=== PATIENT | male | born 1985 | race Caucasian/White ===

== ENCOUNTER 2021-02-24 09:01 | Inpatient (IN) | payer BC ==
[2021-02-24] MEDS ORDERED: ACETAMINOPHEN TAB 500 MG TAB PO STA (10:07)
[2021-02-24] MEDS ORDERED: IBUPROFEN 600 MG TAB PO STA (10:08)
[2021-02-24] MEDS ORDERED: DEXAMETHASONE SOD PHOSPHATE 10 MG/ML 1 ML VIAL IV STA (10:08)
[2021-02-24] MEDS ORDERED: SODIUM CHLORIDE 0.9% 1,000 ML IV ONE (10:08)
--- NOTE | 2021-02-24 10:33 | XR ---
EXAMINATION TYPE: XR chest 1V portable DATE OF EXAM: 02/24/2021 COMPARISON: 02/21/2015 HISTORY: Cough TECHNIQUE: Single frontal view of the chest is obtained. FINDINGS: Patchy bilateral infiltrates are seen. Limited inspiration. Heart size normal. No pneumoth orax. Osseous structures are stable. IMPRESSION: Patchy bilateral infiltrates correlate for multifocal pneumonia.
[2021-02-24 11:23] LABS: Basophils % (A) 0 %; Eosinophils % (A) 0 %; HGB 15.4 gm/dL (13.0-17.5); Lymphocytes # (A) 0.6 k/uL (1.0-4.8); Lymphocytes % (A) 14 %; MCH 30.1 pg (25.0-35.0); MCHC 35.9 g/dL (31.0-37.0); MCV 83.9 fL (80.0-100.0); Mean Platelet Volume 9.2; Monocytes # (A) 0.2 k/uL (0-1.0); Monocytes % (A) 5 %; Neutrophils # (A) 3.4 k/uL (1.3-7.7); Neutrophils % (A) 80 %; Platelet Count 161 k/uL (150-450); RBC 5.13 m/uL (4.30-5.90); RDW 12.3 % (11.5-15.5); WBC 4.2 k/uL (3.8-10.6)
[2021-02-24 11:37] LABS: ALT 57 U/L (4-49); AST 98 U/L (17-59); African American GFR (CKD) >90 (>60 ml/min/1.73 sqM); Albumin 3.8 g/dL (3.5-5.0); Alkaline Phosphatase 53 U/L (38-126); Anion Gap 11 mmol/L; Blood Urea Nitrogen 8 mg/dL (9-20); C Reactive Protein 41.1 mg/L (<10.0); Calcium 7.8 mg/dL (8.4-10.2); Carbon Dioxide 26 mmol/L (22-30); Chloride 88 mmol/L (98-107); Glucose 98 mg/dL (74-99); LDH 1623 U/L (313-618); Non-African American GFR(CKD) >90 (>60 ml/min/1.73 sqM); Potassium 3.9 mmol/L (3.5-5.1); Sodium 125 mmol/L (137-145); Total Bilirubin 0.6 mg/dL (0.2-1.3); Total Protein 6.8 g/dL (6.3-8.2)
--- NOTE | 2021-02-24 12:14 | ED ---
SOB HPI <Phu Hinojosa - Last Filed: 02/24/21 13:14> - General Source: EMS Mode of arrival: EMS <Sherry Hernandez - Last Filed: 02/24/21 14:01> - General Chief Complaint: Shortness of Breath Stated Complaint: Covid+/sob Time Seen by Provider: 02/24/21 09:16 - History of Present Illness Initial Comments: 35-year-old male patient presents to the emergency department today for evaluation of increased shortness of breath chest tightness. Started having symptoms 12 days ago. Denies being on any medication for symptoms. It the last 3 days he has become more short of breath. States he has persistent cough. States when he coughs his chest hurts. Denies any dizziness or weakness. Denies any nausea or vomiting. Denies diarrhea. States he does have decreased appetite. Reports intermittent fevers. Denies any history of medical problems. Patient denies any recent rash, fever, chills, cough, chest pain, abdominal pain , diarrhea, constipation, back pain, numbness, tingling, dizziness, weakness, hematuria, dysuria, urinary urgency, urinary frequency, headache, visual changes, or any other complaints. (Sherry Hernandez) - Related Data Home Medications Medication Instructions Recorded Confirmed No Known Home Medications 02/24/21 02/24/21 Allergies Allergy/AdvReac Type Severity Reaction Status Date / Time No Known Allergies Allergy Verified 02/24/21 10:11 Review of Systems ROS Other: All systems not noted in ROS Statement are negative. <AshishPhu - Last Filed: 02/24/21 13:14> ROS Other: All systems not noted in ROS Statement are negative. <Sherry Hernandez - Last Filed: 02/24/21 14:01> ROS Statement: Those systems with pertinent positive or pertinent negative responses have been documented in the HPI. Past Medical History Past Medical History: Asthma History of Any Multi-Drug Resistant Organisms: None Reported Past Surgical History: No Surgical Hx Reported Past Psychological History: No Psychological Hx Reported Smoking Status: Never smoker Past Alcohol Use History: None Reported Past Drug Use History: None Reported <Sherry Hernandez - Last Filed: 02/24/21 14:01> General Exam General appearance: alert, in no apparent distress, other (This is a well- developed, well-nourished adult male patient in mild respiratory distress. Vital signs upon presentation are temperature 103.0F, pulse 92, respirations 18, blood pressure 124/77, pulse ox 92%.) ENT exam: Present: normal exam, normal oropharynx, mucous membranes moist Respiratory exam: Present: normal lung sounds bilaterally, other (Tachypneic). Absent: respiratory distress, wheezes, rales, rhonchi, stridor Cardiovascular Exam: Present: regular rate, normal rhythm, normal heart sounds. Absent: systolic murmur, diastolic murmur, rubs, gallop, clicks GI/Abdominal exam: Present: soft, normal bowel sounds. Absent: distended, tenderness, guarding, rebound, rigid Neurological exam: Present: alert, oriented X3, CN II-XII intact Psychiatric exam: Present: normal affect, normal mood Skin exam: Present: warm, dry, intact, normal color. Absent: rash <Sherry Hernandez - Last Filed: 02/24/21 14:01> Course <Phu Hinojosa - Last Filed: 02/24/21 13:14> Vital Signs 02/24/21 02/24/21 02/24/21 09:06 12:18 12:21 Temperature 103 F H 101.4 F H Pulse Rate 92 80 Respiratory 18 24 Rate Blood Pressure 124/77 115/75 O2 Sat by Pulse 92 L 96 89 L Oximetry - Reevaluation(s) Reevaluation #1: 02/24/21 13:15 CURTAIN MENDER supervision I did evaluate this case I did discuss case Dr. Cowan. (Phu Hinojosa) Medical Decision Making - Lab Data Result diagrams: 02/24/21 10:11 02/24/21 10:11 <Phu Hinojosa - Last Filed: 02/24/21 13:14> - Lab Data Result diagrams: 02/24/21 10:11 02/24/21 10:11 - EKG Data -: EKG Interpreted by Me - Radiology Data Radiology results: report reviewed, image reviewed <Sherry Hernandez - Last Filed: 02/24/21 14:01> - Medical Decision Making 35-year-old male patient presents to the emergency department today for evaluation of increased shortness of breath and chest tightness. Symptoms of overt for the last 12 days. Physical examination did reveal tachypnea, clear lung sounds. Oxygen saturations were decreased. He was 89-90% with ambulation. Chest x-ray did show bilateral pneumonia. He will be admitted to the hospital and we will start vitamins, steroids, Lovenox. He will be ordered a Pro Air inhaler. He is agreeable with this plan. Dr. Cowan is accepting. Case discussed with my attending Dr. Hinojosa. (Sherry Hernandez) - Lab Data Lab Results 02/24/21 02/24/21 Range/Units 10:11 10:11 WBC 4.2 (3.8-10.6) k/uL RBC 5.13 (4.30-5.90) m/uL Hgb 15.4 (13.0-17.5) gm/dL Hct 43.0 (39.0-53.0) % MCV 83.9 (80.0-100.0) fL MCH 30.1 (25.0-35.0) pg MCHC 35.9 (31.0-37.0) g/dL RDW 12.3 (11.5-15.5) % Plt Count 161 (150-450) k/uL MPV 9.2 Neutrophils % 80 % Lymphocytes % 14 % Monocytes % 5 % Eosinophils % 0 % Basophils % 0 % Neutrophils # 3.4 (1.3-7.7) k/uL Lymphocytes # 0.6 L (1.0-4.8) k/uL Monocytes # 0.2 (0-1.0) k/uL Eosinophils # 0.0 (0-0.7) k/uL Basophils # 0.0 (0-0.2) k/uL Sodium 125 L (137-145) mmol/L Potassium 3.9 (3.5-5.1) mmol/L Chloride 88 L (98-107) mmol/L Carbon Dioxide 26 (22-30) mmol/L Anion Gap 11 mmol/L BUN 8 L (9-20) mg/dL Creatinine 0.94 (0.66-1.25) mg/dL Est GFR (CKD-EPI)AfAm >90 (>60 ml/min/1.73 sqM) Est GFR (CKD-EPI)NonAf >90 (>60 ml/min/1.73 sqM) Glucose 98 (74-99) mg/dL Calcium 7.8 L (8.4-10.2) mg/dL Total Bilirubin 0.6 (0.2-1.3) mg/dL AST 98 H (17-59) U/L ALT 57 H (4-49) U/L Alkaline Phosphatase 53 (38-126) U/L Lactate Dehydrogenase 1623 H (313-618) U/L C-Reactive Protein 41.1 H (<10.0) mg/L Total Protein 6.8 (6.3-8.2) g/dL Albumin 3.8 (3.5-5.0) g/dL - EKG Data EKG Comments: EKG obtained at 0905 shows normal sinus rhythm with a ventricular rate of 96, IN interval 160, QRS duration 98, QT 344, QTC 434. No evidence of ST elevation or depression. (Sherry Hernandez) - Radiology Data One view x-ray of the chest is obtained. Report is reviewed in its entirety. Impression by Dr. Saenz shows patchy bilateral infiltrates correlate for multifocal pneumonia. (Sherry Hernandez) Disposition <Phu Hinojosa - Last Filed: 02/24/21 13:14> Decision to Admit Reason: Admit from EC Decision Time: 13:19 <Sherry Hernandez - Last Filed: 02/24/21 14:01> Clinical Impression: COVID-19, Hypoxia Disposition: ADMITTED IP TO THIS [facility] Condition: Serious Referrals: Rosalia Hdz MD [Primary Care Provider] - 1-2 days
[2021-02-24] MEDS ORDERED: NALOXONE 0.4 MG/ML 1 ML VIAL IV PRN (13:15)
[2021-02-24] MEDS ORDERED: ONDANSETRON 4 MG/2 ML VIAL IVP PRN (13:15)
[2021-02-24] MEDS ORDERED: ENOXAPARIN 40 MG/0.4 ML SYRINGE SQ STA (13:17)
[2021-02-24] MEDS ORDERED: ALBUTEROL HFA INHALER INHALATION PRN (13:18)
[2021-02-24] MEDS: SODIUM CHLORIDE 0.9% 1,000 ML IV SCH (13:54)
[2021-02-24] MEDS: ALBUTEROL HFA INHALER INHALATION SCH ×2 (15:42→21:29)
--- NOTE | 2021-02-24 18:19 | P.CNPUL ---
History of Present Illness Consult date: 02/24/21 Reason for consult: dyspnea, pneumonia History of present illness: Morbidly obese 35-year-old male patient with a BMI of 42.1, Presenting to the emergency department with worsening shortness of breath. Symptoms started more than 10 days ago he thinks it started approximately 12 days ago. Over the past few days, he became more short of breath and he developed persistent cough and dyspnea for that reason he came into the emergency. No other symptoms of nausea vomiting or abdominal pain or diarrhea. No dizziness. No weakness. No headach es. He does have some diminished appetite. He wasn't having intermittent episodes of fever. The patient came into the emergency and the patient was febrile with a temperature of 103. He had a sodium level of 125, chloride of 88, and the white cell count was at 4.2 along with some lymphopenia. The patient had mild transaminitis with an AST of 98, ALT of 57, LDH was 1623, CRP was 41.1, normal renal function, potassium level was 3.9. EKG was showing a normal sinus rhythm. Chest x-ray showed patchy bilateral pulmonary infiltrates and multifocal pneumonia. For that reason, the patient was hospitalized. The patient is on 4 L about 2 by nasal cannula with a pulse ox of 96%. Room air pulse ox was around 88%. He was given steroids in the emergency department. The patient works at [employer] at [place] and there were lot of other individuals around them will were infected. Review of Systems Constitutional: Reports fatigue, Reports fever, Reports lethargy, Reports poor appetite Eyes: denies as per HPI, denies blurred vision, denies bulging eye, denies decreased vision, denies diplopia, denies discharge, denies dry eye, denies irritation, denies itching, denies pain, denies photophobia, denies loss of peripheral vision, denies loss of vision, denies tunnel vision/blind spots Ears: deny: decreased hearing, ear discharge, earache, tinnitus Ears, nose, mouth and throat: Denies headache, Denies sore throat Breasts: absent: as per HPI, gynecomastia Cardiovascular: Reports decreased exercise tolerance, Reports dyspnea on exertion Respiratory: Reports cough, Reports dyspnea Gastrointestinal: Reports as per HPI, Reports loss of appetite Genitourinary: Reports as per HPI, Reports flank pain Musculoskeletal: absent: ankle pain, ankle stiffness, ankle swelling, as per HPI, elbow pain, elbow stiffness, elbow swelling, foot pain, foot stiffness, foot swelling, hand pain, hand stiffness, hand swelling, hip pain, hip stiffness, hip swelling, knee pain, knee stiffness, knee swelling, shoulder pain, shoulder stiffness, shoulder swelling, wrist pain, wrist stiffness, wrist swelling Integumentary: Reports as per HPI Neurological: Reports as per HPI Psychiatric: Reports as per HPI Endocrine: Reports as per HPI, Reports fatigue Hematologic/Lymphatic: Reports as per HPI Allergic/Immunologic: Reports as per HPI Past Medical History Past Medical History: Asthma Additional Past Medical History / Comment(s): Pt tested covid + on 02/18/21 at [facility] on [address]. Other hx: Exertional asthma History of Any Multi-Drug Resistant Organisms: None Reported Past Surgical History: No Surgical Hx Reported Past Anesthesia/Blood Transfusion Reactions: Unable to Obtain Additional Past Anesthesia/Blood Transfusion Reaction / Comment(s): Pt has never had surgery Past Psychological History: No Psychological Hx Reported Smoking Status: Never smoker Past Alcohol Use History: None Reported Past Drug Use History: None Reported - Past Family History Father Family Medical History: Myocardial Infarction (VT) Additional Family Medical History / Comment(s): Father had MIs. Mother Family Medical History: Cancer Additional Family Medical History / Comment(s): Mother had breast cancer. Medications and Allergies Home Medications Medication Instructions Recorded Confirmed Type No Known Home Medications 02/24/21 02/24/21 History Allergies Allergy/AdvReac Type Severity Reaction Status Date / Time No Known Allergies Allergy Verified 02/24/21 10:11 Physical Exam Vitals: Vital Signs Temp Pulse Resp BP Pulse Ox 02/24/21 16:14 94 20 120/54 94 L 02/24/21 13:57 98.1 F 80 20 125/53 94 L 02/24/21 12:21 89 L 02/24/21 12:18 101.4 F H 80 24 115/75 96 02/24/21 09:06 103 F H 92 18 124/77 92 L Intake and Output 02/24/21 02/24/21 02/24/21 06:59 14:59 22:59 Other: Weight 129.274 kg Obese, comfortable, mildly labored breathing even at rest. BMI is 42.1. Not using accessory muscles of breathing. Head exam was generally normal. There was no scleral icterus or corneal arcus. Mucous membranes were moist. Neck was supple and without jugular venous distension, thyromegaly, or carotid bruits. Carotids were easily palpable bilaterally. There was no adenopathy. Lungs sounds are diminished in the patient's vessels are quite diminished bilaterally. Cardiac exam revealed the PMI to be normally situated and sized. The rhythm was regular and no extrasystoles were noted during several minutes of auscultation. The first and second heart sounds were normal and physiologic splitting of the second heart sound was noted. There were no murmurs, rubs, clicks, or gallops. Abdomen is soft. Organs cannot be accurately palpated as the patient is morbidl y obese. No direct tenderness but no rebound tenderness. No guarding. Examination of the extremities revealed easily palpable radial, femoral and pedal pulses. There was no cyanosis, clubbing or edema. Examination of the skin revealed no evidence of significant rashes, suspicious appearing nevi or other concerning lesions. Neurologically, the patient is awake and alert and the patient does not have any focal neurological deficit. Cranial nerves are essentially intact. Results - Laboratory Findings CBC and BMP: 02/24/21 10:11 02/24/21 10:11 Abnormal lab findings: Abnormal Labs 02/24/21 02/24/21 10:11 10:11 Lymphocytes # 0.6 L Sodium 125 L Chloride 88 L BUN 8 L Calcium 7.8 L AST 98 H ALT 57 H Lactate Dehydrogenase 1623 H C-Reactive Protein 41.1 H - Diagnostic Findings Chest x-ray: image reviewed Assessment and Plan Plan: 1 acute COVID-19 related to pneumonia. The patient developed bilateral pulmonary infiltrates consistent with COVID-19 related pneumonia. Blood work is consistent with COVID-19. LDH level is elevated. The patient has lymphopenia. D-dimer needs to be checked. Chest x-ray showing multifocal bilateral pneumonia. 2 acute hypoxic respiratory failure currently on 4 L of oxygen by nasal cannula 3 morbid obesity with a BMI 42 4 possible sleep breathing disorder/obstructive sleep apnea 5 lymphopenia 6 transaminitis secondary to COVID-19 7 hypochloremic hyponatremia Plan IV fluids with normal saline at the rate of 75 mL an hour Oxygen supplementation titrate the flow to maintain saturation above 90% Decadron 6 mg IV every 24 hours Lovenox 40 mg subcu every 24 hours Not a candidate for Remdesivir as the patient is outside the window We'll continue to follow. Monitor oxygenation. We'll continue to follow make further recommendations based on his progress
[2021-02-24] MEDS: ASCORBIC ACID 500 MG TAB PO SCH (21:12)
[2021-02-25] MEDS: ACETAMINOPHEN TAB 325 MG TAB PO PRN (04:41)
[2021-02-25] MEDS: SODIUM CHLORIDE 0.9% 1,000 ML IV SCH ×2 (05:32→17:39)
--- NOTE | 2021-02-25 09:48 | P.PN ---
Subjective Progress Note Date: 02/25/21 Osmar Drummond, is a 35-year-old male patient of Dr. Hdz, who presented to [facility] emergency room with a chief complaint of worsening shortness of breath and chest tightness. Patient was also having persistent cough his symptoms started 12 days ago however he had severe worsening of his symptoms in the last 3 days. He stated that last Saturday he was tested for COVID-19, results came back positive on Saturday. He was evaluated in the emergency room vital examination on presentation revealed a temperature of 103 pulse 92 respiration 18 blood pressure 124/77 pulse ox 92% on room air. White blood count was 4.2 hemoglobin 15.4 platelet count 161 sodium 125 potassium 3.9 chloride 88 calcium 7.8 BUN 8 creatinine 0.94 AST 98 ALT 57 LDH 1623 C-reactive protein 41.1 EKG done in the emergency room revealed normal sinus rhythm normal EKG, chest x-ray done in the emergency room revealed patchy bilateral infiltrates compatible with multifocal pneumonia no pneumothorax. Patient was admitted to medical floor pulmonary consultation was requested. On 02/25/2021 patient was seen and examined on the medical floor he is alert and oriented 3 in no distress, he is still complaining of cough and shortness of breath otherwise he denies any complaints there is no fever or chills no hea dache or dizziness no chest pain no nausea or vomiting no abdominal pain no diarrhea no blood in the stools no burning was urination no frequency or urgency and no hematuria Objective - Vital Signs Vital signs: Vital Signs Temp 101.8 F H 02/25/21 04:30 Pulse 113 H 02/25/21 04:30 Resp 34 H 02/25/21 04:30 BP 119/69 02/25/21 04:30 Pulse Ox 82 L 02/25/21 04:30 Intake & Output 02/24/21 02/25/21 02/25/21 18:59 06:59 18:59 Intake Total 1975 Output Total 1725 Balance 250 Weight 129.274 kg Intake: Intake, IV Titration 675 Amount Sodium Chloride 0.9% 1, 675 000 ml @ 75 mls/hr IV . [id number] TERI Rx#:[id number] Oral 1300 Output: Urine 1725 Other: # Bowel Movements 0 - Exam In general patient is alert and oriented 3 in no apparent distress HEENT head normocephalic and atraumatic Neck is supple no JVD no goiter no lymphadenopathy Chest exam reveals a few scattered crackles no wheezing Cardiac exam reveals regular heart sounds no gallops no murmurs Abdomen is soft nontender no organomegaly with normal bowel sounds Extremity exam reveals no edema no cyanosis or clubbing Neurological examination reveals no gross focal deficit - Labs CBC & Chem 7: 02/24/21 10:11 02/24/21 10:11 Labs: Abnormal Lab Results - Last 24 Hours (Table) 02/24/21 02/24/21 02/24/21 Range/Units 10:11 10:11 17:17 Lymphocytes # 0.6 L (1.0-4.8) k/uL D-Dimer 0.75 H (<0.60) mg/L FEU Sodium 125 L (137-145) mmol/L Chloride 88 L (98-107) mmol/L BUN 8 L (9-20) mg/dL Calcium 7.8 L (8.4-10.2) mg/dL Ferritin 2011.5 H (22.0-322.0) ng/mL AST 98 H (17-59) U/L ALT 57 H (4-49) U/L Lactate Dehydrogenase 1623 H (313-618) U/L C-Reactive Protein 41.1 H (<10.0) mg/L Assessment and Plan Plan: 1. Acute COVID-19 pneumonia patient started on IV Decadron and subcu Lovenox pulmonary consultation was requested 2. Underlying history of asthma 3. Underlying history of morbid obesity 4. Hyponatremia, patient started on IV normal months leading 5. Elevated liver enzymes, will monitor closely At this time patient was seen and examined in the emergency room he was started on subcu Lovenox and IV dexamethasone, vitamin C and vitamin D and zinc supplements he was also started on inhaled bronchodilators patient will be admitted to medical floor pulmonary consultation was requested. Patient was seen by pulmonary he is maintained on oxygen supplements, IV Decadron, subcu Lovenox, patient has improved since yesterday
--- NOTE | 2021-02-25 09:49 | P.PN ---
Subjective Progress Note Date: 02/25/21 Morbidly obese 35-year-old male patient with a BMI of 42.1, Presenting to the emergency department with worsening shortness of breath. Symptoms started more than 10 days ago he thinks it started approximately 12 days ago. Over the past few days, he became more short of breath and he developed persistent cough and dyspnea for that reason he came into the emergency. No other symptoms of nausea vomiting or abdominal pain or diarrhea. No dizziness. No weakness. No headaches. He does have some diminished appetite. He wasn't having intermittent episodes of fever. The patient came into the emergency and the patient was febrile with a temperature of 103. He had a sodium level of 125, chloride of 88, and the white cell count was at 4.2 along with some lymphopenia. The patient had mild transaminitis with an AST of 98, ALT of 57, LDH was 1623, CRP was 41.1, normal renal function, potassium level was 3.9. EKG was showing a normal sinus rhythm. Chest x-ray showed patchy bilateral pulmonary infiltrates and multifocal pneumonia. For that reason, the patient was hospitalized. The patient is on 4 L about 2 by nasal cannula with a pulse ox of 96%. Room air pulse ox was around 88%. He was given steroids in the emergency department. The patient works at [employer] at [place] and there were lot of other individuals around them will were infected. On today's evaluation of , the patient remains on 4 L of oxygen by nasal cannula with a pulse ox of low 90s. Still having a fever. His T-max was 101.4 which she is taking Tylenol. He is currently on Decadron 6 mg IV every 24 hours and the patient is also on Lovenox for DVT prophylaxis. Blood work from today is pending. D-dimer is still low.. Is hard for him to swallow and the patient is having a diminished appetite. He remains on IV fluids. His appetite remains quite diminished. Breathing is comfortable. Oxygenation has remained the same Objective - Vital Signs Vital signs: Vital Signs Temp 101.4 F H 02/25/21 08:00 Pulse 98 02/25/21 08:00 Resp 18 02/25/21 08:00 BP 134/81 02/25/21 08:00 Pulse Ox 90 L 02/25/21 08:00 Intake & Output 02/24/21 02/25/21 02/25/21 18:59 06:59 18:59 Intake Total 1974 Output Total 1725 Balance 250 Weight 129.274 kg Intake: Intake, IV Titration 675 Amount Sodium Chloride 0.9% 1, 675 000 ml @ 75 mls/hr IV . [id number] TERI Rx#:[id number] Oral 1300 Output: Urine 1725 Other: # Bowel Movements 0 - Exam Obese, comfortable, mildly labored breathing even at rest. BMI is 42.1. Not using accessory muscles of breathing. Head exam was generally normal. There was no scleral icterus or corneal arcus. Mucous membranes were moist. Neck was supple and without jugular venous distension, thyromegaly, or carotid bruits. Carotids were easily palpable bilaterally. There was no adenopathy. Lungs sounds are diminished in the patient's vessels are quite diminished bilaterally. Cardiac exam revealed the PMI to be normally situated and sized. The rhythm was regular and no extrasystoles were noted during several minutes of auscultation. The first and second heart sounds were normal and physiologic splitting of the second heart sound was noted. There were no murmurs, rubs, clicks, or gallops. Abdomen is soft. Organs cannot be accurately palpated as the patient is morbidl y obese. No direct tenderness but no rebound tenderness. No guarding. Examination of the extremities revealed easily palpable radial, femoral and pedal pulses. There was no cyanosis, clubbing or edema. Examination of the skin revealed no evidence of significant rashes, suspicious appearing nevi or other concerning lesions. Neurologically, the patient is awake and alert and the patient does not have any focal neurological deficit. Cranial nerves are essentially intact. - Labs CBC & Chem 7: 02/24/21 10:11 02/24/21 10:11 Labs: Abnormal Lab Results - Last 24 Hours (Table) 02/24/21 02/24/21 02/24/21 Range/Units 10:11 10:11 17:17 Lymphocytes # 0.6 L (1.0-4.8) k/uL D-Dimer 0.75 H (<0.60) mg/L FEU Sodium 125 L (137-145) mmol/L Chloride 88 L (98-107) mmol/L BUN 8 L (9-20) mg/dL Calcium 7.8 L (8.4-10.2) mg/dL Ferritin 2011.5 H (22.0-322.0) ng/mL AST 98 H (17-59) U/L ALT 57 H (4-49) U/L Lactate Dehydrogenase 1623 H (313-618) U/L C-Reactive Protein 41.1 H (<10.0) mg/L Assessment and Plan Plan: 1 acute COVID-19 related to pneumonia. The patient developed bilateral pulmonary infiltrates consistent with COVID-19 related pneumonia. Blood work is consistent with COVID-19. LDH level is elevated. The patient has lymphopenia. D-dimer needs to be checked. Chest x-ray showing multifocal bilateral pneumonia.. The patient continues to have fever on today's evaluation and he remains on oxygen at 4 L per minute nasal cannula. No decompensation and his respiratory status. He remains on IV fluids, Decadron and Lovenox. 2 acute hypoxic respiratory failure currently on 4 L of oxygen by nasal cannula 3 morbid obesity with a BMI 42 4 possible sleep breathing disorder/obstructive sleep apnea 5 lymphopenia 6 transaminitis secondary to COVID-19 7 hypochloremic hyponatremia Plan IV fluids with normal saline at the rate of 75 mL an hour Oxygen supplementation titrate the flow to maintain saturation above 90%, currently still on 4 L Decadron 6 mg IV every 24 hours Lovenox 40 mg subcu every 24 hours Not a candidate for Remdesivir as the patient is outside the window We'll continue to follow. Monitor oxygenation. We'll continue to follow make further recommendations based on his progress
[2021-02-25] MEDS: ALBUTEROL HFA INHALER INHALATION SCH ×4 (09:50→20:45)
[2021-02-25] MEDS: ZINC SULFATE 220 MG CAP PO SCH (10:00)
[2021-02-25] MEDS: DEXAMETHASONE SOD PHOSPHATE 10 MG/ML 1 ML VIAL IV SCH (10:01)
[2021-02-25] MEDS: ASCORBIC ACID 500 MG TAB PO SCH ×2 (10:01→21:10)
[2021-02-25] MEDS: ENOXAPARIN 40 MG/0.4 ML SYRINGE SQ SCH (10:01)
[2021-02-25] MEDS: CHOLECALCIFEROL 25 MCG (1000 IU) TABLET PO SCH (10:01)
[2021-02-25 11:10] LABS: Basophils % (A) 0 %; Eosinophils % (A) 0 %; HCT 42.8 % (39.0-53.0); HGB 14.6 gm/dL (13.0-17.5); Lymphocytes # (A) 0.6 k/uL (1.0-4.8); Lymphocytes % (A) 11 %; MCH 29.2 pg (25.0-35.0); MCHC 34.2 g/dL (31.0-37.0); MCV 85.2 fL (80.0-100.0); Mean Platelet Volume 8.2; Monocytes # (A) 0.2 k/uL (0-1.0); Monocytes % (A) 4 %; Neutrophils # (A) 4.8 k/uL (1.3-7.7); Neutrophils % (A) 85 %; Platelet Count 177 k/uL (150-450); RBC 5.02 m/uL (4.30-5.90); RDW 12.4 % (11.5-15.5); WBC 5.7 k/uL (3.8-10.6)
[2021-02-25 11:27] LABS: ALT 46 U/L (4-49); AST 77 U/L (17-59); African American GFR (CKD) >90 (>60 ml/min/1.73 sqM); Albumin 3.4 g/dL (3.5-5.0); Alkaline Phosphatase 48 U/L (38-126); Anion Gap 6 mmol/L; Blood Urea Nitrogen 13 mg/dL (9-20); Carbon Dioxide 29 mmol/L (22-30); Chloride 94 mmol/L (98-107); Glucose 124 mg/dL (74-99); LDH 1440 U/L (313-618); Non-African American GFR(CKD) >90 (>60 ml/min/1.73 sqM); Potassium 4.4 mmol/L (3.5-5.1); Sodium 129 mmol/L (137-145); Total Bilirubin 0.6 mg/dL (0.2-1.3); Total Protein 6.2 g/dL (6.3-8.2)
[2021-02-26] MEDS: SODIUM CHLORIDE 0.9% 1,000 ML IV SCH ×2 (05:45→20:50)
[2021-02-26] MEDS: ALBUTEROL HFA INHALER INHALATION SCH ×4 (07:38→19:47)
[2021-02-26] MEDS: DEXAMETHASONE SOD PHOSPHATE 10 MG/ML 1 ML VIAL IV SCH (09:15)
[2021-02-26] MEDS: ASCORBIC ACID 500 MG TAB PO SCH ×2 (09:15→20:49)
[2021-02-26] MEDS: CHOLECALCIFEROL 25 MCG (1000 IU) TABLET PO SCH (09:15)
[2021-02-26] MEDS: ENOXAPARIN 40 MG/0.4 ML SYRINGE SQ SCH (09:16)
[2021-02-26] MEDS: ZINC SULFATE 220 MG CAP PO SCH (09:16)
--- NOTE | 2021-02-26 10:02 | P.PN ---
Subjective Progress Note Date: 02/26/21 Morbidly obese 35-year-old male patient with a BMI of 42.1, Presenting to the emergency department with worsening shortness of breath. Symptoms started more than 10 days ago he thinks it started approximately 12 days ago. Over the past few days, he became more short of breath and he developed persistent cough and dyspnea for that reason he came into the emergency. No other symptoms of nausea vomiting or abdominal pain or diarrhea. No dizziness. No weakness. No headaches. He does have some diminished appetite. He wasn't having intermittent episodes of fever. The patient came into the emergency and the patient was febrile with a temperature of 103. He had a sodium level of 125, chloride of 88, and the white cell count was at 4.2 along with some lymphopenia. The patient had mild transaminitis with an AST of 98, ALT of 57, LDH was 1623, CRP was 41.1, normal renal function, potassium level was 3.9. EKG was showing a normal sinus rhythm. Chest x-ray showed patchy bilateral pulmonary infiltrates and multifocal pneumonia. For that reason, the patient was hospitalized. The patient is on 4 L about 2 by nasal cannula with a pulse ox of 96%. Room air pulse ox was around 88%. He was given steroids in the emergency department. The patient works at [employer] and there were lot of other individuals around them will were infected. On today's evaluation of , the patient remains on 4 L of oxygen by nasal cannula with a pulse ox of low 90s. Still having a fever. His T-max was 101.4 which she is taking Tylenol. He is currently on Decadron 6 mg IV every 24 hours and the patient is also on Lovenox for DVT prophylaxis. Blood work from today is pending. D-dimer is still low.. Is hard for him to swallow and the patient is having a diminished appetite. He remains on IV fluids. His appetite remains quite diminished. Breathing is comfortable. Oxygenation has remained the same 02/26/2021, the patient remains on oxygen at 4 L per minute and he is able to maintain his pulse ox above 90%. He was having persistent fever and currently he is afebrile. His last temperature spike was yesterday at 8:00 where he had a temperature of 101.4. Since then, the patient has not spiked any temperature. He also has been taking Tylenol on an as-needed basis for fever. He remains on Decadron 16 g IV every 24 hours. He is on multivitamin supplements. His d- dimer was low and the patient was given Lovenox for DVT prophylaxis and his d- dimer today's at 0.7 and his LDH level is down to 1440 and his CRP level is down to 6.0. Clinically is doing well. His IV fluids. Sodium level is improving it's up to 129. Objective - Vital Signs Vital signs: Vital Signs Temp 98.5 F 02/26/21 08:00 Pulse 100 02/26/21 08:00 Resp 18 02/26/21 08:00 BP 132/83 02/26/21 08:00 Pulse Ox 87 L 02/26/21 08:00 Intake & Output 02/25/21 02/26/21 02/26/21 18:59 06:59 18:59 Intake Total 240 3180 Output Total 1350 2450 Balance -1110 730 Weight 129.274 kg Intake: Intake, IV Titration 900 Amount Sodium Chloride 0.9% 1, 900 000 ml @ 75 mls/hr IV . [id number] [facility] Rx#:[id number] Oral 240 2280 Output: Urine 1350 2450 Other: # Voids 3 # Bowel Movements 0 - Exam Obese, comfortable, mildly labored breathing even at rest. BMI is 42.1. Not using accessory muscles of breathing. Head exam was generally normal. There was no scleral icterus or corneal arcus. Mucous membranes were moist. Neck was supple and without jugular venous distension, thyromegaly, or carotid bruits. Carotids were easily palpable bilaterally. There was no adenopathy. Lungs sounds are diminished in the patient's vessels are quite diminished bilaterally. Cardiac exam revealed the PMI to be normally situated and sized. The rhythm was regular and no extrasystoles were noted during several minutes of auscultation. The first and second heart sounds were normal and physiologic splitting of the second heart sound was noted. There were no murmurs, rubs, clicks, or gallops. Abdomen is soft. Organs cannot be accurately palpated as the patient is morbidly obese. No direct tenderness but no rebound tenderness. No guarding. Examination of the extremities revealed easily palpable radial, femoral and pedal pulses. There was no cyanosis, clubbing or edema. Examination of the skin revealed no evidence of significant rashes, suspicious appearing nevi or other concerning lesions. Neurologically, the patient is awake and alert and the patient does not have any focal neurological deficit. Cranial nerves are essentially intact. - Labs CBC & Chem 7: 02/25/21 10:10 02/25/21 10:10 Labs: Abnormal Lab Results - Last 24 Hours (Table) 02/25/21 02/25/21 02/25/21 Range/Units 10:10 10:10 10:10 Lymphocytes # 0.6 L (1.0-4.8) k/uL D-Dimer 0.77 H (<0.60) mg/L FEU Sodium 129 L (137-145) mmol/L Chloride 94 L (98-107) mmol/L Glucose 124 H (74-99) mg/dL Calcium 8.0 L (8.4-10.2) mg/dL AST 77 H (17-59) U/L Lactate Dehydrogenase 1440 H (313-618) U/L C-Reactive Protein 6.0 H (<1.0) mg/dL Total Protein 6.2 L (6.3-8.2) g/dL Albumin 3.4 L (3.5-5.0) g/dL Assessment and Plan Plan: 1 acute COVID-19 related to pneumonia. The patient developed bilateral pulmonary infiltrates consistent with COVID-19 related pneumonia. Blood work is consistent with COVID-19. LDH level is elevated. The patient has lymphopenia. . Chest x-ray showing multifocal bilateral pneumonia.. The patient is afebrile and he on oxygen at 4 L per minute nasal cannula. No decompensation and his respiratory status. He remains on IV fluids, Decadron and Lovenox. 2 acute hypoxic respiratory failure currently on 4 L of oxygen by nasal cannula 3 morbid obesity with a BMI 42 4 possible sleep breathing disorder/obstructive sleep apnea 5 lymphopenia 6 transaminitis secondary to COVID-19 7 hypochloremic hyponatremia improving and his sodium level is up to 129 Plan IV fluids with normal saline at the rate of 75 mL an hour Oxygen supplementation titrate the flow to maintain saturation above 90%, currently still on 4 L Decadron 6 mg IV every 24 hours Lovenox 40 mg subcu every 24 hours Not a candidate for Remdesivir as the patient is outside the window Significant interval worsening or improvement and the patient continues to be somewhat short of breath and he wants to go home. I think at this is possible after we confirm that the patient does not demonstrate any worsening in his oxygenation over the next 24-48 hours. A repeat chest x-ray will be done today. We'll continue to follow. Subsequently, during her evaluation, the patient was found to have lower pulse ox the right titrated flow up to maintain a saturation above 90% and the patient will be given a immediate chest x-ray. I personally feel that the patient has progressed and his oxygenation is worse and his breathing is more labored. I would not send this patient home at any point in time for now pending further workup and monitoring. We'll continue to follow. Monitor oxygenation. We'll continue to follow make further recommendations based on his progress
[2021-02-26] MEDS: ALPRAZolam 0.5 MG TAB PO PRN (10:12)
--- NOTE | 2021-02-26 10:31 | XR ---
EXAMINATION TYPE: XR chest 1V portable DATE OF EXAM: 02/26/2021 CLINICAL HISTORY: Difficulty breathing and cough progress study. TECHNIQUE: Single AP portable upright view of the chest is obtained. COMPARISON: Chest x-ray from 2 days earlier FINDINGS: Persistent low lung volumes with mid to lower lung increased opacities bilaterally. Stable mild cardiomegaly. Osseous structures remain intact. IMPRESSION: Low lung volumes with persistent mid to lower lungs multifocal and confluent opacities co nsistent with covid-19 infection, no significant change from most recent x-ray.
[2021-02-26 11:37] LABS: Basophils % (A) 0 %; Eosinophils % (A) 0 %; HCT 40.7 % (39.0-53.0); HGB 14.2 gm/dL (13.0-17.5); Lymphocytes # (A) 0.5 k/uL (1.0-4.8); Lymphocytes % (A) 7 %; MCH 29.5 pg (25.0-35.0); MCHC 34.8 g/dL (31.0-37.0); MCV 84.7 fL (80.0-100.0); Mean Platelet Volume 8.1; Monocytes # (A) 0.3 k/uL (0-1.0); Monocytes % (A) 4 %; Neutrophils # (A) 6.1 k/uL (1.3-7.7); Neutrophils % (A) 88 %; Platelet Count 230 k/uL (150-450); RBC 4.81 m/uL (4.30-5.90); RDW 12.7 % (11.5-15.5); WBC 6.9 k/uL (3.8-10.6)
[2021-02-26 11:51] LABS: ALT 46 U/L (4-49); AST 76 U/L (17-59); African American GFR (CKD) >90 (>60 ml/min/1.73 sqM); Albumin 3.3 g/dL (3.5-5.0); Alkaline Phosphatase 50 U/L (38-126); Anion Gap 7 mmol/L; Blood Urea Nitrogen 16 mg/dL (9-20); C Reactive Protein 7.2 mg/dL (<1.0); Carbon Dioxide 26 mmol/L (22-30); Chloride 93 mmol/L (98-107); Glucose 113 mg/dL (74-99); LDH 1735 U/L (313-618); Non-African American GFR(CKD) >90 (>60 ml/min/1.73 sqM); Potassium 4.7 mmol/L (3.5-5.1); Sodium 126 mmol/L (137-145); Total Bilirubin 0.7 mg/dL (0.2-1.3); Total Protein 6.2 g/dL (6.3-8.2)
--- NOTE | 2021-02-26 13:37 | P.PN ---
Subjective Progress Note Date: 02/26/21 Osmar Drummond, is a 35-year-old male patient of Dr. Hdz, who presented to [facility] emergency room with a chief complaint of worsening shortness of breath and chest tightness. Patient was also having persistent cough his symptoms started 12 days ago however he had severe worsening of his symptoms in the last 3 days. He stated that last Saturday he was tested for COVID-19, results came back positive on Saturday. He was evaluated in the emergency room vital examination on presentation revealed a temperature of 103 pulse 92 respiration 18 blood pressure 124/77 pulse ox 92% on room air. White blood count was 4.2 hemoglobin 15.4 platelet count 161 sodium 125 potassium 3.9 chloride 88 calcium 7.8 BUN 8 creatinine 0.94 AST 98 ALT 57 LDH 1623 C-reactive protein 41.1 EKG done in the emergency room revealed normal sinus rhythm normal EKG, chest x-ray done in the emergency room revealed patchy bilateral infiltrates compatible with multifocal pneumonia no pneumothorax. Patient was admitted to medical floor pulmonary consultation was requested. On 02/25/2021 patient was seen and examined on the medical floor he is alert and oriented 3 in no distress, he is still complaining of cough and shortness of breath otherwise he denies any complaints there is no fever or chills no hea dache or dizziness no chest pain no nausea or vomiting no abdominal pain no diarrhea no blood in the stools no burning was urination no frequency or urgency and no hematuria. On 02/26/2021 patient was seen and examined on the medical floor he is alert and oriented 3 in no distress he seems to be worse today he is having more tachycardia and tachypnea, his temperature is 99.8 pulse ox is down to 82% on 15 L high flow cannula inflammatory markers are up his LDH is 1735 up from 1440 yesterday C-reactive protein is up to 7.2 up from 6 yesterday d-dimer is up to 1.21 up from 0.77 yesterday, at this time patient is maintained on inhaled bronchodilators, IV Decadron, subcu Lovenox,, repeat chest x-ray done today reveals by basilar infiltrates and opacities consistent with COVID-19 infection without any significant change from previous x-ray. Objective - Vital Signs Vital signs: Vital Signs Temp 98.5 F 02/26/21 08:00 Pulse 100 02/26/21 08:00 Resp 18 02/26/21 08:00 BP 132/83 02/26/21 08:00 Pulse Ox 87 L 02/26/21 08:00 Intake & Output 02/25/21 02/26/21 02/26/21 18:59 06:59 18:59 Intake Total 240 3180 Output Total 1350 2450 Balance -1110 730 Weight 129.274 kg Intake: Intake, IV Titration 900 Amount Sodium Chloride 0.9% 1, 900 000 ml @ 75 mls/hr IV . [id number] [facility] Rx#:[id number] Oral 240 2280 Output: Urine 1350 2450 Other: Voiding Method Urinal # Voids 3 # Bowel Movements 0 - Exam In general patient is alert and oriented 3 in no apparent distress HEENT head normocephalic and atraumatic Neck is supple no JVD no goiter no lymphadenopathy Chest exam reveals a few scattered crackles no wheezing Cardiac exam reveals regular heart sounds no gallops no murmurs Abdomen is soft nontender no organomegaly with normal bowel sounds Extremity exam reveals no edema no cyanosis or clubbing Neurological examination reveals no gross focal deficit - Labs CBC & Chem 7: 02/26/21 10:58 02/26/21 10:58 Labs: Abnormal Lab Results - Last 24 Hours (Table) 02/25/21 02/25/21 02/25/21 Range/Units 10:10 10:10 10:10 Lymphocytes # 0.6 L (1.0-4.8) k/uL D-Dimer 0.77 H (<0.60) mg/L FEU Sodium 129 L (137-145) mmol/L Chloride 94 L (98-107) mmol/L Glucose 124 H (74-99) mg/dL Calcium 8.0 L (8.4-10.2) mg/dL AST 77 H (17-59) U/L Lactate Dehydrogenase 1440 H (313-618) U/L C-Reactive Protein 6.0 H (<1.0) mg/dL Total Protein 6.2 L (6.3-8.2) g/dL Albumin 3.4 L (3.5-5.0) g/dL Assessment and Plan Plan: 1. Acute COVID-19 pneumonia patient started on IV Decadron and subcu Lovenox pulmonary consultation was requested 2. Underlying history of asthma 3. Underlying history of morbid obesity 4. Hyponatremia, patient started on IV normal months leading 5. Elevated liver enzymes, will monitor closely At this time patient was seen and examined in the emergency room he was started on subcu Lovenox and IV dexamethasone, vitamin C and vitamin D and zinc supplements he was also started on inhaled bronchodilators patient will be admitted to medical floor pulmonary consultation was requested. Patient was seen by pulmonary he is maintained on oxygen supplements, IV Decadron, subcu Lovenox, patient has improved since yesterday
[2021-02-27 08:16] LABS: Basophils % (A) 0 %; Eosinophils % (A) 0 %; HGB 13.8 gm/dL (13.0-17.5); Lymphocytes # (A) 0.6 k/uL (1.0-4.8); Lymphocytes % (A) 9 %; MCH 30.1 pg (25.0-35.0); MCHC 35.5 g/dL (31.0-37.0); MCV 84.8 fL (80.0-100.0); Monocytes # (A) 0.3 k/uL (0-1.0); Monocytes % (A) 4 %; Neutrophils # (A) 5.3 k/uL (1.3-7.7); Neutrophils % (A) 85 %; Platelet Count 262 k/uL (150-450); RBC 4.59 m/uL (4.30-5.90); RDW 12.9 % (11.5-15.5); WBC 6.2 k/uL (3.8-10.6)
--- NOTE | 2021-02-27 08:20 | XR ---
EXAMINATION TYPE: XR chest 1V portable DATE OF EXAM: 02/27/2021 COMPARISON: Chest x-ray 02/26/2021 HISTORY: Covid pneumonia, abnormal chest x-ray TECHNIQUE: Single frontal view of the chest is obtained. FINDINGS: Bilateral airspace disease is present. Density somewhat more confluent, exam is expiratory and rotated. No evident pneumothorax or pleural effusion. Cardiomediastinal silhouette thought likel y to be stable accounting for differences in technique. IMPRESSION: Correlate for pneumonia.
[2021-02-27] MEDS: ALBUTEROL HFA INHALER INHALATION SCH ×4 (08:21→21:17)
[2021-02-27 08:29] LABS: ALT 43 U/L (4-49); AST 69 U/L (17-59); African American GFR (CKD) >90 (>60 ml/min/1.73 sqM); Albumin 3.1 g/dL (3.5-5.0); Alkaline Phosphatase 46 U/L (38-126); Anion Gap 8 mmol/L; Blood Urea Nitrogen 13 mg/dL (9-20); C Reactive Protein 8.9 mg/dL (<1.0); Calcium 7.8 mg/dL (8.4-10.2); Carbon Dioxide 25 mmol/L (22-30); Chloride 94 mmol/L (98-107); Glucose 106 mg/dL (74-99); LDH 1969 U/L (313-618); Non-African American GFR(CKD) >90 (>60 ml/min/1.73 sqM); Sodium 127 mmol/L (137-145); Total Bilirubin 0.7 mg/dL (0.2-1.3); Total Protein 5.9 g/dL (6.3-8.2)
[2021-02-27] MEDS: SODIUM CHLORIDE 0.9% 1,000 ML IV SCH ×2 (09:10→21:28)
[2021-02-27] MEDS: DEXAMETHASONE SOD PHOSPHATE 10 MG/ML 1 ML VIAL IV SCH (09:11)
[2021-02-27] MEDS: ASCORBIC ACID 500 MG TAB PO SCH ×2 (09:11→21:28)
[2021-02-27] MEDS: CHOLECALCIFEROL 25 MCG (1000 IU) TABLET PO SCH (09:11)
[2021-02-27] MEDS: ZINC SULFATE 220 MG CAP PO SCH (09:11)
[2021-02-27] MEDS: ENOXAPARIN 40 MG/0.4 ML SYRINGE SQ SCH (09:12)
--- NOTE | 2021-02-27 13:05 | P.PN ---
Subjective Progress Note Date: 02/27/21 Principal diagnosis: Shortness of breath. Progress note dated 02/27/2021. 35-year-old male admitted with a diagnosis of acute hypoxemic respiratory failure secondary to COVID 19 pneumonia. Chest x-ray showed multifocal bilateral infiltrates. In addition, the patient is morbidly obese, likely has sleep apnea syndrome, has lymphopenia, hyponatremia, and elevated liver function tests, all secondary to COVID 19. Currently, the patient's on saline at 75 mL an hour, and high flow nasal O2 at 15 L/m. White count 6.2, hemoglobin 13.8, hematocrit 39.0, and platelet count 262,000. D-dimer is 1.51. Sodium 127, potassium 4, chlorides 94, CO2 25, anion gap 8, BUN 13, creatinine 0.81. LDH is 1969, and C-reactive protein is 8.9. Chest x-ray shows bilateral infiltrates. Objective - Vital Signs Vital signs: Vital Signs Temp 99.1 F 02/27/21 08:35 Pulse 100 02/27/21 08:35 Resp 20 02/27/21 08:35 BP 121/84 02/27/21 08:35 Pulse Ox 87 L 02/27/21 08:35 Intake & Output 02/26/21 02/27/21 02/27/21 18:59 06:59 18:59 Intake Total 600 Output Total 1300 500 Balance -1300 100 Intake: Intake, IV Titration 600 Amount Sodium Chloride 0.9% 1, 600 000 ml @ 75 mls/hr IV . [id number] [facility] Rx#:[id number] Output: Urine 1300 500 Other: Voiding Method Urinal Urinal # Voids 1 # Bowel Movements 1 1 - Exam No acute distress, oriented 3. Currently on 15 L high flow nasal O2. HEENT examination is grossly unremarkable. Neck supple. Full range of motion. No adenopathy thyromegaly or neck vein distention. Cardiovascular examination reveals regular rhythm rate. S1-S2 normal. No S3 or S4. No discernible murmur noted. Heart sounds are distant. Lungs reveal diffuse bilateral rhonchi. No wheezes. Breath sounds equal bilaterally. Some bibasilar crackles are noted. Abdomen soft bowel sounds are heard. No masses or tenderness. Extremities are intact. No cyanosis clubbing or edema. Skin is without rash or lesion. Neurologic examination is brief but nonfocal. - Labs CBC & Chem 7: 02/27/21 07:48 02/27/21 07:48 Labs: Abnormal Lab Results - Last 24 Hours (Table) 02/27/21 02/27/21 02/27/21 Range/Units 07:48 07:48 07:48 Lymphocytes # 0.6 L (1.0-4.8) k/uL D-Dimer 1.51 H (<0.60) mg/L FEU Sodium 127 L (137-145) mmol/L Chloride 94 L (98-107) mmol/L Glucose 106 H (74-99) mg/dL Calcium 7.8 L (8.4-10.2) mg/dL AST 69 H (17-59) U/L Lactate Dehydrogenase 1969 H (313-618) U/L C-Reactive Protein 8.9 H (<1.0) mg/dL Total Protein 5.9 L (6.3-8.2) g/dL Albumin 3.1 L (3.5-5.0) g/dL Assessment and Plan Assessment: Acute hypoxemic respiratory failure, secondary to COVID 19 pneumonia/pneumonitis. Morbid obesity. Possible sleep apnea syndrome. Lymphopenia. Elevated liver function tests, secondary to coronavirus infection. Hyponatremia, improved. Plan: Plan dated 02/27/2021. The patient remains on saline 75 mL an hour, and nasal O2, high flow, and 15 L/m. The patient remains on Decadron and Lovenox. The patient was outside the window for REM. We will continue to follow. Prognosis is guarded. No additi onal recommendations are made. Time with Patient: Less than 30
--- NOTE | 2021-02-27 16:41 | P.PN ---
Subjective Progress Note Date: 02/27/21 Osmar Drummond, is a 35-year-old male patient of Dr. Hdz, who presented to [facility] emergency room with a chief complaint of worsening shortness of breath and chest tightness. Patient was also having persistent cough his symptoms started 12 days ago however he had severe worsening of his symptoms in the last 3 days. He stated that last Saturday he was tested for COVID-19, results came back positive on Saturday. He was evaluated in the emergency room vital examination on presentation revealed a temperature of 103 pulse 92 respiration 18 blood pressure 124/77 pulse ox 92% on room air. White blood count was 4.2 hemoglobin 15.4 platelet count 161 sodium 125 potassium 3.9 chloride 88 calcium 7.8 BUN 8 creatinine 0.94 AST 98 ALT 57 LDH 1623 C-reactive protein 41.1 EKG done in the emergency room revealed normal sinus rhythm normal EKG, chest x-ray done in the emergency room revealed patchy bilateral infiltrates compatible with multifocal pneumonia no pneumothorax. Patient was admitted to medical floor pulmonary consultation was requested. On 02/25/2021 patient was seen and examined on the medical floor he is alert and oriented 3 in no distress, he is still complaining of cough and shortness of breath otherwise he denies any complaints there is no fever or chills no hea dache or dizziness no chest pain no nausea or vomiting no abdominal pain no diarrhea no blood in the stools no burning was urination no frequency or urgency and no hematuria. On 02/26/2021 patient was seen and examined on the medical floor he is alert and oriented 3 in no distress he seems to be worse today he is having more tachycardia and tachypnea, his temperature is 99.8 pulse ox is down to 82% on 15 L high flow cannula inflammatory markers are up his LDH is 1735 up from 1440 yesterday C-reactive protein is up to 7.2 up from 6 yesterday d-dimer is up to 1.21 up from 0.77 yesterday, at this time patient is maintained on inhaled bronchodilators, IV Decadron, subcu Lovenox,, repeat chest x-ray done today reveals by basilar infiltrates and opacities consistent with COVID-19 infection without any significant change from previous x-ray on 02/27/2021 patient was seen and examined on the medical floor, he is alert and oriented 3 in no apparent distress he is reporting some improvement in his shortness of breath, vital exam reveals a temperature of 99.1 pulse 102 respiration 20 blood pressure 121/84 pulse ox 87% on 15 L high flow cannula, white blood count is 6.2 hemoglobin 13.8 platelet count 262 d-dimer 1.51 sodium 127 potassium 4.0 chloride 94 CO2 25 BUN 13 creatinine 0.81 LDH 1969 C-reactive protein up to 8.9, patient is complaining of cough and shortness of breath otherwise he denies any complaints there is no fever or chills no headache or dizziness no chest pain no nausea or vomiting no abdominal pain no diarrhea no blood in the stools no burning with urination no frequency or urgency and no hematuria Objective - Vital Signs Vital signs: Vital Signs Temp 99.1 F 02/27/21 08:35 Pulse 100 02/27/21 08:35 Resp 20 02/27/21 08:35 BP 121/84 02/27/21 08:35 Pulse Ox 87 L 02/27/21 08:35 Intake & Output 02/26/21 02/27/21 02/27/21 18:59 06:59 18:59 Intake Total 600 Output Total 1300 500 Balance -1300 100 Intake: Intake, IV Titration 600 Amount Sodium Chloride 0.9% 1, 600 000 ml @ 75 mls/hr IV . [id number] [facility] Rx#:[id number] Output: Urine 1300 500 Other: Voiding Method Urinal Urinal # Voids 1 # Bowel Movements 1 1 - Exam In general patient is alert and oriented 3 in no apparent distress HEENT head normocephalic and atraumatic Neck is supple no JVD no goiter no lymphadenopathy Chest exam reveals a few scattered crackles no wheezing Cardiac exam reveals regular heart sounds no gallops no murmurs Abdomen is soft nontender no organomegaly with normal bowel sounds Extremity exam reveals no edema no cyanosis or clubbing Neurological examination reveals no gross focal deficit - Labs CBC & Chem 7: 02/27/21 07:48 02/27/21 07:48 Labs: Abnormal Lab Results - Last 24 Hours (Table) 02/26/21 02/26/21 02/26/21 Range/Units 10:58 10:58 10:58 Lymphocytes # 0.5 L (1.0-4.8) k/uL D-Dimer 1.21 H (<0.60) mg/L FEU Sodium 126 L (137-145) mmol/L Chloride 93 L (98-107) mmol/L Glucose 113 H (74-99) mg/dL Calcium 8.0 L (8.4-10.2) mg/dL AST 76 H (17-59) U/L Lactate Dehydrogenase 1735 H (313-618) U/L C-Reactive Protein 7.2 H (<1.0) mg/dL Total Protein 6.2 L (6.3-8.2) g/dL Albumin 3.3 L (3.5-5.0) g/dL 02/27/21 02/27/21 02/27/21 Range/Units 07:48 07:48 07:48 Lymphocytes # 0.6 L (1.0-4.8) k/uL D-Dimer 1.51 H (<0.60) mg/L FEU Sodium 127 L (137-145) mmol/L Chloride 94 L (98-107) mmol/L Glucose 106 H (74-99) mg/dL Calcium 7.8 L (8.4-10.2) mg/dL AST 69 H (17-59) U/L Lactate Dehydrogenase 1969 H (313-618) U/L C-Reactive Protein 8.9 H (<1.0) mg/dL Total Protein 5.9 L (6.3-8.2) g/dL Albumin 3.1 L (3.5-5.0) g/dL Assessment and Plan Plan: 1. Acute COVID-19 pneumonia patient started on IV Decadron and subcu Lovenox pulmonary consultation was requested 2. Underlying history of asthma 3. Underlying history of morbid obesity 4. Hyponatremia, patient started on IV normal months leading 5. Elevated liver enzymes, will monitor closely At this time patient was seen and examined in the emergency room he was started on subcu Lovenox and IV dexamethasone, vitamin C and vitamin D and zinc supplements he was also started on inhaled bronchodilators patient will be admitted to medical floor pulmonary consultation was requested. Patient was seen by pulmonary he is maintained on oxygen supplements, IV Decadron, subcu Lovenox, patient has improved since yesterday
[2021-02-28] MEDS: CHOLECALCIFEROL 25 MCG (1000 IU) TABLET PO SCH (07:16)
[2021-02-28] MEDS: ZINC SULFATE 220 MG CAP PO SCH (07:16)
[2021-02-28] MEDS: ASCORBIC ACID 500 MG TAB PO SCH ×2 (07:17→20:50)
[2021-02-28] MEDS: SODIUM CHLORIDE 0.9% 1,000 ML IV SCH (07:17)
[2021-02-28] MEDS: DEXAMETHASONE SOD PHOSPHATE 10 MG/ML 1 ML VIAL IV SCH (07:17)
[2021-02-28] MEDS: ENOXAPARIN 40 MG/0.4 ML SYRINGE SQ SCH (07:18)
[2021-02-28] MEDS: ALBUTEROL HFA INHALER INHALATION SCH ×4 (08:19→20:28)
[2021-02-28] MEDS: ALPRAZolam 0.5 MG TAB PO PRN ×2 (08:22→16:54)
--- NOTE | 2021-02-28 13:01 | P.PN ---
Subjective Progress Note Date: 02/28/21 Principal diagnosis: Shortness of breath. Progress note dated 02/27/2021. 35-year-old male admitted with a diagnosis of acute hypoxemic respiratory failure secondary to COVID 19 pneumonia. Chest x-ray showed multifocal bilateral infiltrates. In addition, the patient is morbidly obese, likely has sleep apnea syndrome, has lymphopenia, hyponatremia, and elevated liver function tests, all secondary to COVID 19. Currently, the patient's on saline at 75 mL an hour, and high flow nasal O2 at 15 L/m. White count 6.2, hemoglobin 13.8, hematocrit 39.0, and platelet count 262,000. D-dimer is 1.51. Sodium 127, potassium 4, chlorides 94, CO2 25, anion gap 8, BUN 13, creatinine 0.81. LDH is 1969, and C-reactive protein is 8.9. Chest x-ray shows bilateral infiltrates. Progress note dated 02/28/2021. 35-year-old male with a diagnosis of acute hypoxemic respiratory failure secondary to COVID 19 pneumonia. Chest x-ray showed multifocal bilateral infiltrates. The patient also has obesity, sleep apnea syndrome, lymphopenia, hyponatremic, and liver function abnormalities, all consistent with coronavirus infection. Yesterday, the patient was on high flow nasal O2, and nonrebreather mask. This morning, the respiratory therapist switch him over to AIRVO, at 60 L/m and 90% FiO2. The patient is not receiving any IV fluids. D-dimer is 4.62. Objective - Vital Signs Vital signs: Vital Signs Temp 98.7 F 02/28/21 07:18 Pulse 114 H 02/28/21 10:10 Resp 26 H 02/28/21 10:10 BP 178/101 02/28/21 07:18 Pulse Ox 93 L 02/28/21 11:23 Intake & Output 02/27/21 02/28/21 02/28/21 18:59 06:59 18:59 Other: Voiding Method Urinal Urinal # Voids 0 - Exam No acute distress, oriented 3. Currently on AIRVO, at 60 L/m, and 90%. Saturations are 93%. HEENT examination is grossly unremarkable. Neck supple. Full range of motion. No adenopathy thyromegaly or neck vein distention. Cardiovascular examination reveals regular rhythm rate. S1-S2 normal. No S3 or S4. No discernible murmur noted. Heart sounds are distant. Heart rate is 114 bpm. Lungs reveal diffuse bilateral rhonchi. No wheezes. Breath sounds equal bilaterally. Some bibasilar crackles are noted. Abdomen soft bowel sounds are heard. No masses or tenderness. Extremities are intact. No cyanosis clubbing or edema. Skin is without rash or lesion. Neurologic examination is brief but nonfocal. - Labs CBC & Chem 7: 02/27/21 07:48 02/27/21 07:48 Labs: Abnormal Lab Results - Last 24 Hours (Table) 02/28/21 Range/Units 08:26 D-Dimer 4.62 H (<0.60) mg/L FEU Assessment and Plan Assessment: Acute hypoxemic respiratory failure, secondary to COVID 19 pneumonia/pneumonitis. Morbid obesity. Possible sleep apnea syndrome. Lymphopenia. Elevated liver function tests, secondary to coronavirus infection. Hyponatremia, improved. Plan: Plan dated 02/27/2021. The patient remains on saline 75 mL an hour, and nasal O2, high flow, and 15 L/m. The patient remains on Decadron and Lovenox. The patient was outside the window for REM. We will continue to follow. Prognosis is guarded. No additional recommendations are made. Plan dated 02/28/2021. The patient was placed on AIRVO. He seems to be more comfortable on this modality of providing him oxygen therapy. The patient is not receiving any IV fluids. Currently his medications appear to be appropriate including albuterol inhaler, vitamin C, vitamin D3, Decadron, Lovenox, and zinc. Additional recommendations and suggestions are forthcoming. We will continue to follow. The patient was outside the window for REM. Time with Patient: Less than 30
--- NOTE | 2021-02-28 17:46 | P.PN ---
Subjective Progress Note Date: 02/28/21 Osmar Drummond, is a 35-year-old male patient of Dr. Hdz, who presented to [facility] emergency room with a chief complaint of worsening shortness of breath and chest tightness. Patient was also having persistent cough his symptoms started 12 days ago however he had severe worsening of his symptoms in the last 3 days. He stated that last Saturday he was tested for COVID-19, results came back positive on Saturday. He was evaluated in the emergency room vital examination on presentation revealed a temperature of 103 pulse 92 respiration 18 blood pressure 124/77 pulse ox 92% on room air. White blood count was 4.2 hemoglobin 15.4 platelet count 161 sodium 125 potassium 3.9 chloride 88 calcium 7.8 BUN 8 creatinine 0.94 AST 98 ALT 57 LDH 1623 C-reactive protein 41.1 EKG done in the emergency room revealed normal sinus rhythm normal EKG, chest x-ray done in the emergency room revealed patchy bilateral infiltrates compatible with multifocal pneumonia no pneumothorax. Patient was admitted to medical floor pulmonary consultation was requested. On 02/25/2021 patient was seen and examined on the medical floor he is alert and oriented 3 in no distress, he is still complaining of cough and shortness of breath otherwise he denies any complaints there is no fever or chills no hea dache or dizziness no chest pain no nausea or vomiting no abdominal pain no diarrhea no blood in the stools no burning was urination no frequency or urgency and no hematuria. On 02/26/2021 patient was seen and examined on the medical floor he is alert and oriented 3 in no distress he seems to be worse today he is having more tachycardia and tachypnea, his temperature is 99.8 pulse ox is down to 82% on 15 L high flow cannula inflammatory markers are up his LDH is 1735 up from 1440 yesterday C-reactive protein is up to 7.2 up from 6 yesterday d-dimer is up to 1.21 up from 0.77 yesterday, at this time patient is maintained on inhaled bronchodilators, IV Decadron, subcu Lovenox,, repeat chest x-ray done today reveals by basilar infiltrates and opacities consistent with COVID-19 infection without any significant change from previous x-ray on 02/27/2021 patient was seen and examined on the medical floor, he is alert and oriented 3 in no apparent distress he is reporting some improvement in his shortness of breath, vital exam reveals a temperature of 99.1 pulse 102 respiration 20 blood pressure 121/84 pulse ox 87% on 15 L high flow cannula, white blood count is 6.2 hemoglobin 13.8 platelet count 262 d-dimer 1.51 sodium 127 potassium 4.0 chloride 94 CO2 25 BUN 13 creatinine 0.81 LDH 1969 C-reactive protein up to 8.9, patient is complaining of cough and shortness of breath otherwise he denies any complaints there is no fever or chills no headache or dizziness no chest pain no nausea or vomiting no abdominal pain no diarrhea no blood in the stools no burning with urination no frequency or urgency and no hematuria On 02/28/2021 patient was seen and examined on the medical floor he is alert and oriented 3 in no apparent distress, he is still maintained on Airvo with FiO2 of 90% his temperature is 98.7 pulse 116 respiration 28 blood pressure 145/81 pulse ox 93% he is complaining of shortness of breath and occasional cough otherwise he denies any complaints there is no fever or chills no headache or dizziness no chest pain no nausea or vomiting no abdominal pain no diarrhea no blood in the stools no burning with urination no frequency or urgency and no hematuria Objective - Vital Signs Vital signs: Vital Signs Temp 97.3 F L 02/28/21 15:23 Pulse 99 02/28/21 16:28 Resp 20 02/28/21 16:28 BP 131/89 02/28/21 15:23 Pulse Ox 96 02/28/21 16:28 Intake & Output 02/27/21 02/28/21 02/28/21 18:59 06:59 18:59 Intake Total 330 Balance 330 Intake: Oral 330 Other: Voiding Method Urinal Urinal # Voids 0 - Exam In general patient is alert and oriented 3 in no apparent distress HEENT head normocephalic and atraumatic Neck is supple no JVD no goiter no lymphadenopathy Chest exam reveals a few scattered crackles no wheezing Cardiac exam reveals regular heart sounds no gallops no murmurs Abdomen is soft nontender no organomegaly with normal bowel sounds Extremity exam reveals no edema no cyanosis or clubbing Neurological examination reveals no gross focal deficit - Labs CBC & Chem 7: 02/27/21 07:48 02/27/21 07:48 Labs: Abnormal Lab Results - Last 24 Hours (Table) 02/28/21 Range/Units 08:26 D-Dimer 4.62 H (<0.60) mg/L FEU Assessment and Plan Plan: 1. Acute COVID-19 pneumonia patient started on IV Decadron and subcu Lovenox pulmonary consultation was requested 2. Underlying history of asthma 3. Underlying history of morbid obesity 4. Hyponatremia, patient started on IV normal months leading 5. Elevated liver enzymes, will monitor closely At this time patient was seen and examined in the emergency room he was started on subcu Lovenox and IV dexamethasone, vitamin C and vitamin D and zinc supplements he was also started on inhaled bronchodilators patient will be a dmitted to medical floor pulmonary consultation was requested. Patient was seen by pulmonary he is maintained on oxygen supplements, IV Decadron, subcu Lovenox, patient has improved since yesterday
[2021-03-01] MEDS: SODIUM CHLORIDE 0.9% 1,000 ML IV SCH ×2 (06:18→08:30)
[2021-03-01] MEDS: ALBUTEROL HFA INHALER INHALATION SCH ×4 (07:01→21:37)
[2021-03-01] MEDS ORDERED: MORPHINE SULFATE 4 MG/ML SYRINGE IVP STA (07:06)
[2021-03-01] MEDS ORDERED: MORPHINE SULFATE 4 MG/ML SYRINGE IVP PRN (07:08)
[2021-03-01] MEDS ORDERED: MORPHINE SULFATE 4 MG/ML SYRINGE ONE (07:09)
--- NOTE | 2021-03-01 07:52 | XR ---
EXAMINATION TYPE: XR chest 1V portable DATE OF EXAM: 03/01/2021 CLINICAL HISTORY: Difficulty breathing and covid progress study. TECHNIQUE: Single AP portable upright view of the chest is obtained. COMPARISON: Chest x-ray from 2 days earlier and older studies FINDINGS: Persistent low lung volumes with mid to lower lung multifocal and confluent opacities bila terally redemonstrated. Stable cardiomegaly. Osseous structures remain intact. IMPRESSION: Low lung volumes and cardiomegaly with persistent bilateral mid to lower lungs multifocal and confluent opacities consistent with covid-19 infection, no significant change from most recent x -ray.
[2021-03-01] MEDS: ENOXAPARIN 60 MG/0.6 ML SYRINGE SQ SCH ×2 (08:11→20:38)
[2021-03-01] MEDS: ZINC SULFATE 220 MG CAP PO SCH ×2 (08:13→08:31)
[2021-03-01] MEDS: CHOLECALCIFEROL 25 MCG (1000 IU) TABLET PO SCH ×2 (08:14→08:31)
[2021-03-01] MEDS: ASCORBIC ACID 500 MG TAB PO SCH ×3 (08:14→20:38)
[2021-03-01] MEDS: DEXAMETHASONE SOD PHOSPHATE 10 MG/ML 1 ML VIAL IV SCH ×2 (08:14→20:38)
[2021-03-01] MEDS ORDERED: TOCILIZUMAB 800 MG in SODIUM CHLORIDE 0.9% 60 ML IV ONE (08:15)
[2021-03-01 08:16] LABS: Basophils # (A) 0.1 k/uL (0-0.2); Basophils % (A) 1 %; Eosinophils % (A) 0 %; HGB 15.5 gm/dL (13.0-17.5); Lymphocytes # (A) 1.2 k/uL (1.0-4.8); Lymphocytes % (A) 6 %; MCH 29.7 pg (25.0-35.0); MCHC 34.4 g/dL (31.0-37.0); MCV 86.2 fL (80.0-100.0); Mean Platelet Volume 8.7; Monocytes # (A) 0.9 k/uL (0-1.0); Monocytes % (A) 4 %; Neutrophils # (A) 17.4 k/uL (1.3-7.7); Neutrophils % (A) 87 %; Platelet Count 515 k/uL (150-450); RBC 5.22 m/uL (4.30-5.90); RDW 13.2 % (11.5-15.5); WBC 19.9 k/uL (3.8-10.6)
[2021-03-01 08:19] LABS: ALT 38 U/L (4-49); AST 48 U/L (17-59); African American GFR (CKD) >90 (>60 ml/min/1.73 sqM); Albumin 3.4 g/dL (3.5-5.0); Alkaline Phosphatase 65 U/L (38-126); Anion Gap 10 mmol/L; Blood Urea Nitrogen 23 mg/dL (9-20); C Reactive Protein 4.5 mg/dL (<1.0); Calcium 8.2 mg/dL (8.4-10.2); Carbon Dioxide 22 mmol/L (22-30); Chloride 95 mmol/L (98-107); Glucose 149 mg/dL (74-99); LDH 2035 U/L (313-618); Non-African American GFR(CKD) >90 (>60 ml/min/1.73 sqM); Sodium 127 mmol/L (137-145); Total Protein 6.5 g/dL (6.3-8.2)
[2021-03-01 08:29] LABS: ABG Base Excess -4.4 mmol/L; ABG HCO3 23 mmol/L (21-25); ABG Oxygen Saturation 91.5 % (94-97); ABG PCO2 55 mmHg (35-45); ABG PH 7.24 (7.35-7.45); ABG PO2 78 mmHg (83-108); ABG TCO2 25 mmol/L (19-24); Allen Test Performed? Yes
[2021-03-01] MEDS: ALPRAZolam 0.5 MG TAB PO PRN (08:32)
[2021-03-01 11:09] LABS: Glucose,Whole Blood 147 mg/dL (75-99)
[2021-03-01] MEDS ORDERED: propofoL 100 ML IV ONE (11:09)
--- NOTE | 2021-03-01 11:28 | P.PN ---
Subjective Progress Note Date: 03/01/21 Principal diagnosis: Acute hypoxic respiratory failure secondary to COVID-19 pneumonia. 35-year-old male admitted with a diagnosis of acute hypoxemic respiratory failure secondary to COVID 19 pneumonia. Chest x-ray showed multifocal bilateral infiltrates. In addition, the patient is morbidly obese, likely has sleep apnea syndrome, has lymphopenia, hyponatremia, and elevated liver function tests, all secondary to COVID 19. Currently, the patient's on saline at 75 mL an hour, and high flow nasal O2 at 15 L/m. White count 6.2, hemoglobin 13.8, hematocrit 39.0, and platelet count 262,000. D-dimer is 1.51. Sodium 127, potassium 4, chlorides 94, CO2 25, anion gap 8, BUN 13, creatinine 0.81. LDH is 1969, and C-reactive protein is 8.9. Chest x-ray shows bilateral infiltrates. Progress note dated 02/28/2021. 35-year-old male with a diagnosis of acute hypoxemic respiratory failure secondary to COVID 19 pneumonia. Chest x-ray showed multifocal bilateral infiltrates. The patient also has obesity, sleep apnea syndrome, lymphopenia, hyponatremic, and liver function abnormalities, all consistent with coronavirus infection. Yesterday, the patient was on high flow nasal O2, and nonrebreather mask. This morning, the respiratory therapist switch him over to AIRVO, at 60 L/m and 90% FiO2. The patient is not receiving any IV fluids. D-dimer is 4.62. Patient was reevaluated today on 03/01/2021, patient remains on selective, however I was called to see the patient. He seems to be in severe respiratory distress. Patient is on BiPAP, his respiratory rate is 16 times per minute, patient is anxious, and his O2 saturation is 92%. Clearly the patient is in severe respiratory distress, chest x-ray showed bilateral patchy infiltrates, and a dilated stomach, and some dilated bowel loops. Could not place a nasogastric tube because the patient was on BiPAP, and noted to be desaturating easily. As soon as I evaluated the patient, I recommended immediate transfer to the ICU, intubation mechanical ventilation. Patient will be placed on tidal volume is 400, assist control rate of 30, 100% FiO2, and PEEP of 10. Follow-up chest x-ray will be done post intubation, and a nasogastric tube will also be placed as soon as the patient is intubated. We are in the process of transferring the patient now to the ICU for intubation mechanical ventilation, as his pulmonary status seems to be deteriorating quite fast. ABG from earlier today showed a pO2 of 78 pCO2 of 55 pH of 7.24, and this was on BiPAP 100% FiO2. This ABG was done at 8:15 AM. Inflammatory markers noted to be on the rise, LDH is 2035, and C-reactive protein is 4.5. The CBC count is 19.9 hemoglobin is 15.5. D-dimer is 4.62. Sodium is low at 127 potassium is 5.0. Renal profile is normal. Objective - Vital Signs Vital signs: Vital Signs Temp 98.7 F 03/01/21 08:34 Pulse 136 H 03/01/21 08:34 Resp 60 H 03/01/21 08:34 BP 131/91 03/01/21 08:34 Pulse Ox 92 L 03/01/21 08:34 Intake & Output 02/28/21 03/01/21 03/01/21 18:59 06:59 18:59 Intake Total 330 Balance 330 Weight 129.274 kg Intake: Oral 330 Other: Voiding Method Urinal Incontinent # Voids 400 - Exam Physical Exam: Revealed 55-year-old white male anxious, in severe respiratory distress. Tachypneic tachycardic and anxious. Head: Atraumatic, normocephalic. HEENT:[Neck is supple.] [No neck masses.] [No thyromegaly.] [No JVD.] Dry mucous membranes noted. Chest: [Cold and rhonchi noted bilaterally. Symmetrical chest expansion. Cardiac Exam: [Normal S1 and S2, no S3 gallop, no murmur.] Abdomen: Slightly distended, , nontender, no megaly, no rebound, no guarding, diminished bowel sounds. Extremities: [No clubbing, no edema, no cyanosis.] Neurological Exam: [No focal neurologic deficit.] Alert oriented 3. Psychiatric: Anxious mood, lung affect, normal mental status examination. Skin: Multiple tattoos all over, otherwise unremarkable. Lymphatics: No lymphadenopathy. - Labs CBC & Chem 7: 03/01/21 07:40 03/01/21 07:40 Labs: Abnormal Lab Results - Last 24 Hours (Table) 03/01/21 03/01/21 03/01/21 Range/Units 07:40 07:40 08:18 WBC 19.9 H (3.8-10.6) k/uL Plt Count 515 H (150-450) k/uL Neutrophils # 17.4 H (1.3-7.7) k/uL ABG pH 7.24 L (7.35-7.45) ABG pCO2 55 H (35-45) mmHg ABG pO2 78 L (83-108) mmHg ABG Total CO2 25 H (19-24) mmol/L ABG O2 Saturation 91.5 L (94-97) % Sodium 127 L (137-145) mmol/L Chloride 95 L (98-107) mmol/L BUN 23 H (9-20) mg/dL Glucose 149 H (74-99) mg/dL POC Glucose (mg/dL) (75-99) mg/dL Calcium 8.2 L (8.4-10.2) mg/dL Lactate Dehydrogenase 2035 H (313-618) U/L C-Reactive Protein 4.5 H (<1.0) mg/dL Albumin 3.4 L (3.5-5.0) g/dL 03/01/21 Range/Units 11:08 WBC (3.8-10.6) k/uL Plt Count (150-450) k/uL Neutrophils # (1.3-7.7) k/uL ABG pH (7.35-7.45) ABG pCO2 (35-45) mmHg ABG pO2 (83-108) mmHg ABG Total CO2 (19-24) mmol/L ABG O2 Saturation (94-97) % Sodium (137-145) mmol/L Chloride (98-107) mmol/L BUN (9-20) mg/dL Glucose (74-99) mg/dL POC Glucose (mg/dL) 147 H (75-99) mg/dL Calcium (8.4-10.2) mg/dL Lactate Dehydrogenase (313-618) U/L C-Reactive Protein (<1.0) mg/dL Albumin (3.5-5.0) g/dL Assessment and Plan Assessment: Impression: Acute hypoxic respiratory failure secondary to COVID-19 pneumonia, requiring intubation mechanical ventilation. Suspect ileus and dilated bowel loops as well as dilated stomach patient will require a nasogastric tube placement. Elevated inflammatory markers secondary to above. Lymphopenia secondary to above. Elevated liver enzymes secondary to above. 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 Recommendation: Immediate transfer to the ICU. Immediate intubation mechanical ventilation. Nasogastric tube placement to decompress his stomach and placed on low suction. Continue Decadron and Lovenox. Patient is out of the window for REM. Continue COVID-19 cocktail including Lovenox and zinc vitamin D and Decadron. Continue albuterol and vitamin C. toci was ordered and to be given today. Prognosis is guarded, We'll continue to follow. Critical care time is over 30 minutes. Time with Patient: Greater than 30
[2021-03-01] MEDS ORDERED: IPRATROPIUM-ALBUTEROL 3 ML NEB INHALATION PRN (11:33)
[2021-03-01] MEDS ORDERED: CISATRACURIUM 2 MG/ML 5 ML VIAL IV ONE (11:46)
[2021-03-01] MEDS ORDERED: IPRATROPIUM-ALBUTEROL 3 ML NEB INHALATION SCH (12:00)
[2021-03-01] MEDS: CISATRACURIUM 200 MG in SODIUM CHLORIDE 0.9% 180 ML IV SCH ×2 (12:07→23:54)
[2021-03-01] MEDS: CISATRACURIUM 2 MG/ML 5 ML VIAL IV ONE (12:25)
--- NOTE | 2021-03-01 12:32 | XR ---
EXAMINATION TYPE: XR chest 1V portable DATE OF EXAM: 03/01/2021 COMPARISON: 03/01/2021 HISTORY: SOB, Follow Up FINDINGS: Endotracheal tube is well-positioned. The NG tube is seen coiled within the stomach. Diminished lung volumes. Bilateral airspace infiltrates persist. Stable appearance of the cardio-mediastinal structures at this time. IMPRESSION: 1. Stable portable chest. Indwelling tubes and catheters as noted. Clinical correlation and follow up until resolution is recommended.
[2021-03-01 12:51] LABS: ABG Base Excess -2.3 mmol/L; ABG HCO3 25 mmol/L (21-25); ABG Oxygen Saturation 87.2 % (94-97); ABG PCO2 60 mmHg (35-45); ABG PH 7.23 (7.35-7.45); ABG PO2 66 mmHg (83-108); ABG TCO2 27 mmol/L (19-24)
[2021-03-01 12:52] LABS: Allen Test Performed? yes
[2021-03-01] MEDS ORDERED: LIDOCAINE 1% INJ 10MG/ML (20 ML MDV) SQ ONE (15:31)
--- NOTE | 2021-03-01 15:53 | XR ---
EXAMINATION TYPE: XR chest 1V confirm line [facility] DATE OF EXAM: 03/01/2021 COMPARISON: Prior chest x-ray 03/01/2021 HISTORY: Status post PICC line placement TECHNIQUE: Single frontal view of the chest is obtained. FINDINGS: Right-sided PICC line is been placed in the interval, distal tip is in the right atrium. N o other interval change. IMPRESSION: No evident complication status post PICC line placement
--- NOTE | 2021-03-01 16:16 | IR ---
EXAMINATION TYPE: IR cvc insert >=5 years DATE OF EXAM: 03/01/2021 COMPARISON: NONE HISTORY: Needs long-term intravenous access for therapy, Covid infection FINDINGS: Maximal barrier technique was utilized. Hand hygiene obtained with soap and water and alco hol-based hand rub. The skin overlying the left basilic vein was localized with ultrasound and noted to be compressible and patent by ultrasound. An ultrasound image [facility] Sterile technique utilized with the ultrasound machine. The skin overlying was prepped an d draped and Lidocaine used for local anesthesia. A skin benito was made with a scalpel. Access was g ained to the vein under direct ultrasound guidance with a 21-gauge needle and a 0.018 inch wire was a dvanced. Access site was dilated with a peel-away sheath and the catheter tailored to length. Kim ter advanced centrally and a post procedure chest x-ray verified placement with tip at the right atri um, catheter was withdrawn 2 cm. Catheter was fixed to the skin and a sterile dressing placed. Hemo stasis achieved and the catheter was aspirated and flushed with sterile saline. The patient remained in stable condition. IMPRESSION: STATUS POST ULTRASOUND GUIDED PICC LINE PLACEMENT, READY FOR USE. THIS PROCEDURE WAS PER FORMED BY THE UNDERSIGNED.
[2021-03-01 18:04] LABS: Glucose,Whole Blood 137 mg/dL (75-99)
--- NOTE | 2021-03-01 18:45 | P.PN ---
Subjective Progress Note Date: 03/01/21 Osmar Drummond, is a 35-year-old male patient of Dr. Hdz, who presented to [facility] emergency room with a chief complaint of worsening shortness of breath and chest tightness. Patient was also having persistent cough his symptoms started 12 days ago however he had severe worsening of his symptoms in the last 3 days. He stated that last Saturday he was tested for COVID-19, results came back positive on Saturday. He was evaluated in the emergency room vital examination on presentation revealed a temperature of 103 pulse 92 respiration 18 blood pressure 124/77 pulse ox 92% on room air. White blood count was 4.2 hemoglobin 15.4 platelet count 161 sodium 125 potassium 3.9 chloride 88 calcium 7.8 BUN 8 creatinine 0.94 AST 98 ALT 57 LDH 1623 C-reactive protein 41.1 EKG done in the emergency room revealed normal sinus rhythm normal EKG, chest x-ray done in the emergency room revealed patchy bilateral infiltrates compatible with multifocal pneumonia no pneumothorax. Patient was admitted to medical floor pulmonary consultation was requested. On 02/25/2021 patient was seen and examined on the medical floor he is alert and oriented 3 in no distress, he is still complaining of cough and shortness of breath otherwise he denies any complaints there is no fever or chills no hea dache or dizziness no chest pain no nausea or vomiting no abdominal pain no diarrhea no blood in the stools no burning was urination no frequency or urgency and no hematuria. On 02/26/2021 patient was seen and examined on the medical floor he is alert and oriented 3 in no distress he seems to be worse today he is having more tachycardia and tachypnea, his temperature is 99.8 pulse ox is down to 82% on 15 L high flow cannula inflammatory markers are up his LDH is 1735 up from 1440 yesterday C-reactive protein is up to 7.2 up from 6 yesterday d-dimer is up to 1.21 up from 0.77 yesterday, at this time patient is maintained on inhaled bronchodilators, IV Decadron, subcu Lovenox,, repeat chest x-ray done today reveals by basilar infiltrates and opacities consistent with COVID-19 infection without any significant change from previous x-ray on 02/27/2021 patient was seen and examined on the medical floor, he is alert and oriented 3 in no apparent distress he is reporting some improvement in his shortness of breath, vital exam reveals a temperature of 99.1 pulse 102 respiration 20 blood pressure 121/84 pulse ox 87% on 15 L high flow cannula, white blood count is 6.2 hemoglobin 13.8 platelet count 262 d-dimer 1.51 sodium 127 potassium 4.0 chloride 94 CO2 25 BUN 13 creatinine 0.81 LDH 1969 C-reactive protein up to 8.9, patient is complaining of cough and shortness of breath otherwise he denies any complaints there is no fever or chills no headache or dizziness no chest pain no nausea or vomiting no abdominal pain no diarrhea no blood in the stools no burning with urination no frequency or urgency and no hematuria On 02/28/2021 patient was seen and examined on the medical floor he is alert and oriented 3 in no apparent distress, he is still maintained on Airvo with FiO2 of 90% his temperature is 98.7 pulse 116 respiration 28 blood pressure 145/81 pulse ox 93% he is complaining of shortness of breath and occasional cough otherwise he denies any complaints there is no fever or chills no headache or dizziness no chest pain no nausea or vomiting no abdominal pain no diarrhea no blood in the stools no burning with urination no frequency or urgency and no hematuria. On 03/01/2021 patient was seen and examined in the ICU he is intubated sedated maintained on mechanical ventilation air this morning patient was having worsening shortness of breath and decreased O2 sat duration despite Airvo, he was transferred to ICU and was intubated. Currently patient is on assist c ontrol tidal volume of 400 rate of 30 FiO2 100% and PEEP of 10 arterial blood gas reveals a pH of 7.24 pCO2 55 PO2 78 sodium is 127 LDH 2034 C-reactive protein 4.5 pulmonary are following closely Objective - Vital Signs Vital signs: Vital Signs Temp 99.3 F 03/01/21 14:40 Pulse 104 H 03/01/21 15:00 Resp 34 H 03/01/21 15:00 BP 117/75 03/01/21 15:00 Pulse Ox 88 L 03/01/21 15:00 Intake & Output 02/28/21 03/01/21 03/01/21 18:59 06:59 18:59 Intake Total 330 475 Output Total 700 Balance 330 -225 Weight 129.274 kg Intake: Intake, IV Titration 475 Amount Sodium Chloride 0.9% 1, 375 000 ml @ 75 mls/hr IV . [id number] TERI Rx#:[id number] propofoL 1,000 mg In 100 Empty Bag 1 bag @ Titrate IV .Q0M TERI Rx#: [id number] Oral 330 Output: Urine 700 Other: Voiding Method Urinal Indwelling Catheter # Voids 400 - Exam In general patient is intubated sedated maintained on mechanical ventilation HEENT head normocephalic and atraumatic Neck is supple no JVD no goiter no lymphadenopathy Chest exam reveals a few scattered crackles no wheezing Cardiac exam reveals regular heart sounds no gallops no murmurs Abdomen is soft nontender no organomegaly with normal bowel sounds Extremity exam reveals no edema no cyanosis or clubbing Neurological examination reveals no gross focal deficit - Labs CBC & Chem 7: 03/01/21 07:40 03/01/21 07:40 Labs: Abnormal Lab Results - Last 24 Hours (Table) 03/01/21 03/01/21 03/01/21 Range/Units 07:40 07:40 08:18 WBC 19.9 H (3.8-10.6) k/uL Plt Count 515 H (150-450) k/uL Neutrophils # 17.4 H (1.3-7.7) k/uL ABG pH 7.24 L (7.35-7.45) ABG pCO2 55 H (35-45) mmHg ABG pO2 78 L (83-108) mmHg ABG Total CO2 25 H (19-24) mmol/L ABG O2 Saturation 91.5 L (94-97) % Sodium 127 L (137-145) mmol/L Chloride 95 L (98-107) mmol/L BUN 23 H (9-20) mg/dL Glucose 149 H (74-99) mg/dL POC Glucose (mg/dL) (75-99) mg/dL Calcium 8.2 L (8.4-10.2) mg/dL Lactate Dehydrogenase 2035 H (313-618) U/L C-Reactive Protein 4.5 H (<1.0) mg/dL Albumin 3.4 L (3.5-5.0) g/dL 03/01/21 03/01/21 Range/Units 11:08 12:48 WBC (3.8-10.6) k/uL Plt Count (150-450) k/uL Neutrophils # (1.3-7.7) k/uL ABG pH 7.23 L (7.35-7.45) ABG pCO2 60 H (35-45) mmHg ABG pO2 66 L (83-108) mmHg ABG Total CO2 27 H (19-24) mmol/L ABG O2 Saturation 87.2 L (94-97) % Sodium (137-145) mmol/L Chloride (98-107) mmol/L BUN (9-20) mg/dL Glucose (74-99) mg/dL POC Glucose (mg/dL) 147 H (75-99) mg/dL Calcium (8.4-10.2) mg/dL Lactate Dehydrogenase (313-618) U/L C-Reactive Protein (<1.0) mg/dL Albumin (3.5-5.0) g/dL Assessment and Plan Plan: 1. Acute COVID-19 pneumonia patient started on IV Decadron and subcu Lovenox pulmonary consultation was requested, patient developed acute hypoxic respiratory failure requiring intubation and mechanical ventilation 2. Underlying history of asthma 3. Underlying history of morbid obesity 4. Hyponatremia, patient started on IV normal months leading 5. Elevated liver enzymes, will monitor closely At this time patient was seen and examined in the emergency room he was started on subcu Lovenox and IV dexamethasone, vitamin C and vitamin D and zinc supplements he was also started on inhaled bronchodilators patient will be admitted to medical floor pulmonary consultation was requested. Patient was seen by pulmonary he is maintained on oxygen supplements, IV Decadron, subcu Lovenox, patient has improved since yesterday
[2021-03-01 19:49] LABS: ABG Base Excess 1.2 mmol/L; ABG HCO3 27 mmol/L (21-25); ABG Oxygen Saturation 87.6 % (94-97); ABG PCO2 52 mmHg (35-45); ABG PH 7.33 (7.35-7.45); ABG TCO2 29 mmol/L (19-24); Allen Test Performed? Yes
[2021-03-01 19:52] LABS: ABG PO2 59 mmHg (83-108)
[2021-03-01] MEDS: CHLORHEXIDINE GLUCONATE 15 ML CUP MUCOUS MEM SCH (20:38)
[2021-03-02 00:29] LABS: Glucose,Whole Blood 150 mg/dL (75-99)
[2021-03-02] MEDS: ACETAMINOPHEN TAB 325 MG TAB PO PRN (04:36)
[2021-03-02 05:04] LABS: HCT 39.7 % (39.0-53.0); HGB 13.7 gm/dL (13.0-17.5); MCH 30.1 pg (25.0-35.0); MCHC 34.5 g/dL (31.0-37.0); MCV 87.4 fL (80.0-100.0); Mean Platelet Volume 7.8; Platelet Count 338 k/uL (150-450); RBC 4.54 m/uL (4.30-5.90); RDW 13.2 % (11.5-15.5)
[2021-03-02] MEDS: SODIUM CHLORIDE 0.9% 1,000 ML IV SCH ×2 (05:15→16:31)
[2021-03-02 05:43] LABS: ALT 33 U/L (4-49); AST 33 U/L (17-59); African American GFR (CKD) >90 (>60 ml/min/1.73 sqM); Albumin 2.6 g/dL (3.5-5.0); Alkaline Phosphatase 52 U/L (38-126); Anion Gap 4 mmol/L; Blood Urea Nitrogen 14 mg/dL (9-20); C Reactive Protein 5.4 mg/dL (<1.0); Calcium 7.7 mg/dL (8.4-10.2); Carbon Dioxide 29 mmol/L (22-30); Chloride 98 mmol/L (98-107); Glucose 153 mg/dL (74-99); LDH 1221 U/L (313-618); Magnesium 2.7 mg/dL (1.6-2.3); Non-African American GFR(CKD) >90 (>60 ml/min/1.73 sqM); Sodium 131 mmol/L (137-145); Total Protein 5.2 g/dL (6.3-8.2)
[2021-03-02 05:46] LABS: Glucose,Whole Blood 155 mg/dL (75-99)
[2021-03-02 05:57] LABS: ABG Base Excess 3.4 mmol/L; ABG HCO3 30 mmol/L (21-25); ABG Oxygen Saturation 95.9 % (94-97); ABG PCO2 59 mmHg (35-45); ABG PH 7.31 (7.35-7.45); ABG PO2 87 mmHg (83-108); ABG TCO2 32 mmol/L (19-24); Allen Test Performed? Yes
[2021-03-02 07:12] LABS: Band Neutrophils % 13 %; Metamyelocytes # (M) 0.15 k/uL (0); Metamyelocytes % 1 %; Monocytes # (M) 0.45 k/uL (0-1.0); Neutrophils % (M) 82 %; Nucleated Red Blood Cells 0 /100 WBC (0-0); Total Cells Counted 200; Toxic Granulation Present
[2021-03-02] MEDS: ALBUTEROL HFA INHALER INHALATION SCH ×4 (07:36→19:25)
[2021-03-02 08:05] LABS: Glucose,Whole Blood 150 mg/dL (75-99)
--- NOTE | 2021-03-02 08:19 | XR ---
EXAMINATION TYPE: XR chest 1V portable DATE OF EXAM: 03/02/2021 COMPARISON: Chest x-ray 03/01/2021 HISTORY: Intubated TECHNIQUE: Single frontal view of the chest is obtained. FINDINGS: Endotracheal tube and orogastric tube are stable overlying appropriate positions. Patchy b ilateral airspace disease is again seen. Left-sided PICC line is present, distal tip is overlying the cavoatrial junction. There is no evident pneumothorax or pleural effusion. Cardiomediastinal silhoue tte is stable. There are overlying artifacts. IMPRESSION: Findings consistent with Covid pneumonia.
[2021-03-02] MEDS: PANTOPRAZOLE 40 MG/10 ML VIAL IV SCH (08:32)
[2021-03-02] MEDS: CHLORHEXIDINE GLUCONATE 15 ML CUP MUCOUS MEM SCH ×2 (08:32→20:36)
[2021-03-02] MEDS: DEXAMETHASONE SOD PHOSPHATE 10 MG/ML 1 ML VIAL IV SCH ×2 (08:32→20:36)
[2021-03-02] MEDS: ARTIFICIAL TEARS-HYPROMELLOSE DROPS 15 ML BTL BOTH EYES PRN ×2 (08:54→15:04)
[2021-03-02] MEDS: ZINC SULFATE 220 MG CAP PO SCH (09:23)
[2021-03-02] MEDS: ASCORBIC ACID 500 MG TAB PO SCH (09:23)
[2021-03-02] MEDS: CHOLECALCIFEROL 25 MCG (1000 IU) TABLET PO SCH (09:23)
[2021-03-02] MEDS ORDERED: ACETAMINOPHEN IV (For NPO) 1,000 MG in EMPTY BAG 1 BAG IVPB PRN (09:24)
[2021-03-02] MEDS: ENOXAPARIN 60 MG/0.6 ML SYRINGE SQ SCH ×2 (09:27→20:36)
[2021-03-02] MEDS: PIPERACILLIN-TAZOBACTAM 3.375 GM in SODIUM CHLORIDE 0.9% 100 ML IVPB SCH ×3 (09:27→23:30)
[2021-03-02] MEDS: fentaNYL (PF). 1,000 MCG in SODIUM CHLORIDE 0.9% 80 ML IV SCH ×2 (09:45→18:13)
--- NOTE | 2021-03-02 10:42 | PCN ---
PROCEDURE NOTE OPERATIVE REPORT: Placement of left radial arterial line. PREOPERATIVE DIAGNOSIS: Acute hypoxic respiratory failure and COVID-19 pneumonia. POSTOPERATIVE DIAGNOSIS: Acute hypoxic respiratory failure and COVID-19 pneumonia. ANESTHESIA USED: None deployed. DESCRIPTION OF PROCEDURE: The patient was placed in the supine position, the left wrist was prepared in a sterile fashion, drapes were applied. The left radial artery was palpated, cannulated. A guidewire was placed. A Cook catheter was inserted over the guidewire, and the guidewire was removed. Good blood flow, good waveform noted. No evidence of any complications. The line was secured using 3.0 silk sutures. MMODL / IJN: [id number] /
[2021-03-02] MEDS: CISATRACURIUM 200 MG in SODIUM CHLORIDE 0.9% 180 ML IV SCH (11:16)
[2021-03-02 11:37] LABS: Appearance,Urine Turbid (Clear); Bilirubin,Urine Negative (Negative); Blood,Urine Small (Negative); Color,Urine Yellow; Glucose,Urine (UA) Negative (Negative); Ketones,Urine Trace (Negative); Leukocyte Esterase,Urine Negative (Negative); Mucus,Urine Rare /hpf; Nitrite,Urine Negative (Negative); Protein,Urine Trace (Negative); RBC,Urine 148 /hpf (0-5); Specific Gravity,Urine 1.036 (1.001-1.035); WBC,Urine 8 /hpf (0-5)
[2021-03-02 11:50] LABS: Glucose,Whole Blood 150 mg/dL (75-99)
--- NOTE | 2021-03-02 11:57 | P.PN ---
Subjective Progress Note Date: 03/02/21 Principal diagnosis: Acute hypoxic respiratory failure secondary to COVID-19 pneumonia. 35-year-old male admitted with a diagnosis of acute hypoxemic respiratory failure secondary to COVID 19 pneumonia. Chest x-ray showed multifocal bilateral infiltrates. In addition, the patient is morbidly obese, likely has sleep apnea syndrome, has lymphopenia, hyponatremia, and elevated liver function tests, all secondary to COVID 19. Currently, the patient's on saline at 75 mL an hour, and high flow nasal O2 at 15 L/m. White count 6.2, hemoglobin 13.8, hematocrit 39.0, and platelet count 262,000. D-dimer is 1.51. Sodium 127, potassium 4, chlorides 94, CO2 25, anion gap 8, BUN 13, creatinine 0.81. LDH is 1969, and C-reactive protein is 8.9. Chest x-ray shows bilateral infiltrates. Progress note dated 02/28/2021. 35-year-old male with a diagnosis of acute hypoxemic respiratory failure secondary to COVID 19 pneumonia. Chest x-ray showed multifocal bilateral infiltrates. The patient also has obesity, sleep apnea syndrome, lymphopenia, hyponatremic, and liver function abnormalities, all consistent with coronavirus infection. Yesterday, the patient was on high flow nasal O2, and nonrebreather mask. This morning, the respiratory therapist switch him over to AIRVO, at 60 L/m and 90% FiO2. The patient is not receiving any IV fluids. D-dimer is 4.62. Patient was reevaluated today on 03/01/2021, patient remains on selective, however I was called to see the patient. He seems to be in severe respiratory distress. Patient is on BiPAP, his respiratory rate is 16 times per minute, patient is anxious, and his O2 saturation is 92%. Clearly the patient is in severe respiratory distress, chest x-ray showed bilateral patchy infiltrates, and a dilated stomach, and some dilated bowel loops. Could not place a nasogastric tube because the patient was on BiPAP, and noted to be desaturating easily. As soon as I evaluated the patient, I recommended immediate transfer to the ICU, intubation mechanical ventilation. Patient will be placed on tidal volume is 400, assist control rate of 30, 100% FiO2, and PEEP of 10. Follow-up chest x-ray will be done post intubation, and a nasogastric tube will also be placed as soon as the patient is intubated. We are in the process of transferring the patient now to the ICU for intubation mechanical ventilation, as his pulmonary status seems to be deteriorating quite fast. ABG from earlier today showed a pO2 of 78 pCO2 of 55 pH of 7.24, and this was on BiPAP 100% FiO2. This ABG was done at 8:15 AM. Inflammatory markers noted to be on the rise, LDH is 2035, and C-reactive protein is 4.5. The CBC count is 19.9 hemoglobin is 15.5. D-dimer is 4.62. Sodium is low at 127 potassium is 5.0. Renal profile is normal. Patient was reevaluated today on 03/02/2021, remains in the ICU, patient had to be intubated yesterday. His pulmonary status deteriorated in spite of being maximized on BiPAP. Hence I recommended intubation and mechanical ventilation. He is now on assist control rate of 3 to tidal volume is 420 FiO2 is 95% and PEEP of 16. ABG showed a pO2 of 87 pCO2 of 59 pH of 7.31. Peak airway pressure is 34, static pressure is 32. Patient is on propofol at 60 Nimbex at 1.5, I recommended adding fentany propofol and Nimbex. Patient was intubated on 03/01. He has a low-grade fever, I would place the patient empirically on Zosyn, patient will be pancultured today. Including blood cultures, sputum cultures, and urine cultures. We'll also order a pro calcitonin on this patient. D-dimer today is 1.81. Blood sugar is 150. WBC count is 15 hemoglobin is 13.7. LDH is coming down to 1221, and C-reactive protein is a bit elevated at 5.4. Chest x- ray continues to show bilateral patchy infiltrates, slightly improved, but that is mostly because of high PEEP Objective - Vital Signs Vital signs: Vital Signs Temp 100.6 F H 03/02/21 08:00 Pulse 104 H 03/02/21 11:00 Resp 32 H 03/02/21 11:00 BP 131/67 03/02/21 05:00 Pulse Ox 93 L 03/02/21 11:00 Intake & Output 03/01/21 03/02/21 03/02/21 18:59 06:59 18:59 Intake Total 800 1557.998 580.344 Output Total 1600 1750 210 Balance -800 -192.002 370.344 Weight 129.274 kg 129.6 kg Intake: IV 825 225 Sodium Chloride 0.9% 1, 825 225 000 ml @ 75 mls/hr IV . [id number] TERI Rx#:[id number] Intake, IV Titration 800 732.998 355.344 Amount Cisatracurium 200 mg In 265.014 70.586 Sodium Chloride 0.9% 180 ml @ 1 MCG/KG/MIN 7.756 mls/hr IV .Q24H TERI Rx#: [id number] Piperacillin-Tazobactam 3 100 .375 gm In Sodium Chloride 0.9% 100 ml @ 25 mls/hr IVPB Q8HR TERI Rx# :[id number] Sodium Chloride 0.9% 1, 600 000 ml @ 75 mls/hr IV . [id number] TERI Rx#:[id number] propofoL 1,000 mg In 200 467.984 184.758 Empty Bag 1 bag @ Titrate IV .Q0M TERI Rx#: [id number] Output: Gastric Drainage 500 Urine 1600 1250 210 Other: Voiding Method Indwelling Catheter Indwelling Catheter Indwelling Catheter # Bowel Movements 1 ABP, PAP, CO, CI - Last Documented Arterial Blood Pressure 113/71 - Exam Physical Exam: Revealed 55-year-old white male sedated, paralyzed, and mechanically ventilated.. Head: Atraumatic, normocephalic. Endotracheal tube and orogastric tube are intact. HEENT:[Neck is supple.] [No neck masses.] [No thyromegaly.] [No JVD.] Dry mucous membranes noted. Chest: [Symmetrical chest expansion, crackles on the rhonchi noted at the bases. Cardiac Exam: [Normal S1 and S2, no S3 gallop, no murmur.] Abdomen: Slightly distended, , nontender, no megaly, no rebound, no guarding, diminished bowel sounds. Extremities: [No clubbing, no edema, no cyanosis.] Neurological Exam: Could not assess, patient is sedated and paralyzed. Psychiatric: Could not assess.. Skin: Multiple tattoos all over, otherwise unremarkable. Lymphatics: No lymphadenopathy. - Labs CBC & Chem 7: 03/02/21 04:40 03/02/21 04:40 Labs: Abnormal Lab Results - Last 24 Hours (Table) 03/01/21 03/01/21 03/01/21 Range/Units 09:42 12:48 18:02 WBC (3.8-10.6) k/uL Neutrophils # (Manual) (1.3-7.7) k/uL Lymphocytes # (Manual) (1.0-4.8) k/uL Metamyelocytes # (Man) (0) k/uL D-Dimer (<0.60) mg/L FEU ABG pH 7.33 L 7.23 L (7.35-7.45) ABG pCO2 52 H 60 H (35-45) mmHg ABG pO2 59 L* 66 L (83-108) mmHg ABG HCO3 27 H (21-25) mmol/L ABG Total CO2 29 H 27 H (19-24) mmol/L ABG O2 Saturation 87.6 L 87.2 L (94-97) % Sodium (137-145) mmol/L Glucose (74-99) mg/dL POC Glucose (mg/dL) 137 H (75-99) mg/dL Calcium (8.4-10.2) mg/dL Magnesium (1.6-2.3) mg/dL Lactate Dehydrogenase (313-618) U/L C-Reactive Protein (<1.0) mg/dL Total Protein (6.3-8.2) g/dL Albumin (3.5-5.0) g/dL Ur Specific [place] (1.001-1.035) Urine Protein (Negative) Urine Ketones (Negative) Urine Blood (Negative) Urine RBC (0-5) /hpf Urine WBC (0-5) /hpf Urine Mucus (None) /hpf 03/02/21 03/02/21 03/02/21 Range/Units 00:27 04:40 04:40 WBC 15.0 H (3.8-10.6) k/uL Neutrophils # (Manual) 14.20 H (1.3-7.7) k/uL Lymphocytes # (Manual) 0.30 L (1.0-4.8) k/uL Metamyelocytes # (Man) 0.15 H (0) k/uL D-Dimer (<0.60) mg/L FEU ABG pH (7.35-7.45) ABG pCO2 (35-45) mmHg ABG pO2 (83-108) mmHg ABG HCO3 (21-25) mmol/L ABG Total CO2 (19-24) mmol/L ABG O2 Saturation (94-97) % Sodium 131 L (137-145) mmol/L Glucose 153 H (74-99) mg/dL POC Glucose (mg/dL) 150 H (75-99) mg/dL Calcium 7.7 L (8.4-10.2) mg/dL Magnesium 2.7 H (1.6-2.3) mg/dL Lactate Dehydrogenase 1221 H (313-618) U/L C-Reactive Protein 5.4 H (<1.0) mg/dL Total Protein 5.2 L (6.3-8.2) g/dL Albumin 2.6 L (3.5-5.0) g/dL Ur Specific [place] (1.001-1.035) Urine Protein (Negative) Urine Ketones (Negative) Urine Blood (Negative) Urine RBC (0-5) /hpf Urine WBC (0-5) /hpf Urine Mucus (None) /hpf 03/02/21 03/02/21 03/02/21 Range/Units 05:45 05:50 08:04 WBC (3.8-10.6) k/uL Neutrophils # (Manual) (1.3-7.7) k/uL Lymphocytes # (Manual) (1.0-4.8) k/uL Metamyelocytes # (Man) (0) k/uL D-Dimer (<0.60) mg/L FEU ABG pH 7.31 L (7.35-7.45) ABG pCO2 59 H (35-45) mmHg ABG pO2 (83-108) mmHg ABG HCO3 30 H (21-25) mmol/L ABG Total CO2 32 H (19-24) mmol/L ABG O2 Saturation (94-97) % Sodium (137-145) mmol/L Glucose (74-99) mg/dL POC Glucose (mg/dL) 155 H 150 H (75-99) mg/dL Calcium (8.4-10.2) mg/dL Magnesium (1.6-2.3) mg/dL Lactate Dehydrogenase (313-618) U/L C-Reactive Protein (<1.0) mg/dL Total Protein (6.3-8.2) g/dL Albumin (3.5-5.0) g/dL Ur Specific [place] (1.001-1.035) Urine Protein (Negative) Urine Ketones (Negative) Urine Blood (Negative) Urine RBC (0-5) /hpf Urine WBC (0-5) /hpf Urine Mucus (None) /hpf 03/02/21 03/02/21 03/02/21 Range/Units 09:45 11:05 11:48 WBC (3.8-10.6) k/uL Neutrophils # (Manual) (1.3-7.7) k/uL Lymphocytes # (Manual) (1.0-4.8) k/uL Metamyelocytes # (Man) (0) k/uL D-Dimer 1.81 H (<0.60) mg/L FEU ABG pH (7.35-7.45) ABG pCO2 (35-45) mmHg ABG pO2 (83-108) mmHg ABG HCO3 (21-25) mmol/L ABG Total CO2 (19-24) mmol/L ABG O2 Saturation (94-97) % Sodium (137-145) mmol/L Glucose (74-99) mg/dL POC Glucose (mg/dL) 150 H (75-99) mg/dL Calcium (8.4-10.2) mg/dL Magnesium (1.6-2.3) mg/dL Lactate Dehydrogenase (313-618) U/L C-Reactive Protein (<1.0) mg/dL Total Protein (6.3-8.2) g/dL Albumin (3.5-5.0) g/dL Ur Specific [place] 1.036 H (1.001-1.035) Urine Protein Trace H (Negative) Urine Ketones Trace H (Negative) Urine Blood Small H (Negative) Urine RBC 148 H (0-5) /hpf Urine WBC 8 H (0-5) /hpf Urine Mucus Rare H (None) /hpf Microbiology - Last 24 Hours (Table) 03/01/21 22:11 Gram Stain - Preliminary Sputum Sputum Culture - Preliminary Assessment and Plan Assessment: Impression: Acute hypoxic respiratory failure secondary to COVID-19 pneumonia, requiring intubation mechanical ventilation. On 03/01/2021. Acute ileus requiring decompression with nasogastric tube, continues to have a significant drainage from his nasogastric tube. And he he is to be evaluated by Dr. dutton/general surgery. Elevated inflammatory markers secondary to above. Lymphopenia secondary to above. Elevated liver enzymes secondary to above. 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 Recommendation: Continue ventilatory support. Consider TPN, assuming the patient is now going to be fed over the next 24 hours. Continue nasogastric tube to suction. Continue the COVID-19 cocktail including Decadron and Lovenox. Patient was on of the window for REM. Continue albuterol. Empiric antibiotics will be given mostly because the patient had a bit of a fever, and slight increase in his WBC count. Ordered blood cultures, pancultures, and Procrit started level. But in the meantime the patient will receive Zosyn. Patient did receive toci before he was transferred to the ICU. Prognosis is guarded, We'll continue to follow. Critical care time is over 30 minutes. Time with Patient: Greater than 30
--- NOTE | 2021-03-02 16:00 | P.GSHP ---
History of Present Illness H&P Date: 03/02/21 Chief Complaint: Ileus 35-year-old male admitted to the hospital because of Covid. He had respiratory decompensation yesterday. Prior to intubation patient had a chest x-ray which demonstrated gastric distention in addition to colonic distention. After intubation a oral gastric tube was placed with 6-700 mL of bilious fluid. There has not been much output since then. Patient apparently had no discomfort. He was on BiPAP which may have contributed to his air-filled stomach. Patient is stable on the ventilator however oxygen requirements and ventilatory requirement s are still fairly high. - Review of Systems ROS unobtainable: Reports: due to endotracheal tube Past Medical History Past Medical History: Asthma Additional Past Medical History / Comment(s): Pt tested covid + on 02/18/21 at [facility] on [address]. Other hx: Exertional asthma History of Any Multi-Drug Resistant Organisms: None Reported Past Surgical History: No Surgical Hx Reported Past Anesthesia/Blood Transfusion Reactions: Unable to Obtain Additional Past Anesthesia/Blood Transfusion Reaction / Comment(s): Pt has never had surgery Past Psychological History: No Psychological Hx Reported Smoking Status: Never smoker Past Alcohol Use History: None Reported Past Drug Use History: None Reported - Past Family History Father Family Medical History: Myocardial Infarction ([place]) Additional Family Medical History / Comment(s): Father had MIs. Mother Family Medical History: Cancer Additional Family Medical History / Comment(s): Mother had breast cancer. Medications and Allergies Home Medications Medication Instructions Recorded Confirmed Type No Known Home Medications 02/24/21 02/24/21 History Allergies Allergy/AdvReac Type Severity Reaction Status Date / Time No Known Allergies Allergy Verified 02/24/21 10:11 Surgical - Exam Vital Signs Temp Pulse Resp BP Pulse Ox 103 F H 92 18 124/77 92 L 02/24/21 09:06 02/24/21 09:06 02/24/21 09:06 02/24/21 09:06 02/24/21 09:06 Physical exam: General: Well-developed, well-nourished HEENT: Normocephalic, sclerae nonicteric, endotracheal tube and oral gastric tube in place Abdomen: Nontender, mild distention Extremities: Mild lower extremity edema Neuro: Sedated on ventilator Results - Labs 03/02/21 04:40 03/02/21 04:40 Abnormal Lab Results - Last 24 Hours (Table) 03/01/21 03/01/21 03/02/21 Range/Units 09:42 18:02 00:27 WBC (3.8-10.6) k/uL Neutrophils # (Manual) (1.3-7.7) k/uL Lymphocytes # (Manual) (1.0-4.8) k/uL Metamyelocytes # (Man) (0) k/uL D-Dimer (<0.60) mg/L FEU ABG pH 7.33 L (7.35-7.45) ABG pCO2 52 H (35-45) mmHg ABG pO2 59 L* (83-108) mmHg ABG HCO3 27 H (21-25) mmol/L ABG Total CO2 29 H (19-24) mmol/L ABG O2 Saturation 87.6 L (94-97) % Sodium (137-145) mmol/L Glucose (74-99) mg/dL POC Glucose (mg/dL) 137 H 150 H (75-99) mg/dL Calcium (8.4-10.2) mg/dL Magnesium (1.6-2.3) mg/dL Lactate Dehydrogenase (313-618) U/L C-Reactive Protein (<1.0) mg/dL Total Protein (6.3-8.2) g/dL Albumin (3.5-5.0) g/dL Ur Specific [place] (1.001-1.035) Urine Protein (Negative) Urine Ketones (Negative) Urine Blood (Negative) Urine RBC (0-5) /hpf Urine WBC (0-5) /hpf Urine Mucus (None) /hpf 03/02/21 03/02/21 03/02/21 Range/Units 04:40 04:40 05:45 WBC 15.0 H (3.8-10.6) k/uL Neutrophils # (Manual) 14.20 H (1.3-7.7) k/uL Lymphocytes # (Manual) 0.30 L (1.0-4.8) k/uL Metamyelocytes # (Man) 0.15 H (0) k/uL D-Dimer (<0.60) mg/L FEU ABG pH (7.35-7.45) ABG pCO2 (35-45) mmHg ABG pO2 (83-108) mmHg ABG HCO3 (21-25) mmol/L ABG Total CO2 (19-24) mmol/L ABG O2 Saturation (94-97) % Sodium 131 L (137-145) mmol/L Glucose 153 H (74-99) mg/dL POC Glucose (mg/dL) 155 H (75-99) mg/dL Calcium 7.7 L (8.4-10.2) mg/dL Magnesium 2.7 H (1.6-2.3) mg/dL Lactate Dehydrogenase 1221 H (313-618) U/L C-Reactive Protein 5.4 H (<1.0) mg/dL Total Protein 5.2 L (6.3-8.2) g/dL Albumin 2.6 L (3.5-5.0) g/dL Ur Specific [place] (1.001-1.035) Urine Protein (Negative) Urine Ketones (Negative) Urine Blood (Negative) Urine RBC (0-5) /hpf Urine WBC (0-5) /hpf Urine Mucus (None) /hpf 03/02/21 03/02/21 03/02/21 Range/Units 05:50 08:04 09:45 WBC (3.8-10.6) k/uL Neutrophils # (Manual) (1.3-7.7) k/uL Lymphocytes # (Manual) (1.0-4.8) k/uL Metamyelocytes # (Man) (0) k/uL D-Dimer 1.81 H (<0.60) mg/L FEU ABG pH 7.31 L (7.35-7.45) ABG pCO2 59 H (35-45) mmHg ABG pO2 (83-108) mmHg ABG HCO3 30 H (21-25) mmol/L ABG Total CO2 32 H (19-24) mmol/L ABG O2 Saturation (94-97) % Sodium (137-145) mmol/L Glucose (74-99) mg/dL POC Glucose (mg/dL) 150 H (75-99) mg/dL Calcium (8.4-10.2) mg/dL Magnesium (1.6-2.3) mg/dL Lactate Dehydrogenase (313-618) U/L C-Reactive Protein (<1.0) mg/dL Total Protein (6.3-8.2) g/dL Albumin (3.5-5.0) g/dL Ur Specific [place] (1.001-1.035) Urine Protein (Negative) Urine Ketones (Negative) Urine Blood (Negative) Urine RBC (0-5) /hpf Urine WBC (0-5) /hpf Urine Mucus (None) /hpf 03/02/21 03/02/21 Range/Units 11:05 11:48 WBC (3.8-10.6) k/uL Neutrophils # (Manual) (1.3-7.7) k/uL Lymphocytes # (Manual) (1.0-4.8) k/uL Metamyelocytes # (Man) (0) k/uL D-Dimer (<0.60) mg/L FEU ABG pH (7.35-7.45) ABG pCO2 (35-45) mmHg ABG pO2 (83-108) mmHg ABG HCO3 (21-25) mmol/L ABG Total CO2 (19-24) mmol/L ABG O2 Saturation (94-97) % Sodium (137-145) mmol/L Glucose (74-99) mg/dL POC Glucose (mg/dL) 150 H (75-99) mg/dL Calcium (8.4-10.2) mg/dL Magnesium (1.6-2.3) mg/dL Lactate Dehydrogenase (313-618) U/L C-Reactive Protein (<1.0) mg/dL Total Protein (6.3-8.2) g/dL Albumin (3.5-5.0) g/dL Ur Specific [place] 1.036 H (1.001-1.035) Urine Protein Trace H (Negative) Urine Ketones Trace H (Negative) Urine Blood Small H (Negative) Urine RBC 148 H (0-5) /hpf Urine WBC 8 H (0-5) /hpf Urine Mucus Rare H (None) /hpf Microbiology - Last 24 Hours (Table) 03/01/21 22:11 Gram Stain - Preliminary Sputum Sputum Culture - Preliminary Diabetes panel 03/02/21 Range/Units 04:40 Sodium 131 L (137-145) mmol/L Potassium 5.0 (3.5-5.1) mmol/L Chloride 98 (98-107) mmol/L Carbon Dioxide 29 (22-30) mmol/L BUN 14 (9-20) mg/dL Creatinine 0.69 (0.66-1.25) mg/dL Glucose 153 H (74-99) mg/dL Calcium 7.7 L (8.4-10.2) mg/dL AST 33 (17-59) U/L ALT 33 (4-49) U/L Alkaline Phosphatase 52 (38-126) U/L Total Protein 5.2 L (6.3-8.2) g/dL Albumin 2.6 L (3.5-5.0) g/dL Calcium panel 03/02/21 Range/Units 04:40 Calcium 7.7 L (8.4-10.2) mg/dL Albumin 2.6 L (3.5-5.0) g/dL Pituitary panel 03/02/21 Range/Units 04:40 Sodium 131 L (137-145) mmol/L Potassium 5.0 (3.5-5.1) mmol/L Chloride 98 (98-107) mmol/L Carbon Dioxide 29 (22-30) mmol/L BUN 14 (9-20) mg/dL Creatinine 0.69 (0.66-1.25) mg/dL Glucose 153 H (74-99) mg/dL Calcium 7.7 L (8.4-10.2) mg/dL Adrenal panel 03/02/21 Range/Units 04:40 Sodium 131 L (137-145) mmol/L Potassium 5.0 (3.5-5.1) mmol/L Chloride 98 (98-107) mmol/L Carbon Dioxide 29 (22-30) mmol/L BUN 14 (9-20) mg/dL Creatinine 0.69 (0.66-1.25) mg/dL Glucose 153 H (74-99) mg/dL Calcium 7.7 L (8.4-10.2) mg/dL Total Bilirubin 1.0 (0.2-1.3) mg/dL AST 33 (17-59) U/L ALT 33 (4-49) U/L Alkaline Phosphatase 52 (38-126) U/L Total Protein 5.2 L (6.3-8.2) g/dL Albumin 2.6 L (3.5-5.0) g/dL Assessment and Plan (1) Ileus Narrative/Plan: 35-year-old male with ileus by x-ray yesterday. Patient's white blood cell count is improved today however bandemia is present. No pressor requirements. We'll order abdominal x-rays tomorrow morning. Add Reglan and Dulcolax suppositories daily. Continue oral gastric tube to suction for now. We'll follow closely. Current Visit: Yes Status: Acute Code(s): K56.7 - ILEUS, UNSPECIFIED SNOMED Code(s): 216674654
[2021-03-02] MEDS: bisacodyL 10 MG SUPP RECTAL SCH (16:26)
[2021-03-02 17:48] LABS: Glucose,Whole Blood 123 mg/dL (75-99)
--- NOTE | 2021-03-02 17:50 | P.PN ---
Subjective Progress Note Date: 03/02/21 Osmar Drummond, is a 35-year-old male patient of Dr. Hdz, who presented to [facility] emergency room with a chief complaint of worsening shortness of breath and chest tightness. Patient was also having persistent cough his symptoms started 12 days ago however he had severe worsening of his symptoms in the last 3 days. He stated that last Saturday he was tested for COVID-19, results came back positive on Saturday. He was evaluated in the emergency room vital examination on presentation revealed a temperature of 103 pulse 92 respiration 18 blood pressure 124/77 pulse ox 92% on room air. White blood count was 4.2 hemoglobin 15.4 platelet count 161 sodium 125 potassium 3.9 chloride 88 calcium 7.8 BUN 8 creatinine 0.94 AST 98 ALT 57 LDH 1623 C-reactive protein 41.1 EKG done in the emergency room revealed normal sinus rhythm normal EKG, chest x-ray done in the emergency room revealed patchy bilateral infiltrates compatible with multifocal pneumonia no pneumothorax. Patient was admitted to medical floor pulmonary consultation was requested. On 02/25/2021 patient was seen and examined on the medical floor he is alert and oriented 3 in no distress, he is still complaining of cough and shortness of breath otherwise he denies any complaints there is no fever or chills no hea dache or dizziness no chest pain no nausea or vomiting no abdominal pain no diarrhea no blood in the stools no burning was urination no frequency or urgency and no hematuria. On 02/26/2021 patient was seen and examined on the medical floor he is alert and oriented 3 in no distress he seems to be worse today he is having more tachycardia and tachypnea, his temperature is 99.8 pulse ox is down to 82% on 15 L high flow cannula inflammatory markers are up his LDH is 1735 up from 1440 yesterday C-reactive protein is up to 7.2 up from 6 yesterday d-dimer is up to 1.21 up from 0.77 yesterday, at this time patient is maintained on inhaled bronchodilators, IV Decadron, subcu Lovenox,, repeat chest x-ray done today reveals by basilar infiltrates and opacities consistent with COVID-19 infection without any significant change from previous x-ray on 02/27/2021 patient was seen and examined on the medical floor, he is alert and oriented 3 in no apparent distress he is reporting some improvement in his shortness of breath, vital exam reveals a temperature of 99.1 pulse 102 respiration 20 blood pressure 121/84 pulse ox 87% on 15 L high flow cannula, white blood count is 6.2 hemoglobin 13.8 platelet count 262 d-dimer 1.51 sodium 127 potassium 4.0 chloride 94 CO2 25 BUN 13 creatinine 0.81 LDH 1969 C-reactive protein up to 8.9, patient is complaining of cough and shortness of breath otherwise he denies any complaints there is no fever or chills no headache or dizziness no chest pain no nausea or vomiting no abdominal pain no diarrhea no blood in the stools no burning with urination no frequency or urgency and no hematuria On 02/28/2021 patient was seen and examined on the medical floor he is alert and oriented 3 in no apparent distress, he is still maintained on Airvo with FiO2 of 90% his temperature is 98.7 pulse 116 respiration 28 blood pressure 145/81 pulse ox 93% he is complaining of shortness of breath and occasional cough otherwise he denies any complaints there is no fever or chills no headache or dizziness no chest pain no nausea or vomiting no abdominal pain no diarrhea no blood in the stools no burning with urination no frequency or urgency and no hematuria. On 03/01/2021 patient was seen and examined in the ICU he is intubated sedated maintained on mechanical ventilation air this morning patient was having worsening shortness of breath and decreased O2 sat duration despite Airvo, he was transferred to ICU and was intubated. Currently patient is on assist c ontrol tidal volume of 400 rate of 30 FiO2 100% and PEEP of 10 arterial blood gas reveals a pH of 7.24 pCO2 55 PO2 78 sodium is 127 LDH 2034 C-reactive protein 4.5 pulmonary are following closely On 03/02/2021 patient was seen and examined in the ICU he is intubated sedated maintained on mechanical ventilation air this morning patient was having worsening shortness of breath and decreased O2 sat duration despite Airvo, he was transferred to ICU and was intubated. Currently patient is on assist control tidal volume of 400 rate of 30 FiO2 100% and PEEP of 10 arterial blood gas reveals a pH of 7.24 pCO2 55 PO2 78 sodium is 127 LDH 203 C-reactive protein 4.5 pulmonary are following closely. Patient has evidence of ileus, he is maintained on NG tube to suction, surgical consultation was requested. Objective - Vital Signs Vital signs: Vital Signs Temp 100.6 F H 03/02/21 16:00 Pulse 102 H 03/02/21 17:00 Resp 32 H 03/02/21 17:00 BP 131/67 03/02/21 05:00 Pulse Ox 94 L 03/02/21 17:00 Intake & Output 03/01/21 03/02/21 03/02/21 18:59 06:59 18:59 Intake Total 800 0516.206 1813.140 Output Total 1600 1750 1050 Balance -800 -192.002 572.140 Weight 129.274 kg 129.6 kg Intake: IV 825 825 Sodium Chloride 0.9% 1, 825 825 000 ml @ 75 mls/hr IV . [id number] TERI Rx#:[id number] Intake, IV Titration 800 732.998 797.140 Amount ACETAMINOPHEN IV (For NPO 100 ) 1,000 mg In Empty Bag 1 bag @ 400 mls/hr IVPB Q6HR PRN Rx#:[id number] Cisatracurium 200 mg In 265.014 70.586 Sodium Chloride 0.9% 180 ml @ 1 MCG/KG/MIN 7.756 mls/hr IV .Q24H TERI Rx#: [id number] Piperacillin-Tazobactam 3 200 .375 gm In Sodium Chloride 0.9% 100 ml @ 25 mls/hr IVPB Q8HR TERI Rx# :[id number] Sodium Chloride 0.9% 1, 600 000 ml @ 75 mls/hr IV . [id number] TERI Rx#:[id number] fentaNYL (PF). 1,000 mcg 41.796 In Sodium Chloride 0.9% 80 ml @ Per Protocol IV . Q0M TERI Rx#:[id number] propofoL 1,000 mg In 200 467.984 384.758 Empty Bag 1 bag @ Titrate IV .Q0M TERI Rx#: [id number] Output: Gastric Drainage 500 Urine 1600 1250 1050 Other: Voiding Method Indwelling Catheter Indwelling Catheter Indwelling Catheter # Bowel Movements 1 ABP, PAP, CO, CI - Last Documented Arterial Blood Pressure 120/67 - Exam In general patient is intubated sedated maintained on mechanical ventilation HEENT head normocephalic and atraumatic Neck is supple no JVD no goiter no lymphadenopathy Chest exam reveals a few scattered crackles no wheezing Cardiac exam reveals regular heart sounds no gallops no murmurs Abdomen is soft nontender no organomegaly with normal bowel sounds Extremity exam reveals no edema no cyanosis or clubbing Neurological examination reveals no gross focal deficit - Labs CBC & Chem 7: 03/02/21 04:40 03/02/21 04:40 Labs: Abnormal Lab Results - Last 24 Hours (Table) 03/01/21 03/01/21 03/02/21 Range/Units 09:42 18:02 00:27 WBC (3.8-10.6) k/uL Neutrophils # (Manual) (1.3-7.7) k/uL Lymphocytes # (Manual) (1.0-4.8) k/uL Metamyelocytes # (Man) (0) k/uL D-Dimer (<0.60) mg/L FEU ABG pH 7.33 L (7.35-7.45) ABG pCO2 52 H (35-45) mmHg ABG pO2 59 L* (83-108) mmHg ABG HCO3 27 H (21-25) mmol/L ABG Total CO2 29 H (19-24) mmol/L ABG O2 Saturation 87.6 L (94-97) % Sodium (137-145) mmol/L Glucose (74-99) mg/dL POC Glucose (mg/dL) 137 H 150 H (75-99) mg/dL Calcium (8.4-10.2) mg/dL Magnesium (1.6-2.3) mg/dL Lactate Dehydrogenase (313-618) U/L C-Reactive Protein (<1.0) mg/dL Total Protein (6.3-8.2) g/dL Albumin (3.5-5.0) g/dL Ur Specific [place] (1.001-1.035) Urine Protein (Negative) Urine Ketones (Negative) Urine Blood (Negative) Urine RBC (0-5) /hpf Urine WBC (0-5) /hpf Urine Mucus (None) /hpf 03/02/21 03/02/21 03/02/21 Range/Units 04:40 04:40 05:45 WBC 15.0 H (3.8-10.6) k/uL Neutrophils # (Manual) 14.20 H (1.3-7.7) k/uL Lymphocytes # (Manual) 0.30 L (1.0-4.8) k/uL Metamyelocytes # (Man) 0.15 H (0) k/uL D-Dimer (<0.60) mg/L FEU ABG pH (7.35-7.45) ABG pCO2 (35-45) mmHg ABG pO2 (83-108) mmHg ABG HCO3 (21-25) mmol/L ABG Total CO2 (19-24) mmol/L ABG O2 Saturation (94-97) % Sodium 131 L (137-145) mmol/L Glucose 153 H (74-99) mg/dL POC Glucose (mg/dL) 155 H (75-99) mg/dL Calcium 7.7 L (8.4-10.2) mg/dL Magnesium 2.7 H (1.6-2.3) mg/dL Lactate Dehydrogenase 1221 H (313-618) U/L C-Reactive Protein 5.4 H (<1.0) mg/dL Total Protein 5.2 L (6.3-8.2) g/dL Albumin 2.6 L (3.5-5.0) g/dL Ur Specific [place] (1.001-1.035) Urine Protein (Negative) Urine Ketones (Negative) Urine Blood (Negative) Urine RBC (0-5) /hpf Urine WBC (0-5) /hpf Urine Mucus (None) /hpf 03/02/21 03/02/21 03/02/21 Range/Units 05:50 08:04 09:45 WBC (3.8-10.6) k/uL Neutrophils # (Manual) (1.3-7.7) k/uL Lymphocytes # (Manual) (1.0-4.8) k/uL Metamyelocytes # (Man) (0) k/uL D-Dimer 1.81 H (<0.60) mg/L FEU ABG pH 7.31 L (7.35-7.45) ABG pCO2 59 H (35-45) mmHg ABG pO2 (83-108) mmHg ABG HCO3 30 H (21-25) mmol/L ABG Total CO2 32 H (19-24) mmol/L ABG O2 Saturation (94-97) % Sodium (137-145) mmol/L Glucose (74-99) mg/dL POC Glucose (mg/dL) 150 H (75-99) mg/dL Calcium (8.4-10.2) mg/dL Magnesium (1.6-2.3) mg/dL Lactate Dehydrogenase (313-618) U/L C-Reactive Protein (<1.0) mg/dL Total Protein (6.3-8.2) g/dL Albumin (3.5-5.0) g/dL Ur Specific [place] (1.001-1.035) Urine Protein (Negative) Urine Ketones (Negative) Urine Blood (Negative) Urine RBC (0-5) /hpf Urine WBC (0-5) /hpf Urine Mucus (None) /hpf 03/02/21 03/02/21 Range/Units 11:05 11:48 WBC (3.8-10.6) k/uL Neutrophils # (Manual) (1.3-7.7) k/uL Lymphocytes # (Manual) (1.0-4.8) k/uL Metamyelocytes # (Man) (0) k/uL D-Dimer (<0.60) mg/L FEU ABG pH (7.35-7.45) ABG pCO2 (35-45) mmHg ABG pO2 (83-108) mmHg ABG HCO3 (21-25) mmol/L ABG Total CO2 (19-24) mmol/L ABG O2 Saturation (94-97) % Sodium (137-145) mmol/L Glucose (74-99) mg/dL POC Glucose (mg/dL) 150 H (75-99) mg/dL Calcium (8.4-10.2) mg/dL Magnesium (1.6-2.3) mg/dL Lactate Dehydrogenase (313-618) U/L C-Reactive Protein (<1.0) mg/dL Total Protein (6.3-8.2) g/dL Albumin (3.5-5.0) g/dL Ur Specific [place] 1.036 H (1.001-1.035) Urine Protein Trace H (Negative) Urine Ketones Trace H (Negative) Urine Blood Small H (Negative) Urine RBC 148 H (0-5) /hpf Urine WBC 8 H (0-5) /hpf Urine Mucus Rare H (None) /hpf Microbiology - Last 24 Hours (Table) 03/01/21 22:11 Gram Stain - Preliminary Sputum Sputum Culture - Preliminary Assessment and Plan Plan: 1. Acute COVID-19 pneumonia patient started on IV Decadron and subcu Lovenox pulmonary consultation was requested, patient developed acute hypoxic respiratory failure requiring intubation and mechanical ventilation 2. Underlying history of asthma 3. Underlying history of morbid obesity 4. Hyponatremia, patient started on IV normal months leading 5. Elevated liver enzymes, will monitor closely 6. Evidence of ileus patient is maintained on NG tube to suction, surgical consultation following At this time patient was seen and examined in the emergency room he was started on subcu Lovenox and IV dexamethasone, vitamin C and vitamin D and zinc supplements he was also started on inhaled bronchodilators patient will be admitted to medical floor pulmonary consultation was requested. Patient was seen by pulmonary he is maintained on oxygen supplements, IV Decadron, subcu Lovenox, patient has improved since yesterday
[2021-03-02] MEDS: METOCLOPRAMIDE 5 MG/ML 2 ML VIAL IVP SCH ×2 (18:13→23:30)
[2021-03-02] MEDS ORDERED: SODIUM CHLORIDE 0.9% 1,000 ML IV ONE (21:39)
[2021-03-03 01:11] LABS: Glucose,Whole Blood 126 mg/dL (75-99)
[2021-03-03] MEDS: fentaNYL (PF). 1,000 MCG in SODIUM CHLORIDE 0.9% 80 ML IV SCH ×3 (01:56→18:32)
[2021-03-03] MEDS: CISATRACURIUM 200 MG in SODIUM CHLORIDE 0.9% 180 ML IV SCH ×2 (02:43→20:33)
[2021-03-03 04:34] LABS: Basophils % (A) 0 %; Eosinophils # (A) 0.1 k/uL (0-0.7); Eosinophils % (A) 1 %; HCT 38.2 % (39.0-53.0); HGB 12.2 gm/dL (13.0-17.5); Lymphocytes # (A) 0.6 k/uL (1.0-4.8); Lymphocytes % (A) 4 %; MCH 28.6 pg (25.0-35.0); MCV 89.4 fL (80.0-100.0); Mean Platelet Volume 7.8; Monocytes # (A) 0.2 k/uL (0-1.0); Monocytes % (A) 1 %; Neutrophils # (A) 14.3 k/uL (1.3-7.7); Neutrophils % (A) 93 %; Platelet Count 391 k/uL (150-450); RBC 4.28 m/uL (4.30-5.90); RDW 13.6 % (11.5-15.5); WBC 15.3 k/uL (3.8-10.6)
[2021-03-03 05:01] LABS: ALT 32 U/L (4-49); AST 34 U/L (17-59); African American GFR (CKD) >90 (>60 ml/min/1.73 sqM); Albumin 2.6 g/dL (3.5-5.0); Alkaline Phosphatase 61 U/L (38-126); Anion Gap 2 mmol/L; Blood Urea Nitrogen 16 mg/dL (9-20); C Reactive Protein 2.8 mg/dL (<1.0); Calcium 7.4 mg/dL (8.4-10.2); Carbon Dioxide 31 mmol/L (22-30); Chloride 101 mmol/L (98-107); Glucose 113 mg/dL (74-99); LDH 1034 U/L (313-618); Non-African American GFR(CKD) >90 (>60 ml/min/1.73 sqM); Potassium 4.8 mmol/L (3.5-5.1); Sodium 134 mmol/L (137-145); Total Bilirubin 0.5 mg/dL (0.2-1.3)
[2021-03-03] MEDS: SODIUM CHLORIDE 0.9% 1,000 ML IV SCH ×2 (05:24→18:50)
[2021-03-03] MEDS: METOCLOPRAMIDE 5 MG/ML 2 ML VIAL IVP SCH ×3 (05:34→18:50)
[2021-03-03 05:40] LABS: Glucose,Whole Blood 113 mg/dL (75-99)
[2021-03-03 05:41] LABS: ABG Base Excess 8.1 mmol/L; ABG HCO3 33 mmol/L (21-25); ABG Oxygen Saturation 93.2 % (94-97); ABG PCO2 55 mmHg (35-45); ABG PH 7.39 (7.35-7.45); ABG PO2 66 mmHg (83-108); ABG TCO2 35 mmol/L (19-24); Allen Test Performed? Yes
[2021-03-03] MEDS: ALBUTEROL HFA INHALER INHALATION SCH ×4 (07:54→19:08)
[2021-03-03] MEDS: ENOXAPARIN 60 MG/0.6 ML SYRINGE SQ SCH ×2 (08:46→20:21)
[2021-03-03] MEDS: bisacodyL 10 MG SUPP RECTAL SCH (08:46)
[2021-03-03] MEDS: PANTOPRAZOLE 40 MG/10 ML VIAL IV SCH (08:46)
[2021-03-03] MEDS: CHLORHEXIDINE GLUCONATE 15 ML CUP MUCOUS MEM SCH ×2 (08:46→20:22)
[2021-03-03] MEDS: PIPERACILLIN-TAZOBACTAM 3.375 GM in SODIUM CHLORIDE 0.9% 100 ML IVPB SCH ×2 (08:47→18:50)
[2021-03-03] MEDS: DEXAMETHASONE SOD PHOSPHATE 10 MG/ML 1 ML VIAL IV SCH ×2 (08:47→20:22)
--- NOTE | 2021-03-03 09:05 | XR ---
EXAMINATION TYPE: XR chest 1V portable DATE OF EXAM: 03/03/2021 COMPARISON: Chest x-ray 03/02/2021 HISTORY: Intubated TECHNIQUE: Single frontal view of the chest is obtained. FINDINGS: Endotracheal tube, orogastric tube, left-sided PICC line are overlying appropriate positio ns. Bilateral airspace disease is again noted similar to prior exam. No evident pneumothorax or sizab le effusion. Cardiac mediastinal silhouette is unchanged. IMPRESSION: Findings are similar, correlate for pneumonia
--- NOTE | 2021-03-03 09:13 | XR ---
Abdomen HISTORY: Follow-up ileus 2 views the abdomen on 3 images document comparison There are gas filled loops of colon present. Orogastric tube is overlying appropriate position. There is no evident pneumoperitoneum. Roach catheter is in place. Bone mineralization is normal. There are overlying leads. IMPRESSION: Findings consistent with ileus, follow-up as indicated.
[2021-03-03 12:09] LABS: Glucose,Whole Blood 112 mg/dL (75-99)
--- NOTE | 2021-03-03 12:12 | P.PN ---
<Virginia Virk - Last Filed: 03/03/21 12:04> Subjective Progress Note Date: 03/03/21 CHIEF COMPLAINT: Covid pneumonia HISTORY OF PRESENT ILLNESS: Surgical service is following regards to patient's ileus. Patient remains in the ICU and intubated. Patient did have loose stools last night. His abdomen is softer. OG tube output was 700 mL. Patient did have low-grade fevers yesterday. He did have a temp of 100.2 this morning. WBC 15.3 hemoglobin 12.2 platelets 391 creatinine 0.68 abdominal x-ray findings consistent with ileus PHYSICAL EXAM: VITAL SIGNS: Reviewed. GENERAL: Well-developed in no acute distress. HEENT: No sclera icterus. Extraocular movements grossly intact. Moist buccal mucosa. Head is atraumatic, normocephalic. ABDOMEN: Abdomen is softer NEUROLOGIC: Intubated and sedated ASSESSMENT: 1. Ileus 2. Acute hypoxic respiratory failure secondary to COVID-19 pneumonia PLAN: -Continue Reglan and Dulcolax suppositories daily -Continue oral gastric tube to suction -Okay to start low dose of tube feedings -Continue ICU management -Continue supportive care Physician Pet Care Technician note has been reviewed by physician. Signing provider agrees with the documented findings, assessment, and plan of care. Objective - Vital Signs Vital signs: Vital Signs Temp 98.8 F 03/03/21 08:00 Pulse 115 H 03/03/21 11:00 Resp 13 03/03/21 11:00 BP 110/72 03/02/21 20:00 Pulse Ox 91 L 03/03/21 11:00 Intake & Output 03/02/21 03/03/21 03/03/21 18:59 06:59 18:59 Intake Total 4659.819 8210.630 300 Output Total 1325 385 240 Balance 214.659 5247.630 60 Weight 129.4 kg 129.4 kg Intake: IV 975 1825 300 Sodium Chloride 0.9% 1, 975 1825 300 000 ml @ 75 mls/hr IV . [id number] [facility] Rx#:[id number] Intake, IV Titration 909.590 767.630 Amount ACETAMINOPHEN IV (For NPO 100 ) 1,000 mg In Empty Bag 1 bag @ 400 mls/hr IVPB Q6HR PRN Rx#:[id number] Cisatracurium 200 mg In 70.586 179.761 Sodium Chloride 0.9% 180 ml @ 1 MCG/KG/MIN 7.756 mls/hr IV .Q24H [facility] Rx#: [id number] Piperacillin-Tazobactam 3 200 .375 gm In Sodium Chloride 0.9% 100 ml @ 25 mls/hr IVPB Q8HR [facility] Rx# :[id number] fentaNYL (PF). 1,000 mcg 67.932 100 In Sodium Chloride 0.9% 80 ml @ Per Protocol IV . Q0M [facility] Rx#:[id number] propofoL 1,000 mg In 471.072 487.869 Empty Bag 1 bag @ Titrate IV .Q0M [facility] Rx#: [id number] Output: Gastric Drainage 150 Urine 1175 385 240 Other: Voiding Method Indwelling Catheter Indwelling Catheter Indwelling Catheter # Bowel Movements 1 ABP, PAP, CO, CI - Last Documented Arterial Blood Pressure 181/77 - Labs CBC & Chem 7: 03/03/21 04:15 03/03/21 04:15 Labs: Abnormal Lab Results - Last 24 Hours (Table) 03/02/21 03/02/21 03/03/21 Range/Units 09:45 17:47 01:10 WBC (3.8-10.6) k/uL RBC (4.30-5.90) m/uL Hgb (13.0-17.5) gm/dL Hct (39.0-53.0) % Neutrophils # (1.3-7.7) k/uL Lymphocytes # (1.0-4.8) k/uL ABG pCO2 (35-45) mmHg ABG pO2 (83-108) mmHg ABG HCO3 (21-25) mmol/L ABG Total CO2 (19-24) mmol/L ABG O2 Saturation (94-97) % Sodium (137-145) mmol/L Carbon Dioxide (22-30) mmol/L Glucose (74-99) mg/dL POC Glucose (mg/dL) 123 H 126 H (75-99) mg/dL Calcium (8.4-10.2) mg/dL Lactate Dehydrogenase (313-618) U/L C-Reactive Protein (<1.0) mg/dL Total Protein (6.3-8.2) g/dL Albumin (3.5-5.0) g/dL Procalcitonin 1.34 H (0.02-0.09) ng/mL 03/03/21 03/03/21 03/03/21 Range/Units 04:15 04:15 05:37 WBC 15.3 H (3.8-10.6) k/uL RBC 4.28 L (4.30-5.90) m/uL Hgb 12.2 L (13.0-17.5) gm/dL Hct 38.2 L (39.0-53.0) % Neutrophils # 14.3 H (1.3-7.7) k/uL Lymphocytes # 0.6 L (1.0-4.8) k/uL ABG pCO2 55 H (35-45) mmHg ABG pO2 66 L (83-108) mmHg ABG HCO3 33 H (21-25) mmol/L ABG Total CO2 35 H (19-24) mmol/L ABG O2 Saturation 93.2 L (94-97) % Sodium 134 L (137-145) mmol/L Carbon Dioxide 31 H (22-30) mmol/L Glucose 113 H (74-99) mg/dL POC Glucose (mg/dL) (75-99) mg/dL Calcium 7.4 L (8.4-10.2) mg/dL Lactate Dehydrogenase 1034 H (313-618) U/L C-Reactive Protein 2.8 H (<1.0) mg/dL Total Protein 5.0 L (6.3-8.2) g/dL Albumin 2.6 L (3.5-5.0) g/dL Procalcitonin (0.02-0.09) ng/mL 03/03/21 Range/Units 05:39 WBC (3.8-10.6) k/uL RBC (4.30-5.90) m/uL Hgb (13.0-17.5) gm/dL Hct (39.0-53.0) % Neutrophils # (1.3-7.7) k/uL Lymphocytes # (1.0-4.8) k/uL ABG pCO2 (35-45) mmHg ABG pO2 (83-108) mmHg ABG HCO3 (21-25) mmol/L ABG Total CO2 (19-24) mmol/L ABG O2 Saturation (94-97) % Sodium (137-145) mmol/L Carbon Dioxide (22-30) mmol/L Glucose (74-99) mg/dL POC Glucose (mg/dL) 113 H (75-99) mg/dL Calcium (8.4-10.2) mg/dL Lactate Dehydrogenase (313-618) U/L C-Reactive Protein (<1.0) mg/dL Total Protein (6.3-8.2) g/dL Albumin (3.5-5.0) g/dL Procalcitonin (0.02-0.09) ng/mL Microbiology - Last 24 Hours (Table) 03/01/21 22:11 Gram Stain - Preliminary Sputum Sputum Culture - Preliminary <Rk Vargas - Last Filed: 03/03/21 16:42> Subjective As above. Patient is having some bowel movements. Abdominal x-rays slightly improved with decreased colonic gas. May begin low-dose tube feeds. Will follow. Objective - Vital Signs Vital signs: Vital Signs Temp 97.9 F 03/03/21 12:00 Pulse 89 03/03/21 15:00 Resp 32 H 03/03/21 15:00 BP 110/72 03/02/21 20:00 Pulse Ox 95 03/03/21 15:00 Intake & Output 03/02/21 03/03/21 03/03/21 18:59 06:59 18:59 Intake Total 8310.060 2453.630 800 Output Total 1325 385 340 Balance 044.212 0713.630 460 Weight 129.4 kg 129.4 kg Intake: IV 975 1825 600 Sodium Chloride 0.9% 1, 975 1825 600 000 ml @ 75 mls/hr IV . [id number] [facility] Rx#:[id number] Intake, IV Titration 909.590 767.630 200 Amount ACETAMINOPHEN IV (For NPO 100 ) 1,000 mg In Empty Bag 1 bag @ 400 mls/hr IVPB Q6HR [facility] Rx#:[id number] Cisatracurium 200 mg In 70.586 179.761 Sodium Chloride 0.9% 180 ml @ 1 MCG/KG/MIN 7.756 mls/hr IV .Q24H [facility] Rx#: [id number] Piperacillin-Tazobactam 3 200 .375 gm In Sodium Chloride 0.9% 100 ml @ 25 mls/hr IVPB Q8HR [facility] Rx# :[id number] fentaNYL (PF). 1,000 mcg 67.932 100 100 In Sodium Chloride 0.9% 80 ml @ Per Protocol IV . Q0M [facility] Rx#:[id number] propofoL 1,000 mg In 471.072 487.869 100 Empty Bag 1 bag @ Titrate IV .Q0M [facility] Rx#: [id number] Output: Gastric Drainage 150 Urine 1175 385 340 Other: Voiding Method Indwelling Catheter Indwelling Catheter Indwelling Catheter # Bowel Movements 1 ABP, PAP, CO, CI - Last Documented Arterial Blood Pressure 116/55 - Labs CBC & Chem 7: 03/03/21 04:15 03/03/21 04:15 Labs: Abnormal Lab Results - Last 24 Hours (Table) 03/02/21 03/02/21 03/03/21 Range/Units 09:45 17:47 01:10 WBC (3.8-10.6) k/uL RBC (4.30-5.90) m/uL Hgb (13.0-17.5) gm/dL Hct (39.0-53.0) % Neutrophils # (1.3-7.7) k/uL Lymphocytes # (1.0-4.8) k/uL ABG pCO2 (35-45) mmHg ABG pO2 (83-108) mmHg ABG HCO3 (21-25) mmol/L ABG Total CO2 (19-24) mmol/L ABG O2 Saturation (94-97) % Sodium (137-145) mmol/L Carbon Dioxide (22-30) mmol/L Glucose (74-99) mg/dL POC Glucose (mg/dL) 123 H 126 H (75-99) mg/dL Calcium (8.4-10.2) mg/dL Lactate Dehydrogenase (313-618) U/L C-Reactive Protein (<1.0) mg/dL Total Protein (6.3-8.2) g/dL Albumin (3.5-5.0) g/dL Procalcitonin 1.34 H (0.02-0.09) ng/mL 03/03/21 03/03/21 03/03/21 Range/Units 04:15 04:15 05:37 WBC 15.3 H (3.8-10.6) k/uL RBC 4.28 L (4.30-5.90) m/uL Hgb 12.2 L (13.0-17.5) gm/dL Hct 38.2 L (39.0-53.0) % Neutrophils # 14.3 H (1.3-7.7) k/uL Lymphocytes # 0.6 L (1.0-4.8) k/uL ABG pCO2 55 H (35-45) mmHg ABG pO2 66 L (83-108) mmHg ABG HCO3 33 H (21-25) mmol/L ABG Total CO2 35 H (19-24) mmol/L ABG O2 Saturation 93.2 L (94-97) % Sodium 134 L (137-145) mmol/L Carbon Dioxide 31 H (22-30) mmol/L Glucose 113 H (74-99) mg/dL POC Glucose (mg/dL) (75-99) mg/dL Calcium 7.4 L (8.4-10.2) mg/dL Lactate Dehydrogenase 1034 H (313-618) U/L C-Reactive Protein 2.8 H (<1.0) mg/dL Total Protein 5.0 L (6.3-8.2) g/dL Albumin 2.6 L (3.5-5.0) g/dL Procalcitonin (0.02-0.09) ng/mL 03/03/21 03/03/21 Range/Units 05:39 12:08 WBC (3.8-10.6) k/uL RBC (4.30-5.90) m/uL Hgb (13.0-17.5) gm/dL Hct (39.0-53.0) % Neutrophils # (1.3-7.7) k/uL Lymphocytes # (1.0-4.8) k/uL ABG pCO2 (35-45) mmHg ABG pO2 (83-108) mmHg ABG HCO3 (21-25) mmol/L ABG Total CO2 (19-24) mmol/L ABG O2 Saturation (94-97) % Sodium (137-145) mmol/L Carbon Dioxide (22-30) mmol/L Glucose (74-99) mg/dL POC Glucose (mg/dL) 113 H 112 H (75-99) mg/dL Calcium (8.4-10.2) mg/dL Lactate Dehydrogenase (313-618) U/L C-Reactive Protein (<1.0) mg/dL Total Protein (6.3-8.2) g/dL Albumin (3.5-5.0) g/dL Procalcitonin (0.02-0.09) ng/mL Microbiology - Last 24 Hours (Table) 03/01/21 22:11 Gram Stain - Preliminary Sputum Sputum Culture - Preliminary Presumptive Staph aureus Moraxella(branhamella) catarra 03/02/21 09:53 Blood Culture - Preliminary Blood No Growth after 24 hours 03/02/21 09:45 Blood Culture - Preliminary Blood No Growth after 24 hours Assessment and Plan (1) Ileus Current Visit: Yes Status: Acute Code(s): K56.7 - ILEUS, UNSPECIFIED SNOMED Code(s): 438508879
--- NOTE | 2021-03-03 13:02 | P.PN ---
Subjective Progress Note Date: 03/03/21 Principal diagnosis: Acute hypoxic respiratory failure secondary to COVID-19 pneumonia. 35-year-old male admitted with a diagnosis of acute hypoxemic respiratory failure secondary to COVID 19 pneumonia. Chest x-ray showed multifocal bilateral infiltrates. In addition, the patient is morbidly obese, likely has sleep apnea syndrome, has lymphopenia, hyponatremia, and elevated liver function tests, all secondary to COVID 19. Currently, the patient's on saline at 75 mL an hour, and high flow nasal O2 at 15 L/m. White count 6.2, hemoglobin 13.8, hematocrit 39.0, and platelet count 262,000. D-dimer is 1.51. Sodium 127, potassium 4, chlorides 94, CO2 25, anion gap 8, BUN 13, creatinine 0.81. LDH is 1969, and C-reactive protein is 8.9. Chest x-ray shows bilateral infiltrates. Progress note dated 02/28/2021. 35-year-old male with a diagnosis of acute hypoxemic respiratory failure secondary to COVID 19 pneumonia. Chest x-ray showed multifocal bilateral infiltrates. The patient also has obesity, sleep apnea syndrome, lymphopenia, hyponatremic, and liver function abnormalities, all consistent with coronavirus infection. Yesterday, the patient was on high flow nasal O2, and nonrebreather mask. This morning, the respiratory therapist switch him over to AIRVO, at 60 L/m and 90% FiO2. The patient is not receiving any IV fluids. D-dimer is 4.62. Patient was reevaluated today on 03/01/2021, patient remains on selective, however I was called to see the patient. He seems to be in severe respiratory distress. Patient is on BiPAP, his respiratory rate is 16 times per minute, patient is anxious, and his O2 saturation is 92%. Clearly the patient is in severe respiratory distress, chest x-ray showed bilateral patchy infiltrates, and a dilated stomach, and some dilated bowel loops. Could not place a nasogastric tube because the patient was on BiPAP, and noted to be desaturating easily. As soon as I evaluated the patient, I recommended immediate transfer to the ICU, intubation mechanical ventilation. Patient will be placed on tidal volume is 400, assist control rate of 30, 100% FiO2, and PEEP of 10. Follow-up chest x-ray will be done post intubation, and a nasogastric tube will also be placed as soon as the patient is intubated. We are in the process of transferring the patient now to the ICU for intubation mechanical ventilation, as his pulmonary status seems to be deteriorating quite fast. ABG from earlier today showed a pO2 of 78 pCO2 of 55 pH of 7.24, and this was on BiPAP 100% FiO2. This ABG was done at 8:15 AM. Inflammatory markers noted to be on the rise, LDH is 2035, and C-reactive protein is 4.5. The CBC count is 19.9 hemoglobin is 15.5. D-dimer is 4.62. Sodium is low at 127 potassium is 5.0. Renal profile is normal. Patient was reevaluated today on 03/02/2021, remains in the ICU, patient had to be intubated yesterday. His pulmonary status deteriorated in spite of being maximized on BiPAP. Hence I recommended intubation and mechanical ventilation. He is now on assist control rate of 3 to tidal volume is 420 FiO2 is 95% and PEEP of 16. ABG showed a pO2 of 87 pCO2 of 59 pH of 7.31. Peak airway pressure is 34, static pressure is 32. Patient is on propofol at 60 Nimbex at 1.5, I recommended adding fentany propofol and Nimbex. Patient was intubated on 03/01. He has a low-grade fever, I would place the patient empirically on Zosyn, patient will be pancultured today. Including blood cultures, sputum cultures, and urine cultures. We'll also order a pro calcitonin on this patient. D-dimer today is 1.81. Blood sugar is 150. WBC count is 15 hemoglobin is 13.7. LDH is coming down to 1221, and C-reactive protein is a bit elevated at 5.4. Chest x- ray continues to show bilateral patchy infiltrates, slightly improved, but that is mostly because of high PEEP Patient was reevaluated today on 03/03/2021, remains in the ICU, intubated and mechanically ventilated. Sedated and paralyzed with Nimbex. He is on assist control rate of 3 to tidal volume 420 FiO2 85% and PEEP of 16 his ABG showed a pO2 of 66 pCO2 of 55 pH of 7.39. Patient is noted to have some minimal air leak from the endotracheal tube, and respiratory will adjust endotracheal tube and possibly put somewhere in the cough. His ileus seems to be improving. Patient had 2 bowel movements last night. And he will be restarted today on trickle feeding. A shunt remains on IV fluid at 75 mL per hour in the formal 0.9 normal saline. Propofol at 70% and all at one except 1.5. Chest x-ray is showing minimal improvement in his bilateral patchy infiltrates. WBC count is 15.3 hemoglobin is 12.2 hematocrit is 38.2 electrolytes are normal, renal profile is normal LDH is 1034. C-reactive protein is 2.8. Objective - Vital Signs Vital signs: Vital Signs Temp 97.9 F 03/03/21 12:00 Pulse 96 03/03/21 12:00 Resp 32 H 03/03/21 12:00 BP 110/72 03/02/21 20:00 Pulse Ox 91 L 03/03/21 12:00 Intake & Output 03/02/21 03/03/21 03/03/21 18:59 06:59 18:59 Intake Total 7939.581 0038.630 375 Output Total 1325 385 290 Balance 749.632 2755.630 85 Weight 129.4 kg 129.4 kg Intake: IV 975 1825 375 Sodium Chloride 0.9% 1, 975 1825 375 000 ml @ 75 mls/hr IV . [id number] Rx#:[id number] Intake, IV Titration 909.590 767.630 Amount ACETAMINOPHEN IV (For NPO 100 ) 1,000 mg In Empty Bag 1 bag @ 400 mls/hr IVPB Q6HR [facility] Rx#:[id number] Cisatracurium 200 mg In 70.586 179.761 Sodium Chloride 0.9% 180 ml @ 1 MCG/KG/MIN 7.756 mls/hr IV .Q24H [facility] Rx#: [id number] Piperacillin-Tazobactam 3 200 .375 gm In Sodium Chloride 0.9% 100 ml @ 25 mls/hr IVPB Q8HR [facility] Rx# :[id number] fentaNYL (PF). 1,000 mcg 67.932 100 In Sodium Chloride 0.9% 80 ml @ Per Protocol IV . Q0M [facility] Rx#:[id number] propofoL 1,000 mg In 471.072 487.869 Empty Bag 1 bag @ Titrate IV .Q0M [facility] Rx#: [id number] Output: Gastric Drainage 150 Urine 1175 385 290 Other: Voiding Method Indwelling Catheter Indwelling Catheter Indwelling Catheter # Bowel Movements 1 ABP, PAP, CO, CI - Last Documented Arterial Blood Pressure 134/60 - Exam Physical Exam: Revealed 55-year-old white male sedated, paralyzed, and mechanically ventilated.. Head: Atraumatic, normocephalic. Endotracheal tube and orogastric tube are intact. HEENT:[Neck is supple.] [No neck masses.] [No thyromegaly.] [No JVD.] Dry mucous membranes noted. Chest: [Symmetrical chest expansion, crackles on the rhonchi noted at the bases. Cardiac Exam: [Normal S1 and S2, no S3 gallop, no murmur.] Abdomen: Slightly distended, , nontender, no megaly, no rebound, no guarding, diminished bowel sounds. Extremities: [No clubbing, no edema, no cyanosis.] Neurological Exam: Could not assess, patient is sedated and paralyzed. Psychiatric: Could not assess.. Skin: Multiple tattoos all over, otherwise unremarkable. Lymphatics: No lymphadenopathy. - Labs CBC & Chem 7: 03/03/21 04:15 03/03/21 04:15 Labs: Abnormal Lab Results - Last 24 Hours (Table) 03/02/21 03/02/21 03/03/21 Range/Units 09:45 17:47 01:10 WBC (3.8-10.6) k/uL RBC (4.30-5.90) m/uL Hgb (13.0-17.5) gm/dL Hct (39.0-53.0) % Neutrophils # (1.3-7.7) k/uL Lymphocytes # (1.0-4.8) k/uL ABG pCO2 (35-45) mmHg ABG pO2 (83-108) mmHg ABG HCO3 (21-25) mmol/L ABG Total CO2 (19-24) mmol/L ABG O2 Saturation (94-97) % Sodium (137-145) mmol/L Carbon Dioxide (22-30) mmol/L Glucose (74-99) mg/dL POC Glucose (mg/dL) 123 H 126 H (75-99) mg/dL Calcium (8.4-10.2) mg/dL Lactate Dehydrogenase (313-618) U/L C-Reactive Protein (<1.0) mg/dL Total Protein (6.3-8.2) g/dL Albumin (3.5-5.0) g/dL Procalcitonin 1.34 H (0.02-0.09) ng/mL 03/03/21 03/03/21 03/03/21 Range/Units 04:15 04:15 05:37 WBC 15.3 H (3.8-10.6) k/uL RBC 4.28 L (4.30-5.90) m/uL Hgb 12.2 L (13.0-17.5) gm/dL Hct 38.2 L (39.0-53.0) % Neutrophils # 14.3 H (1.3-7.7) k/uL Lymphocytes # 0.6 L (1.0-4.8) k/uL ABG pCO2 55 H (35-45) mmHg ABG pO2 66 L (83-108) mmHg ABG HCO3 33 H (21-25) mmol/L ABG Total CO2 35 H (19-24) mmol/L ABG O2 Saturation 93.2 L (94-97) % Sodium 134 L (137-145) mmol/L Carbon Dioxide 31 H (22-30) mmol/L Glucose 113 H (74-99) mg/dL POC Glucose (mg/dL) (75-99) mg/dL Calcium 7.4 L (8.4-10.2) mg/dL Lactate Dehydrogenase 1034 H (313-618) U/L C-Reactive Protein 2.8 H (<1.0) mg/dL Total Protein 5.0 L (6.3-8.2) g/dL Albumin 2.6 L (3.5-5.0) g/dL Procalcitonin (0.02-0.09) ng/mL 03/03/21 03/03/21 Range/Units 05:39 12:08 WBC (3.8-10.6) k/uL RBC (4.30-5.90) m/uL Hgb (13.0-17.5) gm/dL Hct (39.0-53.0) % Neutrophils # (1.3-7.7) k/uL Lymphocytes # (1.0-4.8) k/uL ABG pCO2 (35-45) mmHg ABG pO2 (83-108) mmHg ABG HCO3 (21-25) mmol/L ABG Total CO2 (19-24) mmol/L ABG O2 Saturation (94-97) % Sodium (137-145) mmol/L Carbon Dioxide (22-30) mmol/L Glucose (74-99) mg/dL POC Glucose (mg/dL) 113 H 112 H (75-99) mg/dL Calcium (8.4-10.2) mg/dL Lactate Dehydrogenase (313-618) U/L C-Reactive Protein (<1.0) mg/dL Total Protein (6.3-8.2) g/dL Albumin (3.5-5.0) g/dL Procalcitonin (0.02-0.09) ng/mL Microbiology - Last 24 Hours (Table) 03/02/21 09:53 Blood Culture - Preliminary Blood No Growth after 24 hours 03/02/21 09:45 Blood Culture - Preliminary Blood No Growth after 24 hours 03/01/21 22:11 Gram Stain - Preliminary Sputum Sputum Culture - Preliminary Assessment and Plan Assessment: Impression: Acute hypoxic respiratory failure secondary to COVID-19 pneumonia, requiring intubation mechanical ventilation. On 03/01/2021. Acute ileus requiring decompression with nasogastric tube, improving today, had bowel movements yesterday, and we will plan trickie feeds. Elevated inflammatory markers secondary to above. Lymphopenia secondary to above. Elevated liver enzymes secondary to above. Resolved. Hyponatremia resolved Recommendation: Continue ventilatory support. Decrease FiO2 to 80% and titrate accordingly but leave PEEP alone the same to day. At 16. Enteral feeding to be started today. Continue the COVID-19 cocktail including Decadron and Lovenox. Patient was on of the window for REM. Continue albuterol. Continue Zosyn. Blood cultures and sputum cultures are nondiagnostic so far, remain negative. Patient did receive toci before he was transferred to the ICU. Prognosis is guarded, We'll continue to follow. Critical care time is over 30 minutes. Time with Patient: Greater than 30
--- NOTE | 2021-03-03 15:35 | P.PN ---
Subjective Progress Note Date: 03/03/21 Osmar Drummond, is a 35-year-old male patient of Dr. Hdz, who presented to [facility] emergency room with a chief complaint of worsening shortness of breath and chest tightness. Patient was also having persistent cough his symptoms started 12 days ago however he had severe worsening of his symptoms in the last 3 days. He stated that last Saturday he was tested for COVID-19, results came back positive on Saturday. He was evaluated in the emergency room vital examination on presentation revealed a temperature of 103 pulse 92 respiration 18 blood pressure 124/77 pulse ox 92% on room air. White blood count was 4.2 hemoglobin 15.4 platelet count 161 sodium 125 potassium 3.9 chloride 88 calcium 7.8 BUN 8 creatinine 0.94 AST 98 ALT 57 LDH 1623 C-reactive protein 41.1 EKG done in the emergency room revealed normal sinus rhythm normal EKG, chest x-ray done in the emergency room revealed patchy bilateral infiltrates compatible with multifocal pneumonia no pneumothorax. Patient was admitted to medical floor pulmonary consultation was requested. On 02/25/2021 patient was seen and examined on the medical floor he is alert and oriented 3 in no distress, he is still complaining of cough and shortness of breath otherwise he denies any complaints there is no fever or chills no hea dache or dizziness no chest pain no nausea or vomiting no abdominal pain no diarrhea no blood in the stools no burning was urination no frequency or urgency and no hematuria. On 02/26/2021 patient was seen and examined on the medical floor he is alert and oriented 3 in no distress he seems to be worse today he is having more tachycardia and tachypnea, his temperature is 99.8 pulse ox is down to 82% on 15 L high flow cannula inflammatory markers are up his LDH is 1735 up from 1440 yesterday C-reactive protein is up to 7.2 up from 6 yesterday d-dimer is up to 1.21 up from 0.77 yesterday, at this time patient is maintained on inhaled bronchodilators, IV Decadron, subcu Lovenox,, repeat chest x-ray done today reveals by basilar infiltrates and opacities consistent with COVID-19 infection without any significant change from previous x-ray on 02/27/2021 patient was seen and examined on the medical floor, he is alert and oriented 3 in no apparent distress he is reporting some improvement in his shortness of breath, vital exam reveals a temperature of 99.1 pulse 102 respiration 20 blood pressure 121/84 pulse ox 87% on 15 L high flow cannula, white blood count is 6.2 hemoglobin 13.8 platelet count 262 d-dimer 1.51 sodium 127 potassium 4.0 chloride 94 CO2 25 BUN 13 creatinine 0.81 LDH 1969 C-reactive protein up to 8.9, patient is complaining of cough and shortness of breath otherwise he denies any complaints there is no fever or chills no headache or dizziness no chest pain no nausea or vomiting no abdominal pain no diarrhea no blood in the stools no burning with urination no frequency or urgency and no hematuria On 02/28/2021 patient was seen and examined on the medical floor he is alert and oriented 3 in no apparent distress, he is still maintained on Airvo with FiO2 of 90% his temperature is 98.7 pulse 116 respiration 28 blood pressure 145/81 pulse ox 93% he is complaining of shortness of breath and occasional cough otherwise he denies any complaints there is no fever or chills no headache or dizziness no chest pain no nausea or vomiting no abdominal pain no diarrhea no blood in the stools no burning with urination no frequency or urgency and no hematuria. On 03/01/2021 patient was seen and examined in the ICU he is intubated sedated maintained on mechanical ventilation air this morning patient was having worsening shortness of breath and decreased O2 sat duration despite Airvo, he was transferred to ICU and was intubated. Currently patient is on assist c ontrol tidal volume of 400 rate of 30 FiO2 100% and PEEP of 10 arterial blood gas reveals a pH of 7.24 pCO2 55 PO2 78 sodium is 127 LDH 2034 C-reactive protein 4.5 pulmonary are following closely On 03/02/2021 patient was seen and examined in the ICU he is intubated sedated maintained on mechanical ventilation air this morning patient was having worsening shortness of breath and decreased O2 sat duration despite Airvo, he was transferred to ICU and was intubated. Currently patient is on assist control tidal volume of 400 rate of 30 FiO2 100% and PEEP of 10 arterial blood gas reveals a pH of 7.24 pCO2 55 PO2 78 sodium is 127 LDH 203 C-reactive protein 4.5 pulmonary are following closely. Patient has evidence of ileus, he is maintained on NG tube to suction, surgical consultation was requested. On 03/03/2021 patient was seen and examined in the ICU he is intubated sedated maintained on mechanical ventilation air this morning patient was having worsening shortness of breath and decreased O2 sat duration despite Airvo, he was transferred to ICU and was intubated. Currently patient is on assist control tidal volume of 420 rate of 30 FiO2 85 % and PEEP of 16 arterial blood gas reveals a pH of 7.39 pCO2 55 PO2 66 sodium is 134 LDH 2035 C-reactive protein 4.5 pulmonary are following closely. Patient has evidence of ileus, he is maintained on NG tube to suction, surgical consultation was requested. Objective - Vital Signs Vital signs: Vital Signs Temp 97.9 F 03/03/21 12:00 Pulse 102 H 03/03/21 13:00 Resp 32 H 03/03/21 13:00 BP 110/72 03/02/21 20:00 Pulse Ox 95 03/03/21 13:00 Intake & Output 03/02/21 03/03/21 03/03/21 18:59 06:59 18:59 Intake Total 9665.581 6093.630 450 Output Total 1325 385 290 Balance 165.841 6474.630 160 Weight 129.4 kg 129.4 kg Intake: IV 975 1825 450 Sodium Chloride 0.9% 1, 975 1825 450 000 ml @ 75 mls/hr IV . [id number] [facility] Rx#:[id number] Intake, IV Titration 909.590 767.630 Amount ACETAMINOPHEN IV (For NPO 100 ) 1,000 mg In Empty Bag 1 bag @ 400 mls/hr IVPB Q6HR PRN Rx#:[id number] Cisatracurium 200 mg In 70.586 179.761 Sodium Chloride 0.9% 180 ml @ 1 MCG/KG/MIN 7.756 mls/hr IV .Q24H [facility] Rx#: [id number] Piperacillin-Tazobactam 3 200 .375 gm In Sodium Chloride 0.9% 100 ml @ 25 mls/hr IVPB Q8HR [facility] Rx# :[id number] fentaNYL (PF). 1,000 mcg 67.932 100 In Sodium Chloride 0.9% 80 ml @ Per Protocol IV . Q0M [facility] Rx#:[id number] propofoL 1,000 mg In 471.072 487.869 Empty Bag 1 bag @ Titrate IV .Q0M [facility] Rx#: [id number] Output: Gastric Drainage 150 Urine 1175 385 290 Other: Voiding Method Indwelling Catheter Indwelling Catheter Indwelling Catheter # Bowel Movements 1 ABP, PAP, CO, CI - Last Documented Arterial Blood Pressure 145/65 - Exam In general patient is intubated sedated maintained on mechanical ventilation HEENT head normocephalic and atraumatic Neck is supple no JVD no goiter no lymphadenopathy Chest exam reveals a few scattered crackles no wheezing Cardiac exam reveals regular heart sounds no gallops no murmurs Abdomen is soft nontender no organomegaly with normal bowel sounds Extremity exam reveals no edema no cyanosis or clubbing Neurological examination reveals no gross focal deficit - Labs CBC & Chem 7: 03/03/21 04:15 03/03/21 04:15 Labs: Abnormal Lab Results - Last 24 Hours (Table) 03/02/21 03/02/21 03/03/21 Range/Units 09:45 17:47 01:10 WBC (3.8-10.6) k/uL RBC (4.30-5.90) m/uL Hgb (13.0-17.5) gm/dL Hct (39.0-53.0) % Neutrophils # (1.3-7.7) k/uL Lymphocytes # (1.0-4.8) k/uL ABG pCO2 (35-45) mmHg ABG pO2 (83-108) mmHg ABG HCO3 (21-25) mmol/L ABG Total CO2 (19-24) mmol/L ABG O2 Saturation (94-97) % Sodium (137-145) mmol/L Carbon Dioxide (22-30) mmol/L Glucose (74-99) mg/dL POC Glucose (mg/dL) 123 H 126 H (75-99) mg/dL Calcium (8.4-10.2) mg/dL Lactate Dehydrogenase (313-618) U/L C-Reactive Protein (<1.0) mg/dL Total Protein (6.3-8.2) g/dL Albumin (3.5-5.0) g/dL Procalcitonin 1.34 H (0.02-0.09) ng/mL 03/03/21 03/03/2121 Range/Units 04:15 04:15 05:37 WBC 15.3 H (3.8-10.6) k/uL RBC 4.28 L (4.30-5.90) m/uL Hgb 12.2 L (13.0-17.5) gm/dL Hct 38.2 L (39.0-53.0) % Neutrophils # 14.3 H (1.3-7.7) k/uL Lymphocytes # 0.6 L (1.0-4.8) k/uL ABG pCO2 55 H (35-45) mmHg ABG pO2 66 L (83-108) mmHg ABG HCO3 33 H (21-25) mmol/L ABG Total CO2 35 H (19-24) mmol/L ABG O2 Saturation 93.2 L (94-97) % Sodium 134 L (137-145) mmol/L Carbon Dioxide 31 H (22-30) mmol/L Glucose 113 H (74-99) mg/dL POC Glucose (mg/dL) (75-99) mg/dL Calcium 7.4 L (8.4-10.2) mg/dL Lactate Dehydrogenase 1034 H (313-618) U/L C-Reactive Protein 2.8 H (<1.0) mg/dL Total Protein 5.0 L (6.3-8.2) g/dL Albumin 2.6 L (3.5-5.0) g/dL Procalcitonin (0.02-0.09) ng/mL 03/03/21 03/03/21 Range/Units 05:39 12:08 WBC (3.8-10.6) k/uL RBC (4.30-5.90) m/uL Hgb (13.0-17.5) gm/dL Hct (39.0-53.0) % Neutrophils # (1.3-7.7) k/uL Lymphocytes # (1.0-4.8) k/uL ABG pCO2 (35-45) mmHg ABG pO2 (83-108) mmHg ABG HCO3 (21-25) mmol/L ABG Total CO2 (19-24) mmol/L ABG O2 Saturation (94-97) % Sodium (137-145) mmol/L Carbon Dioxide (22-30) mmol/L Glucose (74-99) mg/dL POC Glucose (mg/dL) 113 H 112 H (75-99) mg/dL Calcium (8.4-10.2) mg/dL Lactate Dehydrogenase (313-618) U/L C-Reactive Protein (<1.0) mg/dL Total Protein (6.3-8.2) g/dL Albumin (3.5-5.0) g/dL Procalcitonin (0.02-0.09) ng/mL Microbiology - Last 24 Hours (Table) 03/02/21 09:53 Blood Culture - Preliminary Blood No Growth after 24 hours 03/02/21 09:45 Blood Culture - Preliminary Blood No Growth after 24 hours Assessment and Plan Plan: 1. Acute COVID-19 pneumonia patient started on IV Decadron and subcu Lovenox pulmonary consultation was requested, patient developed acute hypoxic respiratory failure requiring intubation and mechanical ventilation 2. Underlying history of asthma 3. Underlying history of morbid obesity 4. Hyponatremia, patient started on IV normal months leading 5. Elevated liver enzymes, will monitor closely 6. Evidence of ileus patient is maintained on NG tube to suction, surgical consultation following At this time patient was seen and examined in the emergency room he was started on subcu Lovenox and IV dexamethasone, vitamin C and vitamin D and zinc supplements he was also started on inhaled bronchodilators patient will be admitted to medical floor pulmonary consultation was requested. Patient was seen by pulmonary he is maintained on oxygen supplements, IV Decadron, subcu Lovenox, patient has improved since yesterday
[2021-03-04 00:04] LABS: Glucose,Whole Blood 109 mg/dL (75-99)
[2021-03-04] MEDS: PIPERACILLIN-TAZOBACTAM 3.375 GM in SODIUM CHLORIDE 0.9% 100 ML IVPB SCH ×2 (00:14→08:21)
[2021-03-04] MEDS: METOCLOPRAMIDE 5 MG/ML 2 ML VIAL IVP SCH ×4 (00:14→18:42)
[2021-03-04] MEDS: fentaNYL (PF). 1,000 MCG in SODIUM CHLORIDE 0.9% 80 ML IV SCH ×3 (00:54→21:05)
[2021-03-04 05:26] LABS: Glucose,Whole Blood 88 mg/dL (75-99)
[2021-03-04 05:39] LABS: ABG Base Excess 9.2 mmol/L; ABG HCO3 34 mmol/L (21-25); ABG Oxygen Saturation 97.3 % (94-97); ABG PCO2 53 mmHg (35-45); ABG PH 7.41 (7.35-7.45); ABG PO2 89 mmHg (83-108); ABG TCO2 35 mmol/L (19-24); Allen Test Performed? Yes
[2021-03-04 05:42] LABS: Basophils % (A) 0 %; Eosinophils # (A) 0.1 k/uL (0-0.7); Eosinophils % (A) 1 %; HCT 34.2 % (39.0-53.0); HGB 11.7 gm/dL (13.0-17.5); Lymphocytes # (A) 0.8 k/uL (1.0-4.8); Lymphocytes % (A) 7 %; MCH 30.4 pg (25.0-35.0); MCHC 34.2 g/dL (31.0-37.0); MCV 88.7 fL (80.0-100.0); Mean Platelet Volume 7.9; Monocytes # (A) 0.3 k/uL (0-1.0); Monocytes % (A) 2 %; Neutrophils # (A) 10.5 k/uL (1.3-7.7); Neutrophils % (A) 89 %; Platelet Count 348 k/uL (150-450); RBC 3.85 m/uL (4.30-5.90); RDW 13.1 % (11.5-15.5); WBC 11.9 k/uL (3.8-10.6)
[2021-03-04 05:55] LABS: ALT 37 U/L (4-49); AST 44 U/L (17-59); African American GFR (CKD) >90 (>60 ml/min/1.73 sqM); Albumin 2.5 g/dL (3.5-5.0); Alkaline Phosphatase 64 U/L (38-126); Anion Gap -1 mmol/L; Blood Urea Nitrogen 20 mg/dL (9-20); Calcium 7.4 mg/dL (8.4-10.2); Carbon Dioxide 34 mmol/L (22-30); Chloride 103 mmol/L (98-107); Glucose 89 mg/dL (74-99); Non-African American GFR(CKD) >90 (>60 ml/min/1.73 sqM); Potassium 4.9 mmol/L (3.5-5.1); Sodium 136 mmol/L (137-145); Total Bilirubin 0.5 mg/dL (0.2-1.3); Total Protein 4.9 g/dL (6.3-8.2)
[2021-03-04 05:57] LABS: C Reactive Protein 1.6 mg/dL (<1.0)
--- NOTE | 2021-03-04 07:10 | XR ---
EXAMINATION TYPE: XR chest 1V portable DATE OF EXAM: 03/04/2021 COMPARISON: Prior chest x-ray 03/03/2021 HISTORY: Intubated TECHNIQUE: Single frontal view of the chest is obtained. FINDINGS: Endotracheal tube, orogastric tube, left-sided PICC line are all again noted and are overl bhavin appropriate positions. There is no evident pneumothorax or pleural effusion. Bilateral airspace disease is present, cardiac mediastinal silhouette is stable. IMPRESSION: Findings similar to prior exam, correlate for pneumonia.
[2021-03-04] MEDS: SODIUM CHLORIDE 0.9% 1,000 ML IV SCH ×2 (07:37→20:45)
[2021-03-04] MEDS: ALBUTEROL HFA INHALER INHALATION SCH ×4 (07:40→19:58)
[2021-03-04] MEDS: CHLORHEXIDINE GLUCONATE 15 ML CUP MUCOUS MEM SCH ×2 (08:20→20:41)
[2021-03-04] MEDS: bisacodyL 10 MG SUPP RECTAL SCH (08:21)
[2021-03-04] MEDS: ENOXAPARIN 60 MG/0.6 ML SYRINGE SQ SCH ×2 (08:21→22:04)
[2021-03-04] MEDS: DEXAMETHASONE SOD PHOSPHATE 10 MG/ML 1 ML VIAL IV SCH ×2 (08:21→20:41)
[2021-03-04] MEDS: PANTOPRAZOLE 40 MG/10 ML VIAL IV SCH (08:22)
--- NOTE | 2021-03-04 10:34 | P.PN ---
Subjective Progress Note Date: 03/04/21 Principal diagnosis: Acute hypoxic respiratory failure secondary to COVID-19 pneumonia. 35-year-old male admitted with a diagnosis of acute hypoxemic respiratory failure secondary to COVID 19 pneumonia. Chest x-ray showed multifocal bilateral infiltrates. In addition, the patient is morbidly obese, likely has sleep apnea syndrome, has lymphopenia, hyponatremia, and elevated liver function tests, all secondary to COVID 19. Currently, the patient's on saline at 75 mL an hour, and high flow nasal O2 at 15 L/m. White count 6.2, hemoglobin 13.8, hematocrit 39.0, and platelet count 262,000. D-dimer is 1.51. Sodium 127, potassium 4, chlorides 94, CO2 25, anion gap 8, BUN 13, creatinine 0.81. LDH is 1969, and C-reactive protein is 8.9. Chest x-ray shows bilateral infiltrates. Progress note dated 02/28/2021. 35-year-old male with a diagnosis of acute hypoxemic respiratory failure secondary to COVID 19 pneumonia. Chest x-ray showed multifocal bilateral infiltrates. The patient also has obesity, sleep apnea syndrome, lymphopenia, hyponatremic, and liver function abnormalities, all consistent with coronavirus infection. Yesterday, the patient was on high flow nasal O2, and nonrebreather mask. This morning, the respiratory therapist switch him over to AIRVO, at 60 L/m and 90% FiO2. The patient is not receiving any IV fluids. D-dimer is 4.62. Patient was reevaluated today on 03/01/2021, patient remains on selective, however I was called to see the patient. He seems to be in severe respiratory distress. Patient is on BiPAP, his respiratory rate is 16 times per minute, patient is anxious, and his O2 saturation is 92%. Clearly the patient is in severe respiratory distress, chest x-ray showed bilateral patchy infiltrates, and a dilated stomach, and some dilated bowel loops. Could not place a nasogastric tube because the patient was on BiPAP, and noted to be desaturating easily. As soon as I evaluated the patient, I recommended immediate transfer to the ICU, intubation mechanical ventilation. Patient will be placed on tidal volume is 400, assist control rate of 30, 100% FiO2, and PEEP of 10. Follow-up chest x-ray will be done post intubation, and a nasogastric tube will also be placed as soon as the patient is intubated. We are in the process of transferring the patient now to the ICU for intubation mechanical ventilation, as his pulmonary status seems to be deteriorating quite fast. ABG from earlier today showed a pO2 of 78 pCO2 of 55 pH of 7.24, and this was on BiPAP 100% FiO2. This ABG was done at 8:15 AM. Inflammatory markers noted to be on the rise, LDH is 2035, and C-reactive protein is 4.5. The CBC count is 19.9 hemoglobin is 15.5. D-dimer is 4.62. Sodium is low at 127 potassium is 5.0. Renal profile is normal. Patient was reevaluated today on 03/02/2021, remains in the ICU, patient had to be intubated yesterday. His pulmonary status deteriorated in spite of being maximized on BiPAP. Hence I recommended intubation and mechanical ventilation. He is now on assist control rate of 3 to tidal volume is 420 FiO2 is 95% and PEEP of 16. ABG showed a pO2 of 87 pCO2 of 59 pH of 7.31. Peak airway pressure is 34, static pressure is 32. Patient is on propofol at 60 Nimbex at 1.5, I recommended adding fentany propofol and Nimbex. Patient was intubated on 03/01. He has a low-grade fever, I would place the patient empirically on Zosyn, patient will be pancultured today. Including blood cultures, sputum cultures, and urine cultures. We'll also order a pro calcitonin on this patient. D-dimer today is 1.81. Blood sugar is 150. WBC count is 15 hemoglobin is 13.7. LDH is coming down to 1221, and C-reactive protein is a bit elevated at 5.4. Chest x- ray continues to show bilateral patchy infiltrates, slightly improved, but that is mostly because of high PEEP Patient was reevaluated today on 03/03/2021, remains in the ICU, intubated and mechanically ventilated. Sedated and paralyzed with Nimbex. He is on assist control rate of 3 to tidal volume 420 FiO2 85% and PEEP of 16 his ABG showed a pO2 of 66 pCO2 of 55 pH of 7.39. Patient is noted to have some minimal air leak from the endotracheal tube, and respiratory will adjust endotracheal tube and possibly put somewhere in the cough. His ileus seems to be improving. Patient had 2 bowel movements last night. And he will be restarted today on trickle feeding. A shunt remains on IV fluid at 75 mL per hour in the formal 0.9 normal saline. Propofol at 70% and all at one except 1.5. Chest x-ray is showing minimal improvement in his bilateral patchy infiltrates. WBC count is 15.3 hemoglobin is 12.2 hematocrit is 38.2 electrolytes are normal, renal profile is normal LDH is 1034. C-reactive protein is 2.8. Patient was reevaluated today on 03/04/2021, patient remains in the ICU, intubated and mechanically ventilated. He is on assist control rate of 3 to tidal volume is 420 FiO2 85% PEEP of 6 however I cut down his FiO2 and I plan to maintain O2 saturation just at 90% if possible. I did cut down his FiO2 to 75%. The PEEP the same at 16. Patient remains on propofol 70 Nimbex 1.5 fentanyl and 0.9 normal saline at 75 mL per hour. WBC count is 11.9 hemoglobin is 11.7. ABG showed a pO2 of 89 pCO2 53 pH of 7.41. Electrodes are normal bicarb is 34, renal profile is normal. X-ray continues to show bilateral bibasilar interst itial infiltrates consistent with COVID-19 pneumonia. LDH is down to 951. C- reactive protein is 1.6. Liver enzymes are relatively normal. D-dimer is 2.0. Objective - Vital Signs Vital signs: Vital Signs Temp 98.9 F 03/04/21 08:00 Pulse 93 03/04/21 10:00 Resp 32 H 03/04/21 10:00 BP 110/72 03/02/21 20:00 Pulse Ox 92 L 03/04/21 10:00 Intake & Output 03/03/21 03/04/21 03/04/21 18:59 06:59 18:59 Intake Total 5656.377 9220.933 310 Output Total 470 665 275 Balance 752.632 986.933 35 Weight 129.4 kg 130 kg Intake: IV 825 900 300 Sodium Chloride 0.9% 1, 825 900 300 000 ml @ 75 mls/hr IV . [id number] [facility] Rx#:[id number] Intake, IV Titration 397.632 641.933 Amount Cisatracurium 200 mg In 200 Sodium Chloride 0.9% 180 ml @ 1 MCG/KG/MIN 7.756 mls/hr IV .Q24H [facility] Rx#: [id number] fentaNYL (PF). 1,000 mcg 197.632 82.512 In Sodium Chloride 0.9% 80 ml @ Per Protocol IV . Q0M [facility] Rx#:[id number] propofoL 1,000 mg In 200 359.421 Empty Bag 1 bag @ Titrate IV .Q0M [facility] Rx#: [id number] Tube Feeding 110 10 Output: Urine 470 665 275 Other: Voiding Method Indwelling Catheter Indwelling Catheter Indwelling Catheter ABP, PAP, CO, CI - Last Documented Arterial Blood Pressure 150/70 - Exam Physical Exam: Revealed 55-year-old white male sedated, paralyzed, and mechanically ventilated.. Head: Atraumatic, normocephalic. Endotracheal tube and orogastric tube are intact. HEENT:[Neck is supple.] [No neck masses.] [No thyromegaly.] [No JVD.] Dry mucous membranes noted. Chest: [Symmetrical chest expansion, crackles on the rhonchi noted at the bases. Cardiac Exam: [Normal S1 and S2, no S3 gallop, no murmur.] Abdomen: Slightly distended, , nontender, no megaly, no rebound, no guarding, diminished bowel sounds. Extremities: [No clubbing, no edema, no cyanosis.] Neurological Exam: Could not assess, patient is sedated and paralyzed. Psychiatric: Could not assess.. Skin: Multiple tattoos all over, otherwise unremarkable. Lymphatics: No lymphadenopathy. - Labs CBC & Chem 7: 03/04/21 05:30 03/04/21 05:30 Labs: Abnormal Lab Results - Last 24 Hours (Table) 03/03/21 03/03/21 03/04/21 Range/Units 04:15 12:08 00:02 WBC (3.8-10.6) k/uL RBC (4.30-5.90) m/uL Hgb (13.0-17.5) gm/dL Hct (39.0-53.0) % Neutrophils # (1.3-7.7) k/uL Lymphocytes # (1.0-4.8) k/uL D-Dimer (<0.60) mg/L FEU ABG pCO2 (35-45) mmHg ABG HCO3 (21-25) mmol/L ABG Total CO2 (19-24) mmol/L ABG O2 Saturation (94-97) % Sodium (137-145) mmol/L Carbon Dioxide (22-30) mmol/L POC Glucose (mg/dL) 112 H 109 H (75-99) mg/dL Calcium (8.4-10.2) mg/dL Ferritin 850.0 H (22.0-322.0) ng/mL Lactate Dehydrogenase (313-618) U/L C-Reactive Protein (<1.0) mg/dL Total Protein (6.3-8.2) g/dL Albumin (3.5-5.0) g/dL 03/04/21 03/04/21 03/04/21 Range/Units 05:30 05:30 05:30 WBC 11.9 H (3.8-10.6) k/uL RBC 3.85 L (4.30-5.90) m/uL Hgb 11.7 L (13.0-17.5) gm/dL Hct 34.2 L (39.0-53.0) % Neutrophils # 10.5 H (1.3-7.7) k/uL Lymphocytes # 0.8 L (1.0-4.8) k/uL D-Dimer 2.00 H (<0.60) mg/L FEU ABG pCO2 (35-45) mmHg ABG HCO3 (21-25) mmol/L ABG Total CO2 (19-24) mmol/L ABG O2 Saturation (94-97) % Sodium 136 L (137-145) mmol/L Carbon Dioxide 34 H (22-30) mmol/L POC Glucose (mg/dL) (75-99) mg/dL Calcium 7.4 L (8.4-10.2) mg/dL Ferritin (22.0-322.0) ng/mL Lactate Dehydrogenase (313-618) U/L C-Reactive Protein (<1.0) mg/dL Total Protein 4.9 L (6.3-8.2) g/dL Albumin 2.5 L (3.5-5.0) g/dL 03/04/21 03/04/21 Range/Units 05:30 05:30 WBC (3.8-10.6) k/uL RBC (4.30-5.90) m/uL Hgb (13.0-17.5) gm/dL Hct (39.0-53.0) % Neutrophils # (1.3-7.7) k/uL Lymphocytes # (1.0-4.8) k/uL D-Dimer (<0.60) mg/L FEU ABG pCO2 53 H (35-45) mmHg ABG HCO3 34 H (21-25) mmol/L ABG Total CO2 35 H (19-24) mmol/L ABG O2 Saturation 97.3 H (94-97) % Sodium (137-145) mmol/L Carbon Dioxide (22-30) mmol/L POC Glucose (mg/dL) (75-99) mg/dL Calcium (8.4-10.2) mg/dL Ferritin (22.0-322.0) ng/mL Lactate Dehydrogenase 951 H (313-618) U/L C-Reactive Protein 1.6 H (<1.0) mg/dL Total Protein (6.3-8.2) g/dL Albumin (3.5-5.0) g/dL Microbiology - Last 24 Hours (Table) 03/01/21 22:11 Gram Stain - Preliminary Sputum Sputum Culture - Preliminary Presumptive Staph aureus Moraxella(branhamella) catarra 03/02/21 09:53 Blood Culture - Preliminary Blood No Growth after 24 hours 03/02/21 09:45 Blood Culture - Preliminary Blood No Growth after 24 hours Assessment and Plan Assessment: Impression: Acute hypoxic respiratory failure secondary to COVID-19 pneumonia, requiring intubation mechanical ventilation. On 03/01/2021. Acute ileus requiring decompression with nasogastric continues to improve, on enteral feeding. elevated liver enzymes secondary to above., improved. Hyponatremia resolved sputum Gram stain is positive for presumptive staph aureus and Moraxella catarrhalis. Recommendation: Continue ventilatory support. Decrease FiO2 to 75%, continue to titrate accordingly, will not titrate PEEP at this point yet. Continue enteral feeding. Continue COVID-19 cocktail including Decadron and Lovenox. Patient was on of the window for REM. Continue albuterol. Patient did receive toci before he was transferred to the ICU. change antibiotics to vancomycin and cefepime mostly to cover both including staph and Moraxella. We'll continue to follow. Critical care time is over 30 minutes. Time with Patient: Greater than 30
[2021-03-04] MEDS ORDERED: VANCOMYCIN IV PER PHARMACY 1 EACH MISC MISCELLANE PRN (10:35)
[2021-03-04] MEDS ORDERED: VANCOMYCIN 2,500 MG in SODIUM CHLORIDE 0.9% 500 ML 500 ML IVPB ONE (12:00)
--- NOTE | 2021-03-04 12:39 | P.PN ---
Progress Note - Text Progress Note Date: 03/04/21 Patient remains on ventilator on the ICU. He has tube feeds going at 10 mL an hour. Abdomen is soft without tenderness.. Slowly resolving ileus. Patient will continue to receive supportive care.
--- NOTE | 2021-03-04 13:10 | P.PN ---
Subjective Progress Note Date: 03/04/21 Osmar Drummond, is a 35-year-old male patient of Dr. Hdz, who presented to [facility] emergency room with a chief complaint of worsening shortness of breath and chest tightness. Patient was also having persistent cough his symptoms started 12 days ago however he had severe worsening of his symptoms in the last 3 days. He stated that last Saturday he was tested for COVID-19, results came back positive on Saturday. He was evaluated in the emergency room vital examination on presentation revealed a temperature of 103 pulse 92 respiration 18 blood pressure 124/77 pulse ox 92% on room air. White blood count was 4.2 hemoglobin 15.4 platelet count 161 sodium 125 potassium 3.9 chloride 88 calcium 7.8 BUN 8 creatinine 0.94 AST 98 ALT 57 LDH 1623 C-reactive protein 41.1 EKG done in the emergency room revealed normal sinus rhythm normal EKG, chest x-ray done in the emergency room revealed patchy bilateral infiltrates compatible with multifocal pneumonia no pneumothorax. Patient was admitted to medical floor pulmonary consultation was requested. On 02/25/2021 patient was seen and examined on the medical floor he is alert and oriented 3 in no distress, he is still complaining of cough and shortness of breath otherwise he denies any complaints there is no fever or chills no hea dache or dizziness no chest pain no nausea or vomiting no abdominal pain no diarrhea no blood in the stools no burning was urination no frequency or urgency and no hematuria. On 02/26/2021 patient was seen and examined on the medical floor he is alert and oriented 3 in no distress he seems to be worse today he is having more tachycardia and tachypnea, his temperature is 99.8 pulse ox is down to 82% on 15 L high flow cannula inflammatory markers are up his LDH is 1735 up from 1440 yesterday C-reactive protein is up to 7.2 up from 6 yesterday d-dimer is up to 1.21 up from 0.77 yesterday, at this time patient is maintained on inhaled bronchodilators, IV Decadron, subcu Lovenox,, repeat chest x-ray done today reveals by basilar infiltrates and opacities consistent with COVID-19 infection without any significant change from previous x-ray on 02/27/2021 patient was seen and examined on the medical floor, he is alert and oriented 3 in no apparent distress he is reporting some improvement in his shortness of breath, vital exam reveals a temperature of 99.1 pulse 102 respiration 20 blood pressure 121/84 pulse ox 87% on 15 L high flow cannula, white blood count is 6.2 hemoglobin 13.8 platelet count 262 d-dimer 1.51 sodium 127 potassium 4.0 chloride 94 CO2 25 BUN 13 creatinine 0.81 LDH 1969 C-reactive protein up to 8.9, patient is complaining of cough and shortness of breath otherwise he denies any complaints there is no fever or chills no headache or dizziness no chest pain no nausea or vomiting no abdominal pain no diarrhea no blood in the stools no burning with urination no frequency or urgency and no hematuria On 02/28/2021 patient was seen and examined on the medical floor he is alert and oriented 3 in no apparent distress, he is still maintained on Airvo with FiO2 of 90% his temperature is 98.7 pulse 116 respiration 28 blood pressure 145/81 pulse ox 93% he is complaining of shortness of breath and occasional cough otherwise he denies any complaints there is no fever or chills no headache or dizziness no chest pain no nausea or vomiting no abdominal pain no diarrhea no blood in the stools no burning with urination no frequency or urgency and no hematuria. On 03/01/2021 patient was seen and examined in the ICU he is intubated sedated maintained on mechanical ventilation air this morning patient was having worsening shortness of breath and decreased O2 sat duration despite Airvo, he was transferred to ICU and was intubated. Currently patient is on assist c ontrol tidal volume of 400 rate of 30 FiO2 100% and PEEP of 10 arterial blood gas reveals a pH of 7.24 pCO2 55 PO2 78 sodium is 127 LDH 2034 C-reactive protein 4.5 pulmonary are following closely On 03/02/2021 patient was seen and examined in the ICU he is intubated sedated maintained on mechanical ventilation air this morning patient was having worsening shortness of breath and decreased O2 sat duration despite Airvo, he was transferred to ICU and was intubated. Currently patient is on assist control tidal volume of 400 rate of 30 FiO2 100% and PEEP of 10 arterial blood gas reveals a pH of 7.24 pCO2 55 PO2 78 sodium is 127 LDH 203 C-reactive protein 4.5 pulmonary are following closely. Patient has evidence of ileus, he is maintained on NG tube to suction, surgical consultation was requested. On 03/03/2021 patient was seen and examined in the ICU he is intubated sedated maintained on mechanical ventilation air this morning patient was having worsening shortness of breath and decreased O2 sat duration despite Airvo, he was transferred to ICU and was intubated. Currently patient is on assist control tidal volume of 420 rate of 30 FiO2 85 % and PEEP of 16 arterial blood gas reveals a pH of 7.39 pCO2 55 PO2 66 sodium is 134 LDH 2034 C-reactive protein 4.5 pulmonary are following closely. Patient has evidence of ileus, he is maintained on NG tube to suction, surgical consultation was requested. On 03/04/2021 patient was seen and examined in the ICU he is intubated sedated maintained on mechanical ventilation air this morning patient was having worsening shortness of breath and decreased O2 sat duration despite Airvo, he was transferred to ICU and was intubated. Currently patient is on assist control tidal volume of 420 rate of 30 FiO2 85 % and PEEP of 16 arterial blood gas reveals a pH of 7.41 pCO2 53 PO2 89 sodium is 136 D-Dimer 2.0 pulmonary are following closely. Objective - Vital Signs Vital signs: Vital Signs Temp 97.0 F L 03/04/21 04:00 Pulse 86 03/04/21 07:00 Resp 32 H 03/04/21 07:00 BP 110/72 03/02/21 20:00 Pulse Ox 93 L 03/04/21 07:00 Intake & Output 03/03/21 03/04/21 03/04/21 18:59 06:59 18:59 Intake Total 1646.579 3835.933 85 Output Total 470 665 150 Balance 752.632 986.933 -65 Weight 129.4 kg 130 kg Intake: IV 825 900 75 Sodium Chloride 0.9% 1, 825 900 75 000 ml @ 75 mls/hr IV . [id number] [facility]I Rx#:[id number] Intake, IV Titration 397.632 641.933 Amount Cisatracurium 200 mg In 200 Sodium Chloride 0.9% 180 ml @ 1 MCG/KG/MIN 7.756 mls/hr IV .Q24H [facility]I Rx#: [id number] fentaNYL (PF). 1,000 mcg 197.632 82.512 In Sodium Chloride 0.9% 80 ml @ Per Protocol IV . Q0M [facility]I Rx#:[id number] propofoL 1,000 mg In 200 359.421 Empty Bag 1 bag @ Titrate IV .Q0M [facility] Rx#: [id number] Tube Feeding 110 10 Output: Urine 470 665 150 Other: Voiding Method Indwelling Catheter Indwelling Catheter ABP, PAP, CO, CI - Last Documented Arterial Blood Pressure 111/56 - Exam In general patient is intubated sedated maintained on mechanical ventilation HEENT head normocephalic and atraumatic Neck is supple no JVD no goiter no lymphadenopathy Chest exam reveals a few scattered crackles no wheezing Cardiac exam reveals regular heart sounds no gallops no murmurs Abdomen is soft nontender no organomegaly with normal bowel sounds Extremity exam reveals no edema no cyanosis or clubbing Neurological examination reveals no gross focal deficit - Labs CBC & Chem 7: 03/04/21 05:30 03/04/21 05:30 Labs: Abnormal Lab Results - Last 24 Hours (Table) 03/03/21 03/03/21 03/04/21 Range/Units 04:15 12:08 00:02 WBC (3.8-10.6) k/uL RBC (4.30-5.90) m/uL Hgb (13.0-17.5) gm/dL Hct (39.0-53.0) % Neutrophils # (1.3-7.7) k/uL Lymphocytes # (1.0-4.8) k/uL D-Dimer (<0.60) mg/L FEU ABG pCO2 (35-45) mmHg ABG HCO3 (21-25) mmol/L ABG Total CO2 (19-24) mmol/L ABG O2 Saturation (94-97) % Sodium (137-145) mmol/L Carbon Dioxide (22-30) mmol/L POC Glucose (mg/dL) 112 H 109 H (75-99) mg/dL Calcium (8.4-10.2) mg/dL Ferritin 850.0 H (22.0-322.0) ng/mL Lactate Dehydrogenase (313-618) U/L C-Reactive Protein (<1.0) mg/dL Total Protein (6.3-8.2) g/dL Albumin (3.5-5.0) g/dL 03/04/21 03/04/21 03/04/21 Range/Units 05:30 05:30 05:30 WBC 11.9 H (3.8-10.6) k/uL RBC 3.85 L (4.30-5.90) m/uL Hgb 11.7 L (13.0-17.5) gm/dL Hct 34.2 L (39.0-53.0) % Neutrophils # 10.5 H (1.3-7.7) k/uL Lymphocytes # 0.8 L (1.0-4.8) k/uL D-Dimer 2.00 H (<0.60) mg/L FEU ABG pCO2 (35-45) mmHg ABG HCO3 (21-25) mmol/L ABG Total CO2 (19-24) mmol/L ABG O2 Saturation (94-97) % Sodium 136 L (137-145) mmol/L Carbon Dioxide 34 H (22-30) mmol/L POC Glucose (mg/dL) (75-99) mg/dL Calcium 7.4 L (8.4-10.2) mg/dL Ferritin (22.0-322.0) ng/mL Lactate Dehydrogenase (313-618) U/L C-Reactive Protein (<1.0) mg/dL Total Protein 4.9 L (6.3-8.2) g/dL Albumin 2.5 L (3.5-5.0) g/dL 03/04/21 03/04/21 Range/Units 05:30 05:30 WBC (3.8-10.6) k/uL RBC (4.30-5.90) m/uL Hgb (13.0-17.5) gm/dL Hct (39.0-53.0) % Neutrophils # (1.3-7.7) k/uL Lymphocytes # (1.0-4.8) k/uL D-Dimer (<0.60) mg/L FEU ABG pCO2 53 H (35-45) mmHg ABG HCO3 34 H (21-25) mmol/L ABG Total CO2 35 H (19-24) mmol/L ABG O2 Saturation 97.3 H (94-97) % Sodium (137-145) mmol/L Carbon Dioxide (22-30) mmol/L POC Glucose (mg/dL) (75-99) mg/dL Calcium (8.4-10.2) mg/dL Ferritin (22.0-322.0) ng/mL Lactate Dehydrogenase 951 H (313-618) U/L C-Reactive Protein 1.6 H (<1.0) mg/dL Total Protein (6.3-8.2) g/dL Albumin (3.5-5.0) g/dL Microbiology - Last 24 Hours (Table) 03/01/21 22:11 Gram Stain - Preliminary Sputum Sputum Culture - Preliminary Presumptive Staph aureus Moraxella(branhamella) catarra 03/02/21 09:53 Blood Culture - Preliminary Blood No Growth after 24 hours 03/02/21 09:45 Blood Culture - Preliminary Blood No Growth after 24 hours Assessment and Plan Plan: 1. Acute COVID-19 pneumonia patient started on IV Decadron and subcu Lovenox pulmonary consultation was requested, patient developed acute hypoxic respiratory failure requiring intubation and mechanical ventilation 2. Underlying history of asthma 3. Underlying history of morbid obesity 4. Hyponatremia, patient started on IV normal months leading 5. Elevated liver enzymes, will monitor closely 6. Evidence of ileus patient is maintained on NG tube to suction, surgical consultation following At this time patient was seen and examined in the emergency room he was started on subcu Lovenox and IV dexamethasone, vitamin C and vitamin D and zinc supplements he was also started on inhaled bronchodilators patient will be admitted to medical floor pulmonary consultation was requested. Patient was seen by pulmonary he is maintained on oxygen supplements, IV Decadron, subcu Lovenox, patient has improved since yesterday
[2021-03-04] MEDS: CISATRACURIUM 200 MG in SODIUM CHLORIDE 0.9% 180 ML IV SCH (14:36)
[2021-03-04] MEDS ORDERED: VANCOMYCIN 2,250 MG in SODIUM CHLORIDE 0.9% 500 ML 500 ML IVPB SCH (20:00)
[2021-03-05] MEDS: METOCLOPRAMIDE 5 MG/ML 2 ML VIAL IVP SCH ×5 (00:05→23:49)
[2021-03-05 00:16] LABS: Glucose,Whole Blood 99 mg/dL (75-99)
[2021-03-05] MEDS ORDERED: VANCOMYCIN 2,250 MG in SODIUM CHLORIDE 0.9% 500 ML 500 ML IVPB SCH (02:00)
[2021-03-05] MEDS: fentaNYL (PF). 1,000 MCG in SODIUM CHLORIDE 0.9% 80 ML IV SCH ×2 (02:47→18:36)
[2021-03-05 04:36] LABS: Potassium 4.9 mmol/L (3.5-5.1)
[2021-03-05 04:40] LABS: African American GFR (CKD) >90 (>60 ml/min/1.73 sqM); Anion Gap 2 mmol/L; Blood Urea Nitrogen 20 mg/dL (9-20); C Reactive Protein 1.2 mg/dL (<1.0); Calcium 7.5 mg/dL (8.4-10.2); Carbon Dioxide 31 mmol/L (22-30); Chloride 101 mmol/L (98-107); Glucose 91 mg/dL (74-99); LDH 1034 U/L (313-618); Non-African American GFR(CKD) >90 (>60 ml/min/1.73 sqM); Sodium 134 mmol/L (137-145)
[2021-03-05 04:46] LABS: Basophils % (A) 0 %; Eosinophils # (A) 0.1 k/uL (0-0.7); Eosinophils % (A) 1 %; HCT 34.6 % (39.0-53.0); HGB 11.3 gm/dL (13.0-17.5); Lymphocytes % (A) 9 %; MCHC 32.5 g/dL (31.0-37.0); MCV 89.2 fL (80.0-100.0); Mean Platelet Volume 7.9; Monocytes # (A) 0.2 k/uL (0-1.0); Monocytes % (A) 2 %; Neutrophils # (A) 10.2 k/uL (1.3-7.7); Neutrophils % (A) 88 %; Platelet Count 305 k/uL (150-450); RBC 3.88 m/uL (4.30-5.90); RDW 13.6 % (11.5-15.5); WBC 11.6 k/uL (3.8-10.6)
[2021-03-05] MEDS: CISATRACURIUM 200 MG in SODIUM CHLORIDE 0.9% 180 ML IV SCH (04:46)
[2021-03-05 05:33] LABS: Glucose,Whole Blood 83 mg/dL (75-99)
[2021-03-05 06:07] LABS: ABG Base Excess 7.6 mmol/L; ABG HCO3 32 mmol/L (21-25); ABG Oxygen Saturation 96.7 % (94-97); ABG PCO2 48 mmHg (35-45); ABG PH 7.43 (7.35-7.45); ABG PO2 82 mmHg (83-108); ABG TCO2 33 mmol/L (19-24); Allen Test Performed? Yes
--- NOTE | 2021-03-05 07:25 | XR ---
EXAMINATION TYPE: XR chest 1V portable DATE OF EXAM: 03/05/2021 COMPARISON: Chest x-ray 03/04/2021 HISTORY: Intubated TECHNIQUE: Single frontal view of the chest is obtained. FINDINGS: Endotracheal tube, orogastric tube, left-sided PICC line are overlying appropriate positio ns. Bilateral airspace disease shows a similar appearance. There is no evident pneumothorax or pleura l effusion. Cardiac mediastinal silhouette is stable. There are overlying artifacts. IMPRESSION: Similar to prior exam, correlate for pneumonia.
[2021-03-05] MEDS: ALBUTEROL HFA INHALER INHALATION SCH ×4 (07:35→20:36)
[2021-03-05] MEDS: CHLORHEXIDINE GLUCONATE 15 ML CUP MUCOUS MEM SCH ×2 (09:28→20:40)
[2021-03-05] MEDS: PANTOPRAZOLE 40 MG/10 ML VIAL IV SCH (09:28)
[2021-03-05] MEDS: DEXAMETHASONE SOD PHOSPHATE 10 MG/ML 1 ML VIAL IV SCH ×2 (09:28→20:41)
[2021-03-05] MEDS: bisacodyL 10 MG SUPP RECTAL SCH (09:28)
[2021-03-05] MEDS: ENOXAPARIN 60 MG/0.6 ML SYRINGE SQ SCH ×2 (10:06→20:40)
[2021-03-05 11:30] LABS: Glucose,Whole Blood 97 mg/dL (75-99)
--- NOTE | 2021-03-05 11:56 | P.PN ---
Subjective Progress Note Date: 03/05/21 Principal diagnosis: Acute hypoxic respiratory failure secondary to COVID-19 pneumonia. 35-year-old male admitted with a diagnosis of acute hypoxemic respiratory failure secondary to COVID 19 pneumonia. Chest x-ray showed multifocal bilateral infiltrates. In addition, the patient is morbidly obese, likely has sleep apnea syndrome, has lymphopenia, hyponatremia, and elevated liver function tests, all secondary to COVID 19. Currently, the patient's on saline at 75 mL an hour, and high flow nasal O2 at 15 L/m. White count 6.2, hemoglobin 13.8, hematocrit 39.0, and platelet count 262,000. D-dimer is 1.51. Sodium 127, potassium 4, chlorides 94, CO2 25, anion gap 8, BUN 13, creatinine 0.81. LDH is 1969, and C-reactive protein is 8.9. Chest x-ray shows bilateral infiltrates. Progress note dated 02/28/2021. 35-year-old male with a diagnosis of acute hypoxemic respiratory failure secondary to COVID 19 pneumonia. Chest x-ray showed multifocal bilateral infiltrates. The patient also has obesity, sleep apnea syndrome, lymphopenia, hyponatremic, and liver function abnormalities, all consistent with coronavirus infection. Yesterday, the patient was on high flow nasal O2, and nonrebreather mask. This morning, the respiratory therapist switch him over to AIRVO, at 60 L/m and 90% FiO2. The patient is not receiving any IV fluids. D-dimer is 4.62. Patient was reevaluated today on 03/01/2021, patient remains on selective, however I was called to see the patient. He seems to be in severe respiratory distress. Patient is on BiPAP, his respiratory rate is 16 times per minute, patient is anxious, and his O2 saturation is 92%. Clearly the patient is in severe respiratory distress, chest x-ray showed bilateral patchy infiltrates, and a dilated stomach, and some dilated bowel loops. Could not place a nasogastric tube because the patient was on BiPAP, and noted to be desaturating easily. As soon as I evaluated the patient, I recommended immediate transfer to the ICU, intubation mechanical ventilation. Patient will be placed on tidal volume is 400, assist control rate of 30, 100% FiO2, and PEEP of 10. Follow-up chest x-ray will be done post intubation, and a nasogastric tube will also be placed as soon as the patient is intubated. We are in the process of transferring the patient now to the ICU for intubation mechanical ventilation, as his pulmonary status seems to be deteriorating quite fast. ABG from earlier today showed a pO2 of 78 pCO2 of 55 pH of 7.24, and this was on BiPAP 100% FiO2. This ABG was done at 8:15 AM. Inflammatory markers noted to be on the rise, LDH is 2035, and C-reactive protein is 4.5. The CBC count is 19.9 hemoglobin is 15.5. D-dimer is 4.62. Sodium is low at 127 potassium is 5.0. Renal profile is normal. Patient was reevaluated today on 03/02/2021, remains in the ICU, patient had to be intubated yesterday. His pulmonary status deteriorated in spite of being maximized on BiPAP. Hence I recommended intubation and mechanical ventilation. He is now on assist control rate of 3 to tidal volume is 420 FiO2 is 95% and PEEP of 16. ABG showed a pO2 of 87 pCO2 of 59 pH of 7.31. Peak airway pressure is 34, static pressure is 32. Patient is on propofol at 60 Nimbex at 1.5, I recommended adding fentany propofol and Nimbex. Patient was intubated on 03/01. He has a low-grade fever, I would place the patient empirically on Zosyn, patient will be pancultured today. Including blood cultures, sputum cultures, and urine cultures. We'll also order a pro calcitonin on this patient. D-dimer today is 1.81. Blood sugar is 150. WBC count is 15 hemoglobin is 13.7. LDH is coming down to 1221, and C-reactive protein is a bit elevated at 5.4. Chest x- ray continues to show bilateral patchy infiltrates, slightly improved, but that is mostly because of high PEEP Patient was reevaluated today on 03/03/2021, remains in the ICU, intubated and mechanically ventilated. Sedated and paralyzed with Nimbex. He is on assist control rate of 3 to tidal volume 420 FiO2 85% and PEEP of 16 his ABG showed a pO2 of 66 pCO2 of 55 pH of 7.39. Patient is noted to have some minimal air leak from the endotracheal tube, and respiratory will adjust endotracheal tube and possibly put somewhere in the cough. His ileus seems to be improving. Patient had 2 bowel movements last night. And he will be restarted today on trickle feeding. A shunt remains on IV fluid at 75 mL per hour in the formal 0.9 normal saline. Propofol at 70% and all at one except 1.5. Chest x-ray is showing minimal improvement in his bilateral patchy infiltrates. WBC count is 15.3 hemoglobin is 12.2 hematocrit is 38.2 electrolytes are normal, renal profile is normal LDH is 1034. C-reactive protein is 2.8. Patient was reevaluated today on 03/04/2021, patient remains in the ICU, intubated and mechanically ventilated. He is on assist control rate of 3 to tidal volume is 420 FiO2 85% PEEP of 6 however I cut down his FiO2 and I plan to maintain O2 saturation just at 90% if possible. I did cut down his FiO2 to 75%. The PEEP the same at 16. Patient remains on propofol 70 Nimbex 1.5 fentanyl and 0.9 normal saline at 75 mL per hour. WBC count is 11.9 hemoglobin is 11.7. ABG showed a pO2 of 89 pCO2 53 pH of 7.41. Electrodes are normal bicarb is 34, renal profile is normal. X-ray continues to show bilateral bibasilar interst itial infiltrates consistent with COVID-19 pneumonia. LDH is down to 951. C- reactive protein is 1.6. Liver enzymes are relatively normal. D-dimer is 2.0. Patient was reevaluated today on 03/05/2021, patient remains in the ICU intubated, mechanically ventilated, sedated and paralyzed. He is on assist control rate of 3 to tidal volume is 420 FiO2 was 75% and I cut it down to 65% and PEEP at 16. ABG this morning showed a pO2 of 82 pCO2 of 48 pH of 7.43. Patient remains on enteral feeding/trickle feeding vital H3 at 10 mL per hour. His also on propofol at 50 mcg/kg/m, Nimbex at 2 mcg/kg/m, fentanyl 20 mcg/kg/h, and IV fluid at 85 ML per hour 0.9 normal saline. Chest x-ray continues to show by basilar rates consistent with COVID-19 pneumonia, slightly improving, could be because of relatively high PEEP. His inflammatory markers are also improving, LDH is 1034, C-reactive protein is 1.2. D-dimer is down to 1.85. CBC is relatively normal. Sputum cultures have been positive for Moraxella catarrhalis and MSSA. This will be treated with cefazolin and doxycycline. Objective - Vital Signs Vital signs: Vital Signs Temp 100.2 F H 03/05/21 04:00 Pulse 78 03/05/21 07:00 Resp 34 H 03/05/21 07:00 BP 110/72 03/02/21 20:00 Pulse Ox 92 L 03/05/21 07:00 Intake & Output 03/04/21 03/05/21 03/05/21 18:59 06:59 18:59 Intake Total 1410 2918.679 85 Output Total 655 570 45 Balance 755 2348.679 40 Weight 133.7 kg Intake: IV 900 1900 75 Sodium Chloride 0.9% 1, 900 900 75 000 ml @ 75 mls/hr IV . [id number] Rx#:[id number] Vancomycin 2,250 mg In 1000 Sodium Chloride 0.9% 500 ml 500 ml @ 167 mls/hr IVPB Q8H [facility]I Rx#: [id number] Intake, IV Titration 500 718.679 Amount Cisatracurium 200 mg In 200 189.002 Sodium Chloride 0.9% 180 ml @ 1 MCG/KG/MIN 7.756 mls/hr IV .Q24H [facility] Rx#: [id number] fentaNYL (PF). 1,000 mcg 200 73.872 In Sodium Chloride 0.9% 80 ml @ Per Protocol IV . Q0M [facility] Rx#:[id number] propofoL 1,000 mg In 100 455.805 Empty Bag 1 bag @ Titrate IV .Q0M [facility] Rx#: [id number] Oral 90 Tube Feeding 10 120 10 Other 90 Output: Urine 655 570 45 Other: Voiding Method Indwelling Catheter Indwelling Catheter # Bowel Movements 1 ABP, PAP, CO, CI - Last Documented Arterial Blood Pressure 108/53 - Exam Physical Exam: Revealed 35-year-old white male sedated, paralyzed, and mechanically ventilated.. Head: Atraumatic, normocephalic. Endotracheal tube and orogastric tube are intact. HEENT:[Neck is supple.] [No neck masses.] [No thyromegaly.] [No JVD.] Moist mucous membranes.. Chest: [Symmetrical chest expansion minimal crackles at the bases. No rhonchi, no wheezes. Cardiac Exam: [Normal S1 and S2, no S3 gallop, no murmur.] Abdomen: Slightly distended, , nontender, no megaly, no rebound, no guarding, diminished bowel sounds. Extremities: [No clubbing, no edema, no cyanosis.] Neurological Exam: Could not assess, patient is sedated and paralyzed. Psychiatric: Could not assess.. Skin: Multiple tattoos all over, otherwise unremarkable. Lymphatics: No lymphadenopathy. - Labs CBC & Chem 7: 03/05/21 04:00 03/05/21 04:00 Labs: Abnormal Lab Results - Last 24 Hours (Table) 03/05/21 03/05/21 03/05/21 Range/Units 04:00 04:00 04:00 WBC 11.6 H (3.8-10.6) k/uL RBC 3.88 L (4.30-5.90) m/uL Hgb 11.3 L (13.0-17.5) gm/dL Hct 34.6 L (39.0-53.0) % Neutrophils # 10.2 H (1.3-7.7) k/uL D-Dimer 1.85 H (<0.60) mg/L FEU ABG pCO2 (35-45) mmHg ABG pO2 (83-108) mmHg ABG HCO3 (21-25) mmol/L ABG Total CO2 (19-24) mmol/L Sodium 134 L (137-145) mmol/L Carbon Dioxide 31 H (22-30) mmol/L Calcium 7.5 L (8.4-10.2) mg/dL Lactate Dehydrogenase 1034 H (313-618) U/L C-Reactive Protein 1.2 H (<1.0) mg/dL 03/05/21 Range/Units 05:55 WBC (3.8-10.6) k/uL RBC (4.30-5.90) m/uL Hgb (13.0-17.5) gm/dL Hct (39.0-53.0) % Neutrophils # (1.3-7.7) k/uL D-Dimer (<0.60) mg/L FEU ABG pCO2 48 H (35-45) mmHg ABG pO2 82 L (83-108) mmHg ABG HCO3 32 H (21-25) mmol/L ABG Total CO2 33 H (19-24) mmol/L Sodium (137-145) mmol/L Carbon Dioxide (22-30) mmol/L Calcium (8.4-10.2) mg/dL Lactate Dehydrogenase (313-618) U/L C-Reactive Protein (<1.0) mg/dL Microbiology - Last 24 Hours (Table) 03/01/21 22:11 Gram Stain - Final Sputum Sputum Culture - Final Staphylococcus aureus Moraxella(branhamella) catarra 03/02/21 09:53 Blood Culture - Preliminary Blood No Growth after 48 hours 03/02/21 09:45 Blood Culture - Preliminary Blood No Growth after 48 hours Assessment and Plan Assessment: Impression: Acute hypoxic respiratory failure secondary to COVID-19 pneumonia, requiring intubation mechanical ventilation. On 03/01/2021. Acute ileus requiring decompression with nasogastric continues to improve, on enteral feeding. elevated liver enzymes secondary to above., improved. Hyponatremia resolved sputum Gram stain is positive for presumptive staph aureus and Moraxella catarrhalis. Remains on antibiotics. Patient is on Rocephin. His staph aureus is MSSA Recommendation: Continue ventilatory support. Decrease FiO2 to 65%. Keep the PEEP at 16 for now. Continue enteral feeding. Continue COVID-19 cocktail including Decadron and Lovenox. Patient was beyond the window for REM Continue albuterol. Patient did receive toci before he was transferred to the ICU. Discontinue vancomycin. Discontinue Rocephin. We'll place the patient on cefazolin and on doxycycline. We'll continue to follow. Critical care time is over 30 minutes. Time with Patient: Greater than 30
--- NOTE | 2021-03-05 15:27 | P.PN ---
Progress Note - Text Progress Note Date: 03/05/21 Patient remains clinically unchanged. He has had a bowel movement per nursing staff. On exam her lesser stable. Abdomen soft. Resolving ileus. Patient will have his tube feeds advanced to goal.
[2021-03-05] MEDS: SODIUM CHLORIDE 0.9% 1,000 ML IV SCH (16:00)
[2021-03-05] MEDS ORDERED: PIPERACILLIN-TAZOBACTAM 3.375 GM in SODIUM CHLORIDE 0.9% 100 ML IVPB SCH (16:00)
[2021-03-05 17:16] LABS: Glucose,Whole Blood 116 mg/dL (75-99)
[2021-03-05] MEDS: AMPICILLIN-SULBACTAM 1.5 GM in SODIUM CHLORIDE 0.9% 50 ML IVPB SCH ×3 (18:28→23:49)
[2021-03-05 23:58] LABS: Glucose,Whole Blood 99 mg/dL (75-99)
[2021-03-06] MEDS: fentaNYL (PF). 1,000 MCG in SODIUM CHLORIDE 0.9% 80 ML IV SCH ×4 (01:24→22:22)
[2021-03-06 05:10] LABS: African American GFR (CKD) >90 (>60 ml/min/1.73 sqM); Anion Gap 2 mmol/L; Blood Urea Nitrogen 21 mg/dL (9-20); Calcium 7.6 mg/dL (8.4-10.2); Carbon Dioxide 31 mmol/L (22-30); Chloride 100 mmol/L (98-107); Glucose 105 mg/dL (74-99); LDH 938 U/L (313-618); Non-African American GFR(CKD) >90 (>60 ml/min/1.73 sqM); Potassium 4.8 mmol/L (3.5-5.1); Sodium 133 mmol/L (137-145)
[2021-03-06 05:12] LABS: Basophils % (A) 0 %; Eosinophils % (A) 0 %; HGB 11.4 gm/dL (13.0-17.5); Lymphocytes % (A) 8 %; MCH 28.1 pg (25.0-35.0); MCHC 31.6 g/dL (31.0-37.0); MCV 89.1 fL (80.0-100.0); Mean Platelet Volume 7.9; Monocytes # (A) 0.3 k/uL (0-1.0); Monocytes % (A) 3 %; Neutrophils # (A) 10.5 k/uL (1.3-7.7); Neutrophils % (A) 88 %; Platelet Count 265 k/uL (150-450); RBC 4.04 m/uL (4.30-5.90); RDW 13.5 % (11.5-15.5); WBC 11.9 k/uL (3.8-10.6)
[2021-03-06 05:29] LABS: ABG Base Excess 8.1 mmol/L; ABG HCO3 32 mmol/L (21-25); ABG Oxygen Saturation 96.9 % (94-97); ABG PCO2 49 mmHg (35-45); ABG PH 7.43 (7.35-7.45); ABG PO2 88 mmHg (83-108); ABG TCO2 34 mmol/L (19-24); Allen Test Performed? Yes
[2021-03-06 05:50] LABS: C Reactive Protein 0.8 mg/dL (<1.0)
[2021-03-06] MEDS: SODIUM CHLORIDE 0.9% 1,000 ML IV SCH ×2 (05:50→13:03)
[2021-03-06] MEDS: AMPICILLIN-SULBACTAM 1.5 GM in SODIUM CHLORIDE 0.9% 50 ML IVPB SCH ×3 (05:52→18:24)
[2021-03-06] MEDS: METOCLOPRAMIDE 5 MG/ML 2 ML VIAL IVP SCH ×3 (05:55→18:25)
[2021-03-06] MEDS: CISATRACURIUM 200 MG in SODIUM CHLORIDE 0.9% 180 ML IV SCH ×2 (06:41→20:45)
[2021-03-06] MEDS: ALBUTEROL HFA INHALER INHALATION SCH ×4 (07:26→19:12)
[2021-03-06] MEDS: DEXAMETHASONE SOD PHOSPHATE 10 MG/ML 1 ML VIAL IV SCH ×2 (07:49→20:02)
[2021-03-06] MEDS: bisacodyL 10 MG SUPP RECTAL SCH (07:49)
[2021-03-06] MEDS: CHLORHEXIDINE GLUCONATE 15 ML CUP MUCOUS MEM SCH ×2 (07:49→20:02)
[2021-03-06] MEDS: ENOXAPARIN 60 MG/0.6 ML SYRINGE SQ SCH (07:50)
[2021-03-06] MEDS: PANTOPRAZOLE 40 MG/10 ML VIAL IV SCH (07:50)
[2021-03-06] MEDS ORDERED: VANCOMYCIN TROUGH DUE 1 EACH MISC MISCELLANE ONE (09:00)
--- NOTE | 2021-03-06 09:04 | XR ---
EXAMINATION TYPE: XR chest 1V portable DATE OF EXAM: 03/06/2021 COMPARISON: Chest x-ray 03/05/2021 HISTORY: Intubated TECHNIQUE: Single frontal view of the chest is obtained. FINDINGS: Endotracheal tube, orogastric tube, left-sided PICC line are overlying appropriate positio ns as on prior exam. There is no evident pneumothorax or pleural effusion. Bilateral airspace disease appears somewhat less confluent. Cardiac mediastinal silhouette is stable. IMPRESSION: There may be some slight interval improvement in aeration.
[2021-03-06] MEDS: ENOXAPARIN 40 MG/0.4 ML SYRINGE SQ SCH (09:16)
--- NOTE | 2021-03-06 11:09 | P.PN ---
<Virginia Virk - Last Filed: 03/06/21 11:02> Subjective Progress Note Date: 03/06/21 CHIEF COMPLAINT: Covid pneumonia HISTORY OF PRESENT ILLNESS: Surgical service is following regards to patient's ileus. Patient remains in the ICU and intubated. Per nursing patient did have a bowel movement yesterday and it was soft in consistency. He is receiving tube feedings. He is currently at 30 mL per hour. Patient did have a temp of 100.2 last night this morning 99.8 WBC 11.9 hemoglobin 11.4 PHYSICAL EXAM: VITAL SIGNS: Reviewed. GENERAL: Well-developed in no acute distress. HEENT: No sclera icterus. Extraocular movements grossly intact. Moist buccal mucosa. Head is atraumatic, normocephalic. ABDOMEN: Abdomen is softer NEUROLOGIC: Intubated and sedated ASSESSMENT: 1. Ileus resolving 2. Acute hypoxic respiratory failure secondary to COVID-19 pneumonia PLAN: -Continue Reglan and Dulcolax suppositories daily -Continue titration of tube feedings to goal -Continue ICU management -Continue supportive care Physician Ampoule Sealer note has been reviewed by physician. Signing provider agrees with the documented findings, assessment, and plan of care. Objective - Vital Signs Vital signs: Vital Signs Temp 98.9 F 03/06/21 08:00 Pulse 83 03/06/21 10:00 Resp 19 03/06/21 10:00 BP 110/72 03/02/21 20:00 Pulse Ox 86 L 03/06/21 10:00 Intake & Output 03/05/21 03/06/21 03/06/21 18:59 06:59 18:59 Intake Total 7156.841 8657.685 393.888 Output Total 860 1145 60 Balance 482.075 434.685 333.888 Weight 132.6 kg Intake: IV 900 900 75 Sodium Chloride 0.9% 1, 900 900 75 000 ml @ 75 mls/hr IV . [id number] [facility] Rx#:[id number] Intake, IV Titration 432.075 369.685 288.888 Amount Cisatracurium 200 mg In 200 45.570 Sodium Chloride 0.9% 180 ml @ 1 MCG/KG/MIN 7.756 mls/hr IV .Q24H [facility] Rx#: [id number] fentaNYL (PF). 1,000 mcg 100 88.128 101.952 In Sodium Chloride 0.9% 80 ml @ Per Protocol IV . Q0M [facility] Rx#:[id number] propofoL 1,000 mg In 132.075 281.557 141.366 Empty Bag 1 bag @ Titrate IV .Q0M [facility] Rx#: [id number] Tube Feeding 10 220 30 Other 90 Output: Urine 860 1145 60 Other: Voiding Method Indwelling Catheter Indwelling Catheter # Voids 400 ABP, PAP, CO, CI - Last Documented Arterial Blood Pressure 139/58 - Labs CBC & Chem 7: 03/06/21 04:30 03/06/21 04:30 Labs: Abnormal Lab Results - Last 24 Hours (Table) 03/05/21 03/06/21 03/06/21 Range/Units 17:15 04:30 04:30 WBC 11.9 H (3.8-10.6) k/uL RBC 4.04 L (4.30-5.90) m/uL Hgb 11.4 L (13.0-17.5) gm/dL Hct 36.0 L (39.0-53.0) % Neutrophils # 10.5 H (1.3-7.7) k/uL D-Dimer (<0.60) mg/L FEU ABG pCO2 (35-45) mmHg ABG HCO3 (21-25) mmol/L ABG Total CO2 (19-24) mmol/L Sodium 133 L (137-145) mmol/L Carbon Dioxide 31 H (22-30) mmol/L BUN 21 H (9-20) mg/dL Creatinine 0.63 L (0.66-1.25) mg/dL Glucose 105 H (74-99) mg/dL POC Glucose (mg/dL) 116 H (75-99) mg/dL Calcium 7.6 L (8.4-10.2) mg/dL Lactate Dehydrogenase 938 H (313-618) U/L 03/06/21 03/06/21 Range/Units 04:30 05:23 WBC (3.8-10.6) k/uL RBC (4.30-5.90) m/uL Hgb (13.0-17.5) gm/dL Hct (39.0-53.0) % Neutrophils # (1.3-7.7) k/uL D-Dimer 1.70 H (<0.60) mg/L FEU ABG pCO2 49 H (35-45) mmHg ABG HCO3 32 H (21-25) mmol/L ABG Total CO2 34 H (19-24) mmol/L Sodium (137-145) mmol/L Carbon Dioxide (22-30) mmol/L BUN (9-20) mg/dL Creatinine (0.66-1.25) mg/dL Glucose (74-99) mg/dL POC Glucose (mg/dL) (75-99) mg/dL Calcium (8.4-10.2) mg/dL Lactate Dehydrogenase (313-618) U/L Microbiology - Last 24 Hours (Table) 03/02/21 09:53 Blood Culture - Preliminary Blood No Growth after 72 hours 03/02/21 09:45 Blood Culture - Preliminary Blood No Growth after 72 hours 03/01/21 22:11 Gram Stain - Final Sputum Sputum Culture - Final Staphylococcus aureus Moraxella(branhamella) catarra <Rk Vargas - Last Filed: 03/06/21 14:44> Subjective As above. Patient tolerating tube feeds at 40 mL per hour. Less distended on examination. We'll check repeat abdominal x-rays and if ileus radiographically resolved we'll sign off. Objective - Vital Signs Vital signs: Vital Signs Temp 99.3 F 03/06/21 12:00 Pulse 75 03/06/21 14:00 Resp 32 H 03/06/21 14:00 BP 110/72 03/02/21 20:00 Pulse Ox 95 03/06/21 14:00 Intake & Output 03/05/21 03/06/21 03/06/21 18:59 06:59 18:59 Intake Total 2885.035 8801.685 1117.076 Output Total 860 1145 705 Balance 482.075 434.685 412.076 Weight 132.6 kg Intake: IV 900 900 525 Sodium Chloride 0.9% 1, 900 900 525 000 ml @ 75 mls/hr IV . [id number] [facility] Rx#:[id number] Intake, IV Titration 432.075 369.685 382.076 Amount Cisatracurium 200 mg In 200 97.765 Sodium Chloride 0.9% 180 ml @ 1 MCG/KG/MIN 7.756 mls/hr IV .Q24H [facility] Rx#: [id number] fentaNYL (PF). 1,000 mcg 100 88.128 101.952 In Sodium Chloride 0.9% 80 ml @ Per Protocol IV . Q0M [facility] Rx#:[id number] propofoL 1,000 mg In 132.075 281.557 182.359 Empty Bag 1 bag @ Titrate IV .Q0M [facility] Rx#: [id number] Tube Feeding 10 220 210 Other 90 Output: Urine 860 1145 705 Other: Voiding Method Indwelling Catheter Indwelling Catheter Indwelling Catheter # Voids 400 ABP, PAP, CO, CI - Last Documented Arterial Blood Pressure 109/46 - Labs CBC & Chem 7: 03/06/21 04:30 03/06/21 04:30 Labs: Abnormal Lab Results - Last 24 Hours (Table) 03/05/21 03/06/21 03/06/21 Range/Units 17:15 04:30 04:30 WBC 11.9 H (3.8-10.6) k/uL RBC 4.04 L (4.30-5.90) m/uL Hgb 11.4 L (13.0-17.5) gm/dL Hct 36.0 L (39.0-53.0) % Neutrophils # 10.5 H (1.3-7.7) k/uL D-Dimer (<0.60) mg/L FEU ABG pCO2 (35-45) mmHg ABG HCO3 (21-25) mmol/L ABG Total CO2 (19-24) mmol/L Sodium 133 L (137-145) mmol/L Carbon Dioxide 31 H (22-30) mmol/L BUN 21 H (9-20) mg/dL Creatinine 0.63 L (0.66-1.25) mg/dL Glucose 105 H (74-99) mg/dL POC Glucose (mg/dL) 116 H (75-99) mg/dL Calcium 7.6 L (8.4-10.2) mg/dL Lactate Dehydrogenase 938 H (313-618) U/L 03/06/21 03/06/21 03/06/21 Range/Units 04:30 05:23 12:09 WBC (3.8-10.6) k/uL RBC (4.30-5.90) m/uL Hgb (13.0-17.5) gm/dL Hct (39.0-53.0) % Neutrophils # (1.3-7.7) k/uL D-Dimer 1.70 H (<0.60) mg/L FEU ABG pCO2 49 H (35-45) mmHg ABG HCO3 32 H (21-25) mmol/L ABG Total CO2 34 H (19-24) mmol/L Sodium (137-145) mmol/L Carbon Dioxide (22-30) mmol/L BUN (9-20) mg/dL Creatinine (0.66-1.25) mg/dL Glucose (74-99) mg/dL POC Glucose (mg/dL) 129 H (75-99) mg/dL Calcium (8.4-10.2) mg/dL Lactate Dehydrogenase (313-618) U/L Microbiology - Last 24 Hours (Table) 03/02/21 09:45 Blood Culture - Preliminary Blood No Growth after 96 hours 03/02/21 09:53 Blood Culture - Preliminary Blood No Growth after 96 hours Assessment and Plan (1) Ileus Current Visit: Yes Status: Acute Code(s): K56.7 - ILEUS, UNSPECIFIED SNOMED Code(s): 423750865
--- NOTE | 2021-03-06 11:24 | P.PN ---
Subjective Progress Note Date: 03/06/21 Principal diagnosis: Shortness of breath. Progress note dated 02/27/2021. 35-year-old male admitted with a diagnosis of acute hypoxemic respiratory failure secondary to COVID 19 pneumonia. Chest x-ray showed multifocal bilateral infiltrates. In addition, the patient is morbidly obese, likely has sleep apnea syndrome, has lymphopenia, hyponatremia, and elevated liver function tests, all secondary to COVID 19. Currently, the patient's on saline at 75 mL an hour, and high flow nasal O2 at 15 L/m. White count 6.2, hemoglobin 13.8, hematocrit 39.0, and platelet count 262,000. D-dimer is 1.51. Sodium 127, potassium 4, chlorides 94, CO2 25, anion gap 8, BUN 13, creatinine 0.81. LDH is 1969, and C-reactive protein is 8.9. Chest x-ray shows bilateral infiltrates. Progress note dated 02/28/2021. 35-year-old male with a diagnosis of acute hypoxemic respiratory failure secondary to COVID 19 pneumonia. Chest x-ray showed multifocal bilateral infiltrates. The patient also has obesity, sleep apnea syndrome, lymphopenia, hyponatremic, and liver function abnormalities, all consistent with coronavirus infection. Yesterday, the patient was on high flow nasal O2, and nonrebreather mask. This morning, the respiratory therapist switch him over to AIRVO, at 60 L/m and 90% FiO2. The patient is not receiving any IV fluids. D-dimer is 4.62. Progress note dated 03/06/2021. 35-year-old male that I saw last on February 28. The patient was admitted on the , and was intubated on the . I saw him last on February 28. He was admitted with a diagnosis of COVID 19 pneumonia. Currently, the patient's on the volume assist control mode, rate 32, tidal volume 420, FiO2 55% to be dropped down to 80%, and PEEP 16. Blood gases show a PaO2 of 88, PaCO2 49, pH is 7.42. The patient's currently on Nimbex at 2 mcg/kg/m, propofol at 40 mcg/kg/m, fentanyl at 1 mcg/kg/h, saline at 75 mL an hour, and vital high protein at 30 mL an hour, with a goal of 52. The patient will get a daily interruption of sedation today. He may benefit from a spontaneous breathing trial, we'll have to see. Currently, his PEEP values still quite high. White count 11.9, hemoglobin 11.4, hematocrit 36, and platelet count 265,000. D-dimer is 1.7. Sodium 133, potassium 4.8, chlorides 100, CO2 31, anion gap 2, BUN 21, and creatinine 0.63. LDH is 938, and C-reactive protein is 0.8. Chest x-ray shows diffuse bilateral infiltrates, which may be a bit improved. Objective - Vital Signs Vital signs: Vital Signs Temp 98.9 F 03/06/21 08:00 Pulse 83 03/06/21 10:00 Resp 19 03/06/21 10:00 BP 110/72 03/02/21 20:00 Pulse Ox 86 L 03/06/21 10:00 Intake & Output 03/05/21 03/06/21 03/06/21 18:59 06:59 18:59 Intake Total 7202.125 9079.685 393.888 Output Total 860 1145 60 Balance 482.075 434.685 333.888 Weight 132.6 kg Intake: IV 900 900 75 Sodium Chloride 0.9% 1, 900 900 75 000 ml @ 75 mls/hr IV . [id number] [facility] Rx#:[id number] Intake, IV Titration 432.075 369.685 288.888 Amount Cisatracurium 200 mg In 200 45.570 Sodium Chloride 0.9% 180 ml @ 1 MCG/KG/MIN 7.756 mls/hr IV .Q24H [facility] Rx#: [id number] fentaNYL (PF). 1,000 mcg 100 88.128 101.952 In Sodium Chloride 0.9% 80 ml @ Per Protocol IV . Q0M [facility] Rx#:[id number] propofoL 1,000 mg In 132.075 281.557 141.366 Empty Bag 1 bag @ Titrate IV .Q0M [facility] Rx#: [id number] Tube Feeding 10 220 30 Other 90 Output: Urine 860 1145 60 Other: Voiding Method Indwelling Catheter Indwelling Catheter # Voids 400 ABP, PAP, CO, CI - Last Documented Arterial Blood Pressure 139/58 - Exam Sedated, and paralyzed, with an orally placed endotracheal tube. Saturations are in the high 80s and low 90s. HEENT examination is grossly unremarkable. Neck supple. Full range of motion. No adenopathy thyromegaly or neck vein distention. Cardiovascular examination reveals regular rhythm rate. S1-S2 normal. No S3 or S4. No discernible murmur noted. Heart sounds are distant. Heart rate is 83 bpm. Lungs reveal diffuse bilateral rhonchi. No wheezes. Breath sounds equal bilaterally. Some bibasilar crackles are noted. Abdomen soft bowel sounds are heard. No masses or tenderness. Extremities are intact. No cyanosis clubbing or edema. Skin is without rash or lesion. Neurologic examination cannot be adequately assessed as the patient's currently sedated and paralyzed. - Labs CBC & Chem 7: 03/06/21 04:30 03/06/21 04:30 Labs: Abnormal Lab Results - Last 24 Hours (Table) 03/05/21 03/06/21 03/06/21 Range/Units 17:15 04:30 04:30 WBC 11.9 H (3.8-10.6) k/uL RBC 4.04 L (4.30-5.90) m/uL Hgb 11.4 L (13.0-17.5) gm/dL Hct 36.0 L (39.0-53.0) % Neutrophils # 10.5 H (1.3-7.7) k/uL D-Dimer (<0.60) mg/L FEU ABG pCO2 (35-45) mmHg ABG HCO3 (21-25) mmol/L ABG Total CO2 (19-24) mmol/L Sodium 133 L (137-145) mmol/L Carbon Dioxide 31 H (22-30) mmol/L BUN 21 H (9-20) mg/dL Creatinine 0.63 L (0.66-1.25) mg/dL Glucose 105 H (74-99) mg/dL POC Glucose (mg/dL) 116 H (75-99) mg/dL Calcium 7.6 L (8.4-10.2) mg/dL Lactate Dehydrogenase 938 H (313-618) U/L 03/06/21 03/06/21 Range/Units 04:30 05:23 WBC (3.8-10.6) k/uL RBC (4.30-5.90) m/uL Hgb (13.0-17.5) gm/dL Hct (39.0-53.0) % Neutrophils # (1.3-7.7) k/uL D-Dimer 1.70 H (<0.60) mg/L FEU ABG pCO2 49 H (35-45) mmHg ABG HCO3 32 H (21-25) mmol/L ABG Total CO2 34 H (19-24) mmol/L Sodium (137-145) mmol/L Carbon Dioxide (22-30) mmol/L BUN (9-20) mg/dL Creatinine (0.66-1.25) mg/dL Glucose (74-99) mg/dL POC Glucose (mg/dL) (75-99) mg/dL Calcium (8.4-10.2) mg/dL Lactate Dehydrogenase (313-618) U/L Microbiology - Last 24 Hours (Table) 03/02/21 09:53 Blood Culture - Preliminary Blood No Growth after 72 hours 03/02/21 09:45 Blood Culture - Preliminary Blood No Growth after 72 hours 03/01/21 22:11 Gram Stain - Final Sputum Sputum Culture - Final Staphylococcus aureus Moraxella(branhamella) catarra Assessment and Plan Assessment: Acute hypoxemic respiratory failure, secondary to COVID 19 pneumonia/pneumonitis, requiring intubation and mechanical ventilation on 03/01/2021. Acute ileus, requiring decompression with nasogastric tube. Methicillin sensitive staph aureus and Moraxella catarrhalis tracheobronchitis/bronchopneumonia, currently on Unasyn. Morbid obesity. Possible sleep apnea syndrome. Lymphopenia. Elevated liver function tests, secondary to coronavirus infection. Hyponatremia, improved. Plan: Plan dated 02/27/2021. The patient remains on saline 75 mL an hour, and nasal O2, high flow, and 15 L/m. The patient remains on Decadron and Lovenox. The patient was outside the window for REM. We will continue to follow. Prognosis is guarded. No additional recommendations are made. Plan dated 02/28/2021. The patient was placed on AIRVO. He seems to be more comfortable on this modality of providing him oxygen therapy. The patient is not receiving any IV fluids. Currently his medications appear to be appropriate including albuterol inhaler, vitamin C, vitamin D3, Decadron, Lovenox, and zinc. Additional recomme ndations and suggestions are forthcoming. We will continue to follow. The patient was outside the window for REM. Plan dated 03/06/2021. Unfortunately, the patient required intubation and mechanical ventilation on March 01. The patient currently remains on the mechanical ventilator. It's too soon to consider tracheostomy and PEG tube placement. We will attempt a daily interruption of sedation. In addition, we'll attempt to reduce the PEEP levels. The patient remains on propofol, Nimbex, and fentanyl. We'll attempt to get him off the Nimbex first. We will continue to follow make recommendations were appropriate. Prognosis is guarded. The patient may end up requiring a tracheostomy tube and PEG tube Time with Patient: Greater than 30
[2021-03-06 12:10] LABS: Glucose,Whole Blood 129 mg/dL (75-99)
--- NOTE | 2021-03-06 12:18 | P.PN ---
Subjective Progress Note Date: 03/05/21 Osmar Drummond, is a 35-year-old male patient of Dr. Hdz, who presented to [facility] emergency room with a chief complaint of worsening shortness of breath and chest tightness. Patient was also having persistent cough his symptoms started 12 days ago however he had severe worsening of his symptoms in the last 3 days. He stated that last Saturday he was tested for COVID-19, results came back positive on Saturday. He was evaluated in the emergency room vital examination on presentation revealed a temperature of 103 pulse 92 respiration 18 blood pressure 124/77 pulse ox 92% on room air. White blood count was 4.2 hemoglobin 15.4 platelet count 161 sodium 125 potassium 3.9 chloride 88 calcium 7.8 BUN 8 creatinine 0.94 AST 98 ALT 57 LDH 1623 C-reactive protein 41.1 EKG done in the emergency room revealed normal sinus rhythm normal EKG, chest x-ray done in the emergency room revealed patchy bilateral infiltrates compatible with multifocal pneumonia no pneumothorax. Patient was admitted to medical floor pulmonary consultation was requested. On 02/25/2021 patient was seen and examined on the medical floor he is alert and oriented 3 in no distress, he is still complaining of cough and shortness of breath otherwise he denies any complaints there is no fever or chills no hea dache or dizziness no chest pain no nausea or vomiting no abdominal pain no diarrhea no blood in the stools no burning was urination no frequency or urgency and no hematuria. On 02/26/2021 patient was seen and examined on the medical floor he is alert and oriented 3 in no distress he seems to be worse today he is having more tachycardia and tachypnea, his temperature is 99.8 pulse ox is down to 82% on 15 L high flow cannula inflammatory markers are up his LDH is 1735 up from 1440 yesterday C-reactive protein is up to 7.2 up from 6 yesterday d-dimer is up to 1.21 up from 0.77 yesterday, at this time patient is maintained on inhaled bronchodilators, IV Decadron, subcu Lovenox,, repeat chest x-ray done today reveals by basilar infiltrates and opacities consistent with COVID-19 infection without any significant change from previous x-ray on 02/27/2021 patient was seen and examined on the medical floor, he is alert and oriented 3 in no apparent distress he is reporting some improvement in his shortness of breath, vital exam reveals a temperature of 99.1 pulse 102 respiration 20 blood pressure 121/84 pulse ox 87% on 15 L high flow cannula, white blood count is 6.2 hemoglobin 13.8 platelet count 262 d-dimer 1.51 sodium 127 potassium 4.0 chloride 94 CO2 25 BUN 13 creatinine 0.81 LDH 1969 C-reactive protein up to 8.9, patient is complaining of cough and shortness of breath otherwise he denies any complaints there is no fever or chills no headache or dizziness no chest pain no nausea or vomiting no abdominal pain no diarrhea no blood in the stools no burning with urination no frequency or urgency and no hematuria On 02/28/2021 patient was seen and examined on the medical floor he is alert and oriented 3 in no apparent distress, he is still maintained on Airvo with FiO2 of 90% his temperature is 98.7 pulse 116 respiration 28 blood pressure 145/81 pulse ox 93% he is complaining of shortness of breath and occasional cough otherwise he denies any complaints there is no fever or chills no headache or dizziness no chest pain no nausea or vomiting no abdominal pain no diarrhea no blood in the stools no burning with urination no frequency or urgency and no hematuria. On 03/01/2021 patient was seen and examined in the ICU he is intubated sedated maintained on mechanical ventilation air this morning patient was having worsening shortness of breath and decreased O2 sat duration despite Airvo, he was transferred to ICU and was intubated. Currently patient is on assist c ontrol tidal volume of 400 rate of 30 FiO2 100% and PEEP of 10 arterial blood gas reveals a pH of 7.24 pCO2 55 PO2 78 sodium is 127 LDH 2034 C-reactive protein 4.5 pulmonary are following closely On 03/02/2021 patient was seen and examined in the ICU he is intubated sedated maintained on mechanical ventilation air this morning patient was having worsening shortness of breath and decreased O2 sat duration despite Airvo, he was transferred to ICU and was intubated. Currently patient is on assist control tidal volume of 400 rate of 30 FiO2 100% and PEEP of 10 arterial blood gas reveals a pH of 7.24 pCO2 55 PO2 78 sodium is 127 LDH 203 C-reactive protein 4.5 pulmonary are following closely. Patient has evidence of ileus, he is maintained on NG tube to suction, surgical consultation was requested. On 03/03/2021 patient was seen and examined in the ICU he is intubated sedated maintained on mechanical ventilation air this morning patient was having worsening shortness of breath and decreased O2 sat duration despite Airvo, he was transferred to ICU and was intubated. Currently patient is on assist control tidal volume of 420 rate of 30 FiO2 85 % and PEEP of 16 arterial blood gas reveals a pH of 7.39 pCO2 55 PO2 66 sodium is 134 LDH 2034 C-reactive protein 4.5 pulmonary are following closely. Patient has evidence of ileus, he is maintained on NG tube to suction, surgical consultation was requested. On 03/04/2021 patient was seen and examined in the ICU he is intubated sedated maintained on mechanical ventilation air this morning patient was having worsening shortness of breath and decreased O2 sat duration despite Airvo, he was transferred to ICU and was intubated. Currently patient is on assist control tidal volume of 420 rate of 30 FiO2 85 % and PEEP of 16 arterial blood gas reveals a pH of 7.41 pCO2 53 PO2 89 sodium is 136 D-Dimer 2.0 pulmonary are following closely.\\ On 03/05/2021 patient was seen and examined in the ICU he is intubated sedated maintained on mechanical ventilation, patient is maintained on assist control tidal volume 42 rate of 30 FiO2 75% and PEEP at 16 arterial blood gas reveals a pH of 7.43 pCO2 48 and PO2 84 white blood count is 11.6 hemoglobin 11.3 platelet count 305 d-dimer 1.85 Objective - Vital Signs Vital signs: Vital Signs Temp 100.2 F H 03/05/21 04:00 Pulse 78 03/05/21 07:00 Resp 34 H 03/05/21 07:00 BP 110/72 03/02/21 20:00 Pulse Ox 92 L 03/05/21 07:00 Intake & Output 03/04/21 03/05/21 03/05/21 18:59 06:59 18:59 Intake Total 1410 2918.679 85 Output Total 655 570 45 Balance 755 2348.679 40 Weight 133.7 kg Intake: IV 900 1900 75 Sodium Chloride 0.9% 1, 900 900 75 000 ml @ 75 mls/hr IV . [id number] [facility] Rx#:[id number] Vancomycin 2,250 mg In 1000 Sodium Chloride 0.9% 500 ml 500 ml @ 167 mls/hr IVPB Q8H [facility] Rx#: [id number] Intake, IV Titration 500 718.679 Amount Cisatracurium 200 mg In 200 189.002 Sodium Chloride 0.9% 180 ml @ 1 MCG/KG/MIN 7.756 mls/hr IV .Q24H [facility] Rx#: [id number] fentaNYL (PF). 1,000 mcg 200 73.872 In Sodium Chloride 0.9% 80 ml @ Per Protocol IV . Q0M [facility] Rx#:[id number] propofoL 1,000 mg In 100 455.805 Empty Bag 1 bag @ Titrate IV .Q0M [facility] Rx#: [id number] Oral 90 Tube Feeding 10 120 10 Other 90 Output: Urine 655 570 45 Other: Voiding Method Indwelling Catheter Indwelling Catheter # Bowel Movements 1 ABP, PAP, CO, CI - Last Documented Arterial Blood Pressure 108/53 - Exam In general patient is intubated sedated maintained on mechanical ventilation HEENT head normocephalic and atraumatic Neck is supple no JVD no goiter no lymphadenopathy Chest exam reveals a few scattered crackles no wheezing Cardiac exam reveals regular heart sounds no gallops no murmurs Abdomen is soft nontender no organomegaly with normal bowel sounds Extremity exam reveals no edema no cyanosis or clubbing Neurological examination reveals no gross focal deficit - Labs CBC & Chem 7: 03/05/21 04:00 03/05/21 04:00 Labs: Abnormal Lab Results - Last 24 Hours (Table) 03/05/21 03/05/21 03/05/21 Range/Units 04:00 04:00 04:00 WBC 11.6 H (3.8-10.6) k/uL RBC 3.88 L (4.30-5.90) m/uL Hgb 11.3 L (13.0-17.5) gm/dL Hct 34.6 L (39.0-53.0) % Neutrophils # 10.2 H (1.3-7.7) k/uL D-Dimer 1.85 H (<0.60) mg/L FEU ABG pCO2 (35-45) mmHg ABG pO2 (83-108) mmHg ABG HCO3 (21-25) mmol/L ABG Total CO2 (19-24) mmol/L Sodium 134 L (137-145) mmol/L Carbon Dioxide 31 H (22-30) mmol/L Calcium 7.5 L (8.4-10.2) mg/dL Lactate Dehydrogenase 1034 H (313-618) U/L C-Reactive Protein 1.2 H (<1.0) mg/dL 03/05/21 Range/Units 05:55 WBC (3.8-10.6) k/uL RBC (4.30-5.90) m/uL Hgb (13.0-17.5) gm/dL Hct (39.0-53.0) % Neutrophils # (1.3-7.7) k/uL D-Dimer (<0.60) mg/L FEU ABG pCO2 48 H (35-45) mmHg ABG pO2 82 L (83-108) mmHg ABG HCO3 32 H (21-25) mmol/L ABG Total CO2 33 H (19-24) mmol/L Sodium (137-145) mmol/L Carbon Dioxide (22-30) mmol/L Calcium (8.4-10.2) mg/dL Lactate Dehydrogenase (313-618) U/L C-Reactive Protein (<1.0) mg/dL Microbiology - Last 24 Hours (Table) 03/01/21 22:11 Gram Stain - Final Sputum Sputum Culture - Final Staphylococcus aureus Moraxella(branhamella) catarra 03/02/21 09:53 Blood Culture - Preliminary Blood No Growth after 48 hours 03/02/21 09:45 Blood Culture - Preliminary Blood No Growth after 48 hours Assessment and Plan Plan: 1. Acute COVID-19 pneumonia patient started on IV Decadron and subcu Lovenox p ulmonary consultation was requested, patient developed acute hypoxic respiratory failure requiring intubation and mechanical ventilation 2. Underlying history of asthma 3. Underlying history of morbid obesity 4. Hyponatremia, patient started on IV normal months leading 5. Elevated liver enzymes, will monitor closely 6. Evidence of ileus patient is maintained on NG tube to suction, surgical c onsultation following At this time patient was seen and examined in the emergency room he was started on subcu Lovenox and IV dexamethasone, vitamin C and vitamin D and zinc supplements he was also started on inhaled bronchodilators patient will be admitted to medical floor pulmonary consultation was requested. Patient was seen by pulmonary he is maintained on oxygen supplements, IV Decadron, subcu Lovenox, patient has improved since yesterday
--- NOTE | 2021-03-06 18:50 | P.PN ---
Subjective Progress Note Date: 03/06/21 Osmar Drummond, is a 35-year-old male patient of Dr. Hdz, who presented to [facility] emergency room with a chief complaint of worsening shortness of breath and chest tightness. Patient was also having persistent cough his symptoms started 12 days ago however he had severe worsening of his symptoms in the last 3 days. He stated that last Saturday he was tested for COVID-19, results came back positive on Saturday. He was evaluated in the emergency room vital examination on presentation revealed a temperature of 103 pulse 92 respiration 18 blood pressure 124/77 pulse ox 92% on room air. White blood count was 4.2 hemoglobin 15.4 platelet count 161 sodium 125 potassium 3.9 chloride 88 calcium 7.8 BUN 8 creatinine 0.94 AST 98 ALT 57 LDH 1623 C-reactive protein 41.1 EKG done in the emergency room revealed normal sinus rhythm normal EKG, chest x-ray done in the emergency room revealed patchy bilateral infiltrates compatible with multifocal pneumonia no pneumothorax. Patient was admitted to medical floor pulmonary consultation was requested. On 02/25/2021 patient was seen and examined on the medical floor he is alert and oriented 3 in no distress, he is still complaining of cough and shortness of breath otherwise he denies any complaints there is no fever or chills no hea dache or dizziness no chest pain no nausea or vomiting no abdominal pain no diarrhea no blood in the stools no burning was urination no frequency or urgency and no hematuria. On 02/26/2021 patient was seen and examined on the medical floor he is alert and oriented 3 in no distress he seems to be worse today he is having more tachycardia and tachypnea, his temperature is 99.8 pulse ox is down to 82% on 15 L high flow cannula inflammatory markers are up his LDH is 1735 up from 1440 yesterday C-reactive protein is up to 7.2 up from 6 yesterday d-dimer is up to 1.21 up from 0.77 yesterday, at this time patient is maintained on inhaled bronchodilators, IV Decadron, subcu Lovenox,, repeat chest x-ray done today reveals by basilar infiltrates and opacities consistent with COVID-19 infection without any significant change from previous x-ray on 02/27/2021 patient was seen and examined on the medical floor, he is alert and oriented 3 in no apparent distress he is reporting some improvement in his shortness of breath, vital exam reveals a temperature of 99.1 pulse 102 respiration 20 blood pressure 121/84 pulse ox 87% on 15 L high flow cannula, white blood count is 6.2 hemoglobin 13.8 platelet count 262 d-dimer 1.51 sodium 127 potassium 4.0 chloride 94 CO2 25 BUN 13 creatinine 0.81 LDH 1969 C-reactive protein up to 8.9, patient is complaining of cough and shortness of breath otherwise he denies any complaints there is no fever or chills no headache or dizziness no chest pain no nausea or vomiting no abdominal pain no diarrhea no blood in the stools no burning with urination no frequency or urgency and no hematuria On 02/28/2021 patient was seen and examined on the medical floor he is alert and oriented 3 in no apparent distress, he is still maintained on Airvo with FiO2 of 90% his temperature is 98.7 pulse 116 respiration 28 blood pressure 145/81 pulse ox 93% he is complaining of shortness of breath and occasional cough otherwise he denies any complaints there is no fever or chills no headache or dizziness no chest pain no nausea or vomiting no abdominal pain no diarrhea no blood in the stools no burning with urination no frequency or urgency and no hematuria. On 03/01/2021 patient was seen and examined in the ICU he is intubated sedated maintained on mechanical ventilation air this morning patient was having worsening shortness of breath and decreased O2 sat duration despite Airvo, he was transferred to ICU and was intubated. Currently patient is on assist c ontrol tidal volume of 400 rate of 30 FiO2 100% and PEEP of 10 arterial blood gas reveals a pH of 7.24 pCO2 55 PO2 78 sodium is 127 LDH 2034 C-reactive protein 4.5 pulmonary are following closely On 03/02/2021 patient was seen and examined in the ICU he is intubated sedated maintained on mechanical ventilation air this morning patient was having worsening shortness of breath and decreased O2 sat duration despite Airvo, he was transferred to ICU and was intubated. Currently patient is on assist control tidal volume of 400 rate of 30 FiO2 100% and PEEP of 10 arterial blood gas reveals a pH of 7.24 pCO2 55 PO2 78 sodium is 127 LDH 203 C-reactive protein 4.5 pulmonary are following closely. Patient has evidence of ileus, he is maintained on NG tube to suction, surgical consultation was requested. On 03/03/2021 patient was seen and examined in the ICU he is intubated sedated maintained on mechanical ventilation air this morning patient was having worsening shortness of breath and decreased O2 sat duration despite Airvo, he was transferred to ICU and was intubated. Currently patient is on assist control tidal volume of 420 rate of 30 FiO2 85 % and PEEP of 16 arterial blood gas reveals a pH of 7.39 pCO2 55 PO2 66 sodium is 134 LDH 2034 C-reactive protein 4.5 pulmonary are following closely. Patient has evidence of ileus, he is maintained on NG tube to suction, surgical consultation was requested. On 03/04/2021 patient was seen and examined in the ICU he is intubated sedated maintained on mechanical ventilation air this morning patient was having worsening shortness of breath and decreased O2 sat duration despite Airvo, he was transferred to ICU and was intubated. Currently patient is on assist control tidal volume of 420 rate of 30 FiO2 85 % and PEEP of 16 arterial blood gas reveals a pH of 7.41 pCO2 53 PO2 89 sodium is 136 D-Dimer 2.0 pulmonary are following closely.\\ On 03/05/2021 patient was seen and examined in the ICU he is intubated sedated maintained on mechanical ventilation, patient is maintained on assist control tidal volume 42 rate of 30 FiO2 75% and PEEP at 16 arterial blood gas reveals a pH of 7.43 pCO2 48 and PO2 84 white blood count is 11.6 hemoglobin 11.3 platelet count 305 d-dimer 1.85 On 03/06/2021 patient was seen and examined in the ICU he is intubated sedated maintained on mechanical ventilation, patient is maintained on assist control tidal volume 420 rate of 30 FiO2 55% and PEEP at 12 arterial blood gas reveals a pH of 7.43 pCO2 49 and PO2 88 white blood count is 11.6 hemoglobin 11.9 platelet count 305 d-dimer 1.7 patient had a sedation holiday today he did well he was alert and following commands Objective - Vital Signs Vital signs: Vital Signs Temp 98.9 F 03/06/21 08:00 Pulse 83 03/06/21 10:00 Resp 19 03/06/21 10:00 BP 110/72 03/02/21 20:00 Pulse Ox 86 L 03/06/21 10:00 Intake & Output 03/05/21 03/06/21 03/06/21 18:59 06:59 18:59 Intake Total 2409.829 9032.685 393.888 Output Total 860 1145 60 Balance 482.075 434.685 333.888 Weight 132.6 kg Intake: IV 900 900 75 Sodium Chloride 0.9% 1, 900 900 75 000 ml @ 75 mls/hr IV . [id number] [facility] Rx#:[id number] Intake, IV Titration 432.075 369.685 288.888 Amount Cisatracurium 200 mg In 200 45.570 Sodium Chloride 0.9% 180 ml @ 1 MCG/KG/MIN 7.756 mls/hr IV .Q24H [facility] Rx#: [id number] fentaNYL (PF). 1,000 mcg 100 88.128 101.952 In Sodium Chloride 0.9% 80 ml @ Per Protocol IV . Q0M [facility] Rx#:[id number] propofoL 1,000 mg In 132.075 281.557 141.366 Empty Bag 1 bag @ Titrate IV .Q0M [facility] Rx#: [id number] Tube Feeding 10 220 30 Other 90 Output: Urine 860 1145 60 Other: Voiding Method Indwelling Catheter Indwelling Catheter # Voids 400 ABP, PAP, CO, CI - Last Documented Arterial Blood Pressure 139/58 - Exam In general patient is intubated sedated maintained on mechanical ventilation HEENT head normocephalic and atraumatic Neck is supple no JVD no goiter no lymphadenopathy Chest exam reveals a few scattered crackles no wheezing Cardiac exam reveals regular heart sounds no gallops no murmurs Abdomen is soft nontender no organomegaly with normal bowel sounds Extremity exam reveals no edema no cyanosis or clubbing Neurological examination reveals no gross focal deficit - Labs CBC & Chem 7: 03/06/21 04:30 03/06/21 04:30 Labs: Abnormal Lab Results - Last 24 Hours (Table) 03/05/21 03/06/21 03/06/21 Range/Units 17:15 04:30 04:30 WBC 11.9 H (3.8-10.6) k/uL RBC 4.04 L (4.30-5.90) m/uL Hgb 11.4 L (13.0-17.5) gm/dL Hct 36.0 L (39.0-53.0) % Neutrophils # 10.5 H (1.3-7.7) k/uL D-Dimer (<0.60) mg/L FEU ABG pCO2 (35-45) mmHg ABG HCO3 (21-25) mmol/L ABG Total CO2 (19-24) mmol/L Sodium 133 L (137-145) mmol/L Carbon Dioxide 31 H (22-30) mmol/L BUN 21 H (9-20) mg/dL Creatinine 0.63 L (0.66-1.25) mg/dL Glucose 105 H (74-99) mg/dL POC Glucose (mg/dL) 116 H (75-99) mg/dL Calcium 7.6 L (8.4-10.2) mg/dL Lactate Dehydrogenase 938 H (313-618) U/L 03/06/21 03/06/21 03/06/21 Range/Units 04:30 05:23 12:09 WBC (3.8-10.6) k/uL RBC (4.30-5.90) m/uL Hgb (13.0-17.5) gm/dL Hct (39.0-53.0) % Neutrophils # (1.3-7.7) k/uL D-Dimer 1.70 H (<0.60) mg/L FEU ABG pCO2 49 H (35-45) mmHg ABG HCO3 32 H (21-25) mmol/L ABG Total CO2 34 H (19-24) mmol/L Sodium (137-145) mmol/L Carbon Dioxide (22-30) mmol/L BUN (9-20) mg/dL Creatinine (0.66-1.25) mg/dL Glucose (74-99) mg/dL POC Glucose (mg/dL) 129 H (75-99) mg/dL Calcium (8.4-10.2) mg/dL Lactate Dehydrogenase (313-618) U/L Microbiology - Last 24 Hours (Table) 03/02/21 09:53 Blood Culture - Preliminary Blood No Growth after 72 hours 03/02/21 09:45 Blood Culture - Preliminary Blood No Growth after 72 hours 03/01/21 22:11 Gram Stain - Final Sputum Sputum Culture - Final Staphylococcus aureus Moraxella(branhamella) catarra Assessment and Plan Plan: 1. Acute COVID-19 pneumonia patient started on IV Decadron and subcu Lovenox pulmonary consultation was requested, patient developed acute hypoxic respiratory failure requiring intubation and mechanical ventilation 2. Underlying history of asthma 3. Underlying history of morbid obesity 4. Hyponatremia, patient started on IV normal months leading 5. Elevated liver enzymes, will monitor closely 6. Evidence of ileus patient is maintained on NG tube to suction, surgical consultation following At this time patient was seen and examined in the emergency room he was started on subcu Lovenox and IV dexamethasone, vitamin C and vitamin D and zinc supplements he was also started on inhaled bronchodilators patient will be admitted to medical floor pulmonary consultation was requested. Patient was seen by pulmonary he is maintained on oxygen supplements, IV Decadron, subcu Lovenox, patient has improved since yesterday
[2021-03-06 23:49] LABS: Glucose,Whole Blood 114 mg/dL (75-99)
[2021-03-07] MEDS: METOCLOPRAMIDE 5 MG/ML 2 ML VIAL IVP SCH ×5 (00:09→23:37)
[2021-03-07] MEDS: AMPICILLIN-SULBACTAM 1.5 GM in SODIUM CHLORIDE 0.9% 50 ML IVPB SCH ×5 (00:09→23:36)
[2021-03-07] MEDS: SODIUM CHLORIDE 0.9% 1,000 ML IV SCH ×2 (02:24→13:10)
[2021-03-07 05:00] LABS: ABG Base Excess 6.8 mmol/L; ABG HCO3 31 mmol/L (21-25); ABG Oxygen Saturation 94.4 % (94-97); ABG PCO2 45 mmHg (35-45); ABG PH 7.44 (7.35-7.45); ABG PO2 71 mmHg (83-108); ABG TCO2 32 mmol/L (19-24); Allen Test Performed? Yes
[2021-03-07 05:16] LABS: Basophils % (A) 0 %; Eosinophils # (A) 0.1 k/uL (0-0.7); Eosinophils % (A) 1 %; HCT 33.1 % (39.0-53.0); HGB 11.4 gm/dL (13.0-17.5); Lymphocytes # (A) 0.8 k/uL (1.0-4.8); Lymphocytes % (A) 9 %; MCH 30.4 pg (25.0-35.0); MCHC 34.4 g/dL (31.0-37.0); MCV 88.5 fL (80.0-100.0); Mean Platelet Volume 8.3; Monocytes # (A) 0.4 k/uL (0-1.0); Monocytes % (A) 4 %; Neutrophils # (A) 8.4 k/uL (1.3-7.7); Neutrophils % (A) 86 %; Platelet Count 234 k/uL (150-450); RBC 3.74 m/uL (4.30-5.90); RDW 13.2 % (11.5-15.5); WBC 9.8 k/uL (3.8-10.6)
[2021-03-07] MEDS: fentaNYL (PF). 1,000 MCG in SODIUM CHLORIDE 0.9% 80 ML IV SCH ×4 (05:21→21:08)
[2021-03-07 05:32] LABS: African American GFR (CKD) >90 (>60 ml/min/1.73 sqM); Anion Gap 0 mmol/L; Blood Urea Nitrogen 20 mg/dL (9-20); C Reactive Protein 0.7 mg/dL (<1.0); Calcium 7.8 mg/dL (8.4-10.2); Carbon Dioxide 30 mmol/L (22-30); Chloride 101 mmol/L (98-107); Glucose 109 mg/dL (74-99); LDH 895 U/L (313-618); Non-African American GFR(CKD) >90 (>60 ml/min/1.73 sqM); Potassium 4.6 mmol/L (3.5-5.1); Sodium 131 mmol/L (137-145)
--- NOTE | 2021-03-07 06:50 | XR ---
EXAMINATION TYPE: XR abdomen 2V DATE OF EXAM: 03/07/2021 COMPARISON: 03/03/2020 HISTORY: Follow-up abnormal x-ray TECHNIQUE: One view abdominal series FINDINGS: NG tube noted. Basilar consolidation and small effusion noted greater on the left. There is interval reduction in size of the dilated bowel loops. Osseous structures stable overall bowel gas pattern non specific. IMPRESSION: 1. Interval reduction in amount of dilated bowel loops. NG tube is noted in position. 2. Bibasilar infiltrate small effusion.
--- NOTE | 2021-03-07 06:54 | XR ---
EXAMINATION TYPE: XR chest 1V portable DATE OF EXAM: 03/07/2021 COMPARISON: 03/06/2021 HISTORY: Difficulty breathing [ TECHNIQUE: Single frontal view of the chest is obtained. FINDINGS: ET and NG tube noted. Central line stable. Bilateral areas of diffuse infiltrate and pleur al effusion are stable. Large. No pneumothorax. IMPRESSION: Stable diffuse pleural-parenchymal changes correlate with diffuse pneumonia or CHF.
[2021-03-07] MEDS: ALBUTEROL HFA INHALER INHALATION SCH ×4 (07:44→20:34)
[2021-03-07] MEDS: bisacodyL 10 MG SUPP RECTAL SCH (07:49)
[2021-03-07] MEDS: CHLORHEXIDINE GLUCONATE 15 ML CUP MUCOUS MEM SCH ×2 (07:49→20:00)
[2021-03-07] MEDS: DEXAMETHASONE SOD PHOSPHATE 10 MG/ML 1 ML VIAL IV SCH ×2 (07:49→20:00)
[2021-03-07] MEDS: PANTOPRAZOLE 40 MG/10 ML VIAL IV SCH (07:50)
[2021-03-07] MEDS: ENOXAPARIN 40 MG/0.4 ML SYRINGE SQ SCH (07:50)
[2021-03-07 08:17] LABS: Glucose,Whole Blood 130 mg/dL (75-99)
--- NOTE | 2021-03-07 10:20 | P.PN ---
Subjective Progress Note Date: 03/07/21 Principal diagnosis: Shortness of breath. Progress note dated 02/27/2021. 35-year-old male admitted with a diagnosis of acute hypoxemic respiratory failure secondary to COVID 19 pneumonia. Chest x-ray showed multifocal bilateral infiltrates. In addition, the patient is morbidly obese, likely has sleep apnea syndrome, has lymphopenia, hyponatremia, and elevated liver function tests, all secondary to COVID 19. Currently, the patient's on saline at 75 mL an hour, and high flow nasal O2 at 15 L/m. White count 6.2, hemoglobin 13.8, hematocrit 39.0, and platelet count 262,000. D-dimer is 1.51. Sodium 127, potassium 4, chlorides 94, CO2 25, anion gap 8, BUN 13, creatinine 0.81. LDH is 1969, and C-reactive protein is 8.9. Chest x-ray shows bilateral infiltrates. Progress note dated 02/28/2021. 35-year-old male with a diagnosis of acute hypoxemic respiratory failure secondary to COVID 19 pneumonia. Chest x-ray showed multifocal bilateral infiltrates. The patient also has obesity, sleep apnea syndrome, lymphopenia, hyponatremic, and liver function abnormalities, all consistent with coronavirus infection. Yesterday, the patient was on high flow nasal O2, and nonrebreather mask. This morning, the respiratory therapist switch him over to AIRVO, at 60 L/m and 90% FiO2. The patient is not receiving any IV fluids. D-dimer is 4.62. Progress note dated 03/06/2021. 35-year-old male that I saw last on February 28. The patient was admitted on the , and was intubated on the . I saw him last on February 28. He was admitted with a diagnosis of COVID 19 pneumonia. Currently, the patient's on the volume assist control mode, rate 32, tidal volume 420, FiO2 55% to be dropped down to 80%, and PEEP 16. Blood gases show a PaO2 of 88, PaCO2 49, pH is 7.42. The patient's currently on Nimbex at 2 mcg/kg/m, propofol at 40 mcg/kg/m, fentanyl at 1 mcg/kg/h, saline at 75 mL an hour, and vital high protein at 30 mL an hour, with a goal of 52. The patient will get a daily interruption of sedation today. He may benefit from a spontaneous breathing trial, we'll have to see. Currently, his PEEP values still quite high. White count 11.9, hemoglobin 11.4, hematocrit 36, and platelet count 265,000. D-dimer is 1.7. Sodium 133, potassium 4.8, chlorides 100, CO2 31, anion gap 2, BUN 21, and creatinine 0.63. LDH is 938, and C-reactive protein is 0.8. Chest x-ray shows diffuse bilateral infiltrates, which may be a bit improved. Progress note dated 03/07/2021. 35-year-old male, who is again seen in room 255. The patient remains on the mechanical ventilator. The patient was initially admitted on February 24, and was intubated on March 01. Ventilator settings include the volume assist control mode, rate 32, tidal volume 420, FiO2 50%, PEEP of 12. Arterial blood gases show a PaO2 of 71, pCO2 45, and pH is 7.44. The patient's currently on Nimbex at 1 mcg/kg/m, propofol at 40 mcg/kg/m, and fentanyl at 1 mcg/kg/h. Patient's getting saline at 75 mL an hour, and vital high protein at 52 mL an hour, which is goal. White count 9.8, hemoglobin 11.4, hematocrit 33.1, and platelet count is 234,000. D-dimer 1.73. Sodium 131, potassium 4.6, chlorides 101, CO2 30, anion gap is 0. BUN 20, creatinine 0.56. LDH is 895. Chest x-ray shows stable diffuse bilateral infiltrates. Objective - Vital Signs Vital signs: Vital Signs Temp 99 F 03/07/21 04:00 Pulse 63 03/07/21 07:00 Resp 32 H 03/07/21 07:00 BP 122/62 03/07/21 07:00 Pulse Ox 91 L 03/07/21 07:00 Intake & Output 03/06/21 03/07/21 03/07/21 18:59 06:59 18:59 Intake Total 4322.491 1212.878 202.100 Output Total 1170 1085 75 Balance 658.810 2527.878 127.100 Weight 132.6 kg 133.356 kg Intake: IV 950 900 75 Ampicillin-Sulbactam 1.5 50 gm In Sodium Chloride 0.9 % 50 ml @ 100 mls/hr IVPB Q6HR [facility] Rx#:[id number] Sodium Chloride 0.9% 1, 900 900 75 000 ml @ 75 mls/hr IV . [id number] [facility]I Rx#:[id number] Intake, IV Titration 619.577 660.878 75.100 Amount Cisatracurium 200 mg In 97.765 178.790 23.044 Sodium Chloride 0.9% 180 ml @ 1 MCG/KG/MIN 7.756 mls/hr IV .Q24H [facility] Rx#: [id number] fentaNYL (PF). 1,000 mcg 174.744 182.088 52.056 In Sodium Chloride 0.9% 80 ml @ Per Protocol IV . Q0M [facility] Rx#:[id number] propofoL 1,000 mg In 347.068 300 Empty Bag 1 bag @ Titrate IV .Q0M [facility]I Rx#: [id number] Tube Feeding 410 588 52 Other 260 Output: Urine 1170 1085 75 Other: Voiding Method Indwelling Catheter Indwelling Catheter ABP, PAP, CO, CI - Last Documented Arterial Blood Pressure 101/60 - Exam Sedated, and paralyzed, with an orally placed endotracheal tube. Saturations are in the low 90s. HEENT examination is grossly unremarkable. Neck supple. Full range of motion. No adenopathy thyromegaly or neck vein distention. Cardiovascular examination reveals regular rhythm rate. S1-S2 normal. No S3 or S4. No discernible murmur noted. Heart sounds are distant. Heart rate is 63 bpm. Lungs reveal diffuse bilateral rhonchi. No wheezes. Breath sounds equal bilaterally. Some bibasilar crackles are noted. Abdomen soft bowel sounds are heard. No masses or tenderness. Extremities are intact. No cyanosis clubbing or edema. Skin is without rash or lesion. Neurologic examination cannot be adequately assessed as the patient's currently sedated and paralyzed. - Labs CBC & Chem 7: 03/07/21 04:25 03/07/21 04:25 Labs: Abnormal Lab Results - Last 24 Hours (Table) 03/06/21 03/06/21 03/07/21 Range/Units 12:09 23:48 04:25 RBC (4.30-5.90) m/uL Hgb (13.0-17.5) gm/dL Hct (39.0-53.0) % Neutrophils # (1.3-7.7) k/uL Lymphocytes # (1.0-4.8) k/uL D-Dimer (<0.60) mg/L FEU ABG pO2 (83-108) mmHg ABG HCO3 (21-25) mmol/L ABG Total CO2 (19-24) mmol/L Sodium 131 L (137-145) mmol/L Creatinine 0.56 L (0.66-1.25) mg/dL Glucose 109 H (74-99) mg/dL POC Glucose (mg/dL) 129 H 114 H (75-99) mg/dL Calcium 7.8 L (8.4-10.2) mg/dL Lactate Dehydrogenase 895 H (313-618) U/L 03/07/21 03/07/21 03/07/21 Range/Units 04:25 04:25 04:52 RBC 3.74 L (4.30-5.90) m/uL Hgb 11.4 L (13.0-17.5) gm/dL Hct 33.1 L (39.0-53.0) % Neutrophils # 8.4 H (1.3-7.7) k/uL Lymphocytes # 0.8 L (1.0-4.8) k/uL D-Dimer 1.73 H (<0.60) mg/L FEU ABG pO2 71 L (83-108) mmHg ABG HCO3 31 H (21-25) mmol/L ABG Total CO2 32 H (19-24) mmol/L Sodium (137-145) mmol/L Creatinine (0.66-1.25) mg/dL Glucose (74-99) mg/dL POC Glucose (mg/dL) (75-99) mg/dL Calcium (8.4-10.2) mg/dL Lactate Dehydrogenase (313-618) U/L 03/07/21 Range/Units 05:26 RBC (4.30-5.90) m/uL Hgb (13.0-17.5) gm/dL Hct (39.0-53.0) % Neutrophils # (1.3-7.7) k/uL Lymphocytes # (1.0-4.8) k/uL D-Dimer (<0.60) mg/L FEU ABG pO2 (83-108) mmHg ABG HCO3 (21-25) mmol/L ABG Total CO2 (19-24) mmol/L Sodium (137-145) mmol/L Creatinine (0.66-1.25) mg/dL Glucose (74-99) mg/dL POC Glucose (mg/dL) 130 H (75-99) mg/dL Calcium (8.4-10.2) mg/dL Lactate Dehydrogenase (313-618) U/L Microbiology - Last 24 Hours (Table) 03/02/21 09:45 Blood Culture - Preliminary Blood No Growth after 96 hours 03/02/21 09:53 Blood Culture - Preliminary Blood No Growth after 96 hours Assessment and Plan Assessment: Acute hypoxemic respiratory failure, secondary to COVID 19 pneumonia/pneumonitis, requiring intubation and mechanical ventilation on 03/01/2021. Acute ileus, requiring decompression with nasogastric tube. Methicillin sensitive staph aureus and Moraxella catarrhalis tracheobronchitis/bronchopneumonia, currently on Unasyn. Morbid obesity. Possible sleep apnea syndrome. Lymphopenia. Elevated liver function tests, secondary to coronavirus infection. Hyponatremia, improved. Plan: Plan dated 02/27/2021. The patient remains on saline 75 mL an hour, and nasal O2, high flow, and 15 L/m. The patient remains on Decadron and Lovenox. The patient was outside the window for REM. We will continue to follow. Prognosis is guarded. No chrystal tional recommendations are made. Plan dated 02/28/2021. The patient was placed on AIRVO. He seems to be more comfortable on this modality of providing him oxygen therapy. The patient is not receiving any IV fluids. Currently his medications appear to be appropriate including albuterol inhaler, vitamin C, vitamin D3, Decadron, Lovenox, and zinc. Additional recommendations and suggestions are forthcoming. We will continue to follow. The patient was outside the window for REM. Plan dated 03/06/2021. Unfortunately, the patient required intubation and mechanical ventilation on March 01. The patient currently remains on the mechanical ventilator. It's too soon to consider tracheostomy and PEG tube placement. We will attempt a daily interruption of sedation. In addition, we'll attempt to reduce the PEEP levels. The patient remains on propofol, Nimbex, and fentanyl. We'll attempt to get him off the Nimbex first. We will continue to follow make recommendations were appropriate. Prognosis is guarded. The patient may end up requiring a tracheostomy tube and PEG tube Plan dated 03/07/2021. The patient remains on Nimbex, propofol, and fentanyl. The patient is getting appropriate nutrition with vital high protein running at goal, which is 52 mL an hour. The patient may end up with a tracheostomy tube and PEG tube, should he not improve further as the week progresses. We will continue to follow the patient and make recommendations were appropriate. We will also do a daily interruption of sedation. He did reasonably well with his yesterday, although he did get agitated, started biting his endotracheal tube, and high pressuring the ventilator. Prognosis is guarded. Additional recommendations and suggestions are forthcoming. Time with Patient: Greater than 30
[2021-03-07 11:37] LABS: Glucose,Whole Blood 127 mg/dL (75-99)
[2021-03-07] MEDS: CLEVIDIPINE BUTYRATE 25 MG in EMPTY BAG 1 BAG IV SCH ×3 (15:34→18:50)
--- NOTE | 2021-03-07 15:40 | P.PN ---
Subjective Progress Note Date: 03/07/21 Principal diagnosis: Ileus Patient stable on the ventilator. Following commands and denies pain when there is a sedation holiday. Oxygen requirements improved. Tolerating tube feeds at goal. Today's abdominal x-rays shows no residual colonic dilation. Objective - Vital Signs Vital signs: Vital Signs Temp 99.0 F 03/07/21 12:00 Pulse 84 03/07/21 13:00 Resp 27 H 03/07/21 13:00 BP 169/97 03/07/21 13:00 Pulse Ox 90 L 03/07/21 13:00 Intake & Output 03/06/21 03/07/21 03/07/21 18:59 06:59 18:59 Intake Total 2576.955 3190.878 1300.738 Output Total 1170 1085 992 Balance 241.456 4025.878 308.738 Weight 132.6 kg 133.356 kg 133.356 kg Intake: IV 950 900 525 Ampicillin-Sulbactam 1.5 50 gm In Sodium Chloride 0.9 % 50 ml @ 100 mls/hr IVPB Q6HR [facility] Rx#:[id number] Sodium Chloride 0.9% 1, 900 900 525 000 ml @ 75 mls/hr IV . [id number] [facility] Rx#:[id number] Intake, IV Titration 619.577 660.878 411.738 Amount Cisatracurium 200 mg In 97.765 178.790 57.849 Sodium Chloride 0.9% 180 ml @ 1 MCG/KG/MIN 7.756 mls/hr IV .Q24H [facility] Rx#: [id number] Clevidipine Butyrate 25 0.033 mg In Empty Bag 1 bag @ 1 MG/HR 2 mls/hr IV .Q24H [facility] Rx#:[id number] fentaNYL (PF). 1,000 mcg 174.744 182.088 101.682 In Sodium Chloride 0.9% 80 ml @ Per Protocol IV . Q0M [facility] Rx#:[id number] propofoL 1,000 mg In 347.068 300 252.174 Empty Bag 1 bag @ Titrate IV .Q0M [facility] Rx#: [id number] Tube Feeding 410 588 364 Other 260 Output: Urine 1170 1085 992 Other: Voiding Method Indwelling Catheter Indwelling Catheter Indwelling Catheter ABP, PAP, CO, CI - Last Documented Arterial Blood Pressure 177/85 - Exam Abdomen: Soft, nontender, nondistended - Labs CBC & Chem 7: 03/07/21 04:25 03/07/21 04:25 Labs: Abnormal Lab Results - Last 24 Hours (Table) 03/06/21 03/07/21 03/07/21 Range/Units 23:48 04:25 04:25 RBC 3.74 L (4.30-5.90) m/uL Hgb 11.4 L (13.0-17.5) gm/dL Hct 33.1 L (39.0-53.0) % Neutrophils # 8.4 H (1.3-7.7) k/uL Lymphocytes # 0.8 L (1.0-4.8) k/uL D-Dimer (<0.60) mg/L FEU ABG pO2 (83-108) mmHg ABG HCO3 (21-25) mmol/L ABG Total CO2 (19-24) mmol/L Sodium 131 L (137-145) mmol/L Creatinine 0.56 L (0.66-1.25) mg/dL Glucose 109 H (74-99) mg/dL POC Glucose (mg/dL) 114 H (75-99) mg/dL Calcium 7.8 L (8.4-10.2) mg/dL Lactate Dehydrogenase 895 H (313-618) U/L 03/07/21 03/07/21 03/07/21 Range/Units 04:25 04:52 05:26 RBC (4.30-5.90) m/uL Hgb (13.0-17.5) gm/dL Hct (39.0-53.0) % Neutrophils # (1.3-7.7) k/uL Lymphocytes # (1.0-4.8) k/uL D-Dimer 1.73 H (<0.60) mg/L FEU ABG pO2 71 L (83-108) mmHg ABG HCO3 31 H (21-25) mmol/L ABG Total CO2 32 H (19-24) mmol/L Sodium (137-145) mmol/L Creatinine (0.66-1.25) mg/dL Glucose (74-99) mg/dL POC Glucose (mg/dL) 130 H (75-99) mg/dL Calcium (8.4-10.2) mg/dL Lactate Dehydrogenase (313-618) U/L 03/07/21 Range/Units 11:36 RBC (4.30-5.90) m/uL Hgb (13.0-17.5) gm/dL Hct (39.0-53.0) % Neutrophils # (1.3-7.7) k/uL Lymphocytes # (1.0-4.8) k/uL D-Dimer (<0.60) mg/L FEU ABG pO2 (83-108) mmHg ABG HCO3 (21-25) mmol/L ABG Total CO2 (19-24) mmol/L Sodium (137-145) mmol/L Creatinine (0.66-1.25) mg/dL Glucose (74-99) mg/dL POC Glucose (mg/dL) 127 H (75-99) mg/dL Calcium (8.4-10.2) mg/dL Lactate Dehydrogenase (313-618) U/L Microbiology - Last 24 Hours (Table) 03/02/21 09:53 Blood Culture - Preliminary Blood No Growth after 120 hours 03/02/21 09:45 Blood Culture - Preliminary Blood No Growth after 120 hours Assessment and Plan (1) Ileus Narrative/Plan: Overall patient improving. Ileus seems to have resolved. No tenderness or significant distention. We'll sign off. Call if needed. Current Visit: Yes Status: Acute Code(s): K56.7 - ILEUS, UNSPECIFIED SNOMED Code(s): 519140723
[2021-03-07 17:41] LABS: Glucose,Whole Blood 130 mg/dL (75-99)
[2021-03-08] MEDS: fentaNYL (PF). 1,000 MCG in SODIUM CHLORIDE 0.9% 80 ML IV SCH ×7 (01:10→23:00)
[2021-03-08] MEDS: SODIUM CHLORIDE 0.9% 1,000 ML IV SCH ×2 (01:45→21:08)
[2021-03-08] MEDS: CISATRACURIUM 200 MG in SODIUM CHLORIDE 0.9% 180 ML IV SCH (03:26)
[2021-03-08 04:46] LABS: HCT 33.1 % (39.0-53.0); HGB 11.5 gm/dL (13.0-17.5); MCH 30.6 pg (25.0-35.0); MCHC 34.7 g/dL (31.0-37.0); MCV 88.3 fL (80.0-100.0); Mean Platelet Volume 8.8; Platelet Count 227 k/uL (150-450); RBC 3.75 m/uL (4.30-5.90); RDW 13.1 % (11.5-15.5)
[2021-03-08 04:51] LABS: Potassium 4.5 mmol/L (3.5-5.1)
[2021-03-08 04:54] LABS: African American GFR (CKD) >90 (>60 ml/min/1.73 sqM); Anion Gap 1 mmol/L; Blood Urea Nitrogen 16 mg/dL (9-20); C Reactive Protein <0.5 mg/dL (<1.0); Calcium 7.9 mg/dL (8.4-10.2); Carbon Dioxide 31 mmol/L (22-30); Chloride 104 mmol/L (98-107); Glucose 115 mg/dL (74-99); LDH 902 U/L (313-618); Non-African American GFR(CKD) >90 (>60 ml/min/1.73 sqM); Sodium 136 mmol/L (137-145)
[2021-03-08 05:18] LABS: ABG Base Excess 6.2 mmol/L; ABG HCO3 30 mmol/L (21-25); ABG Oxygen Saturation 95.5 % (94-97); ABG PCO2 44 mmHg (35-45); ABG PH 7.45 (7.35-7.45); ABG PO2 78 mmHg (83-108); ABG TCO2 32 mmol/L (19-24)
[2021-03-08] MEDS: AMPICILLIN-SULBACTAM 1.5 GM in SODIUM CHLORIDE 0.9% 50 ML IVPB SCH ×3 (05:44→18:22)
[2021-03-08] MEDS: METOCLOPRAMIDE 5 MG/ML 2 ML VIAL IVP SCH ×3 (05:44→18:22)
[2021-03-08] MEDS: CHLORHEXIDINE GLUCONATE 15 ML CUP MUCOUS MEM SCH ×2 (08:40→21:07)
[2021-03-08] MEDS: DEXAMETHASONE SOD PHOSPHATE 10 MG/ML 1 ML VIAL IV SCH ×2 (08:40→21:07)
[2021-03-08] MEDS: ENOXAPARIN 40 MG/0.4 ML SYRINGE SQ SCH (08:40)
[2021-03-08] MEDS: PANTOPRAZOLE 40 MG/10 ML VIAL IV SCH (08:40)
[2021-03-08] MEDS: ALBUTEROL HFA INHALER INHALATION SCH ×4 (09:22→20:38)
--- NOTE | 2021-03-08 10:06 | P.PN ---
Subjective Progress Note Date: 03/08/21 Principal diagnosis: Shortness of breath. Progress note dated 02/27/2021. 35-year-old male admitted with a diagnosis of acute hypoxemic respiratory failure secondary to COVID 19 pneumonia. Chest x-ray showed multifocal bilateral infiltrates. In addition, the patient is morbidly obese, likely has sleep apnea syndrome, has lymphopenia, hyponatremia, and elevated liver function tests, all secondary to COVID 19. Currently, the patient's on saline at 75 mL an hour, and high flow nasal O2 at 15 L/m. White count 6.2, hemoglobin 13.8, hematocrit 39.0, and platelet count 262,000. D-dimer is 1.51. Sodium 127, potassium 4, chlorides 94, CO2 25, anion gap 8, BUN 13, creatinine 0.81. LDH is 1969, and C-reactive protein is 8.9. Chest x-ray shows bilateral infiltrates. Progress note dated 02/28/2021. 35-year-old male with a diagnosis of acute hypoxemic respiratory failure secondary to COVID 19 pneumonia. Chest x-ray showed multifocal bilateral infiltrates. The patient also has obesity, sleep apnea syndrome, lymphopenia, hyponatremic, and liver function abnormalities, all consistent with coronavirus infection. Yesterday, the patient was on high flow nasal O2, and nonrebreather mask. This morning, the respiratory therapist switch him over to AIRVO, at 60 L/m and 90% FiO2. The patient is not receiving any IV fluids. D-dimer is 4.62. Progress note dated 03/06/2021. 35-year-old male that I saw last on February 28. The patient was admitted on the , and was intubated on the . I saw him last on February 28. He was admitted with a diagnosis of COVID 19 pneumonia. Currently, the patient's on the volume assist control mode, rate 32, tidal volume 420, FiO2 55% to be dropped down to 80%, and PEEP 16. Blood gases show a PaO2 of 88, PaCO2 49, pH is 7.42. The patient's currently on Nimbex at 2 mcg/kg/m, propofol at 40 mcg/kg/m, fentanyl at 1 mcg/kg/h, saline at 75 mL an hour, and vital high protein at 30 mL an hour, with a goal of 52. The patient will get a daily interruption of sedation today. He may benefit from a spontaneous breathing trial, we'll have to see. Currently, his PEEP values still quite high. White count 11.9, hemoglobin 11.4, hematocrit 36, and platelet count 265,000. D-dimer is 1.7. Sodium 133, potassium 4.8, chlorides 100, CO2 31, anion gap 2, BUN 21, and creatinine 0.63. LDH is 938, and C-reactive protein is 0.8. Chest x-ray shows diffuse bilateral infiltrates, which may be a bit improved. Progress note dated 03/07/2021. 35-year-old male, who is again seen in room 255. The patient remains on the mechanical ventilator. The patient was initially admitted on February 24, and was intubated on March 01. Ventilator settings include the volume assist control mode, rate 32, tidal volume 420, FiO2 50%, PEEP of 12. Arterial blood gases show a PaO2 of 71, pCO2 45, and pH is 7.44. The patient's currently on Nimbex at 1 mcg/kg/m, propofol at 40 mcg/kg/m, and fentanyl at 1 mcg/kg/h. Patient's getting saline at 75 mL an hour, and vital high protein at 52 mL an hour, which is goal. White count 9.8, hemoglobin 11.4, hematocrit 33.1, and platelet count is 234,000. D-dimer 1.73. Sodium 131, potassium 4.6, chlorides 101, CO2 30, anion gap is 0. BUN 20, creatinine 0.56. LDH is 895. Chest x-ray shows stable diffuse bilateral infiltrates. Progress note dated 03/08/2021. 35-year-old male, seen again in room 255. The patient remains on the mechanical ventilator. The patient is on the volume assist control mode, rate 32, tidal volume 420, FiO2 50%, PEEP of 12. Blood gases show pO2 78, pCO2 44, pH 7.45. The patient is currently on fentanyl 1.4 mcg/kg/h, propofol, at 50 mcg/kg/m, Nimbex at 1.5 mcg/kg/m, saline at 75 mL an hour, Cleveprex, currently on hold, and vital high protein at 44 mL an hour, which is goal. The PEEP will be dropped from 12 to 10. In addition, we've asked surgery to consider doing a tracheostomy tube and PEG tube placement. Current labs include a white count 9, hemoglobin 11.5, hematocrit 33.1, and platelet count 227,000. D-dimer is 1.84. Sodium 136, potassium 4.5, chlorides 104, CO2 31, anion gap 1, BUN 16, creatinine 0.5 to, C-reactive protein less than 0.5, and LDH 902. No chest x- ray today. The chest x-ray yesterday showed diffuse bilateral stable infiltrat es. Objective - Vital Signs Vital signs: Vital Signs Temp 98.4 F 03/08/21 04:00 Pulse 61 03/08/21 07:00 Resp 32 H 03/08/21 07:00 BP 108/64 03/08/21 07:00 Pulse Ox 93 L 03/08/21 07:00 Intake & Output 03/07/21 03/08/21 03/08/21 18:59 06:59 18:59 Intake Total 2142.195 2400.889 254.964 Output Total 2482 1900 125 Balance -339.805 500.889 129.964 Weight 133.356 kg 133.2 kg Intake: IV 900 900 75 Sodium Chloride 0.9% 1, 900 900 75 000 ml @ 75 mls/hr IV . [id number] [facility] Rx#:[id number] Intake, IV Titration 634.195 882.889 135.964 Amount Cisatracurium 200 mg In 84.836 56.278 Sodium Chloride 0.9% 180 ml @ 1 MCG/KG/MIN 7.756 mls/hr IV .Q24H [facility]I Rx#: [id number] Clevidipine Butyrate 25 70.900 9.400 mg In Empty Bag 1 bag @ 1 MG/HR 2 mls/hr IV .Q24H [facility] Rx#:[id number] fentaNYL (PF). 1,000 mcg 150.606 344.064 35.964 In Sodium Chloride 0.9% 80 ml @ Per Protocol IV . Q0M [facility] Rx#:[id number] propofoL 1,000 mg In 327.853 473.147 100 Empty Bag 1 bag @ Titrate IV .Q0M TERI Rx#: [id number] Tube Feeding 608 528 44 Other 90 Output: Urine 2482 1900 125 Other: Voiding Method Indwelling Catheter Indwelling Catheter ABP, PAP, CO, CI - Last Documented Arterial Blood Pressure 103/49 - Exam Sedated, and paralyzed, with an orally placed endotracheal tube. Saturation is 93%. HEENT examination is grossly unremarkable. Neck supple. Full range of motion. No adenopathy thyromegaly or neck vein distention. Cardiovascular examination reveals regular rhythm rate. S1-S2 normal. No S3 or S4. No discernible murmur noted. Heart sounds are distant. Heart rate is 66 bpm. Lungs reveal diffuse bilateral rhonchi. No wheezes. Breath sounds equal bilaterally. Some bibasilar crackles are noted. Abdomen soft bowel sounds are heard. No masses or tenderness. Extremities are intact. No cyanosis clubbing or edema. Skin is without rash or lesion. Neurologic examination cannot be adequately assessed as the patient's currently sedated and paralyzed. - Labs CBC & Chem 7: 03/08/21 04:00 03/08/21 04:00 Labs: Abnormal Lab Results - Last 24 Hours (Table) 03/07/21 03/07/21 03/08/21 Range/Units 11:36 17:40 04:00 RBC 3.75 L (4.30-5.90) m/uL Hgb 11.5 L (13.0-17.5) gm/dL Hct 33.1 L (39.0-53.0) % D-Dimer (<0.60) mg/L FEU ABG pO2 (83-108) mmHg ABG HCO3 (21-25) mmol/L ABG Total CO2 (19-24) mmol/L Sodium (137-145) mmol/L Carbon Dioxide (22-30) mmol/L Creatinine (0.66-1.25) mg/dL Glucose (74-99) mg/dL POC Glucose (mg/dL) 127 H 130 H (75-99) mg/dL Calcium (8.4-10.2) mg/dL Lactate Dehydrogenase (313-618) U/L 03/08/21 03/08/21 03/08/21 Range/Units 04:00 04:00 05:13 RBC (4.30-5.90) m/uL Hgb (13.0-17.5) gm/dL Hct (39.0-53.0) % D-Dimer 1.84 H (<0.60) mg/L FEU ABG pO2 78 L (83-108) mmHg ABG HCO3 30 H (21-25) mmol/L ABG Total CO2 32 H (19-24) mmol/L Sodium 136 L (137-145) mmol/L Carbon Dioxide 31 H (22-30) mmol/L Creatinine 0.52 L (0.66-1.25) mg/dL Glucose 115 H (74-99) mg/dL POC Glucose (mg/dL) (75-99) mg/dL Calcium 7.9 L (8.4-10.2) mg/dL Lactate Dehydrogenase 902 H (313-618) U/L Microbiology - Last 24 Hours (Table) 03/02/21 09:53 Blood Culture - Preliminary Blood No Growth after 120 hours 03/02/21 09:45 Blood Culture - Preliminary Blood No Growth after 120 hours Assessment and Plan Assessment: Acute hypoxemic respiratory failure, secondary to COVID 19 pneumonia/pneumo nitis, requiring intubation and mechanical ventilation on 03/01/2021. Failure to progress on mechanical ventilation, with anticipated tracheostomy tube placement and PEG tube placement. Acute ileus, requiring decompression with nasogastric tube. Methicillin sensitive staph aureus and Moraxella catarrhalis tracheobronchitis/bronchopneumonia, currently on Unasyn. Morbid obesity. Possible sleep apnea syndrome. Lymphopenia. Elevated liver function tests, secondary to coronavirus infection. Hyponatremia, resolved. Plan: Plan dated 02/27/2021. The patient remains on saline 75 mL an hour, and nasal O2, high flow, and 15 L/m. The patient remains on Decadron and Lovenox. The patient was outside the window for REM. We will continue to follow. Prognosis is guarded. No chrystal tional recommendations are made. Plan dated 02/28/2021. The patient was placed on AIRVO. He seems to be more comfortable on this modality of providing him oxygen therapy. The patient is not receiving any IV fluids. Currently his medications appear to be appropriate including albuterol inhaler, vitamin C, vitamin D3, Decadron, Lovenox, and zinc. Additional recommendations and suggestions are forthcoming. We will continue to follow. The patient was outside the window for REM. Plan dated 03/06/2021. Unfortunately, the patient required intubation and mechanical ventilation on March 01. The patient currently remains on the mechanical ventilator. It's too soon to consider tracheostomy and PEG tube placement. We will attempt a daily interruption of sedation. In addition, we'll attempt to reduce the PEEP levels. The patient remains on propofol, Nimbex, and fentanyl. We'll attempt to get him off the Nimbex first. We will continue to follow make recommendations were appropriate. Prognosis is guarded. The patient may end up requiring a tracheostomy tube and PEG tube Plan dated 03/07/2021. The patient remains on Nimbex, propofol, and fentanyl. The patient is getting appropriate nutrition with vital high protein running at goal, which is 52 mL an hour. The patient may end up with a tracheostomy tube and PEG tube, should he not improve further as the week progresses. We will continue to follow the patient and make recommendations were appropriate. We will also do a daily interruption of sedation. He did reasonably well with his yesterday, although he did get agitated, started biting his endotracheal tube, and high pressuring the ventilator. Prognosis is guarded. Additional recommendations and suggestions are forthcoming. Plan dated 03/08/2021. Currently, the patient remains on fentanyl, propofol, and Nimbex. We'll ask surgery to this evaluate the patient for possible tracheostomy and PEG tube placement. We'll also make a PEEP change from 12 cm water, down to 10 cm water. The patient has not made much progress in the process of weaning and liberation from mechanical ventilation. Additional recommendations and suggestions are forthcoming. The patient becomes very agitated and started biting the endotracheal tube with daily interruption of sedation. We will continue to follow make recommendations were appropriate. Prognosis is very guarded. Time with Patient: Greater than 30
[2021-03-08] MEDS: bisacodyL 10 MG SUPP RECTAL SCH (10:57)
--- NOTE | 2021-03-08 11:05 | P.PN ---
Subjective Progress Note Date: 03/07/21 Osmar Drummond, is a 35-year-old male patient of Dr. Hdz, who presented to [facility] emergency room with a chief complaint of worsening shortness of breath and chest tightness. Patient was also having persistent cough his symptoms started 12 days ago however he had severe worsening of his symptoms in the last 3 days. He stated that last Saturday he was tested for COVID-19, results came back positive on Saturday. He was evaluated in the emergency room vital examination on presentation revealed a temperature of 103 pulse 92 respiration 18 blood pressure 124/77 pulse ox 92% on room air. White blood count was 4.2 hemoglobin 15.4 platelet count 161 sodium 125 potassium 3.9 chloride 88 calcium 7.8 BUN 8 creatinine 0.94 AST 98 ALT 57 LDH 1623 C-reactive protein 41.1 EKG done in the emergency room revealed normal sinus rhythm normal EKG, chest x-ray done in the emergency room revealed patchy bilateral infiltrates compatible with multifocal pneumonia no pneumothorax. Patient was admitted to medical floor pulmonary consultation was requested. On 02/25/2021 patient was seen and examined on the medical floor he is alert and oriented 3 in no distress, he is still complaining of cough and shortness of breath otherwise he denies any complaints there is no fever or chills no hea dache or dizziness no chest pain no nausea or vomiting no abdominal pain no diarrhea no blood in the stools no burning was urination no frequency or urgency and no hematuria. On 02/26/2021 patient was seen and examined on the medical floor he is alert and oriented 3 in no distress he seems to be worse today he is having more tachycardia and tachypnea, his temperature is 99.8 pulse ox is down to 82% on 15 L high flow cannula inflammatory markers are up his LDH is 1735 up from 1440 yesterday C-reactive protein is up to 7.2 up from 6 yesterday d-dimer is up to 1.21 up from 0.77 yesterday, at this time patient is maintained on inhaled bronchodilators, IV Decadron, subcu Lovenox,, repeat chest x-ray done today reveals by basilar infiltrates and opacities consistent with COVID-19 infection without any significant change from previous x-ray on 02/27/2021 patient was seen and examined on the medical floor, he is alert and oriented 3 in no apparent distress he is reporting some improvement in his shortness of breath, vital exam reveals a temperature of 99.1 pulse 102 respiration 20 blood pressure 121/84 pulse ox 87% on 15 L high flow cannula, white blood count is 6.2 hemoglobin 13.8 platelet count 262 d-dimer 1.51 sodium 127 potassium 4.0 chloride 94 CO2 25 BUN 13 creatinine 0.81 LDH 1969 C-reactive protein up to 8.9, patient is complaining of cough and shortness of breath otherwise he denies any complaints there is no fever or chills no headache or dizziness no chest pain no nausea or vomiting no abdominal pain no diarrhea no blood in the stools no burning with urination no frequency or urgency and no hematuria On 02/28/2021 patient was seen and examined on the medical floor he is alert and oriented 3 in no apparent distress, he is still maintained on Airvo with FiO2 of 90% his temperature is 98.7 pulse 116 respiration 28 blood pressure 145/81 pulse ox 93% he is complaining of shortness of breath and occasional cough otherwise he denies any complaints there is no fever or chills no headache or dizziness no chest pain no nausea or vomiting no abdominal pain no diarrhea no blood in the stools no burning with urination no frequency or urgency and no hematuria. On 03/01/2021 patient was seen and examined in the ICU he is intubated sedated maintained on mechanical ventilation air this morning patient was having worsening shortness of breath and decreased O2 sat duration despite Airvo, he was transferred to ICU and was intubated. Currently patient is on assist c ontrol tidal volume of 400 rate of 30 FiO2 100% and PEEP of 10 arterial blood gas reveals a pH of 7.24 pCO2 55 PO2 78 sodium is 127 LDH 2034 C-reactive protein 4.5 pulmonary are following closely On 03/02/2021 patient was seen and examined in the ICU he is intubated sedated maintained on mechanical ventilation air this morning patient was having worsening shortness of breath and decreased O2 sat duration despite Airvo, he was transferred to ICU and was intubated. Currently patient is on assist control tidal volume of 400 rate of 30 FiO2 100% and PEEP of 10 arterial blood gas reveals a pH of 7.24 pCO2 55 PO2 78 sodium is 127 LDH 203 C-reactive protein 4.5 pulmonary are following closely. Patient has evidence of ileus, he is maintained on NG tube to suction, surgical consultation was requested. On 03/03/2021 patient was seen and examined in the ICU he is intubated sedated maintained on mechanical ventilation air this morning patient was having worsening shortness of breath and decreased O2 sat duration despite Airvo, he was transferred to ICU and was intubated. Currently patient is on assist control tidal volume of 420 rate of 30 FiO2 85 % and PEEP of 16 arterial blood gas reveals a pH of 7.39 pCO2 55 PO2 66 sodium is 134 LDH 2034 C-reactive protein 4.5 pulmonary are following closely. Patient has evidence of ileus, he is maintained on NG tube to suction, surgical consultation was requested. On 03/04/2021 patient was seen and examined in the ICU he is intubated sedated maintained on mechanical ventilation air this morning patient was having worsening shortness of breath and decreased O2 sat duration despite Airvo, he was transferred to ICU and was intubated. Currently patient is on assist control tidal volume of 420 rate of 30 FiO2 85 % and PEEP of 16 arterial blood gas reveals a pH of 7.41 pCO2 53 PO2 89 sodium is 136 D-Dimer 2.0 pulmonary are following closely.\\ On 03/05/2021 patient was seen and examined in the ICU he is intubated sedated maintained on mechanical ventilation, patient is maintained on assist control tidal volume 42 rate of 30 FiO2 75% and PEEP at 16 arterial blood gas reveals a pH of 7.43 pCO2 48 and PO2 84 white blood count is 11.6 hemoglobin 11.3 platelet count 305 d-dimer 1.85 On 03/06/2021 patient was seen and examined in the ICU he is intubated sedated maintained on mechanical ventilation, patient is maintained on assist control tidal volume 420 rate of 30 FiO2 55% and PEEP at 12 arterial blood gas reveals a pH of 7.43 pCO2 49 and PO2 88 white blood count is 11.6 hemoglobin 11.9 platelet count 305 d-dimer 1.7 patient had a sedation holiday today he did well he was alert and following commands On 03/07/2021 patient was seen and examined in the ICU he is intubated sedated maintained on mechanical ventilation patient is maintained on assist control tidal volume 420 rate 32 FiO2 50% with a PEEP of 12 arterial blood gas reveals a pH of 7.44 pCO2 45 and PaO2 of 71 patient is having sedation holidays and is responding well at that time Objective - Vital Signs Vital signs: Vital Signs Temp 98.9 F 03/07/21 16:00 Pulse 109 H 03/07/21 18:00 Resp 34 H 03/07/21 18:00 BP 155/83 03/07/21 18:00 Pulse Ox 89 L 03/07/21 18:00 Intake & Output 03/07/21 03/07/21 03/08/21 06:59 18:59 06:59 Intake Total 2408.878 2142.195 Output Total 1085 2482 Balance 1323.878 -339.805 Weight 133.356 kg 133.356 kg Intake: IV 900 900 Sodium Chloride 0.9% 1, 900 900 000 ml @ 75 mls/hr IV . [id number] [facility] Rx#:[id number] Intake, IV Titration 660.878 634.195 Amount Cisatracurium 200 mg In 178.790 84.836 Sodium Chloride 0.9% 180 ml @ 1 MCG/KG/MIN 7.756 mls/hr IV .Q24H [facility] Rx#: [id number] Clevidipine Butyrate 25 70.900 mg In Empty Bag 1 bag @ 1 MG/HR 2 mls/hr IV .Q24H [facility] Rx#:[id number] fentaNYL (PF). 1,000 mcg 182.088 150.606 In Sodium Chloride 0.9% 80 ml @ Per Protocol IV . Q0M [facility] Rx#:[id number] propofoL 1,000 mg In 300 327.853 Empty Bag 1 bag @ Titrate IV .Q0M [facility] Rx#: [id number] Tube Feeding 588 608 Other 260 Output: Urine 1085 2482 Other: Voiding Method Indwelling Catheter Indwelling Catheter ABP, PAP, CO, CI - Last Documented Arterial Blood Pressure 115/79 - Exam In general patient is intubated sedated maintained on mechanical ventilation HEENT head normocephalic and atraumatic Neck is supple no JVD no goiter no lymphadenopathy Chest exam reveals a few scattered crackles no wheezing Cardiac exam reveals regular heart sounds no gallops no murmurs Abdomen is soft nontender no organomegaly with normal bowel sounds Extremity exam reveals no edema no cyanosis or clubbing Neurological examination reveals no gross focal deficit - Labs CBC & Chem 7: 03/07/21 04:25 03/07/21 04:25 Labs: Abnormal Lab Results - Last 24 Hours (Table) 03/06/21 03/07/21 03/07/21 Range/Units 23:48 04:25 04:25 RBC 3.74 L (4.30-5.90) m/uL Hgb 11.4 L (13.0-17.5) gm/dL Hct 33.1 L (39.0-53.0) % Neutrophils # 8.4 H (1.3-7.7) k/uL Lymphocytes # 0.8 L (1.0-4.8) k/uL D-Dimer (<0.60) mg/L FEU ABG pO2 (83-108) mmHg ABG HCO3 (21-25) mmol/L ABG Total CO2 (19-24) mmol/L Sodium 131 L (137-145) mmol/L Creatinine 0.56 L (0.66-1.25) mg/dL Glucose 109 H (74-99) mg/dL POC Glucose (mg/dL) 114 H (75-99) mg/dL Calcium 7.8 L (8.4-10.2) mg/dL Lactate Dehydrogenase 895 H (313-618) U/L 03/07/21 03/07/21 03/07/21 Range/Units 04:25 04:52 05:26 RBC (4.30-5.90) m/uL Hgb (13.0-17.5) gm/dL Hct (39.0-53.0) % Neutrophils # (1.3-7.7) k/uL Lymphocytes # (1.0-4.8) k/uL D-Dimer 1.73 H (<0.60) mg/L FEU ABG pO2 71 L (83-108) mmHg ABG HCO3 31 H (21-25) mmol/L ABG Total CO2 32 H (19-24) mmol/L Sodium (137-145) mmol/L Creatinine (0.66-1.25) mg/dL Glucose (74-99) mg/dL POC Glucose (mg/dL) 130 H (75-99) mg/dL Calcium (8.4-10.2) mg/dL Lactate Dehydrogenase (313-618) U/L 03/07/21 03/07/21 Range/Units 11:36 17:40 RBC (4.30-5.90) m/uL Hgb (13.0-17.5) gm/dL Hct (39.0-53.0) % Neutrophils # (1.3-7.7) k/uL Lymphocytes # (1.0-4.8) k/uL D-Dimer (<0.60) mg/L FEU ABG pO2 (83-108) mmHg ABG HCO3 (21-25) mmol/L ABG Total CO2 (19-24) mmol/L Sodium (137-145) mmol/L Creatinine (0.66-1.25) mg/dL Glucose (74-99) mg/dL POC Glucose (mg/dL) 127 H 130 H (75-99) mg/dL Calcium (8.4-10.2) mg/dL Lactate Dehydrogenase (313-618) U/L Microbiology - Last 24 Hours (Table) 03/02/21 09:53 Blood Culture - Preliminary Blood No Growth after 120 hours 03/02/21 09:45 Blood Culture - Preliminary Blood No Growth after 120 hours Assessment and Plan Plan: 1. Acute COVID-19 pneumonia patient started on IV Decadron and subcu Lovenox pulmonary consultation was requested, patient developed acute hypoxic respiratory failure requiring intubation and mechanical ventilation 2. Underlying history of asthma 3. Underlying history of morbid obesity 4. Hyponatremia, patient started on IV normal months leading 5. Elevated liver enzymes, will monitor closely 6. Evidence of ileus patient is maintained on NG tube to suction, surgical consultation following At this time patient was seen and examined in the emergency room he was started on subcu Lovenox and IV dexamethasone, vitamin C and vitamin D and zinc supplements he was also started on inhaled bronchodilators patient will be admitted to medical floor pulmonary consultation was requested. Patient was seen by pulmonary he is maintained on oxygen supplements, IV Decadron, subcu Lovenox, patient has improved since yesterday
--- NOTE | 2021-03-08 11:09 | P.PN ---
<Virginia Virk - Last Filed: 03/08/21 11:01> Subjective Progress Note Date: 03/08/21 CHIEF COMPLAINT: Covid pneumonia HISTORY OF PRESENT ILLNESS: Surgical service is following regards to patient's ileus and abdominal x-ray from yesterday shows no residual colonic dilation. Patient's ileus appears to have resolved. Surgical service was requested for tracheostomy and PEG tube placement due to patient's continuing respiratory failure and not being able to wean from the vent. Patient remains in the ICU and intubated. He remains on fentanyl, propofol and Nimbex. He is tolerating tube feeds. Patient did have a bowel movement today. Nursing staff did hold his suppository. Afebrile. WBC 9 hemoglobin 11.5 d-dimer 1.84. Albumin 2.5 PHYSICAL EXAM: VITAL SIGNS: Reviewed. GENERAL: Well-developed in no acute distress. HEENT: No sclera icterus. Extraocular movements grossly intact. Moist buccal mucosa. Head is atraumatic, normocephalic. ABDOMEN: Soft. Nondistended NEUROLOGIC: Intubated and sedated ASSESSMENT: 1. Acute hypoxic respiratory failure secondary to COVID-19 pneumonia with prolonged mechanical ventilation 2. Severe protein calorie malnutrition 3. Ileus resolved PLAN: -Further recommendations forthcoming regarding tracheostomy and PEG tube placement per surgeon -Continue ICU management -Continue supportive care Physician Chemical Production Machine Operator note has been reviewed by physician. Signing provider agrees with the documented findings, assessment, and plan of care. Objective - Vital Signs Vital signs: Vital Signs Temp 98.6 F 03/08/21 08:00 Pulse 64 03/08/21 10:00 Resp 32 H 03/08/21 10:00 BP 122/67 03/08/21 10:00 Pulse Ox 91 L 03/08/21 10:00 Intake & Output 03/07/21 03/08/21 03/08/21 18:59 06:59 18:59 Intake Total 2142.195 2400.889 641.964 Output Total 2482 1900 375 Balance -339.805 500.889 266.964 Weight 133.356 kg 133.2 kg Intake: IV 900 900 300 Sodium Chloride 0.9% 1, 900 900 300 000 ml @ 75 mls/hr IV . [id number] [facility] Rx#:[id number] Intake, IV Titration 634.195 882.889 135.964 Amount Cisatracurium 200 mg In 84.836 56.278 Sodium Chloride 0.9% 180 ml @ 1 MCG/KG/MIN 7.756 mls/hr IV .Q24H [facility] Rx#: [id number] Clevidipine Butyrate 25 70.900 9.400 mg In Empty Bag 1 bag @ 1 MG/HR 2 mls/hr IV .Q24H [facility] Rx#:[id number] fentaNYL (PF). 1,000 mcg 150.606 344.064 35.964 In Sodium Chloride 0.9% 80 ml @ Per Protocol IV . Q0M [facility] Rx#:[id number] propofoL 1,000 mg In 327.853 473.147 100 Empty Bag 1 bag @ Titrate IV .Q0M [facility] Rx#: [id number] Tube Feeding 608 528 176 Other 90 30 Output: Urine 2482 1900 375 Other: Voiding Method Indwelling Catheter Indwelling Catheter Indwelling Catheter ABP, PAP, CO, CI - Last Documented Arterial Blood Pressure 89/50 - Labs CBC & Chem 7: 03/08/21 04:00 03/08/21 04:00 Labs: Abnormal Lab Results - Last 24 Hours (Table) 03/07/21 03/07/21 03/08/21 Range/Units 11:36 17:40 04:00 RBC 3.75 L (4.30-5.90) m/uL Hgb 11.5 L (13.0-17.5) gm/dL Hct 33.1 L (39.0-53.0) % D-Dimer (<0.60) mg/L FEU ABG pO2 (83-108) mmHg ABG HCO3 (21-25) mmol/L ABG Total CO2 (19-24) mmol/L Sodium (137-145) mmol/L Carbon Dioxide (22-30) mmol/L Creatinine (0.66-1.25) mg/dL Glucose (74-99) mg/dL POC Glucose (mg/dL) 127 H 130 H (75-99) mg/dL Calcium (8.4-10.2) mg/dL Lactate Dehydrogenase (313-618) U/L 03/08/21 03/08/21 03/08/21 Range/Units 04:00 04:00 05:13 RBC (4.30-5.90) m/uL Hgb (13.0-17.5) gm/dL Hct (39.0-53.0) % D-Dimer 1.84 H (<0.60) mg/L FEU ABG pO2 78 L (83-108) mmHg ABG HCO3 30 H (21-25) mmol/L ABG Total CO2 32 H (19-24) mmol/L Sodium 136 L (137-145) mmol/L Carbon Dioxide 31 H (22-30) mmol/L Creatinine 0.52 L (0.66-1.25) mg/dL Glucose 115 H (74-99) mg/dL POC Glucose (mg/dL) (75-99) mg/dL Calcium 7.9 L (8.4-10.2) mg/dL Lactate Dehydrogenase 902 H (313-618) U/L Microbiology - Last 24 Hours (Table) 03/02/21 09:53 Blood Culture - Preliminary Blood No Growth after 120 hours 03/02/21 09:45 Blood Culture - Preliminary Blood No Growth after 120 hours <Rk Vargas - Last Filed: 03/09/21 10:27> Subjective As above. Case discussed with pulmonary. We'll tentatively plan tracheostomy and PEG tube placement Saturday. Objective - Vital Signs Vital signs: Vital Signs Temp 98.2 F 03/09/21 08:00 Pulse 60 03/09/21 10:00 Resp 32 H 03/09/21 10:00 BP 110/63 03/09/21 10:00 Pulse Ox 94 L 03/09/21 10:00 Intake & Output 03/08/21 03/09/21 03/09/21 18:59 06:59 18:59 Intake Total 2398.841 2378.611 656.373 Output Total 8235 6545 880 Balance -626.159 -856.389 -223.627 Weight 132.3 kg Intake: IV 975 868 197 A line Flush 33 12 Ampicillin-Sulbactam 1.5 50 gm In Sodium Chloride 0.9 % 50 ml @ 100 mls/hr IVPB Q6HR [facility] Rx#:[id number] Sodium Chloride 0.9% 1, 975 785 185 000 ml @ 10 mls/hr IV . Q24H [facility] Rx#:[id number] Intake, IV Titration 761.841 999.611 253.373 Amount Ampicillin-Sulbactam 1.5 50 gm In Sodium Chloride 0.9 % 50 ml @ 100 mls/hr IVPB Q6HR [facility] Rx#:[id number] Cisatracurium 200 mg In 95.794 110.927 54.877 Sodium Chloride 0.9% 180 ml @ 1 MCG/KG/MIN 7.756 mls/hr IV .Q24H [facility] Rx#: [id number] fentaNYL (PF). 1,000 mcg 230.032 488.684 98.496 In Sodium Chloride 0.9% 80 ml @ Per Protocol IV . Q0M [facility] Rx#:[id number] propofoL 1,000 mg In 386.015 400 100 Empty Bag 1 bag @ Titrate IV .Q0M [facility] Rx#: [id number] Tube Feeding 572 451 176 Other 90 60 30 Output: Urine 3025 3235 880 Other: Voiding Method Indwelling Catheter Indwelling Catheter # Bowel Movements 1 ABP, PAP, CO, CI - Last Documented Arterial Blood Pressure 111/56 - Labs CBC & Chem 7: 03/09/21 05:25 03/09/21 05:25 Labs: Abnormal Lab Results - Last 24 Hours (Table) 03/08/21 03/08/21 03/08/21 Range/Units 11:48 12:07 17:37 RBC (4.30-5.90) m/uL Hgb (13.0-17.5) gm/dL Hct (39.0-53.0) % Neutrophils # (1.3-7.7) k/uL D-Dimer (<0.60) mg/L FEU ABG pCO2 (35-45) mmHg ABG pO2 (83-108) mmHg ABG HCO3 (21-25) mmol/L ABG Total CO2 (19-24) mmol/L Carbon Dioxide (22-30) mmol/L Creatinine (0.66-1.25) mg/dL Glucose (74-99) mg/dL POC Glucose (mg/dL) 128 H 132 H 129 H (75-99) mg/dL Calcium (8.4-10.2) mg/dL Ferritin (22.0-322.0) ng/mL AST (17-59) U/L ALT (4-49) U/L Total Protein (6.3-8.2) g/dL Albumin (3.5-5.0) g/dL 03/08/21 03/09/21 03/09/21 Range/Units 23:44 04:57 05:25 RBC 4.05 L (4.30-5.90) m/uL Hgb 11.6 L (13.0-17.5) gm/dL Hct 36.2 L (39.0-53.0) % Neutrophils # 8.2 H (1.3-7.7) k/uL D-Dimer (<0.60) mg/L FEU ABG pCO2 48 H (35-45) mmHg ABG pO2 73 L (83-108) mmHg ABG HCO3 31 H (21-25) mmol/L ABG Total CO2 32 H (19-24) mmol/L Carbon Dioxide (22-30) mmol/L Creatinine (0.66-1.25) mg/dL Glucose (74-99) mg/dL POC Glucose (mg/dL) 123 H (75-99) mg/dL Calcium (8.4-10.2) mg/dL Ferritin (22.0-322.0) ng/mL AST (17-59) U/L ALT (4-49) U/L Total Protein (6.3-8.2) g/dL Albumin (3.5-5.0) g/dL 03/09/21 03/09/21 03/09/21 Range/Units 05:25 05:25 06:13 RBC (4.30-5.90) m/uL Hgb (13.0-17.5) gm/dL Hct (39.0-53.0) % Neutrophils # (1.3-7.7) k/uL D-Dimer 3.40 H (<0.60) mg/L FEU ABG pCO2 (35-45) mmHg ABG pO2 (83-108) mmHg ABG HCO3 (21-25) mmol/L ABG Total CO2 (19-24) mmol/L Carbon Dioxide 31 H (22-30) mmol/L Creatinine 0.49 L (0.66-1.25) mg/dL Glucose 112 H (74-99) mg/dL POC Glucose (mg/dL) 105 H (75-99) mg/dL Calcium 8.2 L (8.4-10.2) mg/dL Ferritin 1351.1 H (22.0-322.0) ng/mL AST 84 H (17-59) U/L ALT 230 H (4-49) U/L Total Protein 4.9 L (6.3-8.2) g/dL Albumin 2.7 L (3.5-5.0) g/dL Microbiology - Last 24 Hours (Table) 03/02/21 09:45 Blood Culture - Final Blood No Growth after 144 hours 03/02/21 09:53 Blood Culture - Final Blood No Growth after 144 hours Assessment and Plan (1) Ileus Current Visit: Yes Status: Acute Code(s): K56.7 - ILEUS, UNSPECIFIED S NOMED Code(s): 094195819
[2021-03-08 11:49] LABS: Glucose,Whole Blood 128 mg/dL (75-99)
[2021-03-08 12:08] LABS: Glucose,Whole Blood 132 mg/dL (75-99)
--- NOTE | 2021-03-08 17:29 | P.PN ---
Subjective Progress Note Date: 03/08/21 Osmar Drummond, is a 35-year-old male patient of Dr. Hdz, who presented to [facility] emergency room with a chief complaint of worsening shortness of breath and chest tightness. Patient was also having persistent cough his symptoms started 12 days ago however he had severe worsening of his symptoms in the last 3 days. He stated that last Saturday he was tested for COVID-19, results came back positive on Saturday. He was evaluated in the emergency room vital examination on presentation revealed a temperature of 103 pulse 92 respiration 18 blood pressure 124/77 pulse ox 92% on room air. White blood count was 4.2 hemoglobin 15.4 platelet count 161 sodium 125 potassium 3.9 chloride 88 calcium 7.8 BUN 8 creatinine 0.94 AST 98 ALT 57 LDH 1623 C-reactive protein 41.1 EKG done in the emergency room revealed normal sinus rhythm normal EKG, chest x-ray done in the emergency room revealed patchy bilateral infiltrates compatible with multifocal pneumonia no pneumothorax. Patient was admitted to medical floor pulmonary consultation was requested. On 02/25/2021 patient was seen and examined on the medical floor he is alert and oriented 3 in no distress, he is still complaining of cough and shortness of breath otherwise he denies any complaints there is no fever or chills no hea dache or dizziness no chest pain no nausea or vomiting no abdominal pain no diarrhea no blood in the stools no burning was urination no frequency or urgency and no hematuria. On 02/26/2021 patient was seen and examined on the medical floor he is alert and oriented 3 in no distress he seems to be worse today he is having more tachycardia and tachypnea, his temperature is 99.8 pulse ox is down to 82% on 15 L high flow cannula inflammatory markers are up his LDH is 1735 up from 1440 yesterday C-reactive protein is up to 7.2 up from 6 yesterday d-dimer is up to 1.21 up from 0.77 yesterday, at this time patient is maintained on inhaled bronchodilators, IV Decadron, subcu Lovenox,, repeat chest x-ray done today reveals by basilar infiltrates and opacities consistent with COVID-19 infection without any significant change from previous x-ray on 02/27/2021 patient was seen and examined on the medical floor, he is alert and oriented 3 in no apparent distress he is reporting some improvement in his shortness of breath, vital exam reveals a temperature of 99.1 pulse 102 respiration 20 blood pressure 121/84 pulse ox 87% on 15 L high flow cannula, white blood count is 6.2 hemoglobin 13.8 platelet count 262 d-dimer 1.51 sodium 127 potassium 4.0 chloride 94 CO2 25 BUN 13 creatinine 0.81 LDH 1969 C-reactive protein up to 8.9, patient is complaining of cough and shortness of breath otherwise he denies any complaints there is no fever or chills no headache or dizziness no chest pain no nausea or vomiting no abdominal pain no diarrhea no blood in the stools no burning with urination no frequency or urgency and no hematuria On 02/28/2021 patient was seen and examined on the medical floor he is alert and oriented 3 in no apparent distress, he is still maintained on Airvo with FiO2 of 90% his temperature is 98.7 pulse 116 respiration 28 blood pressure 145/81 pulse ox 93% he is complaining of shortness of breath and occasional cough otherwise he denies any complaints there is no fever or chills no headache or dizziness no chest pain no nausea or vomiting no abdominal pain no diarrhea no blood in the stools no burning with urination no frequency or urgency and no hematuria. On 03/01/2021 patient was seen and examined in the ICU he is intubated sedated maintained on mechanical ventilation air this morning patient was having worsening shortness of breath and decreased O2 sat duration despite Airvo, he was transferred to ICU and was intubated. Currently patient is on assist c ontrol tidal volume of 400 rate of 30 FiO2 100% and PEEP of 10 arterial blood gas reveals a pH of 7.24 pCO2 55 PO2 78 sodium is 127 LDH 2034 C-reactive protein 4.5 pulmonary are following closely On 03/02/2021 patient was seen and examined in the ICU he is intubated sedated maintained on mechanical ventilation air this morning patient was having worsening shortness of breath and decreased O2 sat duration despite Airvo, he was transferred to ICU and was intubated. Currently patient is on assist control tidal volume of 400 rate of 30 FiO2 100% and PEEP of 10 arterial blood gas reveals a pH of 7.24 pCO2 55 PO2 78 sodium is 127 LDH 203 C-reactive protein 4.5 pulmonary are following closely. Patient has evidence of ileus, he is maintained on NG tube to suction, surgical consultation was requested. On 03/03/2021 patient was seen and examined in the ICU he is intubated sedated maintained on mechanical ventilation air this morning patient was having worsening shortness of breath and decreased O2 sat duration despite Airvo, he was transferred to ICU and was intubated. Currently patient is on assist control tidal volume of 420 rate of 30 FiO2 85 % and PEEP of 16 arterial blood gas reveals a pH of 7.39 pCO2 55 PO2 66 sodium is 134 LDH 2034 C-reactive protein 4.5 pulmonary are following closely. Patient has evidence of ileus, he is maintained on NG tube to suction, surgical consultation was requested. On 03/04/2021 patient was seen and examined in the ICU he is intubated sedated maintained on mechanical ventilation air this morning patient was having worsening shortness of breath and decreased O2 sat duration despite Airvo, he was transferred to ICU and was intubated. Currently patient is on assist control tidal volume of 420 rate of 30 FiO2 85 % and PEEP of 16 arterial blood gas reveals a pH of 7.41 pCO2 53 PO2 89 sodium is 136 D-Dimer 2.0 pulmonary are following closely.\\ On 03/05/2021 patient was seen and examined in the ICU he is intubated sedated maintained on mechanical ventilation, patient is maintained on assist control tidal volume 42 rate of 30 FiO2 75% and PEEP at 16 arterial blood gas reveals a pH of 7.43 pCO2 48 and PO2 84 white blood count is 11.6 hemoglobin 11.3 platelet count 305 d-dimer 1.85 On 03/06/2021 patient was seen and examined in the ICU he is intubated sedated maintained on mechanical ventilation, patient is maintained on assist control tidal volume 420 rate of 30 FiO2 55% and PEEP at 12 arterial blood gas reveals a pH of 7.43 pCO2 49 and PO2 88 white blood count is 11.6 hemoglobin 11.9 platelet count 305 d-dimer 1.7 patient had a sedation holiday today he did well he was alert and following commands On 03/07/2021 patient was seen and examined in the ICU he is intubated sedated maintained on mechanical ventilation patient is maintained on assist control tidal volume 420 rate 32 FiO2 50% with a PEEP of 12 arterial blood gas reveals a pH of 7.44 pCO2 45 and PaO2 of 71 patient is having sedation holidays and is responding well at that time. On 03/08/2021, patient was seen and examined in the ICU he is intubated sedated maintained on mechanical ventilation, arterial blood gas Reveals a pH of 7.45 pCO2 44 PaO2 78 d-dimer 1.84, patient is maintained on assist control rate 32 tidal folium 420 FiO2 50% and a PEEP of 12 Objective - Vital Signs Vital signs: Vital Signs Temp 98.6 F 03/08/21 08:00 Pulse 64 03/08/21 10:00 Resp 32 H 03/08/21 10:00 BP 122/67 03/08/21 10:00 Pulse Ox 91 L 03/08/21 10:00 Intake & Output 03/07/21 03/08/21 03/08/21 18:59 06:59 18:59 Intake Total 2142.195 2400.889 641.964 Output Total 2482 1900 375 Balance -339.805 500.889 266.964 Weight 133.356 kg 133.2 kg Intake: IV 900 900 300 Sodium Chloride 0.9% 1, 900 900 300 000 ml @ 75 mls/hr IV . [id number] TERI Rx#:[id number] Intake, IV Titration 634.195 882.889 135.964 Amount Cisatracurium 200 mg In 84.836 56.278 Sodium Chloride 0.9% 180 ml @ 1 MCG/KG/MIN 7.756 mls/hr IV .Q24H TERI Rx#: [id number] Clevidipine Butyrate 25 70.900 9.400 mg In Empty Bag 1 bag @ 1 MG/HR 2 mls/hr IV .Q24H TERI Rx#:[id number] fentaNYL (PF). 1,000 mcg 150.606 344.064 35.964 In Sodium Chloride 0.9% 80 ml @ Per Protocol IV . Q0M TERI Rx#:[id number] propofoL 1,000 mg In 327.853 473.147 100 Empty Bag 1 bag @ Titrate IV .Q0M TERI Rx#: [id number] Tube Feeding 608 528 176 Other 90 30 Output: Urine 2482 1900 375 Other: Voiding Method Indwelling Catheter Indwelling Catheter Indwelling Catheter ABP, PAP, CO, CI - Last Documented Arterial Blood Pressure 89/50 - Exam In general patient is intubated sedated maintained on mechanical ventilation HEENT head normocephalic and atraumatic Neck is supple no JVD no goiter no lymphadenopathy Chest exam reveals a few scattered crackles no wheezing Cardiac exam reveals regular heart sounds no gallops no murmurs Abdomen is soft nontender no organomegaly with normal bowel sounds Extremity exam reveals no edema no cyanosis or clubbing Neurological examination reveals no gross focal deficit - Labs CBC & Chem 7: 03/08/21 04:00 03/08/21 04:00 Labs: Abnormal Lab Results - Last 24 Hours (Table) 03/07/21 03/07/21 03/08/21 Range/Units 11:36 17:40 04:00 RBC 3.75 L (4.30-5.90) m/uL Hgb 11.5 L (13.0-17.5) gm/dL Hct 33.1 L (39.0-53.0) % D-Dimer (<0.60) mg/L FEU ABG pO2 (83-108) mmHg ABG HCO3 (21-25) mmol/L ABG Total CO2 (19-24) mmol/L Sodium (137-145) mmol/L Carbon Dioxide (22-30) mmol/L Creatinine (0.66-1.25) mg/dL Glucose (74-99) mg/dL POC Glucose (mg/dL) 127 H 130 H (75-99) mg/dL Calcium (8.4-10.2) mg/dL Lactate Dehydrogenase (313-618) U/L 03/08/21 03/08/21 03/08/21 Range/Units 04:00 04:00 05:13 RBC (4.30-5.90) m/uL Hgb (13.0-17.5) gm/dL Hct (39.0-53.0) % D-Dimer 1.84 H (<0.60) mg/L FEU ABG pO2 78 L (83-108) mmHg ABG HCO3 30 H (21-25) mmol/L ABG Total CO2 32 H (19-24) mmol/L Sodium 136 L (137-145) mmol/L Carbon Dioxide 31 H (22-30) mmol/L Creatinine 0.52 L (0.66-1.25) mg/dL Glucose 115 H (74-99) mg/dL POC Glucose (mg/dL) (75-99) mg/dL Calcium 7.9 L (8.4-10.2) mg/dL Lactate Dehydrogenase 902 H (313-618) U/L Microbiology - Last 24 Hours (Table) 03/02/21 09:53 Blood Culture - Preliminary Blood No Growth after 120 hours 03/02/21 09:45 Blood Culture - Preliminary Blood No Growth after 120 hours Assessment and Plan Plan: 1. Acute COVID-19 pneumonia patient started on IV Decadron and subcu Lovenox pulmonary consultation was requested, patient developed acute hypoxic respiratory failure requiring intubation and mechanical ventilation 2. Underlying history of asthma 3. Underlying history of morbid obesity 4. Hyponatremia, patient started on IV normal months leading 5. Elevated liver enzymes, will monitor closely 6. Evidence of ileus patient is maintained on NG tube to suction, surgical consultation following At this time patient was seen and examined in the emergency room he was started on subcu Lovenox and IV dexamethasone, vitamin C and vitamin D and zinc supplements he was also started on inhaled bronchodilators patient will be admitted to medical floor pulmonary consultation was requested. Patient was see n by pulmonary he is maintained on oxygen supplements, IV Decadron, subcu Lovenox, patient has improved since yesterday
[2021-03-08 17:39] LABS: Glucose,Whole Blood 129 mg/dL (75-99)
[2021-03-08 23:45] LABS: Glucose,Whole Blood 123 mg/dL (75-99)
[2021-03-09] MEDS: METOCLOPRAMIDE 5 MG/ML 2 ML VIAL IVP SCH ×4 (00:13→18:28)
[2021-03-09] MEDS: AMPICILLIN-SULBACTAM 1.5 GM in SODIUM CHLORIDE 0.9% 50 ML IVPB SCH ×5 (00:13→23:54)
[2021-03-09] MEDS: fentaNYL (PF). 1,000 MCG in SODIUM CHLORIDE 0.9% 80 ML IV SCH ×9 (01:48→22:41)
[2021-03-09] MEDS: SODIUM CHLORIDE 0.9% 1,000 ML IV SCH ×2 (02:54→22:29)
[2021-03-09] MEDS: CISATRACURIUM 200 MG in SODIUM CHLORIDE 0.9% 180 ML IV SCH (04:12)
[2021-03-09 04:58] LABS: ABG Base Excess 6.4 mmol/L; ABG HCO3 31 mmol/L (21-25); ABG Oxygen Saturation 94.2 % (94-97); ABG PCO2 48 mmHg (35-45); ABG PH 7.42 (7.35-7.45); ABG PO2 73 mmHg (83-108); ABG TCO2 32 mmol/L (19-24)
[2021-03-09 05:45] LABS: Basophils % (A) 0 %; Eosinophils # (A) 0.1 k/uL (0-0.7); Eosinophils % (A) 1 %; HCT 36.2 % (39.0-53.0); HGB 11.6 gm/dL (13.0-17.5); Lymphocytes # (A) 1.1 k/uL (1.0-4.8); Lymphocytes % (A) 11 %; MCH 28.6 pg (25.0-35.0); MCV 89.3 fL (80.0-100.0); Mean Platelet Volume 9.1; Monocytes # (A) 0.3 k/uL (0-1.0); Monocytes % (A) 4 %; Neutrophils # (A) 8.2 k/uL (1.3-7.7); Neutrophils % (A) 83 %; Platelet Count 212 k/uL (150-450); RBC 4.05 m/uL (4.30-5.90); RDW 14.1 % (11.5-15.5); WBC 9.9 k/uL (3.8-10.6)
[2021-03-09 06:00] LABS: D-Dimer 3.4 mg/L FEU (<0.60)
[2021-03-09 06:09] LABS: Allen Test Performed? no
[2021-03-09 06:15] LABS: Glucose,Whole Blood 105 mg/dL (75-99)
[2021-03-09 06:23] LABS: ALT 230 U/L (4-49); AST 84 U/L (17-59); African American GFR (CKD) >90 (>60 ml/min/1.73 sqM); Albumin 2.7 g/dL (3.5-5.0); Alkaline Phosphatase 46 U/L (38-126); Anion Gap 2 mmol/L; Blood Urea Nitrogen 17 mg/dL (9-20); C Reactive Protein 0.5 mg/dL (<1.0); Calcium 8.2 mg/dL (8.4-10.2); Carbon Dioxide 31 mmol/L (22-30); Chloride 106 mmol/L (98-107); Glucose 112 mg/dL (74-99); Non-African American GFR(CKD) >90 (>60 ml/min/1.73 sqM); Potassium 4.3 mmol/L (3.5-5.1); Sodium 139 mmol/L (137-145); Total Bilirubin 0.5 mg/dL (0.2-1.3); Total Protein 4.9 g/dL (6.3-8.2)
[2021-03-09] MEDS: ALBUTEROL HFA INHALER INHALATION SCH ×4 (07:43→19:33)
[2021-03-09] MEDS: bisacodyL 10 MG SUPP RECTAL SCH (07:53)
--- NOTE | 2021-03-09 08:49 | XR ---
EXAMINATION TYPE: XR chest 1V DATE OF EXAM: 03/09/2021 COMPARISON: Chest x-ray 03/07/2021 HISTORY: Shortness of breath TECHNIQUE: Single frontal view of the chest is obtained. FINDINGS: Endotracheal tube, NG tube, left-sided PICC line are stable and overlying appropriate posi tions. There is no evident pneumothorax or pleural effusion. Bilateral airspace disease is present, i nterval improved visualization of the left hemidiaphragm. Cardiac mediastinal silhouette is stable. IMPRESSION: There is improvement in aeration in the left lower lobe.
[2021-03-09] MEDS: DEXAMETHASONE SOD PHOSPHATE 10 MG/ML 1 ML VIAL IV SCH ×2 (09:29→20:55)
[2021-03-09] MEDS: PANTOPRAZOLE 40 MG/10 ML VIAL IV SCH (09:29)
[2021-03-09] MEDS: ENOXAPARIN 40 MG/0.4 ML SYRINGE SQ SCH (09:29)
[2021-03-09] MEDS: CHLORHEXIDINE GLUCONATE 15 ML CUP MUCOUS MEM SCH ×2 (09:30→20:55)
[2021-03-09 09:31] LABS: Ferritin 1351.1 ng/mL (22.0-322.0)
--- NOTE | 2021-03-09 10:59 | P.PN ---
Subjective Progress Note Date: 03/09/21 Principal diagnosis: Shortness of breath. Progress note dated 02/27/2021. 35-year-old male admitted with a diagnosis of acute hypoxemic respiratory failure secondary to COVID 19 pneumonia. Chest x-ray showed multifocal bilateral infiltrates. In addition, the patient is morbidly obese, likely has sleep apnea syndrome, has lymphopenia, hyponatremia, and elevated liver function tests, all secondary to COVID 19. Currently, the patient's on saline at 75 mL an hour, and high flow nasal O2 at 15 L/m. White count 6.2, hemoglobin 13.8, hematocrit 39.0, and platelet count 262,000. D-dimer is 1.51. Sodium 127, potassium 4, chlorides 94, CO2 25, anion gap 8, BUN 13, creatinine 0.81. LDH is 1969, and C-reactive protein is 8.9. Chest x-ray shows bilateral infiltrates. Progress note dated 02/28/2021. 35-year-old male with a diagnosis of acute hypoxemic respiratory failure secondary to COVID 19 pneumonia. Chest x-ray showed multifocal bilateral infiltrates. The patient also has obesity, sleep apnea syndrome, lymphopenia, hyponatremic, and liver function abnormalities, all consistent with coronavirus infection. Yesterday, the patient was on high flow nasal O2, and nonrebreather mask. This morning, the respiratory therapist switch him over to AIRVO, at 60 L/m and 90% FiO2. The patient is not receiving any IV fluids. D-dimer is 4.62. Progress note dated 03/06/2021. 35-year-old male that I saw last on February 28. The patient was admitted on the , and was intubated on the . I saw him last on February 28. He was admitted with a diagnosis of COVID 19 pneumonia. Currently, the patient's on the volume assist control mode, rate 32, tidal volume 420, FiO2 55% to be dropped down to 80%, and PEEP 16. Blood gases show a PaO2 of 88, PaCO2 49, pH is 7.42. The patient's currently on Nimbex at 2 mcg/kg/m, propofol at 40 mcg/kg/m, fentanyl at 1 mcg/kg/h, saline at 75 mL an hour, and vital high protein at 30 mL an hour, with a goal of 52. The patient will get a daily interruption of sedation today. He may benefit from a spontaneous breathing trial, we'll have to see. Currently, his PEEP values still quite high. White count 11.9, hemoglobin 11.4, hematocrit 36, and platelet count 265,000. D-dimer is 1.7. Sodium 133, potassium 4.8, chlorides 100, CO2 31, anion gap 2, BUN 21, and creatinine 0.63. LDH is 938, and C-reactive protein is 0.8. Chest x-ray shows diffuse bilateral infiltrates, which may be a bit improved. Progress note dated 03/07/2021. 35-year-old male, who is again seen in room 255. The patient remains on the mechanical ventilator. The patient was initially admitted on February 24, and was intubated on March 01. Ventilator settings include the volume assist control mode, rate 32, tidal volume 420, FiO2 50%, PEEP of 12. Arterial blood gases show a PaO2 of 71, pCO2 45, and pH is 7.44. The patient's currently on Nimbex at 1 mcg/kg/m, propofol at 40 mcg/kg/m, and fentanyl at 1 mcg/kg/h. Patient's getting saline at 75 mL an hour, and vital high protein at 52 mL an hour, which is goal. White count 9.8, hemoglobin 11.4, hematocrit 33.1, and platelet count is 234,000. D-dimer 1.73. Sodium 131, potassium 4.6, chlorides 101, CO2 30, anion gap is 0. BUN 20, creatinine 0.56. LDH is 895. Chest x-ray shows stable diffuse bilateral infiltrates. Progress note dated 03/08/2021. 35-year-old male, seen again in room 255. The patient remains on the mechanical ventilator. The patient is on the volume assist control mode, rate 32, tidal volume 420, FiO2 50%, PEEP of 12. Blood gases show pO2 78, pCO2 44, pH 7.45. The patient is currently on fentanyl 1.4 mcg/kg/h, propofol, at 50 mcg/kg/m, Nimbex at 1.5 mcg/kg/m, saline at 75 mL an hour, Cleveprex, currently on hold, and vital high protein at 44 mL an hour, which is goal. The PEEP will be dropped from 12 to 10. In addition, we've asked surgery to consider doing a tracheostomy tube and PEG tube placement. Current labs include a white count 9, hemoglobin 11.5, hematocrit 33.1, and platelet count 227,000. D-dimer is 1.84. Sodium 136, potassium 4.5, chlorides 104, CO2 31, anion gap 1, BUN 16, creatinine 0.5 to, C-reactive protein less than 0.5, and LDH 902. No chest x- ray today. The chest x-ray yesterday showed diffuse bilateral stable infiltrat es. Progress note dated 03/09/2021. 35-year-old male, again seen, and room 255. In the hospital now for 13 days, admitted on 02/24/2021. The patient remains on the mechanical ventilator. The patient is scheduled for tracheostomy and PEG tube placement on Saturday. The patient is on a volume assist control mode, rate 32, tidal volume 420, FiO2 50%, and PEEP of 10. Blood gases show a PaO2 of 73, pCO2 48, and a pH is 7.42. The patient's currently on Nimbex at 2 mcg/kg/m, propofol at 50 mcg/kg/m, fentanyl at 3 mcg/kg/h, saline at 10 mL an hour, and vital high 13 at goal, which is 44 mL an hour. We will attempt to discontinue the Nimbex today. Previous attempts of daily interruption of sedation have not been beneficial. White count 9.9, hemoglobin 11.6, hematocrit 36.2, platelet count 312,000. D-dimer 3.4, sodium 139, potassium 4.3, chlorides 106, CO2 31, anion gap 2, BUN and creatinine were 17, and 0.49 respectively. Chest x-ray show some improvement in aeration in the left lower lobe. Objective - Vital Signs Vital signs: Vital Signs Temp 98.2 F 03/09/21 08:00 Pulse 60 03/09/21 10:00 Resp 32 H 03/09/21 10:00 BP 110/63 03/09/21 10:00 Pulse Ox 94 L 03/09/21 10:00 Intake & Output 03/08/21 03/09/21 03/09/21 18:59 06:59 18:59 Intake Total 2398.841 2378.611 658.571 Output Total 3025 3235 880 Balance -626.159 -856.389 -221.429 Weight 132.3 kg Intake: IV 975 868 197 A line Flush 33 12 Ampicillin-Sulbactam 1.5 50 gm In Sodium Chloride 0.9 % 50 ml @ 100 mls/hr IVPB Q6HR [facility] Rx#:[id number] Sodium Chloride 0.9% 1, 975 785 185 000 ml @ 10 mls/hr IV . Q24H [facility] Rx#:[id number] Intake, IV Titration 761.841 999.611 255.571 Amount Ampicillin-Sulbactam 1.5 50 gm In Sodium Chloride 0.9 % 50 ml @ 100 mls/hr IVPB Q6HR TERI Rx#:[id number] Cisatracurium 200 mg In 95.794 110.927 57.075 Sodium Chloride 0.9% 180 ml @ 1 MCG/KG/MIN 7.756 mls/hr IV .Q24H [facility] Rx#: [id number] fentaNYL (PF). 1,000 mcg 230.032 488.684 98.496 In Sodium Chloride 0.9% 80 ml @ Per Protocol IV . Q0M [facility] Rx#:[id number] propofoL 1,000 mg In 386.015 400 100 Empty Bag 1 bag @ Titrate IV .Q0M TERI Rx#: [id number] Tube Feeding 572 451 176 Other 90 60 30 Output: Urine 3025 3235 880 Other: Voiding Method Indwelling Catheter Indwelling Catheter Indwelling Catheter # Bowel Movements 1 ABP, PAP, CO, CI - Last Documented Arterial Blood Pressure 111/56 - Exam Sedated, and paralyzed, with an orally placed endotracheal tube. Saturation is 94%. HEENT examination is grossly unremarkable. Neck supple. Full range of motion. No adenopathy thyromegaly or neck vein distention. Cardiovascular examination reveals regular rhythm rate. S1-S2 normal. No S3 or S4. No discernible murmur noted. Heart sounds are distant. Heart rate is 60 bpm. Lungs reveal diffuse bilateral rhonchi. No wheezes. Breath sounds equal bilaterally. Some bibasilar crackles are noted. Abdomen soft bowel sounds are heard. No masses or tenderness. Extremities are intact. No cyanosis clubbing or edema. Skin is without rash or lesion. Neurologic examination cannot be adequately assessed as the patient's currently sedated and paralyzed. - Labs CBC & Chem 7: 03/09/21 05:25 03/09/21 05:25 Labs: Abnormal Lab Results - Last 24 Hours (Table) 03/08/21 03/08/21 03/08/21 Range/Units 11:48 12:07 17:37 RBC (4.30-5.90) m/uL Hgb (13.0-17.5) gm/dL Hct (39.0-53.0) % Neutrophils # (1.3-7.7) k/uL D-Dimer (<0.60) mg/L FEU ABG pCO2 (35-45) mmHg ABG pO2 (83-108) mmHg ABG HCO3 (21-25) mmol/L ABG Total CO2 (19-24) mmol/L Carbon Dioxide (22-30) mmol/L Creatinine (0.66-1.25) mg/dL Glucose (74-99) mg/dL POC Glucose (mg/dL) 128 H 132 H 129 H (75-99) mg/dL Calcium (8.4-10.2) mg/dL Ferritin (22.0-322.0) ng/mL AST (17-59) U/L ALT (4-49) U/L Total Protein (6.3-8.2) g/dL Albumin (3.5-5.0) g/dL 03/08/21 03/09/21 03/09/21 Range/Units 23:44 04:57 05:25 RBC 4.05 L (4.30-5.90) m/uL Hgb 11.6 L (13.0-17.5) gm/dL Hct 36.2 L (39.0-53.0) % Neutrophils # 8.2 H (1.3-7.7) k/uL D-Dimer (<0.60) mg/L FEU ABG pCO2 48 H (35-45) mmHg ABG pO2 73 L (83-108) mmHg ABG HCO3 31 H (21-25) mmol/L ABG Total CO2 32 H (19-24) mmol/L Carbon Dioxide (22-30) mmol/L Creatinine (0.66-1.25) mg/dL Glucose (74-99) mg/dL POC Glucose (mg/dL) 123 H (75-99) mg/dL Calcium (8.4-10.2) mg/dL Ferritin (22.0-322.0) ng/mL AST (17-59) U/L ALT (4-49) U/L Total Protein (6.3-8.2) g/dL Albumin (3.5-5.0) g/dL 03/09/21 03/09/21 03/09/21 Range/Units 05:25 05:25 06:13 RBC (4.30-5.90) m/uL Hgb (13.0-17.5) gm/dL Hct (39.0-53.0) % Neutrophils # (1.3-7.7) k/uL D-Dimer 3.40 H (<0.60) mg/L FEU ABG pCO2 (35-45) mmHg ABG pO2 (83-108) mmHg ABG HCO3 (21-25) mmol/L ABG Total CO2 (19-24) mmol/L Carbon Dioxide 31 H (22-30) mmol/L Creatinine 0.49 L (0.66-1.25) mg/dL Glucose 112 H (74-99) mg/dL POC Glucose (mg/dL) 105 H (75-99) mg/dL Calcium 8.2 L (8.4-10.2) mg/dL Ferritin 1351.1 H (22.0-322.0) ng/mL AST 84 H (17-59) U/L ALT 230 H (4-49) U/L Total Protein 4.9 L (6.3-8.2) g/dL Albumin 2.7 L (3.5-5.0) g/dL Microbiology - Last 24 Hours (Table) 03/02/21 09:45 Blood Culture - Final Blood No Growth after 144 hours 03/02/21 09:53 Blood Culture - Final Blood No Growth after 144 hours Assessment and Plan Assessment: Acute hypoxemic respiratory failure, secondary to COVID 19 pneumonia/pneumonitis, requiring intubation and mechanical ventilation on 03/01/2021. Failure to progress on mechanical ventilation, with anticipated tracheostomy tube placement and PEG tube placement. Acute ileus, requiring decompression with nasogastric tube. Methicillin sensitive staph aureus and Moraxella catarrhalis tracheob ronchitis/bronchopneumonia, currently on Unasyn. Morbid obesity. Possible sleep apnea syndrome. Lymphopenia. Elevated liver function tests, secondary to coronavirus infection. Hyponatremia, resolved. Plan: Plan dated 02/27/2021. The patient remains on saline 75 mL an hour, and nasal O2, high flow, and 15 L/m. The patient remains on Decadron and Lovenox. The patient was outside the window for REM. We will continue to follow. Prognosis is guarded. No additional recommendations are made. Plan dated 02/28/2021. The patient was placed on AIRVO. He seems to be more comfortable on this modality of providing him oxygen therapy. The patient is not receiving any IV fluids. Currently his medications appear to be appropriate including albuterol inhaler, vitamin C, vitamin D3, Decadron, Lovenox, and zinc. Additional recommendations and suggestions are forthcoming. We will continue to follow. The patient was outside the window for REM. Plan dated 03/06/2021. Unfortunately, the patient required intubation and mechanical ventilation on March 01. The patient currently remains on the mechanical ventilator. It's too soon to consider tracheostomy and PEG tube placement. We will attempt a daily interruption of sedation. In addition, we'll attempt to reduce the PEEP levels. The patient remains on propofol, Nimbex, and fentanyl. We'll attempt to get him off the Nimbex first. We will continue to follow make recommendations were appropriate. Prognosis is guarded. The patient may end up requiring a tracheostomy tube and PEG tube Plan dated 03/07/2021. The patient remains on Nimbex, propofol, and fentanyl. The patient is getting appropriate nutrition with vital high protein running at goal, which is 52 mL an hour. The patient may end up with a tracheostomy tube and PEG tube, should he not improve further as the week progresses. We will continue to follow the patient and make recommendations were appropriate. We will also do a daily interruption of sedation. He did reasonably well with his yesterday, although he did get agitated, started biting his endotracheal tube, and high pressuring the ventilator. Prognosis is guarded. Additional recommendations and suggestions are forthcoming. Plan dated 03/08/2021. Currently, the patient remains on fentanyl, propofol, and Nimbex. We'll ask surgery to this evaluate the patient for possible tracheostomy and PEG tube placement. We'll also make a PEEP change from 12 cm water, down to 10 cm water. The patient has not made much progress in the process of weaning and liberation from mechanical ventilation. Additional recommendations and suggestions are forthcoming. The patient becomes very agitated and started biting the endotracheal tube with daily interruption of sedation. We will continue to follow make recommendations were appropriate. Prognosis is very guarded. Plan dated 03/09/2021. The patient is on scheduled for a tracheostomy and PEG tube placement tomorrow. Currently, he remains on Nimbex, propofol, and fentanyl. We'll attempt again to get him off the Nimbex. Prior attempts at daily interruption of sedation, has not gone well. The patient is getting nutrition with vital high protein at goal. Additional recommendations and suggestions are forthcoming. Prognosis is guarded. We will continue to follow the patient closely and make recommendations where appropriate. Time with Patient: Greater than 30
[2021-03-09 11:53] LABS: Glucose,Whole Blood 125 mg/dL (75-99)
--- NOTE | 2021-03-09 17:25 | P.PN ---
Subjective Progress Note Date: 03/09/21 Osmar Drummond, is a 35-year-old male patient of Dr. Hdz, who presented to [facility] emergency room with a chief complaint of worsening shortness of breath and chest tightness. Patient was also having persistent cough his symptoms started 12 days ago however he had severe worsening of his symptoms in the last 3 days. He stated that last Saturday he was tested for COVID-19, results came back positive on Saturday. He was evaluated in the emergency room vital examination on presentation revealed a temperature of 103 pulse 92 respiration 18 blood pressure 124/77 pulse ox 92% on room air. White blood count was 4.2 hemoglobin 15.4 platelet count 161 sodium 125 potassium 3.9 chloride 88 calcium 7.8 BUN 8 creatinine 0.94 AST 98 ALT 57 LDH 1623 C-reactive protein 41.1 EKG done in the emergency room revealed normal sinus rhythm normal EKG, chest x-ray done in the emergency room revealed patchy bilateral infiltrates compatible with multifocal pneumonia no pneumothorax. Patient was admitted to medical floor pulmonary consultation was requested. On 02/25/2021 patient was seen and examined on the medical floor he is alert and oriented 3 in no distress, he is still complaining of cough and shortness of breath otherwise he denies any complaints there is no fever or chills no hea dache or dizziness no chest pain no nausea or vomiting no abdominal pain no diarrhea no blood in the stools no burning was urination no frequency or urgency and no hematuria. On 02/26/2021 patient was seen and examined on the medical floor he is alert and oriented 3 in no distress he seems to be worse today he is having more tachycardia and tachypnea, his temperature is 99.8 pulse ox is down to 82% on 15 L high flow cannula inflammatory markers are up his LDH is 1735 up from 1440 yesterday C-reactive protein is up to 7.2 up from 6 yesterday d-dimer is up to 1.21 up from 0.77 yesterday, at this time patient is maintained on inhaled bronchodilators, IV Decadron, subcu Lovenox,, repeat chest x-ray done today reveals by basilar infiltrates and opacities consistent with COVID-19 infection without any significant change from previous x-ray on 02/27/2021 patient was seen and examined on the medical floor, he is alert and oriented 3 in no apparent distress he is reporting some improvement in his shortness of breath, vital exam reveals a temperature of 99.1 pulse 102 respiration 20 blood pressure 121/84 pulse ox 87% on 15 L high flow cannula, white blood count is 6.2 hemoglobin 13.8 platelet count 262 d-dimer 1.51 sodium 127 potassium 4.0 chloride 94 CO2 25 BUN 13 creatinine 0.81 LDH 1969 C-reactive protein up to 8.9, patient is complaining of cough and shortness of breath otherwise he denies any complaints there is no fever or chills no headache or dizziness no chest pain no nausea or vomiting no abdominal pain no diarrhea no blood in the stools no burning with urination no frequency or urgency and no hematuria On 02/28/2021 patient was seen and examined on the medical floor he is alert and oriented 3 in no apparent distress, he is still maintained on Airvo with FiO2 of 90% his temperature is 98.7 pulse 116 respiration 28 blood pressure 145/81 pulse ox 93% he is complaining of shortness of breath and occasional cough otherwise he denies any complaints there is no fever or chills no headache or dizziness no chest pain no nausea or vomiting no abdominal pain no diarrhea no blood in the stools no burning with urination no frequency or urgency and no hematuria. On 03/01/2021 patient was seen and examined in the ICU he is intubated sedated maintained on mechanical ventilation air this morning patient was having worsening shortness of breath and decreased O2 sat duration despite Airvo, he was transferred to ICU and was intubated. Currently patient is on assist c ontrol tidal volume of 400 rate of 30 FiO2 100% and PEEP of 10 arterial blood gas reveals a pH of 7.24 pCO2 55 PO2 78 sodium is 127 LDH 2034 C-reactive protein 4.5 pulmonary are following closely On 03/02/2021 patient was seen and examined in the ICU he is intubated sedated maintained on mechanical ventilation air this morning patient was having worsening shortness of breath and decreased O2 sat duration despite Airvo, he was transferred to ICU and was intubated. Currently patient is on assist control tidal volume of 400 rate of 30 FiO2 100% and PEEP of 10 arterial blood gas reveals a pH of 7.24 pCO2 55 PO2 78 sodium is 127 LDH 203 C-reactive protein 4.5 pulmonary are following closely. Patient has evidence of ileus, he is maintained on NG tube to suction, surgical consultation was requested. On 03/03/2021 patient was seen and examined in the ICU he is intubated sedated maintained on mechanical ventilation air this morning patient was having worsening shortness of breath and decreased O2 sat duration despite Airvo, he was transferred to ICU and was intubated. Currently patient is on assist control tidal volume of 420 rate of 30 FiO2 85 % and PEEP of 16 arterial blood gas reveals a pH of 7.39 pCO2 55 PO2 66 sodium is 134 LDH 2034 C-reactive protein 4.5 pulmonary are following closely. Patient has evidence of ileus, he is maintained on NG tube to suction, surgical consultation was requested. On 03/04/2021 patient was seen and examined in the ICU he is intubated sedated maintained on mechanical ventilation air this morning patient was having worsening shortness of breath and decreased O2 sat duration despite Airvo, he was transferred to ICU and was intubated. Currently patient is on assist control tidal volume of 420 rate of 30 FiO2 85 % and PEEP of 16 arterial blood gas reveals a pH of 7.41 pCO2 53 PO2 89 sodium is 136 D-Dimer 2.0 pulmonary are following closely.\\ On 03/05/2021 patient was seen and examined in the ICU he is intubated sedated maintained on mechanical ventilation, patient is maintained on assist control tidal volume 42 rate of 30 FiO2 75% and PEEP at 16 arterial blood gas reveals a pH of 7.43 pCO2 48 and PO2 84 white blood count is 11.6 hemoglobin 11.3 platelet count 305 d-dimer 1.85 On 03/06/2021 patient was seen and examined in the ICU he is intubated sedated maintained on mechanical ventilation, patient is maintained on assist control tidal volume 420 rate of 30 FiO2 55% and PEEP at 12 arterial blood gas reveals a pH of 7.43 pCO2 49 and PO2 88 white blood count is 11.6 hemoglobin 11.9 platelet count 305 d-dimer 1.7 patient had a sedation holiday today he did well he was alert and following commands On 03/07/2021 patient was seen and examined in the ICU he is intubated sedated maintained on mechanical ventilation patient is maintained on assist control tidal volume 420 rate 32 FiO2 50% with a PEEP of 12 arterial blood gas reveals a pH of 7.44 pCO2 45 and PaO2 of 71 patient is having sedation holidays and is responding well at that time. On 03/08/2021, patient was seen and examined in the ICU he is intubated sedated maintained on mechanical ventilation, arterial blood gas Reveals a pH of 7.45 pCO2 44 PaO2 78 d-dimer 1.84, patient is maintained on assist control rate 32 tidal folium 420 FiO2 50% and a PEEP of 12 On 03/09/2021 patient was seen and examined in the ICU he is intubated sedated maintained on mechanical ventilation, he is scheduled for tracheostomy and PEG tube placement tomorrow, arterial blood gas reveals a pH of 7.4 to pCO2 48 PaO2 73 white blood count is 9.9 hemoglobin 11.6 platelet count 212 d-dimer is elevated at 3.4 Objective - Vital Signs Vital signs: Vital Signs Temp 98.2 F 03/09/21 08:00 Pulse 57 L 03/09/21 08:00 Resp 32 H 03/09/21 08:00 BP 115/64 03/09/21 08:00 Pulse Ox 94 L 03/09/21 08:00 Intake & Output 03/08/21 03/09/21 03/09/21 18:59 06:59 18:59 Intake Total 2398.841 2378.611 313.817 Output Total 3025 3235 510 Balance -626.159 -856.389 -196.183 Weight 132.3 kg Intake: IV 975 868 156 A line Flush 33 6 Ampicillin-Sulbactam 1.5 50 gm In Sodium Chloride 0.9 % 50 ml @ 100 mls/hr IVPB Q6HR TERI Rx#:[id number] Sodium Chloride 0.9% 1, 975 785 150 000 ml @ 10 mls/hr IV . Q24H TERI Rx#:[id number] Intake, IV Titration 761.841 999.611 39.817 Amount Ampicillin-Sulbactam 1.5 50 gm In Sodium Chloride 0.9 % 50 ml @ 100 mls/hr IVPB Q6HR TERI Rx#:[id number] Cisatracurium 200 mg In 95.794 110.927 39.817 Sodium Chloride 0.9% 180 ml @ 1 MCG/KG/MIN 7.756 mls/hr IV .Q24H TERI Rx#: [id number] fentaNYL (PF). 1,000 mcg 230.032 488.684 In Sodium Chloride 0.9% 80 ml @ Per Protocol IV . Q0M TERI Rx#:[id number] propofoL 1,000 mg In 386.015 400 Empty Bag 1 bag @ Titrate IV .Q0M TERI Rx#: [id number] Tube Feeding 572 451 88 Other 90 60 30 Output: Urine 3025 3235 510 Other: Voiding Method Indwelling Catheter Indwelling Catheter # Bowel Movements 1 ABP, PAP, CO, CI - Last Documented Arterial Blood Pressure 103/58 - Exam In general patient is intubated sedated maintained on mechanical ventilation HEENT head normocephalic and atraumatic Neck is supple no JVD no goiter no lymphadenopathy Chest exam reveals a few scattered crackles no wheezing Cardiac exam reveals regular heart sounds no gallops no murmurs Abdomen is soft nontender no organomegaly with normal bowel sounds Extremity exam reveals no edema no cyanosis or clubbing Neurological examination reveals no gross focal deficit - Labs CBC & Chem 7: 03/09/21 05:25 03/09/21 05:25 Labs: Abnormal Lab Results - Last 24 Hours (Table) 03/08/21 03/08/21 03/08/21 Range/Units 11:48 12:07 17:37 RBC (4.30-5.90) m/uL Hgb (13.0-17.5) gm/dL Hct (39.0-53.0) % Neutrophils # (1.3-7.7) k/uL D-Dimer (<0.60) mg/L FEU ABG pCO2 (35-45) mmHg ABG pO2 (83-108) mmHg ABG HCO3 (21-25) mmol/L ABG Total CO2 (19-24) mmol/L Carbon Dioxide (22-30) mmol/L Creatinine (0.66-1.25) mg/dL Glucose (74-99) mg/dL POC Glucose (mg/dL) 128 H 132 H 129 H (75-99) mg/dL Calcium (8.4-10.2) mg/dL AST (17-59) U/L ALT (4-49) U/L Total Protein (6.3-8.2) g/dL Albumin (3.5-5.0) g/dL 03/08/21 03/09/21 03/09/21 Range/Units 23:44 04:57 05:25 RBC 4.05 L (4.30-5.90) m/uL Hgb 11.6 L (13.0-17.5) gm/dL Hct 36.2 L (39.0-53.0) % Neutrophils # 8.2 H (1.3-7.7) k/uL D-Dimer (<0.60) mg/L FEU ABG pCO2 48 H (35-45) mmHg ABG pO2 73 L (83-108) mmHg ABG HCO3 31 H (21-25) mmol/L ABG Total CO2 32 H (19-24) mmol/L Carbon Dioxide (22-30) mmol/L Creatinine (0.66-1.25) mg/dL Glucose (74-99) mg/dL POC Glucose (mg/dL) 123 H (75-99) mg/dL Calcium (8.4-10.2) mg/dL AST (17-59) U/L ALT (4-49) U/L Total Protein (6.3-8.2) g/dL Albumin (3.5-5.0) g/dL 03/09/21 03/09/21 03/09/21 Range/Units 05:25 05:25 06:13 RBC (4.30-5.90) m/uL Hgb (13.0-17.5) gm/dL Hct (39.0-53.0) % Neutrophils # (1.3-7.7) k/uL D-Dimer 3.40 H (<0.60) mg/L FEU ABG pCO2 (35-45) mmHg ABG pO2 (83-108) mmHg ABG HCO3 (21-25) mmol/L ABG Total CO2 (19-24) mmol/L Carbon Dioxide 31 H (22-30) mmol/L Creatinine 0.49 L (0.66-1.25) mg/dL Glucose 112 H (74-99) mg/dL POC Glucose (mg/dL) 105 H (75-99) mg/dL Calcium 8.2 L (8.4-10.2) mg/dL AST 84 H (17-59) U/L ALT 230 H (4-49) U/L Total Protein 4.9 L (6.3-8.2) g/dL Albumin 2.7 L (3.5-5.0) g/dL Microbiology - Last 24 Hours (Table) 03/02/21 09:45 Blood Culture - Final Blood No Growth after 144 hours 03/02/21 09:53 Blood Culture - Final Blood No Growth after 144 hours Assessment and Plan Plan: 1. Acute COVID-19 pneumonia patient started on IV Decadron and subcu Lovenox pulmonary consultation was requested, patient developed acute hypoxic respiratory failure requiring intubation and mechanical ventilation 2. Underlying history of asthma 3. Underlying history of morbid obesity 4. Hyponatremia, patient started on IV normal months leading 5. Elevated liver enzymes, will monitor closely 6. Evidence of ileus patient is maintained on NG tube to suction, surgical consultation following At this time patient was seen and examined in the emergency room he was started on subcu Lovenox and IV dexamethasone, vitamin C and vitamin D and zinc supplements he was also started on inhaled bronchodilators patient will be admitted to medical floor pulmonary consultation was requested. Patient was seen by pulmonary he is maintained on oxygen supplements, IV Decadron, subcu Lovenox, patient has improved since yesterday
--- NOTE | 2021-03-09 17:28 | P.BASOAP ---
Subjective Progress Note Date: 03/09/21 Principal diagnosis: Ileus Patient remains on the ventilator. His Nimbex has been discontinued. Pulmonary requirements slightly improved. Aeration on chest x-ray improved. Patient still felt to require tracheostomy and PEG tube placement by platform loader. Currently scheduled for tomorrow. Otherwise tolerating tube feeds and having bowel function. Objective - Vital Signs Vital signs: Vital Signs Temp 98.2 F 03/09/21 16:00 Pulse 50 L 03/09/21 17:00 Resp 32 H 03/09/21 17:00 BP 104/64 03/09/21 17:00 Pulse Ox 98 03/09/21 17:00 Intake & Output 03/08/21 03/09/21 03/09/21 18:59 06:59 18:59 Intake Total 2398.841 2378.611 1697.619 Output Total 3025 3235 2255 Balance -626.159 -856.389 -557.381 Weight 132.3 kg Intake: IV 975 868 373 A line Flush 33 33 Ampicillin-Sulbactam 1.5 50 50 gm In Sodium Chloride 0.9 % 50 ml @ 100 mls/hr IVPB Q6HR TERI Rx#:[id number] Sodium Chloride 0.9% 1, 975 785 290 000 ml @ 10 mls/hr IV . Q24H TERI Rx#:[id number] Intake, IV Titration 761.841 999.611 750.619 Amount Ampicillin-Sulbactam 1.5 50 gm In Sodium Chloride 0.9 % 50 ml @ 100 mls/hr IVPB Q6HR TERI Rx#:[id number] Cisatracurium 200 mg In 95.794 110.927 57.075 Sodium Chloride 0.9% 180 ml @ 1 MCG/KG/MIN 7.756 mls/hr IV .Q24H TERI Rx#: [id number] fentaNYL (PF). 1,000 mcg 230.032 488.684 393.544 In Sodium Chloride 0.9% 80 ml @ Per Protocol IV . Q0M TERI Rx#:[id number] propofoL 1,000 mg In 386.015 400 300.000 Empty Bag 1 bag @ Titrate IV .Q0M TERI Rx#: [id number] Tube Feeding 572 451 484 Other 90 60 90 Output: Urine 3025 3235 2255 Other: Voiding Method Indwelling Catheter Indwelling Catheter Indwelling Catheter # Bowel Movements 1 ABP, PAP, CO, CI - Last Documented Arterial Blood Pressure 92/56 - Exam Abdomen: Soft, nontender, nondistended - Labs CBC & Chem 7: 03/09/21 05:25 03/09/21 05:25 Labs: Abnormal Lab Results - Last 24 Hours (Table) 03/08/21 03/08/21 03/09/21 Range/Units 17:37 23:44 04:57 RBC (4.30-5.90) m/uL Hgb (13.0-17.5) gm/dL Hct (39.0-53.0) % Neutrophils # (1.3-7.7) k/uL D-Dimer (<0.60) mg/L FEU ABG pCO2 48 H (35-45) mmHg ABG pO2 73 L (83-108) mmHg ABG HCO3 31 H (21-25) mmol/L ABG Total CO2 32 H (19-24) mmol/L Carbon Dioxide (22-30) mmol/L Creatinine (0.66-1.25) mg/dL Glucose (74-99) mg/dL POC Glucose (mg/dL) 129 H 123 H (75-99) mg/dL Calcium (8.4-10.2) mg/dL Ferritin (22.0-322.0) ng/mL AST (17-59) U/L ALT (4-49) U/L Total Protein (6.3-8.2) g/dL Albumin (3.5-5.0) g/dL 03/09/21 03/09/21 03/09/21 Range/Units 05:25 05:25 05:25 RBC 4.05 L (4.30-5.90) m/uL Hgb 11.6 L (13.0-17.5) gm/dL Hct 36.2 L (39.0-53.0) % Neutrophils # 8.2 H (1.3-7.7) k/uL D-Dimer 3.40 H (<0.60) mg/L FEU ABG pCO2 (35-45) mmHg ABG pO2 (83-108) mmHg ABG HCO3 (21-25) mmol/L ABG Total CO2 (19-24) mmol/L Carbon Dioxide 31 H (22-30) mmol/L Creatinine 0.49 L (0.66-1.25) mg/dL Glucose 112 H (74-99) mg/dL POC Glucose (mg/dL) (75-99) mg/dL Calcium 8.2 L (8.4-10.2) mg/dL Ferritin 1351.1 H (22.0-322.0) ng/mL AST 84 H (17-59) U/L ALT 230 H (4-49) U/L Total Protein 4.9 L (6.3-8.2) g/dL Albumin 2.7 L (3.5-5.0) g/dL 03/09/21 03/09/21 Range/Units 06:13 11:51 RBC (4.30-5.90) m/uL Hgb (13.0-17.5) gm/dL Hct (39.0-53.0) % Neutrophils # (1.3-7.7) k/uL D-Dimer (<0.60) mg/L FEU ABG pCO2 (35-45) mmHg ABG pO2 (83-108) mmHg ABG HCO3 (21-25) mmol/L ABG Total CO2 (19-24) mmol/L Carbon Dioxide (22-30) mmol/L Creatinine (0.66-1.25) mg/dL Glucose (74-99) mg/dL POC Glucose (mg/dL) 105 H 125 H (75-99) mg/dL Calcium (8.4-10.2) mg/dL Ferritin (22.0-322.0) ng/mL AST (17-59) U/L ALT (4-49) U/L Total Protein (6.3-8.2) g/dL Albumin (3.5-5.0) g/dL Assessment/Plan (1) Ileus Narrative/Plan: Respiratory failure. We'll proceed with tracheostomy and PEG tube placement tomorrow. I called the patient's mother to speak with her by phone and left a message. I will continue trying. Plan: Date: 02/24/21 Initial Weight: Initial BMI: Current Weight: 132.3 kg Current BMI: 43.4 Type of Surgery: Total Volume in Band: Previous Volume: Volume Removed: Volume Added: Band Size:
[2021-03-09 18:05] LABS: Glucose,Whole Blood 111 mg/dL (75-99)
[2021-03-10] MEDS: METOCLOPRAMIDE 5 MG/ML 2 ML VIAL IVP SCH ×5 (00:08→23:14)
[2021-03-10 00:28] LABS: Glucose,Whole Blood 113 mg/dL (75-99)
[2021-03-10] MEDS: fentaNYL (PF). 1,000 MCG in SODIUM CHLORIDE 0.9% 80 ML IV SCH ×10 (00:55→23:45)
[2021-03-10 05:09] LABS: ABG Base Excess 6.6 mmol/L; ABG HCO3 31 mmol/L (21-25); ABG Oxygen Saturation 93.2 % (94-97); ABG PCO2 43 mmHg (35-45); ABG PH 7.46 (7.35-7.45); ABG PO2 66 mmHg (83-108); ABG TCO2 32 mmol/L (19-24)
[2021-03-10 05:33] LABS: Basophils % (A) 0 %; Eosinophils # (A) 0.1 k/uL (0-0.7); Eosinophils % (A) 1 %; HCT 33.7 % (39.0-53.0); HGB 11.5 gm/dL (13.0-17.5); Lymphocytes # (A) 1.2 k/uL (1.0-4.8); Lymphocytes % (A) 12 %; MCH 30.3 pg (25.0-35.0); MCHC 34.3 g/dL (31.0-37.0); MCV 88.4 fL (80.0-100.0); Mean Platelet Volume 9.5; Monocytes # (A) 0.4 k/uL (0-1.0); Monocytes % (A) 3 %; Neutrophils # (A) 8.5 k/uL (1.3-7.7); Neutrophils % (A) 83 %; Platelet Count 196 k/uL (150-450); RBC 3.81 m/uL (4.30-5.90); RDW 13.9 % (11.5-15.5); WBC 10.2 k/uL (3.8-10.6)
[2021-03-10 05:41] LABS: Allen Test Performed? no
[2021-03-10 05:48] LABS: ALT 263 U/L (4-49); AST 77 U/L (17-59); African American GFR (CKD) >90 (>60 ml/min/1.73 sqM); Albumin 2.8 g/dL (3.5-5.0); Alkaline Phosphatase 47 U/L (38-126); Anion Gap 2 mmol/L; Blood Urea Nitrogen 16 mg/dL (9-20); C Reactive Protein <0.5 mg/dL (<1.0); Calcium 8.4 mg/dL (8.4-10.2); Carbon Dioxide 30 mmol/L (22-30); Chloride 105 mmol/L (98-107); Glucose 107 mg/dL (74-99); Non-African American GFR(CKD) >90 (>60 ml/min/1.73 sqM); Potassium 4.3 mmol/L (3.5-5.1); Sodium 137 mmol/L (137-145); Total Bilirubin 0.5 mg/dL (0.2-1.3)
[2021-03-10 06:07] LABS: Glucose,Whole Blood 108 mg/dL (75-99)
[2021-03-10] MEDS: AMPICILLIN-SULBACTAM 1.5 GM in SODIUM CHLORIDE 0.9% 50 ML IVPB SCH ×4 (06:17→23:14)
[2021-03-10 06:28] LABS: D-Dimer 4.93 mg/L FEU (<0.60); INR 1.1 (<1.2); Prothrombin Time 11.4 sec (9.0-12.0)
[2021-03-10 06:34] LABS: Partial Thromboplastin Time 19.2 sec (22.0-30.0)
[2021-03-10] MEDS: bisacodyL 10 MG SUPP RECTAL SCH (07:26)
[2021-03-10] MEDS: ENOXAPARIN 40 MG/0.4 ML SYRINGE SQ SCH (07:31)
[2021-03-10] MEDS: DEXAMETHASONE SOD PHOSPHATE 10 MG/ML 1 ML VIAL IV SCH ×2 (07:32→20:58)
[2021-03-10] MEDS: PANTOPRAZOLE 40 MG/10 ML VIAL IV SCH (07:33)
[2021-03-10] MEDS: CHLORHEXIDINE GLUCONATE 15 ML CUP MUCOUS MEM SCH ×2 (07:33→20:58)
[2021-03-10] MEDS: ALBUTEROL HFA INHALER INHALATION SCH ×4 (07:36→21:20)
--- NOTE | 2021-03-10 10:07 | P.PN ---
Subjective Progress Note Date: 03/10/21 Principal diagnosis: Shortness of breath. Progress note dated 02/27/2021. 35-year-old male admitted with a diagnosis of acute hypoxemic respiratory failure secondary to COVID 19 pneumonia. Chest x-ray showed multifocal bilateral infiltrates. In addition, the patient is morbidly obese, likely has sleep apnea syndrome, has lymphopenia, hyponatremia, and elevated liver function tests, all secondary to COVID 19. Currently, the patient's on saline at 75 mL an hour, and high flow nasal O2 at 15 L/m. White count 6.2, hemoglobin 13.8, hematocrit 39.0, and platelet count 262,000. D-dimer is 1.51. Sodium 127, potassium 4, chlorides 94, CO2 25, anion gap 8, BUN 13, creatinine 0.81. LDH is 1969, and C-reactive protein is 8.9. Chest x-ray shows bilateral infiltrates. Progress note dated 02/28/2021. 35-year-old male with a diagnosis of acute hypoxemic respiratory failure secondary to COVID 19 pneumonia. Chest x-ray showed multifocal bilateral infiltrates. The patient also has obesity, sleep apnea syndrome, lymphopenia, hyponatremic, and liver function abnormalities, all consistent with coronavirus infection. Yesterday, the patient was on high flow nasal O2, and nonrebreather mask. This morning, the respiratory therapist switch him over to AIRVO, at 60 L/m and 90% FiO2. The patient is not receiving any IV fluids. D-dimer is 4.62. Progress note dated 03/06/2021. 35-year-old male that I saw last on February 28. The patient was admitted on the , and was intubated on the . I saw him last on February 28. He was admitted with a diagnosis of COVID 19 pneumonia. Currently, the patient's on the volume assist control mode, rate 32, tidal volume 420, FiO2 55% to be dropped down to 80%, and PEEP 16. Blood gases show a PaO2 of 88, PaCO2 49, pH is 7.42. The patient's currently on Nimbex at 2 mcg/kg/m, propofol at 40 mcg/kg/m, fentanyl at 1 mcg/kg/h, saline at 75 mL an hour, and vital high protein at 30 mL an hour, with a goal of 52. The patient will get a daily interruption of sedation today. He may benefit from a spontaneous breathing trial, we'll have to see. Currently, his PEEP values still quite high. White count 11.9, hemoglobin 11.4, hematocrit 36, and platelet count 265,000. D-dimer is 1.7. Sodium 133, potassium 4.8, chlorides 100, CO2 31, anion gap 2, BUN 21, and creatinine 0.63. LDH is 938, and C-reactive protein is 0.8. Chest x-ray shows diffuse bilateral infiltrates, which may be a bit improved. Progress note dated 03/07/2021. 35-year-old male, who is again seen in room 255. The patient remains on the mechanical ventilator. The patient was initially admitted on February 24, and was intubated on March 01. Ventilator settings include the volume assist control mode, rate 32, tidal volume 420, FiO2 50%, PEEP of 12. Arterial blood gases show a PaO2 of 71, pCO2 45, and pH is 7.44. The patient's currently on Nimbex at 1 mcg/kg/m, propofol at 40 mcg/kg/m, and fentanyl at 1 mcg/kg/h. Patient's getting saline at 75 mL an hour, and vital high protein at 52 mL an hour, which is goal. White count 9.8, hemoglobin 11.4, hematocrit 33.1, and platelet count is 234,000. D-dimer 1.73. Sodium 131, potassium 4.6, chlorides 101, CO2 30, anion gap is 0. BUN 20, creatinine 0.56. LDH is 895. Chest x-ray shows stable diffuse bilateral infiltrates. Progress note dated 03/08/2021. 35-year-old male, seen again in room 255. The patient remains on the mechanical ventilator. The patient is on the volume assist control mode, rate 32, tidal volume 420, FiO2 50%, PEEP of 12. Blood gases show pO2 78, pCO2 44, pH 7.45. The patient is currently on fentanyl 1.4 mcg/kg/h, propofol, at 50 mcg/kg/m, Nimbex at 1.5 mcg/kg/m, saline at 75 mL an hour, Cleveprex, currently on hold, and vital high protein at 44 mL an hour, which is goal. The PEEP will be dropped from 12 to 10. In addition, we've asked surgery to consider doing a tracheostomy tube and PEG tube placement. Current labs include a white count 9, hemoglobin 11.5, hematocrit 33.1, and platelet count 227,000. D-dimer is 1.84. Sodium 136, potassium 4.5, chlorides 104, CO2 31, anion gap 1, BUN 16, creatinine 0.5 to, C-reactive protein less than 0.5, and LDH 902. No chest x- ray today. The chest x-ray yesterday showed diffuse bilateral stable infiltrat es. Progress note dated 03/09/2021. 35-year-old male, again seen, and room 255. In the hospital now for 13 days, admitted on 02/24/2021. The patient remains on the mechanical ventilator. The patient is scheduled for tracheostomy and PEG tube placement on Saturday. The patient is on a volume assist control mode, rate 32, tidal volume 420, FiO2 50%, and PEEP of 10. Blood gases show a PaO2 of 73, pCO2 48, and a pH is 7.42. The patient's currently on Nimbex at 2 mcg/kg/m, propofol at 50 mcg/kg/m, fentanyl at 3 mcg/kg/h, saline at 10 mL an hour, and vital high 13 at goal, which is 44 mL an hour. We will attempt to discontinue the Nimbex today. Previous attempts of daily interruption of sedation have not been beneficial. White count 9.9, hemoglobin 11.6, hematocrit 36.2, platelet count 312,000. D-dimer 3.4, sodium 139, potassium 4.3, chlorides 106, CO2 31, anion gap 2, BUN and creatinine were 17, and 0.49 respectively. Chest x-ray show some improvement in aeration in the left lower lobe. Progress note dated 03/10/2021. 35-year-old white male, who is going to have a tracheostomy and PEG tube placed today. The surgery was done by Dr. Vargas. The patient is again seen today in room 255. He's been in the hospital now for 14 days. The patient remains on mechanical ventilator. He is on the volume assist control mode, rate 32, tidal volume 420, FiO2 50%, PEEP of 10. Blood gases show pO2 66, pCO2 43, pH 7.46. The patient's on propofol at 35 mcg/kg/m, and fentanyl at 3 mcg/kg per hour. Nimbex has been discontinued. He is getting saline at 25 mL an hour. Tube feedings are currently on hold. White count 10.2, hemoglobin 11.5, hematocrit 33.7, platelet count 196,000. D-dimer 4.93. Fibrinogen 156. Sodium 137, potassium 4.3, chlorides 105, CO2 30, anion gap 2, BUN 16, creatinine 0.57. Chest x-ray continues to show bilateral infiltrates. Objective - Vital Signs Vital signs: Vital Signs Temp 98.8 F 03/10/21 08:00 Pulse 51 L 03/10/21 08:00 Resp 32 H 03/10/21 08:00 BP 110/59 03/10/21 08:00 Pulse Ox 98 03/10/21 08:00 Intake & Output 03/09/21 03/10/21 03/10/21 18:59 06:59 18:59 Intake Total 7406.175 2882.729 240.030 Output Total 2430 1745 175 Balance -583.657 -285.271 65.030 Weight 131.3 kg Intake: IV 391 256 81 A line Flush 36 36 6 Ampicillin-Sulbactam 1.5 50 110 50 gm In Sodium Chloride 0.9 % 50 ml @ 100 mls/hr IVPB Q6HR TERI Rx#:[id number] Sodium Chloride 0.9% 1, 305 110 25 000 ml @ 10 mls/hr IV . Q24H TERI Rx#:[id number] Intake, IV Titration 837.343 879.729 159.030 Amount Cisatracurium 200 mg In 57.075 Sodium Chloride 0.9% 180 ml @ 1 MCG/KG/MIN 7.756 mls/hr IV .Q24H TERI Rx#: [id number] fentaNYL (PF). 1,000 mcg 443.224 417.944 88.128 In Sodium Chloride 0.9% 80 ml @ Per Protocol IV . Q0M [facility]I Rx#:[id number] propofoL 1,000 mg In 337.044 461.785 70.902 Empty Bag 1 bag @ Titrate IV .Q0M TERI Rx#: [id number] Tube Feeding 528 264 Other 90 60 Output: Urine 2430 1745 175 Other: Voiding Method Indwelling Catheter Indwelling Catheter Indwelling Catheter # Bowel Movements 1 ABP, PAP, CO, CI - Last Documented Arterial Blood Pressure 88/52 - Exam Sedated, and paralyzed, with an orally placed endotracheal tube. Saturation is 98%. HEENT examination is grossly unremarkable. Neck supple. Full range of motion. No adenopathy thyromegaly or neck vein distention. Cardiovascular examination reveals regular rhythm rate. S1-S2 normal. No S3 or S4. No discernible murmur noted. Heart sounds are distant. Heart rate is 51 bpm. Lungs reveal bilateral diffuse coarse rhonchi and wheezes. Breath sounds equal bilaterally. There are no crackles. Abdomen soft bowel sounds are heard. No masses or tenderness. Extremities are intact. No cyanosis clubbing or edema. Skin is without rash or lesion. Neurologic examination cannot be adequately assessed as the patient's currently sedated and paralyzed. - Labs CBC & Chem 7: 03/10/21 05:10 03/10/21 05:10 Labs: Abnormal Lab Results - Last 24 Hours (Table) 03/09/21 03/09/21 03/10/21 Range/Units 11:51 18:04 00:27 RBC (4.30-5.90) m/uL Hgb (13.0-17.5) gm/dL Hct (39.0-53.0) % Neutrophils # (1.3-7.7) k/uL APTT (22.0-30.0) sec Fibrinogen (200-500) mg/dL D-Dimer (<0.60) mg/L FEU ABG pH (7.35-7.45) ABG pO2 (83-108) mmHg ABG HCO3 (21-25) mmol/L ABG Total CO2 (19-24) mmol/L ABG O2 Saturation (94-97) % Creatinine (0.66-1.25) mg/dL Glucose (74-99) mg/dL POC Glucose (mg/dL) 125 H 111 H 113 H (75-99) mg/dL AST (17-59) U/L ALT (4-49) U/L Total Protein (6.3-8.2) g/dL Albumin (3.5-5.0) g/dL 03/10/21 03/10/21 03/10/21 Range/Units 05:07 05:10 05:10 RBC 3.81 L (4.30-5.90) m/uL Hgb 11.5 L (13.0-17.5) gm/dL Hct 33.7 L (39.0-53.0) % Neutrophils # 8.5 H (1.3-7.7) k/uL APTT (22.0-30.0) sec Fibrinogen (200-500) mg/dL D-Dimer (<0.60) mg/L FEU ABG pH 7.46 H (7.35-7.45) ABG pO2 66 L (83-108) mmHg ABG HCO3 31 H (21-25) mmol/L ABG Total CO2 32 H (19-24) mmol/L ABG O2 Saturation 93.2 L (94-97) % Creatinine 0.57 L (0.66-1.25) mg/dL Glucose 107 H (74-99) mg/dL POC Glucose (mg/dL) (75-99) mg/dL AST 77 H (17-59) U/L ALT 263 H (4-49) U/L Total Protein 5.0 L (6.3-8.2) g/dL Albumin 2.8 L (3.5-5.0) g/dL 03/10/21 03/10/21 Range/Units 05:10 06:05 RBC (4.30-5.90) m/uL Hgb (13.0-17.5) gm/dL Hct (39.0-53.0) % Neutrophils # (1.3-7.7) k/uL APTT 19.2 L (22.0-30.0) sec Fibrinogen 156 L (200-500) mg/dL D-Dimer 4.93 H (<0.60) mg/L FEU ABG pH (7.35-7.45) ABG pO2 (83-108) mmHg ABG HCO3 (21-25) mmol/L ABG Total CO2 (19-24) mmol/L ABG O2 Saturation (94-97) % Creatinine (0.66-1.25) mg/dL Glucose (74-99) mg/dL POC Glucose (mg/dL) 108 H (75-99) mg/dL AST (17-59) U/L ALT (4-49) U/L Total Protein (6.3-8.2) g/dL Albumin (3.5-5.0) g/dL Assessment and Plan Assessment: Acute hypoxemic respiratory failure, secondary to COVID 19 pn eumonia/pneumonitis, requiring intubation and mechanical ventilation on 03/01/2021. Failure to progress on mechanical ventilation, with anticipated tracheostomy tube placement and PEG tube placement, on 03/10/2021. Acute ileus, requiring decompression with nasogastric tube. Methicillin sensitive staph aureus and Moraxella catarrhalis tracheobronchitis/bronchopneumonia, currently on Unasyn. Morbid obesity. Possible sleep apnea syndrome. Lymphopenia. Elevated liver function tests, secondary to coronavirus infection. Hyponatremia, resolved. Plan: Plan dated 02/27/2021. The patient remains on saline 75 mL an hour, and nasal O2, high flow, and 15 L/m. The patient remains on Decadron and Lovenox. The patient was outside the window for REM. We will continue to follow. Prognosis is guarded. No additional recommendations are made. Plan dated 02/28/2021. The patient was placed on AIRVO. He seems to be more comfortable on this modality of providing him oxygen therapy. The patient is not receiving any IV fluids. Currently his medications appear to be appropriate including albuterol inhaler, vitamin C, vitamin D3, Decadron, Lovenox, and zinc. Additional recomme ndations and suggestions are forthcoming. We will continue to follow. The patient was outside the window for REM. Plan dated 03/06/2021. Unfortunately, the patient required intubation and mechanical ventilation on March 01. The patient currently remains on the mechanical ventilator. It's too soon to consider tracheostomy and PEG tube placement. We will attempt a daily interruption of sedation. In addition, we'll attempt to reduce the PEEP levels. The patient remains on propofol, Nimbex, and fentanyl. We'll attempt to get him off the Nimbex first. We will continue to follow make recommendations were appropriate. Prognosis is guarded. The patient may end up requiring a tracheostomy tube and PEG tube Plan dated 03/07/2021. The patient remains on Nimbex, propofol, and fentanyl. The patient is getting appropriate nutrition with vital high protein running at goal, which is 52 mL an hour. The patient may end up with a tracheostomy tube and PEG tube, should he not improve further as the week progresses. We will continue to follow the patient and make recommendations were appropriate. We will also do a daily interruption of sedation. He did reasonably well with his yesterday, although he did get agitated, started biting his endotracheal tube, and high pressuring the ventilator. Prognosis is guarded. Additional recommendations and suggestions are forthcoming. Plan dated 03/08/2021. Currently, the patient remains on fentanyl, propofol, and Nimbex. We'll ask surgery to this evaluate the patient for possible tracheostomy and PEG tube placement. We'll also make a PEEP change from 12 cm water, down to 10 cm water. The patient has not made much progress in the process of weaning and liberation from mechanical ventilation. Additional recommendations and suggestions are forthcoming. The patient becomes very agitated and started biting the endotracheal tube with daily interruption of sedation. We will continue to follow make recommendations were appropriate. Prognosis is very guarded. Plan dated 03/09/2021. The patient is on scheduled for a tracheostomy and PEG tube placement tomorrow. Currently, he remains on Nimbex, propofol, and fentanyl. We'll attempt again to get him off the Nimbex. Prior attempts at daily interruption of sedation, has not gone well. The patient is getting nutrition with vital high protein at goal. Additional recommendations and suggestions are forthcoming. Prognosis is guarded. We will continue to follow the patient closely and make recommendations where appropriate. Plan dated 03/10/2021. Currently, the patient will have a tracheostomy and PEG tube placed today. The surgeon is Dr. Vargas. The patient remains on propofol, and fentanyl. Nimbex has been weaned off. Tube feeds are on hold. Labs, x-rays, and medications are reviewed. Prognosis is guarded. I believe tracheostomy would be the best way to get the patient eventually weaned off mechanical ventilation. We will continue to follow along, and make recommendations were appropriate. Time with Patient: Greater than 30
--- NOTE | 2021-03-10 10:42 | XR ---
EXAMINATION TYPE: XR chest 1V DATE OF EXAM: 03/10/2021 COMPARISON: Chest x-ray 03/09/2021 HISTORY: Shortness of breath, intubated TECHNIQUE: Single frontal view of the chest is obtained. FINDINGS: Endotracheal tube, orogastric tube, left-sided PICC line are overlying appropriate positio ns. There is bilateral airspace disease, left hemidiaphragm is obscured. Cardiomediastinal silhouette is stable. There is no evident pneumothorax or sizable pleural effusion. There are overlying artifac ts. Exam is expiratory. Patient is rotated. IMPRESSION: Similar findings, correlate for pneumonia. Expiratory rotated exam.
[2021-03-10 12:14] LABS: Glucose,Whole Blood 109 mg/dL (75-99)
[2021-03-10 13:32] LABS: Ferritin 1230.7 ng/mL (22.0-322.0)
[2021-03-10] MEDS ORDERED: KETAMINE 10 MG/ML 20 ML VIAL ONE (14:08)
[2021-03-10] MEDS ORDERED: ROCURONIUM 10 MG/ML (5 ML VIAL) IV ONE (14:08)
[2021-03-10] MEDS ORDERED: fentaNYL (PF) 50 MCG/ML 2 ML AMP ONE (14:08)
[2021-03-10] MEDS ORDERED: MIDAZOLAM 2 MG/2 ML VIAL ONE (14:08)
[2021-03-10] MEDS ORDERED: IV FLUID CONTINUATION 1,000 ML IV ONE (14:16)
--- NOTE | 2021-03-10 15:48 | P.OP ---
Date of Procedure: 03/10/21 Procedure(s) Performed: PREOPERATIVE DIAGNOSIS: Respiratory failure, malnutrition POSTOPERATIVE DIAGNOSIS: Same PROCEDURE: Tracheostomy, EGD with PEG tube placement SURGEON: Alicia EBL: Minimal ANESTHESIA: General COMPLICATIONS: None OPERATIVE PROCEDURE: Patient was placed in the operative table in the supine position. A shoulder roll was utilized. The neck was prepped and draped in usual sterile fashion. The skin was infiltrated with local anesthesia. A small cervical incision was created using the scalpel. Dissection through the subcutaneous fat and platysma layer took place using electrocautery. The underlying strap muscles were divided in the midline. The thyroid isthmus was divided using electrocautery as well. No bleeding was seen. The trachea was easily identified at this time. The endotracheal tube was advanced and the balloon was reinflated. The patient was preoxygenated with 100% FiO2. The FiO2 was then brought down to room air. Once the end title oxygen level was less than 35 a vertical tracheostomy was created using the electrocautery. This went through the second and third tracheal ring. The patient was again preoxygenated with 100% FiO2. The media senior recruiter was utilized. Carefully the endotracheal tube was withdrawn just proximal to our tracheostomy. The 8-Cameroonian Shiley nonfenestrated tracheostomy catheter was advanced under direct visualization into the trachea. This was then connected to the ventilator. Positive end tidal CO2 was confirmed. The tracheal ties were utilized. The trach was sutured to the skin superiorly using 2 separate 0 silk sutures. The skin was closed using 3-0 Vicryl sutures. A dressing was applied. The patient was kept in the supine position on the operating room table. The Olympus gastroscope was inserted into the oropharynx and passed under direct visualization to the region of the duodenum. No obstruction was seen. The pylorus was widely patent. The stomach was carefully inspected. The stomach was fully insufflated with air. The abdominal wall was inspected. The light was seen shining through the abdominal wall in the left upper quadrant. This site was chosen for PEG tube placement. The area was prepped in the usual sterile fashion. A small vertical incision was made using the scalpel. 3 separate stay sutures were placed in a triangular fashion around the anticipated PEG tube site. Following that the needle was advanced into the lumen of the stomach. It should be noted that the needle was first advanced and under suction no air was encountered until the stomach was reached. The wire was then advanced through the needle. The needle was withdrawn. The sequential dilators were utilized. This was a 24-Cameroonian dilator eventually reached. The 20-Cameroonian balloon gastrostomy replacement tube was then advanced through the 24-Cameroonian sheath and the sheath was removed. The balloon was inflated with 8 mL of water. This was pulled to the anterior abdominal wall with the bolster was tightened. All of the stay sutures were secured down prior to doing so and locked as well. There was no evidence of any bleeding and there was appropriate tightness on the bolster. DISPOSITION: Stable to ICU
[2021-03-10] MEDS: CLEVIDIPINE BUTYRATE 25 MG in EMPTY BAG 1 BAG IV SCH (16:14)
[2021-03-10 17:34] LABS: Glucose,Whole Blood 95 mg/dL (75-99)
[2021-03-10] MEDS: SODIUM CHLORIDE 0.9% 1,000 ML IV SCH (21:03)
[2021-03-10 23:24] LABS: Glucose,Whole Blood 100 mg/dL (75-99)
[2021-03-11] MEDS: fentaNYL (PF). 1,000 MCG in SODIUM CHLORIDE 0.9% 80 ML IV SCH ×7 (02:18→21:13)
[2021-03-11 04:23] LABS: HCT 34.3 % (39.0-53.0); HGB 11.3 gm/dL (13.0-17.5); MCH 29.5 pg (25.0-35.0); MCHC 32.9 g/dL (31.0-37.0); MCV 89.6 fL (80.0-100.0); Mean Platelet Volume 9.9; Platelet Count 201 k/uL (150-450); RBC 3.83 m/uL (4.30-5.90); RDW 14.9 % (11.5-15.5); WBC 12.7 k/uL (3.8-10.6)
[2021-03-11 05:00] LABS: ALT 265 U/L (4-49); AST 78 U/L (17-59); African American GFR (CKD) >90 (>60 ml/min/1.73 sqM); Albumin 2.8 g/dL (3.5-5.0); Alkaline Phosphatase 44 U/L (38-126); Anion Gap 1 mmol/L; Blood Urea Nitrogen 17 mg/dL (9-20); C Reactive Protein 0.6 mg/dL (<1.0); Calcium 8.3 mg/dL (8.4-10.2); Carbon Dioxide 29 mmol/L (22-30); Chloride 106 mmol/L (98-107); Glucose 103 mg/dL (74-99); LDH 775 U/L (313-618); Non-African American GFR(CKD) >90 (>60 ml/min/1.73 sqM); Potassium 4.2 mmol/L (3.5-5.1); Sodium 136 mmol/L (137-145); Total Bilirubin 0.6 mg/dL (0.2-1.3)
[2021-03-11 05:29] LABS: ABG Base Excess 5.7 mmol/L; ABG HCO3 30 mmol/L (21-25); ABG Oxygen Saturation 96.1 % (94-97); ABG PCO2 41 mmHg (35-45); ABG PH 7.46 (7.35-7.45); ABG PO2 81 mmHg (83-108); ABG TCO2 31 mmol/L (19-24); Allen Test Performed? Yes
[2021-03-11] MEDS: METOCLOPRAMIDE 5 MG/ML 2 ML VIAL IVP SCH ×4 (05:51→23:13)
[2021-03-11] MEDS: AMPICILLIN-SULBACTAM 1.5 GM in SODIUM CHLORIDE 0.9% 50 ML IVPB SCH ×2 (05:51→11:31)
--- NOTE | 2021-03-11 07:13 | XR ---
EXAMINATION TYPE: XR chest 1V portable DATE OF EXAM: 03/11/2021 COMPARISON: 03/10/2021 HISTORY: Shortness of breath TECHNIQUE: Single frontal view of the chest is obtained. FINDINGS: There are partially consolidative opacities in the lower lung zones and to a lesser extent in the right upper lobe. There is no large pleural effusion. There is no pneumothorax. There is a le ft arm PICC line terminating in the SVC/RA junction. There is been interval removal of the ET tube an d placement of a tracheostomy tube. The heart size is normal and the pulmonary vasculature is not congested. The osseous structures are i ntact. IMPRESSION: No change in the appearance of the lungs. Interval removal of the ET tube and placement of a tracheostomy tube.
[2021-03-11] MEDS: ALBUTEROL HFA INHALER INHALATION SCH ×4 (08:12→20:55)
[2021-03-11] MEDS: DEXAMETHASONE SOD PHOSPHATE 10 MG/ML 1 ML VIAL IV SCH ×2 (08:31→20:32)
[2021-03-11] MEDS: PANTOPRAZOLE 40 MG/10 ML VIAL IV SCH (08:31)
[2021-03-11] MEDS: ENOXAPARIN 40 MG/0.4 ML SYRINGE SQ SCH (08:31)
[2021-03-11] MEDS: bisacodyL 10 MG SUPP RECTAL SCH (08:31)
[2021-03-11] MEDS: CHLORHEXIDINE GLUCONATE 15 ML CUP MUCOUS MEM SCH ×2 (08:31→20:32)
--- NOTE | 2021-03-11 09:07 | P.PN ---
Subjective Progress Note Date: 03/10/21 Osmar Drummond, is a 35-year-old male patient of Dr. Hdz, who presented to [facility] emergency room with a chief complaint of worsening shortness of breath and chest tightness. Patient was also having persistent cough his symptoms started 12 days ago however he had severe worsening of his symptoms in the last 3 days. He stated that last Saturday he was tested for COVID-19, results came back positive on Saturday. He was evaluated in the emergency room vital examination on presentation revealed a temperature of 103 pulse 92 respiration 18 blood pressure 124/77 pulse ox 92% on room air. White blood count was 4.2 hemoglobin 15.4 platelet count 161 sodium 125 potassium 3.9 chloride 88 calcium 7.8 BUN 8 creatinine 0.94 AST 98 ALT 57 LDH 1623 C-reactive protein 41.1 EKG done in the emergency room revealed normal sinus rhythm normal EKG, chest x-ray done in the emergency room revealed patchy bilateral infiltrates compatible with multifocal pneumonia no pneumothorax. Patient was admitted to medical floor pulmonary consultation was requested. On 02/25/2021 patient was seen and examined on the medical floor he is alert and oriented 3 in no distress, he is still complaining of cough and shortness of breath otherwise he denies any complaints there is no fever or chills no hea dache or dizziness no chest pain no nausea or vomiting no abdominal pain no diarrhea no blood in the stools no burning was urination no frequency or urgency and no hematuria. On 02/26/2021 patient was seen and examined on the medical floor he is alert and oriented 3 in no distress he seems to be worse today he is having more tachycardia and tachypnea, his temperature is 99.8 pulse ox is down to 82% on 15 L high flow cannula inflammatory markers are up his LDH is 1735 up from 1440 yesterday C-reactive protein is up to 7.2 up from 6 yesterday d-dimer is up to 1.21 up from 0.77 yesterday, at this time patient is maintained on inhaled bronchodilators, IV Decadron, subcu Lovenox,, repeat chest x-ray done today reveals by basilar infiltrates and opacities consistent with COVID-19 infection without any significant change from previous x-ray on 02/27/2021 patient was seen and examined on the medical floor, he is alert and oriented 3 in no apparent distress he is reporting some improvement in his shortness of breath, vital exam reveals a temperature of 99.1 pulse 102 respiration 20 blood pressure 121/84 pulse ox 87% on 15 L high flow cannula, white blood count is 6.2 hemoglobin 13.8 platelet count 262 d-dimer 1.51 sodium 127 potassium 4.0 chloride 94 CO2 25 BUN 13 creatinine 0.81 LDH 1969 C-reactive protein up to 8.9, patient is complaining of cough and shortness of breath otherwise he denies any complaints there is no fever or chills no headache or dizziness no chest pain no nausea or vomiting no abdominal pain no diarrhea no blood in the stools no burning with urination no frequency or urgency and no hematuria On 02/28/2021 patient was seen and examined on the medical floor he is alert and oriented 3 in no apparent distress, he is still maintained on Airvo with FiO2 of 90% his temperature is 98.7 pulse 116 respiration 28 blood pressure 145/81 pulse ox 93% he is complaining of shortness of breath and occasional cough otherwise he denies any complaints there is no fever or chills no headache or dizziness no chest pain no nausea or vomiting no abdominal pain no diarrhea no blood in the stools no burning with urination no frequency or urgency and no hematuria. On 03/01/2021 patient was seen and examined in the ICU he is intubated sedated maintained on mechanical ventilation air this morning patient was having worsening shortness of breath and decreased O2 sat duration despite Airvo, he was transferred to ICU and was intubated. Currently patient is on assist c ontrol tidal volume of 400 rate of 30 FiO2 100% and PEEP of 10 arterial blood gas reveals a pH of 7.24 pCO2 55 PO2 78 sodium is 127 LDH 2034 C-reactive protein 4.5 pulmonary are following closely On 03/02/2021 patient was seen and examined in the ICU he is intubated sedated maintained on mechanical ventilation air this morning patient was having worsening shortness of breath and decreased O2 sat duration despite Airvo, he was transferred to ICU and was intubated. Currently patient is on assist control tidal volume of 400 rate of 30 FiO2 100% and PEEP of 10 arterial blood gas reveals a pH of 7.24 pCO2 55 PO2 78 sodium is 127 LDH 203 C-reactive protein 4.5 pulmonary are following closely. Patient has evidence of ileus, he is maintained on NG tube to suction, surgical consultation was requested. On 03/03/2021 patient was seen and examined in the ICU he is intubated sedated maintained on mechanical ventilation air this morning patient was having worsening shortness of breath and decreased O2 sat duration despite Airvo, he was transferred to ICU and was intubated. Currently patient is on assist control tidal volume of 420 rate of 30 FiO2 85 % and PEEP of 16 arterial blood gas reveals a pH of 7.39 pCO2 55 PO2 66 sodium is 134 LDH 2034 C-reactive protein 4.5 pulmonary are following closely. Patient has evidence of ileus, he is maintained on NG tube to suction, surgical consultation was requested. On 03/04/2021 patient was seen and examined in the ICU he is intubated sedated maintained on mechanical ventilation air this morning patient was having worsening shortness of breath and decreased O2 sat duration despite Airvo, he was transferred to ICU and was intubated. Currently patient is on assist control tidal volume of 420 rate of 30 FiO2 85 % and PEEP of 16 arterial blood gas reveals a pH of 7.41 pCO2 53 PO2 89 sodium is 136 D-Dimer 2.0 pulmonary are following closely.\\ On 03/05/2021 patient was seen and examined in the ICU he is intubated sedated maintained on mechanical ventilation, patient is maintained on assist control tidal volume 42 rate of 30 FiO2 75% and PEEP at 16 arterial blood gas reveals a pH of 7.43 pCO2 48 and PO2 84 white blood count is 11.6 hemoglobin 11.3 platelet count 305 d-dimer 1.85 On 03/06/2021 patient was seen and examined in the ICU he is intubated sedated maintained on mechanical ventilation, patient is maintained on assist control tidal volume 420 rate of 30 FiO2 55% and PEEP at 12 arterial blood gas reveals a pH of 7.43 pCO2 49 and PO2 88 white blood count is 11.6 hemoglobin 11.9 platelet count 305 d-dimer 1.7 patient had a sedation holiday today he did well he was alert and following commands On 03/07/2021 patient was seen and examined in the ICU he is intubated sedated maintained on mechanical ventilation patient is maintained on assist control tidal volume 420 rate 32 FiO2 50% with a PEEP of 12 arterial blood gas reveals a pH of 7.44 pCO2 45 and PaO2 of 71 patient is having sedation holidays and is responding well at that time. On 03/08/2021, patient was seen and examined in the ICU he is intubated sedated maintained on mechanical ventilation, arterial blood gas Reveals a pH of 7.45 pCO2 44 PaO2 78 d-dimer 1.84, patient is maintained on assist control rate 32 tidal folium 420 FiO2 50% and a PEEP of 12 On 03/09/2021 patient was seen and examined in the ICU he is intubated sedated maintained on mechanical ventilation, he is scheduled for tracheostomy and PEG tube placement tomorrow, arterial blood gas reveals a pH of 7.4 to pCO2 48 PaO2 73 white blood count is 9.9 hemoglobin 11.6 platelet count 212 d-dimer is elevated at 3.4 On 03/10/2021, patient was seen and examined in the ICU he is intubated sedated maintained on mechanical ventilation, arterial blood gas Reveals a pH of 7.45 pCO2 44 PaO2 78 d-dimer 1.84, patient is maintained on assist control rate 32 tidal folium 420 FiO2 50% and a PEEP of 12 Patient is scheduled for tracheostomy and PEG tube placement today. Objective - Vital Signs Vital signs: Vital Signs Temp 98.8 F 03/10/21 08:00 Pulse 54 L 03/10/21 11:00 Resp 32 H 03/10/21 11:00 BP 113/75 03/10/21 11:00 Pulse Ox 97 03/10/21 11:00 Intake & Output 03/09/21 03/10/21 03/10/21 18:59 06:59 18:59 Intake Total 0474.290 0600.729 379.030 Output Total 2430 1745 625 Balance -583.657 -285.271 -245.970 Weight 131.3 kg Intake: IV 391 256 120 A line Flush 36 36 15 Ampicillin-Sulbactam 1.5 50 110 50 gm In Sodium Chloride 0.9 % 50 ml @ 100 mls/hr IVPB Q6HR TERI Rx#:[id number] Sodium Chloride 0.9% 1, 305 110 55 000 ml @ 10 mls/hr IV . Q24H TERI Rx#:[id number] Intake, IV Titration 837.343 879.729 259.030 Amount Cisatracurium 200 mg In 57.075 Sodium Chloride 0.9% 180 ml @ 1 MCG/KG/MIN 7.756 mls/hr IV .Q24H TERI Rx#: [id number] fentaNYL (PF). 1,000 mcg 443.224 417.944 188.128 In Sodium Chloride 0.9% 80 ml @ Per Protocol IV . Q0M TERI Rx#:[id number] propofoL 1,000 mg In 337.044 461.785 70.902 Empty Bag 1 bag @ Titrate IV .Q0M TERI Rx#: [id number] Tube Feeding 528 264 Other 90 60 Output: Urine 2430 1745 625 Other: Voiding Method Indwelling Catheter Indwelling Catheter Indwelling Catheter # Bowel Movements 1 ABP, PAP, CO, CI - Last Documented Arterial Blood Pressure 111/63 - Exam In general patient is intubated sedated maintained on mechanical ventilation HEENT head normocephalic and atraumatic Neck is supple no JVD no goiter no lymphadenopathy Chest exam reveals a few scattered crackles no wheezing Cardiac exam reveals regular heart sounds no gallops no murmurs Abdomen is soft nontender no organomegaly with normal bowel sounds Extremity exam reveals no edema no cyanosis or clubbing Neurological examination reveals no gross focal deficit - Labs CBC & Chem 7: 03/11/21 04:05 03/11/21 04:05 Labs: Abnormal Lab Results - Last 24 Hours (Table) 03/09/21 03/10/21 03/10/21 Range/Units 18:04 00:27 05:07 RBC (4.30-5.90) m/uL Hgb (13.0-17.5) gm/dL Hct (39.0-53.0) % Neutrophils # (1.3-7.7) k/uL APTT (22.0-30.0) sec Fibrinogen (200-500) mg/dL D-Dimer (<0.60) mg/L FEU ABG pH 7.46 H (7.35-7.45) ABG pO2 66 L (83-108) mmHg ABG HCO3 31 H (21-25) mmol/L ABG Total CO2 32 H (19-24) mmol/L ABG O2 Saturation 93.2 L (94-97) % Creatinine (0.66-1.25) mg/dL Glucose (74-99) mg/dL POC Glucose (mg/dL) 111 H 113 H (75-99) mg/dL AST (17-59) U/L ALT (4-49) U/L Total Protein (6.3-8.2) g/dL Albumin (3.5-5.0) g/dL 03/10/21 03/10/21 03/10/21 Range/Units 05:10 05:10 05:10 RBC 3.81 L (4.30-5.90) m/uL Hgb 11.5 L (13.0-17.5) gm/dL Hct 33.7 L (39.0-53.0) % Neutrophils # 8.5 H (1.3-7.7) k/uL APTT 19.2 L (22.0-30.0) sec Fibrinogen 156 L (200-500) mg/dL D-Dimer 4.93 H (<0.60) mg/L FEU ABG pH (7.35-7.45) ABG pO2 (83-108) mmHg ABG HCO3 (21-25) mmol/L ABG Total CO2 (19-24) mmol/L ABG O2 Saturation (94-97) % Creatinine 0.57 L (0.66-1.25) mg/dL Glucose 107 H (74-99) mg/dL POC Glucose (mg/dL) (75-99) mg/dL AST 77 H (17-59) U/L ALT 263 H (4-49) U/L Total Protein 5.0 L (6.3-8.2) g/dL Albumin 2.8 L (3.5-5.0) g/dL 03/10/21 03/10/21 Range/Units 06:05 12:12 RBC (4.30-5.90) m/uL Hgb (13.0-17.5) gm/dL Hct (39.0-53.0) % Neutrophils # (1.3-7.7) k/uL APTT (22.0-30.0) sec Fibrinogen (200-500) mg/dL D-Dimer (<0.60) mg/L FEU ABG pH (7.35-7.45) ABG pO2 (83-108) mmHg ABG HCO3 (21-25) mmol/L ABG Total CO2 (19-24) mmol/L ABG O2 Saturation (94-97) % Creatinine (0.66-1.25) mg/dL Glucose (74-99) mg/dL POC Glucose (mg/dL) 108 H 109 H (75-99) mg/dL AST (17-59) U/L ALT (4-49) U/L Total Protein (6.3-8.2) g/dL Albumin (3.5-5.0) g/dL Assessment and Plan Plan: 1. Acute COVID-19 pneumonia patient started on IV Decadron and subcu Lovenox pulmonary consultation was requested, patient developed acute hypoxic respiratory failure requiring intubation and mechanical ventilation 2. Underlying history of asthma 3. Underlying history of morbid obesity 4. Hyponatremia, patient started on IV normal months leading 5. Elevated liver enzymes, will monitor closely 6. Evidence of ileus patient is maintained on NG tube to suction, surgical consultation following At this time patient was seen and examined in the emergency room he was started on subcu Lovenox and IV dexamethasone, vitamin C and vitamin D and zinc supplements he was also started on inhaled bronchodilators patient will be admitted to medical floor pulmonary consultation was requested. Patient was seen by pulmonary he is maintained on oxygen supplements, IV Decadron, subcu Lovenox, patient has improved since yesterday
--- NOTE | 2021-03-11 11:26 | P.PN ---
Subjective Progress Note Date: 03/11/21 Progress note dated 02/27/2021. 35-year-old male admitted with a diagnosis of acute hypoxemic respiratory failure secondary to COVID 19 pneumonia. Chest x-ray showed multifocal bilateral infiltrates. In addition, the patient is morbidly obese, likely has sleep apnea syndrome, has lymphopenia, hyponatremia, and elevated liver function tests, all secondary to COVID 19. Currently, the patient's on saline at 75 mL an hour, and high flow nasal O2 at 15 L/m. White count 6.2, hemoglobin 13.8, hematocrit 39.0, and platelet count 262,000. D-dimer is 1.51. Sodium 127, potassium 4, chlorides 94, CO2 25, anion gap 8, BUN 13, creatinine 0.81. LDH is 1969, and C-reactive protein is 8.9. Chest x-ray shows bilateral infiltrates. Progress note dated 02/28/2021. 35-year-old male with a diagnosis of acute hypoxemic respiratory failure secondary to COVID 19 pneumonia. Chest x-ray showed multifocal bilateral infiltrates. The patient also has obesity, sleep apnea syndrome, lymphopenia, hyponatremic, and liver function abnormalities, all consistent with coronavirus infection. Yesterday, the patient was on high flow nasal O2, and nonrebreather mask. This morning, the respiratory therapist switch him over to AIRVO, at 60 L/m and 90% FiO2. The patient is not receiving any IV fluids. D-dimer is 4.62. Progress note dated 03/06/2021. 35-year-old male that I saw last on February 28. The patient was admitted on the , and was intubated on the . I saw him last on February 28. He was admitted with a diagnosis of COVID 19 pneumonia. Currently, the patient's on the volume assist control mode, rate 32, tidal volume 420, FiO2 55% to be dropped down to 80%, and PEEP 16. Blood gases show a PaO2 of 88, PaCO2 49, pH is 7.42. The patient's currently on Nimbex at 2 mcg/kg/m, propofol at 40 mc g/kg/m, fentanyl at 1 mcg/kg/h, saline at 75 mL an hour, and vital high protein at 30 mL an hour, with a goal of 52. The patient will get a daily interruption of sedation today. He may benefit from a spontaneous breathing trial, we'll have to see. Currently, his PEEP values still quite high. White count 11.9, hemoglobin 11.4, hematocrit 36, and platelet count 265,000. D-dimer is 1.7. Sodium 133, potassium 4.8, chlorides 100, CO2 31, anion gap 2, BUN 21, and creatinine 0.63. LDH is 938, and C-reactive protein is 0.8. Chest x-ray shows diffuse bilateral infiltrates, which may be a bit improved. Progress note dated 03/07/2021. 35-year-old male, who is again seen in room 255. The patient remains on the mechanical ventilator. The patient was initially admitted on February 24, and was intubated on March 01. Ventilator settings include the volume assist control mode, rate 32, tidal volume 420, FiO2 50%, PEEP of 12. Arterial blood gases show a PaO2 of 71, pCO2 45, and pH is 7.44. The patient's currently on Nimbex at 1 mcg/kg/m, propofol at 40 mcg/kg/m, and fentanyl at 1 mcg/kg/h. Patient's getting saline at 75 mL an hour, and vital high protein at 52 mL an hour, which is goal. White count 9.8, hemoglobin 11.4, hematocrit 33.1, and platelet count is 234,000. D-dimer 1.73. Sodium 131, potassium 4.6, chlorides 101, CO2 30, anion gap is 0. BUN 20, creatinine 0.56. LDH is 895. Chest x-ray shows stable diffuse bilateral infiltrates. Progress note dated 03/08/2021. 35-year-old male, seen again in room 255. The patient remains on the mechanical ventilator. The patient is on the volume assist control mode, rate 32, tidal volume 420, FiO2 50%, PEEP of 12. Blood gases show pO2 78, pCO2 44, pH 7.45. The patient is currently on fentanyl 1.4 mcg/kg/h, propofol, at 50 mcg/kg/m, Nimbex at 1.5 mcg/kg/m, saline at 75 mL an hour, Cleveprex, currently on hold, and vital high protein at 44 mL an hour, which is goal. The PEEP will be dropped from 12 to 10. In addition, we've asked surgery to consider doing a tracheostomy tube and PEG tube placement. Current labs include a white count 9, hemoglobin 11.5, hematocrit 33.1, and platelet count 227,000. D-dimer is 1.84. Sodium 136, potassium 4.5, chlorides 104, CO2 31, anion gap 1, BUN 16, creatinine 0.5 to, C-reactive protein less than 0.5, and LDH 902. No chest x- ray today. The chest x-ray yesterday showed diffuse bilateral stable infiltrates. Progress note dated 03/09/2021. 35-year-old male, again seen, and room 255. In the hospital now for 13 days, admitted on 02/24/2021. The patient remains on the mechanical ventilator. The patient is scheduled for tracheostomy and PEG tube placement on Saturday. The patient is on a volume assist control mode, rate 32, tidal volume 420, FiO2 50%, and PEEP of 10. Blood gases show a PaO2 of 73, pCO2 48, and a pH is 7.42. The patient's currently on Nimbex at 2 mcg/kg/m, propofol at 50 mcg/kg/m, fentanyl at 3 mcg/kg/h, saline at 10 mL an hour, and vital high 13 at goal, which is 44 mL an hour. We will attempt to discontinue the Nimbex today. Previous attempts of daily interruption of sedation have not been beneficial. White count 9.9, hemoglobin 11.6, hematocrit 36.2, platelet count 312,000. D-dimer 3.4, sodium 139, potassium 4.3, chlorides 106, CO2 31, anion gap 2, BUN and creatinine were 17, and 0.49 respectively. Chest x-ray show some improvement in aeration in the left lower lobe. Progress note dated 03/10/2021. 35-year-old white male, who is going to have a tracheostomy and PEG tube placed today. The surgery was done by Dr. Vargas. The patient is again seen today in room 255. He's been in the hospital now for 14 days. The patient remains on mechanical ventilator. He is on the volume assist control mode, rate 32, tidal volume 420, FiO2 50%, PEEP of 10. Blood gases show pO2 66, pCO2 43, pH 7.46. The patient's on propofol at 35 mcg/kg/m, and fentanyl at 3 mcg/kg per hour. Nimbex has been discontinued. He is getting saline at 25 mL an hour. Tube feedings are currently on hold. White count 10.2, hemoglobin 11.5, hematocrit 33.7, platelet count 196,000. D-dimer 4.93. Fibrinogen 156. Sodium 137, potassium 4.3, chlorides 105, CO2 30, anion gap 2, BUN 16, creatinine 0.57. Chest x-ray continues to show bilateral infiltrates. The patient is seen today for the first 2020 in follow-up in the intensive care unit. He did undergo trach D ostomy tube and PEG tube placement on 03/10/2021. He remains on mechanical ventilator at assist control with a rate of 32. Tidal volume 420. FiO2 50% and a PEEP of 10. Morning blood gases reveal pO2 of 81, pCO2 41, pH 7.46. He is currently sedated on propofol at 45 mcg/kg/m. Fentanyl at 3 mcg/kg per hour. 0.9 normal saline at 10 O's per hour. Tube feedings remain on hold until later today. He was receiving vital HPI 44 ML's per hour which is goal. Chest x-ray continues to show bilateral patchy opacities more so on the lower lung sylvester lesser extent in the right upper lobe. Blood cultures reveal no growth. Initial sputum culture revealed sinus a with Moraxella catarra. White count 12.7. Hemoglobin 11.3. Sodium 136. Potassium 4.2. Creatinine 0.64. AST 78. ALT 265. LDH 775. C-reactive protein 0.6. He is currently on Unasyn. Remains on dexamethasone, Lovenox. Objective - Vital Signs Vital signs: Vital Signs Temp 98 F 03/11/21 08:00 Pulse 62 03/11/21 11:00 Resp 31 H 03/11/21 11:00 BP 128/71 03/11/21 11:00 Pulse Ox 95 03/11/21 11:00 Intake & Output 03/10/21 03/11/21 03/11/21 18:59 06:59 18:59 Intake Total 2489.066 5665.826 354.155 Output Total 1529 1260 420 Balance -290.682 -151.174 -65.845 Weight 131.3 kg 131.7 kg Intake: IV 611 243 65 A line Flush 36 33 15 Ampicillin-Sulbactam 1.5 100 100 gm In Sodium Chloride 0.9 % 50 ml @ 100 mls/hr IVPB Q6HR TERI Rx#:[id number] Sodium Chloride 0.9% 1, 125 110 50 000 ml @ 10 mls/hr IV . Q24H TERI Rx#:[id number] Intake, IV Titration 627.318 865.826 289.155 Amount fentaNYL (PF). 1,000 mcg 481.232 392.688 191.368 In Sodium Chloride 0.9% 80 ml @ Per Protocol IV . Q0M TERI Rx#:[id number] propofoL 1,000 mg In 146.086 473.138 97.787 Empty Bag 1 bag @ Titrate IV .Q0M TERI Rx#: [id number] Output: Urine 1525 1260 420 Estimated Blood Loss 4 Other: Voiding Method Indwelling Catheter Indwelling Catheter Indwelling Catheter ABP, PAP, CO, CI - Last Documented Arterial Blood Pressure 129/63 - Exam GENERAL EXAM: Sedated, 35-year-old gentleman, on mechanical ventilator, comfortable in no apparent distress. HEAD: Normocephalic. EYES: Normal reaction of pupils, equal size. NOSE: Clear with pink turbinates. THROAT: No erythema or exudates. NECK: Tracheostomy tube secured in place. No masses, no JVD. CHEST: No chest wall deformity. LUNGS: Equal air entry with bilateral coarse crackles. CVS: S1 and S2 normal with no audible murmur, regular rhythm. ABDOMEN: PEG tube exit site clean and dry. No hepatosplenomegaly, normal bowel sounds, no guarding or rigidity. SPINE: No scoliosis or deformity SKIN: No rashes CENTRAL NERVOUS SYSTEM: Sedated, tone is normal in all 4 extremities. EXTREMITIES: There is no peripheral edema. No clubbing, no cyanosis. Peripheral pulses are intact. - Labs CBC & Chem 7: 03/11/21 04:05 03/11/21 04:05 Labs: Abnormal Lab Results - Last 24 Hours (Table) 03/10/21 03/10/21 03/10/21 Range/Units 05:10 12:12 23:22 WBC (3.8-10.6) k/uL RBC (4.30-5.90) m/uL Hgb (13.0-17.5) gm/dL Hct (39.0-53.0) % ABG pH (7.35-7.45) ABG pO2 (83-108) mmHg ABG HCO3 (21-25) mmol/L ABG Total CO2 (19-24) mmol/L Sodium (137-145) mmol/L Creatinine (0.66-1.25) mg/dL Glucose (74-99) mg/dL POC Glucose (mg/dL) 109 H 100 H (75-99) mg/dL Calcium (8.4-10.2) mg/dL Ferritin 1230.7 H (22.0-322.0) ng/mL AST (17-59) U/L ALT (4-49) U/L Lactate Dehydrogenase (313-618) U/L Total Protein (6.3-8.2) g/dL Albumin (3.5-5.0) g/dL 03/11/21 03/11/21 03/11/21 Range/Units 04:05 04:05 05:25 WBC 12.7 H (3.8-10.6) k/uL RBC 3.83 L (4.30-5.90) m/uL Hgb 11.3 L (13.0-17.5) gm/dL Hct 34.3 L (39.0-53.0) % ABG pH 7.46 H (7.35-7.45) ABG pO2 81 L (83-108) mmHg ABG HCO3 30 H (21-25) mmol/L ABG Total CO2 31 H (19-24) mmol/L Sodium 136 L (137-145) mmol/L Creatinine 0.64 L (0.66-1.25) mg/dL Glucose 103 H (74-99) mg/dL POC Glucose (mg/dL) (75-99) mg/dL Calcium 8.3 L (8.4-10.2) mg/dL Ferritin (22.0-322.0) ng/mL AST 78 H (17-59) U/L ALT 265 H (4-49) U/L Lactate Dehydrogenase 775 H (313-618) U/L Total Protein 5.0 L (6.3-8.2) g/dL Albumin 2.8 L (3.5-5.0) g/dL Assessment and Plan Assessment: 1 Acute hypoxemic respiratory failure, secondary to COVID 19 pneumonia/pneumonitis, requiring intubation and mechanical ventilation on 03/01/2021. 2 Failure to progress on mechanical ventilation, tracheostomy tube placement and PEG tube placed on 03/10/2021. 3 Acute ileus, requiring decompression with nasogastric tube. 4 Methicillin sensitive staph aureus and Moraxella catarrhalis tracheobronchitis/bronchopneumonia, currently on Unasyn. 5 Morbid obesity. 6 Possible sleep apnea syndrome. 7 Lymphopenia. 8 Elevated liver function tests, secondary to coronavirus infection. 9 Hyponatremia, resolved. Plan: The patient was seen and evaluated by Dr. Joyner Chest x-ray, ABGs and labs reviewed Continue with daily interruption of sedation Continue with a spontaneous breathing trial Discontinue Unasyn Continue current treatment plan We will continue to follow make further recommendations based on his clinical status Critical care time 38 minutes I, the cosigning physician, performed a history & physical examination of the md tient. Lungs sounds echoes in the bilateral posterior bases. Maintaining good O2 saturations in the 90s on 50% FiO2 and a PEEP of 10 via mechanical ventilator. I discussed the assessment and plan of care with my nurse practitioner, Melanie Hall. I attest to the above note as dictated by her.
[2021-03-11 11:47] LABS: Glucose,Whole Blood 101 mg/dL (75-99)
[2021-03-11 12:03] LABS: Ferritin 1355.4 ng/mL (22.0-322.0)
[2021-03-11] MEDS: CLEVIDIPINE BUTYRATE 25 MG in EMPTY BAG 1 BAG IV SCH (15:54)
--- NOTE | 2021-03-11 16:40 | P.PN ---
Subjective Progress Note Date: 03/11/21 CHIEF COMPLAINT: COVID pneumonia HISTORY OF PRESENT ILLNESS: The patient is a 35 year old male with Covid pneumonia status post trach and PEG. No new issues. The patient remains in the ICU ventilated. He is pending tube feeds. REVIEW OF ORGAN SYSTEMS: On mechanical ventillation. No new chest pain. Patient's BMI of 40 with morbid obesity PHYSICAL EXAM: VITALS: Reviewed CONSTITUTIONAL: Well developed and in no acute distress. EYES: Conjuctivae without sclera icterus. HEAD, EARS, NOSE, THROAT: Head is atraumatic, normocephalic. Trachea intact. RESPIRATORY: Non-labored respirations and equal bilateral excursions. No gross wheezes. Mechanical ventilation CARDIOVASCULAR: Palpable 2+ radial pulses. ABDOMEN: No peritonitis. G-tube intact. NEUROLOGIC: No focal or lateralizing signs PSYCH: Sedated SKIN: Well perfused with good skin turgor. CLINCAL LABS: Reviewed. WBC elevated over 14,000. STUDIES: Chest x-ray independently reviewed demonstrating no pneumothorax. No pulmonary vascular congestion. This is my independent interpretation. ASSESSMENT: 1. COVID pneumonia 2. Status post trach and PEG 3. Morbid obesity due to excess calories, BMI 43.4 PLAN: 1. May start tube feeds tomorrow. 2. Continue supportive care Objective - Vital Signs Vital signs: Vital Signs Temp 98.6 F 03/11/21 16:00 Pulse 50 L 03/11/21 16:00 Resp 32 H 03/11/21 16:00 BP 113/67 03/11/21 16:00 Pulse Ox 97 03/11/21 16:00 Intake & Output 03/10/21 03/11/21 03/11/21 18:59 06:59 18:59 Intake Total 8817.946 7247.826 632.155 Output Total 1529 1260 930 Balance -290.682 -151.174 -297.845 Weight 131.3 kg 131.7 kg 131.7 kg Intake: IV 611 243 180 A line Flush 36 33 30 Ampicillin-Sulbactam 1.5 100 100 50 gm In Sodium Chloride 0.9 % 50 ml @ 100 mls/hr IVPB Q6HR TERI Rx#:[id number] Sodium Chloride 0.9% 1, 125 110 100 000 ml @ 10 mls/hr IV . Q24H TERI Rx#:[id number] Intake, IV Titration 627.318 865.826 389.155 Amount fentaNYL (PF). 1,000 mcg 481.232 392.688 291.368 In Sodium Chloride 0.9% 80 ml @ Per Protocol IV . Q0M TERI Rx#:[id number] propofoL 1,000 mg In 146.086 473.138 97.787 Empty Bag 1 bag @ Titrate IV .Q0M TERI Rx#: [id number] Tube Feeding 33 Other 30 Output: Urine 1525 1260 930 Estimated Blood Loss 4 Other: Voiding Method Indwelling Catheter Indwelling Catheter Indwelling Catheter ABP, PAP, CO, CI - Last Documented Arterial Blood Pressure 104/52 - Labs CBC & Chem 7: 03/12/21 04:15 03/12/21 04:15 Labs: Abnormal Lab Results - Last 24 Hours (Table) 03/10/21 03/11/21 03/11/21 Range/Units 23:22 04:05 04:05 WBC 12.7 H (3.8-10.6) k/uL RBC 3.83 L (4.30-5.90) m/uL Hgb 11.3 L (13.0-17.5) gm/dL Hct 34.3 L (39.0-53.0) % ABG pH (7.35-7.45) ABG pO2 (83-108) mmHg ABG HCO3 (21-25) mmol/L ABG Total CO2 (19-24) mmol/L Sodium 136 L (137-145) mmol/L Creatinine 0.64 L (0.66-1.25) mg/dL Glucose 103 H (74-99) mg/dL POC Glucose (mg/dL) 100 H (75-99) mg/dL Calcium 8.3 L (8.4-10.2) mg/dL Ferritin 1355.4 H (22.0-322.0) ng/mL AST 78 H (17-59) U/L ALT 265 H (4-49) U/L Lactate Dehydrogenase 775 H (313-618) U/L Total Protein 5.0 L (6.3-8.2) g/dL Albumin 2.8 L (3.5-5.0) g/dL 05/01/21 05/01/21 Range/Units 05:25 11:46 WBC (3.8-10.6) k/uL RBC (4.30-5.90) m/uL Hgb (13.0-17.5) gm/dL Hct (39.0-53.0) % ABG pH 7.46 H (7.35-7.45) ABG pO2 81 L (83-108) mmHg ABG HCO3 30 H (21-25) mmol/L ABG Total CO2 31 H (19-24) mmol/L Sodium (137-145) mmol/L Creatinine (0.66-1.25) mg/dL Glucose (74-99) mg/dL POC Glucose (mg/dL) 101 H (75-99) mg/dL Calcium (8.4-10.2) mg/dL Ferritin (22.0-322.0) ng/mL AST (17-59) U/L ALT (4-49) U/L Lactate Dehydrogenase (313-618) U/L Total Protein (6.3-8.2) g/dL Albumin (3.5-5.0) g/dL
[2021-03-11 17:56] LABS: Glucose,Whole Blood 91 mg/dL (75-99)
[2021-03-11 19:42] LABS: LD Isoenzymes 1 15 % (19-38); LD Isoenzymes 2 34 % (30-43); LD Isoenzymes 3 21 % (16-26); LD Isoenzymes 4 13 % (3-12); LD Isoenzymes 5 17 % (3-14); Lactacte Dehydrogenase(LD) ISO 307 U/L (100-220)
[2021-03-11] MEDS: SODIUM CHLORIDE 0.9% 1,000 ML IV SCH (22:35)
[2021-03-11 23:48] LABS: Glucose,Whole Blood 107 mg/dL (75-99)
[2021-03-12] MEDS: fentaNYL (PF). 1,000 MCG in SODIUM CHLORIDE 0.9% 80 ML IV SCH ×5 (01:03→15:39)
[2021-03-12 04:29] LABS: HCT 34.4 % (39.0-53.0); HGB 11.7 gm/dL (13.0-17.5); MCH 30.3 pg (25.0-35.0); MCV 88.9 fL (80.0-100.0); Mean Platelet Volume 9.7; Platelet Count 169 k/uL (150-450); RBC 3.87 m/uL (4.30-5.90); RDW 14.9 % (11.5-15.5); WBC 14.7 k/uL (3.8-10.6)
[2021-03-12 04:38] LABS: Potassium 4.2 mmol/L (3.5-5.1)
[2021-03-12 04:55] LABS: African American GFR (CKD) >90 (>60 ml/min/1.73 sqM); Anion Gap 4 mmol/L; Blood Urea Nitrogen 17 mg/dL (9-20); C Reactive Protein 0.5 mg/dL (<1.0); Calcium 8.5 mg/dL (8.4-10.2); Carbon Dioxide 28 mmol/L (22-30); Chloride 103 mmol/L (98-107); Glucose 103 mg/dL (74-99); LDH 775 U/L (313-618); Non-African American GFR(CKD) >90 (>60 ml/min/1.73 sqM); Sodium 135 mmol/L (137-145)
[2021-03-12 05:55] LABS: Glucose,Whole Blood 100 mg/dL (75-99)
[2021-03-12 06:04] LABS: ABG Base Excess 5.4 mmol/L; ABG HCO3 29 mmol/L (21-25); ABG Oxygen Saturation 96.8 % (94-97); ABG PCO2 39 mmHg (35-45); ABG PH 7.48 (7.35-7.45); ABG PO2 84 mmHg (83-108); ABG TCO2 30 mmol/L (19-24); Allen Test Performed? Yes
[2021-03-12] MEDS: METOCLOPRAMIDE 5 MG/ML 2 ML VIAL IVP SCH ×4 (06:21→23:52)
--- NOTE | 2021-03-12 07:09 | XR ---
EXAMINATION TYPE: XR chest 1V portable DATE OF EXAM: 03/12/2021 COMPARISON: 03/11/2020 HISTORY: Shortness of breath TECHNIQUE: Single frontal view of the chest is obtained. FINDINGS: Tracheostomy tube noted. Diffuse bilateral infiltrates with pleural effusion. Heart size i s prominent. PICC line noted. No pneumothorax. Prominence of the hilum noted bilaterally correlate wi th CT scan IMPRESSION: Bilateral diffuse infiltrates
[2021-03-12] MEDS: ALBUTEROL HFA INHALER INHALATION SCH ×4 (08:15→20:36)
[2021-03-12] MEDS: bisacodyL 10 MG SUPP RECTAL SCH (08:38)
[2021-03-12] MEDS: DEXAMETHASONE SOD PHOSPHATE 10 MG/ML 1 ML VIAL IV SCH ×2 (08:38→20:20)
[2021-03-12] MEDS: ENOXAPARIN 40 MG/0.4 ML SYRINGE SQ SCH (08:38)
[2021-03-12] MEDS: PANTOPRAZOLE 40 MG/10 ML VIAL IV SCH (08:38)
[2021-03-12] MEDS: CHLORHEXIDINE GLUCONATE 15 ML CUP MUCOUS MEM SCH ×2 (08:38→20:20)
--- NOTE | 2021-03-12 10:19 | P.PN ---
Subjective Progress Note Date: 03/11/21 Osmar Drummond, is a 35-year-old male patient of Dr. Hdz, who presented to [facility] emergency room with a chief complaint of worsening shortness of breath and chest tightness. Patient was also having persistent cough his symptoms started 12 days ago however he had severe worsening of his symptoms in the last 3 days. He stated that last Saturday he was tested for COVID-19, results came back positive on Saturday. He was evaluated in the emergency room vital examination on presentation revealed a temperature of 103 pulse 92 respiration 18 blood pressure 124/77 pulse ox 92% on room air. White blood count was 4.2 hemoglobin 15.4 platelet count 161 sodium 125 potassium 3.9 chloride 88 calcium 7.8 BUN 8 creatinine 0.94 AST 98 ALT 57 LDH 1623 C-reactive protein 41.1 EKG done in the emergency room revealed normal sinus rhythm normal EKG, chest x-ray done in the emergency room revealed patchy bilateral infiltrates compatible with multifocal pneumonia no pneumothorax. Patient was admitted to medical floor pulmonary consultation was requested. On 02/25/2021 patient was seen and examined on the medical floor he is alert and oriented 3 in no distress, he is still complaining of cough and shortness of breath otherwise he denies any complaints there is no fever or chills no hea dache or dizziness no chest pain no nausea or vomiting no abdominal pain no diarrhea no blood in the stools no burning was urination no frequency or urgency and no hematuria. On 02/26/2021 patient was seen and examined on the medical floor he is alert and oriented 3 in no distress he seems to be worse today he is having more tachycardia and tachypnea, his temperature is 99.8 pulse ox is down to 82% on 15 L high flow cannula inflammatory markers are up his LDH is 1735 up from 1440 yesterday C-reactive protein is up to 7.2 up from 6 yesterday d-dimer is up to 1.21 up from 0.77 yesterday, at this time patient is maintained on inhaled bronchodilators, IV Decadron, subcu Lovenox,, repeat chest x-ray done today reveals by basilar infiltrates and opacities consistent with COVID-19 infection without any significant change from previous x-ray on 02/27/2021 patient was seen and examined on the medical floor, he is alert and oriented 3 in no apparent distress he is reporting some improvement in his shortness of breath, vital exam reveals a temperature of 99.1 pulse 102 respiration 20 blood pressure 121/84 pulse ox 87% on 15 L high flow cannula, white blood count is 6.2 hemoglobin 13.8 platelet count 262 d-dimer 1.51 sodium 127 potassium 4.0 chloride 94 CO2 25 BUN 13 creatinine 0.81 LDH 1969 C-reactive protein up to 8.9, patient is complaining of cough and shortness of breath otherwise he denies any complaints there is no fever or chills no headache or dizziness no chest pain no nausea or vomiting no abdominal pain no diarrhea no blood in the stools no burning with urination no frequency or urgency and no hematuria On 02/28/2021 patient was seen and examined on the medical floor he is alert and oriented 3 in no apparent distress, he is still maintained on Airvo with FiO2 of 90% his temperature is 98.7 pulse 116 respiration 28 blood pressure 145/81 pulse ox 93% he is complaining of shortness of breath and occasional cough otherwise he denies any complaints there is no fever or chills no headache or dizziness no chest pain no nausea or vomiting no abdominal pain no diarrhea no blood in the stools no burning with urination no frequency or urgency and no hematuria. On 03/01/2021 patient was seen and examined in the ICU he is intubated sedated maintained on mechanical ventilation air this morning patient was having worsening shortness of breath and decreased O2 sat duration despite Airvo, he was transferred to ICU and was intubated. Currently patient is on assist c ontrol tidal volume of 400 rate of 30 FiO2 100% and PEEP of 10 arterial blood gas reveals a pH of 7.24 pCO2 55 PO2 78 sodium is 127 LDH 2034 C-reactive protein 4.5 pulmonary are following closely On 03/02/2021 patient was seen and examined in the ICU he is intubated sedated maintained on mechanical ventilation air this morning patient was having worsening shortness of breath and decreased O2 sat duration despite Airvo, he was transferred to ICU and was intubated. Currently patient is on assist control tidal volume of 400 rate of 30 FiO2 100% and PEEP of 10 arterial blood gas reveals a pH of 7.24 pCO2 55 PO2 78 sodium is 127 LDH 203 C-reactive protein 4.5 pulmonary are following closely. Patient has evidence of ileus, he is maintained on NG tube to suction, surgical consultation was requested. On 03/03/2021 patient was seen and examined in the ICU he is intubated sedated maintained on mechanical ventilation air this morning patient was having worsening shortness of breath and decreased O2 sat duration despite Airvo, he was transferred to ICU and was intubated. Currently patient is on assist control tidal volume of 420 rate of 30 FiO2 85 % and PEEP of 16 arterial blood gas reveals a pH of 7.39 pCO2 55 PO2 66 sodium is 134 LDH 2034 C-reactive protein 4.5 pulmonary are following closely. Patient has evidence of ileus, he is maintained on NG tube to suction, surgical consultation was requested. On 03/04/2021 patient was seen and examined in the ICU he is intubated sedated maintained on mechanical ventilation air this morning patient was having worsening shortness of breath and decreased O2 sat duration despite Airvo, he was transferred to ICU and was intubated. Currently patient is on assist control tidal volume of 420 rate of 30 FiO2 85 % and PEEP of 16 arterial blood gas reveals a pH of 7.41 pCO2 53 PO2 89 sodium is 136 D-Dimer 2.0 pulmonary are following closely.\\ On 03/05/2021 patient was seen and examined in the ICU he is intubated sedated maintained on mechanical ventilation, patient is maintained on assist control tidal volume 42 rate of 30 FiO2 75% and PEEP at 16 arterial blood gas reveals a pH of 7.43 pCO2 48 and PO2 84 white blood count is 11.6 hemoglobin 11.3 platelet count 305 d-dimer 1.85 On 03/06/2021 patient was seen and examined in the ICU he is intubated sedated maintained on mechanical ventilation, patient is maintained on assist control tidal volume 420 rate of 30 FiO2 55% and PEEP at 12 arterial blood gas reveals a pH of 7.43 pCO2 49 and PO2 88 white blood count is 11.6 hemoglobin 11.9 platelet count 305 d-dimer 1.7 patient had a sedation holiday today he did well he was alert and following commands On 03/07/2021 patient was seen and examined in the ICU he is intubated sedated maintained on mechanical ventilation patient is maintained on assist control tidal volume 420 rate 32 FiO2 50% with a PEEP of 12 arterial blood gas reveals a pH of 7.44 pCO2 45 and PaO2 of 71 patient is having sedation holidays and is responding well at that time. On 03/08/2021, patient was seen and examined in the ICU he is intubated sedated maintained on mechanical ventilation, arterial blood gas Reveals a pH of 7.45 pCO2 44 PaO2 78 d-dimer 1.84, patient is maintained on assist control rate 32 tidal folium 420 FiO2 50% and a PEEP of 12 On 03/09/2021 patient was seen and examined in the ICU he is intubated sedated maintained on mechanical ventilation, he is scheduled for tracheostomy and PEG tube placement tomorrow, arterial blood gas reveals a pH of 7.4 to pCO2 48 PaO2 73 white blood count is 9.9 hemoglobin 11.6 platelet count 212 d-dimer is elevated at 3.4 On 03/10/2021, patient was seen and examined in the ICU he is intubated sedated maintained on mechanical ventilation, arterial blood gas Reveals a pH of 7.45 pCO2 44 PaO2 78 d-dimer 1.84, patient is maintained on assist control rate 32 tidal folium 420 FiO2 50% and a PEEP of 12 Patient is scheduled for tracheostomy and PEG tube placement today. On 03/11/2021 patient was seen and examined in the ICU he is intubated, sedated and maintained on mechanical ventilation, he underwent racheostomy and PEG tube placement yesterday, his vent setting patient is maintained on assist control rate of 32 tidal volume 420 FiO2 50% and PEEP of 10 ABG reveals pH 7.46 pCO2 41 PaO2 81 liver enzymes are slightly elevated was AST at 78 ALT at 265 Objective - Vital Signs Vital signs: Vital Signs Temp 98 F 03/11/21 08:00 Pulse 62 03/11/21 08:00 Resp 26 H 03/11/21 08:00 BP 101/59 03/11/21 08:00 Pulse Ox 95 03/11/21 08:00 Intake & Output 03/10/21 03/11/21 03/11/21 18:59 06:59 18:59 Intake Total 7096.124 7509.826 107.368 Output Total 1529 1260 250 Balance -290.682 -151.174 -142.632 Weight 131.3 kg 131.7 kg Intake: IV 611 243 16 A line Flush 36 33 6 Ampicillin-Sulbactam 1.5 100 100 gm In Sodium Chloride 0.9 % 50 ml @ 100 mls/hr IVPB Q6HR TERI Rx#:[id number] Sodium Chloride 0.9% 1, 125 110 10 000 ml @ 10 mls/hr IV . Q24H TERI Rx#:[id number] Intake, IV Titration 627.318 865.826 91.368 Amount fentaNYL (PF). 1,000 mcg 481.232 392.688 91.368 In Sodium Chloride 0.9% 80 ml @ Per Protocol IV . Q0M TERI Rx#:[id number] propofoL 1,000 mg In 146.086 473.138 Empty Bag 1 bag @ Titrate IV .Q0M TERI Rx#: [id number] Output: Urine 1525 1260 250 Estimated Blood Loss 4 Other: Voiding Method Indwelling Catheter Indwelling Catheter Indwelling Catheter ABP, PAP, CO, CI - Last Documented Arterial Blood Pressure 106/59 - Exam In general patient is intubated sedated maintained on mechanical ventilation HEENT head normocephalic and atraumatic Neck is supple no JVD no goiter no lymphadenopathy Chest exam reveals a few scattered crackles no wheezing Cardiac exam reveals regular heart sounds no gallops no murmurs Abdomen is soft nontender no organomegaly with normal bowel sounds Extremity exam reveals no edema no cyanosis or clubbing Neurological examination reveals no gross focal deficit - Labs CBC & Chem 7: 03/11/21 04:05 03/11/21 04:05 Labs: Abnormal Lab Results - Last 24 Hours (Table) 03/10/21 03/10/21 03/10/21 Range/Units 05:10 12:12 23:22 WBC (3.8-10.6) k/uL RBC (4.30-5.90) m/uL Hgb (13.0-17.5) gm/dL Hct (39.0-53.0) % ABG pH (7.35-7.45) ABG pO2 (83-108) mmHg ABG HCO3 (21-25) mmol/L ABG Total CO2 (19-24) mmol/L Sodium (137-145) mmol/L Creatinine (0.66-1.25) mg/dL Glucose (74-99) mg/dL POC Glucose (mg/dL) 109 H 100 H (75-99) mg/dL Calcium (8.4-10.2) mg/dL Ferritin 1230.7 H (22.0-322.0) ng/mL AST (17-59) U/L ALT (4-49) U/L Lactate Dehydrogenase (313-618) U/L Total Protein (6.3-8.2) g/dL Albumin (3.5-5.0) g/dL 03/11/21 03/11/21 03/11/21 Range/Units 04:05 04:05 05:25 WBC 12.7 H (3.8-10.6) k/uL RBC 3.83 L (4.30-5.90) m/uL Hgb 11.3 L (13.0-17.5) gm/dL Hct 34.3 L (39.0-53.0) % ABG pH 7.46 H (7.35-7.45) ABG pO2 81 L (83-108) mmHg ABG HCO3 30 H (21-25) mmol/L ABG Total CO2 31 H (19-24) mmol/L Sodium 136 L (137-145) mmol/L Creatinine 0.64 L (0.66-1.25) mg/dL Glucose 103 H (74-99) mg/dL POC Glucose (mg/dL) (75-99) mg/dL Calcium 8.3 L (8.4-10.2) mg/dL Ferritin (22.0-322.0) ng/mL AST 78 H (17-59) U/L ALT 265 H (4-49) U/L Lactate Dehydrogenase 775 H (313-618) U/L Total Protein 5.0 L (6.3-8.2) g/dL Albumin 2.8 L (3.5-5.0) g/dL Assessment and Plan Plan: 1. Acute COVID-19 pneumonia patient started on IV Decadron and subcu Lovenox pulmonary consultation was requested, patient developed acute hypoxic respiratory failure requiring intubation and mechanical ventilation 2. Underlying history of asthma 3. Underlying history of morbid obesity 4. Hyponatremia, patient started on IV normal months leading 5. Elevated liver enzymes, will monitor closely 6. Evidence of ileus patient is maintained on NG tube to suction, surgical consultation following At this time patient was seen and examined in the emergency room he was started on subcu Lovenox and IV dexamethasone, vitamin C and vitamin D and zinc supplements he was also started on inhaled bronchodilators patient will be admitted to medical floor pulmonary consultation was requested. Patient was seen by pulmonary he is maintained on oxygen supplements, IV Decadron, subcu Lovenox, patient has improved since yesterday
--- NOTE | 2021-03-12 10:35 | P.PN ---
Subjective Progress Note Date: 03/12/21 Progress note dated 02/27/2021. 35-year-old male admitted with a diagnosis of acute hypoxemic respiratory failure secondary to COVID 19 pneumonia. Chest x-ray showed multifocal bilateral infiltrates. In addition, the patient is morbidly obese, likely has sleep apnea syndrome, has lymphopenia, hyponatremia, and elevated liver function tests, all secondary to COVID 19. Currently, the patient's on saline at 75 mL an hour, and high flow nasal O2 at 15 L/m. White count 6.2, hemoglobin 13.8, hematocrit 39.0, and platelet count 262,000. D-dimer is 1.51. Sodium 127, potassium 4, chlorides 94, CO2 25, anion gap 8, BUN 13, creatinine 0.81. LDH is 1969, and C-reactive protein is 8.9. Chest x-ray shows bilateral infiltrates. Progress note dated 02/28/2021. 35-year-old male with a diagnosis of acute hypoxemic respiratory failure secondary to COVID 19 pneumonia. Chest x-ray showed multifocal bilateral infiltrates. The patient also has obesity, sleep apnea syndrome, lymphopenia, hyponatremic, and liver function abnormalities, all consistent with coronavirus infection. Yesterday, the patient was on high flow nasal O2, and nonrebreather mask. This morning, the respiratory therapist switch him over to AIRVO, at 60 L/m and 90% FiO2. The patient is not receiving any IV fluids. D-dimer is 4.62. Progress note dated 03/06/2021. 35-year-old male that I saw last on February 28. The patient was admitted on the , and was intubated on the . I saw him last on February 28. He was admitted with a diagnosis of COVID 19 pneumonia. Currently, the patient's on the volume assist control mode, rate 32, tidal volume 420, FiO2 55% to be dropped down to 80%, and PEEP 16. Blood gases show a PaO2 of 88, PaCO2 49, pH is 7.42. The patient's currently on Nimbex at 2 mcg/kg/m, propofol at 40 mc g/kg/m, fentanyl at 1 mcg/kg/h, saline at 75 mL an hour, and vital high protein at 30 mL an hour, with a goal of 52. The patient will get a daily interruption of sedation today. He may benefit from a spontaneous breathing trial, we'll have to see. Currently, his PEEP values still quite high. White count 11.9, hemoglobin 11.4, hematocrit 36, and platelet count 265,000. D-dimer is 1.7. Sodium 133, potassium 4.8, chlorides 100, CO2 31, anion gap 2, BUN 21, and creatinine 0.63. LDH is 938, and C-reactive protein is 0.8. Chest x-ray shows diffuse bilateral infiltrates, which may be a bit improved. Progress note dated 03/07/2021. 35-year-old male, who is again seen in room 255. The patient remains on the mechanical ventilator. The patient was initially admitted on February 24, and was intubated on March 01. Ventilator settings include the volume assist control mode, rate 32, tidal volume 420, FiO2 50%, PEEP of 12. Arterial blood gases show a PaO2 of 71, pCO2 45, and pH is 7.44. The patient's currently on Nimbex at 1 mcg/kg/m, propofol at 40 mcg/kg/m, and fentanyl at 1 mcg/kg/h. Patient's getting saline at 75 mL an hour, and vital high protein at 52 mL an hour, which is goal. White count 9.8, hemoglobin 11.4, hematocrit 33.1, and platelet count is 234,000. D-dimer 1.73. Sodium 131, potassium 4.6, chlorides 101, CO2 30, anion gap is 0. BUN 20, creatinine 0.56. LDH is 895. Chest x-ray shows stable diffuse bilateral infiltrates. Progress note dated 03/08/2021. 35-year-old male, seen again in room 255. The patient remains on the mechanical ventilator. The patient is on the volume assist control mode, rate 32, tidal volume 420, FiO2 50%, PEEP of 12. Blood gases show pO2 78, pCO2 44, pH 7.45. The patient is currently on fentanyl 1.4 mcg/kg/h, propofol, at 50 mcg/kg/m, Nimbex at 1.5 mcg/kg/m, saline at 75 mL an hour, Cleveprex, currently on hold, and vital high protein at 44 mL an hour, which is goal. The PEEP will be dropped from 12 to 10. In addition, we've asked surgery to consider doing a tracheostomy tube and PEG tube placement. Current labs include a white count 9, hemoglobin 11.5, hematocrit 33.1, and platelet count 227,000. D-dimer is 1.84. Sodium 136, potassium 4.5, chlorides 104, CO2 31, anion gap 1, BUN 16, creatinine 0.5 to, C-reactive protein less than 0.5, and LDH 902. No chest x- ray today. The chest x-ray yesterday showed diffuse bilateral stable infiltrates. Progress note dated 03/09/2021. 35-year-old male, again seen, and room 255. In the hospital now for 13 days, admitted on 02/24/2021. The patient remains on the mechanical ventilator. The patient is scheduled for tracheostomy and PEG tube placement on Saturday. The patient is on a volume assist control mode, rate 32, tidal volume 420, FiO2 50%, and PEEP of 10. Blood gases show a PaO2 of 73, pCO2 48, and a pH is 7.42. The patient's currently on Nimbex at 2 mcg/kg/m, propofol at 50 mcg/kg/m, fentanyl at 3 mcg/kg/h, saline at 10 mL an hour, and vital high 13 at goal, which is 44 mL an hour. We will attempt to discontinue the Nimbex today. Previous attempts of daily interruption of sedation have not been beneficial. White count 9.9, hemoglobin 11.6, hematocrit 36.2, platelet count 312,000. D-dimer 3.4, sodium 139, potassium 4.3, chlorides 106, CO2 31, anion gap 2, BUN and creatinine were 17, and 0.49 respectively. Chest x-ray show some improvement in aeration in the left lower lobe. Progress note dated 03/10/2021. 35-year-old white male, who is going to have a tracheostomy and PEG tube placed today. The surgery was done by Dr. Vargas. The patient is again seen today in room 255. He's been in the hospital now for 14 days. The patient remains on mechanical ventilator. He is on the volume assist control mode, rate 32, tidal volume 420, FiO2 50%, PEEP of 10. Blood gases show pO2 66, pCO2 43, pH 7.46. The patient's on propofol at 35 mcg/kg/m, and fentanyl at 3 mcg/kg per hour. Nimbex has been discontinued. He is getting saline at 25 mL an hour. Tube feedings are currently on hold. White count 10.2, hemoglobin 11.5, hematocrit 33.7, platelet count 196,000. D-dimer 4.93. Fibrinogen 156. Sodium 137, potassium 4.3, chlorides 105, CO2 30, anion gap 2, BUN 16, creatinine 0.57. Chest x-ray continues to show bilateral infiltrates. The patient is seen today for the first 2020 in follow-up in the intensive care unit. He did undergo trach D ostomy tube and PEG tube placement on 03/10/2021. He remains on mechanical ventilator at assist control with a rate of 32. Tidal volume 420. FiO2 50% and a PEEP of 10. Morning blood gases reveal pO2 of 81, pCO2 41, pH 7.46. He is currently sedated on propofol at 45 mcg/kg/m. Fentanyl at 3 mcg/kg per hour. 0.9 normal saline at 10 O's per hour. Tube feedings remain on hold until later today. He was receiving vital HPI 44 ML's per hour which is goal. Chest x-ray continues to show bilateral patchy opacities more so on the lower lung sylvester lesser extent in the right upper lobe. Blood cultures reveal no growth. Initial sputum culture revealed sinus a with Moraxella catarra. White count 12.7. Hemoglobin 11.3. Sodium 136. Potassium 4.2. Creatinine 0.64. AST 78. ALT 265. LDH 775. C-reactive protein 0.6. He is currently on Unasyn. Remains on dexamethasone, Lovenox. The patient is seen today 03/12/2021 follow-up in the intensive care unit. He was admitted on 02/24/2021 for hypoxemic respiratory failure secondary to COVID- 19 pneumonia. Requiring subsequent intubation on 03/01/2021. He has since undergone tracheostomy and PEG tube placements on 03/10/2021. His undergone daily interruption of sedation. Yesterday he was on pressure support of 10 and a PEEP of 5 for approximate 2-1/2 hours. He developed increased respiratory rate in the 40s and was complaining of shortness of breath. While off sedation he is alert and appropriate. Texting in on his phone. This morning vent settings are assist control at a rate of 32, tidal volume 420, FiO2 50% and a PEEP of 5. Blood gases reveal a pO2 of 84, pCO2 39, pH 7.47. He is lightly sedated on propofol at 20 mcg/kg/m. Fentanyl at 2 g/kg per hour. 0.9 normal saline at KVO. He is being nourished with vital HPI 33 ML's per hour which is goal. Currently off the ampicillin. Chest x-ray continues to show stable bilateral diffuse infiltrates. White count 14.7. Hemoglobin 11.7. D-dimer 7 .59. Sodium 135. Potassium 4.2. Creatinine 0.59. LDH 775. C-reactive protein 0.5. He is currently on Lovenox, Decadron, bronchodilators, vitamin supplements. Objective - Vital Signs Vital signs: Vital Signs Temp 98.6 F 03/12/21 08:00 Pulse 49 L 03/12/21 10:00 Resp 17 03/12/21 10:00 BP 118/69 03/12/21 10:00 Pulse Ox 96 03/12/21 10:00 Intake & Output 03/11/21 03/12/21 03/12/21 18:59 06:59 18:59 Intake Total 186.193 0151.387 283.487 Output Total 1355 1075 230 Balance -465.909 71.387 53.487 Weight 131.7 kg 133.2 kg Intake: IV 206 156 39 A line Flush 36 36 9 Ampicillin-Sulbactam 1.5 50 gm In Sodium Chloride 0.9 % 50 ml @ 100 mls/hr IVPB Q6HR TERI Rx#:[id number] Sodium Chloride 0.9% 1, 120 120 30 000 ml @ 10 mls/hr IV . Q24H TERI Rx#:[id number] Intake, IV Titration 554.091 504.387 115.487 Amount fentaNYL (PF). 1,000 mcg 385.976 337.392 41.472 In Sodium Chloride 0.9% 80 ml @ Per Protocol IV . Q0M TERI Rx#:[id number] propofoL 1,000 mg In 168.115 166.995 74.015 Empty Bag 1 bag @ Titrate IV .Q0M TERI Rx#: [id number] Tube Feeding 99 396 99 Other 30 90 30 Output: Urine 1355 1075 230 Other: Voiding Method Indwelling Catheter Indwelling Catheter Indwelling Catheter ABP, PAP, CO, CI - Last Documented Arterial Blood Pressure 110/54 - Exam GENERAL EXAM: Sedated, 35-year-old gentleman, on mechanical ventilator, comfortable in no apparent distress. HEAD: Normocephalic. EYES: Normal reaction of pupils, equal size. NOSE: Clear with pink turbinates. THROAT: No erythema or exudates. NECK: Tracheostomy tube secured in place. No masses, no JVD. CHEST: No chest wall deformity. LUNGS: Equal air entry with bilateral coarse crackles. CVS: S1 and S2 normal with no audible murmur, regular rhythm. ABDOMEN: PEG tube exit site clean and dry. No hepatosplenomegaly, normal bowel sounds, no guarding or rigidity. SPINE: No scoliosis or deformity SKIN: No rashes CENTRAL NERVOUS SYSTEM: Sedated, tone is normal in all 4 extremities. EXTREMITIES: There is no peripheral edema. No clubbing, no cyanosis. Peripheral pulses are intact. - Labs CBC & Chem 7: 03/12/21 04:15 03/12/21 04:15 Labs: Abnormal Lab Results - Last 24 Hours (Table) 03/09/21 03/11/21 03/11/21 Range/Units 05:25 04:05 11:46 WBC (3.8-10.6) k/uL RBC (4.30-5.90) m/uL Hgb (13.0-17.5) gm/dL Hct (39.0-53.0) % D-Dimer (<0.60) mg/L FEU ABG pH (7.35-7.45) ABG HCO3 (21-25) mmol/L ABG Total CO2 (19-24) mmol/L Sodium (137-145) mmol/L Creatinine (0.66-1.25) mg/dL Glucose (74-99) mg/dL POC Glucose (mg/dL) 101 H (75-99) mg/dL Ferritin 1355.4 H (22.0-322.0) ng/mL Lactate Dehydrogenase (313-618) U/L LD Isoenzymes 307 H (100-220) U/L LD 1 15 L (19-38) % LD 4 13 H (3-12) % LD 5 17 H (3-14) % 03/11/21 03/12/21 03/12/21 Range/Units 23:46 04:15 04:15 WBC 14.7 H (3.8-10.6) k/uL RBC 3.87 L (4.30-5.90) m/uL Hgb 11.7 L (13.0-17.5) gm/dL Hct 34.4 L (39.0-53.0) % D-Dimer 7.59 H (<0.60) mg/L FEU ABG pH (7.35-7.45) ABG HCO3 (21-25) mmol/L ABG Total CO2 (19-24) mmol/L Sodium (137-145) mmol/L Creatinine (0.66-1.25) mg/dL Glucose (74-99) mg/dL POC Glucose (mg/dL) 107 H (75-99) mg/dL Ferritin (22.0-322.0) ng/mL Lactate Dehydrogenase (313-618) U/L LD Isoenzymes (100-220) U/L LD 1 (19-38) % LD 4 (3-12) % LD 5 (3-14) % 03/12/21 03/12/21 03/12/21 Range/Units 04:15 05:53 06:00 WBC (3.8-10.6) k/uL RBC (4.30-5.90) m/uL Hgb (13.0-17.5) gm/dL Hct (39.0-53.0) % D-Dimer (<0.60) mg/L FEU ABG pH 7.48 H (7.35-7.45) ABG HCO3 29 H (21-25) mmol/L ABG Total CO2 30 H (19-24) mmol/L Sodium 135 L (137-145) mmol/L Creatinine 0.59 L (0.66-1.25) mg/dL Glucose 103 H (74-99) mg/dL POC Glucose (mg/dL) 100 H (75-99) mg/dL Ferritin (22.0-322.0) ng/mL Lactate Dehydrogenase 775 H (313-618) U/L LD Isoenzymes (100-220) U/L LD 1 (19-38) % LD 4 (3-12) % LD 5 (3-14) % Assessment and Plan Assessment: 1 Acute hypoxemic respiratory failure, secondary to COVID 19 pneumonia/pneumonitis, requiring intubation and mechanical ventilation on 03/01/2021. 2 Failure to progress on mechanical ventilation, tracheostomy tube placement and PEG tube placed on 03/10/2021. 3 Acute ileus, requiring decompression with nasogastric tube. 4 Methicillin sensitive staph aureus and Moraxella catarrhalis tracheobronchitis/bronchopneumonia, treated with Unasyn. 5 Morbid obesity. 6 Possible sleep apnea syndrome. 7 Lymphopenia. 8 Elevated liver function tests, secondary to coronavirus infection. 9 Hyponatremia, resolved. Plan: The patient was seen and evaluated by Dr. Joyner Chest x-ray, ABGs and labs reviewed Increase Lovenox to 60 mg twice a day Continue with daily interruption of sedation Continue with a spontaneous breathing trial May require discharge to select specialty We will continue to follow and make further recommendations based on his clinical status Critical care time 36 minutes I, the cosigning physician, performed a history & physical examination of the patient. Lungs sounds echoes in the bilateral posterior bases. Maintaining good O2 saturations in the 90s on 50% FiO2 and a PEEP of 5 via mechanical ventilator. I discussed the assessment and plan of care with my nurse practitioner, Melanie Hall. I attest to the above note as dictated by her.
--- NOTE | 2021-03-12 11:14 | P.PN ---
Subjective Progress Note Date: 03/12/21 Osmar Drummond, is a 35-year-old male patient of Dr. Hdz, who presented to [facility] emergency room with a chief complaint of worsening shortness of breath and chest tightness. Patient was also having persistent cough his symptoms started 12 days ago however he had severe worsening of his symptoms in the last 3 days. He stated that last Saturday he was tested for COVID-19, results came back positive on Saturday. He was evaluated in the emergency room vital examination on presentation revealed a temperature of 103 pulse 92 respiration 18 blood pressure 124/77 pulse ox 92% on room air. White blood count was 4.2 hemoglobin 15.4 platelet count 161 sodium 125 potassium 3.9 chloride 88 calcium 7.8 BUN 8 creatinine 0.94 AST 98 ALT 57 LDH 1623 C-reactive protein 41.1 EKG done in the emergency room revealed normal sinus rhythm normal EKG, chest x-ray done in the emergency room revealed patchy bilateral infiltrates compatible with multifocal pneumonia no pneumothorax. Patient was admitted to medical floor pulmonary consultation was requested. On 02/25/2021 patient was seen and examined on the medical floor he is alert and oriented 3 in no distress, he is still complaining of cough and shortness of breath otherwise he denies any complaints there is no fever or chills no hea dache or dizziness no chest pain no nausea or vomiting no abdominal pain no diarrhea no blood in the stools no burning was urination no frequency or urgency and no hematuria. On 02/26/2021 patient was seen and examined on the medical floor he is alert and oriented 3 in no distress he seems to be worse today he is having more tachycardia and tachypnea, his temperature is 99.8 pulse ox is down to 82% on 15 L high flow cannula inflammatory markers are up his LDH is 1735 up from 1440 yesterday C-reactive protein is up to 7.2 up from 6 yesterday d-dimer is up to 1.21 up from 0.77 yesterday, at this time patient is maintained on inhaled bronchodilators, IV Decadron, subcu Lovenox,, repeat chest x-ray done today reveals by basilar infiltrates and opacities consistent with COVID-19 infection without any significant change from previous x-ray on 02/27/2021 patient was seen and examined on the medical floor, he is alert and oriented 3 in no apparent distress he is reporting some improvement in his shortness of breath, vital exam reveals a temperature of 99.1 pulse 102 respiration 20 blood pressure 121/84 pulse ox 87% on 15 L high flow cannula, white blood count is 6.2 hemoglobin 13.8 platelet count 262 d-dimer 1.51 sodium 127 potassium 4.0 chloride 94 CO2 25 BUN 13 creatinine 0.81 LDH 1969 C-reactive protein up to 8.9, patient is complaining of cough and shortness of breath otherwise he denies any complaints there is no fever or chills no headache or dizziness no chest pain no nausea or vomiting no abdominal pain no diarrhea no blood in the stools no burning with urination no frequency or urgency and no hematuria On 02/28/2021 patient was seen and examined on the medical floor he is alert and oriented 3 in no apparent distress, he is still maintained on Airvo with FiO2 of 90% his temperature is 98.7 pulse 116 respiration 28 blood pressure 145/81 pulse ox 93% he is complaining of shortness of breath and occasional cough otherwise he denies any complaints there is no fever or chills no headache or dizziness no chest pain no nausea or vomiting no abdominal pain no diarrhea no blood in the stools no burning with urination no frequency or urgency and no hematuria. On 03/01/2021 patient was seen and examined in the ICU he is intubated sedated maintained on mechanical ventilation air this morning patient was having worsening shortness of breath and decreased O2 sat duration despite Airvo, he was transferred to ICU and was intubated. Currently patient is on assist c ontrol tidal volume of 400 rate of 30 FiO2 100% and PEEP of 10 arterial blood gas reveals a pH of 7.24 pCO2 55 PO2 78 sodium is 127 LDH 2034 C-reactive protein 4.5 pulmonary are following closely On 03/02/2021 patient was seen and examined in the ICU he is intubated sedated maintained on mechanical ventilation air this morning patient was having worsening shortness of breath and decreased O2 sat duration despite Airvo, he was transferred to ICU and was intubated. Currently patient is on assist control tidal volume of 400 rate of 30 FiO2 100% and PEEP of 10 arterial blood gas reveals a pH of 7.24 pCO2 55 PO2 78 sodium is 127 LDH 203 C-reactive protein 4.5 pulmonary are following closely. Patient has evidence of ileus, he is maintained on NG tube to suction, surgical consultation was requested. On 03/03/2021 patient was seen and examined in the ICU he is intubated sedated maintained on mechanical ventilation air this morning patient was having worsening shortness of breath and decreased O2 sat duration despite Airvo, he was transferred to ICU and was intubated. Currently patient is on assist control tidal volume of 420 rate of 30 FiO2 85 % and PEEP of 16 arterial blood gas reveals a pH of 7.39 pCO2 55 PO2 66 sodium is 134 LDH 2034 C-reactive protein 4.5 pulmonary are following closely. Patient has evidence of ileus, he is maintained on NG tube to suction, surgical consultation was requested. On 03/04/2021 patient was seen and examined in the ICU he is intubated sedated maintained on mechanical ventilation air this morning patient was having worsening shortness of breath and decreased O2 sat duration despite Airvo, he was transferred to ICU and was intubated. Currently patient is on assist control tidal volume of 420 rate of 30 FiO2 85 % and PEEP of 16 arterial blood gas reveals a pH of 7.41 pCO2 53 PO2 89 sodium is 136 D-Dimer 2.0 pulmonary are following closely.\\ On 03/05/2021 patient was seen and examined in the ICU he is intubated sedated maintained on mechanical ventilation, patient is maintained on assist control tidal volume 42 rate of 30 FiO2 75% and PEEP at 16 arterial blood gas reveals a pH of 7.43 pCO2 48 and PO2 84 white blood count is 11.6 hemoglobin 11.3 platelet count 305 d-dimer 1.85 On 03/06/2021 patient was seen and examined in the ICU he is intubated sedated maintained on mechanical ventilation, patient is maintained on assist control tidal volume 420 rate of 30 FiO2 55% and PEEP at 12 arterial blood gas reveals a pH of 7.43 pCO2 49 and PO2 88 white blood count is 11.6 hemoglobin 11.9 platelet count 305 d-dimer 1.7 patient had a sedation holiday today he did well he was alert and following commands On 03/07/2021 patient was seen and examined in the ICU he is intubated sedated maintained on mechanical ventilation patient is maintained on assist control tidal volume 420 rate 32 FiO2 50% with a PEEP of 12 arterial blood gas reveals a pH of 7.44 pCO2 45 and PaO2 of 71 patient is having sedation holidays and is responding well at that time. On 03/08/2021, patient was seen and examined in the ICU he is intubated sedated maintained on mechanical ventilation, arterial blood gas Reveals a pH of 7.45 pCO2 44 PaO2 78 d-dimer 1.84, patient is maintained on assist control rate 32 tidal folium 420 FiO2 50% and a PEEP of 12 On 03/09/2021 patient was seen and examined in the ICU he is intubated sedated maintained on mechanical ventilation, he is scheduled for tracheostomy and PEG tube placement tomorrow, arterial blood gas reveals a pH of 7.4 to pCO2 48 PaO2 73 white blood count is 9.9 hemoglobin 11.6 platelet count 212 d-dimer is elevated at 3.4 On 03/10/2021, patient was seen and examined in the ICU he is intubated sedated maintained on mechanical ventilation, arterial blood gas Reveals a pH of 7.45 pCO2 44 PaO2 78 d-dimer 1.84, patient is maintained on assist control rate 32 tidal folium 420 FiO2 50% and a PEEP of 12 Patient is scheduled for tracheostomy and PEG tube placement today. On 03/11/2021 patient was seen and examined in the ICU he is intubated, sedated and maintained on mechanical ventilation, he underwent racheostomy and PEG tube placement yesterday, his vent setting patient is maintained on assist control rate of 32 tidal volume 420 FiO2 50% and PEEP of 10 ABG reveals pH 7.46 pCO2 41 PaO2 81 liver enzymes are slightly elevated was AST at 78 ALT at 265 On 03/12/2021 patient was seen and examined in the ICU he is intubated through tracheostom, he is alert responsive trying to answer questions, he is maintained on BiPAP, there is no fever or chills no headache or dizziness no chest pain no shortness of breath no palpitation no cough no nausea or vomiting no abdominal pain no diarrhea no blood in the stools no burning with urination no frequency or urgency and no hematuria, patient is improving gradually. Objective - Vital Signs Vital signs: Vital Signs Temp 98.6 F 03/12/21 08:00 Pulse 55 L 03/12/21 09:00 Resp 14 03/12/21 09:00 BP 101/59 03/12/21 09:00 Pulse Ox 98 03/12/21 09:00 Intake & Output 03/11/21 03/12/21 03/12/21 18:59 06:59 18:59 Intake Total 101.284 4996.387 270.487 Output Total 1355 1075 170 Balance -465.909 71.387 100.487 Weight 131.7 kg 133.2 kg Intake: IV 206 156 26 A line Flush 36 36 6 Ampicillin-Sulbactam 1.5 50 gm In Sodium Chloride 0.9 % 50 ml @ 100 mls/hr IVPB Q6HR TERI Rx#:[id number] Sodium Chloride 0.9% 1, 120 120 20 000 ml @ 10 mls/hr IV . Q24H TERI Rx#:[id number] Intake, IV Titration 554.091 504.387 115.487 Amount fentaNYL (PF). 1,000 mcg 385.976 337.392 41.472 In Sodium Chloride 0.9% 80 ml @ Per Protocol IV . Q0M TERI Rx#:[id number] propofoL 1,000 mg In 168.115 166.995 74.015 Empty Bag 1 bag @ Titrate IV .Q0M TERI Rx#: [id number] Tube Feeding 99 396 99 Other 30 90 30 Output: Urine 1355 1075 170 Other: Voiding Method Indwelling Catheter Indwelling Catheter Indwelling Catheter ABP, PAP, CO, CI - Last Documented Arterial Blood Pressure 115/55 - Exam In general patient is intubated through tracheostomy, he is alert off sedation HEENT head normocephalic and atraumatic Neck is supple no JVD no goiter no lymphadenopathy Chest exam reveals a few scattered crackles no wheezing Cardiac exam reveals regular heart sounds no gallops no murmurs Abdomen is soft nontender no organomegaly with normal bowel sounds Extremity exam reveals no edema no cyanosis or clubbing Neurological examination reveals no gross focal deficit - Labs CBC & Chem 7: 03/12/21 04:15 03/12/21 04:15 Labs: Abnormal Lab Results - Last 24 Hours (Table) 03/09/21 03/11/21 03/11/21 Range/Units 05:25 04:05 11:46 WBC (3.8-10.6) k/uL RBC (4.30-5.90) m/uL Hgb (13.0-17.5) gm/dL Hct (39.0-53.0) % D-Dimer (<0.60) mg/L FEU ABG pH (7.35-7.45) ABG HCO3 (21-25) mmol/L ABG Total CO2 (19-24) mmol/L Sodium (137-145) mmol/L Creatinine (0.66-1.25) mg/dL Glucose (74-99) mg/dL POC Glucose (mg/dL) 101 H (75-99) mg/dL Ferritin 1355.4 H (22.0-322.0) ng/mL Lactate Dehydrogenase (313-618) U/L LD Isoenzymes 307 H (100-220) U/L LD 1 15 L (19-38) % LD 4 13 H (3-12) % LD 5 17 H (3-14) % 03/11/21 03/12/21 03/12/21 Range/Units 23:46 04:15 04:15 WBC 14.7 H (3.8-10.6) k/uL RBC 3.87 L (4.30-5.90) m/uL Hgb 11.7 L (13.0-17.5) gm/dL Hct 34.4 L (39.0-53.0) % D-Dimer 7.59 H (<0.60) mg/L FEU ABG pH (7.35-7.45) ABG HCO3 (21-25) mmol/L ABG Total CO2 (19-24) mmol/L Sodium (137-145) mmol/L Creatinine (0.66-1.25) mg/dL Glucose (74-99) mg/dL POC Glucose (mg/dL) 107 H (75-99) mg/dL Ferritin (22.0-322.0) ng/mL Lactate Dehydrogenase (313-618) U/L LD Isoenzymes (100-220) U/L LD 1 (19-38) % LD 4 (3-12) % LD 5 (3-14) % 03/12/21 03/12/21 03/12/21 Range/Units 04:15 05:53 06:00 WBC (3.8-10.6) k/uL RBC (4.30-5.90) m/uL Hgb (13.0-17.5) gm/dL Hct (39.0-53.0) % D-Dimer (<0.60) mg/L FEU ABG pH 7.48 H (7.35-7.45) ABG HCO3 29 H (21-25) mmol/L ABG Total CO2 30 H (19-24) mmol/L Sodium 135 L (137-145) mmol/L Creatinine 0.59 L (0.66-1.25) mg/dL Glucose 103 H (74-99) mg/dL POC Glucose (mg/dL) 100 H (75-99) mg/dL Ferritin (22.0-322.0) ng/mL Lactate Dehydrogenase 775 H (313-618) U/L LD Isoenzymes (100-220) U/L LD 1 (19-38) % LD 4 (3-12) % LD 5 (3-14) % Assessment and Plan Plan: 1. Acute COVID-19 pneumonia patient started on IV Decadron and subcu Lovenox pulmonary consultation was requested, patient developed acute hypoxic respiratory failure requiring intubation and mechanical ventilation 2. Underlying history of asthma 3. Underlying history of morbid obesity 4. Hyponatremia, patient started on IV normal months leading 5. Elevated liver enzymes, will monitor closely 6. Evidence of ileus patient is maintained on NG tube to suction, surgical consultation following At this time patient was seen and examined in the emergency room he was started on subcu Lovenox and IV dexamethasone, vitamin C and vitamin D and zinc supplements he was also started on inhaled bronchodilators patient will be admitted to medical floor pulmonary consultation was requested. Patient was seen by pulmonary he is maintained on oxygen supplements, IV Decadron, subcu Lovenox, patient has improved since yesterday
[2021-03-12 11:58] LABS: Glucose,Whole Blood 133 mg/dL (75-99)
[2021-03-12] MEDS: CLEVIDIPINE BUTYRATE 25 MG in EMPTY BAG 1 BAG IV SCH (15:35)
--- NOTE | 2021-03-12 16:20 | P.PN ---
Subjective Progress Note Date: 03/12/21 CHIEF COMPLAINT: COVID pneumonia HISTORY OF PRESENT ILLNESS: The patient is a 35 year old male with Covid pneumonia status post trach and PEG. The patient remains in the ICU ventilated. He is awake and alert and comfortable. He has been started on tube feeds. REVIEW OF ORGAN SYSTEMS: On mechanical ventillation. No new chest pain. Patient's BMI of 40 with morbid obesity PHYSICAL EXAM: VITALS: Reviewed CONSTITUTIONAL: Well developed and in no acute distress. EYES: Conjuctivae without sclera icterus. HEAD, EARS, NOSE, THROAT: Head is atraumatic, normocephalic. Trachea intact. RESPIRATORY: Non-labored respirations and equal bilateral excursions. No gross wheezes. Mechanical ventilation CARDIOVASCULAR: Palpable 2+ radial pulses. ABDOMEN: No peritonitis. G-tube intact. NEUROLOGIC: No focal or lateralizing signs PSYCH: Awake and alert. Appropriate affect. SKIN: Well perfused with good skin turgor. CLINCAL LABS: Reviewed. WBC elevated over 14,000 from 12,000 yesterday. STUDIES: Chest x-ray independently without pneumothorax. This is my independent interpretation. ASSESSMENT: 1. COVID pneumonia 2. Status post trach and PEG 3. Morbid obesity due to excess calories, BMI 43.4 PLAN: 1. Tube feeds per direction of dietitian to goal 2. Continue supportive care Objective - Vital Signs Vital signs: Vital Signs Temp 98.6 F 03/12/21 12:00 Pulse 49 L 03/12/21 16:00 Resp 17 03/12/21 16:00 BP 122/84 03/12/21 16:00 Pulse Ox 95 03/12/21 16:00 Intake & Output 03/11/21 03/12/21 03/12/21 18:59 06:59 18:59 Intake Total 743.396 6121.387 718.307 Output Total 1355 1075 915 Balance -465.909 71.387 -196.693 Weight 131.7 kg 133.2 kg Intake: IV 206 156 117 A line Flush 36 36 27 Ampicillin-Sulbactam 1.5 50 gm In Sodium Chloride 0.9 % 50 ml @ 100 mls/hr IVPB Q6HR TERI Rx#:[id number] Sodium Chloride 0.9% 1, 120 120 90 000 ml @ 10 mls/hr IV . Q24H TERI Rx#:[id number] Intake, IV Titration 554.091 504.387 214.307 Amount fentaNYL (PF). 1,000 mcg 385.976 337.392 140.292 In Sodium Chloride 0.9% 80 ml @ Per Protocol IV . Q0M TERI Rx#:[id number] propofoL 1,000 mg In 168.115 166.995 74.015 Empty Bag 1 bag @ Titrate IV .Q0M TERI Rx#: [id number] Tube Feeding 99 396 297 Other 30 90 90 Output: Urine 1355 1075 915 Other: Voiding Method Indwelling Catheter Indwelling Catheter Indwelling Catheter ABP, PAP, CO, CI - Last Documented Arterial Blood Pressure 114/60 - Labs CBC & Chem 7: 03/12/21 04:15 03/12/21 04:15 Labs: Abnormal Lab Results - Last 24 Hours (Table) 03/09/21 03/11/21 03/12/21 Range/Units 05:25 23:46 04:15 WBC 14.7 H (3.8-10.6) k/uL RBC 3.87 L (4.30-5.90) m/uL Hgb 11.7 L (13.0-17.5) gm/dL Hct 34.4 L (39.0-53.0) % D-Dimer (<0.60) mg/L FEU ABG pH (7.35-7.45) ABG HCO3 (21-25) mmol/L ABG Total CO2 (19-24) mmol/L Sodium (137-145) mmol/L Creatinine (0.66-1.25) mg/dL Glucose (74-99) mg/dL POC Glucose (mg/dL) 107 H (75-99) mg/dL Lactate Dehydrogenase (313-618) U/L LD Isoenzymes 307 H (100-220) U/L LD 1 15 L (19-38) % LD 4 13 H (3-12) % LD 5 17 H (3-14) % 03/12/21 03/12/21 03/12/21 Range/Units 04:15 04:15 05:53 WBC (3.8-10.6) k/uL RBC (4.30-5.90) m/uL Hgb (13.0-17.5) gm/dL Hct (39.0-53.0) % D-Dimer 7.59 H (<0.60) mg/L FEU ABG pH (7.35-7.45) ABG HCO3 (21-25) mmol/L ABG Total CO2 (19-24) mmol/L Sodium 135 L (137-145) mmol/L Creatinine 0.59 L (0.66-1.25) mg/dL Glucose 103 H (74-99) mg/dL POC Glucose (mg/dL) 100 H (75-99) mg/dL Lactate Dehydrogenase 775 H (313-618) U/L LD Isoenzymes (100-220) U/L LD 1 (19-38) % LD 4 (3-12) % LD 5 (3-14) % 03/12/21 03/12/21 Range/Units 06:00 11:55 WBC (3.8-10.6) k/uL RBC (4.30-5.90) m/uL Hgb (13.0-17.5) gm/dL Hct (39.0-53.0) % D-Dimer (<0.60) mg/L FEU ABG pH 7.48 H (7.35-7.45) ABG HCO3 29 H (21-25) mmol/L ABG Total CO2 30 H (19-24) mmol/L Sodium (137-145) mmol/L Creatinine (0.66-1.25) mg/dL Glucose (74-99) mg/dL POC Glucose (mg/dL) 133 H (75-99) mg/dL Lactate Dehydrogenase (313-618) U/L LD Isoenzymes (100-220) U/L LD 1 (19-38) % LD 4 (3-12) % LD 5 (3-14) %
[2021-03-12 18:03] LABS: Glucose,Whole Blood 105 mg/dL (75-99)
[2021-03-12] MEDS: ENOXAPARIN 60 MG/0.6 ML SYRINGE SQ SCH (20:20)
[2021-03-12 23:46] LABS: Glucose,Whole Blood 99 mg/dL (75-99)
[2021-03-12] MEDS: SODIUM CHLORIDE 0.9% 1,000 ML IV SCH (23:49)
[2021-03-13 04:08] LABS: Basophils % (A) 0 %; Eosinophils % (A) 0 %; HGB 12.1 gm/dL (13.0-17.5); Lymphocytes # (A) 0.7 k/uL (1.0-4.8); Lymphocytes % (A) 6 %; MCH 30.7 pg (25.0-35.0); MCHC 34.6 g/dL (31.0-37.0); MCV 88.8 fL (80.0-100.0); Mean Platelet Volume 9.7; Monocytes # (A) 0.4 k/uL (0-1.0); Monocytes % (A) 3 %; Neutrophils # (A) 10.7 k/uL (1.3-7.7); Neutrophils % (A) 90 %; Platelet Count 171 k/uL (150-450); RBC 3.94 m/uL (4.30-5.90); RDW 14.8 % (11.5-15.5); WBC 11.9 k/uL (3.8-10.6)
[2021-03-13 04:25] LABS: ALT 203 U/L (4-49); AST 48 U/L (17-59); African American GFR (CKD) >90 (>60 ml/min/1.73 sqM); Albumin 3.1 g/dL (3.5-5.0); Alkaline Phosphatase 47 U/L (38-126); Anion Gap 5 mmol/L; Blood Urea Nitrogen 18 mg/dL (9-20); C Reactive Protein 0.6 mg/dL (<1.0); Calcium 8.5 mg/dL (8.4-10.2); Carbon Dioxide 27 mmol/L (22-30); Chloride 101 mmol/L (98-107); Glucose 121 mg/dL (74-99); LDH 686 U/L (313-618); Non-African American GFR(CKD) >90 (>60 ml/min/1.73 sqM); Sodium 133 mmol/L (137-145); Total Bilirubin 0.9 mg/dL (0.2-1.3); Total Protein 5.5 g/dL (6.3-8.2)
[2021-03-13] MEDS: METOCLOPRAMIDE 5 MG/ML 2 ML VIAL IVP SCH ×3 (05:30→19:15)
--- NOTE | 2021-03-13 06:47 | P.PN ---
Subjective Progress Note Date: 03/12/21 On 04/09/2021, I'm seeing this patient for a follow-up. This is a 35-year-old male patient was in the intensive care unit for respiratory failure due to COVID-19 related pneumonia. The patient intubated and mechanically ventilated on 03/01/2021 and subsequently the patient failed to wean and failed to recover and the patient required tracheostomy tube insertion and a PEG tube insertion for long-term ventilator care and enteral feeding for nutritional support and this was done on 03/10/2021. The patient is currently off sedation and his been off sedation for the past 24 hours. This morning, the patient patient is on a trach shield at 50% FiO2. He is calm and comfortable. He was taken off th e mechanical ventilator 3 am and his been off the mechanical ventilator since. During the course of the treatment, the patient was also cultured to have MSSA and Moraxella catarrhalis in his sputum. He was treated with antibiotics and currently is off antibiotics. Patient is hemodynamically stable on no pressors. He requires Cleviprex on and off for blood pressure control. He is receiving enteral feeding for dentures support with vital high protein at the rate of 33 mL an hour. Chest x-ray still showing diffuse but the pulmonary infiltrates. Inflammatory markers including LDH from is 686 with a CRP of 0.6. His d-dimer level was is still elevated 7.38 the patient was receiving Lovenox 60 mg subcu every 12 hours. Patient otherwise is tolerating enteral feeding for dentures support. The patient has been afebrile and hemodynamically stable. He remains on Decadron 6 mg IV every 12 hours. He is also on Lovenox for deep prophylaxis. Afebrile.Chest x-ray still showing diffuse bilateral interstitial infiltrates most on the right lower lobe and the patient has a PICC line in left upper extremity. Tracheostomy tube is in a good location. Objective - Vital Signs Vital signs: Vital Signs Temp 98.6 F 03/12/21 12:00 Pulse 59 L 03/12/21 19:00 Resp 21 03/12/21 19:00 BP 118/68 03/12/21 19:00 Pulse Ox 97 03/12/21 19:00 Intake & Output 03/12/21 03/12/21 03/13/21 06:59 18:59 06:59 Intake Total 1146.387 777.307 46 Output Total 1075 1015 60 Balance 71.387 -237.693 -14 Weight 133.2 kg Intake: IV 156 143 13 A line Flush 36 33 3 Sodium Chloride 0.9% 1, 120 110 10 000 ml @ 10 mls/hr IV . Q24H TERI Rx#:[id number] Intake, IV Titration 504.387 214.307 Amount fentaNYL (PF). 1,000 mcg 337.392 140.292 In Sodium Chloride 0.9% 80 ml @ Per Protocol IV . Q0M TERI Rx#:[id number] propofoL 1,000 mg In 166.995 74.015 Empty Bag 1 bag @ Titrate IV .Q0M TERI Rx#: [id number] Tube Feeding 396 330 33 Other 90 90 Output: Urine 1075 1015 60 Other: Voiding Method Indwelling Catheter Indwelling Catheter ABP, PAP, CO, CI - Last Documented Arterial Blood Pressure 114/57 - Exam GENERAL EXAM: Sedated, 35-year-old gentleman, on mechanical ventilator, comfortable in no apparent distress. Tracheostomy tube is in place, and the patient has a Shiley #[address] HEAD: Normocephalic. EYES: Normal reaction of pupils, equal size. NOSE: Clear with pink turbinates. THROAT: No erythema or exudates. NECK: Tracheostomy tube secured in place. No masses, no JVD. CHEST: No chest wall deformity. LUNGS: Equal air entry with bilateral coarse crackles. CVS: S1 and S2 normal with no audible murmur, regular rhythm. ABDOMEN: PEG tube exit site clean and dry. No hepatosplenomegaly, normal bowel sounds, no guarding or rigidity. SPINE: No scoliosis or deformity SKIN: No rashes CENTRAL NERVOUS SYSTEM: Awake and alert and responsive EXTREMITIES: There is no peripheral edema. No clubbing, no cyanosis. Peripheral pulses are intact. - Labs CBC & Chem 7: 03/13/21 03:50 03/13/21 03:50 Labs: Abnormal Lab Results - Last 24 Hours (Table) 03/09/21 03/11/21 03/12/21 Range/Units 05:25 23:46 04:15 WBC 14.7 H (3.8-10.6) k/uL RBC 3.87 L (4.30-5.90) m/uL Hgb 11.7 L (13.0-17.5) gm/dL Hct 34.4 L (39.0-53.0) % D-Dimer (<0.60) mg/L FEU ABG pH (7.35-7.45) ABG HCO3 (21-25) mmol/L ABG Total CO2 (19-24) mmol/L Sodium (137-145) mmol/L Creatinine (0.66-1.25) mg/dL Glucose (74-99) mg/dL POC Glucose (mg/dL) 107 H (75-99) mg/dL Lactate Dehydrogenase (313-618) U/L LD Isoenzymes 307 H (100-220) U/L LD 1 15 L (19-38) % LD 4 13 H (3-12) % LD 5 17 H (3-14) % 03/12/21 03/12/21 03/12/21 Range/Units 04:15 04:15 05:53 WBC (3.8-10.6) k/uL RBC (4.30-5.90) m/uL Hgb (13.0-17.5) gm/dL Hct (39.0-53.0) % D-Dimer 7.59 H (<0.60) mg/L FEU ABG pH (7.35-7.45) ABG HCO3 (21-25) mmol/L ABG Total CO2 (19-24) mmol/L Sodium 135 L (137-145) mmol/L Creatinine 0.59 L (0.66-1.25) mg/dL Glucose 103 H (74-99) mg/dL POC Glucose (mg/dL) 100 H (75-99) mg/dL Lactate Dehydrogenase 775 H (313-618) U/L LD Isoenzymes (100-220) U/L LD 1 (19-38) % LD 4 (3-12) % LD 5 (3-14) % 03/12/21 03/12/21 03/12/21 Range/Units 06:00 11:55 18:01 WBC (3.8-10.6) k/uL RBC (4.30-5.90) m/uL Hgb (13.0-17.5) gm/dL Hct (39.0-53.0) % D-Dimer (<0.60) mg/L FEU ABG pH 7.48 H (7.35-7.45) ABG HCO3 29 H (21-25) mmol/L ABG Total CO2 30 H (19-24) mmol/L Sodium (137-145) mmol/L Creatinine (0.66-1.25) mg/dL Glucose (74-99) mg/dL POC Glucose (mg/dL) 133 H 105 H (75-99) mg/dL Lactate Dehydrogenase (313-618) U/L LD Isoenzymes (100-220) U/L LD 1 (19-38) % LD 4 (3-12) % LD 5 (3-14) % Assessment and Plan Plan: 1 Acute hypoxemic respiratory failure, secondary to COVID 19 pneumon ia/pneumonitis, requiring intubation and mechanical ventilation on 03/01/2021. The patient remains on and off on the ventilator dependent. This morning, the patient is off sedation. He was switched to a trach collar earlier this morning and currently is on a 50% FiO2. His chest x-ray shows smaller lung volumes and some elevation of the right hemidiaphragm. There is some limited infiltration b ilaterally. For all findings are essentially stable and a tracheostomy tube is in a good location. The patient is awake and alert and is following simple commands and moving all 4 extremities without any limitation. He is profoundly weak. The patient remains on Decadron. 2 Failure to progress on mechanical ventilation, tracheostomy tube placement and PEG tube placed on 03/10/2021. 3 Acute ileus, requiring decompression with nasogastric tube, resolved and the patient is having regular bowel movements 4 Methicillin sensitive staph aureus and Moraxella catarrhalis tracheobronchitis/bronchopneumonia, treated with Unasyn. Currently on no antibiotics 5 Morbid obesity. 6 Possible sleep apnea syndrome. 7 Lymphopenia, secondary to above 8 Elevated liver function tests, secondary to coronavirus infection, recovered 9 Hyponatremia, resolved. Plan: Keep the patient off sedation We'll stop the Decadron 6 mg every 24 hours Chest x-ray findings are stable Keep the patient on a trach collar with 50% FiO2 Aggressive physical therapy Anticoagulation with Lovenox at a dose of 60 mg subcu every 12 hours Enteral feeding for nutritional support Currently off Cleviprex We'll continue to follow. May transfer to select specialty for further rehabilitation. Critically care evaluation, more than 30 minutes Time with Patient: Greater than 30
[2021-03-13] MEDS: ALBUTEROL HFA INHALER INHALATION SCH ×4 (07:31→19:45)
--- NOTE | 2021-03-13 07:36 | P.PN ---
Subjective Progress Note Date: 03/13/21 On 04/09/2021, I'm seeing this patient for a follow-up. This is a 35-year-old male patient was in the intensive care unit for respiratory failure due to COVID-19 related pneumonia. The patient intubated and mechanically ventilated on 03/01/2021 and subsequently the patient failed to wean and failed to recover and the patient required tracheostomy tube insertion and a PEG tube insertion for long-term ventilator care and enteral feeding for nutritional support and this was done on 03/10/2021. The patient is currently off sedation and his been off sedation for the past 24 hours. This morning, the patient patient is on a trach shield at 50% FiO2. He is calm and comfortable. He was taken off th e mechanical ventilator 3 am and his been off the mechanical ventilator since. During the course of the treatment, the patient was also cultured to have MSSA and Moraxella catarrhalis in his sputum. He was treated with antibiotics and currently is off antibiotics. Patient is hemodynamically stable on no pressors. He requires Cleviprex on and off for blood pressure control. He is receiving enteral feeding for dentures support with vital high protein at the rate of 33 mL an hour. Chest x-ray still showing diffuse but the pulmonary infiltrates. Inflammatory markers including LDH from is 686 with a CRP of 0.6. His d-dimer level was is still elevated 7.38 the patient was receiving Lovenox 60 mg subcu every 12 hours. Patient otherwise is tolerating enteral feeding for dentures support. The patient has been afebrile and hemodynamically stable. He remains on Decadron 6 mg IV every 12 hours. He is also on Lovenox for deep prophylaxis. Afebrile.Chest x-ray still showing diffuse bilateral interstitial infiltrates most on the right lower lobe and the patient has a PICC line in left upper extremity. Tracheostomy tube is in a good location. Objective - Vital Signs Vital signs: Vital Signs Temp 98.4 F 03/13/21 00:00 Pulse 63 03/13/21 07:00 Resp 62 H 03/13/21 07:00 BP 122/61 03/13/21 07:00 Pulse Ox 94 L 03/13/21 07:00 Intake & Output 03/12/21 03/13/21 03/13/21 18:59 06:59 18:59 Intake Total 777.307 642 46 Output Total 1015 1110 100 Balance -237.693 -468 -54 Weight 130.2 kg Intake: IV 143 156 13 A line Flush 33 36 3 Sodium Chloride 0.9% 1, 110 120 10 000 ml @ 10 mls/hr IV . Q24H TERI Rx#:[id number] Intake, IV Titration 214.307 Amount fentaNYL (PF). 1,000 mcg 140.292 In Sodium Chloride 0.9% 80 ml @ Per Protocol IV . Q0M TERI Rx#:[id number] propofoL 1,000 mg In 74.015 Empty Bag 1 bag @ Titrate IV .Q0M TERI Rx#: [id number] Tube Feeding 330 396 33 Other 90 90 Output: Urine 1015 1110 100 Other: Voiding Method Indwelling Catheter Indwelling Catheter ABP, PAP, CO, CI - Last Documented Arterial Blood Pressure 104/53 - Exam GENERAL EXAM: Sedated, 35-year-old gentleman, on mechanical ventilator, comfortable in no apparent distress. Tracheostomy tube is in place, and the patient has a Shiley #[address] HEAD: Normocephalic. EYES: Normal reaction of pupils, equal size. NOSE: Clear with pink turbinates. THROAT: No erythema or exudates. NECK: Tracheostomy tube secured in place. No masses, no JVD. CHEST: No chest wall deformity. LUNGS: Equal air entry with bilateral coarse crackles. CVS: S1 and S2 normal with no audible murmur, regular rhythm. ABDOMEN: PEG tube exit site clean and dry. No hepatosplenomegaly, normal bowel sounds, no guarding or rigidity. SPINE: No scoliosis or deformity SKIN: No rashes CENTRAL NERVOUS SYSTEM: Awake and alert and responsive EXTREMITIES: There is no peripheral edema. No clubbing, no cyanosis. Peripheral pulses are intact. - Labs CBC & Chem 7: 03/13/21 03:50 03/13/21 03:50 Labs: Abnormal Lab Results - Last 24 Hours (Table) 03/12/21 03/12/21 03/13/21 Range/Units 11:55 18:01 03:50 WBC 11.9 H (3.8-10.6) k/uL RBC 3.94 L (4.30-5.90) m/uL Hgb 12.1 L (13.0-17.5) gm/dL Hct 35.0 L (39.0-53.0) % Neutrophils # 10.7 H (1.3-7.7) k/uL Lymphocytes # 0.7 L (1.0-4.8) k/uL D-Dimer (<0.60) mg/L FEU Sodium (137-145) mmol/L Creatinine (0.66-1.25) mg/dL Glucose (74-99) mg/dL POC Glucose (mg/dL) 133 H 105 H (75-99) mg/dL ALT (4-49) U/L Lactate Dehydrogenase (313-618) U/L Total Protein (6.3-8.2) g/dL Albumin (3.5-5.0) g/dL 03/13/21 03/13/21 Range/Units 03:50 03:50 WBC (3.8-10.6) k/uL RBC (4.30-5.90) m/uL Hgb (13.0-17.5) gm/dL Hct (39.0-53.0) % Neutrophils # (1.3-7.7) k/uL Lymphocytes # (1.0-4.8) k/uL D-Dimer 7.38 H (<0.60) mg/L FEU Sodium 133 L (137-145) mmol/L Creatinine 0.48 L (0.66-1.25) mg/dL Glucose 121 H (74-99) mg/dL POC Glucose (mg/dL) (75-99) mg/dL ALT 203 H (4-49) U/L Lactate Dehydrogenase 686 H (313-618) U/L Total Protein 5.5 L (6.3-8.2) g/dL Albumin 3.1 L (3.5-5.0) g/dL Assessment and Plan Plan: 1 Acute hypoxemic respiratory failure, secondary to COVID 19 pneumonia/pneumonitis, requiring intubation and mechanical ventilation on 03/01/2021. The patient remains on and off on the ventilator dependent. This morning, the patient is off sedation. He was switched to a trach collar earlier this morning and currently is on a 50% FiO2. His chest x-ray shows smaller lung volumes and some elevation of the right hemidiaphragm. There is some limited infiltration bilaterally. For all findings are essentially stable and a tracheostomy tube is in a good location. The patient is awake and alert and is following simple commands and moving all 4 extremities without any limitation. He is profoundly weak. The patient remains on Decadron. 2 Failure to progress on mechanical ventilation, tracheostomy tube placement and PEG tube placed on 03/10/2021. 3 Acute ileus, requiring decompression with nasogastric tube, resolved and the patient is having regular bowel movements 4 Methicillin sensitive staph aureus and Moraxella catarrhalis tracheobronchitis/bronchopneumonia, treated with Unasyn. Currently on no antibiotics 5 Morbid obesity. 6 Possible sleep apnea syndrome. 7 Lymphopenia, secondary to above 8 Elevated liver function tests, secondary to coronavirus infection, recovered 9 Hyponatremia, resolved. Plan: Keep the patient off sedation We'll stop the Decadron 6 mg every 24 hours Chest x-ray findings are stable Keep the patient on a trach collar with 50% FiO2 Aggressive physical therapy Anticoagulation with Lovenox at a dose of 60 mg subcu every 12 hours Enteral feeding for nutritional support Currently off Cleviprex We'll continue to follow. May transfer to select specialty for further rehabilitation. Critically care evaluation, more than 30 minutes Time with Patient: Greater than 30
[2021-03-13] MEDS ORDERED: DEXAMETHASONE SOD PHOSPHATE 10 MG/ML 1 ML VIAL IV SCH (09:00)
[2021-03-13 09:26] LABS: Ferritin 1066.7 ng/mL (22.0-322.0)
[2021-03-13] MEDS: CHLORHEXIDINE GLUCONATE 15 ML CUP MUCOUS MEM SCH ×2 (09:53→21:05)
[2021-03-13] MEDS: PANTOPRAZOLE 40 MG/10 ML VIAL IV SCH (09:54)
[2021-03-13] MEDS: ENOXAPARIN 60 MG/0.6 ML SYRINGE SQ SCH ×2 (09:54→21:05)
[2021-03-13] MEDS: bisacodyL 10 MG SUPP RECTAL SCH (09:54)
--- NOTE | 2021-03-13 10:11 | XR ---
EXAMINATION TYPE: XR chest 1V portable DATE OF EXAM: 03/13/2021 CLINICAL HISTORY: covid. TECHNIQUE: Portable frontal view of the chest. COMPARISON: 03/12/2021 FINDINGS: Tracheostomy tube. Low lung volumes accentuates the lung markings. Mild to moderate diffus e bilateral opacities with small right pleural effusion. There is mildly improved aeration of the rig ht lung base. The cardiomediastinal silhouette is within normal limits for size. No pneumothorax. IMPRESSION: Mildly improved aeration at the right lung base.
--- NOTE | 2021-03-13 12:14 | P.PN ---
<Virginia Virk - Last Filed: 03/13/21 12:11> Subjective Progress Note Date: 03/13/21 CHIEF COMPLAINT: Covid pneumonia HISTORY OF PRESENT ILLNESS: he patient is a 35 year old male with Covid pneumonia status post trach and PEG. The patient remains in the ICU ventilated. He is awake and off sedation. He is tolerating tube feeds. His last bowel movement was on 03/10/2021. Afebrile. WBC 1.9 hemoglobin 12 point PHYSICAL EXAM: VITAL SIGNS: Reviewed. GENERAL: Well-developed in no acute distress. HEENT: No sclera icterus. Extraocular movements grossly intact. Moist buccal mucosa. Head is atraumatic, normocephalic. Trach aspirate site clean dry and intact ABDOMEN: Soft. Nondistended nontender. PEG tube site clean dry and intact NEUROLOGIC: Intubated ASSESSMENT: 1. Acute hypoxic respiratory failure secondary to COVID-19 pneumonia with prolonged mechanical ventilation status post tracheostomy placement 2. Severe protein calorie malnutrition status post PEG tube placement 3. Ileus resolved PLAN: -Continue ICU management -Continue supportive care -Continue tube feed Physician Child Specialist note has been reviewed by physician. Signing provider agrees with the documented findings, assessment, and plan of care. Objective - Vital Signs Vital signs: Vital Signs Temp 98.4 F 03/13/21 00:00 Pulse 63 03/13/21 07:00 Resp 62 H 03/13/21 07:00 BP 122/61 03/13/21 07:00 Pulse Ox 94 L 03/13/21 07:00 Intake & Output 03/12/21 03/13/21 03/13/21 18:59 06:59 18:59 Intake Total 777.307 642 46 Output Total 1015 1110 100 Balance -237.693 -468 -54 Weight 130.2 kg Intake: IV 143 156 13 A line Flush 33 36 3 Sodium Chloride 0.9% 1, 110 120 10 000 ml @ 10 mls/hr IV . Q24H [facility] Rx#:[id number] Intake, IV Titration 214.307 Amount fentaNYL (PF). 1,000 mcg 140.292 In Sodium Chloride 0.9% 80 ml @ Per Protocol IV . Q0M [facility]I Rx#:[id number] propofoL 1,000 mg In 74.015 Empty Bag 1 bag @ Titrate IV .Q0M TERI Rx#: [id number] Tube Feeding 330 396 33 Other 90 90 Output: Urine 1015 1110 100 Other: Voiding Method Indwelling Catheter Indwelling Catheter ABP, PAP, CO, CI - Last Documented Arterial Blood Pressure 104/53 - Labs CBC & Chem 7: 03/13/21 03:50 03/13/21 03:50 Labs: Abnormal Lab Results - Last 24 Hours (Table) 03/12/21 03/13/21 03/13/21 Range/Units 18:01 03:50 03:50 WBC 11.9 H (3.8-10.6) k/uL RBC 3.94 L (4.30-5.90) m/uL Hgb 12.1 L (13.0-17.5) gm/dL Hct 35.0 L (39.0-53.0) % Neutrophils # 10.7 H (1.3-7.7) k/uL Lymphocytes # 0.7 L (1.0-4.8) k/uL D-Dimer (<0.60) mg/L FEU Sodium 133 L (137-145) mmol/L Creatinine 0.48 L (0.66-1.25) mg/dL Glucose 121 H (74-99) mg/dL POC Glucose (mg/dL) 105 H (75-99) mg/dL Ferritin 1066.7 H (22.0-322.0) ng/mL ALT 203 H (4-49) U/L Lactate Dehydrogenase 686 H (313-618) U/L Total Protein 5.5 L (6.3-8.2) g/dL Albumin 3.1 L (3.5-5.0) g/dL 03/13/21 Range/Units 03:50 WBC (3.8-10.6) k/uL RBC (4.30-5.90) m/uL Hgb (13.0-17.5) gm/dL Hct (39.0-53.0) % Neutrophils # (1.3-7.7) k/uL Lymphocytes # (1.0-4.8) k/uL D-Dimer 7.38 H (<0.60) mg/L FEU Sodium (137-145) mmol/L Creatinine (0.66-1.25) mg/dL Glucose (74-99) mg/dL POC Glucose (mg/dL) (75-99) mg/dL Ferritin (22.0-322.0) ng/mL ALT (4-49) U/L Lactate Dehydrogenase (313-618) U/L Total Protein (6.3-8.2) g/dL Albumin (3.5-5.0) g/dL <Rk Vargas - Last Filed: 03/13/21 13:34> Subjective As above. Patient doing well today. He is alert and tolerating tube feeds. He is on trach collar. PEG tube loosened slightly. Objective - Vital Signs Vital signs: Vital Signs Temp 98.4 F 03/13/21 00:00 Pulse 63 03/13/21 07:00 Resp 62 H 03/13/21 07:00 BP 122/61 03/13/21 07:00 Pulse Ox 94 L 03/13/21 07:00 Intake & Output 03/12/21 03/13/21 03/13/21 18:59 06:59 18:59 Intake Total 777.307 642 46 Output Total 1015 1110 100 Balance -237.693 -468 -54 Weight 130.2 kg Intake: IV 143 156 13 A line Flush 33 36 3 Sodium Chloride 0.9% 1, 110 120 10 000 ml @ 10 mls/hr IV . Q24H [facility]I Rx#:[id number] Intake, IV Titration 214.307 Amount fentaNYL (PF). 1,000 mcg 140.292 In Sodium Chloride 0.9% 80 ml @ Per Protocol IV . Q0M [facility] Rx#:[id number] propofoL 1,000 mg In 74.015 Empty Bag 1 bag @ Titrate IV .Q0M TERI Rx#: [id number] Tube Feeding 330 396 33 Other 90 90 Output: Urine 1015 1110 100 Other: Voiding Method Indwelling Catheter Indwelling Catheter ABP, PAP, CO, CI - Last Documented Arterial Blood Pressure 104/53 - Labs CBC & Chem 7: 03/13/21 03:50 03/13/21 03:50 Labs: Abnormal Lab Results - Last 24 Hours (Table) 03/12/21 03/13/21 03/13/21 Range/Units 18:01 03:50 03:50 WBC 11.9 H (3.8-10.6) k/uL RBC 3.94 L (4.30-5.90) m/uL Hgb 12.1 L (13.0-17.5) gm/dL Hct 35.0 L (39.0-53.0) % Neutrophils # 10.7 H (1.3-7.7) k/uL Lymphocytes # 0.7 L (1.0-4.8) k/uL D-Dimer (<0.60) mg/L FEU Sodium 133 L (137-145) mmol/L Creatinine 0.48 L (0.66-1.25) mg/dL Glucose 121 H (74-99) mg/dL POC Glucose (mg/dL) 105 H (75-99) mg/dL Ferritin 1066.7 H (22.0-322.0) ng/mL ALT 203 H (4-49) U/L Lactate Dehydrogenase 686 H (313-618) U/L Total Protein 5.5 L (6.3-8.2) g/dL Albumin 3.1 L (3.5-5.0) g/dL 03/13/21 Range/Units 03:50 WBC (3.8-10.6) k/uL RBC (4.30-5.90) m/uL Hgb (13.0-17.5) gm/dL Hct (39.0-53.0) % Neutrophils # (1.3-7.7) k/uL Lymphocytes # (1.0-4.8) k/uL D-Dimer 7.38 H (<0.60) mg/L FEU Sodium (137-145) mmol/L Creatinine (0.66-1.25) mg/dL Glucose (74-99) mg/dL POC Glucose (mg/dL) (75-99) mg/dL Ferritin (22.0-322.0) ng/mL ALT (4-49) U/L Lactate Dehydrogenase (313-618) U/L Total Protein (6.3-8.2) g/dL Albumin (3.5-5.0) g/dL Assessment and Plan (1) Ileus Current Visit: Yes Status: Acute Code(s): K56.7 - ILEUS, UNSPECIFIED SNOMED Code(s): 582081095
[2021-03-13 17:48] LABS: Glucose,Whole Blood 107 mg/dL (75-99)
[2021-03-13] MEDS: CLEVIDIPINE BUTYRATE 25 MG in EMPTY BAG 1 BAG IV SCH (19:12)
--- NOTE | 2021-03-13 19:13 | P.PN ---
Subjective Progress Note Date: 03/13/21 Osmar Drummond, is a 35-year-old male patient of Dr. Hdz, who presented to [facility] emergency room with a chief complaint of worsening shortness of breath and chest tightness. Patient was also having persistent cough his symptoms started 12 days ago however he had severe worsening of his symptoms in the last 3 days. He stated that last Saturday he was tested for COVID-19, results came back positive on Saturday. He was evaluated in the emergency room vital examination on presentation revealed a temperature of 103 pulse 92 respiration 18 blood pressure 124/77 pulse ox 92% on room air. White blood count was 4.2 hemoglobin 15.4 platelet count 161 sodium 125 potassium 3.9 chloride 88 calcium 7.8 BUN 8 creatinine 0.94 AST 98 ALT 57 LDH 1623 C-reactive protein 41.1 EKG done in the emergency room revealed normal sinus rhythm normal EKG, chest x-ray done in the emergency room revealed patchy bilateral infiltrates compatible with multifocal pneumonia no pneumothorax. Patient was admitted to medical floor pulmonary consultation was requested. On 02/25/2021 patient was seen and examined on the medical floor he is alert and oriented 3 in no distress, he is still complaining of cough and shortness of breath otherwise he denies any complaints there is no fever or chills no hea dache or dizziness no chest pain no nausea or vomiting no abdominal pain no diarrhea no blood in the stools no burning was urination no frequency or urgency and no hematuria. On 02/26/2021 patient was seen and examined on the medical floor he is alert and oriented 3 in no distress he seems to be worse today he is having more tachycardia and tachypnea, his temperature is 99.8 pulse ox is down to 82% on 15 L high flow cannula inflammatory markers are up his LDH is 1735 up from 1440 yesterday C-reactive protein is up to 7.2 up from 6 yesterday d-dimer is up to 1.21 up from 0.77 yesterday, at this time patient is maintained on inhaled bronchodilators, IV Decadron, subcu Lovenox,, repeat chest x-ray done today reveals by basilar infiltrates and opacities consistent with COVID-19 infection without any significant change from previous x-ray on 02/27/2021 patient was seen and examined on the medical floor, he is alert and oriented 3 in no apparent distress he is reporting some improvement in his shortness of breath, vital exam reveals a temperature of 99.1 pulse 102 respiration 20 blood pressure 121/84 pulse ox 87% on 15 L high flow cannula, white blood count is 6.2 hemoglobin 13.8 platelet count 262 d-dimer 1.51 sodium 127 potassium 4.0 chloride 94 CO2 25 BUN 13 creatinine 0.81 LDH 1969 C-reactive protein up to 8.9, patient is complaining of cough and shortness of breath otherwise he denies any complaints there is no fever or chills no headache or dizziness no chest pain no nausea or vomiting no abdominal pain no diarrhea no blood in the stools no burning with urination no frequency or urgency and no hematuria On 02/28/2021 patient was seen and examined on the medical floor he is alert and oriented 3 in no apparent distress, he is still maintained on Airvo with FiO2 of 90% his temperature is 98.7 pulse 116 respiration 28 blood pressure 145/81 pulse ox 93% he is complaining of shortness of breath and occasional cough otherwise he denies any complaints there is no fever or chills no headache or dizziness no chest pain no nausea or vomiting no abdominal pain no diarrhea no blood in the stools no burning with urination no frequency or urgency and no hematuria. On 03/01/2021 patient was seen and examined in the ICU he is intubated sedated maintained on mechanical ventilation air this morning patient was having worsening shortness of breath and decreased O2 sat duration despite Airvo, he was transferred to ICU and was intubated. Currently patient is on assist c ontrol tidal volume of 400 rate of 30 FiO2 100% and PEEP of 10 arterial blood gas reveals a pH of 7.24 pCO2 55 PO2 78 sodium is 127 LDH 2034 C-reactive protein 4.5 pulmonary are following closely On 03/02/2021 patient was seen and examined in the ICU he is intubated sedated maintained on mechanical ventilation air this morning patient was having worsening shortness of breath and decreased O2 sat duration despite Airvo, he was transferred to ICU and was intubated. Currently patient is on assist control tidal volume of 400 rate of 30 FiO2 100% and PEEP of 10 arterial blood gas reveals a pH of 7.24 pCO2 55 PO2 78 sodium is 127 LDH 203 C-reactive protein 4.5 pulmonary are following closely. Patient has evidence of ileus, he is maintained on NG tube to suction, surgical consultation was requested. On 03/03/2021 patient was seen and examined in the ICU he is intubated sedated maintained on mechanical ventilation air this morning patient was having worsening shortness of breath and decreased O2 sat duration despite Airvo, he was transferred to ICU and was intubated. Currently patient is on assist control tidal volume of 420 rate of 30 FiO2 85 % and PEEP of 16 arterial blood gas reveals a pH of 7.39 pCO2 55 PO2 66 sodium is 134 LDH 2034 C-reactive protein 4.5 pulmonary are following closely. Patient has evidence of ileus, he is maintained on NG tube to suction, surgical consultation was requested. On 03/04/2021 patient was seen and examined in the ICU he is intubated sedated maintained on mechanical ventilation air this morning patient was having worsening shortness of breath and decreased O2 sat duration despite Airvo, he was transferred to ICU and was intubated. Currently patient is on assist control tidal volume of 420 rate of 30 FiO2 85 % and PEEP of 16 arterial blood gas reveals a pH of 7.41 pCO2 53 PO2 89 sodium is 136 D-Dimer 2.0 pulmonary are following closely.\\ On 03/05/2021 patient was seen and examined in the ICU he is intubated sedated maintained on mechanical ventilation, patient is maintained on assist control tidal volume 42 rate of 30 FiO2 75% and PEEP at 16 arterial blood gas reveals a pH of 7.43 pCO2 48 and PO2 84 white blood count is 11.6 hemoglobin 11.3 platelet count 305 d-dimer 1.85 On 03/06/2021 patient was seen and examined in the ICU he is intubated sedated maintained on mechanical ventilation, patient is maintained on assist control tidal volume 420 rate of 30 FiO2 55% and PEEP at 12 arterial blood gas reveals a pH of 7.43 pCO2 49 and PO2 88 white blood count is 11.6 hemoglobin 11.9 platelet count 305 d-dimer 1.7 patient had a sedation holiday today he did well he was alert and following commands On 03/07/2021 patient was seen and examined in the ICU he is intubated sedated maintained on mechanical ventilation patient is maintained on assist control tidal volume 420 rate 32 FiO2 50% with a PEEP of 12 arterial blood gas reveals a pH of 7.44 pCO2 45 and PaO2 of 71 patient is having sedation holidays and is responding well at that time. On 03/08/2021, patient was seen and examined in the ICU he is intubated sedated maintained on mechanical ventilation, arterial blood gas Reveals a pH of 7.45 pCO2 44 PaO2 78 d-dimer 1.84, patient is maintained on assist control rate 32 tidal folium 420 FiO2 50% and a PEEP of 12 On 03/09/2021 patient was seen and examined in the ICU he is intubated sedated maintained on mechanical ventilation, he is scheduled for tracheostomy and PEG tube placement tomorrow, arterial blood gas reveals a pH of 7.4 to pCO2 48 PaO2 73 white blood count is 9.9 hemoglobin 11.6 platelet count 212 d-dimer is elevated at 3.4 On 03/10/2021, patient was seen and examined in the ICU he is intubated sedated maintained on mechanical ventilation, arterial blood gas Reveals a pH of 7.45 pCO2 44 PaO2 78 d-dimer 1.84, patient is maintained on assist control rate 32 tidal folium 420 FiO2 50% and a PEEP of 12 Patient is scheduled for tracheostomy and PEG tube placement today. On 03/11/2021 patient was seen and examined in the ICU he is intubated, sedated and maintained on mechanical ventilation, he underwent racheostomy and PEG tube placement yesterday, his vent setting patient is maintained on assist control rate of 32 tidal volume 420 FiO2 50% and PEEP of 10 ABG reveals pH 7.46 pCO2 41 PaO2 81 liver enzymes are slightly elevated was AST at 78 ALT at 265 On 03/12/2021 patient was seen and examined in the ICU he is intubated through tracheostom, he is alert responsive trying to answer questions, he is maintained on BiPAP, there is no fever or chills no headache or dizziness no chest pain no shortness of breath no palpitation no cough no nausea or vomiting no abdominal pain no diarrhea no blood in the stools no burning with urination no frequency or urgency and no hematuria, patient is improving gradually. On 03/13/2021 patient was seen and examined in the ICU he is intubated through tracheostomy, he is alert responsive. He is maintained on BiPAP, there is no fever or chills no headache or dizziness no chest pain no shortness of breath no palpitation no cough no nausea or vomiting no abdominal pain no diarrhea no blood in the stools no burning with urination no frequency or urgency and no hematuria, patient is improving gradually. He remains on Decadron 6 mg IV every 12 hours, and SQ Lovenox Objective - Vital Signs Vital signs: Vital Signs Temp 98.9 F 03/13/21 12:00 Pulse 64 03/13/21 18:00 Resp 26 H 03/13/21 18:00 BP 116/64 03/13/21 18:00 Pulse Ox 94 L 03/13/21 18:00 Intake & Output 03/13/21 03/13/21 03/14/21 06:59 18:59 06:59 Intake Total 642 79 Output Total 1110 1920 Balance -468 -1841 Weight 130.2 kg Intake: IV 156 46 A line Flush 36 36 Sodium Chloride 0.9% 1, 120 10 000 ml @ 10 mls/hr IV . Q24H [facility] Rx#:[id number] Tube Feeding 396 33 Other 90 Output: Urine 1110 1920 Other: Voiding Method Indwelling Catheter Indwelling Catheter ABP, PAP, CO, CI - Last Documented Arterial Blood Pressure 110/55 - Exam In general patient is intubated through tracheostomy, he is alert off sedation HEENT head normocephalic and atraumatic Neck is supple no JVD no goiter no lymphadenopathy Chest exam reveals a few scattered crackles no wheezing Cardiac exam reveals regular heart sounds no gallops no murmurs Abdomen is soft nontender no organomegaly with normal bowel sounds Extremity exam reveals no edema no cyanosis or clubbing Neurological examination reveals no gross focal deficit - Labs CBC & Chem 7: 03/13/21 03:50 03/13/21 03:50 Labs: Abnormal Lab Results - Last 24 Hours (Table) 03/13/21 03/13/21 03/13/21 Range/Units 03:50 03:50 03:50 WBC 11.9 H (3.8-10.6) k/uL RBC 3.94 L (4.30-5.90) m/uL Hgb 12.1 L (13.0-17.5) gm/dL Hct 35.0 L (39.0-53.0) % Neutrophils # 10.7 H (1.3-7.7) k/uL Lymphocytes # 0.7 L (1.0-4.8) k/uL D-Dimer 7.38 H (<0.60) mg/L FEU Sodium 133 L (137-145) mmol/L Creatinine 0.48 L (0.66-1.25) mg/dL Glucose 121 H (74-99) mg/dL POC Glucose (mg/dL) (75-99) mg/dL Ferritin 1066.7 H (22.0-322.0) ng/mL ALT 203 H (4-49) U/L Lactate Dehydrogenase 686 H (313-618) U/L Total Protein 5.5 L (6.3-8.2) g/dL Albumin 3.1 L (3.5-5.0) g/dL 03/13/21 Range/Units 17:47 WBC (3.8-10.6) k/uL RBC (4.30-5.90) m/uL Hgb (13.0-17.5) gm/dL Hct (39.0-53.0) % Neutrophils # (1.3-7.7) k/uL Lymphocytes # (1.0-4.8) k/uL D-Dimer (<0.60) mg/L FEU Sodium (137-145) mmol/L Creatinine (0.66-1.25) mg/dL Glucose (74-99) mg/dL POC Glucose (mg/dL) 107 H (75-99) mg/dL Ferritin (22.0-322.0) ng/mL ALT (4-49) U/L Lactate Dehydrogenase (313-618) U/L Total Protein (6.3-8.2) g/dL Albumin (3.5-5.0) g/dL Assessment and Plan Plan: 1. Acute COVID-19 pneumonia patient started on IV Decadron and subcu Lovenox pulmonary consultation was requested, patient developed acute hypoxic respiratory failure requiring intubation and mechanical ventilation 2. Underlying history of asthma 3. Underlying history of morbid obesity 4. Hyponatremia, patient started on IV normal months leading 5. Elevated liver enzymes, will monitor closely 6. Evidence of ileus patient is maintained on NG tube to suction, surgical consultation following At this time patient was seen and examined in the emergency room he was started on subcu Lovenox and IV dexamethasone, vitamin C and vitamin D and zinc supplements he was also started on inhaled bronchodilators patient will be admitted to medical floor pulmonary consultation was requested. Patient was seen by pulmonary he is maintained on oxygen supplements, IV Decadron, subcu Lovenox, patient has improved since yesterday
[2021-03-13] MEDS: SODIUM CHLORIDE 0.9% 1,000 ML IV SCH (21:05)
[2021-03-13] MEDS: fentaNYL (PF). 1,000 MCG in SODIUM CHLORIDE 0.9% 80 ML IV SCH (21:22)
[2021-03-14] MEDS: METOCLOPRAMIDE 5 MG/ML 2 ML VIAL IVP SCH ×4 (00:36→18:03)
[2021-03-14 00:52] LABS: Glucose,Whole Blood 84 mg/dL (75-99)
[2021-03-14 05:26] LABS: HCT 39.7 % (39.0-53.0); HGB 13.4 gm/dL (13.0-17.5); MCH 30.4 pg (25.0-35.0); MCHC 33.8 g/dL (31.0-37.0); MCV 89.8 fL (80.0-100.0); Mean Platelet Volume 9.2; Platelet Count 198 k/uL (150-450); RBC 4.42 m/uL (4.30-5.90); RDW 15.1 % (11.5-15.5); WBC 15.2 k/uL (3.8-10.6)
[2021-03-14 05:53] LABS: ALT 194 U/L (4-49); AST 64 U/L (17-59); African American GFR (CKD) >90 (>60 ml/min/1.73 sqM); Albumin 3.5 g/dL (3.5-5.0); Alkaline Phosphatase 58 U/L (38-126); Anion Gap 7 mmol/L; Blood Urea Nitrogen 18 mg/dL (9-20); C Reactive Protein 0.7 mg/dL (<1.0); Calcium 8.9 mg/dL (8.4-10.2); Carbon Dioxide 28 mmol/L (22-30); Chloride 103 mmol/L (98-107); Glucose 75 mg/dL (74-99); LDH 1059 U/L (313-618); Non-African American GFR(CKD) >90 (>60 ml/min/1.73 sqM); Potassium 3.7 mmol/L (3.5-5.1); Sodium 138 mmol/L (137-145); Total Bilirubin 1.3 mg/dL (0.2-1.3); Total Protein 5.9 g/dL (6.3-8.2)
[2021-03-14] MEDS ORDERED: Potassium Replacement Protocol 1 EACH MISC MISCELLANE PRN (05:58)
[2021-03-14] MEDS ORDERED: POTASSIUM BICARBONATE/CIT AC 20 MEQ TABLET.EFF NG-TUBE SCH (06:00)
--- NOTE | 2021-03-14 06:45 | P.PN ---
Subjective Progress Note Date: 03/14/21 On , I'm seeing this patient for a follow-up. This is a 35-year-old male patient was in the intensive care unit for respiratory failure due to COVID-19 related pneumonia. The patient intubated and mechanically ventilated on 03/01/2021 and subsequently the patient failed to wean and failed to recover and the patient required tracheostomy tube insertion and a PEG tube insertion for long-term ventilator care and enteral feeding for nutritional support and this was done on 03/10/2021. The patient is currently off sedation and his been off sedation for the past 24 hours. This morning, the patient patient is on a trach shield at 50% FiO2. He is calm and comfortable. He was taken off th e mechanical ventilator 3 am and his been off the mechanical ventilator since. During the course of the treatment, the patient was also cultured to have MSSA and Moraxella catarrhalis in his sputum. He was treated with antibiotics and currently is off antibiotics. Patient is hemodynamically stable on no pressors. He requires Cleviprex on and off for blood pressure control. He is receiving enteral feeding for dentures support with vital high protein at the rate of 33 mL an hour. Chest x-ray still showing diffuse but the pulmonary infiltrates. Inflammatory markers including LDH from is 686 with a CRP of 0.6. His d-dimer level was is still elevated 7.38 the patient was receiving Lovenox 60 mg subcu every 12 hours. Patient otherwise is tolerating enteral feeding for dentures support. The patient has been afebrile and hemodynamically stable. He remains on Decadron 6 mg IV every 12 hours. He is also on Lovenox for deep prophylaxis. Afebrile.Chest x-ray still showing diffuse bilateral interstitial infiltrates most on the right lower lobe and the patient has a PICC line in left upper extremity. Tracheostomy tube is in a good location. 03/14/2021, the patient is being seen for a follow-up. The patient spent the entire day yesterday trach collar at 50%. Overnight, the patient started having some increased oral and orotracheal secretions that were bloody. He was also desaturating. He was placed on 100% trach collar and following that he was placed back on a mechanical ventilator on his previous ventilator settings and he stayed on the assist control mode of the night. This morning, he was switched back to a trach collar at 50%. His current pulse ox is 90%. His chest x-ray showing that the tip of the tracheostomy tube was very high in the trachea and that she possibly may need to be repositioned and pushed in. He is awake and alert. He is off the mechanical ventilator for now. Chest x-ray still showing bilateral pulmonary infiltrates, essentially unchanged compared to yesterday. In terms of his treatment, the patient remains on Decadron 6 mg IV every 24 hours. Inflammatory markers from today of 9.29, LDH level of 1059 and a CRP level of 0.7. His white cell count is at 15.2 and hemoglobin of 13.4. Rest of the electrodes are all within normal limits. He remains on Lovenox for DVT prophylaxis. He is also receiving enteral feeding was nutritional support. The patient is receiving vital high protein at the rate of 33 mL an hour. Note that overnight, he had also to be placed on a low-dose fentanyl which unwilling to discontinue today. He is currently running at 3 mcg/kg per minute of fentanyl drip. He has a PEG tube in place. No abdominal distention. Regular bowel movements. Objective - Vital Signs Vital signs: Vital Signs Temp 98.0 F 03/14/21 04:00 Pulse 69 03/14/21 05:00 Resp 32 H 03/14/21 05:00 BP 124/64 03/14/21 05:00 Pulse Ox 92 L 03/14/21 05:00 Intake & Output 03/13/21 03/13/21 03/14/21 06:59 18:59 06:59 Intake Total 642 179 575.512 Output Total 1110 1920 1510 Balance -468 -1741 -934.488 Weight 130.2 kg 112.1 kg Intake: IV 156 46 127 A line Flush 36 36 27 Sodium Chloride 0.9% 1, 120 10 100 000 ml @ 10 mls/hr IV . Q24H [facility] Rx#:[id number] Intake, IV Titration 100 28.512 Amount fentaNYL (PF). 1,000 mcg 100 28.512 In Sodium Chloride 0.9% 80 ml @ Per Protocol IV . Q0M [facility] Rx#:[id number] Tube Feeding 396 33 330 Other 90 90 Output: Urine 1110 1920 1510 Other: Voiding Method Indwelling Catheter Indwelling Catheter Indwelling Catheter ABP, PAP, CO, CI - Last Documented Arterial Blood Pressure 102/72 - Exam GENERAL EXAM: Sedated, 35-year-old gentleman, on mechanical ventilator, comfortable in no apparent distress. Tracheostomy tube is in place, and the patient has a Shiley #[address] HEAD: Normocephalic. EYES: Normal reaction of pupils, equal size. NOSE: Clear with pink turbinates. THROAT: No erythema or exudates. NECK: Tracheostomy tube secured in place. No masses, no JVD. CHEST: No chest wall deformity. LUNGS: Equal air entry with bilateral coarse crackles. CVS: S1 and S2 normal with no audible murmur, regular rhythm. ABDOMEN: PEG tube exit site clean and dry. No hepatosplenomegaly, normal bowel sounds, no guarding or rigidity. SPINE: No scoliosis or deformity SKIN: No rashes CENTRAL NERVOUS SYSTEM: Awake and alert and responsive EXTREMITIES: There is no peripheral edema. No clubbing, no cyanosis. Peripheral pulses are intact. - Labs CBC & Chem 7: 03/14/21 04:32 03/14/21 04:32 Labs: Abnormal Lab Results - Last 24 Hours (Table) 03/13/21 03/13/21 03/14/21 Range/Units 03:50 17:47 04:32 WBC (3.8-10.6) k/uL D-Dimer (<0.60) mg/L FEU POC Glucose (mg/dL) 107 H (75-99) mg/dL Ferritin 1066.7 H (22.0-322.0) ng/mL AST 64 H (17-59) U/L ALT 194 H (4-49) U/L Lactate Dehydrogenase 1059 H (313-618) U/L Total Protein 5.9 L (6.3-8.2) g/dL 03/14/21 03/14/21 Range/Units 04:32 04:32 WBC 15.2 H (3.8-10.6) k/uL D-Dimer 9.29 H (<0.60) mg/L FEU POC Glucose (mg/dL) (75-99) mg/dL Ferritin (22.0-322.0) ng/mL AST (17-59) U/L ALT (4-49) U/L Lactate Dehydrogenase (313-618) U/L Total Protein (6.3-8.2) g/dL Assessment and Plan Plan: 1 Acute hypoxemic respiratory failure, secondary to COVID 19 pneumon ia/pneumonitis, requiring intubation and mechanical ventilation on 03/01/2021. The patient remains on and off on the ventilator dependent. This morning, the patient is off sedation. He was switched to a trach collar earlier this morning and currently is on a 60% FiO2. His chest x-ray shows smaller lung volumes and some elevation of the right hemidiaphragm. There is some limited infiltration b ilaterally. On today's chest x-ray, the positioning of the tracheostomy tube is high in the trachea. Nevertheless, on inspection, tracheostomy tube is in good location at this point in time the breast on that equal and bilateral. The patient has scattered rhonchi. The cuff was the plated. Sputum samples will be sent for culture. After going on assist control mode of ventilation overnight, the patient was switched back to trach collar at 60% FiO2. . 2 Failure to progress on mechanical ventilation, tracheostomy tube placement and PEG tube placed on 03/10/2021. 3 Acute ileus, requiring decompression with nasogastric tube, resolved and the patient is having regular bowel movements 4 Methicillin sensitive staph aureus and Moraxella catarrhalis tracheobronchitis/bronchopneumonia, treated with Unasyn. Currently on no antibiotics 5 Morbid obesity. 6 Possible sleep apnea syndrome. 7 Lymphopenia, secondary to above 8 Elevated liver function tests, secondary to coronavirus infection, recovered 9 Hyponatremia, resolved. Plan: Keep the patient off sedation must stop fentanyl Continue Decadron and drop the dose down to 4 mg every 24 hours Arterial line has been discontinued Chest x-ray findings are stable, tracheostomy tube positioning was noted. The patient has a Shiley tracheostomy tube #8. Keep the patient on a trach collar with 60% FiO2 Check sputum Gram stain and culture Aggressive physical therapy Anticoagulation with Lovenox at a dose of 60 mg subcu every 12 hours, d-dimer continues to be quite elevated Enteral feeding for nutritional support We'll continue to follow. May transfer to select specialty for further rehabilitation. Critically care evaluation, more than 30 minutes Time with Patient: Greater than 30
[2021-03-14] MEDS: ALBUTEROL HFA INHALER INHALATION SCH ×4 (07:06→19:14)
--- NOTE | 2021-03-14 08:10 | XR ---
EXAMINATION TYPE: XR chest 1V portable DATE OF EXAM: 03/14/2021 COMPARISON: 03/13/2021 INDICATION: Covid TECHNIQUE: Single frontal view of the chest is obtained. FINDINGS: The heart size is normal. The pulmonary vasculature is normal. Patchy infiltrates are present bilaterally. PICC line in the left tip in the distal superior vena cava region. IMPRESSION: 1. Worsening patchy bilateral lung infiltrates. 2. Lines and catheters discussed above.
[2021-03-14] MEDS: bisacodyL 10 MG SUPP RECTAL SCH (09:27)
[2021-03-14] MEDS: DEXAMETHASONE SOD PHOSPHATE 4 MG/ML 1 ML VIAL IV SCH (09:29)
[2021-03-14] MEDS: ENOXAPARIN 60 MG/0.6 ML SYRINGE SQ SCH ×2 (09:29→20:50)
[2021-03-14] MEDS: CHLORHEXIDINE GLUCONATE 15 ML CUP MUCOUS MEM SCH ×2 (09:29→20:50)
[2021-03-14] MEDS: PANTOPRAZOLE 40 MG/10 ML VIAL IV SCH (09:29)
[2021-03-14 10:05] LABS: Ferritin 1277.7 ng/mL (22.0-322.0)
[2021-03-14] MEDS ORDERED: DEXMEDETOMIDINE/0.9% NACL(PMX) 400 MCG in EMPTY BAG 1 BAG IV SCH (10:15)
[2021-03-14 12:00] LABS: Glucose,Whole Blood 108 mg/dL (75-99)
--- NOTE | 2021-03-14 12:53 | P.PN ---
Subjective Progress Note Date: 03/14/21 Principal diagnosis: Ileus Patient was on trach collar again this morning but got tired out. He is back on the ventilator now. Today's chest x-ray was reviewed and does show that the tracheostomy tube looked to be pulled back somewhat. Per respiratory there having no issues with that however. Objective - Vital Signs Vital signs: Vital Signs Temp 98.8 F 03/14/21 08:00 Pulse 82 03/14/21 10:00 Resp 14 03/14/21 10:00 BP 92/75 03/14/21 10:00 Pulse Ox 93 L 03/14/21 10:00 Intake & Output 03/13/21 03/14/21 03/14/21 18:59 06:59 18:59 Intake Total 179 618.512 114.488 Output Total 1920 1610 175 Balance -1741 -991.488 -60.512 Weight 112.1 kg 112.1 kg Intake: IV 46 137 10 A line Flush 36 27 Sodium Chloride 0.9% 1, 10 110 10 000 ml @ 10 mls/hr IV . Q24H [facility] Rx#:[id number] Intake, IV Titration 100 28.512 71.488 Amount fentaNYL (PF). 1,000 mcg 100 28.512 71.488 In Sodium Chloride 0.9% 80 ml @ Per Protocol IV . Q0M [facility] Rx#:[id number] Tube Feeding 33 363 33 Other 90 Output: Urine 0 1610 175 Other: Voiding Method Indwelling Catheter Indwelling Catheter Indwelling Catheter ABP, PAP, CO, CI - Last Documented Arterial Blood Pressure 102/72 - Exam Trach site clean, trach appears to be in place and not withdrawn at all Abdomen soft nontender nondistended PEG tube in place - Labs CBC & Chem 7: 03/14/21 04:32 03/14/21 04:32 Labs: Abnormal Lab Results - Last 24 Hours (Table) 03/13/21 03/14/21 03/14/21 Range/Units 17:47 04:32 04:32 WBC 15.2 H (3.8-10.6) k/uL D-Dimer (<0.60) mg/L FEU POC Glucose (mg/dL) 107 H (75-99) mg/dL Ferritin 1277.7 H (22.0-322.0) ng/mL AST 64 H (17-59) U/L ALT 194 H (4-49) U/L Lactate Dehydrogenase 1059 H (313-618) U/L Total Protein 5.9 L (6.3-8.2) g/dL 03/14/21 03/14/21 Range/Units 04:32 11:58 WBC (3.8-10.6) k/uL D-Dimer 9.29 H (<0.60) mg/L FEU POC Glucose (mg/dL) 108 H (75-99) mg/dL Ferritin (22.0-322.0) ng/mL AST (17-59) U/L ALT (4-49) U/L Lactate Dehydrogenase (313-618) U/L Total Protein (6.3-8.2) g/dL Assessment and Plan (1) Ileus Narrative/Plan: Patient doing fairly well. Tracheostomy looks to be appropriately positioned on exam. Continue tube feeds at goal. We'll follow. Current Visit: Yes Status: Acute Code(s): K56.7 - ILEUS, UNSPECIFIED SNOMED Code(s): 474640069
[2021-03-14] MEDS: CLEVIDIPINE BUTYRATE 25 MG in EMPTY BAG 1 BAG IV SCH (13:48)
[2021-03-14] MEDS: HYDROmorphone 1 MG/ML 1 ML SYRINGE IVP PRN ×2 (14:07→20:51)
--- NOTE | 2021-03-14 17:23 | P.PN ---
Subjective Progress Note Date: 03/14/21 Osmar Drummond, is a 35-year-old male patient of Dr. Hdz, who presented to [facility] emergency room with a chief complaint of worsening shortness of breath and chest tightness. Patient was also having persistent cough his symptoms started 12 days ago however he had severe worsening of his symptoms in the last 3 days. He stated that last Saturday he was tested for COVID-19, results came back positive on Saturday. He was evaluated in the emergency room vital examination on presentation revealed a temperature of 103 pulse 92 respiration 18 blood pressure 124/77 pulse ox 92% on room air. White blood count was 4.2 hemoglobin 15.4 platelet count 161 sodium 125 potassium 3.9 chloride 88 calcium 7.8 BUN 8 creatinine 0.94 AST 98 ALT 57 LDH 1623 C-reactive protein 41.1 EKG done in the emergency room revealed normal sinus rhythm normal EKG, chest x-ray done in the emergency room revealed patchy bilateral infiltrates compatible with multifocal pneumonia no pneumothorax. Patient was admitted to medical floor pulmonary consultation was requested. On 02/25/2021 patient was seen and examined on the medical floor he is alert and oriented 3 in no distress, he is still complaining of cough and shortness of breath otherwise he denies any complaints there is no fever or chills no hea dache or dizziness no chest pain no nausea or vomiting no abdominal pain no diarrhea no blood in the stools no burning was urination no frequency or urgency and no hematuria. On 02/26/2021 patient was seen and examined on the medical floor he is alert and oriented 3 in no distress he seems to be worse today he is having more tachycardia and tachypnea, his temperature is 99.8 pulse ox is down to 82% on 15 L high flow cannula inflammatory markers are up his LDH is 1735 up from 1440 yesterday C-reactive protein is up to 7.2 up from 6 yesterday d-dimer is up to 1.21 up from 0.77 yesterday, at this time patient is maintained on inhaled bronchodilators, IV Decadron, subcu Lovenox,, repeat chest x-ray done today reveals by basilar infiltrates and opacities consistent with COVID-19 infection without any significant change from previous x-ray on 02/27/2021 patient was seen and examined on the medical floor, he is alert and oriented 3 in no apparent distress he is reporting some improvement in his shortness of breath, vital exam reveals a temperature of 99.1 pulse 102 respiration 20 blood pressure 121/84 pulse ox 87% on 15 L high flow cannula, white blood count is 6.2 hemoglobin 13.8 platelet count 262 d-dimer 1.51 sodium 127 potassium 4.0 chloride 94 CO2 25 BUN 13 creatinine 0.81 LDH 1969 C-reactive protein up to 8.9, patient is complaining of cough and shortness of breath otherwise he denies any complaints there is no fever or chills no headache or dizziness no chest pain no nausea or vomiting no abdominal pain no diarrhea no blood in the stools no burning with urination no frequency or urgency and no hematuria On 02/28/2021 patient was seen and examined on the medical floor he is alert and oriented 3 in no apparent distress, he is still maintained on Airvo with FiO2 of 90% his temperature is 98.7 pulse 116 respiration 28 blood pressure 145/81 pulse ox 93% he is complaining of shortness of breath and occasional cough otherwise he denies any complaints there is no fever or chills no headache or dizziness no chest pain no nausea or vomiting no abdominal pain no diarrhea no blood in the stools no burning with urination no frequency or urgency and no hematuria. On 03/01/2021 patient was seen and examined in the ICU he is intubated sedated maintained on mechanical ventilation air this morning patient was having worsening shortness of breath and decreased O2 sat duration despite Airvo, he was transferred to ICU and was intubated. Currently patient is on assist c ontrol tidal volume of 400 rate of 30 FiO2 100% and PEEP of 10 arterial blood gas reveals a pH of 7.24 pCO2 55 PO2 78 sodium is 127 LDH 2034 C-reactive protein 4.5 pulmonary are following closely On 03/02/2021 patient was seen and examined in the ICU he is intubated sedated maintained on mechanical ventilation air this morning patient was having worsening shortness of breath and decreased O2 sat duration despite Airvo, he was transferred to ICU and was intubated. Currently patient is on assist control tidal volume of 400 rate of 30 FiO2 100% and PEEP of 10 arterial blood gas reveals a pH of 7.24 pCO2 55 PO2 78 sodium is 127 LDH 203 C-reactive protein 4.5 pulmonary are following closely. Patient has evidence of ileus, he is maintained on NG tube to suction, surgical consultation was requested. On 03/03/2021 patient was seen and examined in the ICU he is intubated sedated maintained on mechanical ventilation air this morning patient was having worsening shortness of breath and decreased O2 sat duration despite Airvo, he was transferred to ICU and was intubated. Currently patient is on assist control tidal volume of 420 rate of 30 FiO2 85 % and PEEP of 16 arterial blood gas reveals a pH of 7.39 pCO2 55 PO2 66 sodium is 134 LDH 2034 C-reactive protein 4.5 pulmonary are following closely. Patient has evidence of ileus, he is maintained on NG tube to suction, surgical consultation was requested. On 03/04/2021 patient was seen and examined in the ICU he is intubated sedated maintained on mechanical ventilation air this morning patient was having worsening shortness of breath and decreased O2 sat duration despite Airvo, he was transferred to ICU and was intubated. Currently patient is on assist control tidal volume of 420 rate of 30 FiO2 85 % and PEEP of 16 arterial blood gas reveals a pH of 7.41 pCO2 53 PO2 89 sodium is 136 D-Dimer 2.0 pulmonary are following closely.\\ On 03/05/2021 patient was seen and examined in the ICU he is intubated sedated maintained on mechanical ventilation, patient is maintained on assist control tidal volume 42 rate of 30 FiO2 75% and PEEP at 16 arterial blood gas reveals a pH of 7.43 pCO2 48 and PO2 84 white blood count is 11.6 hemoglobin 11.3 platelet count 305 d-dimer 1.85 On 03/06/2021 patient was seen and examined in the ICU he is intubated sedated maintained on mechanical ventilation, patient is maintained on assist control tidal volume 420 rate of 30 FiO2 55% and PEEP at 12 arterial blood gas reveals a pH of 7.43 pCO2 49 and PO2 88 white blood count is 11.6 hemoglobin 11.9 platelet count 305 d-dimer 1.7 patient had a sedation holiday today he did well he was alert and following commands On 03/07/2021 patient was seen and examined in the ICU he is intubated sedated maintained on mechanical ventilation patient is maintained on assist control tidal volume 420 rate 32 FiO2 50% with a PEEP of 12 arterial blood gas reveals a pH of 7.44 pCO2 45 and PaO2 of 71 patient is having sedation holidays and is responding well at that time. On 03/08/2021, patient was seen and examined in the ICU he is intubated sedated maintained on mechanical ventilation, arterial blood gas Reveals a pH of 7.45 pCO2 44 PaO2 78 d-dimer 1.84, patient is maintained on assist control rate 32 tidal folium 420 FiO2 50% and a PEEP of 12 On 03/09/2021 patient was seen and examined in the ICU he is intubated sedated maintained on mechanical ventilation, he is scheduled for tracheostomy and PEG tube placement tomorrow, arterial blood gas reveals a pH of 7.4 to pCO2 48 PaO2 73 white blood count is 9.9 hemoglobin 11.6 platelet count 212 d-dimer is elevated at 3.4 On 03/10/2021, patient was seen and examined in the ICU he is intubated sedated maintained on mechanical ventilation, arterial blood gas Reveals a pH of 7.45 pCO2 44 PaO2 78 d-dimer 1.84, patient is maintained on assist control rate 32 tidal folium 420 FiO2 50% and a PEEP of 12 Patient is scheduled for tracheostomy and PEG tube placement today. On 03/11/2021 patient was seen and examined in the ICU he is intubated, sedated and maintained on mechanical ventilation, he underwent racheostomy and PEG tube placement yesterday, his vent setting patient is maintained on assist control rate of 32 tidal volume 420 FiO2 50% and PEEP of 10 ABG reveals pH 7.46 pCO2 41 PaO2 81 liver enzymes are slightly elevated was AST at 78 ALT at 265 On 03/12/2021 patient was seen and examined in the ICU he is intubated through tracheostom, he is alert responsive trying to answer questions, he is maintained on BiPAP, there is no fever or chills no headache or dizziness no chest pain no shortness of breath no palpitation no cough no nausea or vomiting no abdominal pain no diarrhea no blood in the stools no burning with urination no frequency or urgency and no hematuria, patient is improving gradually. On 03/13/2021 patient was seen and examined in the ICU he is intubated through tracheostomy, he is alert responsive. He is maintained on BiPAP, there is no fever or chills no headache or dizziness no chest pain no shortness of breath no palpitation no cough no nausea or vomiting no abdominal pain no diarrhea no blood in the stools no burning with urination no frequency or urgency and no hematuria, patient is improving gradually. He remains on Decadron 6 mg IV every 12 hours, and SQ Lovenox On 03/14/2021 patient was seen and examined in the ICU he is alert responsive in no apparent distress he is maintained on a trach collar at FiO2 50% vital exam reveals a temperature of 98.9 pulse 80 respiration 42 blood pressure 142/86 pulse ox 92% his white blood count is 15.2 hemoglobin 13.4 platelet count 192 d- dimer is up to 9.29 patient is maintained on IV Decadron and subcu Lovenox pulmonary are following closely Objective - Vital Signs Vital signs: Vital Signs Temp 98.0 F 03/14/21 04:00 Pulse 90 03/14/21 07:00 Resp 45 H 03/14/21 07:00 BP 136/78 03/14/21 07:00 Pulse Ox 86 L 03/14/21 07:00 Intake & Output 03/13/21 03/14/21 03/14/21 18:59 06:59 18:59 Intake Total 179 618.512 114.488 Output Total 1920 1610 175 Balance -1741 -991.488 -60.512 Weight 112.1 kg Intake: IV 46 137 10 A line Flush 36 27 Sodium Chloride 0.9% 1, 10 110 10 000 ml @ 10 mls/hr IV . Q24H TERI Rx#:[id number] Intake, IV Titration 100 28.512 71.488 Amount fentaNYL (PF). 1,000 mcg 100 28.512 71.488 In Sodium Chloride 0.9% 80 ml @ Per Protocol IV . Q0M TERI Rx#:[id number] Tube Feeding 33 363 33 Other 90 Output: Urine 1920 1610 175 Other: Voiding Method Indwelling Catheter Indwelling Catheter ABP, PAP, CO, CI - Last Documented Arterial Blood Pressure 102/72 - Exam In general patient is intubated through tracheostomy, he is alert off sedation HEENT head normocephalic and atraumatic Neck is supple no JVD no goiter no lymphadenopathy Chest exam reveals a few scattered crackles no wheezing Cardiac exam reveals regular heart sounds no gallops no murmurs Abdomen is soft nontender no organomegaly with normal bowel sounds Extremity exam reveals no edema no cyanosis or clubbing Neurological examination reveals no gross focal deficit - Labs CBC & Chem 7: 03/14/21 04:32 03/14/21 04:32 Labs: Abnormal Lab Results - Last 24 Hours (Table) 03/13/21 03/14/21 03/14/21 Range/Units 17:47 04:32 04:32 WBC 15.2 H (3.8-10.6) k/uL D-Dimer (<0.60) mg/L FEU POC Glucose (mg/dL) 107 H (75-99) mg/dL AST 64 H (17-59) U/L ALT 194 H (4-49) U/L Lactate Dehydrogenase 1059 H (313-618) U/L Total Protein 5.9 L (6.3-8.2) g/dL 03/14/21 Range/Units 04:32 WBC (3.8-10.6) k/uL D-Dimer 9.29 H (<0.60) mg/L FEU POC Glucose (mg/dL) (75-99) mg/dL AST (17-59) U/L ALT (4-49) U/L Lactate Dehydrogenase (313-618) U/L Total Protein (6.3-8.2) g/dL Assessment and Plan Plan: 1. Acute COVID-19 pneumonia patient started on IV Decadron and subcu Lovenox pulmonary consultation was requested, patient developed acute hypoxic respiratory failure requiring intubation and mechanical ventilation 2. Underlying history of asthma 3. Underlying history of morbid obesity 4. Hyponatremia, patient started on IV normal months leading 5. Elevated liver enzymes, will monitor closely 6. Evidence of ileus patient is maintained on NG tube to suction, surgical consultation following At this time patient was seen and examined in the emergency room he was started on subcu Lovenox and IV dexamethasone, vitamin C and vitamin D and zinc supplements he was also started on inhaled bronchodilators patient will be admitted to medical floor pulmonary consultation was requested. Patient was s een by pulmonary he is maintained on oxygen supplements, IV Decadron, subcu Lovenox, patient has improved since yesterday
[2021-03-14 17:49] LABS: Glucose,Whole Blood 93 mg/dL (75-99)
[2021-03-14] MEDS: SODIUM CHLORIDE 0.9% 1,000 ML IV SCH (20:51)
[2021-03-14 23:37] LABS: Glucose,Whole Blood 90 mg/dL (75-99)
[2021-03-15] MEDS: METOCLOPRAMIDE 5 MG/ML 2 ML VIAL IVP SCH ×5 (00:13→23:27)
[2021-03-15 03:37] LABS: Basophils # (A) 0.1 k/uL (0-0.2); Basophils % (A) 0 %; Eosinophils # (A) 0.2 k/uL (0-0.7); Eosinophils % (A) 1 %; HCT 43.5 % (39.0-53.0); Lymphocytes % (A) 7 %; MCH 29.2 pg (25.0-35.0); MCHC 32.3 g/dL (31.0-37.0); MCV 90.4 fL (80.0-100.0); Monocytes # (A) 0.5 k/uL (0-1.0); Monocytes % (A) 4 %; Neutrophils # (A) 12.3 k/uL (1.3-7.7); Neutrophils % (A) 87 %; Platelet Count 201 k/uL (150-450); RBC 4.81 m/uL (4.30-5.90); RDW 15.8 % (11.5-15.5); WBC 14.2 k/uL (3.8-10.6)
[2021-03-15 03:51] LABS: ALT 160 U/L (4-49); AST 48 U/L (17-59); African American GFR (CKD) >90 (>60 ml/min/1.73 sqM); Albumin 3.6 g/dL (3.5-5.0); Alkaline Phosphatase 70 U/L (38-126); Anion Gap 9 mmol/L; Blood Urea Nitrogen 17 mg/dL (9-20); C Reactive Protein 2.2 mg/dL (<1.0); Carbon Dioxide 24 mmol/L (22-30); Chloride 104 mmol/L (98-107); Glucose 102 mg/dL (74-99); LDH 1331 U/L (313-618); Non-African American GFR(CKD) >90 (>60 ml/min/1.73 sqM); Potassium 3.9 mmol/L (3.5-5.1); Sodium 137 mmol/L (137-145); Total Bilirubin 1.4 mg/dL (0.2-1.3); Total Protein 6.1 g/dL (6.3-8.2)
[2021-03-15] MEDS ORDERED: Potassium Replacement Protocol 1 EACH MISC MISCELLANE PRN (05:15)
[2021-03-15] MEDS ORDERED: POTASSIUM BICARBONATE/CIT AC 20 MEQ TABLET.EFF NG-TUBE SCH (06:00)
[2021-03-15] MEDS: HYDROmorphone 1 MG/ML 1 ML SYRINGE IVP PRN ×3 (06:47→22:15)
[2021-03-15] MEDS: ALBUTEROL HFA INHALER INHALATION SCH ×4 (07:21→22:00)
--- NOTE | 2021-03-15 09:29 | XR ---
EXAMINATION TYPE: XR abdomen 1V DATE OF EXAM: 03/15/2021 9:10 AM CLINICAL HISTORY: Distention TECHNIQUE: Supine portable images of the abdomen and pelvis were obtained COMPARISON: 03/07/2021. FINDINGS: There is gaseous distention and dilatation of the small bowel loops within the left hemiabd omen. There is gas seen within the descending and transverse colon, with no evidence of complete smal l bowel obstruction. There is delineation of the wall of the cecum which may be related to air on eac h side of the bowel wall, as well lucent delineation around the region of the liver. There is a linea r radiopaque foreign body density over the left upper quadrant of uncertain etiology, which was not s een on prior comparison measuring approximately 12 mm. IMPRESSION: 1. Lucency delineating the right main abdominal structures may represent pneumoperitoneum. CT abdomen pelvis is recommended. 2. Gaseous dilatation of the left hemiabdominal small bowel loops may represent ileus versus incomple te small bowel obstruction. 3. 12 mm in radiopaque density over the left upper quadrant of the abdomen not seen on prior comparis on. Uncertain etiology. Recommend clinical correlation to check for objects external to patient. Find ing can also be reevaluated on CT abdomen pelvis. Dr. Alie Goyal discussed findings with Samira Aguilar RN via the phone on 03/15/2021 9:23 AM at 09:25 EST, and results were acknowledged.
--- NOTE | 2021-03-15 09:37 | XR ---
EXAMINATION TYPE: XR chest 1V portable DATE OF EXAM: 03/15/2021 CLINICAL HISTORY: covid. TECHNIQUE: Portable upright frontal view of the chest. COMPARISON: 03/14/2021 FINDINGS: Tracheostomy tube overlies the tracheal air column. Low lung volumes. Mild interstitial op acities of the bilateral lungs redemonstrated, with mildly improved aeration at the right lung base v ersus 03/14/2021. No pneumothorax. There is pneumoperitoneum under the bilateral hemidiaphragms. There is a linear radiopaque foreign body overlying the left upper quadrant, which is better appreciated on same day abdominal radiograph, which was not seen on prior comparisons. IMPRESSION: 1. Pneumoperitoneum. CT abdomen pelvis is recommended. 2. Thin linear radiopaque foreign body over the left upper quadrant, not seen on prior comparisons, b opal appreciated on same day abdominal radiograph. Finding can be further evaluated on CT abdomen pe lvis. 3. Interstitial opacities of the bilateral lungs with mildly improved aeration at the lung base versu s 03/14/2021. Dr. Alie Goyal discussed findings with Samira Aguilar RN via the phone on 03/15/2021 9:34 AM at 09:25 EST, and results were acknowledged.
--- NOTE | 2021-03-15 10:00 | P.PN ---
Subjective Progress Note Date: 03/15/21 On , I'm seeing this patient for a follow-up. This is a 35-year-old male patient was in the intensive care unit for respiratory failure due to COVID-19 related pneumonia. The patient intubated and mechanically ventilated on 03/01/2021 and subsequently the patient failed to wean and failed to recover and the patient required tracheostomy tube insertion and a PEG tube insertion for long-term ventilator care and enteral feeding for nutritional support and this was done on 03/10/2021. The patient is currently off sedation and his been off sedation for the past 24 hours. This morning, the patient patient is on a trach shield at 50% FiO2. He is calm and comfortable. He was taken off th e mechanical ventilator 3 am and his been off the mechanical ventilator since. During the course of the treatment, the patient was also cultured to have MSSA and Moraxella catarrhalis in his sputum. He was treated with antibiotics and currently is off antibiotics. Patient is hemodynamically stable on no pressors. He requires Cleviprex on and off for blood pressure control. He is receiving enteral feeding for dentures support with vital high protein at the rate of 33 mL an hour. Chest x-ray still showing diffuse but the pulmonary infiltrates. Inflammatory markers including LDH from is 686 with a CRP of 0.6. His d-dimer level was is still elevated 7.38 the patient was receiving Lovenox 60 mg subcu every 12 hours. Patient otherwise is tolerating enteral feeding for dentures support. The patient has been afebrile and hemodynamically stable. He remains on Decadron 6 mg IV every 12 hours. He is also on Lovenox for deep prophylaxis. Afebrile.Chest x-ray still showing diffuse bilateral interstitial infiltrates most on the right lower lobe and the patient has a PICC line in left upper extremity. Tracheostomy tube is in a good location. 03/14/2021, the patient is being seen for a follow-up. The patient spent the entire day yesterday trach collar at 50%. Overnight, the patient started having some increased oral and orotracheal secretions that were bloody. He was also desaturating. He was placed on 100% trach collar and following that he was placed back on a mechanical ventilator on his previous ventilator settings and he stayed on the assist control mode of the night. This morning, he was switched back to a trach collar at 50%. His current pulse ox is 90%. His chest x-ray showing that the tip of the tracheostomy tube was very high in the trachea and that she possibly may need to be repositioned and pushed in. He is awake and alert. He is off the mechanical ventilator for now. Chest x-ray still showing bilateral pulmonary infiltrates, essentially unchanged compared to yesterday. In terms of his treatment, the patient remains on Decadron 6 mg IV every 24 hours. Inflammatory markers from today of 9.29, LDH level of 1059 and a CRP level of 0.7. His white cell count is at 15.2 and hemoglobin of 13.4. Rest of the electrodes are all within normal limits. He remains on Lovenox for DVT prophylaxis. He is also receiving enteral feeding was nutritional support. The patient is receiving vital high protein at the rate of 33 mL an hour. Note that overnight, he had also to be placed on a low-dose fentanyl which unwilling to discontinue today. He is currently running at 3 mcg/kg per minute of fentanyl drip. He has a PEG tube in place. No abdominal distention. Regular bowel movements. On 03/15/2021, the patient is on the 50% trach collar. He is a bit anxious and tachypneic specially when he is having a communication with other nursing staff and physicians. When left alone, the patient aspirate was done in the mid 30s. He has a Shiley tracheostomy tube in place. He did have some limited amount of bleeding around the Shiley tracheostomy tube and there is no active bleeding at this point in time. No significant cough or sputum production. He is resting comfortably in bed. Physically is getting stronger. A repeat chest x-ray was done today and it showed some small bowel distention and for that reason an abdominal x-ray was done that raised the possibility of small bilateral ileus and at the same time there was a 12 mm opaque density over the left upper quadrant of the abdomen that was not seen on earlier evaluation. Based on his gastric and small bowel distention and the presence of a radiopaque density, general surgery was involved again with the patient be asked to be seen again by general surgery regarding his abnormalities. Meanwhile, the patient is passing flatus, he is still receiving enteral feeding for nutritional support in the form of vital high protein at the rate of 53 mL an hour. On examination, he denies having any significant abdominal distention or tenderness. Bowel sounds are present. No tympany on examination. His chest x-ray still showing bilateral pulmonary infiltrates consistent with COVID-19 related pneumonia. D- dimer is down to 8.7. His rest of the inflammatory markers shows a LDH level of 1331 and a CRP of 2.2. He is weaned down on his Decadron to 4 mg IV every 24 hours. He is also on Lovenox 60 mg subcu every 12 hours. Objective - Vital Signs Vital signs: Vital Signs Temp 98.4 F 03/15/21 04:00 Pulse 73 03/15/21 07:00 Resp 34 H 03/15/21 07:00 BP 139/79 03/15/21 07:00 Pulse Ox 92 L 03/15/21 07:22 Intake & Output 03/14/21 03/15/21 03/15/21 18:59 06:59 18:59 Intake Total 519.981 796 63 Output Total 2725 1575 200 Balance -2205.019 -779 -137 Weight 112.1 kg 115.7 kg Intake: IV 120 120 10 Sodium Chloride 0.9% 1, 120 120 10 000 ml @ 10 mls/hr IV . Q24H [facility]I Rx#:[id number] Intake, IV Titration 121.981 Amount Dexmedetomidine/0.9% NaCl 50.493 (Pmx) 400 mcg In Empty Bag 1 bag @ Titrate IV . Q0M [facility] Rx#:[id number] fentaNYL (PF). 1,000 mcg 71.488 In Sodium Chloride 0.9% 80 ml @ Per Protocol IV . Q0M [facility]I Rx#:[id number] Tube Feeding 248 586 53 Other 30 90 Output: Urine 2725 1575 200 Other: Voiding Method Indwelling Catheter Indwelling Catheter ABP, PAP, CO, CI - Last Documented Arterial Blood Pressure 102/72 - Exam GENERAL EXAM: Sedated, 35-year-old gentleman, on mechanical ventilator, comfortable in no apparent distress. Tracheostomy tube is in place, and the patient has a Shiley #[address]. He is on a 50% trach collar HEAD: Normocephalic. EYES: Normal reaction of pupils, equal size. NOSE: Clear with pink turbinates. THROAT: No erythema or exudates. NECK: Tracheostomy tube secured in place. No masses, no JVD. CHEST: No chest wall deformity. LUNGS: Equal air entry with bilateral coarse crackles. CVS: S1 and S2 normal with no audible murmur, regular rhythm. ABDOMEN: PEG tube exit site clean and dry. No hepatosplenomegaly, normal bowel sounds, no guarding or rigidity. Note that the abdomen is nondistended. No tympany. No tenderness. Bowel sounds are present. SPINE: No scoliosis or deformity SKIN: No rashes CENTRAL NERVOUS SYSTEM: Awake and alert and responsive EXTREMITIES: There is no peripheral edema. No clubbing, no cyanosis. Peripheral pulses are intact. - Labs CBC & Chem 7: 03/15/21 03:00 03/15/21 03:00 Labs: Abnormal Lab Results - Last 24 Hours (Table) 03/14/21 03/14/21 03/15/21 Range/Units 04:32 11:58 03:00 WBC 14.2 H (3.8-10.6) k/uL RDW 15.8 H (11.5-15.5) % Neutrophils # 12.3 H (1.3-7.7) k/uL D-Dimer (<0.60) mg/L FEU Creatinine (0.66-1.25) mg/dL Glucose (74-99) mg/dL POC Glucose (mg/dL) 108 H (75-99) mg/dL Ferritin 1277.7 H (22.0-322.0) ng/mL Total Bilirubin (0.2-1.3) mg/dL ALT (4-49) U/L Lactate Dehydrogenase (313-618) U/L C-Reactive Protein (<1.0) mg/dL Total Protein (6.3-8.2) g/dL 03/15/21 03/15/21 Range/Units 03:00 03:00 WBC (3.8-10.6) k/uL RDW (11.5-15.5) % Neutrophils # (1.3-7.7) k/uL D-Dimer 8.70 H (<0.60) mg/L FEU Creatinine 0.56 L (0.66-1.25) mg/dL Glucose 102 H (74-99) mg/dL POC Glucose (mg/dL) (75-99) mg/dL Ferritin (22.0-322.0) ng/mL Total Bilirubin 1.4 H (0.2-1.3) mg/dL ALT 160 H (4-49) U/L Lactate Dehydrogenase 1331 H (313-618) U/L C-Reactive Protein 2.2 H (<1.0) mg/dL Total Protein 6.1 L (6.3-8.2) g/dL Assessment and Plan Plan: 1 Acute hypoxemic respiratory failure, secondary to COVID 19 pneu monia/pneumonitis, requiring intubation and mechanical ventilation on 03/01/2021. The patient remains on and off on the ventilator dependent. This morning, the patient is off sedation. He was switched to a trach collar earlier this morning and currently is on a 60% FiO2. His chest x-ray shows smaller lung volumes and some elevation of the right hemidiaphragm. There is some limited infiltration bilaterally. Currently off the mechanical ventilator patient is on a 50% trach collar, quite comfortable with limited amount of bleeding around the tracheostomy stoma that was controlled by pressure and applying the appropriate dressing. 2 Failure to progress on mechanical ventilation, tracheostomy tube placement and PEG tube placed on 03/10/2021. 3 Acute ileus, requiring decompression with nasogastric tube, resolved and the patient is having regular bowel movements. The patient is still tolerating his enteral feeding for nutritional support. Nevertheless, on today's abdominal films, there is some dilation of the small bowel, consider underlying persistent partial ileus/bowel obstruction. On examination, no tenderness, no distention. His last bowel movement was yesterday. Questionable radiopaque density as noted on x-ray and this will be cleared with the general surgeon. 4 Methicillin sensitive staph aureus and Moraxella catarrhalis tracheobronchitis/bronchopneumonia, treated with Unasyn. Currently on no antibiotics 5 Morbid obesity. 6 Possible sleep apnea syndrome. 7 Lymphopenia, secondary to above 8 Elevated liver function tests, secondary to coronavirus infection, recovered 9 Hyponatremia, resolved. Plan: Continue Decadron 4 mg every 24 hours Arterial line has been discontinued Chest x-ray findings are stable, tracheostomy tube positioning was noted. The patient has a Shiley tracheostomy tube #8. Aggressive physical therapy Anticoagulation with Lovenox at a dose of 60 mg subcu every 12 hours, d-dimer continues to be quite elevated Enteral feeding for nutritional support Due to the evaluate the abdominal findings of the abdominal x-ray We'll continue to follow. May transfer to select specialty for further rehabilitation. Critically care evaluation, more than 30 minutes
[2021-03-15] MEDS: DEXAMETHASONE SOD PHOSPHATE 4 MG/ML 1 ML VIAL IV SCH (10:32)
[2021-03-15] MEDS: CHLORHEXIDINE GLUCONATE 15 ML CUP MUCOUS MEM SCH ×2 (10:32→21:12)
[2021-03-15] MEDS: bisacodyL 10 MG SUPP RECTAL SCH (10:32)
[2021-03-15] MEDS: PANTOPRAZOLE 40 MG/10 ML VIAL IV SCH (10:47)
[2021-03-15 11:27] LABS: Ferritin 902.1 ng/mL (22.0-322.0)
[2021-03-15] MEDS: ENOXAPARIN 60 MG/0.6 ML SYRINGE SQ SCH ×2 (12:06→21:12)
--- NOTE | 2021-03-15 12:15 | CT ---
EXAMINATION TYPE: CT abdomen pelvis wo con DATE OF EXAM: 03/15/2021 HISTORY: Possible free air, distention after recent PEG tube placement CT DLP: 1281.4 mGycm. Automated Exposure Control for Dose Reduction was Utilized. TECHNIQUE: CT scan of the abdomen and pelvis is performed without oral or IV contrast. COMPARISON: Abdominal and chest x-ray earlier today FINDINGS: Within the limitations of a non-contrast study, the following observations are made. LUNG BASES: Confluent groundglass opacities with organizing consolidations having air bronchograms po steriorly in the mid to lower lungs is present. LIVER/GB:. Visualized liver heterogeneously hypodense consistent with mild diffuse fatty infiltration . Some distended margins to gallbladder. PANCREAS: No significant abnormality is seen. SPLEEN: No significant abnormality is seen. ADRENALS: No significant abnormality is seen. KIDNEYS: Roach catheter decompresses bladder. BOWEL: There is percutaneous PEG tube satisfactory in position. 3 surgical olena or coils after dis cussion with surgeon have migrated outside stomach into the anterior abdominal wall at level of rectu s muscles. There is moderate to severe overlying free air. Subcutaneous air and fat stranding in the anterior abdominal wall along the course of the percutaneous PEG tube is consistent with recent place ment No suspicious small or large bowel dilatation. GENITAL ORGANS: No gross abnormality seen. LYMPH NODES: No greater than 1cm abdominal or pelvic lymph nodes are appreciated. OSSEOUS STRUCTURES: No significant abnormality is seen. OTHER: No significant additional abnormality is seen. IMPRESSION: Satisfactory positioning of percutaneous PEG tube but it is noted that the 3 sutures or c lips have migrated outside stomach lumen and into the anterior abdominal wall. Moderate to severe non specific overlying pneumoperitoneum noted is slightly more concerning given above.
--- NOTE | 2021-03-15 12:23 | P.PN ---
Subjective Progress Note Date: 03/15/21 Principal diagnosis: Ileus Patient again on trach collar. Had a small amount of bloody drainage around the tracheostomy site last night. Tolerating tube feeds. Patient denies abdominal pain. Today's chest x-ray shows pneumoperitoneum. He then went for a CAT scan after I evaluated him. Clinically stable. No fevers. White blood cell count 14. Objective - Vital Signs Vital signs: Vital Signs Temp 98.4 F 03/15/21 04:00 Pulse 73 03/15/21 07:00 Resp 34 H 03/15/21 07:00 BP 139/79 03/15/21 07:00 Pulse Ox 92 L 03/15/21 07:22 Intake & Output 03/14/21 03/15/21 03/15/21 18:59 06:59 18:59 Intake Total 519.981 796 63 Output Total 2725 1575 200 Balance -2205.019 -779 -137 Weight 112.1 kg 115.7 kg Intake: IV 120 120 10 Sodium Chloride 0.9% 1, 120 120 10 000 ml @ 10 mls/hr IV . Q24H [facility] Rx#:[id number] Intake, IV Titration 121.981 Amount Dexmedetomidine/0.9% NaCl 50.493 (Pmx) 400 mcg In Empty Bag 1 bag @ Titrate IV . Q0M [facility] Rx#:[id number] fentaNYL (PF). 1,000 mcg 71.488 In Sodium Chloride 0.9% 80 ml @ Per Protocol IV . Q0M [facility] Rx#:[id number] Tube Feeding 248 586 53 Other 30 90 Output: Urine 2725 1575 200 Other: Voiding Method Indwelling Catheter Indwelling Catheter ABP, PAP, CO, CI - Last Documented Arterial Blood Pressure 102/72 - Exam Trach site without active bleeding, sutures in place, no erythema Abdomen: Soft, mild distention, nontender, PEG tube in place - Labs CBC & Chem 7: 03/15/21 03:00 03/15/21 03:00 Labs: Abnormal Lab Results - Last 24 Hours (Table) 03/15/21 03/15/21 03/15/21 Range/Units 03:00 03:00 03:00 WBC 14.2 H (3.8-10.6) k/uL RDW 15.8 H (11.5-15.5) % Neutrophils # 12.3 H (1.3-7.7) k/uL D-Dimer 8.70 H (<0.60) mg/L FEU Creatinine 0.56 L (0.66-1.25) mg/dL Glucose 102 H (74-99) mg/dL Ferritin 902.1 H (22.0-322.0) ng/mL Total Bilirubin 1.4 H (0.2-1.3) mg/dL ALT 160 H (4-49) U/L Lactate Dehydrogenase 1331 H (313-618) U/L C-Reactive Protein 2.2 H (<1.0) mg/dL Total Protein 6.1 L (6.3-8.2) g/dL Assessment and Plan (1) Ileus Narrative/Plan: Today's chest x-ray was reviewed and does definitely show pneumoperitoneum. A CAT scan was ordered stat at that point. I just reviewed the films with radiology. The patient's PEG tube it is positioned appropriately within the stomach. The patient's 3 stay sutures however were closely evaluated. 2 of the 3 if not all 3 of the stay sutures showed the metallic [place] of the stitch to have pulled out of the stomach into the abdominal wall. I suspect the etiology for the pneumoperitoneum being a small microscopic perforation were the sutures have pulled through the stomach wall. No other abnormalities of the bowel or d uodenum are appreciated. Case was reviewed with Dr. Walter. At this point we will begin a trial of close observation without surgical intervention. PEG tube will be placed to dependent drainage. Empiric antibiotics will be started. If the patient begins having abdominal pain or shows any clinical evidence of peritonitis would proceed with laparoscopy and possible laparotomy at that time. I did call the patient's mother by phone to update her and no answer. Current Visit: Yes Status: Acute Code(s): K56.7 - ILEUS, UNSPECIFIED SNOMED Code(s): 780460648
--- NOTE | 2021-03-15 17:43 | P.PN ---
Subjective Progress Note Date: 03/15/21 Osmar Drummond, is a 35-year-old male patient of Dr. Hdz, who presented to [facility] emergency room with a chief complaint of worsening shortness of breath and chest tightness. Patient was also having persistent cough his symptoms started 12 days ago however he had severe worsening of his symptoms in the last 3 days. He stated that last Saturday he was tested for COVID-19, results came back positive on Saturday. He was evaluated in the emergency room vital examination on presentation revealed a temperature of 103 pulse 92 respiration 18 blood pressure 124/77 pulse ox 92% on room air. White blood count was 4.2 hemoglobin 15.4 platelet count 161 sodium 125 potassium 3.9 chloride 88 calcium 7.8 BUN 8 creatinine 0.94 AST 98 ALT 57 LDH 1623 C-reactive protein 41.1 EKG done in the emergency room revealed normal sinus rhythm normal EKG, chest x-ray done in the emergency room revealed patchy bilateral infiltrates compatible with multifocal pneumonia no pneumothorax. Patient was admitted to medical floor pulmonary consultation was requested. On 02/25/2021 patient was seen and examined on the medical floor he is alert and oriented 3 in no distress, he is still complaining of cough and shortness of breath otherwise he denies any complaints there is no fever or chills no hea dache or dizziness no chest pain no nausea or vomiting no abdominal pain no diarrhea no blood in the stools no burning was urination no frequency or urgency and no hematuria. On 02/26/2021 patient was seen and examined on the medical floor he is alert and oriented 3 in no distress he seems to be worse today he is having more tachycardia and tachypnea, his temperature is 99.8 pulse ox is down to 82% on 15 L high flow cannula inflammatory markers are up his LDH is 1735 up from 1440 yesterday C-reactive protein is up to 7.2 up from 6 yesterday d-dimer is up to 1.21 up from 0.77 yesterday, at this time patient is maintained on inhaled bronchodilators, IV Decadron, subcu Lovenox,, repeat chest x-ray done today reveals by basilar infiltrates and opacities consistent with COVID-19 infection without any significant change from previous x-ray on 02/27/2021 patient was seen and examined on the medical floor, he is alert and oriented 3 in no apparent distress he is reporting some improvement in his shortness of breath, vital exam reveals a temperature of 99.1 pulse 102 respiration 20 blood pressure 121/84 pulse ox 87% on 15 L high flow cannula, white blood count is 6.2 hemoglobin 13.8 platelet count 262 d-dimer 1.51 sodium 127 potassium 4.0 chloride 94 CO2 25 BUN 13 creatinine 0.81 LDH 1969 C-reactive protein up to 8.9, patient is complaining of cough and shortness of breath otherwise he denies any complaints there is no fever or chills no headache or dizziness no chest pain no nausea or vomiting no abdominal pain no diarrhea no blood in the stools no burning with urination no frequency or urgency and no hematuria On 02/28/2021 patient was seen and examined on the medical floor he is alert and oriented 3 in no apparent distress, he is still maintained on Airvo with FiO2 of 90% his temperature is 98.7 pulse 116 respiration 28 blood pressure 145/81 pulse ox 93% he is complaining of shortness of breath and occasional cough otherwise he denies any complaints there is no fever or chills no headache or dizziness no chest pain no nausea or vomiting no abdominal pain no diarrhea no blood in the stools no burning with urination no frequency or urgency and no hematuria. On 03/01/2021 patient was seen and examined in the ICU he is intubated sedated maintained on mechanical ventilation air this morning patient was having worsening shortness of breath and decreased O2 sat duration despite Airvo, he was transferred to ICU and was intubated. Currently patient is on assist c ontrol tidal volume of 400 rate of 30 FiO2 100% and PEEP of 10 arterial blood gas reveals a pH of 7.24 pCO2 55 PO2 78 sodium is 127 LDH 2034 C-reactive protein 4.5 pulmonary are following closely On 03/02/2021 patient was seen and examined in the ICU he is intubated sedated maintained on mechanical ventilation air this morning patient was having worsening shortness of breath and decreased O2 sat duration despite Airvo, he was transferred to ICU and was intubated. Currently patient is on assist control tidal volume of 400 rate of 30 FiO2 100% and PEEP of 10 arterial blood gas reveals a pH of 7.24 pCO2 55 PO2 78 sodium is 127 LDH 203 C-reactive protein 4.5 pulmonary are following closely. Patient has evidence of ileus, he is maintained on NG tube to suction, surgical consultation was requested. On 03/03/2021 patient was seen and examined in the ICU he is intubated sedated maintained on mechanical ventilation air this morning patient was having worsening shortness of breath and decreased O2 sat duration despite Airvo, he was transferred to ICU and was intubated. Currently patient is on assist control tidal volume of 420 rate of 30 FiO2 85 % and PEEP of 16 arterial blood gas reveals a pH of 7.39 pCO2 55 PO2 66 sodium is 134 LDH 2034 C-reactive protein 4.5 pulmonary are following closely. Patient has evidence of ileus, he is maintained on NG tube to suction, surgical consultation was requested. On 03/04/2021 patient was seen and examined in the ICU he is intubated sedated maintained on mechanical ventilation air this morning patient was having worsening shortness of breath and decreased O2 sat duration despite Airvo, he was transferred to ICU and was intubated. Currently patient is on assist control tidal volume of 420 rate of 30 FiO2 85 % and PEEP of 16 arterial blood gas reveals a pH of 7.41 pCO2 53 PO2 89 sodium is 136 D-Dimer 2.0 pulmonary are following closely.\\ On 03/05/2021 patient was seen and examined in the ICU he is intubated sedated maintained on mechanical ventilation, patient is maintained on assist control tidal volume 42 rate of 30 FiO2 75% and PEEP at 16 arterial blood gas reveals a pH of 7.43 pCO2 48 and PO2 84 white blood count is 11.6 hemoglobin 11.3 platelet count 305 d-dimer 1.85 On 03/06/2021 patient was seen and examined in the ICU he is intubated sedated maintained on mechanical ventilation, patient is maintained on assist control tidal volume 420 rate of 30 FiO2 55% and PEEP at 12 arterial blood gas reveals a pH of 7.43 pCO2 49 and PO2 88 white blood count is 11.6 hemoglobin 11.9 platelet count 305 d-dimer 1.7 patient had a sedation holiday today he did well he was alert and following commands On 03/07/2021 patient was seen and examined in the ICU he is intubated sedated maintained on mechanical ventilation patient is maintained on assist control tidal volume 420 rate 32 FiO2 50% with a PEEP of 12 arterial blood gas reveals a pH of 7.44 pCO2 45 and PaO2 of 71 patient is having sedation holidays and is responding well at that time. On 03/08/2021, patient was seen and examined in the ICU he is intubated sedated maintained on mechanical ventilation, arterial blood gas Reveals a pH of 7.45 pCO2 44 PaO2 78 d-dimer 1.84, patient is maintained on assist control rate 32 tidal folium 420 FiO2 50% and a PEEP of 12 On 03/09/2021 patient was seen and examined in the ICU he is intubated sedated maintained on mechanical ventilation, he is scheduled for tracheostomy and PEG tube placement tomorrow, arterial blood gas reveals a pH of 7.4 to pCO2 48 PaO2 73 white blood count is 9.9 hemoglobin 11.6 platelet count 212 d-dimer is elevated at 3.4 On 03/10/2021, patient was seen and examined in the ICU he is intubated sedated maintained on mechanical ventilation, arterial blood gas Reveals a pH of 7.45 pCO2 44 PaO2 78 d-dimer 1.84, patient is maintained on assist control rate 32 tidal folium 420 FiO2 50% and a PEEP of 12 Patient is scheduled for tracheostomy and PEG tube placement today. On 03/11/2021 patient was seen and examined in the ICU he is intubated, sedated and maintained on mechanical ventilation, he underwent racheostomy and PEG tube placement yesterday, his vent setting patient is maintained on assist control rate of 32 tidal volume 420 FiO2 50% and PEEP of 10 ABG reveals pH 7.46 pCO2 41 PaO2 81 liver enzymes are slightly elevated was AST at 78 ALT at 265 On 03/12/2021 patient was seen and examined in the ICU he is intubated through tracheostom, he is alert responsive trying to answer questions, he is maintained on BiPAP, there is no fever or chills no headache or dizziness no chest pain no shortness of breath no palpitation no cough no nausea or vomiting no abdominal pain no diarrhea no blood in the stools no burning with urination no frequency or urgency and no hematuria, patient is improving gradually. On 03/13/2021 patient was seen and examined in the ICU he is intubated through tracheostomy, he is alert responsive. He is maintained on BiPAP, there is no fever or chills no headache or dizziness no chest pain no shortness of breath no palpitation no cough no nausea or vomiting no abdominal pain no diarrhea no blood in the stools no burning with urination no frequency or urgency and no hematuria, patient is improving gradually. He remains on Decadron 6 mg IV every 12 hours, and SQ Lovenox On 03/14/2021 patient was seen and examined in the ICU he is alert responsive in no apparent distress he is maintained on a trach collar at FiO2 50% vital exam reveals a temperature of 98.9 pulse 80 respiration 42 blood pressure 142/86 pulse ox 92% his white blood count is 15.2 hemoglobin 13.4 platelet count 192 d- dimer is up to 9.29 patient is maintained on IV Decadron and subcu Lovenox pulmonary are following closely On 03/15/2021 patient was seen and examined in the ICU he is alert responsive in no apparent distress he is maintained on a trach collar at FiO2 50% vital exam reveals a temperature of 98.9 pulse 80 respiration 42 blood pressure 142/86 pulse ox 92% his white blood count is 14.2 hemoglobin 14 platelet count 201 d- dimer is 8.7 patient is maintained on IV Decadron and subcu Lovenox pulmonary are following closely, surgery is following regarding ileus, CT scan of the abdomen ordered for today Objective - Vital Signs Vital signs: Vital Signs Temp 98.4 F 03/15/21 04:00 Pulse 73 03/15/21 07:00 Resp 34 H 03/15/21 07:00 BP 139/79 03/15/21 07:00 Pulse Ox 92 L 03/15/21 07:22 Intake & Output 03/14/21 03/15/21 03/15/21 18:59 06:59 18:59 Intake Total 519.981 796 63 Output Total 2725 1575 200 Balance -2205.019 -779 -137 Weight 112.1 kg 115.7 kg Intake: IV 120 120 10 Sodium Chloride 0.9% 1, 120 120 10 000 ml @ 10 mls/hr IV . Q24H TERI Rx#:[id number] Intake, IV Titration 121.981 Amount Dexmedetomidine/0.9% NaCl 50.493 (Pmx) 400 mcg In Empty Bag 1 bag @ Titrate IV . Q0M TERI Rx#:[id number] fentaNYL (PF). 1,000 mcg 71.488 In Sodium Chloride 0.9% 80 ml @ Per Protocol IV . Q0M TERI Rx#:[id number] Tube Feeding 248 586 53 Other 30 90 Output: Urine 2725 1575 200 Other: Voiding Method Indwelling Catheter Indwelling Catheter ABP, PAP, CO, CI - Last Documented Arterial Blood Pressure 102/72 - Exam In general patient is intubated through tracheostomy, he is alert off sedation HEENT head normocephalic and atraumatic Neck is supple no JVD no goiter no lymphadenopathy Chest exam reveals a few scattered crackles no wheezing Cardiac exam reveals regular heart sounds no gallops no murmurs Abdomen is soft nontender no organomegaly with normal bowel sounds Extremity exam reveals no edema no cyanosis or clubbing Neurological examination reveals no gross focal deficit - Labs CBC & Chem 7: 03/15/21 03:00 03/15/21 03:00 Labs: Abnormal Lab Results - Last 24 Hours (Table) 03/14/21 03/14/21 03/15/21 Range/Units 04:32 11:58 03:00 WBC 14.2 H (3.8-10.6) k/uL RDW 15.8 H (11.5-15.5) % Neutrophils # 12.3 H (1.3-7.7) k/uL D-Dimer (<0.60) mg/L FEU Creatinine (0.66-1.25) mg/dL Glucose (74-99) mg/dL POC Glucose (mg/dL) 108 H (75-99) mg/dL Ferritin 1277.7 H (22.0-322.0) ng/mL Total Bilirubin (0.2-1.3) mg/dL ALT (4-49) U/L Lactate Dehydrogenase (313-618) U/L C-Reactive Protein (<1.0) mg/dL Total Protein (6.3-8.2) g/dL 03/15/21 03/15/21 Range/Units 03:00 03:00 WBC (3.8-10.6) k/uL RDW (11.5-15.5) % Neutrophils # (1.3-7.7) k/uL D-Dimer 8.70 H (<0.60) mg/L FEU Creatinine 0.56 L (0.66-1.25) mg/dL Glucose 102 H (74-99) mg/dL POC Glucose (mg/dL) (75-99) mg/dL Ferritin (22.0-322.0) ng/mL Total Bilirubin 1.4 H (0.2-1.3) mg/dL ALT 160 H (4-49) U/L Lactate Dehydrogenase 1331 H (313-618) U/L C-Reactive Protein 2.2 H (<1.0) mg/dL Total Protein 6.1 L (6.3-8.2) g/dL Assessment and Plan Plan: 1. Acute COVID-19 pneumonia patient started on IV Decadron and subcu Lovenox pulmonary consultation was requested, patient developed acute hypoxic respiratory failure requiring intubation and mechanical ventilation 2. Underlying history of asthma 3. Underlying history of morbid obesity 4. Hyponatremia, patient started on IV normal months leading 5. Elevated liver enzymes, will monitor closely 6. Evidence of ileus patient is maintained on NG tube to suction, surgical consultation following At this time patient was seen and examined in the emergency room he was started on subcu Lovenox and IV dexamethasone, vitamin C and vitamin D and zinc supplements he was also started on inhaled bronchodilators patient will be admitted to medical floor pulmonary consultation was requested. Patient was seen by pulmonary he is maintained on oxygen supplements, IV Decadron, subcu Lovenox, patient has improved since yesterday
[2021-03-15] MEDS: CLEVIDIPINE BUTYRATE 25 MG in EMPTY BAG 1 BAG IV SCH (18:12)
[2021-03-15 18:25] LABS: Glucose,Whole Blood 116 mg/dL (75-99)
[2021-03-15] MEDS: PIPERACILLIN-TAZOBACTAM 3.375 GM in SODIUM CHLORIDE 0.9% 100 ML IVPB SCH ×2 (18:33→23:27)
[2021-03-15 23:23] LABS: Glucose,Whole Blood 96 mg/dL (75-99)
[2021-03-15] MEDS: SODIUM CHLORIDE 0.9% 1,000 ML IV SCH (23:28)
[2021-03-16 06:04] LABS: HCT 40.9 % (39.0-53.0); HGB 14.3 gm/dL (13.0-17.5); MCH 31.4 pg (25.0-35.0); MCHC 34.9 g/dL (31.0-37.0); MCV 89.7 fL (80.0-100.0); Platelet Count 193 k/uL (150-450); RBC 4.55 m/uL (4.30-5.90); RDW 15.4 % (11.5-15.5); WBC 12.7 k/uL (3.8-10.6)
[2021-03-16 06:09] LABS: Glucose,Whole Blood 84 mg/dL (75-99)
[2021-03-16 06:34] LABS: ALT 127 U/L (4-49); AST 35 U/L (17-59); African American GFR (CKD) >90 (>60 ml/min/1.73 sqM); Albumin 3.9 g/dL (3.5-5.0); Alkaline Phosphatase 70 U/L (38-126); Anion Gap 10 mmol/L; Blood Urea Nitrogen 18 mg/dL (9-20); Calcium 9.4 mg/dL (8.4-10.2); Carbon Dioxide 24 mmol/L (22-30); Chloride 103 mmol/L (98-107); Glucose 90 mg/dL (74-99); Non-African American GFR(CKD) >90 (>60 ml/min/1.73 sqM); Potassium 4.2 mmol/L (3.5-5.1); Sodium 137 mmol/L (137-145); Total Bilirubin 1.8 mg/dL (0.2-1.3); Total Protein 6.4 g/dL (6.3-8.2)
[2021-03-16] MEDS: METOCLOPRAMIDE 5 MG/ML 2 ML VIAL IVP SCH ×4 (06:41→23:27)
[2021-03-16] MEDS: ALBUTEROL HFA INHALER INHALATION SCH ×4 (07:45→19:54)
--- NOTE | 2021-03-16 08:12 | P.PN ---
Subjective Progress Note Date: 03/16/21 On , I'm seeing this patient for a follow-up. This is a 35-year-old male patient was in the intensive care unit for respiratory failure due to COVID-19 related pneumonia. The patient intubated and mechanically ventilated on 03/01/2021 and subsequently the patient failed to wean and failed to recover and the patient required tracheostomy tube insertion and a PEG tube insertion for long-term ventilator care and enteral feeding for nutritional support and this was done on 03/10/2021. The patient is currently off sedation and his been off sedation for the past 24 hours. This morning, the patient patient is on a trach shield at 50% FiO2. He is calm and comfortable. He was taken off th e mechanical ventilator 3 am and his been off the mechanical ventilator since. During the course of the treatment, the patient was also cultured to have MSSA and Moraxella catarrhalis in his sputum. He was treated with antibiotics and currently is off antibiotics. Patient is hemodynamically stable on no pressors. He requires Cleviprex on and off for blood pressure control. He is receiving enteral feeding for dentures support with vital high protein at the rate of 33 mL an hour. Chest x-ray still showing diffuse but the pulmonary infiltrates. Inflammatory markers including LDH from is 686 with a CRP of 0.6. His d-dimer level was is still elevated 7.38 the patient was receiving Lovenox 60 mg subcu every 12 hours. Patient otherwise is tolerating enteral feeding for dentures support. The patient has been afebrile and hemodynamically stable. He remains on Decadron 6 mg IV every 12 hours. He is also on Lovenox for deep prophylaxis. Afebrile.Chest x-ray still showing diffuse bilateral interstitial infiltrates most on the right lower lobe and the patient has a PICC line in left upper extremity. Tracheostomy tube is in a good location. 03/14/2021, the patient is being seen for a follow-up. The patient spent the entire day yesterday trach collar at 50%. Overnight, the patient started having some increased oral and orotracheal secretions that were bloody. He was also desaturating. He was placed on 100% trach collar and following that he was placed back on a mechanical ventilator on his previous ventilator settings and he stayed on the assist control mode of the night. This morning, he was switched back to a trach collar at 50%. His current pulse ox is 90%. His chest x-ray showing that the tip of the tracheostomy tube was very high in the trachea and that she possibly may need to be repositioned and pushed in. He is awake and alert. He is off the mechanical ventilator for now. Chest x-ray still showing bilateral pulmonary infiltrates, essentially unchanged compared to yesterday. In terms of his treatment, the patient remains on Decadron 6 mg IV every 24 hours. Inflammatory markers from today of 9.29, LDH level of 1059 and a CRP level of 0.7. His white cell count is at 15.2 and hemoglobin of 13.4. Rest of the electrodes are all within normal limits. He remains on Lovenox for DVT prophylaxis. He is also receiving enteral feeding was nutritional support. The patient is receiving vital high protein at the rate of 33 mL an hour. Note that overnight, he had also to be placed on a low-dose fentanyl which unwilling to discontinue today. He is currently running at 3 mcg/kg per minute of fentanyl drip. He has a PEG tube in place. No abdominal distention. Regular bowel movements. On 03/15/2021, the patient is on the 50% trach collar. He is a bit anxious and tachypneic specially when he is having a communication with other nursing staff and physicians. When left alone, the patient aspirate was done in the mid 30s. He has a Shiley tracheostomy tube in place. He did have some limited amount of bleeding around the Shiley tracheostomy tube and there is no active bleeding at this point in time. No significant cough or sputum production. He is resting comfortably in bed. Physically is getting stronger. A repeat chest x-ray was done today and it showed some small bowel distention and for that reason an abdominal x-ray was done that raised the possibility of small bilateral ileus and at the same time there was a 12 mm opaque density over the left upper quadrant of the abdomen that was not seen on earlier evaluation. Based on his gastric and small bowel distention and the presence of a radiopaque density, general surgery was involved again with the patient be asked to be seen again by general surgery regarding his abnormalities. Meanwhile, the patient is passing flatus, he is still receiving enteral feeding for nutritional support in the form of vital high protein at the rate of 53 mL an hour. On examination, he denies having any significant abdominal distention or tenderness. Bowel sounds are present. No tympany on examination. His chest x-ray still showing bilateral pulmonary infiltrates consistent with COVID-19 related pneumonia. D- dimer is down to 8.7. His rest of the inflammatory markers shows a LDH level of 1331 and a CRP of 2.2. He is weaned down on his Decadron to 4 mg IV every 24 hours. He is also on Lovenox 60 mg subcu every 12 hours. On today's evaluation of 03/16/2021, I'm seeing this patient for a follow-up. The patient remains on trach collar at 60%. He seems to be quite comfortable. He did not go on a mechanical ventilator overnight and he stayed on trach collar throughout the day and overnight. Abdominal films and the chest from yesterday showed air under the diaphragm. There was free air and there was also some gastric distention. I consulted with general surgery and the patient was seen by Dr. Rk encarnacion. A CAT scan of the abdomen and pelvis was done and based on the findings, there was confirmation of pneumoperitoneum that was moderate to severe amount and the patient had satisfactory the was a shooting of the PEG tube. It was noted also that the sutures and the clips hasn't migrated and his general surgeon is aware of that nevertheless, despite these findings, the patient does have a soft abdomen. The patient was made nothing by mouth yesterday. His activity was drained to gravity and his produce approximately 400 mL of gastric/bilious material. The patient's white cell count is at 12.7. Hemoglobin is at 14.3. No evidence of any GI bleeding. Platelet count is at 193. His electrolytes all within normal limits. No significant acidosis. Renal function stable with a creatinine of 0.7. LFTs are also adequate for now some elevation in the ALT was noted. Meanwhile, d-dimer is at 10.09. LDH level was not checked from today. His chest x-ray is unchanged and the patient continues to have pneumoperitoneum bilaterally. There is air under the diaphragms bilaterally. The patient remains on Decadron 4 mg IV every 24 hours and the patient is also on Lovenox 60 mg subcu every 12 hours which was placed on hold by general surgery. He is currently on IV Zosyn and this was started yesterday by general surgery as an empiric antibiotic coverage. He is on no sedation. Is awake and alert. His communicating. At times he gets worked up and short of breath and there may be a component of anxiety. Objective - Vital Signs Vital signs: Vital Signs Temp 98 F 03/16/21 01:00 Pulse 94 03/16/21 07:00 Resp 50 H 03/16/21 07:00 BP 117/76 03/16/21 07:00 Pulse Ox 91 L 03/16/21 07:00 Intake & Output 03/15/21 03/16/21 03/16/21 18:59 06:59 18:59 Intake Total 365 330 Output Total 2049 1100 Balance -1685 -770 Weight 110 kg Intake: IV 70 130 Sodium Chloride 0.9% 1, 70 130 000 ml @ 10 mls/hr IV . Q24H TERI Rx#:[id number] Intake, IV Titration 200 Amount Piperacillin-Tazobactam 3 200 .375 gm In Sodium Chloride 0.9% 100 ml @ 25 mls/hr IVPB Q8HR TERI Rx# :[id number] Tube Feeding 265 Other 30 Output: Gastric Drainage 240 Urine 2049 860 Other: Voiding Method Indwelling Catheter Indwelling Catheter # Bowel Movements 2 ABP, PAP, CO, CI - Last Documented Arterial Blood Pressure 102/72 - Exam GENERAL EXAM: Sedated, 35-year-old gentleman, on mechanical ventilator, comfortable in no apparent distress. Tracheostomy tube is in place, and the patient has a Shiley #[address]. He is on a 50% trach collar HEAD: Normocephalic. EYES: Normal reaction of pupils, equal size. NOSE: Clear with pink turbinates. THROAT: No erythema or exudates. NECK: Tracheostomy tube secured in place. No masses, no JVD. CHEST: No chest wall deformity. LUNGS: Equal air entry with bilateral coarse crackles. CVS: S1 and S2 normal with no audible murmur, regular rhythm. ABDOMEN: PEG tube exit site clean and dry. No hepatosplenomegaly, normal bowel sounds, no guarding or rigidity. Note that the abdomen is nondistended. No tympany. No tenderness. Bowel sounds are present. Some dried of bloody secretions around the PEG tube orifice SPINE: No scoliosis or deformity SKIN: No rashes CENTRAL NERVOUS SYSTEM: Awake and alert and responsive EXTREMITIES: There is no peripheral edema. No clubbing, no cyanosis. Peripheral pulses are intact. - Labs CBC & Chem 7: 03/16/21 05:48 03/16/21 05:48 Labs: Abnormal Lab Results - Last 24 Hours (Table) 03/15/21 03/15/21 03/16/21 Range/Units 03:00 18:23 05:48 WBC 12.7 H (3.8-10.6) k/uL D-Dimer (<0.60) mg/L FEU POC Glucose (mg/dL) 116 H (75-99) mg/dL Ferritin 902.1 H (22.0-322.0) ng/mL Total Bilirubin (0.2-1.3) mg/dL ALT (4-49) U/L 03/16/21 03/16/21 Range/Units 05:48 05:48 WBC (3.8-10.6) k/uL D-Dimer 10.09 H (<0.60) mg/L FEU POC Glucose (mg/dL) (75-99) mg/dL Ferritin (22.0-322.0) ng/mL Total Bilirubin 1.8 H (0.2-1.3) mg/dL ALT 127 H (4-49) U/L Assessment and Plan Plan: 1 Acute hypoxemic respiratory failure, secondary to COVID 19 pneumonia/pneumonitis, requiring intubation and mechanical ventilation on 0 03/01/2021. The patient is currently on a trach collar. His been off the mechanical ventilator for more than 48 hours. He was switched to a trach collar earlier this morning and currently is on a 98% FiO2. His chest x-ray shows smaller lung volumes and some elevation of the right hemidiaphragm. There is some limited infiltration bilaterally. There is of pneumoperitoneum and air under the diaphragms bilaterally. This is a complication post PEG tube insertion. No signs of any respiratory decompensation. His having some secretions from his 2 Failure to progress on mechanical ventilation, tracheostomy tube placement and PEG tube placed on 03/10/2021. 3 pneumoperitoneum, post PEG tube insertion. Findings were discussed with general surgery. No evidence of any acute abdomen at this point in time. We decided to keep the patient nothing by mouth for now. PEG tube is to dependent drainage. Output is being monitored. No acidosis. No leukocytosis. No abdominal pain or distention. No tenderness. The computed tomography scan of the abdomen and pelvis was noted. There is some issue with the sutures/collapse associated with the PEG tube. The patient is nothing by mouth. The patient is currently on IV Zosyn. The patient was also taken off anticoagulants. 4 Methicillin sensitive staph aureus and Moraxella catarrhalis tracheobronchitis/bronchopneumonia, treated with Unasyn. 5 Morbid obesity. 6 Possible sleep apnea syndrome. 7 Lymphopenia, secondary to above 8 Elevated liver function tests, secondary to coronavirus infection, recovered 9 Hyponatremia, resolved. Plan: Continue Decadron 4 mg every 24 hours Keep the patient nothing by mouth Hold tube feeds Monitor the output from the PEG tube which is attached to dependent drainage Recheck sputum Gram stain and culture Continue IV Zosyn Lovenox has been discontinued by the general surgeon due to the above-mentioned complications Apply compression devices lower extremities Monitor inflammatory markers Repeat chest x-ray in the morning No surgical intervention and patient will be monitored regarding this pneumoperitoneum and he'll be kept in ICU. We'll continue to follow. The case was discussed with the general surgeon at length. Critically care evaluation, more than 30 minutes Time with Patient: Greater than 30
[2021-03-16] MEDS: ENOXAPARIN 60 MG/0.6 ML SYRINGE SQ SCH ×2 (08:44→20:56)
--- NOTE | 2021-03-16 08:51 | XR ---
EXAMINATION TYPE: XR chest 1V portable DATE OF EXAM: 03/16/2021 CLINICAL HISTORY: SOB. Covid 19. TECHNIQUE: Portable frontal view of the chest. COMPARISON: 03/15/2021 chest x-ray, abdominal x-ray, and CT abdomen pelvis FINDINGS: Tracheostomy tube overlies the tracheal air column. Redemonstrated left PICC. Low lung volu mes. Mild interstitial opacities of the bilateral lungs unchanged. No pleural effusion. No pneumothor ax. There is redemonstrated bilateral pneumoperitoneum under the hemidiaphragms. IMPRESSION: 1. Unchanged mild interstitial opacities bilaterally. 2. Redemonstrated known pneumoperitoneum, as well as seen on 03/15/2021.
[2021-03-16] MEDS: PANTOPRAZOLE 40 MG/10 ML VIAL IV SCH (10:09)
[2021-03-16] MEDS: PIPERACILLIN-TAZOBACTAM 3.375 GM in SODIUM CHLORIDE 0.9% 100 ML IVPB SCH ×3 (10:09→23:27)
[2021-03-16] MEDS: CHLORHEXIDINE GLUCONATE 15 ML CUP MUCOUS MEM SCH ×2 (10:09→21:29)
[2021-03-16] MEDS: bisacodyL 10 MG SUPP RECTAL SCH (10:09)
[2021-03-16] MEDS: DEXAMETHASONE SOD PHOSPHATE 4 MG/ML 1 ML VIAL IV SCH (10:10)
[2021-03-16 11:33] LABS: Glucose,Whole Blood 91 mg/dL (75-99)
[2021-03-16] MEDS: HYDROmorphone 1 MG/ML 1 ML SYRINGE IVP PRN (11:46)
[2021-03-16] MEDS ORDERED: LORazepam 2 MG/ML INJ ONE (11:57)
[2021-03-16] MEDS ORDERED: LORazepam 2 MG/ML INJ IV STA (12:02)
[2021-03-16] MEDS: levETIRAcetam IV 1,000 MG in SALINE 1 100ML.BAG IVPB SCH ×2 (12:19→23:27)
[2021-03-16] MEDS: NOREPINEPHRINE 32 MG in SODIUM CHLORIDE 0.9% 218 ML IV SCH (13:16)
--- NOTE | 2021-03-16 13:31 | CT ---
EXAMINATION TYPE: CT brain wo con DATE OF EXAM: 03/16/2021 COMPARISON: None INDICATION: New onset seizure DLP: 1158.4 mGycm, Automated exposure control for dose reduction was used. CONTRAST: None CT of the brain is performed utilizing 3 mm thick sections through the posterior fossa and 3 mm thick sections through the remaining calvarium. Study is performed within 24 hours of arrival to the hosp [facility]. No abnormal hyperdensity is present to suggest an acute intracranial hemorrhage. No mass lesion is evident. No acute infarcts are evident. Ventricles and sulci are appropriate for the patient age. Pedicles thickening is within the right maxillary sinus. An air-fluid level appears to be present. A small retention cyst is within the inferior anterior left maxillary sinus. IMPRESSIONS: 1. No acute intracranial process. 2. Possible acute right maxillary sinusitis.
[2021-03-16 13:52] LABS: Basophils # (A) 0.1 k/uL (0-0.2); Basophils % (A) 0 %; Eosinophils # (A) 0.3 k/uL (0-0.7); Eosinophils % (A) 1 %; HCT 44.3 % (39.0-53.0); HGB 14.7 gm/dL (13.0-17.5); Lymphocytes # (A) 0.7 k/uL (1.0-4.8); Lymphocytes % (A) 4 %; MCH 30.1 pg (25.0-35.0); MCHC 33.1 g/dL (31.0-37.0); MCV 90.7 fL (80.0-100.0); Mean Platelet Volume 8.4; Monocytes # (A) 0.9 k/uL (0-1.0); Monocytes % (A) 5 %; Neutrophils # (A) 17.6 k/uL (1.3-7.7); Neutrophils % (A) 89 %; Platelet Count 208 k/uL (150-450); RBC 4.89 m/uL (4.30-5.90); RDW 15.2 % (11.5-15.5); WBC 19.8 k/uL (3.8-10.6)
[2021-03-16 14:01] LABS: ALT 116 U/L (4-49); AST 39 U/L (17-59); African American GFR (CKD) >90 (>60 ml/min/1.73 sqM); Albumin 3.9 g/dL (3.5-5.0); Alkaline Phosphatase 79 U/L (38-126); Anion Gap 13 mmol/L; Blood Urea Nitrogen 24 mg/dL (9-20); Carbon Dioxide 18 mmol/L (22-30); Chloride 107 mmol/L (98-107); Glucose 148 mg/dL (74-99); Non-African American GFR(CKD) >90 (>60 ml/min/1.73 sqM); Phosphorus 7.4 mg/dL (2.5-4.5); Potassium 4.6 mmol/L (3.5-5.1); Sodium 138 mmol/L (137-145); Total Bilirubin 1.4 mg/dL (0.2-1.3); Total Protein 6.4 g/dL (6.3-8.2)
[2021-03-16 14:03] LABS: ABG HCO3 21 mmol/L (21-25); ABG Oxygen Saturation 99.7 % (94-97); ABG PCO2 38 mmHg (35-45); ABG PH 7.36 (7.35-7.45); ABG PO2 232 mmHg (83-108); ABG TCO2 23 mmol/L (19-24); Allen Test Performed? Yes
--- NOTE | 2021-03-16 14:29 | P.PN ---
Subjective Progress Note Date: 03/16/21 CHIEF COMPLAINT: Covid pneumonia HISTORY OF PRESENT ILLNESS: The patient is a 35 year old male with Covid pneumonia status post trach and PEG. Patient seen and examined this morning. Lying in bed comfortably. Denies any abdominal pain. He did report a bowel movement yesterday. Denies any nausea or vomiting. He is currently on trach collar. There was some minimal old blood around PEG tube site. Patient was found have evidence of pneumoperitoneum likely due to a small microperforation where the sutures have pulled through the stomach wall at the PEG tube site. PEG tube is currently at dependent drainage. Patient had 400 mL of gastric contents output. Afebrile WBC this morning was 12.7 repeat shows 19.8 hemoglobin 14.7 Patient seen and examined with Dr. Nicholson, who is covering for Dr. Vargas PHYSICAL EXAM: VITAL SIGNS: Reviewed. GENERAL: Well-developed in no acute distress. HEENT: No sclera icterus. Extraocular movements grossly intact. Moist buccal mucosa. Head is atraumatic, normocephalic. Trach site clean dry and intact ABDOMEN: Soft. Mildly distended nontender NEUROLOGIC: Intubated ASSESSMENT: 1. Pneumoperitoneum likely due to small microperforation where the sutures have pulled through the stomach wall at the PEG tube site 2. Acute hypoxic respiratory failure secondary to COVID-19 pneumonia with prolonged mechanical ventilation status post tracheostomy placement 3. Severe protein calorie malnutrition status post PEG tube placement 4. Ileus resolved PLAN: -Repeat abdominal x-ray in the morning -Continue to monitor patient closely -Continue PEG tube at dependent drainage -Keep patient nothing by mouth. Tube feedings on hold -No oral medications through PEG tube -Continue empiric antibiotics -Continue ICU management -Continue supportive care Physician Bilingual Secretary note has been reviewed by physician. Signing provider agrees with the documented findings, assessment, and plan of care. Objective - Vital Signs Vital signs: Vital Signs Temp 98 F 03/16/21 01:00 Pulse 94 03/16/21 07:00 Resp 50 H 03/16/21 07:00 BP 117/76 03/16/21 07:00 Pulse Ox 91 L 03/16/21 07:00 Intake & Output 03/15/21 03/16/21 03/16/21 18:59 06:59 18:59 Intake Total 365 330 12.87 Output Total 2050 1100 Balance -1685 -770 12.87 Weight 110 kg Intake: IV 70 130 Sodium Chloride 0.9% 1, 70 130 000 ml @ 10 mls/hr IV . Q24H [facility] Rx#:[id number] Intake, IV Titration 200 12.87 Amount Piperacillin-Tazobactam 3 200 .375 gm In Sodium Chloride 0.9% 100 ml @ 25 mls/hr IVPB Q8HR [facility] Rx# :[id number] propofoL 1,000 mg In 12.87 Empty Bag 1 bag @ Titrate IV .Q0M [facility]I Rx#: [id number] Tube Feeding 265 Other 30 Output: Gastric Drainage 240 Urine 2049 860 Other: Voiding Method Indwelling Catheter Indwelling Catheter # Bowel Movements 2 ABP, PAP, CO, CI - Last Documented Arterial Blood Pressure 102/72 - Labs CBC & Chem 7: 03/16/21 13:37 03/16/21 13:37 Labs: Abnormal Lab Results - Last 24 Hours (Table) 03/15/21 03/16/21 03/16/21 Range/Units 18:23 05:48 05:48 WBC 12.7 H (3.8-10.6) k/uL Neutrophils # (1.3-7.7) k/uL Lymphocytes # (1.0-4.8) k/uL D-Dimer 10.09 H (<0.60) mg/L FEU ABG pO2 (83-108) mmHg ABG O2 Saturation (94-97) % Carbon Dioxide (22-30) mmol/L BUN (9-20) mg/dL Glucose (74-99) mg/dL POC Glucose (mg/dL) 116 H (75-99) mg/dL Phosphorus (2.5-4.5) mg/dL Total Bilirubin (0.2-1.3) mg/dL ALT (4-49) U/L 03/16/21 03/16/21 03/16/21 Range/Units 05:48 13:37 13:37 WBC 19.8 H (3.8-10.6) k/uL Neutrophils # 17.6 H (1.3-7.7) k/uL Lymphocytes # 0.7 L (1.0-4.8) k/uL D-Dimer (<0.60) mg/L FEU ABG pO2 (83-108) mmHg ABG O2 Saturation (94-97) % Carbon Dioxide 18 L (22-30) mmol/L BUN 24 H (9-20) mg/dL Glucose 148 H (74-99) mg/dL POC Glucose (mg/dL) (75-99) mg/dL Phosphorus 7.4 H (2.5-4.5) mg/dL Total Bilirubin 1.8 H 1.4 H (0.2-1.3) mg/dL ALT 127 H 116 H (4-49) U/L 03/16/21 Range/Units 13:56 WBC (3.8-10.6) k/uL Neutrophils # (1.3-7.7) k/uL Lymphocytes # (1.0-4.8) k/uL D-Dimer (<0.60) mg/L FEU ABG pO2 232 H (83-108) mmHg ABG O2 Saturation 99.7 H (94-97) % Carbon Dioxide (22-30) mmol/L BUN (9-20) mg/dL Glucose (74-99) mg/dL POC Glucose (mg/dL) (75-99) mg/dL Phosphorus (2.5-4.5) mg/dL Total Bilirubin (0.2-1.3) mg/dL ALT (4-49) U/L Microbiology - Last 24 Hours (Table) 03/16/21 00:12 Sputum Culture - Preliminary Sputum
--- NOTE | 2021-03-16 17:08 | P.PN ---
Subjective Progress Note Date: 03/16/21 Osmar Drummond, is a 35-year-old male patient of Dr. Hdz, who presented to [facility] emergency room with a chief complaint of worsening shortness of breath and chest tightness. Patient was also having persistent cough his symptoms started 12 days ago however he had severe worsening of his symptoms in the last 3 days. He stated that last Saturday he was tested for COVID-19, results came back positive on Saturday. He was evaluated in the emergency room vital examination on presentation revealed a temperature of 103 pulse 92 respiration 18 blood pressure 124/77 pulse ox 92% on room air. White blood count was 4.2 hemoglobin 15.4 platelet count 161 sodium 125 potassium 3.9 chloride 88 calcium 7.8 BUN 8 creatinine 0.94 AST 98 ALT 57 LDH 1623 C-reactive protein 41.1 EKG done in the emergency room revealed normal sinus rhythm normal EKG, chest x-ray done in the emergency room revealed patchy bilateral infiltrates compatible with multifocal pneumonia no pneumothorax. Patient was admitted to medical floor pulmonary consultation was requested. On 02/25/2021 patient was seen and examined on the medical floor he is alert and oriented 3 in no distress, he is still complaining of cough and shortness of breath otherwise he denies any complaints there is no fever or chills no hea dache or dizziness no chest pain no nausea or vomiting no abdominal pain no diarrhea no blood in the stools no burning was urination no frequency or urgency and no hematuria. On 02/26/2021 patient was seen and examined on the medical floor he is alert and oriented 3 in no distress he seems to be worse today he is having more tachycardia and tachypnea, his temperature is 99.8 pulse ox is down to 82% on 15 L high flow cannula inflammatory markers are up his LDH is 1735 up from 1440 yesterday C-reactive protein is up to 7.2 up from 6 yesterday d-dimer is up to 1.21 up from 0.77 yesterday, at this time patient is maintained on inhaled bronchodilators, IV Decadron, subcu Lovenox,, repeat chest x-ray done today reveals by basilar infiltrates and opacities consistent with COVID-19 infection without any significant change from previous x-ray on 02/27/2021 patient was seen and examined on the medical floor, he is alert and oriented 3 in no apparent distress he is reporting some improvement in his shortness of breath, vital exam reveals a temperature of 99.1 pulse 102 respiration 20 blood pressure 121/84 pulse ox 87% on 15 L high flow cannula, white blood count is 6.2 hemoglobin 13.8 platelet count 262 d-dimer 1.51 sodium 127 potassium 4.0 chloride 94 CO2 25 BUN 13 creatinine 0.81 LDH 1969 C-reactive protein up to 8.9, patient is complaining of cough and shortness of breath otherwise he denies any complaints there is no fever or chills no headache or dizziness no chest pain no nausea or vomiting no abdominal pain no diarrhea no blood in the stools no burning with urination no frequency or urgency and no hematuria On 02/28/2021 patient was seen and examined on the medical floor he is alert and oriented 3 in no apparent distress, he is still maintained on Airvo with FiO2 of 90% his temperature is 98.7 pulse 116 respiration 28 blood pressure 145/81 pulse ox 93% he is complaining of shortness of breath and occasional cough otherwise he denies any complaints there is no fever or chills no headache or dizziness no chest pain no nausea or vomiting no abdominal pain no diarrhea no blood in the stools no burning with urination no frequency or urgency and no hematuria. On 03/01/2021 patient was seen and examined in the ICU he is intubated sedated maintained on mechanical ventilation air this morning patient was having worsening shortness of breath and decreased O2 sat duration despite Airvo, he was transferred to ICU and was intubated. Currently patient is on assist c ontrol tidal volume of 400 rate of 30 FiO2 100% and PEEP of 10 arterial blood gas reveals a pH of 7.24 pCO2 55 PO2 78 sodium is 127 LDH 2034 C-reactive protein 4.5 pulmonary are following closely On 03/02/2021 patient was seen and examined in the ICU he is intubated sedated maintained on mechanical ventilation air this morning patient was having worsening shortness of breath and decreased O2 sat duration despite Airvo, he was transferred to ICU and was intubated. Currently patient is on assist control tidal volume of 400 rate of 30 FiO2 100% and PEEP of 10 arterial blood gas reveals a pH of 7.24 pCO2 55 PO2 78 sodium is 127 LDH 203 C-reactive protein 4.5 pulmonary are following closely. Patient has evidence of ileus, he is maintained on NG tube to suction, surgical consultation was requested. On 03/03/2021 patient was seen and examined in the ICU he is intubated sedated maintained on mechanical ventilation air this morning patient was having worsening shortness of breath and decreased O2 sat duration despite Airvo, he was transferred to ICU and was intubated. Currently patient is on assist control tidal volume of 420 rate of 30 FiO2 85 % and PEEP of 16 arterial blood gas reveals a pH of 7.39 pCO2 55 PO2 66 sodium is 134 LDH 2034 C-reactive protein 4.5 pulmonary are following closely. Patient has evidence of ileus, he is maintained on NG tube to suction, surgical consultation was requested. On 03/04/2021 patient was seen and examined in the ICU he is intubated sedated maintained on mechanical ventilation air this morning patient was having worsening shortness of breath and decreased O2 sat duration despite Airvo, he was transferred to ICU and was intubated. Currently patient is on assist control tidal volume of 420 rate of 30 FiO2 85 % and PEEP of 16 arterial blood gas reveals a pH of 7.41 pCO2 53 PO2 89 sodium is 136 D-Dimer 2.0 pulmonary are following closely.\\ On 03/05/2021 patient was seen and examined in the ICU he is intubated sedated maintained on mechanical ventilation, patient is maintained on assist control tidal volume 42 rate of 30 FiO2 75% and PEEP at 16 arterial blood gas reveals a pH of 7.43 pCO2 48 and PO2 84 white blood count is 11.6 hemoglobin 11.3 platelet count 305 d-dimer 1.85 On 03/06/2021 patient was seen and examined in the ICU he is intubated sedated maintained on mechanical ventilation, patient is maintained on assist control tidal volume 420 rate of 30 FiO2 55% and PEEP at 12 arterial blood gas reveals a pH of 7.43 pCO2 49 and PO2 88 white blood count is 11.6 hemoglobin 11.9 platelet count 305 d-dimer 1.7 patient had a sedation holiday today he did well he was alert and following commands On 03/07/2021 patient was seen and examined in the ICU he is intubated sedated maintained on mechanical ventilation patient is maintained on assist control tidal volume 420 rate 32 FiO2 50% with a PEEP of 12 arterial blood gas reveals a pH of 7.44 pCO2 45 and PaO2 of 71 patient is having sedation holidays and is responding well at that time. On 03/08/2021, patient was seen and examined in the ICU he is intubated sedated maintained on mechanical ventilation, arterial blood gas Reveals a pH of 7.45 pCO2 44 PaO2 78 d-dimer 1.84, patient is maintained on assist control rate 32 tidal folium 420 FiO2 50% and a PEEP of 12 On 03/09/2021 patient was seen and examined in the ICU he is intubated sedated maintained on mechanical ventilation, he is scheduled for tracheostomy and PEG tube placement tomorrow, arterial blood gas reveals a pH of 7.4 to pCO2 48 PaO2 73 white blood count is 9.9 hemoglobin 11.6 platelet count 212 d-dimer is elevated at 3.4 On 03/10/2021, patient was seen and examined in the ICU he is intubated sedated maintained on mechanical ventilation, arterial blood gas Reveals a pH of 7.45 pCO2 44 PaO2 78 d-dimer 1.84, patient is maintained on assist control rate 32 tidal folium 420 FiO2 50% and a PEEP of 12 Patient is scheduled for tracheostomy and PEG tube placement today. On 03/11/2021 patient was seen and examined in the ICU he is intubated, sedated and maintained on mechanical ventilation, he underwent racheostomy and PEG tube placement yesterday, his vent setting patient is maintained on assist control rate of 32 tidal volume 420 FiO2 50% and PEEP of 10 ABG reveals pH 7.46 pCO2 41 PaO2 81 liver enzymes are slightly elevated was AST at 78 ALT at 265 On 03/12/2021 patient was seen and examined in the ICU he is intubated through tracheostom, he is alert responsive trying to answer questions, he is maintained on BiPAP, there is no fever or chills no headache or dizziness no chest pain no shortness of breath no palpitation no cough no nausea or vomiting no abdominal pain no diarrhea no blood in the stools no burning with urination no frequency or urgency and no hematuria, patient is improving gradually. On 03/13/2021 patient was seen and examined in the ICU he is intubated through tracheostomy, he is alert responsive. He is maintained on BiPAP, there is no fever or chills no headache or dizziness no chest pain no shortness of breath no palpitation no cough no nausea or vomiting no abdominal pain no diarrhea no blood in the stools no burning with urination no frequency or urgency and no hematuria, patient is improving gradually. He remains on Decadron 6 mg IV every 12 hours, and SQ Lovenox On 03/14/2021 patient was seen and examined in the ICU he is alert responsive in no apparent distress he is maintained on a trach collar at FiO2 50% vital exam reveals a temperature of 98.9 pulse 80 respiration 42 blood pressure 142/86 pulse ox 92% his white blood count is 15.2 hemoglobin 13.4 platelet count 192 d- dimer is up to 9.29 patient is maintained on IV Decadron and subcu Lovenox pulmonary are following closely On 03/15/2021 patient was seen and examined in the ICU he is alert responsive in no apparent distress he is maintained on a trach collar at FiO2 50% vital exam reveals a temperature of 98.9 pulse 80 respiration 42 blood pressure 142/86 pulse ox 92% his white blood count is 14.2 hemoglobin 14 platelet count 201 d- dimer is 8.7 patient is maintained on IV Decadron and subcu Lovenox pulmonary are following closely, surgery is following regarding ileus, CT scan of the abdomen ordered for today On 03/16/2021 patient was seen and examined in the ICU he is alert and responsive in no apparent distress he is maintained on oxygen through trach collar at 60%, patient has mild abdominal distention computed tomography scan of the abdomen was done and patient is followed by general surgery, vital examination today reveals a pulse of 94 respiration rate 50 blood pressure 117/76 and pulse ox 91% on trach collar. White blood count is 12.7 hemoglobin 14.3 platelet count 193 d-dimer 10.09 arterial blood gas reveals a pH of 7.36 pCO2 38 PaO2 232 glucose 148 AST 39 ALT 116 alkaline phosphatase 79 Objective - Vital Signs Vital signs: Vital Signs Temp 98 F 03/16/21 01:00 Pulse 94 03/16/21 07:00 Resp 50 H 03/16/21 07:00 BP 117/76 03/16/21 07:00 Pulse Ox 91 L 03/16/21 07:00 Intake & Output 03/15/21 03/16/21 03/16/21 18:59 06:59 18:59 Intake Total 365 330 Output Total 2049 1100 Balance -1685 -770 Weight 110 kg Intake: IV 70 130 Sodium Chloride 0.9% 1, 70 130 000 ml @ 10 mls/hr IV . Q24H TERI Rx#:[id number] Intake, IV Titration 200 Amount Piperacillin-Tazobactam 3 200 .375 gm In Sodium Chloride 0.9% 100 ml @ 25 mls/hr IVPB Q8HR TERI Rx# :[id number] Tube Feeding 265 Other 30 Output: Gastric Drainage 240 Urine 2050 860 Other: Voiding Method Indwelling Catheter Indwelling Catheter # Bowel Movements 2 ABP, PAP, CO, CI - Last Documented Arterial Blood Pressure 102/72 - Exam In general patient is intubated through tracheostomy, he is alert off sedation HEENT head normocephalic and atraumatic Neck is supple no JVD no goiter no lymphadenopathy Chest exam reveals a few scattered crackles no wheezing Cardiac exam reveals regular heart sounds no gallops no murmurs Abdomen is soft nontender no organomegaly with normal bowel sounds, slightly distended Extremity exam reveals no edema no cyanosis or clubbing Neurological examination reveals no gross focal deficit - Labs CBC & Chem 7: 03/16/21 13:37 03/16/21 13:37 Labs: Abnormal Lab Results - Last 24 Hours (Table) 03/15/21 03/15/21 03/16/21 Range/Units 03:00 18:23 05:48 WBC 12.7 H (3.8-10.6) k/uL D-Dimer (<0.60) mg/L FEU POC Glucose (mg/dL) 116 H (75-99) mg/dL Ferritin 902.1 H (22.0-322.0) ng/mL Total Bilirubin (0.2-1.3) mg/dL ALT (4-49) U/L 03/16/21 03/16/21 Range/Units 05:48 05:48 WBC (3.8-10.6) k/uL D-Dimer 10.09 H (<0.60) mg/L FEU POC Glucose (mg/dL) (75-99) mg/dL Ferritin (22.0-322.0) ng/mL Total Bilirubin 1.8 H (0.2-1.3) mg/dL ALT 127 H (4-49) U/L Assessment and Plan Plan: 1. Acute COVID-19 pneumonia patient started on IV Decadron and subcu Lovenox pulmonary consultation was requested, patient developed acute hypoxic respiratory failure requiring intubation and mechanical ventilation 2. Underlying history of asthma 3. Underlying history of morbid obesity 4. Hyponatremia, patient started on IV normal months leading 5. Elevated liver enzymes, will monitor closely 6. Abdominal distention, computed tomography scan of the abdomen and pelvis ordered surgical consultation requested patient is followed by Dr. Vargas At this time patient was seen and examined in the emergency room he was started on subcu Lovenox and IV dexamethasone, vitamin C and vitamin D and zinc supplements he was also started on inhaled bronchodilators patient will be admitted to medical floor pulmonary consultation was requested. Patient was seen by pulmonary he is maintained on oxygen supplements, IV Decadron, subcu Lovenox, patient has improved since yesterday
[2021-03-16] MEDS: CLEVIDIPINE BUTYRATE 25 MG in EMPTY BAG 1 BAG IV SCH (17:37)
[2021-03-16 18:05] LABS: Glucose,Whole Blood 138 mg/dL (75-99)
--- NOTE | 2021-03-16 19:25 | P.CNNES ---
History of Present Illness Consult date: 03/16/21 Requesting physician: Lauro Walter Reason for Consult: New seizures History of Present Illness: Patient is a 35-year-old male came to the hospital by ambulance on 02/24/2021 for shortness of breath. Patient has Covid-19 related pneumonia. Patient was intubated and on mechanical ventilation since 03/01/2021 and subsequently the patient failed to wean and failed to recover and patient required tracheostomy tube insertion and peg placement on 03/10/2021. Patient was recovering very well. Patient has been off sedation for the past 24 hours. Patient was doing very well, off ventilator on track collar for last 48 hours, almost ready to be transferred to long-term acute care facility. Patient was acting appropriately, communicating by texting and following commands. Patient at 11:30 AM today had a witnessed seizure, that lasted for about 30 seconds. He came out of it without any intervention. At 11:59 AM he has a second seizure, which lasted for about 40 seconds, but his eyes stayed deviated To the right side concerning for a seizure. Patient was given Ativan 4 mg. Afterwards his eyes were noted to be deviated to the right side. Patient was started on propofol, currently on propofol 40 mg. Patient was started on Keppra 1000 mg IV twice a day. Patient has not had any further seizures. Patient has tracheostomy, attached to the ventilator. No previous history of alcoholism or any history of seizures. Patient apparently has also free air under the diaphragm. Which was felt to be related to PEG insertion site. No evidence of acute abdomen. 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 Patient's blood test shows WBC 19.8 hemoglobin 14.7 platelets 28. PH 7.36, pCO2 38, pO2 232, and saturation 99.7. Patient's electrolytes are normal. BUN and creatinine normal. AST is normal, ALT is mildly elevated when 16. Patient's last hemoglobin A1c 5.1 on 01/02/2021. Review of Systems ROS unobtainable: due to endotracheal tube, due to mental status Past Medical History Past Medical History: Asthma Additional Past Medical History / Comment(s): Pt tested covid + on 02/18/21 at [facility] [place] [facility] [address]. Other hx: Exertional asthma History of Any Multi-Drug Resistant Organisms: None Reported Past Surgical History: No Surgical Hx Reported Past Anesthesia/Blood Transfusion Reactions: Unable to Obtain Additional Past Anesthesia/Blood Transfusion Reaction / Comment(s): Pt has never had surgery Past Psychological History: No Psychological Hx Reported Smoking Status: Never smoker Past Alcohol Use History: None Reported Past Drug Use History: None Reported - Past Family History Father Family Medical History: Myocardial Infarction (HI) Additional Family Medical History / Comment(s): Father had MIs. Mother Family Medical History: Cancer Additional Family Medical History / Comment(s): Mother had breast cancer. Medications and Allergies Home Medications Medication Instructions Recorded Confirmed Type No Known Home Medications 02/24/21 02/24/21 History Allergies Allergy/AdvReac Type Severity Reaction Status Date / Time No Known Allergies Allergy Verified 02/24/21 10:11 Physical Examination - Vital Signs Vital Signs: Vital Signs Temp Pulse Resp BP Pulse Ox 03/16/21 07:00 94 50 H 117/76 91 L 03/16/21 06:00 96 35 H 119/78 89 L 03/16/21 05:00 92 49 H 128/80 92 L 03/16/21 04:09 93 L 03/16/21 04:00 94 50 H 126/78 90 L 03/16/21 03:00 99 54 H 124/93 82 L 03/16/21 02:00 92 45 H 114/95 94 L 03/16/21 01:00 98 F 97 45 H 131/83 94 L 03/16/21 00:10 92 L 03/16/21 00:00 108 H 45 H 137/94 88 L 03/15/21 23:00 105 H 45 H 143/95 95 03/15/21 22:00 112 H 50 H 137/83 85 L 03/15/21 21:00 106 H 56 H 138/87 91 L 03/15/21 20:00 101 H 45 H 139/83 90 L 03/15/21 19:00 103 H 45 H 118/79 90 L 03/15/21 18:00 112 H 41 H 129/67 94 L 03/15/21 17:00 96 27 H 112/81 91 L 03/15/21 16:00 98.9 F 98 45 H 94/70 90 L 03/15/21 15:53 91 L 05/05/21 15:00 90 40 H 129/84 92 L Intake and Output 03/15/21 03/16/21 03/16/21 22:59 06:59 14:59 Intake Total 140 190 12.87 Output Total 975 625 Balance -835 -435 12. Intake: IV 40 90 Sodium Chloride 0.9% 1, 40 90 000 ml @ 10 mls/hr IV . Q24H TERI Rx#:[id number] Intake, IV Titration 100 100 12.87 Amount Piperacillin-Tazobactam 3 100 100 .375 gm In Sodium Chloride 0.9% 100 ml @ 25 mls/hr IVPB Q8HR TERI Rx# :[id number] propofoL 1,000 mg In 12.87 Empty Bag 1 bag @ Titrate IV .Q0M TERI Rx#: [id number] Output: Gastric Drainage 100 140 Urine 875 485 Other: Voiding Method Indwelling Catheter Indwelling Catheter Weight 110 kg On examination patient is a young male, who is sedated on propofol 40 g. He should also has received Ativan 4 mg IV earlier at around 12:15 PM after second seizure. Patient has tracheostomy, connected to the mechanical ventilator. Patient is breathing over the ventilator. No obvious seizure activity noted. Patient is sweating. Patient's gaze is up forwards, not able to assess the pupils. Because of the sweating, and use of gloves, could not elevate his upper eyelids all the way to check for the pupils. Gaze in the midline but upwards. Oculocephalics also difficult to assess. Corneals slightly present. No obvious seizure activity. Reflexes are diminished to absent and plantars are flat. Muscle strength cannot be checked. Results - Laboratory Findings CBC and BMP: 03/16/21 13:37 03/16/21 13:37 Abnormal Lab Findings: Abnormal Labs 02/24/21 02/24/21 02/24/21 10:11 10:11 17:17 WBC RBC Hgb Hct RDW Plt Count Neutrophils # Neutrophils # (Manual) Lymphocytes # 0.6 L Lymphocytes # (Manual) Metamyelocytes # (Man) APTT Fibrinogen D-Dimer 0.75 H ABG pH ABG pCO2 ABG pO2 ABG HCO3 ABG Total CO2 ABG O2 Saturation Sodium 125 L Chloride 88 L Carbon Dioxide BUN 8 L Creatinine Glucose POC Glucose (mg/dL) Calcium 7.8 L Phosphorus Magnesium Ferritin 2011.5 H Total Bilirubin AST 98 H ALT 57 H Lactate Dehydrogenase 1623 H LD Isoenzymes LD 1 LD 4 LD 5 C-Reactive Protein 41.1 H Total Protein Albumin Procalcitonin Ur Specific [place] Urine Protein Urine Ketones Urine Blood Urine RBC Urine WBC Urine Mucus 02/25/21 02/25/21 02/25/21 10:10 10:10 10:10 WBC RBC Hgb Hct RDW Plt Count Neutrophils # Neutrophils # (Manual) Lymphocytes # 0.6 L Lymphocytes # (Manual) Metamyelocytes # (Man) APTT Fibrinogen D-Dimer 0.77 H ABG pH ABG pCO2 ABG pO2 ABG HCO3 ABG Total CO2 ABG O2 Saturation Sodium 129 L Chloride 94 L Carbon Dioxide BUN Creatinine Glucose 124 H POC Glucose (mg/dL) Calcium 8.0 L Phosphorus Magnesium Ferritin Total Bilirubin AST 77 H ALT Lactate Dehydrogenase 1440 H LD Isoenzymes LD 1 LD 4 LD 5 C-Reactive Protein 6.0 H Total Protein 6.2 L Albumin 3.4 L Procalcitonin Ur Specific [place] Urine Protein Urine Ketones Urine Blood Urine RBC Urine WBC Urine Mucus 02/26/21 02/26/21 02/26/21 10:58 10:58 10:58 WBC RBC Hgb Hct RDW Plt Count Neutrophils # Neutrophils # (Manual) Lymphocytes # 0.5 L Lymphocytes # (Manual) Metamyelocytes # (Man) APTT Fibrinogen D-Dimer 1.21 H ABG pH ABG pCO2 ABG pO2 ABG HCO3 ABG Total CO2 ABG O2 Saturation Sodium 126 L Chloride 93 L Carbon Dioxide BUN Creatinine Glucose 113 H POC Glucose (mg/dL) Calcium 8.0 L Phosphorus Magnesium Ferritin Total Bilirubin AST 76 H ALT Lactate Dehydrogenase 1735 H LD Isoenzymes LD 1 LD 4 LD 5 C-Reactive Protein 7.2 H Total Protein 6.2 L Albumin 3.3 L Procalcitonin Ur Specific [place] Urine Protein Urine Ketones Urine Blood Urine RBC Urine WBC Urine Mucus 02/27/21 02/27/21 02/27/21 07:48 07:48 07:48 WBC RBC Hgb Hct RDW Plt Count Neutrophils # Neutrophils # (Manual) Lymphocytes # 0.6 L Lymphocytes # (Manual) Metamyelocytes # (Man) APTT Fibrinogen D-Dimer 1.51 H ABG pH ABG pCO2 ABG pO2 ABG HCO3 ABG Total CO2 ABG O2 Saturation Sodium 127 L Chloride 94 L Carbon Dioxide BUN Creatinine Glucose 106 H POC Glucose (mg/dL) Calcium 7.8 L Phosphorus Magnesium Ferritin Total Bilirubin AST 69 H ALT Lactate Dehydrogenase 1969 H LD Isoenzymes LD 1 LD 4 LD 5 C-Reactive Protein 8.9 H Total Protein 5.9 L Albumin 3.1 L Procalcitonin Ur Specific [place] Urine Protein Urine Ketones Urine Blood Urine RBC Urine WBC Urine Mucus 02/28/21 03/01/21 03/01/21 08:26 07:40 07:40 WBC 19.9 H RBC Hgb Hct RDW Plt Count 515 H Neutrophils # 17.4 H Neutrophils # (Manual) Lymphocytes # Lymphocytes # (Manual) Metamyelocytes # (Man) APTT Fibrinogen D-Dimer 4.62 H ABG pH ABG pCO2 ABG pO2 ABG HCO3 ABG Total CO2 ABG O2 Saturation Sodium 127 L Chloride 95 L Carbon Dioxide BUN 23 H Creatinine Glucose 149 H POC Glucose (mg/dL) Calcium 8.2 L Phosphorus Magnesium Ferritin Total Bilirubin AST ALT Lactate Dehydrogenase 2035 H LD Isoenzymes LD 1 LD 4 LD 5 C-Reactive Protein 4.5 H Total Protein Albumin 3.4 L Procalcitonin Ur Specific [place] Urine Protein Urine Ketones Urine Blood Urine RBC Urine WBC Urine Mucus 03/01/21 03/01/21 03/01/21 08:18 09:42 11:08 WBC RBC Hgb Hct RDW Plt Count Neutrophils # Neutrophils # (Manual) Lymphocytes # Lymphocytes # (Manual) Metamyelocytes # (Man) APTT Fibrinogen D-Dimer ABG pH 7.24 L 7.33 L ABG pCO2 55 H 52 H ABG pO2 78 L 59 L* ABG HCO3 27 H ABG Total CO2 25 H 29 H ABG O2 Saturation 91.5 L 87.6 L Sodium Chloride Carbon Dioxide BUN Creatinine Glucose POC Glucose (mg/dL) 147 H Calcium Phosphorus Magnesium Ferritin Total Bilirubin AST ALT Lactate Dehydrogenase LD Isoenzymes LD 1 LD 4 LD 5 C-Reactive Protein Total Protein Albumin Procalcitonin Ur Specific [place] Urine Protein Urine Ketones Urine Blood Urine RBC Urine WBC Urine Mucus 03/01/21 03/01/21 03/02/21 12:48 18:02 00:27 WBC RBC Hgb Hct RDW Plt Count Neutrophils # Neutrophils # (Manual) Lymphocytes # Lymphocytes # (Manual) Metamyelocytes # (Man) APTT Fibrinogen D-Dimer ABG pH 7.23 L ABG pCO2 60 H ABG pO2 66 L ABG HCO3 ABG Total CO2 27 H ABG O2 Saturation 87.2 L Sodium Chloride Carbon Dioxide BUN Creatinine Glucose POC Glucose (mg/dL) 137 H 150 H Calcium Phosphorus Magnesium Ferritin Total Bilirubin AST ALT Lactate Dehydrogenase LD Isoenzymes LD 1 LD 4 LD 5 C-Reactive Protein Total Protein Albumin Procalcitonin Ur Specific [place] Urine Protein Urine Ketones Urine Blood Urine RBC Urine WBC Urine Mucus 03/02/21 03/02/21 03/02/21 04:40 04:40 05:45 WBC 15.0 H RBC Hgb Hct RDW Plt Count Neutrophils # Neutrophils # (Manual) 14.20 H Lymphocytes # Lymphocytes # (Manual) 0.30 L Metamyelocytes # (Man) 0.15 H APTT Fibrinogen D-Dimer ABG pH ABG pCO2 ABG pO2 ABG HCO3 ABG Total CO2 ABG O2 Saturation Sodium 131 L Chloride Carbon Dioxide BUN Creatinine Glucose 153 H POC Glucose (mg/dL) 155 H Calcium 7.7 L Phosphorus Magnesium 2.7 H Ferritin Total Bilirubin AST ALT Lactate Dehydrogenase 1221 H LD Isoenzymes LD 1 LD 4 LD 5 C-Reactive Protein 5.4 H Total Protein 5.2 L Albumin 2.6 L Procalcitonin Ur Specific [place] Urine Protein Urine Ketones Urine Blood Urine RBC Urine WBC Urine Mucus 03/02/21 03/02/21 03/02/21 05:50 08:04 09:45 WBC RBC Hgb Hct RDW Plt Count Neutrophils # Neutrophils # (Manual) Lymphocytes # Lymphocytes # (Manual) Metamyelocytes # (Man) APTT Fibrinogen D-Dimer 1.81 H ABG pH 7.31 L ABG pCO2 59 H ABG pO2 ABG HCO3 30 H ABG Total CO2 32 H ABG O2 Saturation Sodium Chloride Carbon Dioxide BUN Creatinine Glucose POC Glucose (mg/dL) 150 H Calcium Phosphorus Magnesium Ferritin Total Bilirubin AST ALT Lactate Dehydrogenase LD Isoenzymes LD 1 LD 4 LD 5 C-Reactive Protein Total Protein Albumin Procalcitonin Ur Specific [place] Urine Protein Urine Ketones Urine Blood Urine RBC Urine WBC Urine Mucus 03/02/21 03/02/21 03/02/21 09:45 11:05 11:48 WBC RBC Hgb Hct RDW Plt Count Neutrophils # Neutrophils # (Manual) Lymphocytes # Lymphocytes # (Manual) Metamyelocytes # (Man) APTT Fibrinogen D-Dimer ABG pH ABG pCO2 ABG pO2 ABG HCO3 ABG Total CO2 ABG O2 Saturation Sodium Chloride Carbon Dioxide BUN Creatinine Glucose POC Glucose (mg/dL) 150 H Calcium Phosphorus Magnesium Ferritin Total Bilirubin AST ALT Lactate Dehydrogenase LD Isoenzymes LD 1 LD 4 LD 5 C-Reactive Protein Total Protein Albumin Procalcitonin 1.34 H Ur Specific [place] 1.036 H Urine Protein Trace H Urine Ketones Trace H Urine Blood Small H Urine RBC 148 H Urine WBC 8 H Urine Mucus Rare H 03/02/21 03/03/21 03/03/21 17:47 01:10 04:15 WBC RBC Hgb Hct RDW Plt Count Neutrophils # Neutrophils # (Manual) Lymphocytes # Lymphocytes # (Manual) Metamyelocytes # (Man) APTT Fibrinogen D-Dimer ABG pH ABG pCO2 ABG pO2 ABG HCO3 ABG Total CO2 ABG O2 Saturation Sodium 134 L Chloride Carbon Dioxide 31 H BUN Creatinine Glucose 113 H POC Glucose (mg/dL) 123 H 126 H Calcium 7.4 L Phosphorus Magnesium Ferritin 850.0 H Total Bilirubin AST ALT Lactate Dehydrogenase 1034 H LD Isoenzymes LD 1 LD 4 LD 5 C-Reactive Protein 2.8 H Total Protein 5.0 L Albumin 2.6 L Procalcitonin Ur Specific [place] Urine Protein Urine Ketones Urine Blood Urine RBC Urine WBC Urine Mucus 03/03/21 03/03/21 03/03/21 04:15 05:37 05:39 WBC 15.3 H RBC 4.28 L Hgb 12.2 L Hct 38.2 L RDW Plt Count Neutrophils # 14.3 H Neutrophils # (Manual) Lymphocytes # 0.6 L Lymphocytes # (Manual) Metamyelocytes # (Man) APTT Fibrinogen D-Dimer ABG pH ABG pCO2 55 H ABG pO2 66 L ABG HCO3 33 H ABG Total CO2 35 H ABG O2 Saturation 93.2 L Sodium Chloride Carbon Dioxide BUN Creatinine Glucose POC Glucose (mg/dL) 113 H Calcium Phosphorus Magnesium Ferritin Total Bilirubin AST ALT Lactate Dehydrogenase LD Isoenzymes LD 1 LD 4 LD 5 C-Reactive Protein Total Protein Albumin Procalcitonin Ur Specific [place] Urine Protein Urine Ketones Urine Blood Urine RBC Urine WBC Urine Mucus 03/03/21 03/04/21 03/04/21 12:08 00:02 05:30 WBC RBC Hgb Hct RDW Plt Count Neutrophils # Neutrophils # (Manual) Lymphocytes # Lymphocytes # (Manual) Metamyelocytes # (Man) APTT Fibrinogen D-Dimer ABG pH ABG pCO2 ABG pO2 ABG HCO3 ABG Total CO2 ABG O2 Saturation Sodium 136 L Chloride Carbon Dioxide 34 H BUN Creatinine Glucose POC Glucose (mg/dL) 112 H 109 H Calcium 7.4 L Phosphorus Magnesium Ferritin Total Bilirubin AST ALT Lactate Dehydrogenase LD Isoenzymes LD 1 LD 4 LD 5 C-Reactive Protein Total Protein 4.9 L Albumin 2.5 L Procalcitonin Ur Specific [place] Urine Protein Urine Ketones Urine Blood Urine RBC Urine WBC Urine Mucus 03/04/21 03/04/21 03/04/21 05:30 05:30 05:30 WBC 11.9 H RBC 3.85 L Hgb 11.7 L Hct 34.2 L RDW Plt Count Neutrophils # 10.5 H Neutrophils # (Manual) Lymphocytes # 0.8 L Lymphocytes # (Manual) Metamyelocytes # (Man) APTT Fibrinogen D-Dimer 2.00 H ABG pH ABG pCO2 ABG pO2 ABG HCO3 ABG Total CO2 ABG O2 Saturation Sodium Chloride Carbon Dioxide BUN Creatinine Glucose POC Glucose (mg/dL) Calcium Phosphorus Magnesium Ferritin Total Bilirubin AST ALT Lactate Dehydrogenase 951 H LD Isoenzymes LD 1 LD 4 LD 5 C-Reactive Protein 1.6 H Total Protein Albumin Procalcitonin Ur Specific [place] Urine Protein Urine Ketones Urine Blood Urine RBC Urine WBC Urine Mucus 03/04/21 03/05/21 03/05/21 05:30 04:00 04:00 WBC 11.6 H RBC 3.88 L Hgb 11.3 L Hct 34.6 L RDW Plt Count Neutrophils # 10.2 H Neutrophils # (Manual) Lymphocytes # Lymphocytes # (Manual) Metamyelocytes # (Man) APTT Fibrinogen D-Dimer ABG pH ABG pCO2 53 H ABG pO2 ABG HCO3 34 H ABG Total CO2 35 H ABG O2 Saturation 97.3 H Sodium 134 L Chloride Carbon Dioxide 31 H BUN Creatinine Glucose POC Glucose (mg/dL) Calcium 7.5 L Phosphorus Magnesium Ferritin Total Bilirubin AST ALT Lactate Dehydrogenase 1034 H LD Isoenzymes LD 1 LD 4 LD 5 C-Reactive Protein 1.2 H Total Protein Albumin Procalcitonin Ur Specific [place] Urine Protein Urine Ketones Urine Blood Urine RBC Urine WBC Urine Mucus 03/05/21 03/05/21 03/05/21 04:00 05:55 17:15 WBC RBC Hgb Hct RDW Plt Count Neutrophils # Neutrophils # (Manual) Lymphocytes # Lymphocytes # (Manual) Metamyelocytes # (Man) APTT Fibrinogen D-Dimer 1.85 H ABG pH ABG pCO2 48 H ABG pO2 82 L ABG HCO3 32 H ABG Total CO2 33 H ABG O2 Saturation Sodium Chloride Carbon Dioxide BUN Creatinine Glucose POC Glucose (mg/dL) 116 H Calcium Phosphorus Magnesium Ferritin Total Bilirubin AST ALT Lactate Dehydrogenase LD Isoenzymes LD 1 LD 4 LD 5 C-Reactive Protein Total Protein Albumin Procalcitonin Ur Specific [place] Urine Protein Urine Ketones Urine Blood Urine RBC Urine WBC Urine Mucus 03/06/21 03/06/21 03/06/21 04:30 04:30 04:30 WBC 11.9 H RBC 4.04 L Hgb 11.4 L Hct 36.0 L RDW Plt Count Neutrophils # 10.5 H Neutrophils # (Manual) Lymphocytes # Lymphocytes # (Manual) Metamyelocytes # (Man) APTT Fibrinogen D-Dimer 1.70 H ABG pH ABG pCO2 ABG pO2 ABG HCO3 ABG Total CO2 ABG O2 Saturation Sodium 133 L Chloride Carbon Dioxide 31 H BUN 21 H Creatinine 0.63 L Glucose 105 H POC Glucose (mg/dL) Calcium 7.6 L Phosphorus Magnesium Ferritin Total Bilirubin AST ALT Lactate Dehydrogenase 938 H LD Isoenzymes LD 1 LD 4 LD 5 C-Reactive Protein Total Protein Albumin Procalcitonin Ur Specific [place] Urine Protein Urine Ketones Urine Blood Urine RBC Urine WBC Urine Mucus 03/06/21 03/06/21 03/06/21 05:23 12:09 23:48 WBC RBC Hgb Hct RDW Plt Count Neutrophils # Neutrophils # (Manual) Lymphocytes # Lymphocytes # (Manual) Metamyelocytes # (Man) APTT Fibrinogen D-Dimer ABG pH ABG pCO2 49 H ABG pO2 ABG HCO3 32 H ABG Total CO2 34 H ABG O2 Saturation Sodium Chloride Carbon Dioxide BUN Creatinine Glucose POC Glucose (mg/dL) 129 H 114 H Calcium Phosphorus Magnesium Ferritin Total Bilirubin AST ALT Lactate Dehydrogenase LD Isoenzymes LD 1 LD 4 LD 5 C-Reactive Protein Total Protein Albumin Procalcitonin Ur Specific [place] Urine Protein Urine Ketones Urine Blood Urine RBC Urine WBC Urine Mucus 03/07/21 03/07/21 03/07/21 04:25 04:25 04:25 WBC RBC 3.74 L Hgb 11.4 L Hct 33.1 L RDW Plt Count Neutrophils # 8.4 H Neutrophils # (Manual) Lymphocytes # 0.8 L Lymphocytes # (Manual) Metamyelocytes # (Man) APTT Fibrinogen D-Dimer 1.73 H ABG pH ABG pCO2 ABG pO2 ABG HCO3 ABG Total CO2 ABG O2 Saturation Sodium 131 L Chloride Carbon Dioxide BUN Creatinine 0.56 L Glucose 109 H POC Glucose (mg/dL) Calcium 7.8 L Phosphorus Magnesium Ferritin Total Bilirubin AST ALT Lactate Dehydrogenase 895 H LD Isoenzymes LD 1 LD 4 LD 5 C-Reactive Protein Total Protein Albumin Procalcitonin Ur Specific [place] Urine Protein Urine Ketones Urine Blood Urine RBC Urine WBC Urine Mucus 03/07/21 03/07/21 03/07/21 04:52 05:26 11:36 WBC RBC Hgb Hct RDW Plt Count Neutrophils # Neutrophils # (Manual) Lymphocytes # Lymphocytes # (Manual) Metamyelocytes # (Man) APTT Fibrinogen D-Dimer ABG pH ABG pCO2 ABG pO2 71 L ABG HCO3 31 H ABG Total CO2 32 H ABG O2 Saturation Sodium Chloride Carbon Dioxide BUN Creatinine Glucose POC Glucose (mg/dL) 130 H 127 H Calcium Phosphorus Magnesium Ferritin Total Bilirubin AST ALT Lactate Dehydrogenase LD Isoenzymes LD 1 LD 4 LD 5 C-Reactive Protein Total Protein Albumin Procalcitonin Ur Specific [place] Urine Protein Urine Ketones Urine Blood Urine RBC Urine WBC Urine Mucus 03/07/21 03/08/21 03/08/21 17:40 04:00 04:00 WBC RBC 3.75 L Hgb 11.5 L Hct 33.1 L RDW Plt Count Neutrophils # Neutrophils # (Manual) Lymphocytes # Lymphocytes # (Manual) Metamyelocytes # (Man) APTT Fibrinogen D-Dimer 1.84 H ABG pH ABG pCO2 ABG pO2 ABG HCO3 ABG Total CO2 ABG O2 Saturation Sodium Chloride Carbon Dioxide BUN Creatinine Glucose POC Glucose (mg/dL) 130 H Calcium Phosphorus Magnesium Ferritin Total Bilirubin AST ALT Lactate Dehydrogenase LD Isoenzymes LD 1 LD 4 LD 5 C-Reactive Protein Total Protein Albumin Procalcitonin Ur Specific [place] Urine Protein Urine Ketones Urine Blood Urine RBC Urine WBC Urine Mucus 03/08/21 03/08/21 03/08/21 04:00 05:13 11:48 WBC RBC Hgb Hct RDW Plt Count Neutrophils # Neutrophils # (Manual) Lymphocytes # Lymphocytes # (Manual) Metamyelocytes # (Man) APTT Fibrinogen D-Dimer ABG pH ABG pCO2 ABG pO2 78 L ABG HCO3 30 H ABG Total CO2 32 H ABG O2 Saturation Sodium 136 L Chloride Carbon Dioxide 31 H BUN Creatinine 0.52 L Glucose 115 H POC Glucose (mg/dL) 128 H Calcium 7.9 L Phosphorus Magnesium Ferritin Total Bilirubin AST ALT Lactate Dehydrogenase 902 H LD Isoenzymes LD 1 LD 4 LD 5 C-Reactive Protein Total Protein Albumin Procalcitonin Ur Specific [place] Urine Protein Urine Ketones Urine Blood Urine RBC Urine WBC Urine Mucus 03/08/21 03/08/21 03/08/21 12:07 17:37 23:44 WBC RBC Hgb Hct RDW Plt Count Neutrophils # Neutrophils # (Manual) Lymphocytes # Lymphocytes # (Manual) Metamyelocytes # (Man) APTT Fibrinogen D-Dimer ABG pH ABG pCO2 ABG pO2 ABG HCO3 ABG Total CO2 ABG O2 Saturation Sodium Chloride Carbon Dioxide BUN Creatinine Glucose POC Glucose (mg/dL) 132 H 129 H 123 H Calcium Phosphorus Magnesium Ferritin Total Bilirubin AST ALT Lactate Dehydrogenase LD Isoenzymes LD 1 LD 4 LD 5 C-Reactive Protein Total Protein Albumin Procalcitonin Ur Specific [place] Urine Protein Urine Ketones Urine Blood Urine RBC Urine WBC Urine Mucus 03/09/21 03/09/21 03/09/21 04:57 05:25 05:25 WBC RBC 4.05 L Hgb 11.6 L Hct 36.2 L RDW Plt Count Neutrophils # 8.2 H Neutrophils # (Manual) Lymphocytes # Lymphocytes # (Manual) Metamyelocytes # (Man) APTT Fibrinogen D-Dimer 3.40 H ABG pH ABG pCO2 48 H ABG pO2 73 L ABG HCO3 31 H ABG Total CO2 32 H ABG O2 Saturation Sodium Chloride Carbon Dioxide BUN Creatinine Glucose POC Glucose (mg/dL) Calcium Phosphorus Magnesium Ferritin Total Bilirubin AST ALT Lactate Dehydrogenase LD Isoenzymes LD 1 LD 4 LD 5 C-Reactive Protein Total Protein Albumin Procalcitonin Ur Specific [place] Urine Protein Urine Ketones Urine Blood Urine RBC Urine WBC Urine Mucus 03/09/21 03/09/21 03/09/21 05:25 05:25 06:13 WBC RBC Hgb Hct RDW Plt Count Neutrophils # Neutrophils # (Manual) Lymphocytes # Lymphocytes # (Manual) Metamyelocytes # (Man) APTT Fibrinogen D-Dimer ABG pH ABG pCO2 ABG pO2 ABG HCO3 ABG Total CO2 ABG O2 Saturation Sodium Chloride Carbon Dioxide 31 H BUN Creatinine 0.49 L Glucose 112 H POC Glucose (mg/dL) 105 H Calcium 8.2 L Phosphorus Magnesium Ferritin 1351.1 H Total Bilirubin AST 84 H ALT 230 H Lactate Dehydrogenase LD Isoenzymes 307 H LD 1 15 L LD 4 13 H LD 5 17 H C-Reactive Protein Total Protein 4.9 L Albumin 2.7 L Procalcitonin Ur Specific [place] Urine Protein Urine Ketones Urine Blood Urine RBC Urine WBC Urine Mucus 03/09/21 03/09/21 03/10/21 11:51 18:04 00:27 WBC RBC Hgb Hct RDW Plt Count Neutrophils # Neutrophils # (Manual) Lymphocytes # Lymphocytes # (Manual) Metamyelocytes # (Man) APTT Fibrinogen D-Dimer ABG pH ABG pCO2 ABG pO2 ABG HCO3 ABG Total CO2 ABG O2 Saturation Sodium Chloride Carbon Dioxide BUN Creatinine Glucose POC Glucose (mg/dL) 125 H 111 H 113 H Calcium Phosphorus Magnesium Ferritin Total Bilirubin AST ALT Lactate Dehydrogenase LD Isoenzymes LD 1 LD 4 LD 5 C-Reactive Protein Total Protein Albumin Procalcitonin Ur Specific [place] Urine Protein Urine Ketones Urine Blood Urine RBC Urine WBC Urine Mucus 03/10/21 03/10/21 03/10/21 05:07 05:10 05:10 WBC RBC 3.81 L Hgb 11.5 L Hct 33.7 L RDW Plt Count Neutrophils # 8.5 H Neutrophils # (Manual) Lymphocytes # Lymphocytes # (Manual) Metamyelocytes # (Man) APTT Fibrinogen D-Dimer ABG pH 7.46 H ABG pCO2 ABG pO2 66 L ABG HCO3 31 H ABG Total CO2 32 H ABG O2 Saturation 93.2 L Sodium Chloride Carbon Dioxide BUN Creatinine 0.57 L Glucose 107 H POC Glucose (mg/dL) Calcium Phosphorus Magnesium Ferritin 1230.7 H Total Bilirubin AST 77 H ALT 263 H Lactate Dehydrogenase LD Isoenzymes LD 1 LD 4 LD 5 C-Reactive Protein Total Protein 5.0 L Albumin 2.8 L Procalcitonin Ur Specific [place] Urine Protein Urine Ketones Urine Blood Urine RBC Urine WBC Urine Mucus 03/10/21 03/10/21 03/10/21 05:10 06:05 12:12 WBC RBC Hgb Hct RDW Plt Count Neutrophils # Neutrophils # (Manual) Lymphocytes # Lymphocytes # (Manual) Metamyelocytes # (Man) APTT 19.2 L Fibrinogen 156 L D-Dimer 4.93 H ABG pH ABG pCO2 ABG pO2 ABG HCO3 ABG Total CO2 ABG O2 Saturation Sodium Chloride Carbon Dioxide BUN Creatinine Glucose POC Glucose (mg/dL) 108 H 109 H Calcium Phosphorus Magnesium Ferritin Total Bilirubin AST ALT Lactate Dehydrogenase LD Isoenzymes LD 1 LD 4 LD 5 C-Reactive Protein Total Protein Albumin Procalcitonin Ur Specific [place] Urine Protein Urine Ketones Urine Blood Urine RBC Urine WBC Urine Mucus 03/10/21 03/11/21 03/11/21 23:22 04:05 04:05 WBC 12.7 H RBC 3.83 L Hgb 11.3 L Hct 34.3 L RDW Plt Count Neutrophils # Neutrophils # (Manual) Lymphocytes # Lymphocytes # (Manual) Metamyelocytes # (Man) APTT Fibrinogen D-Dimer ABG pH ABG pCO2 ABG pO2 ABG HCO3 ABG Total CO2 ABG O2 Saturation Sodium 136 L Chloride Carbon Dioxide BUN Creatinine 0.64 L Glucose 103 H POC Glucose (mg/dL) 100 H Calcium 8.3 L Phosphorus Magnesium Ferritin 1355.4 H Total Bilirubin AST 78 H ALT 265 H Lactate Dehydrogenase 775 H LD Isoenzymes LD 1 LD 4 LD 5 C-Reactive Protein Total Protein 5.0 L Albumin 2.8 L Procalcitonin Ur Specific [place] Urine Protein Urine Ketones Urine Blood Urine RBC Urine WBC Urine Mucus 03/11/21 03/11/21 03/11/21 05:25 11:46 23:46 WBC RBC Hgb Hct RDW Plt Count Neutrophils # Neutrophils # (Manual) Lymphocytes # Lymphocytes # (Manual) Metamyelocytes # (Man) APTT Fibrinogen D-Dimer ABG pH 7.46 H ABG pCO2 ABG pO2 81 L ABG HCO3 30 H ABG Total CO2 31 H ABG O2 Saturation Sodium Chloride Carbon Dioxide BUN Creatinine Glucose POC Glucose (mg/dL) 101 H 107 H Calcium Phosphorus Magnesium Ferritin Total Bilirubin AST ALT Lactate Dehydrogenase LD Isoenzymes LD 1 LD 4 LD 5 C-Reactive Protein Total Protein Albumin Procalcitonin Ur Specific [place] Urine Protein Urine Ketones Urine Blood Urine RBC Urine WBC Urine Mucus 03/12/21 03/12/21 03/12/21 04:15 04:15 04:15 WBC 14.7 H RBC 3.87 L Hgb 11.7 L Hct 34.4 L RDW Plt Count Neutrophils # Neutrophils # (Manual) Lymphocytes # Lymphocytes # (Manual) Metamyelocytes # (Man) APTT Fibrinogen D-Dimer 7.59 H ABG pH ABG pCO2 ABG pO2 ABG HCO3 ABG Total CO2 ABG O2 Saturation Sodium 135 L Chloride Carbon Dioxide BUN Creatinine 0.59 L Glucose 103 H POC Glucose (mg/dL) Calcium Phosphorus Magnesium Ferritin Total Bilirubin AST ALT Lactate Dehydrogenase 775 H LD Isoenzymes LD 1 LD 4 LD 5 C-Reactive Protein Total Protein Albumin Procalcitonin Ur Specific [place] Urine Protein Urine Ketones Urine Blood Urine RBC Urine WBC Urine Mucus 03/12/21 03/12/21 03/12/21 05:53 06:00 11:55 WBC RBC Hgb Hct RDW Plt Count Neutrophils # Neutrophils # (Manual) Lymphocytes # Lymphocytes # (Manual) Metamyelocytes # (Man) APTT Fibrinogen D-Dimer ABG pH 7.48 H ABG pCO2 ABG pO2 ABG HCO3 29 H ABG Total CO2 30 H ABG O2 Saturation Sodium Chloride Carbon Dioxide BUN Creatinine Glucose POC Glucose (mg/dL) 100 H 133 H Calcium Phosphorus Magnesium Ferritin Total Bilirubin AST ALT Lactate Dehydrogenase LD Isoenzymes LD 1 LD 4 LD 5 C-Reactive Protein Total Protein Albumin Procalcitonin Ur Specific [place] Urine Protein Urine Ketones Urine Blood Urine RBC Urine WBC Urine Mucus 03/12/21 03/13/21 03/13/21 18:01 03:50 03:50 WBC 11.9 H RBC 3.94 L Hgb 12.1 L Hct 35.0 L RDW Plt Count Neutrophils # 10.7 H Neutrophils # (Manual) Lymphocytes # 0.7 L Lymphocytes # (Manual) Metamyelocytes # (Man) APTT Fibrinogen D-Dimer ABG pH ABG pCO2 ABG pO2 ABG HCO3 ABG Total CO2 ABG O2 Saturation Sodium 133 L Chloride Carbon Dioxide BUN Creatinine 0.48 L Glucose 121 H POC Glucose (mg/dL) 105 H Calcium Phosphorus Magnesium Ferritin 1066.7 H Total Bilirubin AST ALT 203 H Lactate Dehydrogenase 686 H LD Isoenzymes LD 1 LD 4 LD 5 C-Reactive Protein Total Protein 5.5 L Albumin 3.1 L Procalcitonin Ur Specific [place] Urine Protein Urine Ketones Urine Blood Urine RBC Urine WBC Urine Mucus 03/13/21 03/13/21 03/14/21 03:50 17:47 04:32 WBC RBC Hgb Hct RDW Plt Count Neutrophils # Neutrophils # (Manual) Lymphocytes # Lymphocytes # (Manual) Metamyelocytes # (Man) APTT Fibrinogen D-Dimer 7.38 H ABG pH ABG pCO2 ABG pO2 ABG HCO3 ABG Total CO2 ABG O2 Saturation Sodium Chloride Carbon Dioxide BUN Creatinine Glucose POC Glucose (mg/dL) 107 H Calcium Phosphorus Magnesium Ferritin 1277.7 H Total Bilirubin AST 64 H ALT 194 H Lactate Dehydrogenase 1059 H LD Isoenzymes LD 1 LD 4 LD 5 C-Reactive Protein Total Protein 5.9 L Albumin Procalcitonin Ur Specific [place] Urine Protein Urine Ketones Urine Blood Urine RBC Urine WBC Urine Mucus 03/14/21 03/14/21 03/14/21 04:32 04:32 11:58 WBC 15.2 H RBC Hgb Hct RDW Plt Count Neutrophils # Neutrophils # (Manual) Lymphocytes # Lymphocytes # (Manual) Metamyelocytes # (Man) APTT Fibrinogen D-Dimer 9.29 H ABG pH ABG pCO2 ABG pO2 ABG HCO3 ABG Total CO2 ABG O2 Saturation Sodium Chloride Carbon Dioxide BUN Creatinine Glucose POC Glucose (mg/dL) 108 H Calcium Phosphorus Magnesium Ferritin Total Bilirubin AST ALT Lactate Dehydrogenase LD Isoenzymes LD 1 LD 4 LD 5 C-Reactive Protein Total Protein Albumin Procalcitonin Ur Specific [place] Urine Protein Urine Ketones Urine Blood Urine RBC Urine WBC Urine Mucus 03/15/21 03/15/21 03/15/21 03:00 03:00 03:00 WBC 14.2 H RBC Hgb Hct RDW 15.8 H Plt Count Neutrophils # 12.3 H Neutrophils # (Manual) Lymphocytes # Lymphocytes # (Manual) Metamyelocytes # (Man) APTT Fibrinogen D-Dimer 8.70 H ABG pH ABG pCO2 ABG pO2 ABG HCO3 ABG Total CO2 ABG O2 Saturation Sodium Chloride Carbon Dioxide BUN Creatinine 0.56 L Glucose 102 H POC Glucose (mg/dL) Calcium Phosphorus Magnesium Ferritin 902.1 H Total Bilirubin 1.4 H AST ALT 160 H Lactate Dehydrogenase 1331 H LD Isoenzymes LD 1 LD 4 LD 5 C-Reactive Protein 2.2 H Total Protein 6.1 L Albumin Procalcitonin Ur Specific [place] Urine Protein Urine Ketones Urine Blood Urine RBC Urine WBC Urine Mucus 03/15/21 03/16/21 03/16/21 18:23 05:48 05:48 WBC 12.7 H RBC Hgb Hct RDW Plt Count Neutrophils # Neutrophils # (Manual) Lymphocytes # Lymphocytes # (Manual) Metamyelocytes # (Man) APTT Fibrinogen D-Dimer 10.09 H ABG pH ABG pCO2 ABG pO2 ABG HCO3 ABG Total CO2 ABG O2 Saturation Sodium Chloride Carbon Dioxide BUN Creatinine Glucose POC Glucose (mg/dL) 116 H Calcium Phosphorus Magnesium Ferritin Total Bilirubin AST ALT Lactate Dehydrogenase LD Isoenzymes LD 1 LD 4 LD 5 C-Reactive Protein Total Protein Albumin Procalcitonin Ur Specific [place] Urine Protein Urine Ketones Urine Blood Urine RBC Urine WBC Urine Mucus 03/16/21 03/16/21 03/16/21 05:48 13:37 13:37 WBC 19.8 H RBC Hgb Hct RDW Plt Count Neutrophils # 17.6 H Neutrophils # (Manual) Lymphocytes # 0.7 L Lymphocytes # (Manual) Metamyelocytes # (Man) APTT Fibrinogen D-Dimer ABG pH ABG pCO2 ABG pO2 ABG HCO3 ABG Total CO2 ABG O2 Saturation Sodium Chloride Carbon Dioxide 18 L BUN 24 H Creatinine Glucose 148 H POC Glucose (mg/dL) Calcium Phosphorus 7.4 H Magnesium Ferritin Total Bilirubin 1.8 H 1.4 H AST ALT 127 H 116 H Lactate Dehydrogenase LD Isoenzymes LD 1 LD 4 LD 5 C-Reactive Protein Total Protein Albumin Procalcitonin Ur Specific [place] Urine Protein Urine Ketones Urine Blood Urine RBC Urine WBC Urine Mucus Assessment and Plan Assessment: * 35-year-old male, with acute Covid-19 pneumonia, status post tracheostomy and PEG placement, improving significantly, had a new onset seizures (x2, half hour apart) witnessed by the staff. Patient at present has abnormal gaze upwards. Computed tomography scan of head showed possibility of mild hydrocephalus with no acute process otherwise. Uncertain if the hydrocephalus is new finding or old/congenital. No previous comparison CT head films available. EEG revealed disorganization suggestive of encephalopathy and medication effect. * Acute encephalopathy following seizure, unclear etiology. Rule out CVA/sinus thrombosis, rule out postictal state. No obvious thrombus noted in the major intracranial vessels. * Acute hypoxemic respiratory failure, status post tracheostomy and PEG placement. * Tracheobronchitis * Obesity * Elevated liver functions, secondary to fajardo virus infection. Plan: * Patient has abnormal computed tomography scan of the head. I would suggest MRI of the brain with and without contrast and MRV/MRA of the head which canno t be performed in this facility due to patient being on mechanical ventilation. * Patient probably will need lumbar puncture as well. * Suggest patient be transferred to higher level of care because of need for MRI and possible neurosurgery consultation, given his young age. * Continue Keppra 1000 mg IV twice a day. 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 * Please do not hesitate to contact me for any further concerns.
--- NOTE | 2021-03-16 19:46 | EEG ---
ELECTROENCEPHALOGRAM REPORT DATE OF SERVICE: 03/16/2021 PREAMBLE: This is a 35-year-old male with recent COVID infection, getting better, developed new- onset seizure. This study is performed to evaluate for any epileptiform activity. EEG FINDINGS: This is a 21-channel routine EEG recording in a patient utilizing 10/20 international system with referential and bipolar montages. Background consists of well-developed, poorly regulated, mixed frequencies of fast frequency beta activity intermixed with some alpha and some theta, superimposed some delta activity. A lot of myogenic artifacts were seen. Some sleep spindles were seen, suggestive of some degree of sleep. No focal or generalized epileptiform activity was seen. IMPRESSION: This is an abnormal EEG due to disorganized background with mixed slow and fast frequency activity. This is suggestive of generalized cerebral dysfunction as can be seen with metabolic encephalopathy and medication effect. No definitive epileptiform activity was seen in the study. MMODL / IJN: [id number] /
[2021-03-16] MEDS ORDERED: SODIUM CHLORIDE 0.9% 2,000 ML IV ONE (20:34)
--- NOTE | 2021-03-16 21:14 | XR ---
EXAMINATION TYPE: XR abdomen 1V DATE OF EXAM: 03/16/2021 COMPARISON: 03/15/2021 HISTORY: Abdominal pain There is large diameter tubing over the rectum. There is unusual lucency over the abdomen that could relate to a large pneumoperitoneum. There is gastrostomy tube noted over the left upper quadrant. IMPRESSION: There appears to be a large pneumoperitoneum. There is new gastrostomy tube compared to r ecent exam.
--- NOTE | 2021-03-16 21:15 | XR ---
EXAMINATION TYPE: XR chest 1V portable DATE OF EXAM: 03/16/2021 COMPARISON: Today HISTORY: Respiratory distress TECHNIQUE: FINDINGS: There is pulmonary interstitial and airspace edema. There is large pneumoperitoneum. There is air under the right diaphragm. There is tracheostomy tube IMPRESSION: There is pulmonary edema and cardiomegaly. This could relate to congestive heart failure or RDS unchanged. Large pneumoperitoneum unchanged.
[2021-03-16 21:36] LABS: ABG Base Excess -4.7 mmol/L; ABG HCO3 21 mmol/L (21-25); ABG Oxygen Saturation 99.5 % (94-97); ABG PCO2 38 mmHg (35-45); ABG PH 7.35 (7.35-7.45); ABG PO2 231 mmHg (83-108); ABG TCO2 22 mmol/L (19-24); Allen Test Performed? Yes
[2021-03-16] MEDS ORDERED: LORazepam 2 MG/ML INJ IV PRN (22:36)
[2021-03-16 23:21] LABS: Glucose,Whole Blood 102 mg/dL (75-99)
[2021-03-16] MEDS: SODIUM CHLORIDE 0.9% 1,000 ML IV SCH (23:29)
[2021-03-17 04:34] LABS: Basophils % (A) 0 %; Eosinophils # (A) 0.2 k/uL (0-0.7); Eosinophils % (A) 1 %; HCT 39.9 % (39.0-53.0); HGB 13.3 gm/dL (13.0-17.5); Lymphocytes # (A) 1.6 k/uL (1.0-4.8); Lymphocytes % (A) 10 %; MCH 30.1 pg (25.0-35.0); MCHC 33.2 g/dL (31.0-37.0); MCV 90.7 fL (80.0-100.0); Mean Platelet Volume 8.3; Monocytes % (A) 6 %; Neutrophils # (A) 12.9 k/uL (1.3-7.7); Neutrophils % (A) 81 %; Platelet Count 190 k/uL (150-450); WBC 15.9 k/uL (3.8-10.6)
[2021-03-17 04:48] LABS: ALT 98 U/L (4-49); AST 37 U/L (17-59); African American GFR (CKD) >90 (>60 ml/min/1.73 sqM); Albumin 3.4 g/dL (3.5-5.0); Alkaline Phosphatase 69 U/L (38-126); Anion Gap 10 mmol/L; Blood Urea Nitrogen 15 mg/dL (9-20); C Reactive Protein 3.6 mg/dL (<1.0); Calcium 8.5 mg/dL (8.4-10.2); Carbon Dioxide 17 mmol/L (22-30); Chloride 108 mmol/L (98-107); Glucose 115 mg/dL (74-99); LDH 972 U/L (313-618); Magnesium 2.6 mg/dL (1.6-2.3); Non-African American GFR(CKD) >90 (>60 ml/min/1.73 sqM); Potassium 3.9 mmol/L (3.5-5.1); Sodium 135 mmol/L (137-145); Total Bilirubin 1.3 mg/dL (0.2-1.3); Total Protein 5.7 g/dL (6.3-8.2)
[2021-03-17 05:18] LABS: ABG Base Excess -4.6 mmol/L; ABG HCO3 21 mmol/L (21-25); ABG Oxygen Saturation 93.2 % (94-97); ABG PCO2 36 mmHg (35-45); ABG PH 7.37 (7.35-7.45); ABG PO2 72 mmHg (83-108); ABG TCO2 22 mmol/L (19-24); Allen Test Performed? Yes
[2021-03-17] MEDS: METOCLOPRAMIDE 5 MG/ML 2 ML VIAL IVP SCH ×4 (06:09→23:56)
[2021-03-17 06:13] LABS: Glucose,Whole Blood 97 mg/dL (75-99)
--- NOTE | 2021-03-17 06:13 | XR ---
EXAMINATION TYPE: XR chest 1V portable DATE OF EXAM: 03/17/2021 CLINICAL HISTORY: Difficulty breathing progress study. TECHNIQUE: Single AP portable semiupright view of the chest is obtained. COMPARISON: Chest x-ray from one day earlier FINDINGS: Stable tracheostomy tube and left-sided PICC line. Persistent low lung volumes with bilate ral multifocal and confluent opacities. Stable cardiomegaly. Osseous structures are intact. Known Pne umoperitoneum redemonstrated. IMPRESSION: Low lung volumes and cardiomegaly with bilateral multifocal and confluent opacities consi stent with covid-19 infection. Pneumoperitoneum redemonstrated. No significant change from one day ea rlier.
--- NOTE | 2021-03-17 06:15 | XR ---
EXAMINATION TYPE: XR abdomen 2V DATE OF EXAM: 03/17/2021 CLINICAL HISTORY: Abdominal distention and free air. TECHNIQUE: Supine and upright views of the abdomen are obtained. COMPARISON: Abdominal x-ray from yesterday. CT from 2 days ago. FINDINGS: PEG tube overlies the midabdomen. Diffuse lucency consistent with free air redemonstrated. Scattered gas seen in nondistended small and large bowel loops. Osseous structures are intact. IMPRESSION: As above. No significant change from one day earlier.
[2021-03-17] MEDS: POTASSIUM CHLORIDE 10 MEQ in WATER FOR INJECTION 1 100ML.BAG IVPB SCH ×2 (06:27→08:02)
[2021-03-17] MEDS: ALBUTEROL HFA INHALER INHALATION SCH ×4 (07:57→19:57)
[2021-03-17] MEDS: PANTOPRAZOLE 40 MG/10 ML VIAL IV SCH (08:02)
[2021-03-17] MEDS: PIPERACILLIN-TAZOBACTAM 3.375 GM in SODIUM CHLORIDE 0.9% 100 ML IVPB SCH ×3 (08:02→23:56)
[2021-03-17] MEDS: CHLORHEXIDINE GLUCONATE 15 ML CUP MUCOUS MEM SCH ×2 (08:02→20:39)
[2021-03-17] MEDS: DEXAMETHASONE SOD PHOSPHATE 4 MG/ML 1 ML VIAL IV SCH (08:03)
[2021-03-17] MEDS: levETIRAcetam IV 1,000 MG in SALINE 1 100ML.BAG IVPB SCH ×2 (08:03→20:39)
[2021-03-17] MEDS: bisacodyL 10 MG SUPP RECTAL SCH (08:03)
--- NOTE | 2021-03-17 08:28 | P.PN ---
Subjective Progress Note Date: 03/17/21 On , I'm seeing this patient for a follow-up. This is a 35-year-old male patient was in the intensive care unit for respiratory failure due to COVID-19 related pneumonia. The patient intubated and mechanically ventilated on 03/01/2021 and subsequently the patient failed to wean and failed to recover and the patient required tracheostomy tube insertion and a PEG tube insertion for long-term ventilator care and enteral feeding for nutritional support and this was done on 03/10/2021. The patient is currently off sedation and his been off sedation for the past 24 hours. This morning, the patient patient is on a trach shield at 50% FiO2. He is calm and comfortable. He was taken off th e mechanical ventilator 3 am and his been off the mechanical ventilator since. During the course of the treatment, the patient was also cultured to have MSSA and Moraxella catarrhalis in his sputum. He was treated with antibiotics and currently is off antibiotics. Patient is hemodynamically stable on no pressors. He requires Cleviprex on and off for blood pressure control. He is receiving enteral feeding for dentures support with vital high protein at the rate of 33 mL an hour. Chest x-ray still showing diffuse but the pulmonary infiltrates. Inflammatory markers including LDH from is 686 with a CRP of 0.6. His d-dimer level was is still elevated 7.38 the patient was receiving Lovenox 60 mg subcu every 12 hours. Patient otherwise is tolerating enteral feeding for dentures support. The patient has been afebrile and hemodynamically stable. He remains on Decadron 6 mg IV every 12 hours. He is also on Lovenox for deep prophylaxis. Afebrile.Chest x-ray still showing diffuse bilateral interstitial infiltrates most on the right lower lobe and the patient has a PICC line in left upper extremity. Tracheostomy tube is in a good location. 03/14/2021, the patient is being seen for a follow-up. The patient spent the entire day yesterday trach collar at 50%. Overnight, the patient started having some increased oral and orotracheal secretions that were bloody. He was also desaturating. He was placed on 100% trach collar and following that he was placed back on a mechanical ventilator on his previous ventilator settings and he stayed on the assist control mode of the night. This morning, he was switched back to a trach collar at 50%. His current pulse ox is 90%. His chest x-ray showing that the tip of the tracheostomy tube was very high in the trachea and that she possibly may need to be repositioned and pushed in. He is awake and alert. He is off the mechanical ventilator for now. Chest x-ray still showing bilateral pulmonary infiltrates, essentially unchanged compared to yesterday. In terms of his treatment, the patient remains on Decadron 6 mg IV every 24 hours. Inflammatory markers from today of 9.29, LDH level of 1059 and a CRP level of 0.7. His white cell count is at 15.2 and hemoglobin of 13.4. Rest of the electrodes are all within normal limits. He remains on Lovenox for DVT prophylaxis. He is also receiving enteral feeding was nutritional support. The patient is receiving vital high protein at the rate of 33 mL an hour. Note that overnight, he had also to be placed on a low-dose fentanyl which unwilling to discontinue today. He is currently running at 3 mcg/kg per minute of fentanyl drip. He has a PEG tube in place. No abdominal distention. Regular bowel movements. On 03/15/2021, the patient is on the 50% trach collar. He is a bit anxious and tachypneic specially when he is having a communication with other nursing staff and physicians. When left alone, the patient aspirate was done in the mid 30s. He has a Shiley tracheostomy tube in place. He did have some limited amount of bleeding around the Shiley tracheostomy tube and there is no active bleeding at this point in time. No significant cough or sputum production. He is resting comfortably in bed. Physically is getting stronger. A repeat chest x-ray was done today and it showed some small bowel distention and for that reason an abdominal x-ray was done that raised the possibility of small bilateral ileus and at the same time there was a 12 mm opaque density over the left upper quadrant of the abdomen that was not seen on earlier evaluation. Based on his gastric and small bowel distention and the presence of a radiopaque density, general surgery was involved again with the patient be asked to be seen again by general surgery regarding his abnormalities. Meanwhile, the patient is passing flatus, he is still receiving enteral feeding for nutritional support in the form of vital high protein at the rate of 53 mL an hour. On examination, he denies having any significant abdominal distention or tenderness. Bowel sounds are present. No tympany on examination. His chest x-ray still showing bilateral pulmonary infiltrates consistent with COVID-19 related pneumonia. D- dimer is down to 8.7. His rest of the inflammatory markers shows a LDH level of 1331 and a CRP of 2.2. He is weaned down on his Decadron to 4 mg IV every 24 hours. He is also on Lovenox 60 mg subcu every 12 hours. On today's evaluation of 03/16/2021, I'm seeing this patient for a follow-up. The patient remains on trach collar at 60%. He seems to be quite comfortable. He did not go on a mechanical ventilator overnight and he stayed on trach collar throughout the day and overnight. Abdominal films and the chest from yesterday showed air under the diaphragm. There was free air and there was also some gastric distention. I consulted with general surgery and the patient was seen by Dr. Rk encarnacion. A CAT scan of the abdomen and pelvis was done and based on the findings, there was confirmation of pneumoperitoneum that was moderate to severe amount and the patient had satisfactory the was a shooting of the PEG tube. It was noted also that the sutures and the clips hasn't migrated and his general surgeon is aware of that nevertheless, despite these findings, the patient does have a soft abdomen. The patient was made nothing by mouth yesterday. His activity was drained to gravity and his produce approximately 400 mL of gastric/bilious material. The patient's white cell count is at 12.7. Hemoglobin is at 14.3. No evidence of any GI bleeding. Platelet count is at 193. His electrolytes all within normal limits. No significant acidosis. Renal function stable with a creatinine of 0.7. LFTs are also adequate for now some elevation in the ALT was noted. Meanwhile, d-dimer is at 10.09. LDH level was not checked from today. His chest x-ray is unchanged and the patient continues to have pneumoperitoneum bilaterally. There is air under the diaphragms bilaterally. The patient remains on Decadron 4 mg IV every 24 hours and the patient is also on Lovenox 60 mg subcu every 12 hours which was placed on hold by general surgery. He is currently on IV Zosyn and this was started yesterday by general surgery as an empiric antibiotic coverage. He is on no sedation. Is awake and alert. His communicating. At times he gets worked up and short of breath and there may be a component of anxiety. On 03/17/2021, the patient is being seen in follow-up in the intensive care unit. Unfortunately, several events occurred since yesterday. After my rounds, at around noontime, the patient went into a sudden seizure activity. This was witnessed right the nursing staff and the respiratory therapist. The patient had tonic-clonic jerking activity and his eyes were rolling and the patient lost consciousness. This lasted for around 1-2 minutes. During that time, the patient was given Ativan IV and following that he was started on Keppra. Subsequently, the patient had another bout of seizure activity and that point he was not regaining consciousness back and probably was due to post ictal state. At that point, the patient was started on propofol which is still running at a dose of 70 mcg/kg per minute. EEG was done yesterday while the patient was on propofol and Keppra and the EEG showed some abnormalities with this organized background intermixed slow and high frequency activity. There was obvious signs of generalized cerebral dysfunction. No definite seizure activity was seen on that study. The CAT scan of the brain was also done that showed no acute abnormalities. Meanwhile, the patient's was also seen by neurology. Overnight, he became slightly hypotensive. He required low-dose norepinephrine infusion wh ich was ultimately weaned off and discontinued and currently the patient is on no pressors. In other issues ongoing with pneumoperitoneum. The patient was seen by general surgery. Abdomen remains soft and with resulting there is any evidence of any acute abdomen that requires immediate surgical intervention. X- ray still showing air under the diaphragm bilaterally in the abdomen and x-rays also showing pneumoperitoneum. On yesterday's evaluation and based on the ongoing neurologic changes, blood gas was rechecked and the patient did not show any significant acidosis. His pH was 7.35 with a pCO2 of 38 and pO2 of 31 and this was done while the patient on mechanical ventilator within assist-control of 32, FiO2 85% with a tidal volume of 420 in the rate of 32 and PEEP of 5. FiO2 was weaned down to 50% and the patient's morning blood gases showed a pH of 7.37 with a pCO2 of 36 and pO2 of 72. Chest x-ray still showing diffuse but the pulmonary infiltrates consistent with COVID-19 related pneumonia. His tracheostomy tube is in a good location. In terms of his inflammatory markers, and d-dimer today is at 14.7. His LDH level is at 972 and his CRP level is at 3.6. He is afebrile this morning. He was running fevers yesterday and his temperature was as high as 100.9. He is covered with broad-spectrum antibiotics and the patient is currently still on a combination of Decadron 4 mg IV every 24 hours and the patient is also on IV Zosyn. I have the patient off Lovenox for surgical recommendation should he require any surgical intervention. He has aggressive compression devices to lower extremities bilaterally. At least going back to Lovenox at a dose of 40 mg subcu once a day, prophylactic dose. Objective - Vital Signs Vital signs: Vital Signs Temp 98.8 F 03/17/21 04:00 Pulse 73 03/17/21 07:00 Resp 39 H 03/17/21 07:00 BP 90/62 03/17/21 07:00 Pulse Ox 98 03/17/21 07:00 Intake & Output 03/16/21 03/17/21 03/17/21 18:59 06:59 18:59 Intake Total 330.00 2872.49 120 Output Total 505 1615 65 Balance -175.00 1257.49 55 Weight 112.6 kg Intake: IV 230 2390 120 0.9 NaCl Bolus 2000 Piperacillin-Tazobactam 3 200 100 .375 gm In Sodium Chloride 0.9% 100 ml @ 25 mls/hr IVPB Q8HR [facility] Rx# :[id number] Potassium replacement 100 Sodium Chloride 0.9% 1, 30 190 20 000 ml @ 10 mls/hr IV . Q24H [facility] Rx#:[id number] levETIRAcetam IV 1,000 mg 100 In Saline 1 100ml.bag @ 400 mls/hr IVPB Q12HR [facility]I Rx#:[id number] Intake, IV Titration 100.00 482.49 Amount propofoL 1,000 mg In 100.00 482.49 Empty Bag 1 bag @ Titrate IV .Q0M [facility] Rx#: [id number] Output: Gastric Drainage 160 Urine 505 1455 65 Other: Voiding Method Indwelling Catheter Indwelling Catheter ABP, PAP, CO, CI - Last Documented Arterial Blood Pressure 102/72 - Exam GENERAL EXAM: Sedated, 35-year-old gentleman, on mechanical ventilator, comfortable in no apparent distress. Tracheostomy tube is in place, and the mita gore has a Shiley #[address] The patient is attached back to a mechanical ventilator. The patient is sedated with propofol. He is deeply sedated. He is not following any commands. Does draw to painful stimulation. Eyes are deviated upwards. No nystagmus been no seizure activity has been noted. No jerky body movements. He is quite comfortable on mechanical ventilator. HEAD: Normocephalic. EYES: Normal reaction of pupils, equal size. NOSE: Clear with pink turbinates. THROAT: No erythema or exudates. NECK: Tracheostomy tube secured in place. No masses, no JVD. CHEST: No chest wall deformity. LUNGS: Equal air entry with bilateral coarse crackles. CVS: S1 and S2 normal with no audible murmur, regular rhythm. ABDOMEN: PEG tube exit site clean and dry. No hepatosplenomegaly, normal bowel sounds, no guarding or rigidity. Note that the abdomen is nondistended. No tympany. No tenderness. Bowel sounds are present. Some dried of bloody secretions around the PEG tube orifice SPINE: No scoliosis or deformity SKIN: No rashes CENTRAL NERVOUS SYSTEM: Sedated, please refer to the neurologic consultation regarding detailed neurologic examination. EXTREMITIES: There is no peripheral edema. No clubbing, no cyanosis. Peripheral pulses are intact. - Labs CBC & Chem 7: 03/17/21 04:21 03/17/21 04:21 Labs: Abnormal Lab Results - Last 24 Hours (Table) 03/16/21 03/16/21 03/16/21 Range/Units 13:37 13:37 13:56 WBC 19.8 H (3.8-10.6) k/uL Neutrophils # 17.6 H (1.3-7.7) k/uL Lymphocytes # 0.7 L (1.0-4.8) k/uL D-Dimer (<0.60) mg/L FEU ABG pO2 232 H (83-108) mmHg ABG O2 Saturation 99.7 H (94-97) % Sodium (137-145) mmol/L Chloride (98-107) mmol/L Carbon Dioxide 18 L (22-30) mmol/L BUN 24 H (9-20) mg/dL Creatinine (0.66-1.25) mg/dL Glucose 148 H (74-99) mg/dL POC Glucose (mg/dL) (75-99) mg/dL Phosphorus 7.4 H (2.5-4.5) mg/dL Magnesium (1.6-2.3) mg/dL Total Bilirubin 1.4 H (0.2-1.3) mg/dL ALT 116 H (4-49) U/L Lactate Dehydrogenase (313-618) U/L C-Reactive Protein (<1.0) mg/dL Total Protein (6.3-8.2) g/dL Albumin (3.5-5.0) g/dL 03/16/21 03/16/21 03/16/21 Range/Units 18:03 21:28 23:20 WBC (3.8-10.6) k/uL Neutrophils # (1.3-7.7) k/uL Lymphocytes # (1.0-4.8) k/uL D-Dimer (<0.60) mg/L FEU ABG pO2 231 H (83-108) mmHg ABG O2 Saturation 99.5 H (94-97) % Sodium (137-145) mmol/L Chloride (98-107) mmol/L Carbon Dioxide (22-30) mmol/L BUN (9-20) mg/dL Creatinine (0.66-1.25) mg/dL Glucose (74-99) mg/dL POC Glucose (mg/dL) 138 H 102 H (75-99) mg/dL Phosphorus (2.5-4.5) mg/dL Magnesium (1.6-2.3) mg/dL Total Bilirubin (0.2-1.3) mg/dL ALT (4-49) U/L Lactate Dehydrogenase (313-618) U/L C-Reactive Protein (<1.0) mg/dL Total Protein (6.3-8.2) g/dL Albumin (3.5-5.0) g/dL 03/17/21 03/17/21 03/17/21 Range/Units 04:21 04:21 04:21 WBC 15.9 H (3.8-10.6) k/uL Neutrophils # 12.9 H (1.3-7.7) k/uL Lymphocytes # (1.0-4.8) k/uL D-Dimer 14.75 H (<0.60) mg/L FEU ABG pO2 (83-108) mmHg ABG O2 Saturation (94-97) % Sodium 135 L (137-145) mmol/L Chloride 108 H (98-107) mmol/L Carbon Dioxide 17 L (22-30) mmol/L BUN (9-20) mg/dL Creatinine 0.52 L (0.66-1.25) mg/dL Glucose 115 H (74-99) mg/dL POC Glucose (mg/dL) (75-99) mg/dL Phosphorus (2.5-4.5) mg/dL Magnesium 2.6 H (1.6-2.3) mg/dL Total Bilirubin (0.2-1.3) mg/dL ALT 98 H (4-49) U/L Lactate Dehydrogenase 972 H (313-618) U/L C-Reactive Protein 3.6 H (<1.0) mg/dL Total Protein 5.7 L (6.3-8.2) g/dL Albumin 3.4 L (3.5-5.0) g/dL 03/17/21 Range/Units 05:11 WBC (3.8-10.6) k/uL Neutrophils # (1.3-7.7) k/uL Lymphocytes # (1.0-4.8) k/uL D-Dimer (<0.60) mg/L FEU ABG pO2 72 L (83-108) mmHg ABG O2 Saturation 93.2 L (94-97) % Sodium (137-145) mmol/L Chloride (98-107) mmol/L Carbon Dioxide (22-30) mmol/L BUN (9-20) mg/dL Creatinine (0.66-1.25) mg/dL Glucose (74-99) mg/dL POC Glucose (mg/dL) (75-99) mg/dL Phosphorus (2.5-4.5) mg/dL Magnesium (1.6-2.3) mg/dL Total Bilirubin (0.2-1.3) mg/dL ALT (4-49) U/L Lactate Dehydrogenase (313-618) U/L C-Reactive Protein (<1.0) mg/dL Total Protein (6.3-8.2) g/dL Albumin (3.5-5.0) g/dL Microbiology - Last 24 Hours (Table) 03/16/21 00:12 Gram Stain - Preliminary Sputum Sputum Culture - Preliminary Assessment and Plan Plan: 1 Acute hypoxemic respiratory failure, secondary to COVID 19 pneumonia/pneumonitis, requiring intubation and mechanical ventilation on 03/01/2021. Failure to progress on mechanical ventilation, tracheostomy tube placement and PEG tube placed on 03/10/2021. She was off the mechanical ventilator for several days. Subsequently, his condition decompensated the patient developed new onset seizure activity that was noted yesterday and the patient accordingly had to be placed back on propofol and he was associated with the mechanical ventilator. Oxygenation was noted. Blood gases was reviewed. Chest x-ray was reviewed. There is air under the diaphragm due to complications of PEG tube insertion. No clear indication for a acute abdomen at this point in time. General surgeries on the case. Lactic acid is not elevated. Inflammatory markers are not elevated with exception of some elevation in d-d isrrael. The patient is still on low-dose Decadron. 2 acute and new onset seizure activity, treated with Ativan and currently the patient on Keppra and sedated with 4. 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 Neurologist on the case. CAT scan of the brain was negative. 3 pneumoperitoneum, post PEG tube insertion. Findings were discussed with general surgery. No evidence of any acute abdomen at this point in time. We decided to keep the patient nothing by mouth for now. PEG tube is to dependent drainage. Output is being monitored. No acidosis. No leukocytosis. No abdominal pain or distention. No tenderness. The computed tomography scan of the abdomen and pelvis was noted. There is some issue with the sutures/collapse associated with the PEG tube. The patient is nothing by mouth. The patient is currently on IV Zosyn. The white cell count is up from 19.8 down to 15.9. Lactic acid level is 0.9. There is persistent no peritoneum and abdominal films and the chest x-ray still showing air under the diaphragm bilaterally. 4 Methicillin sensitive staph aureus and Moraxella catarrhalis tracheobronchitis/bronchopneumonia, 5 Morbid obesity. 6 Possible sleep apnea syndrome. 7 Lymphopenia, secondary to above 8 Elevated liver function tests, secondary to coronavirus infection, recovered 9 Hyponatremia, resolved. Plan: Keep the patient sedated with propofol Will consider giving him a sedation holiday And assess his underlying mental status continue Keppra regarding his new onset seizures Keep the patient on mechanical ventilator for now. Continue Decadron 4 mg every 24 hours Keep the patient nothing by mouth Hold tube feeds Will consider TPN if the patient is unable to go back on enteral feeding. We'll consult with general surgery regarding this issue. Monitor the output from the PEG tube which is attached to dependent drainage, and drainage has been around 160 mL overnight and the abdomen remains soft Recheck sputum Gram stain and culture Continue IV Zosyn Lovenox restarted at a dose of 40 mg subcu every 24 hours Apply compression devices lower extremities Monitor inflammatory markers Repeat chest x-ray in the morning Continue to follow up this case along with general surgery and neurology We'll continue to follow. The case was discussed with the general surgeon at length. Critically care evaluation, more than 30 minutes Time with Patient: Greater than 30
[2021-03-17] MEDS: ENOXAPARIN 60 MG/0.6 ML SYRINGE SQ SCH (08:35)
[2021-03-17] MEDS: ENOXAPARIN 40 MG/0.4 ML SYRINGE SQ SCH (08:46)
--- NOTE | 2021-03-17 08:49 | P.PCN ---
Date of Procedure: 03/17/21 Preoperative Diagnosis: ARDS secondary to COVID-19 related pneumonia Postoperative Diagnosis: ARDS secondary to COVID-19 related pneumonia Procedure(s) Performed: 1 intubation 2 arterial line insertion Anesthesia: local Surgeon: Lauro Walter Disposition: ICU Indications for Procedure: Indication: Hemodynamic monitoring. A time-out was completed verifying correct patient, procedure, site, positioning, and implant(s) or special equipment if applicable. Allens test was performed to ensure adequate perfusion. The patients right wrist was prepped and draped in sterile fashion. 1% Lidocaine was used to anesthetize the area. An 18G Arrow arterial line was introduced into the radial artery. The catheter was threaded over the guide wire and the needle was removed with appropriate pulsatile blood return. Blood loss was minimal. The catheter was then sutured in place to the skin and a sterile dressing applied. Perfusion to the extremity distal to the point of catheter insertion was checked and found to be adequate. The patient tolerated the procedure well and there were no complications. Indication: Respiratory compromise. A time-out was completed verifying correct patient, procedure, site, positioning, and implant(s) or special equipment if applicable. The patient was positioned appropriately and a #8 endotracheal tube was placed under direct glidoscope . The tube was anchored at 22 cm at the teeth. Correct placement was confirmed by presence of bilateral breath sounds without air sounds in the abdomen on auscultation. An end-tidal CO2 monitor was also used to confirm tracheal placement of the ET tube. A chest x-ray was ordered to assess for pneumothorax and verify endotracheal tube placement. The patient tolerated the procedure well and there were no complications.
--- NOTE | 2021-03-17 10:55 | P.PN ---
Subjective Progress Note Date: 03/17/21 Osmar Drummond, is a 35-year-old male patient of Dr. Hdz, who presented to [facility] emergency room with a chief complaint of worsening shortness of breath and chest tightness. Patient was also having persistent cough his symptoms started 12 days ago however he had severe worsening of his symptoms in the last 3 days. He stated that last Saturday he was tested for COVID-19, results came back positive on Saturday. He was evaluated in the emergency room vital examination on presentation revealed a temperature of 103 pulse 92 respiration 18 blood pressure 124/77 pulse ox 92% on room air. White blood count was 4.2 hemoglobin 15.4 platelet count 161 sodium 125 potassium 3.9 chloride 88 calcium 7.8 BUN 8 creatinine 0.94 AST 98 ALT 57 LDH 1623 C-reactive protein 41.1 EKG done in the emergency room revealed normal sinus rhythm normal EKG, chest x-ray done in the emergency room revealed patchy bilateral infiltrates compatible with multifocal pneumonia no pneumothorax. Patient was admitted to medical floor pulmonary consultation was requested. On 02/25/2021 patient was seen and examined on the medical floor he is alert and oriented 3 in no distress, he is still complaining of cough and shortness of breath otherwise he denies any complaints there is no fever or chills no hea dache or dizziness no chest pain no nausea or vomiting no abdominal pain no diarrhea no blood in the stools no burning was urination no frequency or urgency and no hematuria. On 02/26/2021 patient was seen and examined on the medical floor he is alert and oriented 3 in no distress he seems to be worse today he is having more tachycardia and tachypnea, his temperature is 99.8 pulse ox is down to 82% on 15 L high flow cannula inflammatory markers are up his LDH is 1735 up from 1440 yesterday C-reactive protein is up to 7.2 up from 6 yesterday d-dimer is up to 1.21 up from 0.77 yesterday, at this time patient is maintained on inhaled bronchodilators, IV Decadron, subcu Lovenox,, repeat chest x-ray done today reveals by basilar infiltrates and opacities consistent with COVID-19 infection without any significant change from previous x-ray on 02/27/2021 patient was seen and examined on the medical floor, he is alert and oriented 3 in no apparent distress he is reporting some improvement in his shortness of breath, vital exam reveals a temperature of 99.1 pulse 102 respiration 20 blood pressure 121/84 pulse ox 87% on 15 L high flow cannula, white blood count is 6.2 hemoglobin 13.8 platelet count 262 d-dimer 1.51 sodium 127 potassium 4.0 chloride 94 CO2 25 BUN 13 creatinine 0.81 LDH 1969 C-reactive protein up to 8.9, patient is complaining of cough and shortness of breath otherwise he denies any complaints there is no fever or chills no headache or dizziness no chest pain no nausea or vomiting no abdominal pain no diarrhea no blood in the stools no burning with urination no frequency or urgency and no hematuria On 02/28/2021 patient was seen and examined on the medical floor he is alert and oriented 3 in no apparent distress, he is still maintained on Airvo with FiO2 of 90% his temperature is 98.7 pulse 116 respiration 28 blood pressure 145/81 pulse ox 93% he is complaining of shortness of breath and occasional cough otherwise he denies any complaints there is no fever or chills no headache or dizziness no chest pain no nausea or vomiting no abdominal pain no diarrhea no blood in the stools no burning with urination no frequency or urgency and no hematuria. On 03/01/2021 patient was seen and examined in the ICU he is intubated sedated maintained on mechanical ventilation air this morning patient was having worsening shortness of breath and decreased O2 sat duration despite Airvo, he was transferred to ICU and was intubated. Currently patient is on assist c ontrol tidal volume of 400 rate of 30 FiO2 100% and PEEP of 10 arterial blood gas reveals a pH of 7.24 pCO2 55 PO2 78 sodium is 127 LDH 2034 C-reactive protein 4.5 pulmonary are following closely On 03/02/2021 patient was seen and examined in the ICU he is intubated sedated maintained on mechanical ventilation air this morning patient was having worsening shortness of breath and decreased O2 sat duration despite Airvo, he was transferred to ICU and was intubated. Currently patient is on assist control tidal volume of 400 rate of 30 FiO2 100% and PEEP of 10 arterial blood gas reveals a pH of 7.24 pCO2 55 PO2 78 sodium is 127 LDH 203 C-reactive protein 4.5 pulmonary are following closely. Patient has evidence of ileus, he is maintained on NG tube to suction, surgical consultation was requested. On 03/03/2021 patient was seen and examined in the ICU he is intubated sedated maintained on mechanical ventilation air this morning patient was having worsening shortness of breath and decreased O2 sat duration despite Airvo, he was transferred to ICU and was intubated. Currently patient is on assist control tidal volume of 420 rate of 30 FiO2 85 % and PEEP of 16 arterial blood gas reveals a pH of 7.39 pCO2 55 PO2 66 sodium is 134 LDH 2034 C-reactive protein 4.5 pulmonary are following closely. Patient has evidence of ileus, he is maintained on NG tube to suction, surgical consultation was requested. On 03/04/2021 patient was seen and examined in the ICU he is intubated sedated maintained on mechanical ventilation air this morning patient was having worsening shortness of breath and decreased O2 sat duration despite Airvo, he was transferred to ICU and was intubated. Currently patient is on assist control tidal volume of 420 rate of 30 FiO2 85 % and PEEP of 16 arterial blood gas reveals a pH of 7.41 pCO2 53 PO2 89 sodium is 136 D-Dimer 2.0 pulmonary are following closely.\\ On 03/05/2021 patient was seen and examined in the ICU he is intubated sedated maintained on mechanical ventilation, patient is maintained on assist control tidal volume 42 rate of 30 FiO2 75% and PEEP at 16 arterial blood gas reveals a pH of 7.43 pCO2 48 and PO2 84 white blood count is 11.6 hemoglobin 11.3 platelet count 305 d-dimer 1.85 On 03/06/2021 patient was seen and examined in the ICU he is intubated sedated maintained on mechanical ventilation, patient is maintained on assist control tidal volume 420 rate of 30 FiO2 55% and PEEP at 12 arterial blood gas reveals a pH of 7.43 pCO2 49 and PO2 88 white blood count is 11.6 hemoglobin 11.9 platelet count 305 d-dimer 1.7 patient had a sedation holiday today he did well he was alert and following commands On 03/07/2021 patient was seen and examined in the ICU he is intubated sedated maintained on mechanical ventilation patient is maintained on assist control tidal volume 420 rate 32 FiO2 50% with a PEEP of 12 arterial blood gas reveals a pH of 7.44 pCO2 45 and PaO2 of 71 patient is having sedation holidays and is responding well at that time. On 03/08/2021, patient was seen and examined in the ICU he is intubated sedated maintained on mechanical ventilation, arterial blood gas Reveals a pH of 7.45 pCO2 44 PaO2 78 d-dimer 1.84, patient is maintained on assist control rate 32 tidal folium 420 FiO2 50% and a PEEP of 12 On 03/09/2021 patient was seen and examined in the ICU he is intubated sedated maintained on mechanical ventilation, he is scheduled for tracheostomy and PEG tube placement tomorrow, arterial blood gas reveals a pH of 7.4 to pCO2 48 PaO2 73 white blood count is 9.9 hemoglobin 11.6 platelet count 212 d-dimer is elevated at 3.4 On 03/10/2021, patient was seen and examined in the ICU he is intubated sedated maintained on mechanical ventilation, arterial blood gas Reveals a pH of 7.45 pCO2 44 PaO2 78 d-dimer 1.84, patient is maintained on assist control rate 32 tidal folium 420 FiO2 50% and a PEEP of 12 Patient is scheduled for tracheostomy and PEG tube placement today. On 03/11/2021 patient was seen and examined in the ICU he is intubated, sedated and maintained on mechanical ventilation, he underwent racheostomy and PEG tube placement yesterday, his vent setting patient is maintained on assist control rate of 32 tidal volume 420 FiO2 50% and PEEP of 10 ABG reveals pH 7.46 pCO2 41 PaO2 81 liver enzymes are slightly elevated was AST at 78 ALT at 265 On 03/12/2021 patient was seen and examined in the ICU he is intubated through tracheostom, he is alert responsive trying to answer questions, he is maintained on BiPAP, there is no fever or chills no headache or dizziness no chest pain no shortness of breath no palpitation no cough no nausea or vomiting no abdominal pain no diarrhea no blood in the stools no burning with urination no frequency or urgency and no hematuria, patient is improving gradually. On 03/13/2021 patient was seen and examined in the ICU he is intubated through tracheostomy, he is alert responsive. He is maintained on BiPAP, there is no fever or chills no headache or dizziness no chest pain no shortness of breath no palpitation no cough no nausea or vomiting no abdominal pain no diarrhea no blood in the stools no burning with urination no frequency or urgency and no hematuria, patient is improving gradually. He remains on Decadron 6 mg IV every 12 hours, and SQ Lovenox On 03/14/2021 patient was seen and examined in the ICU he is alert responsive in no apparent distress he is maintained on a trach collar at FiO2 50% vital exam reveals a temperature of 98.9 pulse 80 respiration 42 blood pressure 142/86 pulse ox 92% his white blood count is 15.2 hemoglobin 13.4 platelet count 192 d- dimer is up to 9.29 patient is maintained on IV Decadron and subcu Lovenox pulmonary are following closely On 03/15/2021 patient was seen and examined in the ICU he is alert responsive in no apparent distress he is maintained on a trach collar at FiO2 50% vital exam reveals a temperature of 98.9 pulse 80 respiration 42 blood pressure 142/86 pulse ox 92% his white blood count is 14.2 hemoglobin 14 platelet count 201 d- dimer is 8.7 patient is maintained on IV Decadron and subcu Lovenox pulmonary are following closely, surgery is following regarding ileus, CT scan of the abdomen ordered for today On 03/16/2021 patient was seen and examined in the ICU he is alert and responsive in no apparent distress he is maintained on oxygen through trach collar at 60%, patient has mild abdominal distention computed tomography scan of the abdomen was done and patient is followed by general surgery, vital examination today reveals a pulse of 94 respiration rate 50 blood pressure 117/76 and pulse ox 91% on trach collar. White blood count is 12.7 hemoglobin 14.3 platelet count 193 d-dimer 10.09 arterial blood gas reveals a pH of 7.36 pCO2 38 PaO2 232 glucose 148 AST 39 ALT 116 alkaline phosphatase 79 On 03/17/2021 patient remains in ICU. Patient was placed on mechanical ventilation. FiO2 50%. Concerns for new seizure activity. Neurology services are following recommendation from neurology services is transfer to higher level care due to patient needing MRI and possible neurosurgical consult given his age. Transfer in process to [facility]. Patient remains on small amount of Levophed along with high levels of sedation. Surgical services also following for pneumoperitoneum PEG tube is to dependent drainage. Objective - Vital Signs Vital signs: Vital Signs Temp 99.5 F 03/17/21 08:00 Pulse 77 03/17/21 08:30 Resp 40 H 03/17/21 08:30 BP 101/64 03/17/21 08:30 Pulse Ox 99 03/17/21 08:30 Intake & Output 03/16/21 03/17/21 03/17/21 18:59 06:59 18:59 Intake Total 330.00 2872.49 220 Output Total 505 1615 65 Balance -175.00 1257.49 155 Weight 112.6 kg Intake: IV 230 2390 120 0.9 NaCl Bolus 2000 Piperacillin-Tazobactam 3 200 100 .375 gm In Sodium Chloride 0.9% 100 ml @ 25 mls/hr IVPB Q8HR TERI Rx# :[id number] Potassium replacement 100 Sodium Chloride 0.9% 1, 30 190 20 000 ml @ 10 mls/hr IV . Q24H TERI Rx#:[id number] levETIRAcetam IV 1,000 mg 100 In Saline 1 100ml.bag @ 400 mls/hr IVPB Q12HR TERI Rx#:[id number] Intake, IV Titration 100.00 482.49 100 Amount propofoL 1,000 mg In 100.00 482.49 100 Empty Bag 1 bag @ Titrate IV .Q0M TERI Rx#: [id number] Output: Gastric Drainage 160 Urine 505 1455 65 Other: Voiding Method Indwelling Catheter Indwelling Catheter ABP, PAP, CO, CI - Last Documented Arterial Blood Pressure 102/72 - Exam In general patient is intubated through tracheostomy, he is alert off sedation HEENT head normocephalic and atraumatic Neck is supple no JVD no goiter no lymphadenopathy Chest exam reveals a few scattered crackles no wheezing Cardiac exam reveals regular heart sounds no gallops no murmurs Abdomen is soft nontender no organomegaly with normal bowel sounds, slightly distended Extremity exam reveals no edema no cyanosis or clubbing Neurological examination reveals no gross focal deficit - Labs CBC & Chem 7: 03/17/21 04:21 03/17/21 04:21 Labs: Abnormal Lab Results - Last 24 Hours (Table) 03/16/21 03/16/21 03/16/21 Range/Units 13:37 13:37 13:56 WBC 19.8 H (3.8-10.6) k/uL Neutrophils # 17.6 H (1.3-7.7) k/uL Lymphocytes # 0.7 L (1.0-4.8) k/uL D-Dimer (<0.60) mg/L FEU ABG pO2 232 H (83-108) mmHg ABG O2 Saturation 99.7 H (94-97) % Sodium (137-145) mmol/L Chloride (98-107) mmol/L Carbon Dioxide 18 L (22-30) mmol/L BUN 24 H (9-20) mg/dL Creatinine (0.66-1.25) mg/dL Glucose 148 H (74-99) mg/dL POC Glucose (mg/dL) (75-99) mg/dL Phosphorus 7.4 H (2.5-4.5) mg/dL Magnesium (1.6-2.3) mg/dL Total Bilirubin 1.4 H (0.2-1.3) mg/dL ALT 116 H (4-49) U/L Lactate Dehydrogenase (313-618) U/L C-Reactive Protein (<1.0) mg/dL Total Protein (6.3-8.2) g/dL Albumin (3.5-5.0) g/dL 03/16/21 03/16/21 03/16/21 Range/Units 18:03 21:28 23:20 WBC (3.8-10.6) k/uL Neutrophils # (1.3-7.7) k/uL Lymphocytes # (1.0-4.8) k/uL D-Dimer (<0.60) mg/L FEU ABG pO2 231 H (83-108) mmHg ABG O2 Saturation 99.5 H (94-97) % Sodium (137-145) mmol/L Chloride (98-107) mmol/L Carbon Dioxide (22-30) mmol/L BUN (9-20) mg/dL Creatinine (0.66-1.25) mg/dL Glucose (74-99) mg/dL POC Glucose (mg/dL) 138 H 102 H (75-99) mg/dL Phosphorus (2.5-4.5) mg/dL Magnesium (1.6-2.3) mg/dL Total Bilirubin (0.2-1.3) mg/dL ALT (4-49) U/L Lactate Dehydrogenase (313-618) U/L C-Reactive Protein (<1.0) mg/dL Total Protein (6.3-8.2) g/dL Albumin (3.5-5.0) g/dL 03/17/21 03/17/21 03/17/21 Range/Units 04:21 04:21 04:21 WBC 15.9 H (3.8-10.6) k/uL Neutrophils # 12.9 H (1.3-7.7) k/uL Lymphocytes # (1.0-4.8) k/uL D-Dimer 14.75 H (<0.60) mg/L FEU ABG pO2 (83-108) mmHg ABG O2 Saturation (94-97) % Sodium 135 L (137-145) mmol/L Chloride 108 H (98-107) mmol/L Carbon Dioxide 17 L (22-30) mmol/L BUN (9-20) mg/dL Creatinine 0.52 L (0.66-1.25) mg/dL Glucose 115 H (74-99) mg/dL POC Glucose (mg/dL) (75-99) mg/dL Phosphorus (2.5-4.5) mg/dL Magnesium 2.6 H (1.6-2.3) mg/dL Total Bilirubin (0.2-1.3) mg/dL ALT 98 H (4-49) U/L Lactate Dehydrogenase 972 H (313-618) U/L C-Reactive Protein 3.6 H (<1.0) mg/dL Total Protein 5.7 L (6.3-8.2) g/dL Albumin 3.4 L (3.5-5.0) g/dL 03/17/21 Range/Units 05:11 WBC (3.8-10.6) k/uL Neutrophils # (1.3-7.7) k/uL Lymphocytes # (1.0-4.8) k/uL D-Dimer (<0.60) mg/L FEU ABG pO2 72 L (83-108) mmHg ABG O2 Saturation 93.2 L (94-97) % Sodium (137-145) mmol/L Chloride (98-107) mmol/L Carbon Dioxide (22-30) mmol/L BUN (9-20) mg/dL Creatinine (0.66-1.25) mg/dL Glucose (74-99) mg/dL POC Glucose (mg/dL) (75-99) mg/dL Phosphorus (2.5-4.5) mg/dL Magnesium (1.6-2.3) mg/dL Total Bilirubin (0.2-1.3) mg/dL ALT (4-49) U/L Lactate Dehydrogenase (313-618) U/L C-Reactive Protein (<1.0) mg/dL Total Protein (6.3-8.2) g/dL Albumin (3.5-5.0) g/dL Microbiology - Last 24 Hours (Table) 03/16/21 00:12 Gram Stain - Preliminary Sputum Sputum Culture - Preliminary Assessment and Plan Plan: 1. Acute COVID-19 pneumonia patient started on IV Decadron and subcu Lovenox pulmonary consultation was requested, patient developed acute hypoxic respiratory failure requiring intubation and mechanical ventilation 2. Underlying history of asthma 3. Underlying history of morbid obesity 4. Hyponatremia 5. Elevated liver enzymes, will monitor closely 6. Pneumoperitoneum post PEG tube insertion. Surgical services are following PEG tube to dependent drainage 7. Acute and new onset seizure activity. Patient was started on Keppra and treated with Ativan. Neurology services are following recommend transfer to higher level of care for possible MRI and neurosurgical consult 8. Methicillin sensitive staph aureus and maxilla catarrhalis tracheal bronchitis bronchopneumonia Patient remains in the intensive care unit Critical care surgical and neurology following Discussed with case management are working on transferred to [facility] for higher level care
[2021-03-17 11:44] LABS: Glucose,Whole Blood 110 mg/dL (75-99)
[2021-03-17] MEDS: CLEVIDIPINE BUTYRATE 25 MG in EMPTY BAG 1 BAG IV SCH (12:21)
--- NOTE | 2021-03-17 13:32 | CDI ---
Documentation Clarification Form Date: 03/17/2021 01:20:02 PM From: Chelle OropezaWardKALI gallardo, CCDS Admit Date: 02/24/2021 01:14:00 PM Patient Name: Osmar Drummond Visit Number: [id number] Discharge Date: ATTENTION: The Clinical Documentation Specialists (CDI) and [facility] Coding Staff appreciate your assistance in clarifying documentation. Please respond to the clarification below the line at the bottom and electronically sign. The CDI & [facility] Coding staff will review the response and follow-up if needed. Please note: Queries are made part of the Legal Health Record. If you have any questions, please contact the author of this message via ITS. Dr. Rk Vargas: Per the 03/16 General Surgery Progress Note: Pneumoperitoneum likely due to small microperforation where the sutures have pulled through the stomach wall at the PEG tube site. Additional clarification is requested regarding the relationship, if any, that exists between the diagnosis and the procedure. Patients Admitting Diagnosis 02/24: COVID 19 Pneumonia, Acute Hypoxic Respiratory Failure. 03/01: Ileus requiring decompression via NGT. Tracheostomy & EGD w/PEG tube placement. Post-Operative Diagnosis 03/10: Respiratory Failure and Malnutrition Procedure 03/10: Tracheostomy, EGD with PEG tube placement. History/Risk Factors per the 02/24 ED Note Past Medical History: Asthma, Nonsmoker. Clinical Indicators: Presented to the ED on 02/24 via EMS with SOB, + COVID, Chest tightness, persistent cough. No significant medical history or prescription medication. 03/03 Abd XR: Ileus 03/07 Abd XR: Reduction in amount of dilated bowel loops, NGT noted. 03/15 Abd XR: Lucency delineating the right main abdominal structures may represent pneumoperitoneum. CT abdomen pelvis is recommended. Gaseous dilatation of the left hemiabdominal small bowel loops may represent ileus versus incomplete small bowel obstruction. 12 mm in radiopaque density over the left upper quadrant of the abdomen not seen on prior comparison. Uncertain etiology. Recommend clinical correlation to check for objects external to patient. Treatment as of 03/15: IV Dexmedetomidine, IV Dilaudid, K Bicarb, IV Zosyn, IV Ativan, IV Keppra, IV Levophed, IV fluid 2,000 mls @ 999 mls/hr q2H, IV KCL, Lovenoz sq. What relationship, if any, exists between the diagnosis of pneumoperitoneum and the procedure (PEG tube insertion): [ X ] Pneumoperitoneum is a complication of surgical procedure [ ] Pneumoperitoneum is an expected outcome of the surgical procedure [ ] Other please specify: [ ] Unable to determine (Template Last Revised: January 2021) MTDD
--- NOTE | 2021-03-17 13:32 | P.PN ---
Subjective Progress Note Date: 03/17/21 CHIEF COMPLAINT: Covid pneumonia HISTORY OF PRESENT ILLNESS: The patient is a 35 year old male with Covid pneumonia status post trach and PEG. Patient had seizures yesterday afternoon and did require to be reintubated. Patient has been started on Keppra. He also received IV Ativan. He is followed by neurology. He had EEG that showed some abnormalities findings consistent with metabolic encephalopathy or medications. Computed tomography scan of the brain has shown mild hydrocephalus. Neurology is recommending transfer to higher level of care because patient needs MRI and MRA MRV of the brain. He is afebrile. WBC is 15.9 lactate 0.9. He is on a small dose of Levophed. And he is also on Diprovan. His abdomen is soft. No stool. He's had 160 mL gastric output. Lovenox has been restarted by critical care service. Abdominal x-ray from yesterday shows large pneumoperitoneum. Repeat abdominal x-ray for today also showing evidence of pneumoperitoneum unchanged. Patient seen and examined with Dr. Nicholson, who is covering for Dr. Vargas PHYSICAL EXAM: VITAL SIGNS: Reviewed. GENERAL: Well-developed in no acute distress. HEENT: No sclera icterus. Extraocular movements grossly intact. Moist buccal mucosa. Head is atraumatic, normocephalic. Trach site minimal bleeding noted around trach site ABDOMEN: Soft. Nondistended. PEG tube site minimal old blood noted around PEG tube NEUROLOGIC: Intubated ASSESSMENT: 1. Pneumoperitoneum likely due to small microperforation where the sutures have pulled through the stomach wall at the PEG tube site 2. Acute hypoxic respiratory failure secondary to COVID-19 pneumonia with prolonged mechanical ventilation status post tracheostomy placement 3. Severe protein calorie malnutrition status post PEG tube placement 4. Ileus resolved PLAN: -Continue to monitor patient closely -Continue PEG tube at dependent drainage -Tube feedings on hold -No oral medications through PEG tube -Continue empiric antibiotics -Continue ICU management -Continue supportive care Physician Collaborating Supervising Physician note has been reviewed by physician. Signing provider agrees with the documented findings, assessment, and plan of care. Objective - Vital Signs Vital signs: Vital Signs Temp 99.1 F 03/17/21 12:00 Pulse 55 L 03/17/21 13:15 Resp 37 H 03/17/21 13:15 BP 105/67 03/17/21 13:15 Pulse Ox 97 03/17/21 13:15 Intake & Output 03/16/21 03/17/21 03/17/21 18:59 06:59 18:59 Intake Total 330.00 2872.49 572.131 Output Total 505 1615 155 Balance -175.00 1257.49 417.131 Weight 112.6 kg 112.6 kg Intake: IV 230 2390 395 0.9 NaCl Bolus 2000 Piperacillin-Tazobactam 3 200 100 75 .375 gm In Sodium Chloride 0.9% 100 ml @ 25 mls/hr IVPB Q8HR [facility]I Rx# :[id number] Potassium replacement 200 Sodium Chloride 0.9% 1, 30 190 20 000 ml @ 10 mls/hr IV . Q24H [facility]I Rx#:[id number] levETIRAcetam IV 1,000 mg 100 100 In Saline 1 100ml.bag @ 400 mls/hr IVPB Q12HR [facility]I Rx#:[id number] Intake, IV Titration 100.00 482.49 177.131 Amount propofoL 1,000 mg In 100.00 482.49 177.131 Empty Bag 1 bag @ Titrate IV .Q0M TERI Rx#: [id number] Output: Gastric Drainage 160 Urine 505 1455 155 Other: Voiding Method Indwelling Catheter Indwelling Catheter ABP, PAP, CO, CI - Last Documented Arterial Blood Pressure 102/72 - Labs CBC & Chem 7: 03/17/21 04:21 03/17/21 04:21 Labs: Abnormal Lab Results - Last 24 Hours (Table) 03/16/21 03/16/21 03/16/21 Range/Units 13:37 13:37 13:56 WBC 19.8 H (3.8-10.6) k/uL Neutrophils # 17.6 H (1.3-7.7) k/uL Lymphocytes # 0.7 L (1.0-4.8) k/uL D-Dimer (<0.60) mg/L FEU ABG pO2 232 H (83-108) mmHg ABG O2 Saturation 99.7 H (94-97) % Sodium (137-145) mmol/L Chloride (98-107) mmol/L Carbon Dioxide 18 L (22-30) mmol/L BUN 24 H (9-20) mg/dL Creatinine (0.66-1.25) mg/dL Glucose 148 H (74-99) mg/dL POC Glucose (mg/dL) (75-99) mg/dL Phosphorus 7.4 H (2.5-4.5) mg/dL Magnesium (1.6-2.3) mg/dL Total Bilirubin 1.4 H (0.2-1.3) mg/dL ALT 116 H (4-49) U/L Lactate Dehydrogenase (313-618) U/L C-Reactive Protein (<1.0) mg/dL Total Protein (6.3-8.2) g/dL Albumin (3.5-5.0) g/dL 03/16/21 03/16/21 03/16/21 Range/Units 18:03 21:28 23:20 WBC (3.8-10.6) k/uL Neutrophils # (1.3-7.7) k/uL Lymphocytes # (1.0-4.8) k/uL D-Dimer (<0.60) mg/L FEU ABG pO2 231 H (83-108) mmHg ABG O2 Saturation 99.5 H (94-97) % Sodium (137-145) mmol/L Chloride (98-107) mmol/L Carbon Dioxide (22-30) mmol/L BUN (9-20) mg/dL Creatinine (0.66-1.25) mg/dL Glucose (74-99) mg/dL POC Glucose (mg/dL) 138 H 102 H (75-99) mg/dL Phosphorus (2.5-4.5) mg/dL Magnesium (1.6-2.3) mg/dL Total Bilirubin (0.2-1.3) mg/dL ALT (4-49) U/L Lactate Dehydrogenase (313-618) U/L C-Reactive Protein (<1.0) mg/dL Total Protein (6.3-8.2) g/dL Albumin (3.5-5.0) g/dL 03/17/21 03/17/21 03/17/21 Range/Units 04:21 04:21 04:21 WBC 15.9 H (3.8-10.6) k/uL Neutrophils # 12.9 H (1.3-7.7) k/uL Lymphocytes # (1.0-4.8) k/uL D-Dimer 14.75 H (<0.60) mg/L FEU ABG pO2 (83-108) mmHg ABG O2 Saturation (94-97) % Sodium 135 L (137-145) mmol/L Chloride 108 H (98-107) mmol/L Carbon Dioxide 17 L (22-30) mmol/L BUN (9-20) mg/dL Creatinine 0.52 L (0.66-1.25) mg/dL Glucose 115 H (74-99) mg/dL POC Glucose (mg/dL) (75-99) mg/dL Phosphorus (2.5-4.5) mg/dL Magnesium 2.6 H (1.6-2.3) mg/dL Total Bilirubin (0.2-1.3) mg/dL ALT 98 H (4-49) U/L Lactate Dehydrogenase 972 H (313-618) U/L C-Reactive Protein 3.6 H (<1.0) mg/dL Total Protein 5.7 L (6.3-8.2) g/dL Albumin 3.4 L (3.5-5.0) g/dL 03/17/21 03/17/21 Range/Units 05:11 11:43 WBC (3.8-10.6) k/uL Neutrophils # (1.3-7.7) k/uL Lymphocytes # (1.0-4.8) k/uL D-Dimer (<0.60) mg/L FEU ABG pO2 72 L (83-108) mmHg ABG O2 Saturation 93.2 L (94-97) % Sodium (137-145) mmol/L Chloride (98-107) mmol/L Carbon Dioxide (22-30) mmol/L BUN (9-20) mg/dL Creatinine (0.66-1.25) mg/dL Glucose (74-99) mg/dL POC Glucose (mg/dL) 110 H (75-99) mg/dL Phosphorus (2.5-4.5) mg/dL Magnesium (1.6-2.3) mg/dL Total Bilirubin (0.2-1.3) mg/dL ALT (4-49) U/L Lactate Dehydrogenase (313-618) U/L C-Reactive Protein (<1.0) mg/dL Total Protein (6.3-8.2) g/dL Albumin (3.5-5.0) g/dL Microbiology - Last 24 Hours (Table) 03/16/21 00:12 Gram Stain - Preliminary Sputum Sputum Culture - Preliminary
--- NOTE | 2021-03-17 13:47 | CDI ---
Documentation Clarification Form Date: 03/17/2021 01:36:21 PM From: Chelle WardKALI gallardo, CCDS Admit Date: 02/24/2021 01:14:00 PM Patient Name: Osmar Drummond Visit Number: [id number] Discharge Date: ATTENTION: The Clinical Documentation Specialists (CDI) and [facility] Coding Staff appreciate your assistance in clarifying documentation. Please respond to the clarification below the line at the bottom and electronically sign. The CDI & [facility] Coding staff will review the response and follow-up if needed. Please note: Queries are made part of the Legal Health Record. If you have any questions, please contact the author of this message via ITS. Dr. Abdon Cowan: The patient presented with the following clinical indicators. Additional clarification regarding the etiology/cause of the clinical indicators is requested. History/Risk Factors per the 02/24 ED Note Past Medical History: Asthma, non smoker, no significant medical history. Clinical Indicators: Presented to the ED on 02/24 via EMS with SOB, COVID +. Admitted with same. Developed ileus on 03/01 requiring decompression with NGT. Developed pneumoperitoneum on 03/15 status post PEG tube insertion on 03/10. 02/24 VS: T 103, P 92, R 18 (SOB, cough), BP 124/77 - 115/75; PO 92 RA - 96 4Lnc. BMI: 36.7 02/24 LAB: WBC 4.2, Neut 3.4, Lymph 0.6, D Dimer 0.75, Ferritin 2011.5, AST 98, ALT 57, LDH 1623, CRP 41.1 COVID: Scanned report from [facility] 02/23: Positive. 03/01 VS: T 99.9, P 112, R 30, BP 117/83, PO 84 (vent) 03/01 LAB: WBC 19.9, Pl Ct 515, Neut 17.4, LDH 2035, CRP 4.5 Treatment 02/24: IV Decadron, IV fluid 1,000 mls @ 999 mls/hr q1H, Lovenox sq, INH Ventolin. 03/01 IV Morphine, IV Actemra, IV Propofol, INH Duoneb, Intubated, IV Nimbex 03/04: IV Vancoymcin, IV Rocephin, IV Ampicillin, IV Cefazolin 5/6 IV Levophed. In your professional opinion, please clarify if these findings signify one of the following conditions: [ ] Sepsis POA [ ] Sepsis, Not POA [ ] Severe Sepsis with organ failure [ ] Septic Shock [ ] Other, please specify [ ] Unable to determine (Template Last Reviewed: December 2020) sepsis POA MTDD
[2021-03-17] MEDS ORDERED: MVI, ADULT NO.4 WITH VIT K 10 ML, TRACE (CONC-1ML/DOSE) 1 ML, SODIUM ACETATE 40 MEQ, PO... IV ONE ×6 (16:00)
--- NOTE | 2021-03-17 17:23 | CT ---
EXAMINATION TYPE: CT brain wo con DATE OF EXAM: 03/17/2021 COMPARISON: Yesterday HISTORY: COVID hypoxia CT DLP: 1102.6 mGycm Automated exposure control for dose reduction was used. Ventricles are large for the patient's age. There is no mass effect nor midline shift. There is no si gn of intracranial hemorrhage. The calvarium is intact. There is no evidence of cerebral edema. IMPRESSION: There is some hydrocephalus without change compared to old exam. No acute intracranial abnormality. R ight maxillary sinusitis noted unchanged.
[2021-03-17] MEDS: NOREPINEPHRINE 32 MG in SODIUM CHLORIDE 0.9% 218 ML IV SCH (17:30)
[2021-03-17 17:33] LABS: Glucose,Whole Blood 110 mg/dL (75-99)
--- NOTE | 2021-03-17 17:41 | CT ---
EXAMINATION TYPE: CT angio head neck DATE OF EXAM: 03/17/2021 COMPARISON: None HISTORY: COVID hypoxia CT DLP: 682.6 mGycm Automated exposure control for dose reduction was used. CONTRAST: Performed with IV Contrast, patient injected with 65 mL of Isovue 370. Images were obtained from the aortic arch to the vertex of the brain with IV contrast. There are 3-D post processed images. There is tracheostomy tube. There is normal branching pattern of the great vessels on the aortic arch . There is bilateral arterial flow in the subclavian arteries. There is arterial flow in the common i nternal and external carotid arteries bilaterally. There is arterial flow in both vertebral arteries. Right vertebral artery is larger than the left. There is wide patency of the carotid artery bifurcat ions. There is no evidence of carotid or vertebral artery aneurysm or dissection. There is arterial flow in the anterior middle and posterior cerebral arteries. I see no evidence of i ntracranial aneurysm or neovascularity. There is no mass effect. There is no sign of hemodynamic sten osis. There is normal enhancement of the venous sinuses. IMPRESSION: Negative CT angiogram of the neck. Negative CT angiogram of the brain. Bilateral maxillary sinusitis is noted that is worse on the right side.
--- NOTE | 2021-03-17 19:01 | P.PN ---
Subjective Progress Note Date: 03/17/21 Patient was seen for a follow-up. Patient has tracheostomy, on mechanical ventilator. Patient is currently on propofol 60 mcg/kg/m. Per nursing report, when the dose was decreased to 50 g, he did open his eyes. I went in to see the patient, and please refer to examination. Patient woke up and was able to answer some questions. Patient denied headache by nodding his head. Denies any problem with the vision. Objective - Vital Signs Vital signs: Vital Signs Temp 99.1 F 03/17/21 12:00 Pulse 55 L 03/17/21 13:15 Resp 37 H 03/17/21 13:15 BP 105/67 03/17/21 13:15 Pulse Ox 97 03/17/21 13:15 Intake & Output 03/16/21 03/17/21 03/17/21 18:59 06:59 18:59 Intake Total 330.00 2872.49 668.066 Output Total 505 1615 155 Balance -175.00 1257.49 513.066 Weight 112.6 kg 112.6 kg Intake: IV 230 2390 395 0.9 NaCl Bolus 2000 Piperacillin-Tazobactam 3 200 100 75 .375 gm In Sodium Chloride 0.9% 100 ml @ 25 mls/hr IVPB Q8HR [facility]I Rx# :[id number] Potassium replacement 200 Sodium Chloride 0.9% 1, 30 190 20 000 ml @ 10 mls/hr IV . Q24H [facility]I Rx#:[id number] levETIRAcetam IV 1,000 mg 100 100 In Saline 1 100ml.bag @ 400 mls/hr IVPB Q12HR [facility]I Rx#:[id number] Intake, IV Titration 100.00 482.49 273.066 Amount propofoL 1,000 mg In 100.00 482.49 273.066 Empty Bag 1 bag @ Titrate IV .Q0M TERI Rx#: [id number] Output: Gastric Drainage 160 Urine 505 1455 155 Other: Voiding Method Indwelling Catheter Indwelling Catheter ABP, PAP, CO, CI - Last Documented Arterial Blood Pressure 102/72 - Exam On examination patient was sedated with propofol. Patient's pupils were round and reacting to light. Oculocephalics are present. Patient did wake up on further testing. He did open his eyes, made eye contact, followed directions very well. He nodded "no" for headache or any visual problems. Patient's extraocular muscles are intact. Face appears symmetric. Patient's strength was about set up person 4, generalized weak. Able to wiggle his both feet. Reflexes are symmetric. Tone is equal bilaterally. No obvious seizure activity noted. Patient not able to cooperate fully partly because of being on sedation. Per nursing report, when the sedation is decreased, he becomes agitated, and very restless. - Labs CBC & Chem 7: 03/17/21 04:21 03/17/21 04:21 Labs: Abnormal Lab Results - Last 24 Hours (Table) 03/16/21 03/16/21 03/16/21 Range/Units 18:03 21:28 23:20 WBC (3.8-10.6) k/uL Neutrophils # (1.3-7.7) k/uL D-Dimer (<0.60) mg/L FEU ABG pO2 231 H (83-108) mmHg ABG O2 Saturation 99.5 H (94-97) % Sodium (137-145) mmol/L Chloride (98-107) mmol/L Carbon Dioxide (22-30) mmol/L Creatinine (0.66-1.25) mg/dL Glucose (74-99) mg/dL POC Glucose (mg/dL) 138 H 102 H (75-99) mg/dL Magnesium (1.6-2.3) mg/dL ALT (4-49) U/L Lactate Dehydrogenase (313-618) U/L C-Reactive Protein (<1.0) mg/dL Total Protein (6.3-8.2) g/dL Albumin (3.5-5.0) g/dL 03/17/21 03/17/21 03/17/21 Range/Units 04:21 04:21 04:21 WBC 15.9 H (3.8-10.6) k/uL Neutrophils # 12.9 H (1.3-7.7) k/uL D-Dimer 14.75 H (<0.60) mg/L FEU ABG pO2 (83-108) mmHg ABG O2 Saturation (94-97) % Sodium 135 L (137-145) mmol/L Chloride 108 H (98-107) mmol/L Carbon Dioxide 17 L (22-30) mmol/L Creatinine 0.52 L (0.66-1.25) mg/dL Glucose 115 H (74-99) mg/dL POC Glucose (mg/dL) (75-99) mg/dL Magnesium 2.6 H (1.6-2.3) mg/dL ALT 98 H (4-49) U/L Lactate Dehydrogenase 972 H (313-618) U/L C-Reactive Protein 3.6 H (<1.0) mg/dL Total Protein 5.7 L (6.3-8.2) g/dL Albumin 3.4 L (3.5-5.0) g/dL 03/17/21 03/17/21 Range/Units 05:11 11:43 WBC (3.8-10.6) k/uL Neutrophils # (1.3-7.7) k/uL D-Dimer (<0.60) mg/L FEU ABG pO2 72 L (83-108) mmHg ABG O2 Saturation 93.2 L (94-97) % Sodium (137-145) mmol/L Chloride (98-107) mmol/L Carbon Dioxide (22-30) mmol/L Creatinine (0.66-1.25) mg/dL Glucose (74-99) mg/dL POC Glucose (mg/dL) 110 H (75-99) mg/dL Magnesium (1.6-2.3) mg/dL ALT (4-49) U/L Lactate Dehydrogenase (313-618) U/L C-Reactive Protein (<1.0) mg/dL Total Protein (6.3-8.2) g/dL Albumin (3.5-5.0) g/dL Microbiology - Last 24 Hours (Table) 03/16/21 00:12 Gram Stain - Preliminary Sputum Sputum Culture - Preliminary Presumptive Staph aureus Assessment and Plan Assessment: * 35-year-old male, with acute Covid-19 pneumonia, status post tracheostomy and PEG placement, improving significantly, had a new onset seizures (x2, half hour apart) witnessed by the staff yesterday on 03/16/2021. Patient has significant post ictal state. Today patient has improved clinically as per examination. Patient denies headache. Computed tomography scan of head showed mild hydrocephalus with no acute process otherwise. Uncertain if the hydrocephalus is new finding or old/congenital. No previous comparison CT head films available. EEG revealed disorganization suggestive of encephalopathy and medication effect. * Acute encephalopathy following seizure, unclear etiology, probable post ictal state, now improved. * Acute hypoxemic respiratory failure, status post tracheostomy and PEG placement. * Large pneumoperitoneum * Tracheobronchitis * Obesity * Elevated liver functions, secondary to fajardo virus infection, improving. Plan: * Repeat computed tomography scan of the head was performed, which reported as "some hydrocephalus without change compared to old exam. No acute intracranial abnormality". Right maxillary sinusitis. On my review, the two studies have different positioning of the head, therefore on axial images hydrocephalus appears slightly worse than yesterday, although on sagittal views appears unchanged. * CTA of head and neck showed no large vessel occlusion. * Suggest patient be transferred to higher level of care because of need for MRI and possible neurosurgery consultation, given his young age. * Continue Keppra 1000 mg IV twice a day. * Other medical/surgical management as per IM and other specialties. * Please do not hesitate to contact me for any further concerns.
[2021-03-17] MEDS: SODIUM CHLORIDE 0.9% 1,000 ML IV SCH (23:56)
[2021-03-18 00:03] LABS: Glucose,Whole Blood 113 mg/dL (75-99)
[2021-03-18 04:52] LABS: ALT 77 U/L (4-49); AST 25 U/L (17-59); African American GFR (CKD) >90 (>60 ml/min/1.73 sqM); Albumin 3.1 g/dL (3.5-5.0); Alkaline Phosphatase 66 U/L (38-126); Anion Gap 4 mmol/L; Blood Urea Nitrogen 11 mg/dL (9-20); Calcium 8.6 mg/dL (8.4-10.2); Carbon Dioxide 27 mmol/L (22-30); Chloride 109 mmol/L (98-107); Glucose 109 mg/dL (74-99); Magnesium 1.9 mg/dL (1.6-2.3); Non-African American GFR(CKD) >90 (>60 ml/min/1.73 sqM); Phosphorus 3.3 mg/dL (2.5-4.5); Potassium 3.7 mmol/L (3.5-5.1); Sodium 140 mmol/L (137-145); Total Protein 5.6 g/dL (6.3-8.2)
[2021-03-18] MEDS: HYDROmorphone 1 MG/ML 1 ML SYRINGE IVP PRN ×2 (04:56→08:56)
--- NOTE | 2021-03-18 05:51 | XR ---
EXAM: XR Chest, 1 View CLINICAL HISTORY: ITS.REASON XR Reason: SOB TECHNIQUE: Frontal view of the chest. COMPARISON: March 17, 2021 persistent bilateral pulmonary opacities, likely representing combination of atelectasis and infiltration. These appear mildly improved. FINDINGS: Lungs: Unremarkable. No acute infiltration, atelectasis or mass. Pleural space: Unremarkable. No pneumothorax or pleural fluid. Heart: Unremarkable. No cardiomegaly. Mediastinum: Unremarkable. Bones/joints: No acute findings. Tubes, lines and devices: Tracheostomy tube in left arm PICC line stable. Upper abdomen: Appearance of pneumoperitoneum beneath the diaphragms is reduced. IMPRESSION: Bilateral areas of infiltration and atelectasis appear mildly improved.
[2021-03-18 06:06] LABS: ABG Base Excess 2.8 mmol/L; ABG HCO3 27 mmol/L (21-25); ABG Oxygen Saturation 98.9 % (94-97); ABG PCO2 37 mmHg (35-45); ABG PH 7.46 (7.35-7.45); ABG PO2 123 mmHg (83-108); ABG TCO2 28 mmol/L (19-24); Allen Test Performed? Yes
[2021-03-18 06:24] LABS: Glucose,Whole Blood 115 mg/dL (75-99)
[2021-03-18 07:26] LABS: Basophils % (A) 0 %; Eosinophils # (A) 0.2 k/uL (0-0.7); Eosinophils % (A) 2 %; HCT 36.5 % (39.0-53.0); HGB 12.5 gm/dL (13.0-17.5); Lymphocytes # (A) 1.2 k/uL (1.0-4.8); Lymphocytes % (A) 11 %; MCH 31.1 pg (25.0-35.0); MCHC 34.3 g/dL (31.0-37.0); MCV 90.7 fL (80.0-100.0); Mean Platelet Volume 9.2; Monocytes # (A) 0.8 k/uL (0-1.0); Monocytes % (A) 7 %; Neutrophils # (A) 8.3 k/uL (1.3-7.7); Neutrophils % (A) 78 %; Platelet Count 163 k/uL (150-450); RBC 4.02 m/uL (4.30-5.90); RDW 15.1 % (11.5-15.5); WBC 10.6 k/uL (3.8-10.6)
[2021-03-18] MEDS: ALBUTEROL HFA INHALER INHALATION SCH ×4 (07:36→21:47)
[2021-03-18] MEDS: METOCLOPRAMIDE 5 MG/ML 2 ML VIAL IVP SCH ×3 (08:41→17:30)
--- NOTE | 2021-03-18 08:47 | P.PN ---
Subjective Progress Note Date: 03/18/21 On , I'm seeing this patient for a follow-up. This is a 35-year-old male patient was in the intensive care unit for respiratory failure due to COVID-19 related pneumonia. The patient intubated and mechanically ventilated on 03/01/2021 and subsequently the patient failed to wean and failed to recover and the patient required tracheostomy tube insertion and a PEG tube insertion for long-term ventilator care and enteral feeding for nutritional support and this was done on 03/10/2021. The patient is currently off sedation and his been off sedation for the past 24 hours. This morning, the patient patient is on a trach shield at 50% FiO2. He is calm and comfortable. He was taken off th e mechanical ventilator 3 am and his been off the mechanical ventilator since. During the course of the treatment, the patient was also cultured to have MSSA and Moraxella catarrhalis in his sputum. He was treated with antibiotics and currently is off antibiotics. Patient is hemodynamically stable on no pressors. He requires Cleviprex on and off for blood pressure control. He is receiving enteral feeding for dentures support with vital high protein at the rate of 33 mL an hour. Chest x-ray still showing diffuse but the pulmonary infiltrates. Inflammatory markers including LDH from is 686 with a CRP of 0.6. His d-dimer level was is still elevated 7.38 the patient was receiving Lovenox 60 mg subcu every 12 hours. Patient otherwise is tolerating enteral feeding for dentures support. The patient has been afebrile and hemodynamically stable. He remains on Decadron 6 mg IV every 12 hours. He is also on Lovenox for deep prophylaxis. Afebrile.Chest x-ray still showing diffuse bilateral interstitial infiltrates most on the right lower lobe and the patient has a PICC line in left upper extremity. Tracheostomy tube is in a good location. 03/14/2021, the patient is being seen for a follow-up. The patient spent the entire day yesterday trach collar at 50%. Overnight, the patient started having some increased oral and orotracheal secretions that were bloody. He was also desaturating. He was placed on 100% trach collar and following that he was placed back on a mechanical ventilator on his previous ventilator settings and he stayed on the assist control mode of the night. This morning, he was switched back to a trach collar at 50%. His current pulse ox is 90%. His chest x-ray showing that the tip of the tracheostomy tube was very high in the trachea and that she possibly may need to be repositioned and pushed in. He is awake and alert. He is off the mechanical ventilator for now. Chest x-ray still showing bilateral pulmonary infiltrates, essentially unchanged compared to yesterday. In terms of his treatment, the patient remains on Decadron 6 mg IV every 24 hours. Inflammatory markers from today of 9.29, LDH level of 1059 and a CRP level of 0.7. His white cell count is at 15.2 and hemoglobin of 13.4. Rest of the electrodes are all within normal limits. He remains on Lovenox for DVT prophylaxis. He is also receiving enteral feeding was nutritional support. The patient is receiving vital high protein at the rate of 33 mL an hour. Note that overnight, he had also to be placed on a low-dose fentanyl which unwilling to discontinue today. He is currently running at 3 mcg/kg per minute of fentanyl drip. He has a PEG tube in place. No abdominal distention. Regular bowel movements. On 03/15/2021, the patient is on the 50% trach collar. He is a bit anxious and tachypneic specially when he is having a communication with other nursing staff and physicians. When left alone, the patient aspirate was done in the mid 30s. He has a Shiley tracheostomy tube in place. He did have some limited amount of bleeding around the Shiley tracheostomy tube and there is no active bleeding at this point in time. No significant cough or sputum production. He is resting comfortably in bed. Physically is getting stronger. A repeat chest x-ray was done today and it showed some small bowel distention and for that reason an abdominal x-ray was done that raised the possibility of small bilateral ileus and at the same time there was a 12 mm opaque density over the left upper quadrant of the abdomen that was not seen on earlier evaluation. Based on his gastric and small bowel distention and the presence of a radiopaque density, general surgery was involved again with the patient be asked to be seen again by general surgery regarding his abnormalities. Meanwhile, the patient is passing flatus, he is still receiving enteral feeding for nutritional support in the form of vital high protein at the rate of 53 mL an hour. On examination, he denies having any significant abdominal distention or tenderness. Bowel sounds are present. No tympany on examination. His chest x-ray still showing bilateral pulmonary infiltrates consistent with COVID-19 related pneumonia. D- dimer is down to 8.7. His rest of the inflammatory markers shows a LDH level of 1331 and a CRP of 2.2. He is weaned down on his Decadron to 4 mg IV every 24 hours. He is also on Lovenox 60 mg subcu every 12 hours. On today's evaluation of 03/16/2021, I'm seeing this patient for a follow-up. The patient remains on trach collar at 60%. He seems to be quite comfortable. He did not go on a mechanical ventilator overnight and he stayed on trach collar throughout the day and overnight. Abdominal films and the chest from yesterday showed air under the diaphragm. There was free air and there was also some gastric distention. I consulted with general surgery and the patient was seen by Dr. Rk encarnacion. A CAT scan of the abdomen and pelvis was done and based on the findings, there was confirmation of pneumoperitoneum that was moderate to severe amount and the patient had satisfactory the was a shooting of the PEG tube. It was noted also that the sutures and the clips hasn't migrated and his general surgeon is aware of that nevertheless, despite these findings, the patient does have a soft abdomen. The patient was made nothing by mouth yesterday. His activity was drained to gravity and his produce approximately 400 mL of gastric/bilious material. The patient's white cell count is at 12.7. Hemoglobin is at 14.3. No evidence of any GI bleeding. Platelet count is at 193. His electrolytes all within normal limits. No significant acidosis. Renal function stable with a creatinine of 0.7. LFTs are also adequate for now some elevation in the ALT was noted. Meanwhile, d-dimer is at 10.09. LDH level was not checked from today. His chest x-ray is unchanged and the patient continues to have pneumoperitoneum bilaterally. There is air under the diaphragms bilaterally. The patient remains on Decadron 4 mg IV every 24 hours and the patient is also on Lovenox 60 mg subcu every 12 hours which was placed on hold by general surgery. He is currently on IV Zosyn and this was started yesterday by general surgery as an empiric antibiotic coverage. He is on no sedation. Is awake and alert. His communicating. At times he gets worked up and short of breath and there may be a component of anxiety. On 03/17/2021, the patient is being seen in follow-up in the intensive care unit. Unfortunately, several events occurred since yesterday. After my rounds, at around noontime, the patient went into a sudden seizure activity. This was witnessed right the nursing staff and the respiratory therapist. The patient had tonic-clonic jerking activity and his eyes were rolling and the patient lost consciousness. This lasted for around 1-2 minutes. During that time, the patient was given Ativan IV and following that he was started on Keppra. Subsequently, the patient had another bout of seizure activity and that point he was not regaining consciousness back and probably was due to post ictal state. At that point, the patient was started on propofol which is still running at a dose of 70 mcg/kg per minute. EEG was done yesterday while the patient was on propofol and Keppra and the EEG showed some abnormalities with this organized background intermixed slow and high frequency activity. There was obvious signs of generalized cerebral dysfunction. No definite seizure activity was seen on that study. The CAT scan of the brain was also done that showed no acute abnormalities. Meanwhile, the patient's was also seen by neurology. Overnight, he became slightly hypotensive. He required low-dose norepinephrine infusion wh ich was ultimately weaned off and discontinued and currently the patient is on no pressors. In other issues ongoing with pneumoperitoneum. The patient was seen by general surgery. Abdomen remains soft and with resulting there is any evidence of any acute abdomen that requires immediate surgical intervention. X- ray still showing air under the diaphragm bilaterally in the abdomen and x-rays also showing pneumoperitoneum. On yesterday's evaluation and based on the ongoing neurologic changes, blood gas was rechecked and the patient did not show any significant acidosis. His pH was 7.35 with a pCO2 of 38 and pO2 of 31 and this was done while the patient on mechanical ventilator within assist-control of 32, FiO2 85% with a tidal volume of 420 in the rate of 32 and PEEP of 5. FiO2 was weaned down to 50% and the patient's morning blood gases showed a pH of 7.37 with a pCO2 of 36 and pO2 of 72. Chest x-ray still showing diffuse but the pulmonary infiltrates consistent with COVID-19 related pneumonia. His tracheostomy tube is in a good location. In terms of his inflammatory markers, and d-dimer today is at 14.7. His LDH level is at 972 and his CRP level is at 3.6. He is afebrile this morning. He was running fevers yesterday and his temperature was as high as 100.9. He is covered with broad-spectrum antibiotics and the patient is currently still on a combination of Decadron 4 mg IV every 24 hours and the patient is also on IV Zosyn. I have the patient off Lovenox for surgical recommendation should he require any surgical intervention. He has aggressive compression devices to lower extremities bilaterally. At least going back to Lovenox at a dose of 40 mg subcu once a day, prophylactic dose. 8 2020, the patient is being seen for a follow-up. The patient is currently on a mechanical ventilator. The patient is posterior gastric tube insertion. The patient had to be supported again with the mechanical ventilator as the patient required sedation in follow-up propofol. This morning, his back on assist control mode with a tidal volume of 420, rate of 26, FiO2 of 50% and a PEEP of 5. Chest x-ray showing limited by the pulmonary infiltrates in lung bases bi laterally. The pneumoperitoneum can be appreciated on the right. The last agree on the left. No evidence of any pneumothorax. The patient is a PICC line in the left upper extremity. Showed a pH of 7.46 with a pCO2 of 37 and pO2 of 123. As such, the patient is stable for the pulmonary standpoint. Noted the patient was able to tolerate trach collar for several days prior to going back on a mechanical ventilator and this was done as the patient had neurologic complications manifesting itself as episodic seizures. Not had any seizures over the past 24 hours. The most recent EEG showed no evidence of any epileptic focus. Nevertheless, the CAT scan of the brain showed some degree of hydr ocephalus without any change compared to the old exam. I had a discussion with neurology. In fact the neurology recommended transferring this patient to a tertiary care center should be evaluated by neurology and neurosurgery. We tried multiple hospitals regarding this issue and unfortunately the chest that was not successful. I contacted [facility], [facility] and [facility] and all of these hospitals declined the transferred due to lack of bed availability's. Fortunately, the patient has done neurologically well. Currently is on propofol running at 30 mcg/kg per minute. Despite this, he is awake and arousable and is following commands and answering questions. He seems to be quite appropriate. We'll also extremities without any limitation. He is still requiring low-dose norepinephrine which is running at 0.04 mcg/kg per minute. No fevers. No abdominal distention. Abdomen is soft. The patient's PEG tube was essentially drained dependent drainage and output is in the form of initial arterial and the amount is minimal. Occasional general surgery. The surgeon opted to keep the patient nothing by mouth for now and not utilizing the PEG tube and the patient was started on PPN for nutritional support The patient remains on by mouth. He remains on Decadron 4 mg IV every 24 hours. He is back on Lovenox 40 mg subcu every 24 hours. A separate note, the patient was cultured for MRSA in his sputum. He is afebrile. He is oxygenating well. No significant orotracheal secretions. This could be potentially a colonizer. Appropriate phone and will be obtained and the patient is not at any antibiotic coverage regarding MRSA. He is on IV Zosyn as an empiric antibiotic coverage for his underlying pneumoperitoneum. Objective - Vital Signs Vital signs: Vital Signs Temp 99.2 F 03/18/21 04:00 Pulse 89 03/18/21 08:00 Resp 30 H 03/18/21 08:00 BP 100/58 03/18/21 08:00 Pulse Ox 96 03/18/21 08:00 Intake & Output 03/17/21 03/18/21 03/18/21 18:59 06:59 18:59 Intake Total 5676.804 0984.149 134.44 Output Total 610 2125 230 Balance 487.650 -1108.851 -95.56 Weight 112.6 kg 111.2 kg Intake: IV 675 640 40 Mvi, Adult No.4 with Vit 90 330 30 K 10 ml Trace (Conc-1Ml/ Dose) 1 ml Sodium Acetate 40 meq Potassium Acetate 20 meq Calcium Gluconate 1 gm In Amino Acid 5%- D15w 1,000 ml @ 40 mls/hr IV .Q24H [facility] Rx#: [id number] Piperacillin-Tazobactam 3 175 100 .375 gm In Sodium Chloride 0.9% 100 ml @ 25 mls/hr IVPB Q8HR [facility] Rx# :[id number] Potassium replacement 200 Sodium Chloride 0.9% 1, 110 110 10 000 ml @ 10 mls/hr IV . Q24H [facility] Rx#:[id number] levETIRAcetam IV 1,000 mg 100 100 In Saline 1 100ml.bag @ 400 mls/hr IVPB Q12HR [facility] Rx#:[id number] Intake, IV Titration 422.650 376.149 94.44 Amount Norepinephrine 32 mg In 49.584 Sodium Chloride 0.9% 218 ml @ 0.05 MCG/KG/MIN 2. 578 mls/hr IV .Q24H [facility] Rx#:[id number] propofoL 1,000 mg In 373.066 376.149 94.44 Empty Bag 1 bag @ Titrate IV .Q0M [facility] Rx#: [id number] Output: Gastric Drainage 75 160 Urine 535 2125 70 Other: Voiding Method Indwelling Catheter Indwelling Catheter ABP, PAP, CO, CI - Last Documented Arterial Blood Pressure 102/72 - Exam GENERAL EXAM: Sedated, 35-year-old gentleman, on mechanical ventilator, comfortable in no apparent distress. Tracheostomy tube is in place, and the patient has a Shiley #[address] The patient is alert and awake and moving all extremities without any limitation. He is following commands. No headaches. No neck stiffness. He is very much appropriate and he can fully communicate despite being on propofol at 30 mcg/kg per minute. Pro pofol is being gradually weaned off. HEAD: Normocephalic. EYES: Normal reaction of pupils, equal size. NOSE: Clear with pink turbinates. THROAT: No erythema or exudates. NECK: Tracheostomy tube secured in place. No masses, no JVD. CHEST: No chest wall deformity. LUNGS: Equal air entry with bilateral coarse crackles. CVS: S1 and S2 normal with no audible murmur, regular rhythm. ABDOMEN: PEG tube exit site clean and dry. No hepatosplenomegaly, normal bowel sounds, no guarding or rigidity. Note that the abdomen is nondistended. No tympany. No tenderness. Bowel sounds are present. Some dried of bloody secretions around the PEG tube orifice SPINE: No scoliosis or deformity SKIN: No rashes CENTRAL NERVOUS SYSTEM: Motor weakness especially in the lower extremity is bilaterally negative to prolonged ICU stay and myopathy related to critical care illness. Otherwise, the patient is fully alert and awake and communicating. No focal neurological deficit. No cranial nerve deficits. No seizure activity has been noted over the past 24 hours. EXTREMITIES: There is no peripheral edema. No clubbing, no cyanosis. Peripheral pulses are intact. - Labs CBC & Chem 7: 03/18/21 03:27 03/18/21 03:27 Labs: Abnormal Lab Results - Last 24 Hours (Table) 03/17/21 03/17/21 03/18/21 Range/Units 11:43 17:32 00:01 RBC (4.30-5.90) m/uL Hgb (13.0-17.5) gm/dL Hct (39.0-53.0) % Neutrophils # (1.3-7.7) k/uL ABG pH (7.35-7.45) ABG pO2 (83-108) mmHg ABG HCO3 (21-25) mmol/L ABG Total CO2 (19-24) mmol/L ABG O2 Saturation (94-97) % Chloride (98-107) mmol/L Creatinine (0.66-1.25) mg/dL Glucose (74-99) mg/dL POC Glucose (mg/dL) 110 H 110 H 113 H (75-99) mg/dL ALT (4-49) U/L Total Protein (6.3-8.2) g/dL Albumin (3.5-5.0) g/dL 03/18/21 03/18/21 03/18/21 Range/Units 03:27 03:27 06:00 RBC 4.02 L (4.30-5.90) m/uL Hgb 12.5 L (13.0-17.5) gm/dL Hct 36.5 L (39.0-53.0) % Neutrophils # 8.3 H (1.3-7.7) k/uL ABG pH 7.46 H (7.35-7.45) ABG pO2 123 H (83-108) mmHg ABG HCO3 27 H (21-25) mmol/L ABG Total CO2 28 H (19-24) mmol/L ABG O2 Saturation 98.9 H (94-97) % Chloride 109 H (98-107) mmol/L Creatinine 0.53 L (0.66-1.25) mg/dL Glucose 109 H (74-99) mg/dL POC Glucose (mg/dL) (75-99) mg/dL ALT 77 H (4-49) U/L Total Protein 5.6 L (6.3-8.2) g/dL Albumin 3.1 L (3.5-5.0) g/dL 03/18/21 Range/Units 06:23 RBC (4.30-5.90) m/uL Hgb (13.0-17.5) gm/dL Hct (39.0-53.0) % Neutrophils # (1.3-7.7) k/uL ABG pH (7.35-7.45) ABG pO2 (83-108) mmHg ABG HCO3 (21-25) mmol/L ABG Total CO2 (19-24) mmol/L ABG O2 Saturation (94-97) % Chloride (98-107) mmol/L Creatinine (0.66-1.25) mg/dL Glucose (74-99) mg/dL POC Glucose (mg/dL) 115 H (75-99) mg/dL ALT (4-49) U/L Total Protein (6.3-8.2) g/dL Albumin (3.5-5.0) g/dL Microbiology - Last 24 Hours (Table) 03/16/21 00:12 Gram Stain - Preliminary Sputum Sputum Culture - Preliminary Presumptive Staph aureus Assessment and Plan Plan: 1 Acute hypoxemic respiratory failure, secondary to COVID 19 pneumonia/pneumonitis, requiring intubation and mechanical ventilation on 0 03/01/2021. Failure to progress on mechanical ventilation, tracheostomy tube placement and PEG tube placed on 03/10/2021. She was off the mechanical ventilator for several days. Subsequently, his condition decompensated the patient developed new onset seizure activity that was noted yesterday and the patient accordingly had to be placed back on propofol and he was associated with the mechanical ventilator. Oxygenation was noted. Blood gases was reviewed. Chest x-ray was reviewed. Infiltrates in lung bases bilaterally, and residual of over 19 related pneumonia. Sputum was positive for MRSA. Infection is doubtful. We'll monitor. We'll hold off antibiotic treatment. We'll check a pro-calcitonin level again. He is afebrile. No signs of any respiratory decompensation and the patient be able to transition himself to trach collar once off propofol. 2 acute and new onset seizure activity, treated , currently on Keppra 3 pneumoperitoneum, post PEG tube insertion. Of any acute abdomen. Lactic acid levels have been low. The patient is an empiric antibiotic coverage with IV Zosyn. Gen. surgery opted to give the patient nothing by mouth and as such TPN was given for nutritional support. 4 history of Methicillin sensitive staph aureus and Moraxella catarrhalis tracheobronchitis/bronchopneumonia, 5 Morbid obesity. 6 Possible sleep apnea syndrome. 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 Plan: Wean propofol continue Keppra regarding his new onset seizures Keep the patient on mechanical ventilator for now. Possible trach collar again once he is off propofol Continue Decadron 4 mg every 24 hours Keep the patient nothing by mouth Hold tube feeds TPN i Monitor the output from the PEG tube which is attached to dependent drainage Continue IV Zosyn Procal level Lovenox dose of 40 mg subcu every 24 hours Apply compression devices lower extremities Monitor inflammatory markers Repeat chest x-ray in the morning Continue to follow up this case along with general surgery and neurology We'll continue to follow. The case was discussed with the general surgeon/neurology at length. Critically care evaluation, more than 30 minutes Time with Patient: Greater than 30
[2021-03-18] MEDS: DEXAMETHASONE SOD PHOSPHATE 4 MG/ML 1 ML VIAL IV SCH (08:59)
[2021-03-18] MEDS: PIPERACILLIN-TAZOBACTAM 3.375 GM in SODIUM CHLORIDE 0.9% 100 ML IVPB SCH ×2 (08:59→17:00)
[2021-03-18] MEDS: PANTOPRAZOLE 40 MG/10 ML VIAL IV SCH (08:59)
[2021-03-18] MEDS: ENOXAPARIN 40 MG/0.4 ML SYRINGE SQ SCH (08:59)
[2021-03-18] MEDS: MAGNESIUM SULFATE-D5W PMX 1 GM in DEXTROSE/WATER 1 100ML.BAG IVPB SCH ×2 (09:00→10:22)
[2021-03-18] MEDS: POTASSIUM CHLORIDE 10 MEQ in WATER FOR INJECTION 1 100ML.BAG IVPB SCH ×2 (09:00→10:22)
[2021-03-18] MEDS: levETIRAcetam IV 1,000 MG in SALINE 1 100ML.BAG IVPB SCH ×2 (09:01→20:06)
--- NOTE | 2021-03-18 10:31 | P.PN ---
Subjective Progress Note Date: 03/18/21 Osmar Drummond, is a 35-year-old male patient of Dr. Hdz, who presented to [facility] emergency room with a chief complaint of worsening shortness of breath and chest tightness. Patient was also having persistent cough his symptoms started 12 days ago however he had severe worsening of his symptoms in the last 3 days. He stated that last Saturday he was tested for COVID-19, results came back positive on Saturday. He was evaluated in the emergency room vital examination on presentation revealed a temperature of 103 pulse 92 respiration 18 blood pressure 124/77 pulse ox 92% on room air. White blood count was 4.2 hemoglobin 15.4 platelet count 161 sodium 125 potassium 3.9 chloride 88 calcium 7.8 BUN 8 creatinine 0.94 AST 98 ALT 57 LDH 1623 C-reactive protein 41.1 EKG done in the emergency room revealed normal sinus rhythm normal EKG, chest x-ray done in the emergency room revealed patchy bilateral infiltrates compatible with multifocal pneumonia no pneumothorax. Patient was admitted to medical floor pulmonary consultation was requested. On 02/25/2021 patient was seen and examined on the medical floor he is alert and oriented 3 in no distress, he is still complaining of cough and shortness of breath otherwise he denies any complaints there is no fever or chills no hea dache or dizziness no chest pain no nausea or vomiting no abdominal pain no diarrhea no blood in the stools no burning was urination no frequency or urgency and no hematuria. On 02/26/2021 patient was seen and examined on the medical floor he is alert and oriented 3 in no distress he seems to be worse today he is having more tachycardia and tachypnea, his temperature is 99.8 pulse ox is down to 82% on 15 L high flow cannula inflammatory markers are up his LDH is 1735 up from 1440 yesterday C-reactive protein is up to 7.2 up from 6 yesterday d-dimer is up to 1.21 up from 0.77 yesterday, at this time patient is maintained on inhaled bronchodilators, IV Decadron, subcu Lovenox,, repeat chest x-ray done today reveals by basilar infiltrates and opacities consistent with COVID-19 infection without any significant change from previous x-ray on 02/27/2021 patient was seen and examined on the medical floor, he is alert and oriented 3 in no apparent distress he is reporting some improvement in his shortness of breath, vital exam reveals a temperature of 99.1 pulse 102 respiration 20 blood pressure 121/84 pulse ox 87% on 15 L high flow cannula, white blood count is 6.2 hemoglobin 13.8 platelet count 262 d-dimer 1.51 sodium 127 potassium 4.0 chloride 94 CO2 25 BUN 13 creatinine 0.81 LDH 1969 C-reactive protein up to 8.9, patient is complaining of cough and shortness of breath otherwise he denies any complaints there is no fever or chills no headache or dizziness no chest pain no nausea or vomiting no abdominal pain no diarrhea no blood in the stools no burning with urination no frequency or urgency and no hematuria On 02/28/2021 patient was seen and examined on the medical floor he is alert and oriented 3 in no apparent distress, he is still maintained on Airvo with FiO2 of 90% his temperature is 98.7 pulse 116 respiration 28 blood pressure 145/81 pulse ox 93% he is complaining of shortness of breath and occasional cough otherwise he denies any complaints there is no fever or chills no headache or dizziness no chest pain no nausea or vomiting no abdominal pain no diarrhea no blood in the stools no burning with urination no frequency or urgency and no hematuria. On 03/01/2021 patient was seen and examined in the ICU he is intubated sedated maintained on mechanical ventilation air this morning patient was having worsening shortness of breath and decreased O2 sat duration despite Airvo, he was transferred to ICU and was intubated. Currently patient is on assist c ontrol tidal volume of 400 rate of 30 FiO2 100% and PEEP of 10 arterial blood gas reveals a pH of 7.24 pCO2 55 PO2 78 sodium is 127 LDH 2034 C-reactive protein 4.5 pulmonary are following closely On 03/02/2021 patient was seen and examined in the ICU he is intubated sedated maintained on mechanical ventilation air this morning patient was having worsening shortness of breath and decreased O2 sat duration despite Airvo, he was transferred to ICU and was intubated. Currently patient is on assist control tidal volume of 400 rate of 30 FiO2 100% and PEEP of 10 arterial blood gas reveals a pH of 7.24 pCO2 55 PO2 78 sodium is 127 LDH 203 C-reactive protein 4.5 pulmonary are following closely. Patient has evidence of ileus, he is maintained on NG tube to suction, surgical consultation was requested. On 03/03/2021 patient was seen and examined in the ICU he is intubated sedated maintained on mechanical ventilation air this morning patient was having worsening shortness of breath and decreased O2 sat duration despite Airvo, he was transferred to ICU and was intubated. Currently patient is on assist control tidal volume of 420 rate of 30 FiO2 85 % and PEEP of 16 arterial blood gas reveals a pH of 7.39 pCO2 55 PO2 66 sodium is 134 LDH 2034 C-reactive protein 4.5 pulmonary are following closely. Patient has evidence of ileus, he is maintained on NG tube to suction, surgical consultation was requested. On 03/04/2021 patient was seen and examined in the ICU he is intubated sedated maintained on mechanical ventilation air this morning patient was having worsening shortness of breath and decreased O2 sat duration despite Airvo, he was transferred to ICU and was intubated. Currently patient is on assist control tidal volume of 420 rate of 30 FiO2 85 % and PEEP of 16 arterial blood gas reveals a pH of 7.41 pCO2 53 PO2 89 sodium is 136 D-Dimer 2.0 pulmonary are following closely.\\ On 03/05/2021 patient was seen and examined in the ICU he is intubated sedated maintained on mechanical ventilation, patient is maintained on assist control tidal volume 42 rate of 30 FiO2 75% and PEEP at 16 arterial blood gas reveals a pH of 7.43 pCO2 48 and PO2 84 white blood count is 11.6 hemoglobin 11.3 platelet count 305 d-dimer 1.85 On 03/06/2021 patient was seen and examined in the ICU he is intubated sedated maintained on mechanical ventilation, patient is maintained on assist control tidal volume 420 rate of 30 FiO2 55% and PEEP at 12 arterial blood gas reveals a pH of 7.43 pCO2 49 and PO2 88 white blood count is 11.6 hemoglobin 11.9 platelet count 305 d-dimer 1.7 patient had a sedation holiday today he did well he was alert and following commands On 03/07/2021 patient was seen and examined in the ICU he is intubated sedated maintained on mechanical ventilation patient is maintained on assist control tidal volume 420 rate 32 FiO2 50% with a PEEP of 12 arterial blood gas reveals a pH of 7.44 pCO2 45 and PaO2 of 71 patient is having sedation holidays and is responding well at that time. On 03/08/2021, patient was seen and examined in the ICU he is intubated sedated maintained on mechanical ventilation, arterial blood gas Reveals a pH of 7.45 pCO2 44 PaO2 78 d-dimer 1.84, patient is maintained on assist control rate 32 tidal folium 420 FiO2 50% and a PEEP of 12 On 03/09/2021 patient was seen and examined in the ICU he is intubated sedated maintained on mechanical ventilation, he is scheduled for tracheostomy and PEG tube placement tomorrow, arterial blood gas reveals a pH of 7.4 to pCO2 48 PaO2 73 white blood count is 9.9 hemoglobin 11.6 platelet count 212 d-dimer is elevated at 3.4 On 03/10/2021, patient was seen and examined in the ICU he is intubated sedated maintained on mechanical ventilation, arterial blood gas Reveals a pH of 7.45 pCO2 44 PaO2 78 d-dimer 1.84, patient is maintained on assist control rate 32 tidal folium 420 FiO2 50% and a PEEP of 12 Patient is scheduled for tracheostomy and PEG tube placement today. On 03/11/2021 patient was seen and examined in the ICU he is intubated, sedated and maintained on mechanical ventilation, he underwent racheostomy and PEG tube placement yesterday, his vent setting patient is maintained on assist control rate of 32 tidal volume 420 FiO2 50% and PEEP of 10 ABG reveals pH 7.46 pCO2 41 PaO2 81 liver enzymes are slightly elevated was AST at 78 ALT at 265 On 03/12/2021 patient was seen and examined in the ICU he is intubated through tracheostom, he is alert responsive trying to answer questions, he is maintained on BiPAP, there is no fever or chills no headache or dizziness no chest pain no shortness of breath no palpitation no cough no nausea or vomiting no abdominal pain no diarrhea no blood in the stools no burning with urination no frequency or urgency and no hematuria, patient is improving gradually. On 03/13/2021 patient was seen and examined in the ICU he is intubated through tracheostomy, he is alert responsive. He is maintained on BiPAP, there is no fever or chills no headache or dizziness no chest pain no shortness of breath no palpitation no cough no nausea or vomiting no abdominal pain no diarrhea no blood in the stools no burning with urination no frequency or urgency and no hematuria, patient is improving gradually. He remains on Decadron 6 mg IV every 12 hours, and SQ Lovenox On 03/14/2021 patient was seen and examined in the ICU he is alert responsive in no apparent distress he is maintained on a trach collar at FiO2 50% vital exam reveals a temperature of 98.9 pulse 80 respiration 42 blood pressure 142/86 pulse ox 92% his white blood count is 15.2 hemoglobin 13.4 platelet count 192 d- dimer is up to 9.29 patient is maintained on IV Decadron and subcu Lovenox pulmonary are following closely On 03/15/2021 patient was seen and examined in the ICU he is alert responsive in no apparent distress he is maintained on a trach collar at FiO2 50% vital exam reveals a temperature of 98.9 pulse 80 respiration 42 blood pressure 142/86 pulse ox 92% his white blood count is 14.2 hemoglobin 14 platelet count 201 d- dimer is 8.7 patient is maintained on IV Decadron and subcu Lovenox pulmonary are following closely, surgery is following regarding ileus, CT scan of the abdomen ordered for today On 03/16/2021 patient was seen and examined in the ICU he is alert and responsive in no apparent distress he is maintained on oxygen through trach collar at 60%, patient has mild abdominal distention computed tomography scan of the abdomen was done and patient is followed by general surgery, vital examination today reveals a pulse of 94 respiration rate 50 blood pressure 117/76 and pulse ox 91% on trach collar. White blood count is 12.7 hemoglobin 14.3 platelet count 193 d-dimer 10.09 arterial blood gas reveals a pH of 7.36 pCO2 38 PaO2 232 glucose 148 AST 39 ALT 116 alkaline phosphatase 79 On 03/17/2021 patient remains in ICU. Patient was placed on mechanical ventilation. FiO2 50%. Concerns for new seizure activity. Neurology services are following recommendation from neurology services is transfer to higher level care due to patient needing MRI and possible neurosurgical consult given his age. Transfer in process to [facility]. Patient remains on small amount of Levophed along with high levels of sedation. Surgical services also following for pneumoperitoneum PEG tube is to dependent drainage. On 03/18/2021 patient remains in the intensive care unit on mechanical ventilation. According to nursing staff patient has been following commands and alert. FiO2 has been weaned to 40%. Repeat head CT was performed yesterday and was recommended per neuro services the patient be transferred to tertiary facility for neurosurgeon consult. According to nursing staff available at multiple hospitals. Patient to be rechecked for COVID today. 2 feeds continue to be on hold patient maintained on TPN. PEG tube to dependent drainage. Objective - Vital Signs Vital signs: Vital Signs Temp 99.2 F 03/18/21 04:00 Pulse 89 03/18/21 08:00 Resp 30 H 03/18/21 08:00 BP 100/58 03/18/21 08:00 Pulse Ox 96 03/18/21 08:00 Intake & Output 03/17/21 03/18/21 03/18/21 18:59 06:59 18:59 Intake Total 1261.876 0761.149 161.128 Output Total 610 2125 230 Balance 487.650 -1108.851 -68.872 Weight 112.6 kg 111.2 kg Intake: IV 675 640 40 Mvi, Adult No.4 with Vit 90 330 30 K 10 ml Trace (Conc-1Ml/ Dose) 1 ml Sodium Acetate 40 meq Potassium Acetate 20 meq Calcium Gluconate 1 gm In Amino Acid 5%- D15w 1,000 ml @ 40 mls/hr IV .Q24H [facility] Rx#: [id number] Piperacillin-Tazobactam 3 175 100 .375 gm In Sodium Chloride 0.9% 100 ml @ 25 mls/hr IVPB Q8HR [facility] Rx# :[id number] Potassium replacement 200 Sodium Chloride 0.9% 1, 110 110 10 000 ml @ 10 mls/hr IV . Q24H [facility] Rx#:[id number] levETIRAcetam IV 1,000 mg 100 100 In Saline 1 100ml.bag @ 400 mls/hr IVPB Q12HR [facility]I Rx#:[id number] Intake, IV Titration 422.650 376.149 121.128 Amount Norepinephrine 32 mg In 49.584 Sodium Chloride 0.9% 218 ml @ 0.05 MCG/KG/MIN 2. 578 mls/hr IV .Q24H [facility] Rx#:[id number] propofoL 1,000 mg In 373.066 376.149 121.128 Empty Bag 1 bag @ Titrate IV .Q0M [facility] Rx#: [id number] Output: Gastric Drainage 75 160 Urine 535 2125 70 Other: Voiding Method Indwelling Catheter Indwelling Catheter ABP, PAP, CO, CI - Last Documented Arterial Blood Pressure 102/72 - Exam In general patient is intubated through tracheostomy, he is alert off sedation HEENT head normocephalic and atraumatic Neck is supple no JVD no goiter no lymphadenopathy Chest exam reveals a few scattered crackles no wheezing Cardiac exam reveals regular heart sounds no gallops no murmurs Abdomen is soft nontender no organomegaly with normal bowel sounds, slightly distended Extremity exam reveals no edema no cyanosis or clubbing Neurological examination reveals no gross focal deficit - Labs CBC & Chem 7: 03/18/21 03:27 03/18/21 03:27 Labs: Abnormal Lab Results - Last 24 Hours (Table) 03/17/21 03/17/21 03/18/21 Range/Units 11:43 17:32 00:01 RBC (4.30-5.90) m/uL Hgb (13.0-17.5) gm/dL Hct (39.0-53.0) % Neutrophils # (1.3-7.7) k/uL ABG pH (7.35-7.45) ABG pO2 (83-108) mmHg ABG HCO3 (21-25) mmol/L ABG Total CO2 (19-24) mmol/L ABG O2 Saturation (94-97) % Chloride (98-107) mmol/L Creatinine (0.66-1.25) mg/dL Glucose (74-99) mg/dL POC Glucose (mg/dL) 110 H 110 H 113 H (75-99) mg/dL ALT (4-49) U/L Total Protein (6.3-8.2) g/dL Albumin (3.5-5.0) g/dL Coronavirus (PCR) (Not Detectd) 03/18/21 03/18/21 03/18/21 Range/Units 03:27 03:27 06:00 RBC 4.02 L (4.30-5.90) m/uL Hgb 12.5 L (13.0-17.5) gm/dL Hct 36.5 L (39.0-53.0) % Neutrophils # 8.3 H (1.3-7.7) k/uL ABG pH 7.46 H (7.35-7.45) ABG pO2 123 H (83-108) mmHg ABG HCO3 27 H (21-25) mmol/L ABG Total CO2 28 H (19-24) mmol/L ABG O2 Saturation 98.9 H (94-97) % Chloride 109 H (98-107) mmol/L Creatinine 0.53 L (0.66-1.25) mg/dL Glucose 109 H (74-99) mg/dL POC Glucose (mg/dL) (75-99) mg/dL ALT 77 H (4-49) U/L Total Protein 5.6 L (6.3-8.2) g/dL Albumin 3.1 L (3.5-5.0) g/dL Coronavirus (PCR) (Not Detectd) 03/18/21 03/18/21 Range/Units 06:23 08:55 RBC (4.30-5.90) m/uL Hgb (13.0-17.5) gm/dL Hct (39.0-53.0) % Neutrophils # (1.3-7.7) k/uL ABG pH (7.35-7.45) ABG pO2 (83-108) mmHg ABG HCO3 (21-25) mmol/L ABG Total CO2 (19-24) mmol/L ABG O2 Saturation (94-97) % Chloride (98-107) mmol/L Creatinine (0.66-1.25) mg/dL Glucose (74-99) mg/dL POC Glucose (mg/dL) 115 H (75-99) mg/dL ALT (4-49) U/L Total Protein (6.3-8.2) g/dL Albumin (3.5-5.0) g/dL Coronavirus (PCR) Detected A (Not Detectd) Microbiology - Last 24 Hours (Table) 03/16/21 00:12 Gram Stain - Preliminary Sputum Sputum Culture - Preliminary Presumptive Staph aureus Assessment and Plan Plan: 1. Acute COVID-19 pneumonia patient started on IV Decadron and subcu Lovenox pulmonary consultation was requested, patient developed acute hypoxic respiratory failure requiring intubation and mechanical ventilation 2. Underlying history of asthma 3. Underlying history of morbid obesity 4. Hyponatremia 5. Elevated liver enzymes, will monitor closely 6. Pneumoperitoneum post PEG tube insertion. Surgical services are following PEG tube to dependent drainage 7. Acute and new onset seizure activity. Patient was started on Keppra and treated with Ativan. Neurology services are following recommend transfer to higher level of care for possible MRI and neurosurgical consult 8. Methicillin sensitive staph aureus and maxilla catarrhalis tracheal bronchitis bronchopneumonia Patient remains in the intensive care unit Critical care, surgical services and neurology services following Attempting transfer to tertiary facility for neurosurgical consult
[2021-03-18 11:26] LABS: Glucose,Whole Blood 141 mg/dL (75-99)
[2021-03-18] MEDS: bisacodyL 10 MG SUPP RECTAL SCH (12:46)
[2021-03-18] MEDS: NOREPINEPHRINE 32 MG in SODIUM CHLORIDE 0.9% 218 ML IV SCH (12:47)
[2021-03-18] MEDS: CLEVIDIPINE BUTYRATE 25 MG in EMPTY BAG 1 BAG IV SCH (12:47)
[2021-03-18 18:16] LABS: Glucose,Whole Blood 98 mg/dL (75-99)
[2021-03-18] MEDS ORDERED: MVI, ADULT NO.4 WITH VIT K 10 ML, TRACE (CONC-1ML/DOSE) 1 ML, SODIUM ACETATE 40 MEQ, PO... IV SCH ×6 (20:00)
[2021-03-18] MEDS: SODIUM CHLORIDE 0.9% 1,000 ML IV SCH (22:13)
[2021-03-18 23:46] LABS: Glucose,Whole Blood 102 mg/dL (75-99)
[2021-03-19] MEDS: PIPERACILLIN-TAZOBACTAM 3.375 GM in SODIUM CHLORIDE 0.9% 100 ML IVPB SCH ×3 (00:44→16:37)
[2021-03-19] MEDS: METOCLOPRAMIDE 5 MG/ML 2 ML VIAL IVP SCH ×4 (00:45→16:38)
[2021-03-19] MEDS ORDERED: ACETAMINOPHEN IV (For NPO) 1,000 MG in EMPTY BAG 1 BAG IVPB PRN (01:27)
[2021-03-19] MEDS: HYDROmorphone 1 MG/ML 1 ML SYRINGE IVP PRN (01:53)
[2021-03-19 04:38] LABS: ALT 61 U/L (4-49); AST 26 U/L (17-59); African American GFR (CKD) >90 (>60 ml/min/1.73 sqM); Albumin 3.2 g/dL (3.5-5.0); Alkaline Phosphatase 54 U/L (38-126); Anion Gap 8 mmol/L; Blood Urea Nitrogen 14 mg/dL (9-20); C Reactive Protein 7.8 mg/dL (<1.0); Calcium 8.5 mg/dL (8.4-10.2); Carbon Dioxide 24 mmol/L (22-30); Chloride 103 mmol/L (98-107); Glucose 104 mg/dL (74-99); LDH 752 U/L (313-618); Magnesium 1.8 mg/dL (1.6-2.3); Non-African American GFR(CKD) >90 (>60 ml/min/1.73 sqM); Phosphorus 4.2 mg/dL (2.5-4.5); Potassium 3.8 mmol/L (3.5-5.1); Sodium 135 mmol/L (137-145); Total Bilirubin 1.3 mg/dL (0.2-1.3); Total Protein 5.8 g/dL (6.3-8.2)
[2021-03-19 05:53] LABS: Glucose,Whole Blood 94 mg/dL (75-99)
[2021-03-19 06:11] LABS: Basophils % (A) 0 %; Eosinophils # (A) 0.1 k/uL (0-0.7); Eosinophils % (A) 1 %; Lymphocytes % (A) 11 %; MCH 30.9 pg (25.0-35.0); MCHC 34.2 g/dL (31.0-37.0); MCV 90.2 fL (80.0-100.0); Mean Platelet Volume 9.1; Monocytes # (A) 0.6 k/uL (0-1.0); Monocytes % (A) 7 %; Neutrophils % (A) 79 %; Platelet Count 150 k/uL (150-450); RBC 3.88 m/uL (4.30-5.90); WBC 8.8 k/uL (3.8-10.6)
[2021-03-19] MEDS: MAGNESIUM SULFATE-D5W PMX 1 GM in DEXTROSE/WATER 1 100ML.BAG IVPB SCH ×2 (07:08→07:58)
[2021-03-19] MEDS: POTASSIUM CHLORIDE 10 MEQ in WATER FOR INJECTION 1 100ML.BAG IVPB SCH ×2 (07:08→07:59)
[2021-03-19] MEDS: ALBUTEROL HFA INHALER INHALATION SCH ×4 (07:52→20:34)
--- NOTE | 2021-03-19 07:56 | XR ---
EXAMINATION TYPE: XR chest 1V portable DATE OF EXAM: 03/19/2021 COMPARISON: 03/18/2021 INDICATION: Congestion with fever TECHNIQUE: Single frontal view of the chest is obtained. FINDINGS: The heart size is upper limits of normal. The pulmonary vasculature is normal. Bilateral infiltrates are present. This appear to be worsening. Tracheostomy tube is in the midline. PICC line enters on the left the right atrium. Previous right pneumoperitoneum is more evident. Correlate with the patient's history. IMPRESSION: 1. Worsening bilateral lung infiltrates. 2. Lines catheters discussed above. 3. Better visualization of the patient's right pneumoperitoneum
[2021-03-19] MEDS: levETIRAcetam IV 1,000 MG in SALINE 1 100ML.BAG IVPB SCH ×2 (07:58→21:17)
[2021-03-19] MEDS: DEXAMETHASONE SOD PHOSPHATE 4 MG/ML 1 ML VIAL IV SCH (07:59)
[2021-03-19] MEDS: PANTOPRAZOLE 40 MG/10 ML VIAL IV SCH (07:59)
[2021-03-19] MEDS: ENOXAPARIN 40 MG/0.4 ML SYRINGE SQ SCH (07:59)
[2021-03-19] MEDS: bisacodyL 10 MG SUPP RECTAL SCH (08:00)
--- NOTE | 2021-03-19 09:34 | P.PN ---
Subjective Progress Note Date: 03/19/21 On , I'm seeing this patient for a follow-up. This is a 35-year-old male patient was in the intensive care unit for respiratory failure due to COVID-19 related pneumonia. The patient intubated and mechanically ventilated on 03/01/2021 and subsequently the patient failed to wean and failed to recover and the patient required tracheostomy tube insertion and a PEG tube insertion for long-term ventilator care and enteral feeding for nutritional support and this was done on 03/10/2021. The patient is currently off sedation and his been off sedation for the past 24 hours. This morning, the patient patient is on a trach shield at 50% FiO2. He is calm and comfortable. He was taken off th e mechanical ventilator 3 am and his been off the mechanical ventilator since. During the course of the treatment, the patient was also cultured to have MSSA and Moraxella catarrhalis in his sputum. He was treated with antibiotics and currently is off antibiotics. Patient is hemodynamically stable on no pressors. He requires Cleviprex on and off for blood pressure control. He is receiving enteral feeding for dentures support with vital high protein at the rate of 33 mL an hour. Chest x-ray still showing diffuse but the pulmonary infiltrates. Inflammatory markers including LDH from is 686 with a CRP of 0.6. His d-dimer level was is still elevated 7.38 the patient was receiving Lovenox 60 mg subcu every 12 hours. Patient otherwise is tolerating enteral feeding for dentures support. The patient has been afebrile and hemodynamically stable. He remains on Decadron 6 mg IV every 12 hours. He is also on Lovenox for deep prophylaxis. Afebrile.Chest x-ray still showing diffuse bilateral interstitial infiltrates most on the right lower lobe and the patient has a PICC line in left upper extremity. Tracheostomy tube is in a good location. 03/14/2021, the patient is being seen for a follow-up. The patient spent the entire day yesterday trach collar at 50%. Overnight, the patient started having some increased oral and orotracheal secretions that were bloody. He was also desaturating. He was placed on 100% trach collar and following that he was placed back on a mechanical ventilator on his previous ventilator settings and he stayed on the assist control mode of the night. This morning, he was switched back to a trach collar at 50%. His current pulse ox is 90%. His chest x-ray showing that the tip of the tracheostomy tube was very high in the trachea and that she possibly may need to be repositioned and pushed in. He is awake and alert. He is off the mechanical ventilator for now. Chest x-ray still showing bilateral pulmonary infiltrates, essentially unchanged compared to yesterday. In terms of his treatment, the patient remains on Decadron 6 mg IV every 24 hours. Inflammatory markers from today of 9.29, LDH level of 1059 and a CRP level of 0.7. His white cell count is at 15.2 and hemoglobin of 13.4. Rest of the electrodes are all within normal limits. He remains on Lovenox for DVT prophylaxis. He is also receiving enteral feeding was nutritional support. The patient is receiving vital high protein at the rate of 33 mL an hour. Note that overnight, he had also to be placed on a low-dose fentanyl which unwilling to discontinue today. He is currently running at 3 mcg/kg per minute of fentanyl drip. He has a PEG tube in place. No abdominal distention. Regular bowel movements. On 03/15/2021, the patient is on the 50% trach collar. He is a bit anxious and tachypneic specially when he is having a communication with other nursing staff and physicians. When left alone, the patient aspirate was done in the mid 30s. He has a Shiley tracheostomy tube in place. He did have some limited amount of bleeding around the Shiley tracheostomy tube and there is no active bleeding at this point in time. No significant cough or sputum production. He is resting comfortably in bed. Physically is getting stronger. A repeat chest x-ray was done today and it showed some small bowel distention and for that reason an abdominal x-ray was done that raised the possibility of small bilateral ileus and at the same time there was a 12 mm opaque density over the left upper quadrant of the abdomen that was not seen on earlier evaluation. Based on his gastric and small bowel distention and the presence of a radiopaque density, general surgery was involved again with the patient be asked to be seen again by general surgery regarding his abnormalities. Meanwhile, the patient is passing flatus, he is still receiving enteral feeding for nutritional support in the form of vital high protein at the rate of 53 mL an hour. On examination, he denies having any significant abdominal distention or tenderness. Bowel sounds are present. No tympany on examination. His chest x-ray still showing bilateral pulmonary infiltrates consistent with COVID-19 related pneumonia. D- dimer is down to 8.7. His rest of the inflammatory markers shows a LDH level of 1331 and a CRP of 2.2. He is weaned down on his Decadron to 4 mg IV every 24 hours. He is also on Lovenox 60 mg subcu every 12 hours. On today's evaluation of 03/16/2021, I'm seeing this patient for a follow-up. The patient remains on trach collar at 60%. He seems to be quite comfortable. He did not go on a mechanical ventilator overnight and he stayed on trach collar throughout the day and overnight. Abdominal films and the chest from yesterday showed air under the diaphragm. There was free air and there was also some gastric distention. I consulted with general surgery and the patient was seen by Dr. Rk encarnacion. A CAT scan of the abdomen and pelvis was done and based on the findings, there was confirmation of pneumoperitoneum that was moderate to severe amount and the patient had satisfactory the was a shooting of the PEG tube. It was noted also that the sutures and the clips hasn't migrated and his general surgeon is aware of that nevertheless, despite these findings, the patient does have a soft abdomen. The patient was made nothing by mouth yesterday. His activity was drained to gravity and his produce approximately 400 mL of gastric/bilious material. The patient's white cell count is at 12.7. Hemoglobin is at 14.3. No evidence of any GI bleeding. Platelet count is at 193. His electrolytes all within normal limits. No significant acidosis. Renal function stable with a creatinine of 0.7. LFTs are also adequate for now some elevation in the ALT was noted. Meanwhile, d-dimer is at 10.09. LDH level was not checked from today. His chest x-ray is unchanged and the patient continues to have pneumoperitoneum bilaterally. There is air under the diaphragms bilaterally. The patient remains on Decadron 4 mg IV every 24 hours and the patient is also on Lovenox 60 mg subcu every 12 hours which was placed on hold by general surgery. He is currently on IV Zosyn and this was started yesterday by general surgery as an empiric antibiotic coverage. He is on no sedation. Is awake and alert. His communicating. At times he gets worked up and short of breath and there may be a component of anxiety. On 03/17/2021, the patient is being seen in follow-up in the intensive care unit. Unfortunately, several events occurred since yesterday. After my rounds, at around noontime, the patient went into a sudden seizure activity. This was witnessed right the nursing staff and the respiratory therapist. The patient had tonic-clonic jerking activity and his eyes were rolling and the patient lost consciousness. This lasted for around 1-2 minutes. During that time, the patient was given Ativan IV and following that he was started on Keppra. Subsequently, the patient had another bout of seizure activity and that point he was not regaining consciousness back and probably was due to post ictal state. At that point, the patient was started on propofol which is still running at a dose of 70 mcg/kg per minute. EEG was done yesterday while the patient was on propofol and Keppra and the EEG showed some abnormalities with this organized background intermixed slow and high frequency activity. There was obvious signs of generalized cerebral dysfunction. No definite seizure activity was seen on that study. The CAT scan of the brain was also done that showed no acute abnormalities. Meanwhile, the patient's was also seen by neurology. Overnight, he became slightly hypotensive. He required low-dose norepinephrine infusion wh ich was ultimately weaned off and discontinued and currently the patient is on no pressors. In other issues ongoing with pneumoperitoneum. The patient was seen by general surgery. Abdomen remains soft and with resulting there is any evidence of any acute abdomen that requires immediate surgical intervention. X- ray still showing air under the diaphragm bilaterally in the abdomen and x-rays also showing pneumoperitoneum. On yesterday's evaluation and based on the ongoing neurologic changes, blood gas was rechecked and the patient did not show any significant acidosis. His pH was 7.35 with a pCO2 of 38 and pO2 of 31 and this was done while the patient on mechanical ventilator within assist-control of 32, FiO2 85% with a tidal volume of 420 in the rate of 32 and PEEP of 5. FiO2 was weaned down to 50% and the patient's morning blood gases showed a pH of 7.37 with a pCO2 of 36 and pO2 of 72. Chest x-ray still showing diffuse but the pulmonary infiltrates consistent with COVID-19 related pneumonia. His tracheostomy tube is in a good location. In terms of his inflammatory markers, and d-dimer today is at 14.7. His LDH level is at 972 and his CRP level is at 3.6. He is afebrile this morning. He was running fevers yesterday and his temperature was as high as 100.9. He is covered with broad-spectrum antibiotics and the patient is currently still on a combination of Decadron 4 mg IV every 24 hours and the patient is also on IV Zosyn. I have the patient off Lovenox for surgical recommendation should he require any surgical intervention. He has aggressive compression devices to lower extremities bilaterally. At least going back to Lovenox at a dose of 40 mg subcu once a day, prophylactic dose. 8 2020, the patient is being seen for a follow-up. The patient is currently on a mechanical ventilator. The patient is posterior gastric tube insertion. The patient had to be supported again with the mechanical ventilator as the patient required sedation in follow-up propofol. This morning, his back on assist control mode with a tidal volume of 420, rate of 26, FiO2 of 50% and a PEEP of 5. Chest x-ray showing limited by the pulmonary infiltrates in lung bases bi laterally. The pneumoperitoneum can be appreciated on the right. The last agree on the left. No evidence of any pneumothorax. The patient is a PICC line in the left upper extremity. Showed a pH of 7.46 with a pCO2 of 37 and pO2 of 123. As such, the patient is stable for the pulmonary standpoint. Noted the patient was able to tolerate trach collar for several days prior to going back on a mechanical ventilator and this was done as the patient had neurologic complications manifesting itself as episodic seizures. Not had any seizures over the past 24 hours. The most recent EEG showed no evidence of any epileptic focus. Nevertheless, the CAT scan of the brain showed some degree of hydr ocephalus without any change compared to the old exam. I had a discussion with neurology. In fact the neurology recommended transferring this patient to a tertiary care center should be evaluated by neurology and neurosurgery. We tried multiple hospitals regarding this issue and unfortunately the chest that was not successful. I contacted [facility], [facility] and [facility] and all of these hospitals declined the transferred due to lack of bed availability's. Fortunately, the patient has done neurologically well. Currently is on propofol running at 30 mcg/kg per minute. Despite this, he is awake and arousable and is following commands and answering questions. He seems to be quite appropriate. We'll also extremities without any limitation. He is still requiring low-dose norepinephrine which is running at 0.04 mcg/kg per minute. No fevers. No abdominal distention. Abdomen is soft. The patient's PEG tube was essentially drained dependent drainage and output is in the form of initial arterial and the amount is minimal. Occasional general surgery. The surgeon opted to keep the patient nothing by mouth for now and not utilizing the PEG tube and the patient was started on PPN for nutritional support The patient remains on by mouth. He remains on Decadron 4 mg IV every 24 hours. He is back on Lovenox 40 mg subcu every 24 hours. A separate note, the patient was cultured for MRSA in his sputum. He is afebrile. He is oxygenating well. No significant orotracheal secretions. This could be potentially a colonizer. Appropriate phone and will be obtained and the patient is not at any antibiotic coverage regarding MRSA. He is on IV Zosyn as an empiric antibiotic coverage for his underlying pneumoperitoneum. 02/17/2021, patient is awake, patient is calm and comfortable, communicating, although 4 extremities, although we will let he feels better and is able to raise his arms against gravity and move his feet and raised in size. He is very much appropriate is oriented and alert 3. He remains on trach collar and is off the mechanical ventilator. Currently on 80% trach collar with a pulse ox of 88-89%. Repeat chest incision from today showing right pulmonary infiltrates specially in the lower lobes with some slight interval worsening of the right lower lobe pulmonary infiltrate and there is also air under the diaphragm consistent with pneumoperitoneum. The patient has MSSA in his rhythm. He is currently on Zosyn which is a adequate coverage for his MSSA in his sputum and it is all and is also adequate coverage for his underlying pneumoperitoneum and gastric complications postoperative discomfort. Note that his abdomen remains soft and there is no indication for underlying sepsis or abdominal catastrophe post PEG tube insertion despite the presence of pneumoperitoneum. He has been kept nothing by mouth. Is receiving PPN for nutritional support. PEG tube in place to drainage which is dependent drainage for now. Meanwhile, the patient is on Keppra. No seizure activity has been noted. He remains on Decadron. He is on a dose of 4 mg by mouth daily. D-dimer is on the rise is up to 15 and the patient's Lovenox dose will be adjusted accordingly. No fever. He is still positive for COVID-19 based on that evaluation. His LDH level is 752 which is low and his pro-calcitonin level is at 0.14. Objective - Vital Signs Vital signs: Vital Signs Temp 98.2 F 03/19/21 04:00 Pulse 63 03/19/21 07:00 Resp 29 H 03/19/21 07:00 BP 100/60 03/19/21 07:00 Pulse Ox 95 03/19/21 07:00 Intake & Output 03/18/21 03/19/21 03/19/21 18:59 06:59 18:59 Intake Total 1225.012 879.2 53.8 Output Total 1530 1160 50 Balance -304.988 -280.8 3.8 Weight 108.9 kg Intake: IV 1045 879.2 53.8 ACETAMINOPHEN IV (For NPO 100 ) 1,000 mg In Empty Bag 1 bag @ 400 mls/hr IVPB Q6HR PRN Rx#:[id number] Magnesium Sulfate-D5w Pmx 200 1 gm In Dextrose/Water 1 100ml.bag @ 100 mls/hr IVPB Q1H TERI Rx#: [id number] Mvi, Adult No.4 with Vit 360 484.2 43.8 K 10 ml Trace (Conc-1Ml/ Dose) 1 ml Sodium Acetate 40 meq Potassium Acetate 20 meq Calcium Gluconate 1 gm In Amino Acid 5%- D15w 1,000 ml @ 40 mls/hr IV .Q24H TERI Rx#: [id number] Piperacillin-Tazobactam 3 175 125 .375 gm In Sodium Chloride 0.9% 100 ml @ 25 mls/hr IVPB Q8HR TERI Rx# :[id number] Potassium replacement 200 Sodium Chloride 0.9% 1, 10 70 10 000 ml @ 10 mls/hr IV . Q24H TERI Rx#:[id number] levETIRAcetam IV 1,000 mg 100 100 In Saline 1 100ml.bag @ 400 mls/hr IVPB Q12HR TERI Rx#:[id number] Intake, IV Titration 180.012 Amount Norepinephrine 32 mg In 50.544 Sodium Chloride 0.9% 218 ml @ 0.05 MCG/KG/MIN 2. 578 mls/hr IV .Q24H TERI Rx#:[id number] propofoL 1,000 mg In 129.468 Empty Bag 1 bag @ Titrate IV .Q0M TERI Rx#: [id number] Output: Gastric Drainage 160 370 Urine 1370 790 50 Other: Voiding Method Indwelling Catheter Indwelling Catheter ABP, PAP, CO, CI - Last Documented Arterial Blood Pressure 102/72 - Exam GENERAL EXAM: Sedated, 35-year-old gentleman, on mechanical ventilator, comfortable in no apparent distress. Tracheostomy tube is in place, and the patient has a Shiley #[address] The patient has an 80% trach collar HEAD: Normocephalic. EYES: Normal reaction of pupils, equal size. NOSE: Clear with pink turbinates. THROAT: No erythema or exudates. NECK: Tracheostomy tube secured in place. No masses, no JVD. CHEST: No chest wall deformity. LUNGS: Equal air entry with bilateral coarse crackles. CVS: S1 and S2 normal with no audible murmur, regular rhythm. ABDOMEN: PEG tube exit site clean and dry. No hepatosplenomegaly, normal bowel sounds, no guarding or rigidity. Note that the abdomen is nondistended. No tympany. No tenderness. Bowel sounds are present. Some dried of bloody secretions around the PEG tube orifice SPINE: No scoliosis or deformity SKIN: No rashes CENTRAL NERVOUS SYSTEM: Alert and oriented 3 EXTREMITIES: There is no peripheral edema. No clubbing, no cyanosis. Peripheral pulses are intact. - Labs CBC & Chem 7: 03/19/21 03:44 03/19/21 03:44 Labs: Abnormal Lab Results - Last 24 Hours (Table) 03/18/21 03/18/21 03/18/21 Range/Units 03:27 08:55 11:25 RBC (4.30-5.90) m/uL Hgb (13.0-17.5) gm/dL Hct (39.0-53.0) % D-Dimer (<0.60) mg/L FEU Sodium (137-145) mmol/L Creatinine (0.66-1.25) mg/dL Glucose (74-99) mg/dL POC Glucose (mg/dL) 141 H (75-99) mg/dL ALT (4-49) U/L Lactate Dehydrogenase (313-618) U/L C-Reactive Protein (<1.0) mg/dL Total Protein (6.3-8.2) g/dL Albumin (3.5-5.0) g/dL Procalcitonin 0.14 H (0.02-0.09) ng/mL Coronavirus (PCR) Detected A (Not Detectd) 03/18/21 03/19/21 03/19/21 Range/Units 23:44 03:44 03:44 RBC (4.30-5.90) m/uL Hgb (13.0-17.5) gm/dL Hct (39.0-53.0) % D-Dimer 15.49 H (<0.60) mg/L FEU Sodium 135 L (137-145) mmol/L Creatinine 0.55 L (0.66-1.25) mg/dL Glucose 104 H (74-99) mg/dL POC Glucose (mg/dL) 102 H (75-99) mg/dL ALT 61 H (4-49) U/L Lactate Dehydrogenase 752 H (313-618) U/L C-Reactive Protein 7.8 H (<1.0) mg/dL Total Protein 5.8 L (6.3-8.2) g/dL Albumin 3.2 L (3.5-5.0) g/dL Procalcitonin (0.02-0.09) ng/mL Coronavirus (PCR) (Not Detectd) 03/19/21 Range/Units 03:44 RBC 3.88 L (4.30-5.90) m/uL Hgb 12.0 L (13.0-17.5) gm/dL Hct 35.0 L (39.0-53.0) % D-Dimer (<0.60) mg/L FEU Sodium (137-145) mmol/L Creatinine (0.66-1.25) mg/dL Glucose (74-99) mg/dL POC Glucose (mg/dL) (75-99) mg/dL ALT (4-49) U/L Lactate Dehydrogenase (313-618) U/L C-Reactive Protein (<1.0) mg/dL Total Protein (6.3-8.2) g/dL Albumin (3.5-5.0) g/dL Procalcitonin (0.02-0.09) ng/mL Coronavirus (PCR) (Not Detectd) Microbiology - Last 24 Hours (Table) 03/16/21 00:12 Gram Stain - Final Sputum Sputum Culture - Final Staphylococcus aureus Assessment and Plan Plan: 1 Acute hypoxemic respiratory failure, secondary to COVID 19 pneumo janna/pneumonitis, requiring intubation and mechanical ventilation on 03/01/2021. Failure to progress on mechanical ventilation, tracheostomy tube placement and PEG tube placed on 03/10/2021. She was off the mechanical ventilator for several days. She is currently back to trach collar at 80% FiO2 and his chest x-ray still showing bilateral pulmonary infiltrates slightly worse on the right. Sputum was positive for MSSA and the patient is currently on Zosyn. 2 acute and new onset seizure activity, treated , currently on Keppra, and the patient has been free of seizures for the past 48 hours 3 pneumoperitoneum, post PEG tube insertion. Of any acute abdomen. Lactic acid levels have been low. The patient is an empiric antibiotic coverage with IV Zosyn. Gen. surgery opted to give the patient nothing by mouth and as such TPN was given for nutritional support. 4 history of Methicillin sensitive staph aureus and Moraxella catarrhalis tracheobronchitis/bronchopneumonia, 5 Morbid obesity. 6 Possible sleep apnea syndrome. 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 Overall motor function has been improving 10 fever Plan: Intact and the patient is awake and alert 3 continue Keppra regarding his new onset seizures Keep the patient on trach collar, 80% FiO2 Drop the Decadron dose down to 2 mg every 24 hours Keep the patient nothing by mouth Hold tube feeds , till the patient is given a final clearance from general s urgery TPN Monitor the output from the PEG tube which is attached to dependent drainage Continue IV Zosyn Procal level and elevated and this is to be monitored Lovenox dose of 50 mg subcu every 12 hours Apply compression devices lower extremities Monitor inflammatory markers and monitor the d-dimer level which is obviously on the rise Repeat chest x-ray in the morning Continue to follow up this case along with general surgery and neurology We'll continue to follow. The case was discussed with the general surgeon/neurology at length. Critically care evaluation, more than 30 minutes Time with Patient: Greater than 30
[2021-03-19] MEDS: NOREPINEPHRINE 32 MG in SODIUM CHLORIDE 0.9% 218 ML IV SCH (11:11)
[2021-03-19] MEDS: CLEVIDIPINE BUTYRATE 25 MG in EMPTY BAG 1 BAG IV SCH (11:12)
--- NOTE | 2021-03-19 11:22 | P.PN ---
Progress Note - Text Progress Note Date: 03/19/21 The patient is having bowel movements and passing flatus. His abdomen is soft. There is less distention. Patient will resume tube feeds today.
[2021-03-19 11:23] LABS: Glucose,Whole Blood 123 mg/dL (75-99)
--- NOTE | 2021-03-19 13:00 | P.PN ---
Subjective Progress Note Date: 03/19/21 Osmar Drummond, is a 35-year-old male patient of Dr. Hdz, who presented to [facility] emergency room with a chief complaint of worsening shortness of breath and chest tightness. Patient was also having persistent cough his symptoms started 12 days ago however he had severe worsening of his symptoms in the last 3 days. He stated that last Saturday he was tested for COVID-19, results came back positive on Saturday. He was evaluated in the emergency room vital examination on presentation revealed a temperature of 103 pulse 92 respiration 18 blood pressure 124/77 pulse ox 92% on room air. White blood count was 4.2 hemoglobin 15.4 platelet count 161 sodium 125 potassium 3.9 chloride 88 calcium 7.8 BUN 8 creatinine 0.94 AST 98 ALT 57 LDH 1623 C-reactive protein 41.1 EKG done in the emergency room revealed normal sinus rhythm normal EKG, chest x-ray done in the emergency room revealed patchy bilateral infiltrates compatible with multifocal pneumonia no pneumothorax. Patient was admitted to medical floor pulmonary consultation was requested. On 02/25/2021 patient was seen and examined on the medical floor he is alert and oriented 3 in no distress, he is still complaining of cough and shortness of breath otherwise he denies any complaints there is no fever or chills no hea dache or dizziness no chest pain no nausea or vomiting no abdominal pain no diarrhea no blood in the stools no burning was urination no frequency or urgency and no hematuria. On 02/26/2021 patient was seen and examined on the medical floor he is alert and oriented 3 in no distress he seems to be worse today he is having more tachycardia and tachypnea, his temperature is 99.8 pulse ox is down to 82% on 15 L high flow cannula inflammatory markers are up his LDH is 1735 up from 1440 yesterday C-reactive protein is up to 7.2 up from 6 yesterday d-dimer is up to 1.21 up from 0.77 yesterday, at this time patient is maintained on inhaled bronchodilators, IV Decadron, subcu Lovenox,, repeat chest x-ray done today reveals by basilar infiltrates and opacities consistent with COVID-19 infection without any significant change from previous x-ray on 02/27/2021 patient was seen and examined on the medical floor, he is alert and oriented 3 in no apparent distress he is reporting some improvement in his shortness of breath, vital exam reveals a temperature of 99.1 pulse 102 respiration 20 blood pressure 121/84 pulse ox 87% on 15 L high flow cannula, white blood count is 6.2 hemoglobin 13.8 platelet count 262 d-dimer 1.51 sodium 127 potassium 4.0 chloride 94 CO2 25 BUN 13 creatinine 0.81 LDH 1969 C-reactive protein up to 8.9, patient is complaining of cough and shortness of breath otherwise he denies any complaints there is no fever or chills no headache or dizziness no chest pain no nausea or vomiting no abdominal pain no diarrhea no blood in the stools no burning with urination no frequency or urgency and no hematuria On 02/28/2021 patient was seen and examined on the medical floor he is alert and oriented 3 in no apparent distress, he is still maintained on Airvo with FiO2 of 90% his temperature is 98.7 pulse 116 respiration 28 blood pressure 145/81 pulse ox 93% he is complaining of shortness of breath and occasional cough otherwise he denies any complaints there is no fever or chills no headache or dizziness no chest pain no nausea or vomiting no abdominal pain no diarrhea no blood in the stools no burning with urination no frequency or urgency and no hematuria. On 03/01/2021 patient was seen and examined in the ICU he is intubated sedated maintained on mechanical ventilation air this morning patient was having worsening shortness of breath and decreased O2 sat duration despite Airvo, he was transferred to ICU and was intubated. Currently patient is on assist c ontrol tidal volume of 400 rate of 30 FiO2 100% and PEEP of 10 arterial blood gas reveals a pH of 7.24 pCO2 55 PO2 78 sodium is 127 LDH 2034 C-reactive protein 4.5 pulmonary are following closely On 03/02/2021 patient was seen and examined in the ICU he is intubated sedated maintained on mechanical ventilation air this morning patient was having worsening shortness of breath and decreased O2 sat duration despite Airvo, he was transferred to ICU and was intubated. Currently patient is on assist control tidal volume of 400 rate of 30 FiO2 100% and PEEP of 10 arterial blood gas reveals a pH of 7.24 pCO2 55 PO2 78 sodium is 127 LDH 203 C-reactive protein 4.5 pulmonary are following closely. Patient has evidence of ileus, he is maintained on NG tube to suction, surgical consultation was requested. On 03/03/2021 patient was seen and examined in the ICU he is intubated sedated maintained on mechanical ventilation air this morning patient was having worsening shortness of breath and decreased O2 sat duration despite Airvo, he was transferred to ICU and was intubated. Currently patient is on assist control tidal volume of 420 rate of 30 FiO2 85 % and PEEP of 16 arterial blood gas reveals a pH of 7.39 pCO2 55 PO2 66 sodium is 134 LDH 2034 C-reactive protein 4.5 pulmonary are following closely. Patient has evidence of ileus, he is maintained on NG tube to suction, surgical consultation was requested. On 03/04/2021 patient was seen and examined in the ICU he is intubated sedated maintained on mechanical ventilation air this morning patient was having worsening shortness of breath and decreased O2 sat duration despite Airvo, he was transferred to ICU and was intubated. Currently patient is on assist control tidal volume of 420 rate of 30 FiO2 85 % and PEEP of 16 arterial blood gas reveals a pH of 7.41 pCO2 53 PO2 89 sodium is 136 D-Dimer 2.0 pulmonary are following closely.\\ On 03/05/2021 patient was seen and examined in the ICU he is intubated sedated maintained on mechanical ventilation, patient is maintained on assist control tidal volume 42 rate of 30 FiO2 75% and PEEP at 16 arterial blood gas reveals a pH of 7.43 pCO2 48 and PO2 84 white blood count is 11.6 hemoglobin 11.3 platelet count 305 d-dimer 1.85 On 03/06/2021 patient was seen and examined in the ICU he is intubated sedated maintained on mechanical ventilation, patient is maintained on assist control tidal volume 420 rate of 30 FiO2 55% and PEEP at 12 arterial blood gas reveals a pH of 7.43 pCO2 49 and PO2 88 white blood count is 11.6 hemoglobin 11.9 platelet count 305 d-dimer 1.7 patient had a sedation holiday today he did well he was alert and following commands On 03/07/2021 patient was seen and examined in the ICU he is intubated sedated maintained on mechanical ventilation patient is maintained on assist control tidal volume 420 rate 32 FiO2 50% with a PEEP of 12 arterial blood gas reveals a pH of 7.44 pCO2 45 and PaO2 of 71 patient is having sedation holidays and is responding well at that time. On 03/08/2021, patient was seen and examined in the ICU he is intubated sedated maintained on mechanical ventilation, arterial blood gas Reveals a pH of 7.45 pCO2 44 PaO2 78 d-dimer 1.84, patient is maintained on assist control rate 32 tidal folium 420 FiO2 50% and a PEEP of 12 On 03/09/2021 patient was seen and examined in the ICU he is intubated sedated maintained on mechanical ventilation, he is scheduled for tracheostomy and PEG tube placement tomorrow, arterial blood gas reveals a pH of 7.4 to pCO2 48 PaO2 73 white blood count is 9.9 hemoglobin 11.6 platelet count 212 d-dimer is elevated at 3.4 On 03/10/2021, patient was seen and examined in the ICU he is intubated sedated maintained on mechanical ventilation, arterial blood gas Reveals a pH of 7.45 pCO2 44 PaO2 78 d-dimer 1.84, patient is maintained on assist control rate 32 tidal folium 420 FiO2 50% and a PEEP of 12 Patient is scheduled for tracheostomy and PEG tube placement today. On 03/11/2021 patient was seen and examined in the ICU he is intubated, sedated and maintained on mechanical ventilation, he underwent racheostomy and PEG tube placement yesterday, his vent setting patient is maintained on assist control rate of 32 tidal volume 420 FiO2 50% and PEEP of 10 ABG reveals pH 7.46 pCO2 41 PaO2 81 liver enzymes are slightly elevated was AST at 78 ALT at 265 On 03/12/2021 patient was seen and examined in the ICU he is intubated through tracheostom, he is alert responsive trying to answer questions, he is maintained on BiPAP, there is no fever or chills no headache or dizziness no chest pain no shortness of breath no palpitation no cough no nausea or vomiting no abdominal pain no diarrhea no blood in the stools no burning with urination no frequency or urgency and no hematuria, patient is improving gradually. On 03/13/2021 patient was seen and examined in the ICU he is intubated through tracheostomy, he is alert responsive. He is maintained on BiPAP, there is no fever or chills no headache or dizziness no chest pain no shortness of breath no palpitation no cough no nausea or vomiting no abdominal pain no diarrhea no blood in the stools no burning with urination no frequency or urgency and no hematuria, patient is improving gradually. He remains on Decadron 6 mg IV every 12 hours, and SQ Lovenox On 03/14/2021 patient was seen and examined in the ICU he is alert responsive in no apparent distress he is maintained on a trach collar at FiO2 50% vital exam reveals a temperature of 98.9 pulse 80 respiration 42 blood pressure 142/86 pulse ox 92% his white blood count is 15.2 hemoglobin 13.4 platelet count 192 d- dimer is up to 9.29 patient is maintained on IV Decadron and subcu Lovenox pulmonary are following closely On 03/15/2021 patient was seen and examined in the ICU he is alert responsive in no apparent distress he is maintained on a trach collar at FiO2 50% vital exam reveals a temperature of 98.9 pulse 80 respiration 42 blood pressure 142/86 pulse ox 92% his white blood count is 14.2 hemoglobin 14 platelet count 201 d- dimer is 8.7 patient is maintained on IV Decadron and subcu Lovenox pulmonary are following closely, surgery is following regarding ileus, CT scan of the abdomen ordered for today On 03/16/2021 patient was seen and examined in the ICU he is alert and responsive in no apparent distress he is maintained on oxygen through trach collar at 60%, patient has mild abdominal distention computed tomography scan of the abdomen was done and patient is followed by general surgery, vital examination today reveals a pulse of 94 respiration rate 50 blood pressure 117/76 and pulse ox 91% on trach collar. White blood count is 12.7 hemoglobin 14.3 platelet count 193 d-dimer 10.09 arterial blood gas reveals a pH of 7.36 pCO2 38 PaO2 232 glucose 148 AST 39 ALT 116 alkaline phosphatase 79 On 03/17/2021 patient remains in ICU. Patient was placed on mechanical ventilation. FiO2 50%. Concerns for new seizure activity. Neurology services are following recommendation from neurology services is transfer to higher level care due to patient needing MRI and possible neurosurgical consult given his age. Transfer in process to [facility]. Patient remains on small amount of Levophed along with high levels of sedation. Surgical services also following for pneumoperitoneum PEG tube is to dependent drainage. On 03/18/2021 patient remains in the intensive care unit on mechanical ventilation. According to nursing staff patient has been following commands and alert. FiO2 has been weaned to 40%. Repeat head CT was performed yesterday and was recommended per neuro services the patient be transferred to tertiary facility for neurosurgeon consult. According to nursing staff available at multiple hospitals. Patient to be rechecked for COVID today. 2 feeds continue to be on hold patient maintained on TPN. PEG tube to dependent drainage. On 03/19/2021 patient was seen and examined in the ICU he is alert responsive in no apparent distress he is maintained on oxygen via trach shield, FiO2 80% he denies any complaint at this time he denies any pain no headache no chest pain no abdominal pain no difficulty breathing no cough no nausea or vomiting no diarrhea and no urinary symptoms. Vital exam reveals a temperature of 98.9 puls e 65 respiration 27 blood pressure 100/60 pulse ox 97% white blood count 8.8 hemoglobin 12.0 platelet count 150 sodium 135 potassium 3.8 chloride 103 CO2 24 BUN 14 creatinine 0.55 d-dimer is elevated at 15.49 Objective - Vital Signs Vital signs: Vital Signs Temp 98.9 F 03/19/21 08:00 Pulse 72 03/19/21 11:00 Resp 27 H 03/19/21 11:00 BP 100/60 03/19/21 11:00 Pulse Ox 93 L 03/19/21 11:00 Intake & Output 03/18/21 03/19/21 03/19/21 18:59 06:59 18:59 Intake Total 1225.012 879.2 869.0 Output Total 1530 1160 275 Balance -304.988 -280.8 594.0 Weight 108.9 kg Intake: IV 1045 879.2 869.0 ACETAMINOPHEN IV (For NPO 100 ) 1,000 mg In Empty Bag 1 bag @ 400 mls/hr IVPB Q6HR PRN Rx#:[id number] Magnesium Sulfate-D5w Pmx 200 200 1 gm In Dextrose/Water 1 100ml.bag @ 100 mls/hr IVPB Q1H TERI Rx#: [id number] Mvi, Adult No.4 with Vit 360 484.2 219.0 K 10 ml Trace (Conc-1Ml/ Dose) 1 ml Sodium Acetate 40 meq Potassium Acetate 20 meq Calcium Gluconate 1 gm In Amino Acid 5%- D15w 1,000 ml @ 40 mls/hr IV .Q24H TERI Rx#: [id number] Piperacillin-Tazobactam 3 175 125 100 .375 gm In Sodium Chloride 0.9% 100 ml @ 25 mls/hr IVPB Q8HR TERI Rx# :[id number] Potassium replacement 200 200 Sodium Chloride 0.9% 1, 10 70 50 000 ml @ 10 mls/hr IV . Q24H TERI Rx#:[id number] levETIRAcetam IV 1,000 mg 100 100 100 In Saline 1 100ml.bag @ 400 mls/hr IVPB Q12HR TERI Rx#:[id number] Intake, IV Titration 180.012 Amount Norepinephrine 32 mg In 50.544 Sodium Chloride 0.9% 218 ml @ 0.05 MCG/KG/MIN 2. 578 mls/hr IV .Q24H TERI Rx#:[id number] propofoL 1,000 mg In 129.468 Empty Bag 1 bag @ Titrate IV .Q0M TERI Rx#: [id number] Output: Gastric Drainage 160 370 Urine 1370 790 275 Other: Voiding Method Indwelling Catheter Indwelling Catheter Indwelling Catheter ABP, PAP, CO, CI - Last Documented Arterial Blood Pressure 102/72 - Exam In general patient is alert and responsive, maintained on oxygen via trach shield HEENT head normocephalic and atraumatic Neck is supple no JVD no goiter no lymphadenopathy Chest exam reveals a few scattered crackles no wheezing Cardiac exam reveals regular heart sounds no gallops no murmurs Abdomen is soft nontender no organomegaly with normal bowel sounds, slightly distended Extremity exam reveals no edema no cyanosis or clubbing Neurological examination reveals no gross focal deficit - Labs CBC & Chem 7: 03/19/21 03:44 03/19/21 03:44 Labs: Abnormal Lab Results - Last 24 Hours (Table) 03/18/21 03/18/21 03/19/21 Range/Units 03:27 23:44 03:44 RBC (4.30-5.90) m/uL Hgb (13.0-17.5) gm/dL Hct (39.0-53.0) % D-Dimer 15.49 H (<0.60) mg/L FEU Sodium (137-145) mmol/L Creatinine (0.66-1.25) mg/dL Glucose (74-99) mg/dL POC Glucose (mg/dL) 102 H (75-99) mg/dL ALT (4-49) U/L Lactate Dehydrogenase (313-618) U/L C-Reactive Protein (<1.0) mg/dL Total Protein (6.3-8.2) g/dL Albumin (3.5-5.0) g/dL Procalcitonin 0.14 H (0.02-0.09) ng/mL 03/19/21 03/19/21 03/19/21 Range/Units 03:44 03:44 11:22 RBC 3.88 L (4.30-5.90) m/uL Hgb 12.0 L (13.0-17.5) gm/dL Hct 35.0 L (39.0-53.0) % D-Dimer (<0.60) mg/L FEU Sodium 135 L (137-145) mmol/L Creatinine 0.55 L (0.66-1.25) mg/dL Glucose 104 H (74-99) mg/dL POC Glucose (mg/dL) 123 H (75-99) mg/dL ALT 61 H (4-49) U/L Lactate Dehydrogenase 752 H (313-618) U/L C-Reactive Protein 7.8 H (<1.0) mg/dL Total Protein 5.8 L (6.3-8.2) g/dL Albumin 3.2 L (3.5-5.0) g/dL Procalcitonin (0.02-0.09) ng/mL Microbiology - Last 24 Hours (Table) 03/16/21 00:12 Gram Stain - Final Sputum Sputum Culture - Final Staphylococcus aureus Assessment and Plan Plan: 1. Acute COVID-19 pneumonia patient started on IV Decadron and subcu Lovenox pulmonary consultation was requested, patient developed acute hypoxic respiratory failure requiring intubation and mechanical ventilation 2. Underlying history of asthma 3. Underlying history of morbid obesity 4. Hyponatremia 5. Elevated liver enzymes, will monitor closely 6. Pneumoperitoneum post PEG tube insertion. Surgical services are following PEG tube to dependent drainage 7. Acute and new onset seizure activity. Patient was started on Keppra and treated with Ativan. Neurology services are following recommend transfer to higher level of care for possible MRI and neurosurgical consult, however transfer was not possible due bed availability at multiple tertiary care centers 8. Methicillin sensitive staph aureus and maxilla catarrhalis tracheal bronchitis bronchopneumonia Patient remains in the intensive care unit Critical care, surgical services and neurology services following Attempting transfer to tertiary facility for neurosurgical consult
[2021-03-19 17:37] LABS: Glucose,Whole Blood 97 mg/dL (75-99)
[2021-03-19] MEDS ORDERED: ENOXAPARIN 40 MG/0.4 ML SYRINGE SQ SCH (21:00)
[2021-03-19] MEDS: ENOXAPARIN 60 MG/0.6 ML SYRINGE SQ SCH (21:17)
[2021-03-19] MEDS: SODIUM CHLORIDE 0.9% 1,000 ML IV SCH (21:18)
[2021-03-19] MEDS ORDERED: MVI, ADULT NO.4 WITH VIT K 10 ML, TRACE (CONC-1ML/DOSE) 1 ML, SODIUM ACETATE 50 MEQ, PO... IV SCH ×7 (22:00)
[2021-03-20] MEDS: METOCLOPRAMIDE 5 MG/ML 2 ML VIAL IVP SCH ×4 (00:25→18:46)
[2021-03-20] MEDS: PIPERACILLIN-TAZOBACTAM 3.375 GM in SODIUM CHLORIDE 0.9% 100 ML IVPB SCH ×3 (00:25→15:11)
[2021-03-20 03:46] LABS: Basophils % (A) 0 %; Eosinophils # (A) 0.1 k/uL (0-0.7); Eosinophils % (A) 1 %; HCT 35.3 % (39.0-53.0); Lymphocytes # (A) 1.1 k/uL (1.0-4.8); Lymphocytes % (A) 13 %; MCH 30.6 pg (25.0-35.0); MCHC 33.9 g/dL (31.0-37.0); MCV 90.4 fL (80.0-100.0); Mean Platelet Volume 8.8; Monocytes # (A) 0.6 k/uL (0-1.0); Monocytes % (A) 7 %; Neutrophils # (A) 6.8 k/uL (1.3-7.7); Neutrophils % (A) 78 %; Platelet Count 137 k/uL (150-450); RDW 14.7 % (11.5-15.5); WBC 8.8 k/uL (3.8-10.6)
[2021-03-20 04:01] LABS: ALT 58 U/L (4-49); AST 28 U/L (17-59); African American GFR (CKD) >90 (>60 ml/min/1.73 sqM); Albumin 3.4 g/dL (3.5-5.0); Alkaline Phosphatase 65 U/L (38-126); Anion Gap 9 mmol/L; Blood Urea Nitrogen 13 mg/dL (9-20); Calcium 8.8 mg/dL (8.4-10.2); Carbon Dioxide 23 mmol/L (22-30); Chloride 104 mmol/L (98-107); Glucose 89 mg/dL (74-99); Magnesium 1.8 mg/dL (1.6-2.3); Non-African American GFR(CKD) >90 (>60 ml/min/1.73 sqM); Phosphorus 2.8 mg/dL (2.5-4.5); Potassium 3.8 mmol/L (3.5-5.1); Sodium 136 mmol/L (137-145)
[2021-03-20 05:54] LABS: Glucose,Whole Blood 101 mg/dL (75-99)
[2021-03-20] MEDS: ALBUTEROL HFA INHALER INHALATION SCH ×4 (07:23→19:31)
--- NOTE | 2021-03-20 08:17 | XR ---
EXAMINATION TYPE: XR chest 1V portable DATE OF EXAM: 03/20/2021 COMPARISON: Chest x-ray dated 03/19/2021 HISTORY: Congestion, fever TECHNIQUE: Single frontal view of the chest is obtained. FINDINGS: Tracheostomy tube, left-sided PICC line are overlying appropriate positions. Cardiac media stinal silhouette is stable. Lung volumes are low. No evident pneumothorax or pleural effusion. Patch y bilateral airspace disease is again seen. IMPRESSION: Findings are similar to prior exam. Correlate for pneumonia. Expiratory exam.
[2021-03-20] MEDS: bisacodyL 10 MG SUPP RECTAL SCH (09:15)
[2021-03-20] MEDS: levETIRAcetam IV 1,000 MG in SALINE 1 100ML.BAG IVPB SCH ×2 (09:54→21:59)
[2021-03-20] MEDS: PANTOPRAZOLE 40 MG/10 ML VIAL IV SCH (09:54)
[2021-03-20] MEDS: DEXAMETHASONE SOD PHOSPHATE 4 MG/ML 1 ML VIAL IV SCH (09:54)
[2021-03-20] MEDS: ENOXAPARIN 60 MG/0.6 ML SYRINGE SQ SCH ×2 (09:55→21:59)
[2021-03-20 11:21] VITALS: BMI 35.3
--- NOTE | 2021-03-20 11:21 | P.PN ---
Subjective Progress Note Date: 03/20/21 Principal diagnosis: Acute hypoxic respiratory failure secondary to COVID-19 pneumonia. 35-year-old male admitted with a diagnosis of acute hypoxemic respiratory failure secondary to COVID 19 pneumonia. Chest x-ray showed multifocal bilateral infiltrates. In addition, the patient is morbidly obese, likely has sleep apnea syndrome, has lymphopenia, hyponatremia, and elevated liver function tests, all secondary to COVID 19. Currently, the patient's on saline at 75 mL an hour, and high flow nasal O2 at 15 L/m. White count 6.2, hemoglobin 13.8, hematocrit 39.0, and platelet count 262,000. D-dimer is 1.51. Sodium 127, potassium 4, chlorides 94, CO2 25, anion gap 8, BUN 13, creatinine 0.81. LDH is 1969, and C-reactive protein is 8.9. Chest x-ray shows bilateral infiltrates. Progress note dated 02/28/2021. 35-year-old male with a diagnosis of acute hypoxemic respiratory failure secondary to COVID 19 pneumonia. Chest x-ray showed multifocal bilateral infiltrates. The patient also has obesity, sleep apnea syndrome, lymphopenia, hyponatremic, and liver function abnormalities, all consistent with coronavirus infection. Yesterday, the patient was on high flow nasal O2, and nonrebreather mask. This morning, the respiratory therapist switch him over to AIRVO, at 60 L/m and 90% FiO2. The patient is not receiving any IV fluids. D-dimer is 4.62. Patient was reevaluated today on 03/01/2021, patient remains on selective, however I was called to see the patient. He seems to be in severe respiratory distress. Patient is on BiPAP, his respiratory rate is 16 times per minute, patient is anxious, and his O2 saturation is 92%. Clearly the patient is in severe respiratory distress, chest x-ray showed bilateral patchy infiltrates, and a dilated stomach, and some dilated bowel loops. Could not place a nasogastric tube because the patient was on BiPAP, and noted to be desaturating easily. As soon as I evaluated the patient, I recommended immediate transfer to the ICU, intubation mechanical ventilation. Patient will be placed on tidal volume is 400, assist control rate of 30, 100% FiO2, and PEEP of 10. Follow-up chest x-ray will be done post intubation, and a nasogastric tube will also be placed as soon as the patient is intubated. We are in the process of transferring the patient now to the ICU for intubation mechanical ventilation, as his pulmonary status seems to be deteriorating quite fast. ABG from earlier today showed a pO2 of 78 pCO2 of 55 pH of 7.24, and this was on BiPAP 100% FiO2. This ABG was done at 8:15 AM. Inflammatory markers noted to be on the rise, LDH is 2035, and C-reactive protein is 4.5. The CBC count is 19.9 hemoglobin is 15.5. D-dimer is 4.62. Sodium is low at 127 potassium is 5.0. Renal profile is normal. Patient was reevaluated today on 03/02/2021, remains in the ICU, patient had to be intubated yesterday. His pulmonary status deteriorated in spite of being maximized on BiPAP. Hence I recommended intubation and mechanical ventilation. He is now on assist control rate of 3 to tidal volume is 420 FiO2 is 95% and PEEP of 16. ABG showed a pO2 of 87 pCO2 of 59 pH of 7.31. Peak airway pressure is 34, static pressure is 32. Patient is on propofol at 60 Nimbex at 1.5, I recommended adding fentany propofol and Nimbex. Patient was intubated on 03/01. He has a low-grade fever, I would place the patient empirically on Zosyn, patient will be pancultured today. Including blood cultures, sputum cultures, and urine cultures. We'll also order a pro calcitonin on this patient. D-dimer today is 1.81. Blood sugar is 150. WBC count is 15 hemoglobin is 13.7. LDH is coming down to 1221, and C-reactive protein is a bit elevated at 5.4. Chest x- ray continues to show bilateral patchy infiltrates, slightly improved, but that is mostly because of high PEEP Patient was reevaluated today on 03/03/2021, remains in the ICU, intubated and mechanically ventilated. Sedated and paralyzed with Nimbex. He is on assist control rate of 3 to tidal volume 420 FiO2 85% and PEEP of 16 his ABG showed a pO2 of 66 pCO2 of 55 pH of 7.39. Patient is noted to have some minimal air leak from the endotracheal tube, and respiratory will adjust endotracheal tube and possibly put somewhere in the cough. His ileus seems to be improving. Patient had 2 bowel movements last night. And he will be restarted today on trickle feeding. A shunt remains on IV fluid at 75 mL per hour in the formal 0.9 normal saline. Propofol at 70% and all at one except 1.5. Chest x-ray is showing minimal improvement in his bilateral patchy infiltrates. WBC count is 15.3 hemoglobin is 12.2 hematocrit is 38.2 electrolytes are normal, renal profile is normal LDH is 1034. C-reactive protein is 2.8. Patient was reevaluated today on 03/04/2021, patient remains in the ICU, intubated and mechanically ventilated. He is on assist control rate of 3 to tidal volume is 420 FiO2 85% PEEP of 6 however I cut down his FiO2 and I plan to maintain O2 saturation just at 90% if possible. I did cut down his FiO2 to 75%. The PEEP the same at 16. Patient remains on propofol 70 Nimbex 1.5 fentanyl and 0.9 normal saline at 75 mL per hour. WBC count is 11.9 hemoglobin is 11.7. ABG showed a pO2 of 89 pCO2 53 pH of 7.41. Electrodes are normal bicarb is 34, renal profile is normal. X-ray continues to show bilateral bibasilar interst itial infiltrates consistent with COVID-19 pneumonia. LDH is down to 951. C- reactive protein is 1.6. Liver enzymes are relatively normal. D-dimer is 2.0. Patient was reevaluated today on 03/05/2021, patient remains in the ICU intubated, mechanically ventilated, sedated and paralyzed. He is on assist control rate of 3 to tidal volume is 420 FiO2 was 75% and I cut it down to 65% and PEEP at 16. ABG this morning showed a pO2 of 82 pCO2 of 48 pH of 7.43. Patient remains on enteral feeding/trickle feeding vital H3 at 10 mL per hour. His also on propofol at 50 mcg/kg/m, Nimbex at 2 mcg/kg/m, fentanyl 20 mcg/kg/h, and IV fluid at 85 ML per hour 0.9 normal saline. Chest x-ray continues to show by basilar rates consistent with COVID-19 pneumonia, slightly improving, could be because of relatively high PEEP. His inflammatory markers are also improving, LDH is 1034, C-reactive protein is 1.2. D-dimer is down to 1.85. CBC is relatively normal. Sputum cultures have been positive for Moraxella catarrhalis and MSSA. This will be treated with cefazolin and doxycycline. 03/19/2021, patient is awake, patient is calm and comfortable, communicating, although 4 extremities, although we will let he feels better and is able to raise his arms against gravity and move his feet and raised in size. He is very much appropriate is oriented and alert 3. He remains on trach collar and is of f the mechanical ventilator. Currently on 80% trach collar with a pulse ox of 88-89%. Repeat chest incision from today showing right pulmonary infiltrates specially in the lower lobes with some slight interval worsening of the right lower lobe pulmonary infiltrate and there is also air under the diaphragm consistent with pneumoperitoneum. The patient has MSSA in his rhythm. He is currently on Zosyn which is a adequate coverage for his MSSA in his sputum and it is all and is also adequate coverage for his underlying pneumoperitoneum and gastric complications postoperative discomfort. Note that his abdomen remains soft and there is no indication for underlying sepsis or abdominal catastrophe post PEG tube insertion despite the presence of pneumoperitoneum. He has been kept nothing by mouth. Is receiving PPN for nutritional support. PEG tube in place to drainage which is dependent drainage for now. Meanwhile, the patient is on Keppra. No seizure activity has been noted. He remains on Decadron. He is on a dose of 4 mg by mouth daily. D-dimer is on the rise is up to 15 and the patient's Lovenox dose will be adjusted accordingly. No fever. He is still positive for COVID-19 based on that evaluation. His LDH level is 752 which is low and his pro-calcitonin level is at 0.14. Patient was reevaluated today on 03/20/2021, remains in the ICU, patient is sitting in bed, in no distress, he has a trach collar and 60% FiO2 in place, patient seems to be very comfortable. He is receiving TPN. He seems to be alert and oriented 3, following instructions. I plan to discontinue TPN today and start enteral feeding via PEG tube. We will ask social science professor to evaluate for possible placement. Last week there was a delay in his transfer mostly because of his seizures and he is now on Keppra, has been seizure-free for the last few days. Again the patient seems to be comfortable, following instructions, chest x-ray continues to show by basilar infiltrates. CBC is relatively normal basic metabolic profile and profile are normal Objective - Vital Signs Vital signs: Vital Signs Temp 99 F 03/20/21 00:00 Pulse 80 03/20/21 08:00 Resp 30 H 03/20/21 08:00 BP 103/62 03/20/21 08:00 Pulse Ox 97 03/20/21 08:00 Intake & Output 03/19/21 03/20/21 03/20/21 18:59 06:59 18:59 Intake Total 1230.0 706 43 Output Total 975 1230 100 Balance 255.0 -524 -57 Weight 108.5 kg Intake: IV 939.0 220 10 Magnesium Sulfate-D5w Pmx 200 1 gm In Dextrose/Water 1 100ml.bag @ 100 mls/hr IVPB Q1H [facility]I Rx#: [id number] Mvi, Adult No.4 with Vit 219.0 K 10 ml Trace (Conc-1Ml/ Dose) 1 ml Sodium Acetate 40 meq Potassium Acetate 20 meq Calcium Gluconate 1 gm In Amino Acid 5%- D15w 1,000 ml @ 40 mls/hr IV .Q24H [facility]I Rx#: [id number] Piperacillin-Tazobactam 3 100 .375 gm In Sodium Chloride 0.9% 100 ml @ 25 mls/hr IVPB Q8HR [facility] Rx# :[id number] Potassium replacement 200 Sodium Chloride 0.9% 1, 120 120 10 000 ml @ 10 mls/hr IV . Q24H [facility] Rx#:[id number] levETIRAcetam IV 1,000 mg 100 100 In Saline 1 100ml.bag @ 400 mls/hr IVPB Q12HR [facility]I Rx#:[id number] Tube Feeding 231 396 33 Other 60 90 Output: Urine 975 1230 100 Other: Voiding Method Indwelling Catheter Indwelling Catheter ABP, PAP, CO, CI - Last Documented Arterial Blood Pressure 102/72 - Exam Physical Exam: Revealed 35-year-old white on trach collar, in no distress. Head: Atraumatic, normocephalic. Tracheostomy is intact. HEENT:[Neck is supple.] [No neck masses.] [No thyromegaly.] [No JVD.] Moist mucous membranes.. Chest: [Symmetrical chest expansion minimal crackles at the bases. No rhonchi, no wheezes. Cardiac Exam: [Normal S1 and S2, no S3 gallop, no murmur.] Abdomen: Soft, , nontender, no megaly, no rebound, no guarding, PEG tube is intact. Extremities: [No clubbing, 1+ bipedal edema, no cyanosis.] Neurological Exam: Alert and oriented 3 no gross focal deficit seems to be generally weak. Psychiatric: Normal mood, affect and normal mental status examination Skin: Multiple tattoos all over, otherwise unremarkable. Lymphatics: No lymphadenopathy. - Labs CBC & Chem 7: 03/20/21 03:10 03/20/21 03:10 Labs: Abnormal Lab Results - Last 24 Hours (Table) 03/19/21 03/20/21 03/20/21 Range/Units 11:22 03:10 03:10 RBC 3.90 L (4.30-5.90) m/uL Hgb 12.0 L (13.0-17.5) gm/dL Hct 35.3 L (39.0-53.0) % Plt Count 137 L (150-450) k/uL Sodium 136 L (137-145) mmol/L Creatinine 0.52 L (0.66-1.25) mg/dL POC Glucose (mg/dL) 123 H (75-99) mg/dL ALT 58 H (4-49) U/L Total Protein 6.0 L (6.3-8.2) g/dL Albumin 3.4 L (3.5-5.0) g/dL 03/20/21 Range/Units 05:52 RBC (4.30-5.90) m/uL Hgb (13.0-17.5) gm/dL Hct (39.0-53.0) % Plt Count (150-450) k/uL Sodium (137-145) mmol/L Creatinine (0.66-1.25) mg/dL POC Glucose (mg/dL) 101 H (75-99) mg/dL ALT (4-49) U/L Total Protein (6.3-8.2) g/dL Albumin (3.5-5.0) g/dL Assessment and Plan Assessment: Impression: Acute hypoxic respiratory failure secondary to COVID-19 pneumonia, requiring intubation mechanical ventilation. On 03/01/2021. Status post tracheostomy and PEG tube placement on 03/10, mostly because of failure to wean. Patient is now on trach collar. MSSA tracheobronchitis, possible MSSA pneumonia patient remains on Zosyn. Acute and new onset seizure activity, remains on Keppra. Pneumoperitoneum post-PEG tube insertion, that is expected. Remains on Zosyn. History of MSSA and Moraxella catarrhalis tracheobronchitis/bronchopneumonia. Morbid obesity. elevated liver enzymes secondary to above., improved. 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 Recommendation: Continue trach collar and titrate FiO2 down accordingly. Continue Decadron dose has been decreased. Continue Lovenox at 50 mg subcu twice a day. Continue compression stockings to lower his. developmental services worker to address placement on this patient. Change TPN for enteral feeding. Neurology to continue to follow regarding his seizures. Continue COVID-19 cocktail including Decadron and Lovenox. Patient was beyond the window for REM Patient did receive toci We'll continue to follow. Critical care time is over 30 minutes. Time with Patient: Greater than 30
[2021-03-20 11:47] LABS: Glucose,Whole Blood 99 mg/dL (75-99)
[2021-03-20] MEDS: NOREPINEPHRINE 32 MG in SODIUM CHLORIDE 0.9% 218 ML IV SCH (13:45)
[2021-03-20] MEDS: CLEVIDIPINE BUTYRATE 25 MG in EMPTY BAG 1 BAG IV SCH (13:46)
--- NOTE | 2021-03-20 14:06 | P.PN ---
Subjective Progress Note Date: 03/20/21 CHIEF COMPLAINT: Covid pneumonia HISTORY OF PRESENT ILLNESS: The patient is a 35 year old male with Covid pneumonia status post trach and PEG. Patient is currently sitting up in bed and appears comfortable. He is back on trach collar. He did have a temp of 102.9 early this morning. He denies any abdominal pain or nausea and vomiting. He is having bowel movements and passing gas. He was restarted on his tube feeds yesterday. His tube feeds are currently at 33 mL per hour. No residual reported. Critical care service has requested speech therapy to complete a modified barium swallow study. WBC 8.8 hemoglobin 12 platelets 137 creatinine 0.52 albumin 3.4 patient did have seizures at the end of last week and is currently on Keppra. No further seizure activity reported. Patient seen and examined with Dr. Nicholson, who is covering for Dr. Vargas PHYSICAL EXAM: VITAL SIGNS: Reviewed. GENERAL: Well-developed in no acute distress. HEENT: No sclera icterus. Extraocular movements grossly intact. Moist buccal mucosa. Head is atraumatic, normocephalic. Tracheostomy site clean dry and i ntact ABDOMEN: Soft. Nondistended nontender. PEG tube site clean dry and intact NEUROLOGIC: Awake and alert ASSESSMENT: 1. Pneumoperitoneum likely due to small microperforation where the sutures have pulled through the stomach wall at the PEG tube site 2. Acute hypoxic respiratory failure secondary to COVID-19 pneumonia with prolonged mechanical ventilation status post tracheostomy placement 3. Severe protein calorie malnutrition status post PEG tube placement 4. Ileus resolved PLAN: -Continue tube feedings -Continue to monitor -Continue empiric antibiotics -Continue ICU management -Continue supportive care Physician Sample Coordinator note has been reviewed by physician. Signing provider agrees with the documented findings, assessment, and plan of care. Objective - Vital Signs Vital signs: Vital Signs Temp 99.1 F 03/20/21 12:00 Pulse 75 03/20/21 13:00 Resp 30 H 03/20/21 13:00 BP 104/57 03/20/21 13:00 Pulse Ox 96 03/20/21 13:00 Intake & Output 03/19/21 03/20/21 03/20/21 18:59 06:59 18:59 Intake Total 1230.0 706 599 Output Total 975 1230 625 Balance 255.0 -524 -26 Weight 108.5 kg 108.5 kg Intake: IV 939.0 220 260 Magnesium Sulfate-D5w Pmx 200 1 gm In Dextrose/Water 1 100ml.bag @ 100 mls/hr IVPB Q1H [facility] Rx#: [id number] Mvi, Adult No.4 with Vit 219.0 K 10 ml Trace (Conc-1Ml/ Dose) 1 ml Sodium Acetate 40 meq Potassium Acetate 20 meq Calcium Gluconate 1 gm In Amino Acid 5%- D15w 1,000 ml @ 40 mls/hr IV .Q24H [facility] Rx#: [id number] Piperacillin-Tazobactam 3 100 100 .375 gm In Sodium Chloride 0.9% 100 ml @ 25 mls/hr IVPB Q8HR [facility] Rx# :[id number] Potassium replacement 200 Sodium Chloride 0.9% 1, 120 120 60 000 ml @ 10 mls/hr IV . Q24H [facility] Rx#:[id number] levETIRAcetam IV 1,000 mg 100 100 100 In Saline 1 100ml.bag @ 400 mls/hr IVPB Q12HR [facility] Rx#:[id number] Tube Feeding 231 396 279 Other 60 90 60 Output: Urine 975 1230 625 Other: Voiding Method Indwelling Catheter Indwelling Catheter Indwelling Catheter ABP, PAP, CO, CI - Last Documented Arterial Blood Pressure 102/72 - Labs CBC & Chem 7: 03/20/21 03:10 03/20/21 03:10 Labs: Abnormal Lab Results - Last 24 Hours (Table) 03/20/21 03/20/21 03/20/21 Range/Units 03:10 03:10 05:52 RBC 3.90 L (4.30-5.90) m/uL Hgb 12.0 L (13.0-17.5) gm/dL Hct 35.3 L (39.0-53.0) % Plt Count 137 L (150-450) k/uL Sodium 136 L (137-145) mmol/L Creatinine 0.52 L (0.66-1.25) mg/dL POC Glucose (mg/dL) 101 H (75-99) mg/dL ALT 58 H (4-49) U/L Total Protein 6.0 L (6.3-8.2) g/dL Albumin 3.4 L (3.5-5.0) g/dL
[2021-03-20 18:13] LABS: Glucose,Whole Blood 82 mg/dL (75-99)
[2021-03-20] MEDS: HYDROmorphone 1 MG/ML 1 ML SYRINGE IVP PRN (18:47)
[2021-03-20] MEDS: SODIUM CHLORIDE 0.9% 1,000 ML IV SCH (22:01)
[2021-03-20 23:48] LABS: Glucose,Whole Blood 85 mg/dL (75-99)
[2021-03-21] MEDS: METOCLOPRAMIDE 5 MG/ML 2 ML VIAL IVP SCH ×3 (00:48→12:09)
[2021-03-21] MEDS: PIPERACILLIN-TAZOBACTAM 3.375 GM in SODIUM CHLORIDE 0.9% 100 ML IVPB SCH ×2 (00:49→08:48)
[2021-03-21 02:00] LABS: Glucose,Whole Blood 115 mg/dL (75-99)
[2021-03-21] MEDS ORDERED: levETIRAcetam IV 1,000 MG in SALINE 1 100ML.BAG IVPB ONE (02:30)
[2021-03-21 03:58] LABS: Basophils % (A) 0 %; Eosinophils # (A) 0.1 k/uL (0-0.7); Eosinophils % (A) 1 %; HCT 34.9 % (39.0-53.0); HGB 11.7 gm/dL (13.0-17.5); Lymphocytes # (A) 0.8 k/uL (1.0-4.8); Lymphocytes % (A) 9 %; MCH 30.3 pg (25.0-35.0); MCHC 33.6 g/dL (31.0-37.0); MCV 90.2 fL (80.0-100.0); Mean Platelet Volume 8.9; Monocytes # (A) 0.6 k/uL (0-1.0); Monocytes % (A) 7 %; Neutrophils # (A) 7.2 k/uL (1.3-7.7); Neutrophils % (A) 81 %; Platelet Count 170 k/uL (150-450); RBC 3.87 m/uL (4.30-5.90); RDW 14.6 % (11.5-15.5); WBC 8.9 k/uL (3.8-10.6)
[2021-03-21 04:10] LABS: ALT 73 U/L (4-49); AST 37 U/L (17-59); African American GFR (CKD) >90 (>60 ml/min/1.73 sqM); Albumin 3.3 g/dL (3.5-5.0); Alkaline Phosphatase 70 U/L (38-126); Anion Gap 11 mmol/L; Blood Urea Nitrogen 13 mg/dL (9-20); Calcium 8.8 mg/dL (8.4-10.2); Carbon Dioxide 22 mmol/L (22-30); Chloride 103 mmol/L (98-107); Glucose 89 mg/dL (74-99); Non-African American GFR(CKD) >90 (>60 ml/min/1.73 sqM); Potassium 3.9 mmol/L (3.5-5.1); Sodium 136 mmol/L (137-145); Total Protein 5.9 g/dL (6.3-8.2)
[2021-03-21 05:55] LABS: Glucose,Whole Blood 84 mg/dL (75-99)
--- NOTE | 2021-03-21 06:52 | XR ---
EXAMINATION TYPE: XR chest 1V portable DATE OF EXAM: 03/21/2021 COMPARISON: Chest x-ray 03/20/2021 HISTORY: Congestion with fever TECHNIQUE: Single frontal view of the chest is obtained. FINDINGS: Lung volumes are low. Bilateral airspace disease is present. No evident pneumothorax or si zable effusion. Tracheostomy tube is in place, left-sided PICC line shows the distal tip near the cav oatrial junction level. IMPRESSION: Findings are similar, correlate for pneumonia
[2021-03-21] MEDS: ALBUTEROL HFA INHALER INHALATION SCH ×2 (08:33→11:50)
[2021-03-21] MEDS: bisacodyL 10 MG SUPP RECTAL SCH (08:40)
[2021-03-21] MEDS: ENOXAPARIN 60 MG/0.6 ML SYRINGE SQ SCH (08:49)
[2021-03-21] MEDS: PANTOPRAZOLE 40 MG/10 ML VIAL IV SCH (08:49)
[2021-03-21] MEDS: DEXAMETHASONE SOD PHOSPHATE 4 MG/ML 1 ML VIAL IV SCH (08:49)
--- NOTE | 2021-03-21 11:01 | P.PN ---
Subjective Progress Note Date: 03/21/21 I am seeing the patient for the first time. Please refer to Dr. Ruvalcaba's note for further detailed of neurological history. Overnight the patient had a seizure lasting 3 minutes in which she had jerking of his extremities as a result the patient was given 2 mg and a seizure seized. Afterwards the patient that it was post ictal state. After the seizure resolved I was informed but the seizure and I notified the team to the increased the Keppra from thousand milligrams every 12 hours to 1500mg every 12 hours. I also asked for the patient to receive a loading dose of Keppra for thousand milligram once. Note Dr. Best felt the patient had hydrocephalus which appears slightly worse then higher image. He recommended the patient to be transferred to a higher level of care because of the need for MRI and possible neurosurgical consultation given his young age. Per the patient nurse she is unsure the delay of the transfer. Objective - Vital Signs Vital signs: Vital Signs Temp 99.2 F 03/21/21 04:00 Pulse 88 03/21/21 07:00 Resp 40 H 03/21/21 07:00 BP 104/61 03/21/21 07:00 Pulse Ox 92 L 03/21/21 07:00 Intake & Output 03/20/21 03/21/21 03/21/21 18:59 06:59 18:59 Intake Total 1039 190 10 Output Total 1005 840 90 Balance 34 -650 -80 Weight 108.5 kg 110.2 kg Intake: IV 410 120 10 Piperacillin-Tazobactam 3 200 .375 gm In Sodium Chloride 0.9% 100 ml @ 25 mls/hr IVPB Q8HR [facility] Rx# :[id number] Sodium Chloride 0.9% 1, 110 120 10 000 ml @ 10 mls/hr IV . Q24H [facility] Rx#:[id number] levETIRAcetam IV 1,000 mg 100 In Saline 1 100ml.bag @ 400 mls/hr IVPB Q12HR [facility] Rx#:[id number] Tube Feeding 539 70 Other 90 0 Output: Urine 1005 840 90 Other: Voiding Method Indwelling Catheter Indwelling Catheter ABP, PAP, CO, CI - Last Documented Arterial Blood Pressure 102/72 - Exam GENERAL: The patient is lying in bed and is not in acute distress. LUNG: Has trach collar at 40% of FiO2. NEUROLOGICAL: Higher mental function: The patient is awake, alert, oriented to self, place and time and would answer with options. Patient is following commands. No neglect. Cranial nerves: The pupils are round, equal and reactive to light and accommoda tion. Visual sylvester are full to confrontation throughout. Extraocular movement is intact no nystagmus is noted. Facial sensation is normal to touch throughout. The facial strength is normal throughout. Tongue is midline and moved [id number] without any difficulty. No dysarthria is noted. Shoulder shrug is normal bilaterally. Motor: The strength is 5 over 5 throughout. Normal tone and bulk. Cerebellum: Normal finger to nose bilaterally. Sensation: Sensation is normal to touch throughout. Reflexes (right/left): 2+ throughout. Plantars are downgoing bilaterally. - Labs CBC & Chem 7: 03/21/21 03:05 03/21/21 03:05 Labs: Abnormal Lab Results - Last 24 Hours (Table) 03/21/21 03/21/21 03/21/21 Range/Units 01:58 03:05 03:05 RBC 3.87 L (4.30-5.90) m/uL Hgb 11.7 L (13.0-17.5) gm/dL Hct 34.9 L (39.0-53.0) % Lymphocytes # 0.8 L (1.0-4.8) k/uL Sodium 136 L (137-145) mmol/L Creatinine 0.54 L (0.66-1.25) mg/dL POC Glucose (mg/dL) 115 H (75-99) mg/dL ALT 73 H (4-49) U/L Total Protein 5.9 L (6.3-8.2) g/dL Albumin 3.3 L (3.5-5.0) g/dL Assessment and Plan Assessment: 35-year-old male, with acute Covid-19 pneumonia, status post tracheostomy and PEG placement, improving significantly, had a new onset seizures (x2, half hour apart) witnessed by the staff yesterday on 03/16/2021. Patient has significant post ictal state. He had another seizure on 03/21/2021 lasting 3 minutes with post-ictal phase. * Epilepsy unknow etiology. * Computed tomography scan of head showed mild hydrocephalus with no acute process otherwise. Uncertain if the hydrocephalus is new finding or old/conge nital. No previous comparison CT head films available. EEG revealed disorganization suggestive of encephalopathy and medication effect. * Acute encephalopathy following seizure, unclear etiology, probable post ictal state, now improved. * Acute hypoxemic respiratory failure, status post tracheostomy and PEG placement. * Large pneumoperitoneum * Tracheobronchitis * Obesity * Elevated liver functions, secondary to fajardo virus infection, improving. Plan: * Per Dr. Ruvalcaba: Repeat computed tomography scan of the head was performed, which reported as "some hydrocephalus without change compared to old exam. No acute intracranial abnormality". Right maxillary sinusitis. On my review, the two studies have different positioning of the head, therefore on axial images hydrocephalus appears slightly worse than yesterday, although on sagittal views appears unchanged. * CTA of head and neck showed no large vessel occlusion. * Continue IV keppra 1500mg every 12 hours * Will get repeat CT head * Will get prolonged 2.5 hour EEG. * Suggest patient be transferred to higher level of care because of need for MRI and possible neurosurgery consultation, given his young age. * Other medical/surgical management as per IM and other specialties. * I spoke with Johan Duque physician and he accepted the patient. The plan is discussed with the patient's nurse. Joselito Joyner MD Neuro-Hospitalist Time with Patient: Less than 30
--- NOTE | 2021-03-21 11:14 | P.PN ---
<Virginia Virk - Last Filed: 03/21/21 11:08> Subjective Progress Note Date: 03/21/21 CHIEF COMPLAINT: Covid pneumonia HISTORY OF PRESENT ILLNESS: The patient is a 35 year old male with Covid pneumonia status post trach and PEG. Patient had another seizure last night. He is followed by neurology. They have ordered another computed tomography scan of the brain. And are working on transferring patient to tertiary care center. Today patient is complaining of some diffuse abdominal pain. He is having a watery bloody discharge from the PEG tube site. One of the buttons from the PEG tube has fallen off. He is having bowel movements. No nausea or vomiting reported. Tube feedings are currently on hold. Afebrile. He is on trach collar FiO2 40%. WBC 8.9 hemoglobin 11.7 PHYSICAL EXAM: VITAL SIGNS: Reviewed. GENERAL: Well-developed in no acute distress. HEENT: No sclera icterus. Extraocular movements grossly intact. Moist buccal mucosa. Head is atraumatic, normocephalic. Tracheostomy site clean dry and intact ABDOMEN: Soft. Mildly distended. Diffuse abdominal tenderness. PEG tube site watery bloody discharge noted NEUROLOGIC: Awake and alert ASSESSMENT: 1. Pneumoperitoneum likely due to small microperforation where the sutures have pulled through the stomach wall at the PEG tube site 2. Acute hypoxic respiratory failure secondary to COVID-19 pneumonia with prolonged mechanical ventilation status post tracheostomy placement 3. Severe protein calorie malnutrition status post PEG tube placement 4. Ileus resolved PLAN: -Further recommendations forthcoming per surgeon -Tube feedings currently on hold -Continue to monitor -Continue empiric antibiotics -Continue ICU management -Continue supportive care Physician Printing Sign Machine Operator note has been reviewed by physician. Signing provider agrees with the documented findings, assessment, and plan of care. Objective - Vital Signs Vital signs: Vital Signs Temp 99.2 F 03/21/21 04:00 Pulse 88 03/21/21 07:00 Resp 40 H 03/21/21 07:00 BP 104/61 03/21/21 07:00 Pulse Ox 92 L 03/21/21 07:00 Intake & Output 03/20/21 03/21/21 03/21/21 18:59 06:59 18:59 Intake Total 1039 190 10 Output Total 1005 840 90 Balance 34 -650 -80 Weight 108.5 kg 110.2 kg Intake: IV 410 120 10 Piperacillin-Tazobactam 3 200 .375 gm In Sodium Chloride 0.9% 100 ml @ 25 mls/hr IVPB Q8HR [facility] Rx# :[id number] Sodium Chloride 0.9% 1, 110 120 10 000 ml @ 10 mls/hr IV . Q24H [facility] Rx#:[id number] levETIRAcetam IV 1,000 mg 100 In Saline 1 100ml.bag @ 400 mls/hr IVPB Q12HR [facility] Rx#:[id number] Tube Feeding 539 70 Other 90 0 Output: Urine 1005 840 90 Other: Voiding Method Indwelling Catheter Indwelling Catheter ABP, PAP, CO, CI - Last Documented Arterial Blood Pressure 102/72 - Labs CBC & Chem 7: 03/21/21 03:05 03/21/21 03:05 Labs: Abnormal Lab Results - Last 24 Hours (Table) 03/21/21 03/21/21 03/21/21 Range/Units 01:58 03:05 03:05 RBC 3.87 L (4.30-5.90) m/uL Hgb 11.7 L (13.0-17.5) gm/dL Hct 34.9 L (39.0-53.0) % Lymphocytes # 0.8 L (1.0-4.8) k/uL Sodium 136 L (137-145) mmol/L Creatinine 0.54 L (0.66-1.25) mg/dL POC Glucose (mg/dL) 115 H (75-99) mg/dL ALT 73 H (4-49) U/L Total Protein 5.9 L (6.3-8.2) g/dL Albumin 3.3 L (3.5-5.0) g/dL <Rk Vargas - Last Filed: 03/21/21 15:39> Subjective As above. Patient apparently was complaining of some pain around the PEG tube exit site. One of the buttons on the 3 stay sutures as fallen off. His tube feeds were held. This morning his pain had resolved. He was thought to be slightly more distended. Patient is having bowel movements. No nausea or vomiting. He is on a trach collar. Abdominal x-rays were obtained and no definite pneumoperitoneum was seen however the study was somewhat suboptimal. On exam he has no significant tenderness. Will resume tube feeds at 30 mL/h. If patient transferred I would like an opportunity to discuss his case with a consulting surgical team. I did discuss this with the accepting hospitalist at the outside institution. Objective - Vital Signs Vital signs: Vital Signs Temp 98.7 F 03/21/21 12:00 Pulse 86 03/21/21 14:00 Resp 37 H 03/21/21 14:00 BP 116/65 03/21/21 14:00 Pulse Ox 94 L 03/21/21 14:00 Intake & Output 03/20/21 03/21/21 03/21/21 18:59 06:59 18:59 Intake Total 1039 190 10 Output Total 1005 840 90 Balance 34 -650 -80 Weight 108.5 kg 110.2 kg Intake: IV 410 120 10 Piperacillin-Tazobactam 3 200 .375 gm In Sodium Chloride 0.9% 100 ml @ 25 mls/hr IVPB Q8HR [facility] Rx# :[id number] Sodium Chloride 0.9% 1, 110 120 10 000 ml @ 10 mls/hr IV . Q24H [facility] Rx#:[id number] levETIRAcetam IV 1,000 mg 100 In Saline 1 100ml.bag @ 400 mls/hr IVPB Q12HR [facility] Rx#:[id number] Tube Feeding 539 70 Other 90 0 Output: Urine 1005 840 90 Other: Voiding Method Indwelling Catheter Indwelling Catheter Indwelling Catheter ABP, PAP, CO, CI - Last Documented Arterial Blood Pressure 102/72 - Labs CBC & Chem 7: 03/21/21 03:05 03/21/21 03:05 Labs: Abnormal Lab Results - Last 24 Hours (Table) 03/21/21 03/21/21 03/21/21 Range/Units 01:58 03:05 03:05 RBC 3.87 L (4.30-5.90) m/uL Hgb 11.7 L (13.0-17.5) gm/dL Hct 34.9 L (39.0-53.0) % Lymphocytes # 0.8 L (1.0-4.8) k/uL Sodium 136 L (137-145) mmol/L Creatinine 0.54 L (0.66-1.25) mg/dL POC Glucose (mg/dL) 115 H (75-99) mg/dL ALT 73 H (4-49) U/L Total Protein 5.9 L (6.3-8.2) g/dL Albumin 3.3 L (3.5-5.0) g/dL Assessment and Plan (1) Ileus Current Visit: Yes Status: Acute Code(s): K56.7 - ILEUS, UNSPECIFIED SNOMED Code(s): 765596141
[2021-03-21 11:31] LABS: Glucose,Whole Blood 76 mg/dL (75-99)
--- NOTE | 2021-03-21 11:46 | CT ---
EXAMINATION TYPE: CT brain wo con DATE OF EXAM: 03/21/2021 COMPARISON: 03/16/2021, 03/17/2021 INDICATION: Seizure DLP: 1086.4 mGycm, Automated exposure control for dose reduction was used. CONTRAST: None CT of the brain is performed utilizing 3 mm thick sections through the posterior fossa and 3 mm thick sections through the remaining calvarium. Study is performed within 24 hours of arrival to the hosp ital. No abnormal hyperdensity is present to suggest an acute intracranial hemorrhage. No mass lesion is evident. No acute infarcts are evident. Ventricles and sulci are stable in appearance compared to prior exams. No increasing temporal horn di latation is evident. Third and fourth ventricle remain stable. Paranasal sinuses and mastoid air cells within the [id number] are clear. IMPRESSIONS: 1. No significant change from prior exams.
--- NOTE | 2021-03-21 12:10 | P.PN ---
Subjective Progress Note Date: 03/21/21 Principal diagnosis: Acute hypoxic respiratory failure secondary to COVID-19 pneumonia. 35-year-old male admitted with a diagnosis of acute hypoxemic respiratory failure secondary to COVID 19 pneumonia. Chest x-ray showed multifocal bilateral infiltrates. In addition, the patient is morbidly obese, likely has sleep apnea syndrome, has lymphopenia, hyponatremia, and elevated liver function tests, all secondary to COVID 19. Currently, the patient's on saline at 75 mL an hour, and high flow nasal O2 at 15 L/m. White count 6.2, hemoglobin 13.8, hematocrit 39.0, and platelet count 262,000. D-dimer is 1.51. Sodium 127, potassium 4, chlorides 94, CO2 25, anion gap 8, BUN 13, creatinine 0.81. LDH is 1969, and C-reactive protein is 8.9. Chest x-ray shows bilateral infiltrates. Progress note dated 02/28/2021. 35-year-old male with a diagnosis of acute hypoxemic respiratory failure secondary to COVID 19 pneumonia. Chest x-ray showed multifocal bilateral infiltrates. The patient also has obesity, sleep apnea syndrome, lymphopenia, hyponatremic, and liver function abnormalities, all consistent with coronavirus infection. Yesterday, the patient was on high flow nasal O2, and nonrebreather mask. This morning, the respiratory therapist switch him over to AIRVO, at 60 L/m and 90% FiO2. The patient is not receiving any IV fluids. D-dimer is 4.62. Patient was reevaluated today on 03/01/2021, patient remains on selective, however I was called to see the patient. He seems to be in severe respiratory distress. Patient is on BiPAP, his respiratory rate is 16 times per minute, patient is anxious, and his O2 saturation is 92%. Clearly the patient is in severe respiratory distress, chest x-ray showed bilateral patchy infiltrates, and a dilated stomach, and some dilated bowel loops. Could not place a nasogastric tube because the patient was on BiPAP, and noted to be desaturating easily. As soon as I evaluated the patient, I recommended immediate transfer to the ICU, intubation mechanical ventilation. Patient will be placed on tidal volume is 400, assist control rate of 30, 100% FiO2, and PEEP of 10. Follow-up chest x-ray will be done post intubation, and a nasogastric tube will also be placed as soon as the patient is intubated. We are in the process of transferring the patient now to the ICU for intubation mechanical ventilation, as his pulmonary status seems to be deteriorating quite fast. ABG from earlier today showed a pO2 of 78 pCO2 of 55 pH of 7.24, and this was on BiPAP 100% FiO2. This ABG was done at 8:15 AM. Inflammatory markers noted to be on the rise, LDH is 2035, and C-reactive protein is 4.5. The CBC count is 19.9 hemoglobin is 15.5. D-dimer is 4.62. Sodium is low at 127 potassium is 5.0. Renal profile is normal. Patient was reevaluated today on 03/02/2021, remains in the ICU, patient had to be intubated yesterday. His pulmonary status deteriorated in spite of being maximized on BiPAP. Hence I recommended intubation and mechanical ventilation. He is now on assist control rate of 3 to tidal volume is 420 FiO2 is 95% and PEEP of 16. ABG showed a pO2 of 87 pCO2 of 59 pH of 7.31. Peak airway pressure is 34, static pressure is 32. Patient is on propofol at 60 Nimbex at 1.5, I recommended adding fentany propofol and Nimbex. Patient was intubated on 03/01. He has a low-grade fever, I would place the patient empirically on Zosyn, patient will be pancultured today. Including blood cultures, sputum cultures, and urine cultures. We'll also order a pro calcitonin on this patient. D-dimer today is 1.81. Blood sugar is 150. WBC count is 15 hemoglobin is 13.7. LDH is coming down to 1221, and C-reactive protein is a bit elevated at 5.4. Chest x- ray continues to show bilateral patchy infiltrates, slightly improved, but that is mostly because of high PEEP Patient was reevaluated today on 03/03/2021, remains in the ICU, intubated and mechanically ventilated. Sedated and paralyzed with Nimbex. He is on assist control rate of 3 to tidal volume 420 FiO2 85% and PEEP of 16 his ABG showed a pO2 of 66 pCO2 of 55 pH of 7.39. Patient is noted to have some minimal air leak from the endotracheal tube, and respiratory will adjust endotracheal tube and possibly put somewhere in the cough. His ileus seems to be improving. Patient had 2 bowel movements last night. And he will be restarted today on trickle feeding. A shunt remains on IV fluid at 75 mL per hour in the formal 0.9 normal saline. Propofol at 70% and all at one except 1.5. Chest x-ray is showing minimal improvement in his bilateral patchy infiltrates. WBC count is 15.3 hemoglobin is 12.2 hematocrit is 38.2 electrolytes are normal, renal profile is normal LDH is 1034. C-reactive protein is 2.8. Patient was reevaluated today on 03/04/2021, patient remains in the ICU, intubated and mechanically ventilated. He is on assist control rate of 3 to tidal volume is 420 FiO2 85% PEEP of 6 however I cut down his FiO2 and I plan to maintain O2 saturation just at 90% if possible. I did cut down his FiO2 to 75%. The PEEP the same at 16. Patient remains on propofol 70 Nimbex 1.5 fentanyl and 0.9 normal saline at 75 mL per hour. WBC count is 11.9 hemoglobin is 11.7. ABG showed a pO2 of 89 pCO2 53 pH of 7.41. Electrodes are normal bicarb is 34, renal profile is normal. X-ray continues to show bilateral bibasilar interst itial infiltrates consistent with COVID-19 pneumonia. LDH is down to 951. C- reactive protein is 1.6. Liver enzymes are relatively normal. D-dimer is 2.0. Patient was reevaluated today on 03/05/2021, patient remains in the ICU intubated, mechanically ventilated, sedated and paralyzed. He is on assist control rate of 3 to tidal volume is 420 FiO2 was 75% and I cut it down to 65% and PEEP at 16. ABG this morning showed a pO2 of 82 pCO2 of 48 pH of 7.43. Patient remains on enteral feeding/trickle feeding vital H3 at 10 mL per hour. His also on propofol at 50 mcg/kg/m, Nimbex at 2 mcg/kg/m, fentanyl 20 mcg/kg/h, and IV fluid at 85 ML per hour 0.9 normal saline. Chest x-ray continues to show by basilar rates consistent with COVID-19 pneumonia, slightly improving, could be because of relatively high PEEP. His inflammatory markers are also improving, LDH is 1034, C-reactive protein is 1.2. D-dimer is down to 1.85. CBC is relatively normal. Sputum cultures have been positive for Moraxella catarrhalis and MSSA. This will be treated with cefazolin and doxycycline. 03/19/2021, patient is awake, patient is calm and comfortable, communicating, although 4 extremities, although we will let he feels better and is able to raise his arms against gravity and move his feet and raised in size. He is very much appropriate is oriented and alert 3. He remains on trach collar and is of f the mechanical ventilator. Currently on 80% trach collar with a pulse ox of 88-89%. Repeat chest incision from today showing right pulmonary infiltrates specially in the lower lobes with some slight interval worsening of the right lower lobe pulmonary infiltrate and there is also air under the diaphragm consistent with pneumoperitoneum. The patient has MSSA in his rhythm. He is currently on Zosyn which is a adequate coverage for his MSSA in his sputum and it is all and is also adequate coverage for his underlying pneumoperitoneum and gastric complications postoperative discomfort. Note that his abdomen remains soft and there is no indication for underlying sepsis or abdominal catastrophe post PEG tube insertion despite the presence of pneumoperitoneum. He has been kept nothing by mouth. Is receiving PPN for nutritional support. PEG tube in place to drainage which is dependent drainage for now. Meanwhile, the patient is on Keppra. No seizure activity has been noted. He remains on Decadron. He is on a dose of 4 mg by mouth daily. D-dimer is on the rise is up to 15 and the patient's Lovenox dose will be adjusted accordingly. No fever. He is still positive for COVID-19 based on that evaluation. His LDH level is 752 which is low and his pro-calcitonin level is at 0.14. Patient was reevaluated today on 03/20/2021, remains in the ICU, patient is sitting in bed, in no distress, he has a trach collar and 60% FiO2 in place, patient seems to be very comfortable. He is receiving TPN. He seems to be alert and oriented 3, following instructions. I plan to discontinue TPN today and start enteral feeding via PEG tube. We will ask social security specialist to evaluate for possible placement. Last week there was a delay in his transfer mostly because of his seizures and he is now on Keppra, has been seizure-free for the last few days. Again the patient seems to be comfortable, following instructions, chest x-ray continues to show by basilar infiltrates. CBC is relatively normal basic metabolic profile and profile are normal Patient was reevaluated today on 03/21/2021, remains in the ICU, remains on trach collar at 40%, patient had another seizure yesterday requiring Ativan. Patient was supposed to transferred to [facility], and now they are declining the tr aries as there is no bed availability in that facility. Neurology would like the patient to be transferred, however since there is no bed, we had no choice but continue to monitor the patient and treat his seizures accordingly based on the recommendation of the neurologist on the case. May have to consider transferring the patient to [facility] if possible. His seizure yesterday lasted about 3 minutes. And his dose of Keppra has been increased. Patient received a total of 2 mg of Ativan yesterday. And he was postictal. His enteral feeding is presently on hold because of PEG tube site is draining and possibly leaking surgery is to address his PEG tube again today. Chest x-ra y continues to show bilateral inflammatory changes not much change since yesterday. CBC is relatively normal electrodes are normal renal profile is normal Objective - Vital Signs Vital signs: Vital Signs Temp 99.2 F 03/21/21 04:00 Pulse 88 03/21/21 07:00 Resp 40 H 03/21/21 07:00 BP 104/61 03/21/21 07:00 Pulse Ox 92 L 03/21/21 07:00 Intake & Output 03/20/21 03/21/21 03/21/21 18:59 06:59 18:59 Intake Total 1039 190 10 Output Total 1005 840 90 Balance 34 -650 -80 Weight 108.5 kg 110.2 kg Intake: IV 410 120 10 Piperacillin-Tazobactam 3 200 .375 gm In Sodium Chloride 0.9% 100 ml @ 25 mls/hr IVPB Q8HR [facility] Rx# :[id number] Sodium Chloride 0.9% 1, 110 120 10 000 ml @ 10 mls/hr IV . Q24H [facility] Rx#:[id number] levETIRAcetam IV 1,000 mg 100 In Saline 1 100ml.bag @ 400 mls/hr IVPB Q12HR [facility] Rx#:[id number] Tube Feeding 539 70 Other 90 0 Output: Urine 1005 840 90 Other: Voiding Method Indwelling Catheter Indwelling Catheter ABP, PAP, CO, CI - Last Documented Arterial Blood Pressure 102/72 - Exam Physical Exam: Revealed 35-year-old white on trach collar, in no distress. Head: Atraumatic, normocephalic. Tracheostomy is intact. HEENT:[Neck is supple.] [No neck masses.] [No thyromegaly.] [No JVD.] Moist mucous membranes.. Chest: [Symmetrical chest expansion minimal crackles at the bases. No rhonchi, no wheezes. Cardiac Exam: [Normal S1 and S2, no S3 gallop, no murmur.] Abdomen: Soft, , nontender, no megaly, no rebound, no guarding, PEG tube is intact. Minimal purulent drainage noted around the PEG tube. Extremities: [No clubbing, 1+ bipedal edema, no cyanosis.] Neurological Exam: Alert and oriented 3 no gross focal deficit seems to be generally weak. Psychiatric: Normal mood, affect and normal mental status examination Skin: Multiple tattoos all over, otherwise unremarkable. Lymphatics: No lymphadenopathy. - Labs CBC & Chem 7: 03/21/21 03:05 03/21/21 03:05 Labs: Abnormal Lab Results - Last 24 Hours (Table) 03/21/21 03/21/21 03/21/21 Range/Units 01:58 03:05 03:05 RBC 3.87 L (4.30-5.90) m/uL Hgb 11.7 L (13.0-17.5) gm/dL Hct 34.9 L (39.0-53.0) % Lymphocytes # 0.8 L (1.0-4.8) k/uL Sodium 136 L (137-145) mmol/L Creatinine 0.54 L (0.66-1.25) mg/dL POC Glucose (mg/dL) 115 H (75-99) mg/dL ALT 73 H (4-49) U/L Total Protein 5.9 L (6.3-8.2) g/dL Albumin 3.3 L (3.5-5.0) g/dL Assessment and Plan Assessment: Impression: Acute hypoxic respiratory failure secondary to COVID-19 pneumonia, requiring intubation mechanical ventilation. On 03/01/2021. Status post tracheostomy and PEG tube placement on 03/10, mostly because of failure to wean. Patient is now on trach collar. MSSA tracheobronchitis, possible MSSA pneumonia patient remains on Zosyn. Acute and new onset seizure activity, remains on Keppra. Dose was increased yesterday by neurology on the case. Pneumoperitoneum post-PEG tube insertion, that is expected. Remains on Zosyn. History of MSSA and Moraxella catarrhalis tracheobronchitis/bronchopneumonia. Morbid obesity. elevated liver enzymes secondary to above., improved. 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 Recommendation: Will transfer patient to a stepdown bed today, no need for ICU stay at this point. Continue trach collar and titrate FiO2 down accordingly. Continue Decadron dose has been decreased. Continue Lovenox at 50 mg subcu twice a day. Restart enteral feeding once cleared by surgery, having issues with his PEG tube at present. Neurology to continue to follow regarding his seizures. Neurology would like to be transferred, however no bed is available at [facility]. We will have to try possibly another institution. Continue COVID-19 cocktail including Decadron and Lovenox. Patient was beyond the window for REM Patient did receive toci We'll continue to follow. Time with Patient: Less than 30
--- NOTE | 2021-03-21 12:24 | XR ---
2 view abdomen HISTORY: Abdominal bloating 2 views the abdomen on 3 images, comparison prior exam 03/17/2021, 03/16/2021 There is motion on the exam, there are overlying artifacts, gastrostomy tube suspected in the left up per quadrant. Bibasilar patchy density within the lungs is noted. There may be a spinal curvature. No evident bowel obstruction, patient's pneumoperitoneum not as well seen possibly due to technique. Po ssible anchor sutures present in the left upper quadrant. IMPRESSION: Motion on exam. Postprocedural changes. Findings consistent with patient's history Covid pneumonia. Pneumoperitoneum not as well seen as on prior exams possibly due to motion.
[2021-03-21 13:48] VITALS: TEMP 98.7
[2021-03-21] MEDS ORDERED: levETIRAcetam IV 1,500 MG in SALINE 1 100ML.BAG IVPB SCH (15:00)
[2021-03-21 15:02] LABS: Glucose,Whole Blood 77 mg/dL (75-99)
[2021-03-21 16:07] VITALS: BP 100/62; PULSE 76; RESP 34
--- NOTE | 2021-03-23 16:08 | EEG ---
ELECTROENCEPHALOGRAM REPORT DATE OF PROCEDURE: 03/21/2021 ELECTROENCEPHALOGRAM (EEG) REPORT: TECHNIQUE: This is a report from a prolonged 2-1/2-hour continuous video EEG performed using an 18-channel 10/20 electrode placement system. HISTORY: COVID pneumonia and hypoxia. Last week the patient had a new-onset seizure. CURRENT MEDICATIONS: Piperacillin, Ativan, Keppra, Decadron, Lovenox and albuterol. FINDINGS: Recording start time: 03/21/2021 at 11:51 a.m. Recording end time: 03/21/2021 at 2:33 p.m. EVENTS: During this 2-1/2-hour continuous video EEG, no clinical or electrographic seizures were recorded. BACKGROUND: The background activity consisted of 8-9 hertz rhythmic waveforms, symmetric both posterior quadrants. ACTIVATION: Hyperventilation: Not performed. Photic stimulation: Not performed. SLEEP: Stages I and II sleep noted. ABNORMALITIES: None. IMPRESSION: Normal 2-1/2-hour continuous video EEG. No clinical or electrographic seizures were recorded. No epileptiform activity was present. MMODL / IJN: [id number] /
== END 2021-03-21 16:06 | disposition short-term general hospital (02) | DRG 4 ==
LOC: EC 09:01 → 4SSUR 13:14 → 1SOBS 17:38 → 2SICU 03-01 11:24
PROVIDERS: ADMIT Internal Medicine; ATTEND Internal Medicine
PROC: 5A0945A Assistance with Respiratory Ventilation, 24-96 Consecutive Hours, High Flow/Velocity Cannula (ICD-10-PCS; 2021-02-26)
PROC: 5A1955Z Respiratory Ventilation, Greater than 96 Consecutive Hours (ICD-10-PCS; 2021-03-01)
PROC: 0BH17EZ Insertion of Endotracheal Airway into Trachea, Via Natural or Artificial Opening (ICD-10-PCS; 2021-03-01)
PROC: 4A133B1 Monitoring of Arterial Pressure, Peripheral, Percutaneous Approach (ICD-10-PCS; 2021-03-01)
PROC: 03HY32Z Insertion of Monitoring Device into Upper Artery, Percutaneous Approach (ICD-10-PCS; 2021-03-01)
PROC: 4A133J1 Monitoring of Arterial Pulse, Peripheral, Percutaneous Approach (ICD-10-PCS; 2021-03-01)
PROC: 5A09357 Assistance with Respiratory Ventilation, Less than 24 Consecutive Hours, Continuous Positive Airway Pressure (ICD-10-PCS; 2021-03-01)
PROC: XW033H5 Introduction of Tocilizumab into Peripheral Vein, Percutaneous Approach, New Technology Group 5 (ICD-10-PCS; 2021-03-01)
PROC: 0D9670Z Drainage of Stomach with Drainage Device, Via Natural or Artificial Opening (ICD-10-PCS; 2021-03-01)
PROC: 02H633Z Insertion of Infusion Device into Right Atrium, Percutaneous Approach (ICD-10-PCS; 2021-03-01)
PROC: 3E0G76Z Introduction of Nutritional Substance into Upper GI, Via Natural or Artificial Opening (ICD-10-PCS; 2021-03-03)
PROC: 0DH63UZ Insertion of Feeding Device into Stomach, Percutaneous Approach (ICD-10-PCS; principal; 2021-03-10 07:30)
PROC: 0B110F4 Bypass Trachea to Cutaneous with Tracheostomy Device, Open Approach (ICD-10-PCS; principal; 2021-03-10 07:30)
PROC: 3E0G76Z Introduction of Nutritional Substance into Upper GI, Via Natural or Artificial Opening (ICD-10-PCS; 2021-03-11)
PROC: 3E033XZ Introduction of Vasopressor into Peripheral Vein, Percutaneous Approach (ICD-10-PCS; 2021-03-16)
PROC: 3E0436Z Introduction of Nutritional Substance into Central Vein, Percutaneous Approach (ICD-10-PCS; 2021-03-17)
PROC: 0BH17EZ Insertion of Endotracheal Airway into Trachea, Via Natural or Artificial Opening (ICD-10-PCS; 2021-03-17)
PROC: 4A133B1 Monitoring of Arterial Pressure, Peripheral, Percutaneous Approach (ICD-10-PCS; 2021-03-17)
PROC: 4A133J1 Monitoring of Arterial Pulse, Peripheral, Percutaneous Approach (ICD-10-PCS; 2021-03-17)
PROC: 03HY32Z Insertion of Monitoring Device into Upper Artery, Percutaneous Approach (ICD-10-PCS; 2021-03-17)
DX: A41.89 Other specified sepsis (principal); U07.1 COVID-19; J12.82 Pneumonia due to coronavirus disease 2019; J80 Acute respiratory distress syndrome; J15.211 Pneumonia due to Methicillin susceptible Staphylococcus aureus; J15.6 Pneumonia due to other Gram-negative bacteria; E43 Unspecified severe protein-calorie malnutrition; Z68.41 Body mass index [BMI] 40.0-44.9, adult; E22.2 Syndrome of inappropriate secretion of antidiuretic hormone; K56.7 Ileus, unspecified; G62.81 Critical illness polyneuropathy; G72.81 Critical illness myopathy; G91.9 Hydrocephalus, unspecified; K94.29 Other complications of gastrostomy; G40.909 Epilepsy, unspecified, not intractable, without status epilepticus; E66.01 Morbid (severe) obesity due to excess calories; K66.8 Other specified disorders of peritoneum; I95.9 Hypotension, unspecified; D72.810 Lymphocytopenia; E87.8 Other disorders of electrolyte and fluid balance, not elsewhere classified; J20.9 Acute bronchitis, unspecified; G47.33 Obstructive sleep apnea (adult) (pediatric); J45.990 Exercise induced bronchospasm; R32 Unspecified urinary incontinence; R74.01 Elevation of levels of liver transaminase levels; R74.8 Abnormal levels of other serum enzymes; Y83.3 Surgical operation with formation of external stoma as the cause of abnormal reaction of the patient, or of later complication, without mention of misadventure at the time of the procedure; Y92.230 Patient room in hospital as the place of occurrence of the external cause; Z82.49 Family history of ischemic heart disease and other diseases of the circulatory system; Z80.3 Family history of malignant neoplasm of breast
CPT/HCPCS: 36415; 36573; 36600; 43246; 70450; 70496; 70498; 71045; 74018; 74019; 74176; 80048; 80053; 81001; 82330; 82553; 82728; 82805; 83605; 83615; 83625; 83735; 84100; 84145; 85025; 85027; 85379; 85384; 85610; 85730; 86140; 87040; 87070; 87075; 87077; 87186; 87205; 87635; 94002; 94003; 94640; 94660; 94760; 95713; 95822; 96374; 99285